=== PATIENT | male | born 1955 | race Caucasian/White ===

== ENCOUNTER → 2020-02-19 15:35 | Outpatient (BNVA) | payer MEDICARE, SELFPAY | PROVIDERS: PCP Internal Medicine; Referring Provider Internal Medicine; Visit Provider Surgery Vascular Surgery | DX: I83.11 Varicose veins of right lower extremity with inflammation (principal) | CPT/HCPCS: 99213 ==

== ENCOUNTER → 2020-02-24 16:00 | Outpatient (BNVA) | payer MEDICARE, SELFPAY | PROVIDERS: PCP Internal Medicine; Referring Provider Internal Medicine; Visit Provider Internal Medicine | DX: G47.33 Obstructive sleep apnea (adult) (pediatric) (principal); J44.9 Chronic obstructive pulmonary disease, unspecified; J96.11 Chronic respiratory failure with hypoxia; J96.12 Chronic respiratory failure with hypercapnia; E66.9 Obesity, unspecified; Z68.39 Body mass index [BMI] 39.0-39.9, adult; Z79.899 Other long term (current) drug therapy | CPT/HCPCS: 99213 ==

== ENCOUNTER → 2020-03-08 19:06 | Outpatient (REF) | payer MEDICARE, SELFPAY | LOC: HO.SL 19:06 | PROVIDERS: Visit Provider Internal Medicine | DX: G47.33 Obstructive sleep apnea (adult) (pediatric) (principal) | CPT/HCPCS: 95811 ==

== ENCOUNTER → 2020-03-15 09:58 | Outpatient (BNVA) | payer MEDICARE, SELFPAY | PROVIDERS: PCP Internal Medicine; Referring Provider Internal Medicine; Visit Provider Internal Medicine | DX: J44.9 Chronic obstructive pulmonary disease, unspecified (principal); J96.92 Respiratory failure, unspecified with hypercapnia; J96.91 Respiratory failure, unspecified with hypoxia; G47.33 Obstructive sleep apnea (adult) (pediatric); E66.9 Obesity, unspecified; Z87.891 Personal history of nicotine dependence | CPT/HCPCS: 99212 ==

== ENCOUNTER → 2020-04-09 11:28 | Outpatient (BNVA) | payer MEDICARE, SELFPAY | PROVIDERS: PCP Internal Medicine; Referring Provider Internal Medicine; Visit Provider Surgery Vascular Surgery | DX: I83.11 Varicose veins of right lower extremity with inflammation (principal) | CPT/HCPCS: 36482 ==

== ENCOUNTER 2020-04-12 09:56 | Outpatient (REF) | payer MEDICARE, SELFPAY ==
--- NOTE | 2020-04-12 | US_ITS ---
EXAMINATION: US VENOUS ULTRASOUND WITH DOPPLER LOWER EXTREMITY, RIGHT CLINICAL INFORMATION: Status post VenaSeal right leg 04/09/2020. COMPARISON: None. TECHNIQUE: Ultrasound of the deep veins is performed from the hip to the calf with compression sonography and color and pulse Doppler assessment. Spectral analysis with color-flow imaging is performed. FINDINGS: There is normal venous compression and respiratory variation and augmented flow. The visualized common femoral vein, superficial femoral vein, profunda femoral vein, popliteal vein, and the trifurcation region shows no evidence of deep venous thrombosis. There is no significant popliteal fossa cyst. There is thrombus visualized in right greater saphenous vein status post VenaSeal, approximate 5.9 cm from the junction with right superficial femoral vein. If the patient's symptoms persist, followup ultrasound in 5 days 7 days might be of value to exclude proximal propagation from a non-visualized calf vein. US/US venous duplex LE RT IMPRESSION: No DVT demonstrated in the right lower extremity.
== END 2020-04-12 09:57 | disposition home or self-care (01) ==
LOC: HO.HMGCX 09:56
PROVIDERS: PCP Internal Medicine; Visit Provider Surgery Vascular Surgery
DX: M79.604 Pain in right leg (principal)
CPT/HCPCS: 93971

== ENCOUNTER → 2020-05-04 10:05 | Outpatient (BNVA) | payer MEDICARE, SELFPAY | PROVIDERS: PCP Internal Medicine; Visit Provider Surgery Vascular Surgery | DX: Z48.812 Encounter for surgical aftercare following surgery on the circulatory system (principal) | CPT/HCPCS: 99212 ==

== ENCOUNTER → 2020-05-14 11:08 | Outpatient (BNVA) | payer MEDICARE, SELFPAY | PROVIDERS: PCP Internal Medicine; Visit Provider Internal Medicine Gastroenterology | DX: Z13.89 Encounter for screening for other disorder (principal) | CPT/HCPCS: Q3014 ==

== ENCOUNTER 2020-05-17 09:57 | Outpatient (REF) | payer MEDICARE, SELFPAY ==
--- NOTE | 2020-05-17 10:09 | XR_ITS ---
EXAMINATION: XR FOOT, LEFT CLINICAL INFORMATION: Left foot pain. COMPARISON: None TECHNIQUE: AP, lateral, and oblique views of the left foot. FINDINGS: There is no visible acute fracture, dislocation or subluxation. The ankle mortise and subtalar joints are normal. There is a small calcaneal heel and retrocalcaneal enthesophyte. The ankle mortise and subtalar joints are normal. XR/XR foot LT min 3V IMPRESSION: No visible acute fracture, dislocation or subluxation seen. Small calcaneal heel and retrocalcaneal enthesophytes.
== END 2020-05-17 09:58 | disposition home or self-care (01) ==
LOC: HO.XRAY 09:57
PROVIDERS: PCP Internal Medicine; Visit Provider Internal Medicine
DX: M79.672 Pain in left foot (principal)
CPT/HCPCS: 73630

== ENCOUNTER → 2020-05-31 09:37 | Outpatient (BNVA) | payer MEDICARE, SELFPAY | PROVIDERS: PCP Internal Medicine; Visit Provider Internal Medicine | DX: E66.9 Obesity, unspecified (principal); G47.33 Obstructive sleep apnea (adult) (pediatric); J44.9 Chronic obstructive pulmonary disease, unspecified; J96.91 Respiratory failure, unspecified with hypoxia; J96.92 Respiratory failure, unspecified with hypercapnia | CPT/HCPCS: 99212 ==

== ENCOUNTER 2020-07-14 | Day surgery (SDC) | payer MEDICARE, SELFPAY ==
[2020-07-14 12:55] VITALS: BP 100/38; PULSE 91; RESP 20; TEMP 36.7; O2SAT 99
[2020-07-14 13:10] VITALS: BP 125/54; PULSE 89; RESP 18; TEMP 36.4; O2SAT 95
[2020-07-14 13:25] VITALS: BP 131/69; PULSE 84; RESP 17; TEMP 36.4; O2SAT 95
--- NOTE | 2020-12-14 18:37 | P.BOP_ITS ---
Brief Operative Note Date of Service: 07/14/20 Pre-op diagnosis: same day relook EGD due to low BP post op from index procedure today Post-op diagnosis: other (stable clots in excision sites) Procedure: see op note Surgeon: Linda Shah MD Anesthesia: MAC Was an [employer] used for this Procedure?: No Estimated blood loss (mL): 0 Condition: stable Disposition: PACU
--- NOTE | 2020-12-14 18:40 | W.PM.OPN ---
Operative Note Operative Note Date of Service: 07/14/20 Narrative: Procedure Description: Re look EGD FLEXIBLE TRANSORAL UPPER GASTROINTESTINAL ENDOSCOPY UPPER ENDOSCOPY Consent: Indications for the procedure and potential complications of bleeding, perforation, reaction to medications and missed diagnosis were discussed with the patient and informed consent was obtained. Post index EGD procedure with Stomach polypectomy the patient was pale and had c/o nausea and epigastric discomfort, BP was depressed at 90 systolic. Abdomen was soft with mild tenderness in epigastrium. ECG obtained with SR, 1st deg block, no acute St changes. Patient given maalox and PPI, zofran re evaluated after 30 mins and felt better. However given he had several polyps removed and clips applied repeat EGD done to ensure no surreptitious bleeding prior to discharge home. Instrument: Olympus GIF H 190 J mid size upper endoscope Monitoring: Vital signs and clinical assessment, continuous EKG monitoring, Pulse oximetry, Carbon Dioxide monitoring and blood pressure monitoring were done throughout the procedure. Procedure: The patient was placed in the left lateral decubitis position and pre-procedure medications were administered and a bite block was placed. The endoscope was inserted into the mouth and advanced under direct vision to the third part of duodenum. A careful inspection was made as the upper endoscope was withdrawn including a retroflexed examination of the proximal stomach; Findings and interventions are described below. Findings: Larynx:normal Esophagus: Normal Stomach: Stable clots over areas of index procedure polypectomy sites noted. There was no active bleeding or concerning lesions. Duodenum: Normal bulb and descending duodenum, Intervention: none Impression/Findings: stable clot formation as would be expected after polypectomy, no active bleeding, he may have had a vasovagal event in post op from gastric distention PLAN: 1/ can go home 2/ avoid nsaids 3/ cont with o/p omeprazole
== END 2020-07-14 13:58 | disposition home or self-care (01) ==
LOC: HO.SSS 08-06 15:18
PROVIDERS: PCP Internal Medicine; Visit Provider Internal Medicine Gastroenterology
PROC: 0DJ08ZZ Inspection of Upper Intestinal Tract, Via Natural or Artificial Opening Endoscopic (ICD-10-PCS; CPT 43235; principal; 2020-07-14 11:50)
DX: K91.89 Other postprocedural complications and disorders of digestive system (principal); Y84.8 Other medical procedures as the cause of abnormal reaction of the patient, or of later complication, without mention of misadventure at the time of the procedure; Y92.238 Other place in hospital as the place of occurrence of the external cause; R03.1 Nonspecific low blood-pressure reading; R10.13 Epigastric pain; R11.0 Nausea; Z87.19 Personal history of other diseases of the digestive system; E66.9 Obesity, unspecified; I48.91 Unspecified atrial fibrillation; J44.9 Chronic obstructive pulmonary disease, unspecified; I10 Essential (primary) hypertension; E11.9 Type 2 diabetes mellitus without complications; Z79.4 Long term (current) use of insulin; Z79.01 Long term (current) use of anticoagulants; Z79.899 Other long term (current) drug therapy; Z79.51 Long term (current) use of inhaled steroids; Z88.8 Allergy status to other drugs, medicaments and biological substances; Z90.49 Acquired absence of other specified parts of digestive tract; Z87.891 Personal history of nicotine dependence
CPT/HCPCS: 43235; 82947; 88305; 88342; 93005; J0171; J2405

== ENCOUNTER 2020-07-14 08:04 | Day surgery (SDC) | payer MEDICARE, SELFPAY ==
[2020-07-09 12:51] VITALS: BMI 40.8
--- NOTE | 2020-07-13 10:15 | HO.ANESPROP2 ---
HPI - Anesthesia Eval Consult details Narrative: 64yo M for Upper Endoscopy Hypovent syndrome, CPAP/O2 QHS and prn during the day [facility] Active Problems Active Problems: All Active Problems (Updated 07/09/20 @ 12:47 by Sera Lynn) Varicose veins of right lower extremity with inflammation (Acute) Hyperplastic polyps of stomach (Acute) Duodenal ulcer (Acute) Respiratory failure with hypoxia and hypercapnia (Acute) COPD (chronic obstructive pulmonary disease) (Acute) TAE (obstructive sleep apnea) (Acute) Obesity (BMI 30-39.9) (Acute) Past Medical History Medical History Asthma Atrial fibrillation Cervical disc herniation COPD (chronic obstructive pulmonary disease) Diabetes Gynecomastia History of cardioversion Hyperlipidemia Hypertension Hypogonadism Obesity (BMI 30-39.9) TAE (obstructive sleep apnea) Respiratory failure with hypoxia and hypercapnia Family History Family History Father No problems noted. Mother No problems noted. Surgical History Surgical History (Updated 07/09/20 @ 12:47 by Sera Lynn) H/O arthroscopic knee surgery H/O colonoscopy H/O knee surgery H/O prior ablation treatment (04/09/20) H/O umbilical hernia repair H/O vasectomy History of cholecystectomy History of esophagogastroduodenoscopy (EGD) History of penile implant Hx of appendectomy Hx of neck surgery Hx of shoulder surgery Social History Social History Alcohol intake: current Alcohol intake frequency: a few times a month Alcohol type: beer Smoking Status: Former smoker Tobacco Type: Cigarette Packs Per Day: 2.5 Cigarettes Per Day: 50.0 Years Smoked: 40 Meds Allergies Allergy/AdvReac Type Severity Reaction Status Date / Time oxycodone [OXYCODONE] AdvReac Intermediate HALLUCINATIONS, Verified 05/31/20 09:49 DIZZINESS simvastatin AdvReac Intermediate myalgias Verified 07/09/20 12:43 elevated CPK Home Medications Medication Instructions Recorded Confirmed Last Taken Type albuterol sulfate 90 mcg/actuation 2 puff PO Q4H PRN 02/02/20 07/09/20 Unknown History aerosol inhaler amiodarone 200 mg tablet 200 mg PO DAILY 02/02/20 07/14/20 07/14/20 07:00 History 200 blood sugar diagnostic #10 ea 02/02/20 Unknown History cholecalciferol (vitamin D3) 25 25 mcg PO DAILY 02/02/20 07/09/20 Unknown History mcg (1,000 unit) tablet flu vac [id number] 36mos up(PF) ml IM 02/02/20 Unknown History gabapentin 600 mg tablet 600 mg PO TID 02/02/20 07/14/20 07/14/20 07:30 History 600 glucagon (human recombinant) 1 mg mg SUBCUT DAILY 02/02/20 Unknown History solution for injection glucose 4 gram chewable tablet 4 g PO 02/02/20 Unknown History ipratropium 0.5 mg-albuterol 3 mg 3 ml INHALATION Q6-8H PRN 02/02/20 07/09/20 Unknown History (2.5 mg base)/3 mL nebulization soln omeprazole 40 mg capsule,delayed 40 mg PO BID 02/02/20 07/09/20 Unknown History release pneumoc 13-leon conj-dip cr(PF) 0.5 0.5 ml IM DIRECTED 02/02/20 Unknown History mL IM syringe rosuvastatin 40 mg tablet 40 mg PO DAILY 02/02/20 07/09/20 Unknown History triamcinolone acetonide 0.1 % applic TOPICAL BID 02/02/20 Unknown History topical cream fluticasone 250 mcg-salmeterol 50 1 inh INHALATION BID 02/24/20 07/14/20 07/14/20 07:30 History mcg/dose blistr powdr for 1 inhalation insulin syringe-needle U-100 0.3 #10 ea 03/15/20 Unknown History mL 31 gauge x 09/19 metformin 1,000 mg tablet 1,000 mg PO BID 03/15/20 07/09/20 Unknown History nystatin 100,000 unit/gram topical TOPICAL BID 03/15/20 Unknown History powder pen needle, diabetic 32 gauge x #50 ea 03/15/20 Unknown History insulin aspart U-100 100 unit/mL 5 unit SUBCUT TID 05/14/20 07/09/20 Unknown History subcutaneous cartridge insulin degludec 100 unit/mL (3 10 unit SUBCUT BEDTIME 05/14/20 07/09/20 Unknown History mL) subcutaneous pen glipizide 5 mg tablet 5 mg PO DAILY 05/31/20 07/09/20 Unknown History Exam Exam Date and Time: July 13, 2020 1015 Height,Weight and Vital Signs: Height 5 ft 9 in Weight 125.645 kg Narrative Narrative: ECHO 11/2019 LV sys function is hyperdynamic 65-70% Indeterminate filling pressure Nml RV cavity size and systolic function LA is moderately dilated, RA is moderately dilated Mod elevated RA pressure. Mod pulmonary htn Assessment and Plan Assessment Anesthesia Assessment: Chart Reviewed
[2020-07-14] VITALS (10 sets, daily range): BP systolic 92–134; BP diastolic 39–64; PULSE 66–86; RESP 17–20; TEMP 36.3–36.9; O2SAT 95–100
[2020-07-14] MEDS: Lactated Ringers 1,000 ML 50 ML IV (08:42)
[2020-07-14 09:02] LABS: Glucose, Whole Blood 203 mg/dL (60-115)
--- NOTE | 2020-07-14 09:26 | P.HPSUR_ITS ---
Pre-Procedural Eval Section B Chief Complaint: gastric polyps Relevant Family History (Specify if Yes): No Relevant Social History: None (ex smoker) Present Medications: see Short Stay Collaborative assessment Medical History: Significant History (Asthma Atrial fibrillation Cervical disc herniation COPD (chronic obstructive pulmonary disease) Diabetes Gynecomastia History of cardioversion Hyperlipidemia Hypertension Hypogonadism Obesity (BMI 30-39.9) TAE (obstructive sleep apnea) Respiratory failure with hypoxia and hypercapnia) History of Previous Operations: Relevant previous surgery/procedure and date(s) (H/O arthroscopic knee surgery H/O colonoscopy H/O knee surgery H/O prior ablation treatment (04/09/20) H/O umbilical hernia repair H/O vasectomy History of cholecystectomy History of esophagogastroduodenoscopy (EGD) History of penile implant Hx of appendectomy Hx of neck surgery Hx of shoulder surge) Allergies: Allergies Allergy/AdvReac Type Severity Reaction Status Date / Time oxycodone [OXYCODONE] AdvReac Intermediate HALLUCINATIONS, Verified 05/31/20 09:49 DIZZINESS simvastatin AdvReac Intermediate myalgias Verified 07/09/20 12:43 elevated CPK Review of Systems Sugical H&P ROS: Negative: Constitution, Cardiovascular, Respiratory, Neurologic al, Psychiatric, Hem-Onc, Allergic/Immunologic, Gastrointestinal, Genitourinary, Musculoskeletal, Integumentary, Endocrine and Eyes/Ears/Nose/Throat Exam Surgical H&P Exam: Normal: HEENT, Normal: Heart, Normal: Lungs, Normal: Extremities, Normal: Abdomen, Normal: Skin and Normal: Neurological Plan Diagnosis/Plan: Unchanged I have reviewed the history and physical and performed a pertinent physical examination on my patient. No changes have occurred unless specified.
--- NOTE | 2020-07-14 10:26 | PM.OP ---
Brief Operative Note Date of Service: 07/14/20 Pre-op diagnosis: anemia, and gastric polyps Post-op diagnosis: same Procedure: see op note Surgeon: Linda Shah MD Anesthesia: MAC Estimated blood loss (mL): 0 Condition: stable Disposition: PACU
--- NOTE | 2020-07-14 10:27 | W.PM.OPN ---
Operative Note Operative Note Date of Service: 07/14/20 Narrative: Procedure Description: EGD FLEXIBLE TRANSORAL UPPER GASTROINTESTINAL ENDOSCOPY UPPER ENDOSCOPY Consent: Indications for the procedure and potential complications of bleeding, perforation, reaction to medications and missed diagnosis were discussed with the patient and informed consent was obtained. Instrument: Olympus GIF H 190 J mid size upper endoscope Monitoring: Vital signs and clinical assessment, continuous EKG monitoring, Pulse oximetry, Carbon Dioxide monitoring and blood pressure monitoring were done throughout the procedure. Procedure: The patient was placed in the left lateral decubitis position and pre-procedure medications were administered and a bite block was placed. The endoscope was inserted into the mouth and advanced under direct vision to the third part of duodenum. A careful inspection was made as the upper endoscope was withdrawn including a retroflexed examination of the proximal stomach; Findings and interventions are described below. Findings: Larynx:normal Esophagus: GE junction at 42 cm, diaphragm hiatus at 42 cm, no varices or esophagitis. Stomach: Patchy gastric erythema bx taken, one small erosion noted. Biopsies were obtained. Lax LES noted on retroflexed examination of the cardia. There were 5 polypoid lesions ranging from 8-16 mm in size, two of which were pedunculated-noted in the mid stomach body and proximal stomach. 1 ml of epinephrine was injected into 3 of these and these were removed using hot snare, the others were removed with cold snare. The larger polypectomy sites had clips applied 8 in total between them, one clip did not deploy properly. Residual polyp tissue was ablated with soft tip coag. Duodenum: Normal bulb and descending duodenum Intervention: Biopsies as noted above, polypectomy and epinephrine injection Impression/Findings: gastric polyps gastritis, erosion PLAN: avoid nsaids for 5 days can have regular diet today if any abdominal pain, melena, call the office
--- NOTE | 2020-07-14 10:44 | PC.NURSE ---
patient nausous and vomiting dr. colmenares ordering meds
[2020-07-14] MEDS: ondansetron HCL 4 MG/2 ML VIAL IVPUSH (10:53)
[2020-07-14] MEDS: Magnesium Hydrox/Alum Hydrox 30 ML ORAL.SUSP PO (11:19)
[2020-07-14] MEDS: Pantoprazole Sodium 40 MG/10 ML VIAL IVPUSH (11:19)
--- NOTE | 2020-07-14 11:44 | ECG_ITS ---
Test Reason : CHEST PAIN Blood Pressure : / mmHG Vent. Rate : 072 BPM Atrial Rate : 072 BPM P-R Int : 234 ms QRS Dur : 096 ms QT Int : 428 ms P-R-T Axes : 056 000 022 degrees QTc Int : 468 ms Sinus rhythm with 1st degree A-V block Otherwise normal ECG When compared with ECG of 02-DEC-2019 07:34, Sinus rhythm has replaced Atrial fibrillation Referred By: Linda Shah Electronically Signed By:Taiwo Kelly
--- NOTE | 2020-07-14 11:46 | PC.NURSE ---
ekg done at bedside dr huerta and anesthesia plan for patient to return emergent to endo to look at clips for bleeding due to pain and drop in bp.
== END 2020-07-14 13:58 | disposition home or self-care (01) ==
PROVIDERS: PCP Internal Medicine; Visit Provider Internal Medicine Gastroenterology
PROC: 0DJ08ZZ Inspection of Upper Intestinal Tract, Via Natural or Artificial Opening Endoscopic (ICD-10-PCS; CPT 43235; principal; 2020-07-14 09:20)
DX: K31.7 Polyp of stomach and duodenum (principal); K29.60 Other gastritis without bleeding; K44.9 Diaphragmatic hernia without obstruction or gangrene; I48.91 Unspecified atrial fibrillation; I10 Essential (primary) hypertension; J44.9 Chronic obstructive pulmonary disease, unspecified; E11.9 Type 2 diabetes mellitus without complications; G47.33 Obstructive sleep apnea (adult) (pediatric); J96.12 Chronic respiratory failure with hypercapnia; J96.11 Chronic respiratory failure with hypoxia; Z79.51 Long term (current) use of inhaled steroids; Z79.4 Long term (current) use of insulin; F17.210 Nicotine dependence, cigarettes, uncomplicated; Z79.899 Other long term (current) drug therapy; Z88.8 Allergy status to other drugs, medicaments and biological substances
CPT/HCPCS: 43251; 43236; 82947; 88305; 88342; 93005; J0171; J2405

== ENCOUNTER 2020-08-13 14:55 | Inpatient (IN) | payer MEDICARE, SELFPAY ==
--- NOTE | ~2020-08-13 | CT_ITS ---
EXAMINATION: CT SOFT TISSUE NECK WITH CONTRAST CLINICAL INFORMATION: Neck and jaw swelling. COMPARISON: None TECHNIQUE: Following the administration of 100 mL of Omnipaque 300 intravenous contrast, helical imaging was performed in the axial plane with generation of coronal and sagittal reformatted images. This CT examination was performed using dose optimization techniques as appropriate, variously including the following: *Automated exposure control *Adjustment of mA and/or kV according to patient size (this includes techniques or standardized protocols for targeted exams where dose is matched to indication/reason for exam; i.e. extremities or head) *Use of iterative reconstruction technique DLP: 912 mGy-cm FINDINGS: There is a large elongated calculus within the left submandibular duct along the floor of mouth measuring up to 1.5 cm in maximal dimension. The left submandibular gland appears edematous with inflammatory stranding extending through the submandibular triangle. The subcutaneous and deep fat appear infiltrated in the platysma is mildly thickened. No drainable collection is seen. The right parotid glands and right submandibular gland appear normal. There is right-sided palatine tonsillolith. Calcification is seen within the epiglottis. The laryngeal contours are otherwise unremarkable. Reactive appearing left level 2 lymph nodes are seen. There is no suppurative adenopathy. The thyroid gland is unremarkable. No enlarged upper mediastinal lymph nodes are seen. Centrilobular and paraseptal emphysema is present within the upper lungs. The major neck vessels are patent. The imaged portions of the intracranial contents appear normal. Degenerative changes are noted in the spine. The paranasal sinuses are clear. CT/CT soft tissue neck w con IMPRESSION: Large obstructing calculus within the left submandibular duct with associated acute sialoadenitis. No drainable collection.
[2020-08-13 15:26] VITALS: BP 166/75; PULSE 87; RESP 20; TEMP 36.8; O2SAT 97; BMI 48.9
[2020-08-13 16:59] VITALS: BP 163/81; PULSE 84; RESP 18; TEMP 36.8; O2SAT 95
--- NOTE | 2020-08-13 17:14 | ECG_ITS ---
Test Reason : NECK PAIN Blood Pressure : / mmHG Vent. Rate : 084 BPM Atrial Rate : 084 BPM P-R Int : 214 ms QRS Dur : 096 ms QT Int : 406 ms P-R-T Axes : 048 000 033 degrees QTc Int : 479 ms Sinus rhythm with 1st degree A-V block Otherwise normal ECG When compared with ECG of 14-JUL-2020 11:42, No significant change was found Referred By: Martine Dillon Electronically Signed By:NEHA WALKER
--- NOTE | 2020-08-13 17:27 | ED.DENTAL ---
HPI - Dental/Oral General Chief complaint: Dental/Oral Stated complaint: FACIAL SWELLING Time Seen by Provider: 08/13/20 18:12 Source: patient Mode of arrival: ambulatory Limitations: no limitations History of Present Illness HPI Narrative: 65-year-old male past medical history of AFib on Xarelto, COPD O2 dependent, insulin-dependent diabetic, hypertension, hyperlipidemia, morbid obesity, obstructive sleep apnea compliant with CPAP presents with left-sided jaw pain, swelling, change in voice, and inability to swallow food. He is able to manage secretions but has a difficult time with large amounts of fluids. He feels like the inside of his mouth is smaller, which makes it more difficult to breathe. He has pain when turning his head, and the pain radiates down to the left midclavicular line. He denies chest pain or pressure, palpitations, abdominal pain, abdominal distention, dysuria, hematuria, dizziness, weakness, changes in vision, and edema. Teeth map: 1. Onset (ago): week(s) (2) Duration: constant Severity: severe Severity scale (1-10): 9 Relieving factors: nothing Exacerbating factors: chewing and swallowing Context: history of dental caries Associated symptoms: pain with swallowing Related Data Home Medications Medication Instructions Recorded Confirmed albuterol sulfate 90 mcg/actuation 2 puff PO Q4H PRN 02/02/20 08/14/20 aerosol inhaler amiodarone 200 mg tablet 200 mg PO DAILY 02/02/20 08/14/20 blood sugar diagnostic #10 ea 02/02/20 cholecalciferol (vitamin D3) 25 25 mcg PO DAILY 02/02/20 08/14/20 mcg (1,000 unit) tablet gabapentin 600 mg tablet 600 mg PO TID 02/02/20 08/14/20 glucagon (human recombinant) 1 mg 1 mg SUBCUT DAILY 02/02/20 08/14/20 solution for injection ipratropium 0.5 mg-albuterol 3 mg 3 ml INHALATION Q6-8H PRN 02/02/20 07/09/20 (2.5 mg base)/3 mL nebulization soln omeprazole 40 mg capsule,delayed 40 mg PO BID 02/02/20 08/14/20 release pneumoc 13-leon conj-dip cr(PF) 0.5 0.5 ml IM DIRECTED 02/02/20 08/14/20 mL IM syringe rosuvastatin 40 mg tablet 40 mg PO DAILY 02/02/20 08/14/20 triamcinolone acetonide 0.1 % 0.1 applic TOPICAL BID 02/02/20 08/14/20 topical cream fluticasone 250 mcg-salmeterol 50 1 inh INHALATION BID 02/24/20 08/14/20 mcg/dose blistr powdr for inhalation insulin syringe-needle U-100 0.3 #10 ea 03/15/20 mL 31 gauge x 09/19 metformin 1,000 mg tablet 1,000 mg PO BID 03/15/20 08/14/20 nystatin 100,000 unit/gram topical 100,000 unit TOPICAL BID 03/15/20 08/14/20 powder pen needle, diabetic 32 gauge x #50 ea 03/15/20 insulin aspart U-100 100 unit/mL 5 unit SUBCUT TID 05/14/20 08/14/20 subcutaneous cartridge insulin degludec 100 unit/mL (3 10 unit SUBCUT BEDTIME 05/14/20 08/14/20 mL) subcutaneous pen glipizide 5 mg tablet 5 mg PO DAILY 05/31/20 08/14/20 Allergies Allergy/AdvReac Type Severity Reaction Status Date / Time oxycodone [OXYCODONE] AdvReac Intermediate HALLUCINATIONS, Verified 05/31/20 09:49 DIZZINESS simvastatin AdvReac Intermediate myalgias Verified 07/09/20 12:43 elevated CPK Review of Systems Review of Systems: Constitutional: No Fever, No Chills ENT/Mouth: Moderate swallowing difficulty, positive change in voice, positive dental pain, positive jaw pain, positive facial swelling Eyes: No Eye Pain, No Swelling Cardiovascular: No Chest Pain, No SOB Respiratory: No Cough, No Sputum, No Wheezing, No Smoke Exposure, No Dyspnea Gastrointestinal: No Nausea, No Vomiting, No Diarrhea Genitourinary: No Dysuria Musculoskeletal: No Myalgias Skin: No rash Neuro: No Weakness, No Numbness, No Headache Yes all other systems are reviewed and are negative PMFSH Past Medical History Attestation statement: The following information was validated with the patient. Source: old records reviewed Medical History Asthma Atrial fibrillation Cervical disc herniation COPD (chronic obstructive pulmonary disease) Diabetes Gynecomastia History of cardioversion Hyperlipidemia Hypertension Hypogonadism Obesity (BMI 30-39.9) TAE (obstructive sleep apnea) Respiratory failure with hypoxia and hypercapnia Surgical History H/O arthroscopic knee surgery H/O colonoscopy H/O knee surgery H/O prior ablation treatment (04/09/20) H/O umbilical hernia repair H/O vasectomy History of cholecystectomy History of esophagogastroduodenoscopy (EGD) History of penile implant Hx of appendectomy Hx of neck surgery Hx of shoulder surgery Family History Family History Father No problems noted. Mother No problems noted. Social History Social History Alcohol intake: current Alcohol intake frequency: holidays/special occasions only Alcohol type: beer Smoking Status: Never smoker Tobacco Type: Cigarette Packs Per Day: 2.5 Cigarettes Per Day: 50.0 Years Smoked: 40 Use of substances other than those prescribed or required for medical reasons: No Advance Directives: No Advance Directives Information Provided: No Physical Exam Vital Signs: Vital Signs: Last Vital Signs Temp 97.9 F 08/13/20 18:35 Pulse 90 08/13/20 21:08 Resp 18 08/13/20 21:08 BP 141/61 H 08/13/20 21:08 Pulse Ox 97 08/13/20 21:08 Body Mass Index 48.9 Appearance: Alert. Oriented X 4. Moderate distress. Head: Normal external exam. Normocephalic. Atraumatic. No Burkett signs noted. No raccoon eyes noted Eyes: PERRLA. EOMI. Conjunctiva and sclera normal. Eyelids normal. ENT: TM's Normal. Pharynx normal. Uvula midline. Moist mucous membranes. No trismus noted. Mild drooling noted. Slightly muffled voice noted. Hardness noted from submandibular to left molars, left-sided facial swelling and lymphadenopathy noted, tenderness noted from the sternocleidomastoids to the midclavicular line, no TMJ tenderness or clicking, no tracheal shift Neck: Normal inspection. Neck supple. Positive left-sided adenopathy. Submandibular mass or abscess palpated. CVS: Normal heart rate and rhythm. Heart sound normal. No murmurs noted. Pulses equal to all extremities. Respiratory: No respiratory distress. Painless inspiration. Breath sounds normal. No wheezes/rales/rhonchi noted. Chest nontender. No accessory muscle usage noted or decreased air movement noted. Abdomen: Soft and nontender. Morbidly obese. Bowel sounds normal in all 4 quadrants. No distention noted. No organomegaly noted. No visible injury noted. Back: No CVA tenderness. Full range of motion noted. Skin: Skin warm and dry. Normal skin color. Normal skin turgor. No rashes/lesions/lacerations noted. Extremities: No lower extremity edema. Extremities exhibit normal range of motion. Extremities nontender. Neuro: cranial nerves 2-12 intact, no focal neural deficits, strength 5/5 to all extremities, No motor deficit. No sensory deficit. Reflexes normal. Course Course Course Narrative: 65-year-old male past medical history of AFib on Xarelto, COPD O2 dependent, insulin-dependent diabetic, hypertension, hyperlipidemia, morbid obesity, obstructive sleep apnea compliant with CPAP presents with left-sided jaw pain, swelling, change in voice, and inability to swallow food. He does have a muscle voice and has some intermittent drooling when he has to swallow multiple times in a short period of time. He was seen by a dentist on Sunday and given antibiotics, though does not recall the name of the medications. Based on the severity of his swelling, change in voice, inability to swallow will order CT with contrast of soft tissue neck. We will initiate IV antibiotics, Unasyn, and 1 L of fluid. Will give morphine for pain management and Zofran for nausea prevention. Patient does have history of left-sided submandibular calculus that was extracted in May of 1999, stated that there were several more stones but they were not large enough to be extracted at that time. CT scan indicates 1.5 cm obstructing submandibular calcification with adenitis. White count 8.8, hemoglobin 10.3, hematocrit 35.8 which is consistent with prior values, BUN 24 consistent with mild dehydration, creatinine is 1.02 no indication of GRAHAM, lactic acid 1.8, patient is not septic. COVID-19 test negative. Call out to [facility]. 11:[address] discussion [address] ENT Dr. Toro at [facility], feels that patient is stable and is not a surgical candidate. [facility] cannot accept this patient at this time as they are close to all stable patient transfers, Dr. Toro stated that if she were to accept this patient that she would have him admitted to Medicine with IV antibiotics without surgical intervention. 11:59 p.m. discussion with hospitalist, plan is to admit for IV antibiotics and pain management. Patient verbalized understanding of plan to admit and appreciative of care. Consultations Consultation #1: [place] Dr[facility] Troo Time: 11:53 Consultation #2: Phyllis Time: 11:59 MDM - Dental/Oral Differential Diagnosis Differential diagnosis: Likely gingival abscess and dental abscess Medical Records Attestation: I reviewed the patient's medical records. Lab Data Attestation: I reviewed the patient's lab results. Result diagrams: 08/13/20 17:44 08/13/20 17:44 Labs: Lab Results 08/13/20 08/13/20 08/13/20 Range/Units 17:44 17:44 17:44 WBC 8.8 (4.8-10.8) X10*3/uL RBC 4.70 (4.60-5.80) X10*6/uL Hgb 10.3 L (14.0-18.0) g/dl Hct 35.8 L (42-52) % MCV 76.2 L (80-98) fL MCH 21.9 L (27.0-33.0) pg MCHC 28.8 L (31.0-36.0) g/dl RDW 17.5 H (11.0-16.0) % Plt Count 280 (160-400) X10*3/uL MPV 10.1 (9.4-12.4) fL Immature Gran % (Auto) 0.5 H (0.0-0.4) % Neut % (Auto) 73.5 H (45-73) % Lymph % (Auto) 15.7 L (20-40) % [place] % (Auto) 8.0 (2-11) % Eos % (Auto) 1.8 (0-4) % Baso % (Auto) 0.5 (0-2) % Lymph # (Auto) 1.4 (1.2-4.9) X10*3/uL [place] # (Auto) 0.7 (0.1-1.2) X10*3/uL Eos # (Auto) 0.2 (0.0-0.4) X10*3/uL Baso # (Auto) 0.0 (0.0-0.2) X10*3/uL Abs Immat Gran (auto) 0.04 H (0.00-0.03) X10*3/uL Absolute Neuts (auto) 6.4 (2.0-8.3) X10*3/uL Absolute Nucleated RBC 0.000 (0.0-0.012) X10*3/uL Nucleated RBC % (auto) 0.0 (0.0-0.2) /100WBC PT 18.4 H (10.8-13.0) SEC INR 1.5 H (0.9-1.1) APTT 41.5 H (24.1-38.0) SEC Sodium 140 (135-145) mmol/L Potassium 4.3 (3.3-5.1) mmol/L Chloride 99 (96-108) mmol/L Carbon Dioxide 30 H (22-29) mmol/L Anion Gap 15 (12-20) BUN 24 H (9-16) mg/dL Creatinine 1.02 (0.5-1.4) mg/dL Estim Creat Clear Calc 87.8 Estimated GFR > 60 Random Glucose 169 H (60-115) mg/dL Lactic Acid (0.5-2.0) mmol/L Calcium 8.9 (8.4-10.2) mg/dL Magnesium 2.0 (1.6-2.6) mg/dL Troponin I High Sens (<3.5-35.0) ng/L Coronavirus (PCR) (Negative) Influenza Type A (PCR) (Negative) Influenza Type B (PCR) (Negative) RSV RNA Qual (PCR) (Negative) 08/13/20 08/13/20 08/13/20 Range/Units 17:44 17:44 17:44 WBC (4.8-10.8) X10*3/uL RBC (4.60-5.80) X10*6/uL Hgb (14.0-18.0) g/dl Hct (42-52) % MCV (80-98) fL MCH (27.0-33.0) pg MCHC (31.0-36.0) g/dl RDW (11.0-16.0) % Plt Count (160-400) X10*3/uL MPV (9.4-12.4) fL Immature Gran % (Auto) (0.0-0.4) % Neut % (Auto) (45-73) % Lymph % (Auto) (20-40) % [place] % (Auto) (2-11) % Eos % (Auto) (0-4) % Baso % (Auto) (0-2) % Lymph # (Auto) (1.2-4.9) X10*3/uL [place] # (Auto) (0.1-1.2) X10*3/uL Eos # (Auto) (0.0-0.4) X10*3/uL Baso # (Auto) (0.0-0.2) X10*3/uL Abs Immat Gran (auto) (0.00-0.03) X10*3/uL Absolute Neuts (auto) (2.0-8.3) X10*3/uL Absolute Nucleated RBC (0.0-0.012) X10*3/uL Nucleated RBC % (auto) (0.0-0.2) /100WBC PT (10.8-13.0) SEC INR (0.9-1.1) APTT (24.1-38.0) SEC Sodium (135-145) mmol/L Potassium (3.3-5.1) mmol/L Chloride (96-108) mmol/L Carbon Dioxide (22-29) mmol/L Anion Gap (12-20) BUN (9-16) mg/dL Creatinine (0.5-1.4) mg/dL Estim Creat Clear Calc Estimated GFR Random Glucose (60-115) mg/dL Lactic Acid 1.8 (0.5-2.0) mmol/L Calcium (8.4-10.2) mg/dL Magnesium (1.6-2.6) mg/dL Troponin I High Sens 5.9 (<3.5-35.0) ng/L Coronavirus (PCR) NEGATIVE (Negative) Influenza Type A (PCR) NEGATIVE (Negative) Influenza Type B (PCR) NEGATIVE (Negative) RSV RNA Qual (PCR) NEGATIVE (Negative) Imaging Data CT soft tissue neck: Attestation: I personally reviewed and interpreted this imaging study as follows: Radiologist's impression: EXAMINATION: CT SOFT TISSUE NECK WITH CONTRAST CLINICAL INFORMATION: Neck and jaw swelling. COMPARISON: None TECHNIQUE: Following the administration of 100 mL of Omnipaque 300 intravenous contrast, helical imaging was performed in the axial plane with generation of coronal and sagittal reformatted images. This CT examination was performed using dose optimization techniques as appropriate, variously including the following: *Automated exposure control *Adjustment of mA and/or kV according to patient size (this includes techniques or standardized protocols for targeted exams where dose is matched to indication/reason for exam; i.e. extremities or head) *Use of iterative reconstruction technique DLP: 912 mGy-cm FINDINGS: There is a large elongated calculus within the left submandibular duct along the floor of mouth measuring up to 1.5 cm in maximal dimension. The left submandibular gland appears edematous with inflammatory stranding extending through the submandibular triangle. The subcutaneous and deep fat appear infiltrated in the platysma is mildly thickened. No drainable collection is seen. The right parotid glands and right submandibular gland appear normal. There is right-sided palatine tonsillolith. Calcification is seen within the epiglottis. The laryngeal contours are otherwise unremarkable. Reactive appearing left level 2 lymph nodes are seen. There is no suppurative adenopathy. The thyroid gland is unremarkable. No enlarged upper mediastinal lymph nodes are seen. Centrilobular and paraseptal emphysema is present within the upper lungs. The major neck vessels are patent. The imaged portions of the intracranial contents appear normal. Degenerative changes are noted in the spine. The paranasal sinuses are clear. CT/CT soft tissue neck w con IMPRESSION: Large obstructing calculus within the left submandibular duct with associated acute sialoadenitis. No drainable collection. ECG Data Attestation: I personally reviewed and interpreted this ECG as follows: ECG interpretation date: 08/13/20 ECG interpretation time: 18:14 Interpretation: Vent. rate 84 BPM OR interval 214 ms QRS duration 96 ms QT/QTc 406/479 ms P-R-T axes 48 0 33 Sinus rhythm with 1st degree A-V block Otherwise normal ECG When compared with ECG of 14-JUL-2020 11:42, No significant change was found Critical Care Time Critical Care Time Critical Care Time: Yes Total Critical Care Time: 65 Attestation: I have personally provided critical care time exclusive of time spent on separately billable procedures. Time includes review of laboratory data, radiology results, discussion with consultants, and monitoring for potential decompensation. Interventions were performed as documented. Discharge Plan Discharge Clinical Impression: Sialoadenitis of submandibular gland, Submandibular duct obstruction, Submandibular gland inflammation Patient Disposition: Admitted As Inpatient
[2020-08-13 17:52] LABS: Basophils Percent Auto 0.5 % (0-2); Eosinophils Absolute Auto 0.2 X10*3/uL (0.0-0.4); Eosinophils Percent Auto 1.8 % (0-4); Hematocrit 35.8 % (42-52); Hemoglobin 10.3 g/dl (14.0-18.0); Imm Gran Abs Auto 0.04 X10*3/uL (0.00-0.03); Imm Gran Pct Auto 0.5 % (0.0-0.4); Lymphocytes Absolute Auto 1.4 X10*3/uL (1.2-4.9); Lymphocytes Percent Auto 15.7 % (20-40); Mean Corpuscular HGB Conc 28.8 g/dl (31.0-36.0); Mean Corpuscular Hemoglobin 21.9 pg (27.0-33.0); Mean Corpuscular Volume 76.2 fL (80-98); Mean Platelet Volume 10.1 fL (9.4-12.4); Monocytes Absolute Auto 0.7 X10*3/uL (0.1-1.2); Neutrophils Absolute Auto 6.4 X10*3/uL (2.0-8.3); Neutrophils Percent Auto 73.5 % (45-73); Platelet Count 280 X10*3/uL (160-400); Red Cell Distribution Width 17.5 % (11.0-16.0); White Blood Count 8.8 X10*3/uL (4.8-10.8)
[2020-08-13 17:53] LABS: MANUAL DIFF FLAG NO
[2020-08-13 18:03] LABS: INTERNATIONAL NORM RATIO 1.5 (0.9-1.1); Prothrombin Time 18.4 SEC (10.8-13.0)
[2020-08-13 18:07] LABS: Lactic Acid 1.8 mmol/L (0.5-2.0)
[2020-08-13 18:08] VITALS: RESP 16
[2020-08-13] MEDS: 0.9 % Sodium Chloride 1,000 ML 999 ML IVCONT (18:08)
[2020-08-13] MEDS: ondansetron HCL 4 MG/2 ML VIAL IVPUSH (18:08)
[2020-08-13] MEDS: Morphine Sulfate 4 MG/ML CARTRIDGE IVPUSH ×4 (18:08→23:49)
[2020-08-13] MEDS: Ampicillin Sodium/Sulbactam Na 3 GM in 0.9 % Sodium Chloride 100 ML IV (18:09)
[2020-08-13 18:18] LABS: Troponin-I High Sensitivity 5.9 ng/L (<3.5-35.0)
[2020-08-13 18:21] LABS: Partial Thromboplastin Time 41.5 SEC (24.1-38.0)
[2020-08-13 18:23] LABS: Anion Gap 15 (12-20); Blood Urea Nitrogen 24 mg/dL (9-16); Calcium 8.9 mg/dL (8.4-10.2); Carbon Dioxide 30 mmol/L (22-29); Chloride 99 mmol/L (96-108); Creatinine Clr Calc Pharmacy 87.8; Estimated Glomerular Filt Rate > 60; Glucose Random 169 mg/dL (60-115); Potassium 4.3 mmol/L (3.3-5.1); Sodium 140 mmol/L (135-145)
[2020-08-13 18:33] LABS: Influenza A PCR NEGATIVE (Negative); Influenza B PCR NEGATIVE (Negative); Resp Syncy Virus RNA Qual PCR NEGATIVE (Negative); SARS COV2 PCR INHOUSE NEGATIVE (Negative)
[2020-08-13 18:35] VITALS: BP 129/48; PULSE 72; RESP 16; TEMP 36.6; O2SAT 96
[2020-08-13 18:36] VITALS: RESP 16
[2020-08-13] MEDS: iohexoL 350 MG/ML 100 ML INFUS..BTL IV (19:24)
--- NOTE | 2020-08-13 19:27 | PC.NURSE ---
PT TO CT.
--- NOTE | 2020-08-13 19:50 | PC.NURSE ---
PT C/O PAIN TO RIGHT SIDE OF JAW. PT AWAITING FOR CT RESULTS. WILL CONTINUE TO MONITOR PT.
[2020-08-13 21:08] VITALS: BP 141/61; PULSE 90; RESP 18; O2SAT 97
--- NOTE | 2020-08-13 23:32 | PC.NURSE ---
pt urinating in urinal. pt requesting socks and warm blanket. pt still c/o jaw pain. pa aware.
--- NOTE | 2020-08-14 00:32 | PM.IMHP ---
History of Present Illness Date of Service: 08/14/20 Chief Complaint: difficulty swallowing, swelling in face This is a 65-year-old male with past medical history of COPD on baseline oxygen, AFib, TAE on CPAP, DM, HTN, HLD, who presents to the hospital with complaints of left-sided facial swelling, difficulty swallowing. Patient reports that his symptoms started on Sunday initial start with swelling in his left sees that has worsened since, associated with difficulty swallowing mostly solids due to the pain and swelling in his throat but has now also do has difficulty swallowing liquids again due to the pain. It the swelling his face is localized to the left lower face/jaw, 04/15 pain, nonradiating. No relieving or exacerbating factors. Patient reports a similar episode in May 2019 due to blockage in his submandibular duct. He otherwise denies any difficulty breathing although reports that he has baseline CO2 and his baseline shortness of breath has not worsened. He has no increased cough unknown increased sputum production, no fever or chills, no abdominal pain nausea or vomiting, no chest pain, no palpitations, no diarrhea constipation, no urinary symptoms and no lower extremity edema. Vitals on arrival hemodynamically stable with no significant abnormality Labs are significant for WBC count of 8.8, hemoglobin of 10.3 which is around his baseline, hematocrit 35.8, PT of 18.4, INR of 1.5, lactic acid of 1.8, negative troponin, COVID-19 negative, Soft tissue neck CT shows large obstructing calculus within the left submandibular duct with associated acute cellular adenitis. No drainable collection. [facility] was initially contacted for transfer but refused the patient as they feel that he does not need any surgical intervention Past medical history as below on come from a facial Review of Systems Review of Systems: Yes all other systems are reviewed and are negative [facility] Medical History Asthma Atrial fibrillation Cervical disc herniation COPD (chronic obstructive pulmonary disease) Diabetes Gynecomastia History of cardioversion Hyperlipidemia Hypertension Hypogonadism Obesity (BMI 30-39.9) TAE (obstructive sleep apnea) Respiratory failure with hypoxia and hypercapnia Functional capacity: independent ambulation Family History Father No problems noted. Mother No problems noted. Surgical History H/O arthroscopic knee surgery H/O colonoscopy H/O knee surgery H/O prior ablation treatment (04/09/20) H/O umbilical hernia repair H/O vasectomy History of cholecystectomy History of esophagogastroduodenoscopy (EGD) History of penile implant Hx of appendectomy Hx of neck surgery Hx of shoulder surgery Social History Alcohol intake: current Alcohol intake frequency: holidays/special occasions only Alcohol type: beer Smoking Status: Never smoker Tobacco Type: Cigarette Packs Per Day: 2.5 Cigarettes Per Day: 50.0 Years Smoked: 40 Use of substances other than those prescribed or required for medical reasons: No Advance Directives: No Advance Directives Information Provided: No Meds Allergies Allergy/AdvReac Type Severity Reaction Status Date / Time oxycodone [OXYCODONE] AdvReac Intermediate HALLUCINATIONS, Verified 05/31/20 09:49 DIZZINESS simvastatin AdvReac Intermediate myalgias Verified 07/09/20 12:43 elevated CPK Active Medications: Current Medications Generic Name Dose Route Start Last Admin Trade Name Freq PRN Reason Stop Dose Admin Pharmacy Consult 1 each 08/14/20 00:06 Consult Rx Perform Med Rec MISCELLANE ONCE PRN Consult order Home Medications Medication Instructions Recorded Confirmed Last Taken Type albuterol sulfate 90 mcg/actuation 2 puff PO Q4H PRN 02/02/20 08/14/20 Unknown History aerosol inhaler amiodarone 200 mg tablet 200 mg PO DAILY 02/02/20 08/14/20 07/14/20 07:00 History 200 blood sugar diagnostic #10 ea 02/02/20 Unknown History cholecalciferol (vitamin D3) 25 25 mcg PO DAILY 02/02/20 08/14/20 Unknown History mcg (1,000 unit) tablet gabapentin 600 mg tablet 600 mg PO TID 02/02/20 08/14/20 07/14/20 07:30 History 600 glucagon (human recombinant) 1 mg 1 mg SUBCUT DAILY 02/02/20 08/14/20 Unknown History solution for injection ipratropium 0.5 mg-albuterol 3 mg 3 ml INHALATION Q6-8H PRN 02/02/20 07/09/20 Unknown History (2.5 mg base)/3 mL nebulization soln omeprazole 40 mg capsule,delayed 40 mg PO BID 02/02/20 08/14/20 Unknown History release pneumoc 13-leon conj-dip cr(PF) 0.5 0.5 ml IM DIRECTED 02/02/20 08/14/20 Unknown History mL IM syringe rosuvastatin 40 mg tablet 40 mg PO DAILY 02/02/20 08/14/20 Unknown History triamcinolone acetonide 0.1 % 0.1 applic TOPICAL BID 02/02/20 08/14/20 Unknown History topical cream fluticasone 250 mcg-salmeterol 50 1 inh INHALATION BID 02/24/20 08/14/20 07/14/20 07:30 History mcg/dose blistr powdr for 1 inhalation insulin syringe-needle U-100 0.3 #10 ea 03/15/20 Unknown History mL 31 gauge x 09/19 metformin 1,000 mg tablet 1,000 mg PO BID 03/15/20 08/14/20 Unknown History nystatin 100,000 unit/gram topical 100,000 unit TOPICAL BID 03/15/20 08/14/20 Unknown History powder pen needle, diabetic 32 gauge x #50 ea 03/15/20 Unknown History insulin aspart U-100 100 unit/mL 5 unit SUBCUT TID 05/14/20 08/14/20 Unknown History subcutaneous cartridge insulin degludec 100 unit/mL (3 10 unit SUBCUT BEDTIME 05/14/20 08/14/20 Unknown History mL) subcutaneous pen glipizide 5 mg tablet 5 mg PO DAILY 05/31/20 08/14/20 Unknown History Physical Exam Vital Signs and Narrative: Vital Signs: Last Vital Signs Temp 97.9 F 08/13/20 18:35 Pulse 90 08/13/20 21:08 Resp 18 08/13/20 21:08 BP 141/61 H 08/13/20 21:08 Pulse Ox 97 08/13/20 21:08 Body Mass Index 48.9 Const: General: cooperative and no acute distress Orientation/consciousness: patient oriented x3 HENMT: Other: Swelling in the submandibular region, very tender, warm Head images: 1. Eyes: General: appearance normal, both eyes and all related structures Resp: Effort & Inspection: normal respiratory effort and able to speak in complete sentences Cardio: Rate: regular rate Rhythm: regular rhythm GI: Palpation (GI): Soft to palpation Auscultation: normal bowel sounds Skin: General skin exam: no rashes or lesions noted Neuro: General: patient oriented x3 Cognition (Neuro): normal cognition Extrem: General: Yes normal to inspection and Yes no pedal edema Results Labs CBC and Chem 7: 08/13/20 17:44 08/13/20 17:44 Labs: Laboratory Results - last 24 hr 08/13/20 08/13/20 08/13/20 17:44 17:44 17:44 MCV 76.2 L MCH 21.9 L MCHC 28.8 L RDW 17.5 H Plt Count 280 MPV 10.1 Immature Gran % (Auto) 0.5 H Neut % (Auto) 73.5 H Lymph % (Auto) 15.7 L Dawes % (Auto) 8.0 Eos % (Auto) 1.8 Baso % (Auto) 0.5 Lymph # (Auto) 1.4 Dawes # (Auto) 0.7 Eos # (Auto) 0.2 Baso # (Auto) 0.0 Abs Immat Gran (auto) 0.04 H Absolute Neuts (auto) 6.4 Absolute Nucleated RBC 0.000 Nucleated RBC % (auto) 0.0 PT 18.4 H INR 1.5 H APTT 41.5 H Anion Gap 15 Estim Creat Clear Calc 87.8 Estimated GFR > 60 Random Glucose 169 H Lactic Acid Calcium 8.9 Magnesium 2.0 Troponin I High Sens Coronavirus (PCR) Influenza Type A (PCR) Influenza Type B (PCR) RSV RNA Qual (PCR) 08/13/20 08/13/20 08/13/20 17:44 17:44 17:44 MCV MCH MCHC RDW Plt Count MPV Immature Gran % (Auto) Neut % (Auto) Lymph % (Auto) Dawes % (Auto) Eos % (Auto) Baso % (Auto) Lymph # (Auto) Dawes # (Auto) Eos # (Auto) Baso # (Auto) Abs Immat Gran (auto) Absolute Neuts (auto) Absolute Nucleated RBC Nucleated RBC % (auto) PT INR APTT Anion Gap Estim Creat Clear Calc Estimated GFR Random Glucose Lactic Acid 1.8 Calcium Magnesium Troponin I High Sens 5.9 Coronavirus (PCR) NEGATIVE Influenza Type A (PCR) NEGATIVE Influenza Type B (PCR) NEGATIVE RSV RNA Qual (PCR) NEGATIVE Imaging Radiologist's Impressions: Impressions Soft Tissue Neck CT 08/13/20 17:27 IMPRESSION: Large obstructing calculus within the left submandibular duct with associated acute sialoadenitis. No drainable collection. Assessment and Plan (1) Sialoadenitis of submandibular gland: Status: Acute (2) Submandibular duct obstruction: Status: Acute (3) Submandibular gland inflammation: Status: Acute This is a 65-year-old male with past medical history of COPD, HTN, DM and also history of submandibular duct obstruction among others who presents the hospital with swelling of his submandibular region # submandibular sialoadenitis - due to submandibular duct obstruction - according to [facility] surgical team patient not a surgical candidate, has no discernible fluid collection on CT soft tissue neck - will start him on IV antibiotics to cover Staph aureus as well as anaerobic - follow culture # submandibular duct obstruction - large calculus - will apply warm compress - many follow-up outpatient - given the swelling, monitor for any respiratory distress # diabetes mellitus - hold oral antihyperglycemics, continue isunlin home regimen - low-dose sliding scale insulin - diabetic diet # A.fib - continue amiodarone, underwent multiple cardioversions, unclear if patient on anticoagulants because not mentioned in his med review # COPD - no exacerbation - continue home inhaler DVT prophylaxis: lovenox
[2020-08-14 01:20] VITALS: BP 138/62; PULSE 88; RESP 16; O2SAT 97
--- NOTE | 2020-08-14 02:30 | PC.NURSE ---
PT SITTING UP IN RECLINER CHAIR FOR COMFORT. PT C/O LEFT SIDED JAW PAIN. PT MEDICATED FOR PAIN, WILL CONTINUE TO MONITOR PT.
[2020-08-14 03:15] VITALS: BP 146/70; PULSE 92; RESP 16; O2SAT 98
--- NOTE | 2020-08-14 04:06 | PC.NURSE ---
PT C/O JAW PAIN. PT MEDICATED FOR PAIN PER EMAR.
[2020-08-14] MEDS: Morphine Sulfate 4 MG/ML CARTRIDGE IVPUSH ×2 (04:12→09:11)
--- NOTE | 2020-08-14 05:01 | PC.NURSE ---
pt refusing ice packs for pain and swelling.
[2020-08-14] MEDS: Ampicillin Sodium/Sulbactam Na 3 GM in 0.9 % Sodium Chloride 100 ML IV ×2 (05:05→11:49)
--- NOTE | 2020-08-14 05:10 | PC.NURSE ---
AMPICILLIN UP PER EMAR. PT SITTING UP IN RECLINER CHAIR C/O JAW PAIN. PT ALERT, RESPIRATIONS EASY, N/L. SKIN W/D. WILL CONTINUE TO MONITOR PT.
[2020-08-14 05:40] VITALS: BP 144/72; PULSE 90; RESP 16; O2SAT 97
--- NOTE | 2020-08-14 06:52 | PC.NURSE ---
REPORT TO MINNA SORIANO
[2020-08-14] MEDS: Heparin Sodium,Porcine 5,000 UNIT/ML VIAL 5000 UNIT SUBCUT (08:02)
[2020-08-14 08:59] LABS: Glucose, Whole Blood 235 mg/dL (60-115)
[2020-08-14] MEDS: Insulin Lispro 100 UNIT/ML 3 ML VIAL SUBCUT (09:10)
[2020-08-14] MEDS: 0.9 % Sodium Chloride Flush 3 ML SYRINGE IVFLUSH (11:05)
[2020-08-14 12:00] VITALS: BP 137/66; PULSE 81; RESP 19; TEMP 36.4; O2SAT 96
--- NOTE | 2020-08-14 12:01 | PM.DS ---
DS: Providers Provider Date of Service: 08/14/20 <Meghna Mayberry MD - Last Filed: 08/14/20 14:21> 08/10/21 <Ramiro Butler MD - Last Filed: 08/10/21 15:46> Date of admission: 08/14/20 00:32 <Meghna Mayberry MD - Last Filed: 08/14/20 14:21> Date of discharge: 08/14/20 <Ramiro Butler MD - Last Filed: 08/10/21 15:46> Primary care physician: Jeanna Oleary MD <Meghna Mayberry MD - Last Filed: 08/14/20 14:21> Admitting clinician: Carole Ferguson <Ramiro Butler MD - Last Filed: 08/10/21 15:46> Attending physician on admission: Meghna Mayberry <Ramiro Butler MD - Last Filed: 08/10/21 15:46> Consults: 08/14/20 09:16 Consult to Infectious Diseases Routine Consulting Provider: Muna Davidson Reason for consultation: sialeadnitis 08/14/20 11:38 Consult Respiratory Therapy Routine Reason for consultation: cpap Has provider been notified: Yes <Meghna Mabyerry MD - Last Filed: 08/14/20 14:21> Attending physician on discharge: Meghna Mayberry <Ramiro Butler MD - Last Filed: 08/10/21 15:46> Discharging clinician: Meghna Mayberry <Ramiro Butler MD - Last Filed: 08/10/21 15:46> DS: Diagnosis Discharge Diagnosis (1) Sialoadenitis of submandibular gland: Status: Acute <Meghna Mayberry MD - Last Filed: 08/14/20 14:21> (2) Submandibular duct obstruction: Status: Acute <Meghna Mayberry MD - Last Filed: 08/14/20 14:21> (3) Sialolithiasis of submandibular gland: Status: Acute <Meghna Mayberry MD - Last Filed: 08/14/20 14:21> (4) Airway compromise: Status: Acute <Meghna Mayberry MD - Last Filed: 08/14/20 14:21> DS: Summary Hospital Course Hospital Course: From the admission history and physical by hospitalist Carole Ferguson MD, 08/14/20: This is a 65-year-old male with past medical history of COPD on baseline oxygen, AFib, TAE on CPAP, DM, HTN, HLD, who presents to the hospital with complaints of left-sided facial swelling, difficulty swallowing. Patient reports that his symptoms started on Sunday initial start with swelling in his left sees that has worsened since, associated with difficulty swallowing mostly solids due to the pain and swelling in his throat but has now also do has difficulty swallowing liquids again due to the pain. It the swelling his face is localized to the left lower face/jaw, 04/15 pain, nonradiating. No relieving or exacerbating factors. Patient reports a similar episode in May 2019 due to blockage in his submandibular duct. He otherwise denies any difficulty breathing although reports that he has baseline CO2 and his baseline shortness of breath has not worsened. He has no increased cough unknown increased sputum production, no fever or chills, no abdominal pain nausea or vomiting, no chest pain, no palpitations, no diarrhea constipation, no urinary symptoms and no lower extremity edema. Vitals on arrival hemodynamically stable with no significant abnormality Labs are significant for WBC count of 8.8, hemoglobin of 10.3 which is around his baseline, hematocrit 35.8, PT of 18.4, INR of 1.5, lactic acid of 1.8, negative troponin, COVID-19 negative, Soft tissue neck CT shows large obstructing calculus within the left submandibular duct with associated acute cellular adenitis. No drainable collection. [facility] was initially contacted for transfer but refused the patient as they feel that he does not need any surgical intervention The patient [place] [facility] and treated with IV vancomycin and ampicillin/sulbactam. Upon my assumption of the patient's care, I found him to have marked trismus, drooling, and muffled voice related to severe submandibular space infection due to obstruction from a 1.5cm sialolith that clearly will not resolve without surgical intervention. I was concerned for impending airway compromise, and immediately consulted the ambulatory service representative, Dr Ramiro Butler, and arranged for transfer to a tertiary care center with ENT surgical capacity. The patient was intubated preventively in the [facility] ICU and transferred to the [facility] ICU. <Meghna Mayberry MD - Last Filed: 08/14/20 14:21> Time Spent with Patient Time attestation: Total time spent providing and/or coordinating discharge services: 75 <Meghna Mayberry MD - Last Filed: 08/14/20 14:21> Discharge coordination time: Greater than 30 minutes <Meghna Mayberry MD - Last Filed: 08/14/20 14:21> Physical Exam Vital Signs: Vital Signs: Last Vital Signs Temp 97.9 F 08/13/20 18:35 Pulse 90 08/14/20 05:40 Resp 16 08/14/20 05:40 BP 144/72 H 08/14/20 05:40 Pulse Ox 97 08/14/20 05:40 Body Mass Index 48.9 Gen: in pain HEENT: trismus, swelling of left submandibular gland with markedly tender sialolith, drooling Neck: swelling as above; no stridor noted Lungs: clear to auscultation bilaterally Heart: regular rate and rhythm, no murmurs Abd: soft, obese, non-tender Ext: no edema Skin: warm/well-perfused Neuro: alert and oriented x3, no focal findings Psych: appropriate affect <Meghna Mayberry MD - Last Filed: 08/14/20 14:21> DS: Data Data Completed and Pending Labs on day of discharge: Laboratory Results - last 24 hr 08/13/20 08/13/20 08/13/20 17:44 17:44 17:44 WBC 8.8 RBC 4.70 Hgb 10.3 L Hct 35.8 L MCV 76.2 L MCH 21.9 L MCHC 28.8 L RDW 17.5 H Plt Count 280 MPV 10.1 Immature Gran % (Auto) 0.5 H Neut % (Auto) 73.5 H Lymph % (Auto) 15.7 L Williams % (Auto) 8.0 Eos % (Auto) 1.8 Baso % (Auto) 0.5 Lymph # (Auto) 1.4 Williams # (Auto) 0.7 Eos # (Auto) 0.2 Baso # (Auto) 0.0 Abs Immat Gran (auto) 0.04 H Absolute Neuts (auto) 6.4 Absolute Nucleated RBC 0.000 Nucleated RBC % (auto) 0.0 PT 18.4 H INR 1.5 H APTT 41.5 H Sodium 140 Potassium 4.3 Chloride 99 Carbon Dioxide 30 H Anion Gap 15 BUN 24 H Creatinine 1.02 Estim Creat Clear Calc 87.8 Estimated GFR > 60 POC Glucose Random Glucose 169 H Lactic Acid Calcium 8.9 Magnesium 2.0 Troponin I High Sens Coronavirus (PCR) Influenza Type A (PCR) Influenza Type B (PCR) RSV RNA Qual (PCR) 08/13/20 08/13/20 08/13/20 17:44 17:44 17:44 WBC RBC Hgb Hct MCV MCH MCHC RDW Plt Count MPV Immature Gran % (Auto) Neut % (Auto) Lymph % (Auto) Williams % (Auto) Eos % (Auto) Baso % (Auto) Lymph # (Auto) Williams # (Auto) Eos # (Auto) Baso # (Auto) Abs Immat Gran (auto) Absolute Neuts (auto) Absolute Nucleated RBC Nucleated RBC % (auto) PT INR APTT Sodium Potassium Chloride Carbon Dioxide Anion Gap BUN Creatinine Estim Creat Clear Calc Estimated GFR POC Glucose Random Glucose Lactic Acid 1.8 Calcium Magnesium Troponin I High Sens 5.9 Coronavirus (PCR) NEGATIVE Influenza Type A (PCR) NEGATIVE Influenza Type B (PCR) NEGATIVE RSV RNA Qual (PCR) NEGATIVE 08/14/20 08:55 WBC RBC Hgb Hct MCV MCH MCHC RDW Plt Count MPV Immature Gran % (Auto) Neut % (Auto) Lymph % (Auto) Williams % (Auto) Eos % (Auto) Baso % (Auto) Lymph # (Auto) Williams # (Auto) Eos # (Auto) Baso # (Auto) Abs Immat Gran (auto) Absolute Neuts (auto) Absolute Nucleated RBC Nucleated RBC % (auto) PT INR APTT Sodium Potassium Chloride Carbon Dioxide Anion Gap BUN Creatinine Estim Creat Clear Calc Estimated GFR POC Glucose 235 H Random Glucose Lactic Acid Calcium Magnesium Troponin I High Sens Coronavirus (PCR) Influenza Type A (PCR) Influenza Type B (PCR) RSV RNA Qual (PCR) Soft Tissue Neck CT 08/13/20 17:27 IMPRESSION: Large obstructing calculus within the left submandibular duct with associated acute sialoadenitis. No drainable collection. <Meghna Mayberry MD - Last Filed: 08/14/20 14:21> Discharge Plan Discharge Anticipated Discharge Date/Time: 08/14/20 14:43 <Meghna Mayberry MD - Last Filed: 08/14/20 14:21> [facility] <Meghna Mayberry MD - Last Filed: 08/14/20 14:21> Discharge Diagnosis: Sialadenitis Airway compromise <Meghna Mayberry MD - Last Filed: 08/14/20 14:21> Sialadenitis Airway compromise <Ramiro Butler MD - Last Filed: 08/10/21 15:46> Referrals: Jeanna Oleary MD [Primary Care Provider] - <Meghna Mayberry MD - Last Filed: 08/14/20 14:21> Discharge Medications: Continued amlodipine 2.5 mg tablet 1 tab PO DAILY 0RF hydrochlorothiazide 12.5 mg capsule 1 cap PO DAILY 0RF hydroxyzine HCl 25 mg tablet 1 tab PO BID 0RF furosemide 20 mg tablet 1 tab PO DAILY 0RF Xarelto 20 mg tablet 1 tab PO QPM 0RF doxepin 25 mg capsule 1 - 2 cap PO BEDTIME 0RF insulin aspart U-100 [Novolog Flexpen U-100 Insulin] 100 unit/mL (3 mL) insulin pen 40 unit subcut TIDAC 0RF Rx Instructions: SLIDING SCALE, PT USUALLY TAKES 40 TIDAC Spiriva with HandiHaler 18 mcg capsule, w/inhalation device 1 cap inhalation DAILY 0RF metformin 1,000 mg tablet 1,000 mg PO BID 0RF nystatin 100,000 unit/gram powder 100,000 unit topical BID 0RF (DME) insulin syringe-needle U-100 0.3 mL 31 gauge x 5/16 syringe See Rx Instructions ea .ROUTE QID Qty: 10 0RF Rx Instructions: As directed (DME) pen needle, diabetic 32 gauge x 5/32 needle See Rx Instructions ea .ROUTE .MEDSUPPLY Qty: 50 0RF Rx Instructions: As directed Tresiba FlexTouch U-100 100 unit/mL (3 mL) insulin pen 76 unit subcut BEDTIME 0RF glipizide 5 mg tablet 20 mg PO DAILY@1800 0RF fluticasone propion-salmeterol [Advair Diskus] 250-50 mcg/dose blister with device 1 inh inhalation BID 0RF amiodarone 200 mg tablet 200 mg PO DAILY 0RF (DME) blood sugar diagnostic Strip See Rx Instructions ea Not Applicable .MEDSUPPLY Qty: 10 0RF Rx Instructions: As directed triamcinolone acetonide 0.1 % cream 0.1 applic topical BID 0RF rosuvastatin 40 mg tablet 40 mg PO DAILY 0RF gabapentin 600 mg tablet 600 mg PO TID 0RF cholecalciferol (vitamin D3) 25 mcg (1,000 unit) tablet 25 mcg PO DAILY 0RF omeprazole 40 mg capsule,delayed release(DR/EC) 40 mg PO BID 0RF albuterol sulfate 90 mcg/actuation HFA aerosol inhaler 2 puff PO Q4H PRN (Reason: Wheezing) 0RF No Action fexofenadine 180 mg tablet 180 mg PO DAILY 0RF fluticasone propion-salmeterol [Advair Diskus] 250-50 mcg/dose blister with device 1 inh inhalation BID 0RF <Meghna Mayberry MD - Last Filed: 08/14/20 14:21> Discharge Orders: Discharge Order (Routine); Ordered 08/14/20 Ordered By: Meghna Mayberry <Meghna Mayberry MD - Last Filed: 08/14/20 14:21> Diet: other <Meghna Mayberry MD - Last Filed: 08/14/20 14:21> other <Ramiro Butler MD - Last Filed: 08/10/21 15:46> Activity on Discharge: As tolerated <Meghna Mayberry MD - Last Filed: 08/14/20 14:21> As tolerated <Ramiro Butler MD - Last Filed: 08/10/21 15:46> Stand Alone Forms: Patient Portal Discharge page <Meghna Mayberry MD - Last Filed: 08/14/20 14:21> Care Plan Goals: resolution of inflammation of submandibular gland <Meghna Mayberry MD - Last Filed: 08/14/20 14:21> Health Concerns: submandibular sialadenitis with 1.5 cm sialolith threat to pateint's airway <Meghna Mayberry MD - Last Filed: 08/14/20 14:21> Plan of Treatment: transfer to [facility] ICU for definitive ENT consultation/intervention <Meghna Mayberry MD - Last Filed: 08/14/20 14:21> Assessment: submandibular sialadenitis with 1.5 cm sialolith <Meghna Mayberry MD - Last Filed: 08/14/20 14:21> Discharge Date/Time: 08/14/20 14:09 <Meghna Mayberry MD - Last Filed: 08/14/20 14:21>
[2020-08-14] MEDS: oxyCODONE HCl Immed Release 5 MG TABLET PO (12:26)
--- NOTE | 2020-08-14 13:00 | MHC.CM.PN ---
PT BEING TRANSFERRED TO [facility].
[2020-08-14] MEDS: Lidocaine HCl 2 % MPF 5 ML VIAL 1 ML SUBCUT (13:31)
[2020-08-14] MEDS: propofoL 200 MG/20 ML VIAL 140 MG IVPUSH (13:34)
[2020-08-14] MEDS: propofoL 1,000 MG/100 ML VIAL 15.51 MG IVCONT (13:35)
--- NOTE | 2020-08-14 13:46 | PC.NURSE ---
PLANNED INTUBATION FOR STAT TRANSFER TO [facility]: PROPOFOL 140 MCG IVP (TOTAL) LINDOCAINE 1 ML GIVEN BY MD TO BACK OF THROAT PROPOFOL GTT STARTED AT 20 MCG/KG/MIN AND TITRATED TO MAX OF 50 MCG/KG/MIN VERSED 4MG IVP ETT 7.0/24 AT THE LIP AC 16 TV 500 PEEP 5 FI02 100%, FI02 DECREASED TO 30% SHORTLY AFTER INTUBATION. RESTRAINTS APPLIED FOR SAFETY, SENT PT WITH RESTRAINTS WITH EMS. PRE-INTUBATION VS: HR:82 BP:143/54 93% ON 3L. POST-INTUBATION: HR 96 BP: 154/86 96% ON 30%. [facility] BEDSIDE FOR REPORT AND TRANSFER, BELONGINGS SENT WITH EMS. [facility] RN (ELIZABETH [phone]) UPDATED ON VENT SETTINGS AND MEDICATION GIVEN. PTS (MIKAL [phone]) CALLED AND UPDATED BY THIS RN. OFF UNIT AND IN ROUTE TO [facility] AT [phone].
[2020-08-14] MEDS: Midazolam HCl/PF 2 MG/2 ML VIAL 4 MG IVPUSH (13:48)
--- NOTE | 2020-08-14 13:54 | W.PM.CCHP ---
Procedures Intubation Intubation Comments: Elective intubation was performed as explain to the patient most especially for enough for airway protection and safety in the transport to a tertiary institution For any ENT service he is an obese male with a BMI in the high 30s and obstructive sleep apnea at baseline who developed submandibular swelling apparently from submandibular adenitis been and starting to get a hoarse gravelly voice but not true stridor just yet but he is having difficulty in addition of some with swallowing so utilizing glide scope guidance and topical 2% lidocaine just 20 mg a 7. Endotracheal tube passed between the vocal cords with excellent visualization with good bilateral breath sounds and excellent end-tidal CO2 response secured at 24 cm at the lip in and he was sedated with IV propofol 140 mg in total and then placed on a 20 micrograms/kilogram drip and then was given a stat dose of 4 mg of IV Versed because of some breakthrough agitation All easily and without complication Consent for Procedure: Elective - informed consent obtained Time out performed: Yes Sedative: versed Laryngoscope: fiber optic video scope ET tube size: 7 ET tube uncuffed: No Tube secured location: lips Tube placement confirmation: visualized tube passing through cords, equal breath sounds bilaterally, no breath sounds over epigastrium and confirmation by capnometry Patient tolerated procedure: well and no complications Intubation complications: none
== END 2020-08-14 14:09 | disposition short-term general hospital (02) | DRG 156 ==
LOC: HO.ED 08-14 00:06 → HO.EDOVER 08-14 00:43 → HO.IMC 08-14 03:33 → HO.ICU 08-14 12:31
PROVIDERS: Nurse Practitioner Family; Admitting Provider Internal Medicine; Emergency Provider Internal Medicine; PCP Internal Medicine; Visit Provider Family Medicine
DX: K11.5 Sialolithiasis (principal); K11.20 Sialoadenitis, unspecified; I48.91 Unspecified atrial fibrillation; J44.9 Chronic obstructive pulmonary disease, unspecified; F17.210 Nicotine dependence, cigarettes, uncomplicated; Z71.6 Tobacco abuse counseling; Z20.822 Contact with and (suspected) exposure to COVID-19; Z99.81 Dependence on supplemental oxygen; Z88.5 Allergy status to narcotic agent; Z79.4 Long term (current) use of insulin; Z79.52 Long term (current) use of systemic steroids; Z79.01 Long term (current) use of anticoagulants; Z79.899 Other long term (current) drug therapy
CPT/HCPCS: 0241U; 36415; 70491; 80048; 82947; 83605; 83735; 84484; 85025; 85610; 85730; 87040; 93005; 96365; 96375; 99285; 99291; J0295; J1100; J1650; J2250; J2270; J2405; J3370; Q9967

== ENCOUNTER → 2020-09-14 08:46 | Outpatient (BNVA) | payer MEDICARE, SELFPAY | PROVIDERS: PCP Internal Medicine; Referring Provider Internal Medicine; Visit Provider Internal Medicine Gastroenterology | DX: Z87.19 Personal history of other diseases of the digestive system (principal) | CPT/HCPCS: 99212 ==

== ENCOUNTER → 2020-09-28 09:16 | Outpatient (BNVA) | payer MEDICARE, SELFPAY | PROVIDERS: PCP Internal Medicine; Visit Provider Internal Medicine | DX: G47.33 Obstructive sleep apnea (adult) (pediatric) (principal); J44.9 Chronic obstructive pulmonary disease, unspecified; J96.91 Respiratory failure, unspecified with hypoxia; J96.92 Respiratory failure, unspecified with hypercapnia; E66.01 Morbid (severe) obesity due to excess calories | CPT/HCPCS: 99212 ==

== ENCOUNTER 2020-09-29 09:26 | Outpatient (REF) | payer MEDICARE, SELFPAY ==
--- NOTE | ~2020-09-29 | CT_ITS ---
EXAMINATION: CT ABDOMEN AND PELVIS WITH CONTRAST CLINICAL INFORMATION: Stomach and duodenal polyps COMPARISON: Previous abdominal ultrasound most recent December [address] of the abdomen and pelvis June 2015 TECHNIQUE: Multidetector volumetric images were obtained from the superior aspect of the liver through the pubic symphysis following administration 85 mL of Omnipaque 350 intravenous contrast. Sagittal and coronal reformatted images were obtained on the technologist's workstation. Oral contrast: Yes This CT examination was performed using dose optimization techniques as appropriate, variously including the following: *Automated exposure control *Adjustment of mA and/or kV according to patient size (this includes techniques or standardized protocols for targeted exams where dose is matched to indication/reason for exam; i.e. extremities or head) *Use of iterative reconstruction technique DLP: 111 mGy-cm FINDINGS: LUNG BASES: The visualized lung bases are unremarkable. LIVER, GALLBLADDER, AND BILIARY TREE: The liver is enlarged and low in attenuation suggestive of fatty infiltration. The gallbladder has been removed. There is no biliary duct dilatation. PANCREAS: Unremarkable. SPLEEN: Unremarkable. ADRENAL GLANDS: Unremarkable. KIDNEYS AND URETERS: The kidneys are normal in size, shape, and attenuation. No hydronephrosis, hydroureter, or calculi seen. No perinephric stranding. BLADDER: Unremarkable. GASTROINTESTINAL TRACT: The small and large bowel are unremarkable. The appendix is not seen and may have been removed. Stomach is unremarkable. ABDOMINAL WALL: Bilateral inguinal hernias containing fat, right greater than left and small umbilical hernia containing fat. LYMPH NODES: Normal. VASCULAR: There is evidence of atherosclerotic disease. PELVIC VISCERA: The prostate gland is not imaged. thoracentesis that is partially visualized. OSSEOUS STRUCTURES: Unremarkable. CT/CT abdomen pelvis w con IMPRESSION: Enlarged fatty liver.
[2020-09-29 10:18] LABS: Blood Urea Nitrogen 20 mg/dL (9-16); Estimated Glomerular Filt Rate > 60
[2020-09-29] MEDS: iohexoL 350 MG/ML 100 ML INFUS..BTL IV (12:28)
[2020-09-29] MEDS: Barium Sulfate Oral (Mocha) 450 ML ORAL.SUSP 900 ML PO (12:29)
== END 2020-09-29 09:27 | disposition home or self-care (01) ==
LOC: HO.CT 09:26
PROVIDERS: PCP Internal Medicine; Visit Provider Internal Medicine Gastroenterology
DX: K31.7 Polyp of stomach and duodenum (principal)
CPT/HCPCS: 36415; 74177; 82565; 84520; Q9967

== ENCOUNTER → 2020-10-27 10:23 | Outpatient (BNVA) | payer MEDICARE, SELFPAY | PROVIDERS: PCP Internal Medicine; Referring Provider Internal Medicine Gastroenterology; Visit Provider Surgery ==

== ENCOUNTER 2020-11-04 07:12 | Day surgery (SDC) | payer MEDICARE, SELFPAY ==
[2020-10-29 12:14] VITALS: BMI 47.0
--- NOTE | 2020-11-01 13:57 | P.CONAN_ITS ---
Documented by User: Fatmata Gan 11/01/20 15:20 HPI - Anesthesia Eval Consult details Narrative: 65yo M for Upper Endoscopy Pt with recurrent left sialoadenitis and sialolithiasis (left submandibular stone) requiring intubation and transfer to [facility] 08/2020. Tx with antibiotics, extubated, and d/c. Pt spit out a 1.5cm stone at home. (Had a similar experience once before this and had stone removed by oral surgeon.) Is scheduled to have submandibular gland excision 11/11/20. Xarelto for afib Cont O2 at 3 L, chronic hypoventilation syndrome. s/p EGD with MAC 07/2020 (required repeat EGD post op d/t pale and had c/o nausea and epigastric discomfort, BP was depressed at 90 systolic. Abdomen was soft with mild tenderness in epigastrium. EKG was normal. Concern d/t multiple polyps, but repeat EGD showed stable clots in the sites of the polypectomies without any acute bleeding) Case reviewed with Dr. Thanh KEENAN Active Problems Active Problems: All Active Problems (Updated 10/29/20 @ 12:23 by Cathy Ferrara) Varicose veins of right lower extremity with inflammation (Acute) Hyperplastic polyps of stomach (Acute) Duodenal ulcer (Acute) Sialoadenitis of submandibular gland (Acute) Submandibular duct obstruction (Acute) Submandibular gland inflammation (Acute) Airway compromise (Acute) Inguinal hernia (Acute) Morbid obesity (Acute) Sialolithiasis of submandibular gland (Acute) Respiratory failure with hypoxia and hypercapnia (Acute) COPD (chronic obstructive pulmonary disease) (Acute) TAE (obstructive sleep apnea) (Acute) Obesity (BMI 30-39.9) (Acute) Past Medical History Medical History Asthma Atrial fibrillation Cervical disc herniation COPD (chronic obstructive pulmonary disease) COVID-19 vaccine series completed Diabetes Gynecomastia History of cardioversion Hyperlipidemia Hypertension Hypogonadism Morbid obesity Obesity (BMI 30-39.9) TAE (obstructive sleep apnea) Respiratory failure with hypoxia and hypercapnia Sialolithiasis of submandibular gland Family History Family History Father No problems noted. Mother No problems noted. Surgical History Surgical History H/O arthroscopic knee surgery H/O colonoscopy H/O knee surgery H/O prior ablation treatment (04/09/20) H/O umbilical hernia repair H/O vasectomy History of cholecystectomy History of esophagogastroduodenoscopy (EGD) History of penile implant Hx of appendectomy Hx of neck surgery Hx of shoulder surgery Social History Social History Household Members: Spouse Housing: House Are you a primary clinical care coordinator to a significant other at home: No Do you presently have visiting nurse or other home services: No Alcohol intake: current Alcohol intake frequency: a few times a month Alcohol type: beer Patient Tobacco Use Status: Former Tobacco user Quit Date: 12/2019 Tobacco use type: Cigarette Cigarette Packs Per Day: 2.5 Cigarettes Per Day: 50.0 Years Smoked: 40 Use of substances other than those prescribed or required for medical reasons: No Have you been hit, kicked, punched, or otherwise hurt by someone within the past year? If so, by whom?: No Are you DNR?: No Advance Directives: No Advance Directives Information Provided: No Advance Directives on File: No Recently lost weight without trying: No Eating poorly because of decreased appetite: No Nutrition Risks: No Nutritional Risk Meds Allergies Allergy/AdvReac Type Severity Reaction Status Date / Time oxycodone [OXYCODONE] AdvReac Intermediate HALLUCINATIONS, Verified 11/04/20 07:31 DIZZINESS simvastatin AdvReac Intermediate myalgias Verified 11/04/20 07:31 elevated CPK Home Medications Medication Instructions Recorded Confirmed Last Taken Type albuterol sulfate 90 mcg/actuation 2 puff PO Q4H PRN 02/02/20 10/29/20 Unknown History aerosol inhaler amiodarone 200 mg tablet 200 mg PO DAILY 02/02/20 10/29/20 11/04/20 05:00 History blood sugar diagnostic #10 ea 02/02/20 09/15/20 Unknown History cholecalciferol (vitamin D3) 25 25 mcg PO DAILY 02/02/20 10/29/20 Unknown History mcg (1,000 unit) tablet gabapentin 600 mg tablet 600 mg PO TID 02/02/20 10/29/20 11/04/20 05:00 History omeprazole 40 mg capsule,delayed 40 mg PO BID 02/02/20 10/29/20 11/04/20 05:00 History release rosuvastatin 40 mg tablet 40 mg PO DAILY 02/02/20 10/29/20 Unknown History triamcinolone acetonide 0.1 % 0.1 applic TOPICAL BID 02/02/20 10/29/20 Unknown History topical cream fluticasone 250 mcg-salmeterol 50 1 inh INHALATION BID 02/24/20 10/29/20 11/04/20 05:00 History mcg/dose blistr powdr for inhalation insulin syringe-needle U-100 0.3 #10 ea 03/15/20 09/15/20 Unknown History mL 31 gauge x 09/19 metformin 1,000 mg tablet 1,000 mg PO BID 03/15/20 10/29/20 Unknown History nystatin 100,000 unit/gram topical 100,000 unit TOPICAL BID 03/15/20 10/29/20 Unknown History powder pen needle, diabetic 32 gauge x #50 ea 03/15/20 09/15/20 Unknown History insulin degludec 100 unit/mL (3 76 unit SUBCUT BEDTIME 05/14/20 10/29/20 Unknown History mL) subcutaneous pen glipizide 5 mg tablet 20 mg PO DAILY@1800 05/31/20 10/29/20 Unknown History Spiriva with HandiHaler 1 cap INHALATION DAILY 08/14/20 10/29/20 Unknown History Xarelto 1 tab PO QPM 08/14/20 10/29/20 11/01/20 08:00 History amlodipine 1 tab PO DAILY 08/14/20 10/29/20 11/04/20 05:00 History doxepin 1 - 2 cap PO BEDTIME 08/14/20 10/29/20 Unknown History furosemide 1 tab PO DAILY 08/14/20 10/29/20 Unknown History hydrochlorothiazide 1 cap PO DAILY 08/14/20 10/29/20 Unknown History hydroxyzine HCl 1 tab PO BID 08/14/20 10/29/20 Unknown History insulin aspart U-100 [Novolog 40 unit SUBCUT TIDAC 08/14/20 10/29/20 Unknown History Flexpen U-100 Insulin] Exam Exam Date and Time: November 01, 2020 1357 Height,Weight and Vital Signs: Height 5 ft 7 in Weight 136.078 kg Pertinent Lab Results Pertinent Lab Results: Laboratory Tests 08/13/20 08/13/20 09/29/20 17:44 17:44 09:40 WBC 8.8 Hgb 10.3 L Hct 35.8 L Plt Count 280 Sodium 140 Potassium 4.3 Chloride 99 Carbon Dioxide 30 H BUN 20 H Creatinine 0.94 Narrative Narrative: EKG 08/2020 Vent. Rate : 084 BPM Atrial Rate : 084 BPM P-R Int : 214 ms QRS Dur : 096 ms QT Int : 406 ms P-R-T Axes : 048 000 033 degrees QTc Int : 479 ms Sinus rhythm with 1st degree A-V block Otherwise normal ECG When compared with ECG of 14-JUL-2020 11:42, No significant change was found Documented by User: Michael Christianson MD 11/04/20 07:47 [facility] Past Medical History Medical History Asthma Atrial fibrillation Cervical disc herniation COPD (chronic obstructive pulmonary disease) COVID-19 vaccine series completed Diabetes Gynecomastia History of cardioversion Hyperlipidemia Hypertension Hypogonadism Morbid obesity Obesity (BMI 30-39.9) TAE (obstructive sleep apnea) Respiratory failure with hypoxia and hypercapnia Sialolithiasis of submandibular gland Family History Family History Father No problems noted. Mother No problems noted. Surgical History Surgical History H/O arthroscopic knee surgery H/O colonoscopy H/O knee surgery H/O prior ablation treatment (04/09/20) H/O umbilical hernia repair H/O vasectomy History of cholecystectomy History of esophagogastroduodenoscopy (EGD) History of penile implant Hx of appendectomy Hx of neck surgery Hx of shoulder surgery Social History Social History Household Members: Spouse Housing: House Are you a primary clinical care coordinator to a significant other at home: No Do you presently have visiting nurse or other home services: No Alcohol intake: current Alcohol intake frequency: a few times a month Alcohol type: beer Patient Tobacco Use Status: Former Tobacco user Quit Date: 12/2019 Tobacco use type: Cigarette Cigarette Packs Per Day: 2.5 Cigarettes Per Day: 50.0 Years Smoked: 40 Use of substances other than those prescribed or required for medical reasons: No Have you been hit, kicked, punched, or otherwise hurt by someone within the past year? If so, by whom?: No Are you DNR?: No Advance Directives: No Advance Directives Information Provided: No Advance Directives on File: No Recently lost weight without trying: No Eating poorly because of decreased appetite: No Nutrition Risks: No Nutritional Risk Meds Allergies Allergy/AdvReac Type Severity Reaction Status Date / Time oxycodone [OXYCODONE] AdvReac Intermediate HALLUCINATIONS, Verified 11/04/20 07:31 DIZZINESS simvastatin AdvReac Intermediate myalgias Verified 11/04/20 07:31 elevated CPK Home Medications Medication Instructions Recorded Confirmed Last Taken Type albuterol sulfate 90 mcg/actuation 2 puff PO Q4H PRN 02/02/20 10/29/20 Unknown History aerosol inhaler amiodarone 200 mg tablet 200 mg PO DAILY 02/02/20 10/29/20 11/04/20 05:00 History blood sugar diagnostic #10 ea 02/02/20 09/15/20 Unknown History cholecalciferol (vitamin D3) 25 25 mcg PO DAILY 02/02/20 10/29/20 Unknown History mcg (1,000 unit) tablet gabapentin 600 mg tablet 600 mg PO TID 02/02/20 10/29/20 11/04/20 05:00 History omeprazole 40 mg capsule,delayed 40 mg PO BID 02/02/20 10/29/20 11/04/20 05:00 History release rosuvastatin 40 mg tablet 40 mg PO DAILY 02/02/20 10/29/20 Unknown History triamcinolone acetonide 0.1 % 0.1 applic TOPICAL BID 02/02/20 10/29/20 Unknown History topical cream fluticasone 250 mcg-salmeterol 50 1 inh INHALATION BID 02/24/20 10/29/20 11/04/20 05:00 History mcg/dose blistr powdr for inhalation insulin syringe-needle U-100 0.3 #10 ea 03/15/20 09/15/20 Unknown History mL 31 gauge x 09/19 metformin 1,000 mg tablet 1,000 mg PO BID 03/15/20 10/29/20 Unknown History nystatin 100,000 unit/gram topical 100,000 unit TOPICAL BID 03/15/20 10/29/20 Unknown History powder pen needle, diabetic 32 gauge x #50 ea 03/15/20 09/15/20 Unknown History insulin degludec 100 unit/mL (3 76 unit SUBCUT BEDTIME 05/14/20 10/29/20 Unknown History mL) subcutaneous pen glipizide 5 mg tablet 20 mg PO DAILY@1800 05/31/20 10/29/20 Unknown History Spiriva with HandiHaler 1 cap INHALATION DAILY 08/14/20 10/29/20 Unknown History Xarelto 1 tab PO QPM 08/14/20 10/29/20 11/01/20 08:00 History amlodipine 1 tab PO DAILY 08/14/20 10/29/20 11/04/20 05:00 History doxepin 1 - 2 cap PO BEDTIME 08/14/20 10/29/20 Unknown History furosemide 1 tab PO DAILY 08/14/20 10/29/20 Unknown History hydrochlorothiazide 1 cap PO DAILY 08/14/20 10/29/20 Unknown History hydroxyzine HCl 1 tab PO BID 08/14/20 10/29/20 Unknown History insulin aspart U-100 [Novolog 40 unit SUBCUT TIDAC 08/14/20 10/29/20 Unknown History Flexpen U-100 Insulin] Exam Airway Mallampati Class: II TM Dist: >3cm Neck ROM: Full Loose/Missing/Broken Teeth: No (Cemented bridge front incisor) Heart: RRR Lungs: 91% on RA Assessment and Plan Assessment Anesthesia Assessment: Anesthesia Plan Discussed and Chart Reviewed Final Anesthetic Review NPO: Yes ASA Class: III Final Preanesthetic Review: No Changes in Pt Med Stat, Meds/Allgs Chart Reviewed, Consent Obtained/Reviewed and Anes Risks/Benef Reviewed Patient Risk: High Procedure Risk: Low Anesthetic Plan Anesthetic Plan: MAC: Disposition: Standard PACU
[2020-11-04 07:34] VITALS: BP 141/57; PULSE 89; RESP 20; TEMP 36.9; O2SAT 92
[2020-11-04 07:46] LABS: Glucose, Whole Blood 276 mg/dL (60-115)
--- NOTE | 2020-11-04 09:03 | MHC.SHP ---
Pre-Procedural Eval Section A Date of Service: 11/04/20 Section B Chief Complaint: Gastric Polyps Relevant Family History (Specify if Yes): No Relevant Social History: None Present Medications: see Short Stay Collaborative assessment Medical History: Significant History (Asthma Atrial fibrillation Cervical disc herniation COPD (chronic obstructive pulmonary disease) COVID-19 vaccine series completed Diabetes Gynecomastia History of cardioversion Hyperlipidemia Hypertension Hypogonadism Morbid obesity Obesity (BMI 30-39.9) TAE (obstructive sleep apnea) Respiratory fa) History of Previous Operations: Relevant previous surgery/procedure and date(s) (H/O arthroscopic knee surgery H/O colonoscopy H/O knee surgery H/O prior ablation treatment (04/09/20) H/O umbilical hernia repair H/O vasectomy History of cholecystectomy History of esophagogastroduodenoscopy (EGD) History of penile implant Hx of appendectomy Hx of neck surgery Hx of shoulder surge) Allergies: Allergies Allergy/AdvReac Type Severity Reaction Status Date / Time oxycodone [OXYCODONE] AdvReac Intermediate HALLUCINATIONS, Verified 11/04/20 07:31 DIZZINESS simvastatin AdvReac Intermediate myalgias Verified 11/04/20 07:31 elevated CPK Review of Systems Sugical H&P ROS: Negative: Constitution, Cardiovascular, Respiratory, Neurological, Psychiatric, Hem-Onc, Allergic/Immunologic, Gastrointestinal, Genitourinary, Musculoskeletal, Integumentary, Endocrine and Eyes/Ears/Nose/Throat Exam Surgical H&P Exam: Normal: HEENT, Normal: Heart, Normal: Lungs, Normal: Extremities, Normal: Abdomen, Normal: Skin and Normal: Neurological Exam Comment: obese Plan Diagnosis/Plan: Unchanged I have reviewed the history and physical and performed a pertinent physical examination on my patient. No changes have occurred unless specified.
--- NOTE | 2020-11-04 09:06 | P.BOP_ITS ---
Brief Operative Note Date of Service: 11/04/20 Pre-op diagnosis: gastric polyps Post-op diagnosis: same Procedure: see op note Surgeon: Linda Shah MD Anesthesia: MAC Was an [employer] used for this Procedure?: No Estimated blood loss (mL): 0 Condition: stable Disposition: PACU
--- NOTE | 2020-11-04 09:07 | P.OP_ITS ---
Operative Note Operative Note Date of Service: 11/04/20 Narrative: Procedure Description: EGD FLEXIBLE TRANSORAL UPPER GASTROINTESTINAL ENDOSCOPY UPPER ENDOSCOPY Consent: Indications for the procedure and potential complications of bleeding, perforation, reaction to medications and missed diagnosis were discussed with the patient and informed consent was obtained. Instrument: Olympus GIF H 190 J mid size upper endoscope Monitoring: Vital signs and clinical assessment, continuous EKG monitoring, Pulse oximetry, Carbon Dioxide monitoring and blood pressure monitoring were done throughout the procedure. Procedure: The patient was placed in the left lateral decubitis position and pre-procedure medications were administered and a bite block was placed. The endoscope was inserted into the mouth and advanced under direct vision to the third part of duodenum. A careful inspection was made as the upper endoscope was withdrawn including a retroflexed examination of the proximal stomach; Findings and interventions are described below. Findings: Larynx:normal Esophagus: GE junction at 42 cm, diaphragm hiatus at 42 cm, no varices or esophagitis, possible short segemnt barretts, bx taken of GEJ Stomach: Patchy gastric erythema with nodularity, bx taken from antrum, angularis, greater curve, smaller curve and fundus. There was 6-7 mm sessile polyp removed with cold snare. x 2 sessile polyps in body of stomach 8-9 mm rem teresa with cold snare. 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
[2020-11-04 09:36] VITALS: BP 133/62; PULSE 87; RESP 16; TEMP 36.4; O2SAT 96
[2020-11-04 09:51] VITALS: BP 136/82; PULSE 82; RESP 16; TEMP 36.4; O2SAT 95
== END 2020-11-04 10:45 | disposition home or self-care (01) ==
PROVIDERS: PCP Internal Medicine; Visit Provider Internal Medicine Gastroenterology
PROC: 0DJ08ZZ Inspection of Upper Intestinal Tract, Via Natural or Artificial Opening Endoscopic (ICD-10-PCS; CPT 43235; principal; 2020-11-04 08:30)
DX: K31.7 Polyp of stomach and duodenum (principal); K29.50 Unspecified chronic gastritis without bleeding; G47.33 Obstructive sleep apnea (adult) (pediatric); K44.9 Diaphragmatic hernia without obstruction or gangrene; J44.9 Chronic obstructive pulmonary disease, unspecified; E11.9 Type 2 diabetes mellitus without complications; I10 Essential (primary) hypertension; I48.91 Unspecified atrial fibrillation; E66.9 Obesity, unspecified; Z68.35 Body mass index [BMI] 35.0-35.9, adult; Z79.4 Long term (current) use of insulin; Z79.01 Long term (current) use of anticoagulants; Z79.51 Long term (current) use of inhaled steroids; Z79.899 Other long term (current) drug therapy; Z87.891 Personal history of nicotine dependence
CPT/HCPCS: 43251; 43239; 82947; 88305; 88342

== ENCOUNTER 2020-11-05 12:40 | Outpatient (REF) | payer MEDICARE, SELFPAY ==
[2020-11-05 14:06] LABS: Hemoglobin 9.2 g/dl (14.0-18.0); Mean Corpuscular HGB Conc 27.9 g/dl (31.0-36.0); Mean Corpuscular Hemoglobin 20.5 pg (27.0-33.0); Mean Corpuscular Volume 73.5 fL (80-98); Mean Platelet Volume 10.7 fL (9.4-12.4); Platelet Count 286 X10*3/uL (160-400); Red Blood Count 4.49 X10*6/uL (4.60-5.80); Red Cell Distribution Width 19.3 % (11.0-16.0); White Blood Count 7.7 X10*3/uL (4.8-10.8)
[2020-11-05 14:18] LABS: Alanine Aminotransferase 33 U/L (0-40); Albumin Level 3.9 g/dL (3.5-5.0); Alkaline Phosphatase 91 U/L (39-117); Anion Gap 18 (12-20); Aspartate Amino Transferase 45 U/L (5-37); Bilirubin Total 0.4 mg/dL (0.0-1.0); Blood Urea Nitrogen 25 mg/dL (9-16); Calcium 9.7 mg/dL (8.4-10.2); Carbon Dioxide 28 mmol/L (22-29); Chloride 98 mmol/L (96-108); Estimated Glomerular Filt Rate 59; Glucose Random 213 mg/dL (60-115); Potassium 4.8 mmol/L (3.3-5.1); Sodium 139 mmol/L (135-145); Total Protein 7.7 g/dL (6.5-8.0)
== END 2020-11-05 12:41 | disposition home or self-care (01) ==
LOC: HO.HMGCLDS 12:40
PROVIDERS: PCP Internal Medicine; Visit Provider Internal Medicine
DX: Z01.818 Encounter for other preprocedural examination (principal)
CPT/HCPCS: 36415; 80053; 85027

== ENCOUNTER → 2020-11-16 10:11 | Outpatient (BNVA) | payer MEDICARE, SELFPAY | PROVIDERS: PCP Internal Medicine; Referring Provider Internal Medicine; Visit Provider Surgery | DX: K40.20 Bilateral inguinal hernia, without obstruction or gangrene, not specified as recurrent (principal) | CPT/HCPCS: 99202 ==

== ENCOUNTER 2020-12-02 15:52 | Outpatient (REF) | payer MEDICARE, SELFPAY ==
--- NOTE | ~2020-12-02 | XR_ITS ---
EXAMINATION: XR TIBIA/FIBULA, LEFT XR TIBIA/FIBULA, RIGHT CLINICAL INFORMATION: Lower leg pain. COMPARISON: None TECHNIQUE: AP and lateral views of bilateral lower legs. FINDINGS: Left tibia/fibula: There is diffuse subcutaneous edema. Mild medial tibiofemoral cartilage space loss. No displaced fracture or dislocation. Posterior and plantar calcaneal spurs. Arterial vascular calcifications are present. Right tibia/fibula: There is diffuse subcutaneous edema. Mild to moderate medial tibiofemoral cartilage space loss. No displaced fracture or dislocation. Arterial vascular calcifications are present. XR/XR tibia fibula RT 2V IMPRESSION: Diffuse subcutaneous edema bilateral lower legs.
--- NOTE | ~2020-12-02 | XR_ITS ---
EXAMINATION: XR TIBIA/FIBULA, LEFT XR TIBIA/FIBULA, RIGHT CLINICAL INFORMATION: Lower leg pain. COMPARISON: None TECHNIQUE: AP and lateral views of bilateral lower legs. FINDINGS: Left tibia/fibula: There is diffuse subcutaneous edema. Mild medial tibiofemoral cartilage space loss. No displaced fracture or dislocation. Posterior and plantar calcaneal spurs. Arterial vascular calcifications are present. Right tibia/fibula: There is diffuse subcutaneous edema. Mild to moderate medial tibiofemoral cartilage space loss. No displaced fracture or dislocation. Arterial vascular calcifications are present. XR/XR tibia fibula LT 2V IMPRESSION: Diffuse subcutaneous edema bilateral lower legs.
== END 2020-12-02 15:53 | disposition home or self-care (01) ==
LOC: HO.XRAY 15:52
PROVIDERS: PCP Internal Medicine; Referring Provider Internal Medicine; Visit Provider Emergency Medicine
DX: L97.911 Non-pressure chronic ulcer of unspecified part of right lower leg limited to breakdown of skin (principal); M79.605 Pain in left leg
CPT/HCPCS: 73590

== ENCOUNTER 2020-12-08 08:21 | Outpatient (REF) | payer MEDICARE, SELFPAY ==
[2020-12-08 11:40] LABS: Anion Gap 17 (12-20); Blood Urea Nitrogen 28 mg/dL (9-16); Calcium 9.1 mg/dL (8.4-10.2); Carbon Dioxide 23 mmol/L (22-29); Chloride 101 mmol/L (96-108); Estimated Glomerular Filt Rate > 60; Glucose Random 235 mg/dL (60-115); Potassium 4.7 mmol/L (3.3-5.1); Sodium 136 mmol/L (135-145)
== END 2020-12-08 08:22 | disposition home or self-care (01) ==
LOC: HO.HMGCLDS 08:21
PROVIDERS: PCP Internal Medicine; Visit Provider Internal Medicine
DX: E11.40 Type 2 diabetes mellitus with diabetic neuropathy, unspecified (principal); I87.2 Venous insufficiency (chronic) (peripheral); S81.801A Unspecified open wound, right lower leg, initial encounter; X58.XXXA Exposure to other specified factors, initial encounter; Y93.9 Activity, unspecified; Y92.9 Unspecified place or not applicable; Y99.9 Unspecified external cause status
CPT/HCPCS: 36415; 80048

== ENCOUNTER 2020-12-16 08:54 | Outpatient (RCR) | payer MEDICARE, SELFPAY | END 2020-12-21 15:04 | disposition home or self-care (01) | LOC: HO.WCC 08:54 | PROVIDERS: PCP Internal Medicine; Visit Provider Surgery | DX: I87.2 Venous insufficiency (chronic) (peripheral) (principal); Z87.2 Personal history of diseases of the skin and subcutaneous tissue | CPT/HCPCS: 99213 ==

== ENCOUNTER → 2021-02-01 09:04 | Outpatient (BNVA) | payer MEDICARE, SELFPAY | PROVIDERS: PCP Internal Medicine; Visit Provider Internal Medicine | DX: G47.33 Obstructive sleep apnea (adult) (pediatric) (principal); E66.01 Morbid (severe) obesity due to excess calories; J44.9 Chronic obstructive pulmonary disease, unspecified; J96.91 Respiratory failure, unspecified with hypoxia; J96.92 Respiratory failure, unspecified with hypercapnia | CPT/HCPCS: 99212 ==

== ENCOUNTER 2021-03-10 08:18 | Outpatient (REF) | payer MEDICARE, SELFPAY ==
[2021-03-10 11:46] LABS: Anion Gap 14 (12-20); Blood Urea Nitrogen 27 mg/dL (9-16); Calcium 8.9 mg/dL (8.4-10.2); Carbon Dioxide 29 mmol/L (22-29); Chloride 100 mmol/L (96-108); Estimated Glomerular Filt Rate 55; Potassium 4.7 mmol/L (3.3-5.1); Sodium 138 mmol/L (135-145)
[2021-03-10 12:00] LABS: Creatinine Urine 45.24 mg/dL; Protein/Creatinine Ratio, Ur 0.53 (<0.2); Total Protein Urine Random 24 mg/dL (<12)
== END 2021-03-10 08:19 | disposition home or self-care (01) ==
LOC: HO.HMGCLDS 08:18
PROVIDERS: PCP Internal Medicine; Visit Provider Internal Medicine Hypertension Specialist
DX: I12.9 Hypertensive chronic kidney disease with stage 1 through stage 4 chronic kidney disease, or unspecified chronic kidney disease (principal); N18.9 Chronic kidney disease, unspecified
CPT/HCPCS: 36415; 80051; 82310; 82565; 84156; 84520

== ENCOUNTER 2021-04-05 07:44 | Outpatient (REF) | payer MEDICARE, SELFPAY ==
--- NOTE | ~2021-04-05 | CT_ITS ---
EXAMINATION: CT CHEST SCREENING CLINICAL INFORMATION: Former smoker. COMPARISON: CT chest 12/13/2018. TECHNIQUE: Multidetector volumetric CT imaging of the chest is performed without contrast using low dose technique. Additional 2D coronal and sagittal reformatted images and axial 3D maximum intensity projection (MIP) images are generated on the CT workstation. This CT examination was performed using dose optimization techniques as appropriate, variously including the following: *Automated exposure control *Adjustment of mA and/or kV according to patient size (this includes techniques or standardized protocols for targeted exams where dose is matched to indication/reason for exam; i.e. extremities or head) *Use of iterative reconstruction technique DLP: 122 mGy-cm FINDINGS: LUNGS: The lungs are hyperinflated without acute process. There are punctate bilateral pulmonary nodules. The largest subpleural nodule right lower lobe measures 3 mm on axial image 254/6, likely small lymph node. No additional nodules visualized. MEDIASTINUM: The thyroid lobes are symmetrical and normal. The central trachea and the bronchi are widely patent. The heart size and the great vessels are normal caliber. There are no coronary artery calcifications. No pericardial effusion seen. No abnormal-sized lymph nodes. PLEURA: There is no pleural effusion. No pleural mass or thickening. AXILLA: There are small bilateral axillary lymph nodes. UPPER ABDOMEN: Bilateral glands are unremarkable. Visualized liver, spleen and adrenal glands are unremarkable. The gallbladder is not visualized. OSSEOUS STRUCTURES: No lytic or sclerotic process seen. CT/CT lung screening IMPRESSION: Hyperinflated lungs with punctate bilateral pulmonary nodules. ASSESSMENT: Lung-RADS category 2: Benign RECOMMENDATION: Low-dose annual CT chest.
== END 2021-04-05 07:45 | disposition home or self-care (01) ==
LOC: HO.CT 07:44
PROVIDERS: PCP Internal Medicine; Visit Provider Physician Assistant Medical
DX: Z12.2 Encounter for screening for malignant neoplasm of respiratory organs (principal); Z87.891 Personal history of nicotine dependence
CPT/HCPCS: 71271

== ENCOUNTER → 2021-06-07 09:18 | Outpatient (BNVA) | payer MEDICARE, SELFPAY | PROVIDERS: PCP Internal Medicine; Visit Provider Internal Medicine | DX: G47.33 Obstructive sleep apnea (adult) (pediatric) (principal); J44.9 Chronic obstructive pulmonary disease, unspecified; G47.34 Idiopathic sleep related nonobstructive alveolar hypoventilation; E66.01 Morbid (severe) obesity due to excess calories; Z68.43 Body mass index [BMI] 50.0-59.9, adult | CPT/HCPCS: 99212 ==

== ENCOUNTER 2021-06-28 10:21 | Outpatient (REF) | payer MEDICARE, SELFPAY ==
--- NOTE | ~2021-06-28 | XR_ITS ---
EXAMINATION: XR ANKLE, LEFT CLINICAL INFORMATION: Pain COMPARISON: Left lower leg x-ray most recent November 2020 TECHNIQUE: AP, lateral, and mortise views of the left ankle. FINDINGS: Bone alignment is normal. No fracture or dislocation is seen. There is a small osteophyte at the anterior tibiotalar joint. The ankle mortise is normal. There are small calcaneal spurs. There is soft tissue arterial calcification. XR/XR ankle LT min 3V IMPRESSION: Mild degenerative changes of the anterior tibiotalar joint.
== END 2021-06-28 10:22 | disposition home or self-care (01) ==
LOC: HO.XRAY 10:21
PROVIDERS: PCP Internal Medicine; Visit Provider Internal Medicine
DX: M25.572 Pain in left ankle and joints of left foot (principal)
CPT/HCPCS: 73610

== ENCOUNTER 2021-07-19 13:20 | Outpatient (REF) | payer MEDICARE, SELFPAY ==
--- NOTE | ~2021-07-19 | US_ITS ---
EXAMINATION: ULTRASOUND EXTREMITY NONVASCULAR CLINICAL INFORMATION: Tender subcutaneous induration of right buttock, noticed 2 weeks ago. History of fall on right hip 08/2019. COMPARISON: None. TECHNIQUE: Limited ultrasound imaging along the palpable in the upper right buttock region was performed. FINDINGS: There is a complex firm solid echogenic lesion in the posterior upper buttock region with echogenic shadowing, nontender during the exam. Likely old hematoma with calcification. No fluctuating fluid or mass seen to suspect any abscess. US/US extremity nonvascular IMPRESSION: Likely old hematoma in the right upper posterior buttocks.
== END 2021-07-19 13:21 | disposition home or self-care (01) ==
LOC: HO.US 13:20
PROVIDERS: Visit Provider Internal Medicine
DX: R22.9 Localized swelling, mass and lump, unspecified (principal)
CPT/HCPCS: 76882

== ENCOUNTER 2021-10-07 09:50 | Outpatient (REF) | payer MEDICARE, SELFPAY ==
[2021-10-07 11:28] LABS: MANUAL DIFF FLAG NO
[2021-10-07 11:40] LABS: Basophils Percent Auto 0.5 % (0-2); Eosinophils Absolute Auto 0.2 X10*3/uL (0.0-0.4); Eosinophils Percent Auto 2.6 % (0-4); Hemoglobin 8.6 g/dl (14.0-18.0); Imm Gran Abs Auto 0.04 X10*3/uL (0.00-0.03); Imm Gran Pct Auto 0.7 % (0.0-0.4); Lymphocytes Absolute Auto 1.5 X10*3/uL (1.2-4.9); Mean Corpuscular HGB Conc 26.9 g/dl (31.0-36.0); Mean Corpuscular Hemoglobin 18.9 pg (27.0-33.0); Mean Corpuscular Volume 70.3 fL (80.0-98.0); Mean Platelet Volume 10.7 fL (9.4-12.4); Monocytes Absolute Auto 0.4 X10*3/uL (0.1-1.2); Monocytes Percent Auto 7.6 % (2-11); Neutrophils Absolute Auto 3.6 x10*3/uL (2.0-8.3); Neutrophils Percent Auto 62.6 % (45-73); Platelet Count 267 X10*3/uL (160-400); Red Blood Count 4.55 X10*6/uL (4.60-5.80); Red Cell Distribution Width 20.8 % (11.0-16.0); White Blood Count 5.8 X10*3/uL (4.8-10.8)
[2021-10-07 12:11] LABS: Alanine Aminotransferase 40 U/L (0-40); Albumin Level 3.8 g/dL (3.5-5.0); Alkaline Phosphatase 75 U/L (39-117); Anion Gap 14 (12-20); Aspartate Amino Transferase 55 U/L (5-37); Bilirubin Total 0.4 mg/dL (0.0-1.0); Blood Urea Nitrogen 28 mg/dL (9-16); Calcium 9.8 mg/dL (8.4-10.2); Carbon Dioxide 24 mmol/L (22-29); Chloride 104 mmol/L (96-108); Estimated Glomerular Filt Rate 59; Glucose Random 242 mg/dL (60-115); Potassium 5.1 mmol/L (3.3-5.1); Sodium 137 mmol/L (135-145); Total Protein 7.4 g/dL (6.5-8.0)
[2021-10-07 12:19] LABS: Creatinine Urine 62.75 mg/dL; Protein/Creatinine Ratio, Ur 0.89 (<0.2); Total Protein Urine Random 56 mg/dL (<12)
== END 2021-10-07 09:51 | disposition home or self-care (01) ==
LOC: HO.HMGCLDS 09:50
PROVIDERS: PCP Internal Medicine; Visit Provider Internal Medicine Hypertension Specialist
DX: N18.31 Chronic kidney disease, stage 3a (principal)
CPT/HCPCS: 36415; 80053; 84156; 85025

== ENCOUNTER 2021-11-14 14:32 | Outpatient (REF) | payer MEDICARE, SELFPAY ==
--- NOTE | ~2021-11-14 | XR_ITS ---
EXAMINATION: XR LUMBOSACRAL SPINE CLINICAL INFORMATION: Low back pain COMPARISON: CT abdomen pelvis 09/29/2020 TECHNIQUE: Three views of the lumbosacral spine. Weightbearing. FINDINGS: Lumbar vertebrae have normal height and alignment. No fracture or bone destruction. Mild degenerative lipping at the anterior endplates of the lumbar vertebrae. Mild to moderate facet joint arthrosis most notable at the lower lumbar spine. No spondylolysis or spondylolisthesis. Sacroiliac joints are normal. Compared to prior CAT scan there has been no substantial change. Heavy vascular calcification of aorta without evidence for aneurysm. XR/XR lumbar spine 2-3V IMPRESSION: 1. No acute abnormality. 2. Degenerative spondylosis of lower lumbar spine.
== END 2021-11-14 14:33 | disposition home or self-care (01) ==
LOC: HO.HMGCX 14:32
PROVIDERS: Visit Provider Internal Medicine
DX: M54.50 Low back pain, unspecified (principal)
CPT/HCPCS: 72100

== ENCOUNTER 2022-01-04 10:09 | Outpatient (REF) | payer MEDICARE, SELFPAY ==
--- NOTE | ~2022-01-04 | XR_ITS ---
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 COMPARISON: 12/21/2019 TECHNIQUE: 2 views of the chest were obtained. FINDINGS: The lungs are well expanded. There is no focal consolidation, edema, or effusion. No pneumothorax. The cardiomediastinal silhouette is within normal limits. No acute osseous abnormality. XR/XR chest 2V IMPRESSION: No acute pulmonary finding.
== END 2022-01-04 10:10 | disposition home or self-care (01) ==
LOC: HO.XRAY 10:09
PROVIDERS: PCP Internal Medicine; Visit Provider Internal Medicine
DX: J44.9 Chronic obstructive pulmonary disease, unspecified (principal); J96.91 Respiratory failure, unspecified with hypoxia; J96.92 Respiratory failure, unspecified with hypercapnia; E66.9 Obesity, unspecified; G47.34 Idiopathic sleep related nonobstructive alveolar hypoventilation
CPT/HCPCS: 71046; 99212

== ENCOUNTER 2022-04-17 12:25 | Outpatient (REF) | payer MEDICARE, SELFPAY ==
[2022-04-17 14:27] LABS: Appearance Urine Clear; Color Urine Yellow; Glucose Urine UA Negative (Negative); Leukocyte Esterase Urine Negative (Negative); Nitrite Urine Negative (Negative); PH 6.5 (5.0-9.0); UMIC TRIGGER UA YES; Urine Blood Negative (Negative); Urine Ketones Negative (Negative); Urine Protein 30 (1+) mg/dL (Neg-Trace)
[2022-04-17 14:31] LABS: Bacteria Urine None Seen (None Seen); Hyaline Casts Urine 0-2 /LPF (0-2); RBC Urine 0-2 /HPF (0-2); Squamous Epithelial Cell Urine 0-2 /HPF (0-2); WBC Urine 0-5 /HPF (0-5)
[2022-04-17 14:52] LABS: Creatinine Urine 40.86 mg/dL; Protein/Creatinine Ratio, Ur 0.78 (<0.2); Total Protein Urine Random 32 mg/dL (<12)
== END 2022-04-17 12:26 | disposition home or self-care (01) ==
LOC: HO.HMGCLDS 12:25
PROVIDERS: PCP Internal Medicine; Visit Provider Internal Medicine Hypertension Specialist
DX: I12.9 Hypertensive chronic kidney disease with stage 1 through stage 4 chronic kidney disease, or unspecified chronic kidney disease (principal); N18.9 Chronic kidney disease, unspecified
CPT/HCPCS: 81001; 84156

== ENCOUNTER → 2022-05-09 10:03 | Outpatient (BNVA) | payer MEDICARE, SELFPAY | PROVIDERS: PCP Internal Medicine; Visit Provider Internal Medicine | DX: G47.33 Obstructive sleep apnea (adult) (pediatric) (principal); J44.9 Chronic obstructive pulmonary disease, unspecified; J96.91 Respiratory failure, unspecified with hypoxia; J96.92 Respiratory failure, unspecified with hypercapnia; E66.01 Morbid (severe) obesity due to excess calories; Z68.42 Body mass index [BMI] 45.0-49.9, adult | CPT/HCPCS: 99212 ==

== ENCOUNTER 2022-05-19 08:29 | Outpatient (REF) | payer MEDICARE, SELFPAY ==
--- NOTE | ~2022-05-19 | CT_ITS ---
EXAMINATION: CT CHEST SCREENING CLINICAL INFORMATION: History of nicotine dependence. COMPARISON: None. TECHNIQUE: Multidetector volumetric CT imaging of the chest is performed without contrast using low dose technique. Additional 2D coronal and sagittal reformatted images and axial 3D maximum intensity projection (MIP) images are generated on the CT workstation. This CT examination was performed using dose optimization techniques as appropriate, variously including the following: *Automated exposure control *Adjustment of mA and/or kV according to patient size (this includes techniques or standardized protocols for targeted exams where dose is matched to indication/reason for exam; i.e. extremities or head) *Use of iterative reconstruction technique DLP: 93 mGy-cm FINDINGS: LUNGS: The lungs are well-expanded and clear of acute pneumonic process. There is 1 mm punctate calcifications left upper lobe axial image 151/6. MEDIASTINUM: The thyroid lobes are symmetrical and normal. The central trachea and the bronchi are widely patent. Heart size and the great vessels are normal caliber. No pleural effusion or abnormal lymphadenopathy seen. CORONARY ARTERY CALCIFICATION: None visualized on this study. PLEURA: There is no pleural effusion. No pleural mass or thickening. AXILLA: Punctate scattered lymph nodes are seen in the axilla. UPPER ABDOMEN: Visualized liver, spleen, pancreas and bilateral adrenal glands are unremarkable. OSSEOUS STRUCTURES: No aggressive lytic or sclerotic process seen. There is mild spondylosis dorsal spine. CT/CT lung screening IMPRESSION: Unremarkable CT chest exam. ASSESSMENT: Lung-RADS category 1: Negative. RECOMMENDATION: Low-dose annual CT chest.
== END 2022-05-19 08:30 | disposition home or self-care (01) ==
LOC: HO.CT 08:29
PROVIDERS: Visit Provider Physician Assistant Medical
DX: Z12.2 Encounter for screening for malignant neoplasm of respiratory organs (principal); Z87.891 Personal history of nicotine dependence
CPT/HCPCS: 71271

== ENCOUNTER → 2022-10-31 09:33 | Outpatient (BNVA) | payer MEDICARE, SELFPAY | PROVIDERS: PCP Internal Medicine; Visit Provider Internal Medicine | DX: J44.9 Chronic obstructive pulmonary disease, unspecified (principal); J96.91 Respiratory failure, unspecified with hypoxia; J96.92 Respiratory failure, unspecified with hypercapnia; G47.33 Obstructive sleep apnea (adult) (pediatric); G47.34 Idiopathic sleep related nonobstructive alveolar hypoventilation; E66.01 Morbid (severe) obesity due to excess calories; Z68.41 Body mass index [BMI] 40.0-44.9, adult; Z99.89 Dependence on other enabling machines and devices | CPT/HCPCS: 99212 ==

== ENCOUNTER 2022-12-11 12:29 | Outpatient (REF) | payer MEDICARE, SELFPAY ==
[2022-12-11 16:35] LABS: Hematocrit 28.5 % (42.0-52.0); Hemoglobin 7.5 g/dl (14.0-18.0); Mean Corpuscular HGB Conc 26.3 g/dl (31.0-36.0); Mean Corpuscular Hemoglobin 18.1 pg (27.0-33.0); Mean Corpuscular Volume 68.7 fL (80.0-98.0); Mean Platelet Volume 10.9 fL (9.4-12.4); PLT ABN DIST 1; Platelet Count 260 X10*3/uL (160-400); Red Blood Count 4.15 X10*6/uL (4.60-5.80); Red Cell Distribution Width 21.5 % (11.0-16.0); White Blood Count 6.3 X10*3/uL (4.8-10.8)
[2022-12-11 16:43] LABS: Anion Gap 14 (12-20); Blood Urea Nitrogen 20 mg/dL (9-16); Calcium 9.4 mg/dL (8.4-10.2); Carbon Dioxide 25 mmol/L (22-29); Chloride 105 mmol/L (96-108); Estimated Glomerular Filt Rate > 60; Glucose Random 172 mg/dL (60-115); Iron 21 mcg/dL (45-160); Percent Iron Saturation 5 % (15-50); Potassium 4.9 mmol/L (3.3-5.1); Sodium 139 mmol/L (135-145); Total Iron Binding Capacity 387 mcg/dL (228-428); Unsaturated Iron Binding 366 ug/dL
[2022-12-11 17:05] LABS: Creatinine Urine 56.21 mg/dL; Protein/Creatinine Ratio, Ur 0.73 (<0.2); Total Protein Urine Random 41 mg/dL (<12)
== END 2022-12-11 12:30 | disposition home or self-care (01) ==
LOC: HO.HMGCLDS 12:29
PROVIDERS: PCP Internal Medicine; Visit Provider Internal Medicine Hypertension Specialist
DX: N18.2 Chronic kidney disease, stage 2 (mild) (principal)
CPT/HCPCS: 36415; 80048; 83540; 84156; 85027

== ENCOUNTER 2022-12-23 | Outpatient (REF) | payer MEDICARE, SELFPAY ==
[2022-12-26 07:36] LABS: OBS Int Ctl Valid YES; OBS1 NEGATIVE (NEGATIVE); OBS2 NEGATIVE (NEGATIVE); OBS3 NEGATIVE (NEGATIVE)
[2022-12-26 07:37] LABS: OBS Lot 50612 3L
== END 2022-12-23 00:01 | disposition home or self-care (01) ==
LOC: HO.LNP
PROVIDERS: Visit Provider Internal Medicine Hypertension Specialist
DX: D50.8 Other iron deficiency anemias (principal)
CPT/HCPCS: 82270

== ENCOUNTER 2023-03-13 11:20 | Outpatient (AMB) | payer MEDICARE, SELFPAY ==
[2023-03-13 11:37] VITALS: BP 134/64; PULSE 84; O2SAT 94; BMI 41.1
--- NOTE | 2023-03-13 11:37 | HO.NEPHOV_ITS ---
HPI HPI Comments History of Present Illness Details Charlie is a 67-year-old man with a history of longstanding hypertension obesity and CKD. He had some leg ulcers which have resolved. He continues have each with rash which has not changed after holding the Lasix [facility] Medical History Asthma Atrial fibrillation Cervical disc herniation COPD (chronic obstructive pulmonary disease) COVID-19 vaccine series completed Diabetes Gynecomastia History of cardioversion Hyperlipidemia Hypertension Hypogonadism Morbid obesity Nocturnal hypoxemia Obesity (BMI 30-39.9) TAE (obstructive sleep apnea) Respiratory failure with hypoxia and hypercapnia Sialolithiasis of submandibular gland Surgical History H/O arthroscopic knee surgery H/O colonoscopy H/O knee surgery H/O prior ablation treatment (04/09/20) H/O umbilical hernia repair H/O vasectomy History of cholecystectomy History of esophagogastroduodenoscopy (EGD) History of penile implant Hx of appendectomy Hx of neck surgery Hx of shoulder surgery Family History Father No problems noted. Mother No problems noted. Social History Household Members: Spouse Housing: House Are you a primary neonatal intensive care nurse to a significant other at home: No Do you presently have visiting nurse or other home services: No Alcohol intake: current Alcohol intake frequency: a few times a month Alcohol type: beer Patient Tobacco Use Status: Former Tobacco user Quit Date: 12/2019 Tobacco use type: Cigarette Cigarette Packs Per Day: 2.5 Cigarettes Per Day: 50.0 Years Smoked: 40 Vital Signs 03/13/23 11:37 Height 5 ft 10 in Weight 286 lb 6 oz BMI 41.1 BP 134/64 Blood Pressure Location Lt brachial Position Sitting Pulse 84 Pulse Source Pulse Oximeter Pulse Oximetry (%) 94 Oxygen Delivery Method Room Air Physical Exam Vital Signs: Last Vital Signs Pulse 84 03/13/23 11:37 BP 134/64 03/13/23 11:37 Pulse Ox 94 03/13/23 11:37 Oxygen Delivery Method Room Air 03/13/23 11:37 BMI result Body Mass Index 41.1 Const General: comfortable; No acute distress Orientation/consciousness: patient oriented x3 Eyes General: appearance normal, both eyes and all related structures Visual Botello: normal visual botello by confrontation Neck Neck: Yes supple and Yes no JVD Resp Effort & Inspection: normal respiratory effort and respiratory effort not decreased Auscultation: rhonchi Cardio Palpation: no palpable S3 and no palpable S4 Heart sounds: no rubs GI Inspection: Yes normal to inspection Palpation (GI): Soft to palpation Percussion: Yes normal to percussion Auscultation: normal bowel sounds General: Yes no CVA tenderness Back/Spine/Pelvis Back: no CVA tenderness Skin General skin exam: no petechiae and no purpura Neuro General: patient oriented x3 and no focal motor deficits Extrem General: No clubbing and No edema Results Reviewed Results Reviewed: Labs is reviewed as of March 13; creatinine 0.99 Hemoglobin 9.1 Assessment & Plan Assessment & Plan (1) Anemia: Code(s): D64.9 - Anemia, unspecified Plan: Primarily to iron deficiency. Hemoglobin is improving Continue iron supplementation (2) CKD (chronic kidney disease): Code(s): N18.9 - Chronic kidney disease, unspecified Plan: charlie has stage II CKD. Renal function close to baseline. Continue to avoid nephrotoxic agents and hypotension. Plan Cause for the itching and rash seems unclear. Encouraged him to avoid gluten to see there is any improvement in the rash. Orders: Orders Ferritin 03/13/23 E66.01 - Morbid (severe) obesity due to excess calories, D64.9 - Anemia, unspecified Blood Urea Nitrogen 03/13/23 D64.9 - Anemia, unspecified Creatinine 03/13/23 D64.9 - Anemia, unspecified IRON PROFILE 03/13/23 E66.01 - Morbid (severe) obesity due to excess calories, D64.9 - Anemia, unspecified Complete Blood Count no Diff 03/13/23 E66.01 - Morbid (severe) obesity due to excess calories, D64.9 - Anemia, unspecified Electrolytes 03/13/23 D64.9 - Anemia, unspecified Calcium 03/13/23 D64.9 - Anemia, unspecified Coding Level of Care Code Est Pt Level 3 (47807) Diagnoses Anemia D64.9 CKD (chronic kidney disease) N18.9
== END 2023-03-13 12:06 | disposition home or self-care (01) ==
PROVIDERS: PCP Internal Medicine; Visit Provider Internal Medicine Hypertension Specialist
DX: D64.9 Anemia, unspecified (principal); N18.9 Chronic kidney disease, unspecified
CPT/HCPCS: 99213

== ENCOUNTER → 2023-03-13 11:20 | Outpatient (BNVA) | payer MEDICARE, SELFPAY | PROVIDERS: PCP Internal Medicine; Visit Provider Internal Medicine Hypertension Specialist | DX: I12.9 Hypertensive chronic kidney disease with stage 1 through stage 4 chronic kidney disease, or unspecified chronic kidney disease (principal); N18.2 Chronic kidney disease, stage 2 (mild); E66.01 Morbid (severe) obesity due to excess calories; D64.9 Anemia, unspecified; F17.210 Nicotine dependence, cigarettes, uncomplicated | CPT/HCPCS: 36415; 80051; 82310; 82565; 82728; 83540; 84520; 85027; 99212 ==

== ENCOUNTER 2023-03-13 12:10 | Outpatient (REF) | payer MEDICARE, SELFPAY ==
[2023-03-13 13:45] LABS: Hematocrit 32.6 % (42.0-52.0); Hemoglobin 9.1 g/dl (14.0-18.0); Mean Corpuscular HGB Conc 27.9 g/dl (31.0-36.0); Mean Corpuscular Hemoglobin 20.6 pg (27.0-33.0); Mean Corpuscular Volume 73.9 fL (80.0-98.0); Mean Platelet Volume 10.9 fL (9.4-12.4); Platelet Count 280 X10*3/uL (160-400); Red Blood Count 4.41 X10*6/uL (4.60-5.80); Red Cell Distribution Width 21.2 % (11.0-16.0); White Blood Count 6.8 X10*3/uL (4.8-10.8)
[2023-03-13 13:59] LABS: Anion Gap 15 (12-20); Blood Urea Nitrogen 22 mg/dL (9-16); Calcium 9.7 mg/dL (8.4-10.2); Carbon Dioxide 23 mmol/L (22-29); Chloride 106 mmol/L (96-108); Estimated Glomerular Filt Rate > 60; Iron 42 mcg/dL (45-160); Percent Iron Saturation 11 % (15-50); Potassium 4.9 mmol/L (3.3-5.1); Sodium 139 mmol/L (135-145); Total Iron Binding Capacity 397 mcg/dL (228-428); Unsaturated Iron Binding 355 ug/dL
[2023-03-13 14:13] LABS: Ferritin 10 ng/mL (20-250)
== END 2023-03-13 12:11 | disposition home or self-care (01) ==
LOC: HO.10HDL 12:10
PROVIDERS: Visit Provider Internal Medicine Hypertension Specialist
DX: Z13.89 Encounter for screening for other disorder (principal)
CPT/HCPCS: 36415; 80051; 82310; 82565; 82728; 83540; 84520; 85027

== ENCOUNTER 2023-05-14 08:43 | Outpatient (REF) | payer MEDICARE, SELFPAY ==
--- NOTE | ~2023-05-14 | CT_ITS ---
EXAMINATION: CT CHEST SCREENING CLINICAL INFORMATION: History of nicotine dependence. Quit smoking one year ago. Had smoked 1 pack per day for 30 pack years. COMPARISON: 05/19/2022. TECHNIQUE: Multidetector volumetric CT imaging of the chest is performed without contrast using low-dose technique. Additional 2D coronal and sagittal reformatted images and axial 3D maximum intensity projection (MIP) images are generated on the CT workstation. This CT examination was performed using dose optimization techniques as appropriate, variously including the following: *Automated exposure control *Adjustment of mA and/or kV according to patient size (this includes techniques or standardized protocols for targeted exams where dose is matched to indication/reason for exam; i.e. extremities or head) *Use of iterative reconstruction technique DLP: 110 mGy-cm FINDINGS: LUNGS: Some minimal emphysematous changes are present. A few small bullae noted at the apices. The lungs are well expanded. There is a 2 mm left upper lobe nodule, unchanged (5:122 compare prior 6:151). There is a tiny 2 mm right upper lobe nodule which is new (5:243). MEDIASTINUM: The thyroid is unremarkable. The central trachea and the bronchi are widely patent. Heart size and the great vessels are normal caliber. No pleural effusion or abnormal lymphadenopathy seen. CORONARY ARTERY CALCIFICATION: None visualized on this study. PLEURA: There is no pleural effusion. No pleural mass or thickening. AXILLA: Unremarkable. UPPER ABDOMEN: Visualized liver, spleen, pancreas and bilateral adrenal glands are unremarkable. OSSEOUS STRUCTURES: No aggressive lytic or sclerotic process seen. Mild degenerative changes are again noted in the thoracic spine. CT/CT lung screening IMPRESSION: Tiny benign-appearing nodular densities. Minimal emphysema. ASSESSMENT: Lung-RADS category 2: Benign. RECOMMENDATION: Routine annual low-dose CT screening in 12 months.
== END 2023-05-14 08:44 | disposition home or self-care (01) ==
LOC: HO.CT 08:43
PROVIDERS: PCP Internal Medicine; Visit Provider Physician Assistant Medical
DX: Z12.2 Encounter for screening for malignant neoplasm of respiratory organs (principal); F17.210 Nicotine dependence, cigarettes, uncomplicated
CPT/HCPCS: 71271

== ENCOUNTER 2023-05-15 10:41 | Outpatient (AMB) | payer MEDICARE, SELFPAY ==
--- NOTE | 2023-05-15 10:47 | MHC.OFFVIS ---
Intake Vital Signs 05/15/23 10:49 Height 5 ft 10 in Weight 286 lb 9.615 oz BMI 41.1 BP 136/70 Blood Pressure Location Lt brachial Position Sitting Pulse 74 Pulse Source Pulse Oximeter Pulse Oximetry (%) 94 Oxygen Delivery Method Room Air Intake Visit Reasons: pamela Allergies oxycodone [OXYCODONE] Adverse Reaction (Intermediate, Verified 05/15/23 10:53) HALLUCINATIONS, DIZZINESS simvastatin Adverse Reaction (Intermediate, Verified 05/15/23 10:53) myalgias elevated CPK [facility] Medical History Asthma Atrial fibrillation Cervical disc herniation COPD (chronic obstructive pulmonary disease) COVID-19 vaccine series completed Diabetes Gynecomastia History of cardioversion Hyperlipidemia Hypertension Hypogonadism Morbid obesity Nocturnal hypoxemia Obesity (BMI 30-39.9) PAMELA (obstructive sleep apnea) Respiratory failure with hypoxia and hypercapnia Sialolithiasis of submandibular gland Surgical History H/O arthroscopic knee surgery H/O colonoscopy H/O knee surgery H/O prior ablation treatment (04/09/20) H/O umbilical hernia repair H/O vasectomy History of cholecystectomy History of esophagogastroduodenoscopy (EGD) History of penile implant Hx of appendectomy Hx of neck surgery Hx of shoulder surgery Family History Father No problems noted. Mother No problems noted. 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
[2023-05-15 10:49] VITALS: BP 136/70; PULSE 74; O2SAT 94; BMI 41.1
--- NOTE | 2023-05-15 11:31 | A.OFFVIS_ITS ---
Intake Vital Signs 05/15/23 10:49 Height 5 ft 10 in Weight 286 lb 9.615 oz BMI 41.1 BP 136/70 Blood Pressure Location Lt brachial Position Sitting Pulse 74 Pulse Source Pulse Oximeter Pulse Oximetry (%) 94 Oxygen Delivery Method Room Air Intake Visit Reasons: pamela Allergies oxycodone [OXYCODONE] Adverse Reaction (Intermediate, Verified 05/15/23 11:02) HALLUCINATIONS, DIZZINESS simvastatin Adverse Reaction (Intermediate, Verified 05/15/23 11:02) myalgias elevated CPK Medication List - Last Reconciled 05/15/23 by Gerardo Cabrera MD albuterol sulfate 90 mcg/actuation 2 puffs PO Q4H PRN blood sugar diagnostic As directed cholecalciferol (vitamin D3) 25 mcg PO DAILY doxepin 1 - 2 caps PO BEDTIME ferrous sulfate 324 mg PO DAILY fexofenadine 180 mg PO DAILY fluticasone propion-salmeterol 250-50 mcg/dose (Advair Diskus) 1 inh inhalation BID gabapentin 600 mg PO TID glipizide 20 mg PO DAILY@1800 insulin aspart U-100 (Novolog FlexPen U-100 Insulin aspart) 40 units subcut TIDAC insulin degludec (Tresiba FlexTouch U-100 insulin) 76 units subcut BEDTIME insulin syringe-needle U-100 As directed metformin 1,000 mg PO BID metoprolol succinate ER 25 mg PO DAILY nystatin 100,000 units topical BID omeprazole 40 mg PO BID pen needle, diabetic As directed rivaroxaban (Xarelto) 1 tab PO QPM rosuvastatin 40 mg PO DAILY tiotropium bromide (Spiriva with HandiHaler) 1 cap inhalation DAILY triamcinolone acetonide 0.1% 0.1 appl topical BID Do you need a note to return to daycare/school/sports/work: No HPI pamela HPI Details THIS 67 YEARS OLD GENTLEMAN IS A CASE OF MORBID OBESITY, OBSTRUCTIVE SLEEP APNEA, AND CHRONIC OBSTRUCTIVE/RESTRICTIVE PULMONARY DISORDER. HE IS HERE FOR 6 MONTHS FOLLOW-UP. BREATHING ASHLEY HAS REMAINED VERY STABLE WITHOUT ANY ACUTE INFECTION OR EXACERBATION. HE DOES GET SHORT OF BREATH ON EXERTION OR CLIMBING STAIRS WHICH IS SAME BEFORE. HE USES CPAP VERY REGULARLY ACTUALLY 9-10 HOURS PER NIGHT, AND SLEEPS GOOD HE HAS NASAL PILLOWS AND THE PRESENT INTERFACE, DOES NOT FIT WELL, SO HE HAS SOME AIR LEAK AT NIGHTTIME. HE WILL BE CONTACTING THE DME TO PROVIDE HIM PROPER FITTING SIZE OF THE NASAL PILLOWS. HE REMAINS MOSTLY SEDENTARY AND HAS NOT BEEN ABLE TO LOSE MUCH WEIGHT . [facility] Medical History Nocturnal hypoxemia COVID-19 vaccine series completed Morbid obesity Sialolithiasis of submandibular gland History of cardioversion Respiratory failure with hypoxia and hypercapnia COPD (chronic obstructive pulmonary disease) PAMELA (obstructive sleep apnea) Obesity (BMI 30-39.9) Cervical disc herniation Gynecomastia Hypogonadism Asthma Atrial fibrillation Hyperlipidemia Hypertension Diabetes Surgical History Hx of shoulder surgery History of esophagogastroduodenoscopy (EGD) H/O colonoscopy Hx of neck surgery H/O prior ablation treatment (04/09/20) History of penile implant H/O vasectomy H/O umbilical hernia repair History of cholecystectomy H/O arthroscopic knee surgery H/O knee surgery Hx of appendectomy Family History Father No problems noted. Mother No problems noted. Social History Household Members: Spouse Housing: House Are you a primary behavioral health care coordinator to a significant other at home: No Do you presently have visiting nurse or other home services: No Alcohol intake: current Alcohol intake frequency: a few times a month Alcohol type: beer Patient Tobacco Use Status: Former Tobacco user Quit Date: 12/2019 Tobacco use type: Cigarette Cigarette Packs Per Day: 2.5 Cigarettes Per Day: 50.0 Years Smoked: 40 Review of Systems Const All systems reviewed & are unremarkable except as noted in HPI and below Eyes Reports no additional complaints ENT Reports nasal congestion (Mild intermittent) Card Denies chest pain, Reports irregular heart rhythm, Reports leg edema (Mild) and Reports dyspnea on exertion Resp Reports as per HPI and Reports dyspnea on exertion GI Reports no additional complaints Reports no additional complaints Musc Reports back pain and Reports arthralgias Skin/Breast Reports rash (Anterior abdominal wall) Neuro Reports no additional complaints Psych Reports no additional complaints Physical Exam Vital Signs: Last Vital Signs Pulse 74 05/15/23 10:49 BP 136/70 05/15/23 10:49 Pulse Ox 94 05/15/23 10:49 Oxygen Delivery Method Room Air 05/15/23 10:49 BMI result Body Mass Index 41.1 Const General: comfortable, no acute distress, alert and awake Orientation/consciousness: patient oriented x3 HEENT Head: Yes normal to inspection General nose exam: No nasal polyps present and No nasal discharge present Face and sinus: Yes sinuses nontender Mouth: oropharynx normal Throat: Yes posterior oropharynx normal Eyes General: appearance normal, both eyes and all related structures Neck Neck: Yes normal visual inspection, Yes no lymphadenopathy, Yes trachea midline and Yes no JVD Thyroid: Thyroid normal Chest Chest palpation & inspection: normal inspection of the chest, normal palpation of entire chest wall and no tenderness Resp Other: Percussion note not perceptible because of thick chest wall. Breath sounds are distant but equal on both sides. No wheezes rhonchi or crepitations Cardio Palpation: PMI not normal (Not palpable) Rate: regular rate Rhythm: regular rhythm Heart sounds: no gallops and no murmurs GI Palpation (GI): Soft to palpation, nontender, No hepatosplenomegaly present, no masses and Other GI palpation findings present (Abdomen is grossly obese and protuberant) Auscultation: normal bowel sounds Back/Spine/Pelvis Thoracic/Lumbar Spine: thoracic and lumbar spine normal to inspection and thoraco-lumbar ROM limited Skin General skin exam: dry skin and other (Few scattered, excoriations on the upper abdominal wall) Neuro General: patient oriented x3, No gait normal (Impaired due to arthritis, uses cane) and no focal motor deficits Cranial nerves: Yes CN's II-XII intact bilaterally Extrem General: Yes normal to inspection, Yes no calf tenderness and Yes edema (MILD PITTING EDEMA) Psych Appearance: grossly normal and well kempt Speech and movement: Normal speech and movement present Results Reviewed Results Reviewed: COMPLIANCE REPORT FOR THE LAST 30 NIGHTS IS REVIEWED. HE HAS USED 30/30 NIGHTS, 100%. AVERAGE USE PER NIGHT 10 HOURS 50 MINUTES. PRESSURE IS 12 CM, HE HAS MODERATE AMOUNT OF AIR LEAK. RESIDUAL AHI 1.4 Assessment & Plan Assessment & Plan (1) Obesity (BMI 30-39.9): Comment: THERE IS SOME WEIGHT INCREASE SINCE LAST VISIT. WEIGHT REDUCTION NOT PRACTICAL IN HIS CASE , HE WILL WATCH HIS DIET , AND STAY ON LOW CARBs . Code(s): E66.9 - Obesity, unspecified Plan: ABOVE (2) PAMELA (obstructive sleep apnea): Comment: HE HAS HISTORY OF OBSTRUCTIVE SLEEP APNEA, WHICH IS WELL CONTROLLED WITH THE USE OF CPAP. VERY COMPLIANT TO USE OF CPAP,,PLUS O2 AT NIGHT , AND IS BENEFITTING . Code(s): G47.33 - Obstructive sleep apnea (adult) (pediatric) Plan: ADVISED TO CONTINUE USING THE CPAP REGULARLY ALONG WITH O2. USE THE WARM HUMIDIFICATION . (3) COPD (chronic obstructive pulmonary disease): Comment: MODERATELY SEVERE, CONTROLLED WITH CURRENT REGIMEN. HE DOES HAVE SHORTNESS OF BREATH ON EXERTION SUCH WALKING. THIS IS DUE TO COMBINATION OF OBESITY, OBSTRUCTIVE AND RESTRICTIVE LUNG DISEASE. Code(s): J44.9 - Chronic obstructive pulmonary disease, unspecified Plan: RX: ADVAIR 250-50 1 INHALATION B.I.D. HE STATES MOST OF THE TIME HE IS USING ONLY ONCE A DAY. SPIRIVA HANDIHALER ONE INH DAILY Ventolin 2 PUFFS Q 4-6 HOURS ONLY P.R.N. FOR ACUTE WHEEZING OR SHORTNESS OF BREATH. (4) Respiratory failure with hypoxia and hypercapnia: Comment: HAS CHRONIC HYPOVENTILATION SYNDROME . IMPROVED WITH THE USE OF CPAP AND OXYGEN. Code(s): J96.91 - Respiratory failure, unspecified with hypoxia; J96.92 - Respiratory failure, unspecified with hypercapnia Plan TX: USE O2 2 L/Mt , FOR THE WHOLE NIGHT. ADVISED TO USE O2 DURING THE DAYTIME 2 L/MINUTE ONLY WHEN HE IS DOING ANY PHYSICAL ACTIVITY. BUT IF HE IS JUST SITTING AND RESTING HE DOES NOT NEED TO USE O2 . ALSO EXPLAINED AND ADVISED TO DO DEEP BREATHING EXERCISES AND ADVISE THAT HE SHOULD DO EVERY FEW HOURS W/A . Quality Reporting (2019) Adult ([facility] [address]/28/68) Body Mass Index: 41.1 Coding Level of Care Code Est Pt Level 4 (41677) Diagnoses Obesity (BMI 30-39.9) E66.9 PAMELA (obstructive sleep apnea) G47.33 COPD (chronic obstructive pulmonary disease) J44.9 Respiratory failure with hypoxia and hypercapnia J96.91; J96.92
[2023-05-15 11:41] VITALS: BMI 41.1
== END 2023-05-15 11:09 | disposition home or self-care (01) ==
PROVIDERS: PCP Internal Medicine; Visit Provider Internal Medicine
DX: E66.9 Obesity, unspecified (principal); G47.33 Obstructive sleep apnea (adult) (pediatric); J44.9 Chronic obstructive pulmonary disease, unspecified; J96.91 Respiratory failure, unspecified with hypoxia; J96.92 Respiratory failure, unspecified with hypercapnia
CPT/HCPCS: 99214

== ENCOUNTER → 2023-05-15 10:41 | Outpatient (BNVA) | payer MEDICARE, SELFPAY | PROVIDERS: PCP Internal Medicine; Visit Provider Internal Medicine | DX: G47.33 Obstructive sleep apnea (adult) (pediatric) (principal); J44.9 Chronic obstructive pulmonary disease, unspecified; J96.91 Respiratory failure, unspecified with hypoxia; J96.92 Respiratory failure, unspecified with hypercapnia; E66.9 Obesity, unspecified; Z68.41 Body mass index [BMI] 40.0-44.9, adult | CPT/HCPCS: 99212 ==

== ENCOUNTER 2023-06-11 11:06 | Outpatient (AMB) | payer MEDICARE, SELFPAY ==
--- NOTE | 2023-06-11 11:09 | HO.NEPHOV ---
HPI HPI Comments History of Present Illness Details Charlie is a 67-year-old man with a history of longstanding hypertension obesity and CKD. He had some leg ulcers which have resolved. He continues have each with rash which has not changed after holding the Lasix 06/11/23 Doing well. NO new issues Rash is better [facility] Medical History Nocturnal hypoxemia COVID-19 vaccine series completed Morbid obesity Sialolithiasis of submandibular gland History of cardioversion Respiratory failure with hypoxia and hypercapnia COPD (chronic obstructive pulmonary disease) TAE (obstructive sleep apnea) Obesity (BMI 30-39.9) Cervical disc herniation Gynecomastia Hypogonadism Asthma Atrial fibrillation Hyperlipidemia Hypertension Diabetes Surgical History Hx of shoulder surgery History of esophagogastroduodenoscopy (EGD) H/O colonoscopy Hx of neck surgery H/O prior ablation treatment (04/09/20) History of penile implant H/O vasectomy H/O umbilical hernia repair History of cholecystectomy H/O arthroscopic knee surgery H/O knee surgery Hx of appendectomy Family History Father No problems noted. Mother No problems noted. Social History Household Members: Spouse Housing: House Are you a primary pet care associate to a significant other at home: No Do you presently have visiting nurse or other home services: No Alcohol intake: current Alcohol intake frequency: a few times a month Alcohol type: beer Patient Tobacco Use Status: Former Tobacco user Quit Date: 12/2019 Tobacco use type: Cigarette Cigarette Packs Per Day: 2.5 Cigarettes Per Day: 50.0 Years Smoked: 40 Vital Signs 06/11/23 11:10 06/11/23 11:26 Height 5 ft 10 in Weight 286 lb 6 oz BMI 41.1 BP 150/72 H 130/70 Blood Pressure Location Lt brachial Lt brachial Position Sitting Sitting Pulse 69 Pulse Source Pulse Oximeter Pulse Oximetry (%) 94 Oxygen Delivery Method Room Air Physical Exam Vital Signs: Last Vital Signs Pulse 69 06/11/23 11:10 BP 150/72 H 06/11/23 11:10 Pulse Ox 94 06/11/23 11:10 Oxygen Delivery Method Room Air 06/11/23 11:10 BMI result Body Mass Index 41.1 Const General: comfortable; No acute distress Orientation/consciousness: patient oriented x3 Eyes General: appearance normal, both eyes and all related structures Visual Botello: normal visual botello by confrontation Neck Neck: Yes supple and Yes no JVD Resp Effort & Inspection: normal respiratory effort and respiratory effort not decreased Auscultation: rhonchi Cardio Palpation: no palpable S3 and no palpable S4 Heart sounds: no rubs GI Inspection: Yes normal to inspection Palpation (GI): Soft to palpation Percussion: Yes normal to percussion Auscultation: normal bowel sounds General: Yes no CVA tenderness Back/Spine/Pelvis Back: no CVA tenderness Skin General skin exam: no petechiae and no purpura Neuro General: patient oriented x3 and no focal motor deficits Extrem General: No clubbing and No edema Assessment & Plan Assessment & Plan (1) Anemia: Code(s): D64.9 - Anemia, unspecified Plan: Primarily to iron deficiency. Hemoglobin is improving Continue iron supplementation (2) CKD (chronic kidney disease): Code(s): N18.9 - Chronic kidney disease, unspecified Plan: charlie has stage II CKD. Renal function close to baseline. Continue to avoid nephrotoxic agents and hypotension. Plan Cause for the itching and rash seems unclear. Encouraged him to avoid gluten to see there is any improvement in the rash. Orders: Orders IRON PROFILE 4 Months N18.9 - Chronic kidney disease, unspecified Ferritin 4 Months N18.9 - Chronic kidney disease, unspecified Basic Metabolic Panel 4 Months N18.9 - Chronic kidney disease, unspecified Complete Blood Count Auto Diff 4 Months N18.30 - Chronic kidney disease, stage 3 unspecified, N18.9 - Chronic kidney disease, unspecified Coding Level of Care Code Est Pt Level 4 (23993) Diagnoses Anemia D64.9 CKD (chronic kidney disease) N18.9 Results Reviewed Nephrology Results: Hgb 9.1 g/dl (14.0-18.0) L 03/13/23 WBC 6.8 X10*3/uL (4.8-10.8) 03/13/23 Plt Count 280 X10*3/uL (160-400) 03/13/23 Sodium 139 mmol/L (135-145) 03/13/23 Potassium 4.9 mmol/L (3.3-5.1) 03/13/23 Chloride 106 mmol/L (96-108) 03/13/23 Carbon Dioxide 23 mmol/L (22-29) 03/13/23 BUN 22 mg/dL (9-16) H 03/13/23 Creatinine 0.99 mg/dL (0.5-1.4) 03/13/23 Calcium 9.7 mg/dL (8.4-10.2) 03/13/23 Urine Creatinine 56.21 mg/dL 12/11/22 Protein/Creatinin Ratio 0.73 (<0.2) H 12/11/22
[2023-06-11 11:10] VITALS: BP 150/72; PULSE 69; O2SAT 94; BMI 41.1
[2023-06-11 11:26] VITALS: BP 130/70
== END 2023-06-11 11:28 | disposition home or self-care (01) ==
PROVIDERS: PCP Internal Medicine; Visit Provider Internal Medicine Hypertension Specialist
DX: D64.9 Anemia, unspecified (principal); N18.9 Chronic kidney disease, unspecified
CPT/HCPCS: 99214

== ENCOUNTER → 2023-06-11 11:06 | Outpatient (BNVA) | payer MEDICARE, SELFPAY | PROVIDERS: PCP Internal Medicine; Visit Provider Internal Medicine Hypertension Specialist | DX: N18.2 Chronic kidney disease, stage 2 (mild) (principal); D64.9 Anemia, unspecified | CPT/HCPCS: 99212 ==

== ENCOUNTER 2023-09-04 11:52 | Outpatient (REF) | payer MEDICARE, SELFPAY ==
[2023-09-04 14:54] LABS: Anion Gap 17 (12-20); Blood Urea Nitrogen 31 mg/dL (9-16); Calcium 9.9 mg/dL (8.4-10.2); Carbon Dioxide 24 mmol/L (22-29); Chloride 102 mmol/L (96-108); Estimated Glomerular Filt Rate > 60; Glucose Random 268 mg/dL (60-115); Potassium 5.2 mmol/L (3.3-5.1); Sodium 138 mmol/L (135-145)
== END 2023-09-04 11:53 | disposition home or self-care (01) ==
LOC: HO.CHCLDS 11:52
PROVIDERS: Visit Provider Internal Medicine
DX: I10 Essential (primary) hypertension (principal)
CPT/HCPCS: 36415; 80048

== ENCOUNTER 2023-10-03 12:46 | Outpatient (REF) | payer MEDICARE, SELFPAY ==
[2023-10-03 16:36] LABS: MANUAL DIFF FLAG NO
[2023-10-03 16:53] LABS: Basophils Percent Auto 0.7 % (0-2); Eosinophils Absolute Auto 0.1 X10*3/uL (0.0-0.4); Eosinophils Percent Auto 1.7 % (0-4); Hematocrit 41.1 % (42.0-52.0); Hemoglobin 12.9 g/dl (14.0-18.0); Imm Gran Abs Auto 0.04 X10*3/uL (0.00-0.03); Imm Gran Pct Auto 0.7 % (0.0-0.4); Lymphocytes Absolute Auto 1.6 X10*3/uL (1.2-4.9); Lymphocytes Percent Auto 27.4 % (20-40); Mean Corpuscular HGB Conc 31.4 g/dl (31.0-36.0); Mean Platelet Volume 11.3 fL (9.4-12.4); Monocytes Absolute Auto 0.6 X10*3/uL (0.1-1.2); Monocytes Percent Auto 9.7 % (2-11); Neutrophils Absolute Auto 3.6 x10*3/uL (2.0-8.3); Neutrophils Percent Auto 59.8 % (45-73); Platelet Count 210 X10*3/uL (160-400); Red Blood Count 4.78 X10*6/uL (4.60-5.80); Red Cell Distribution Width 17.3 % (11.0-16.0)
[2023-10-03 17:10] LABS: Anion Gap 15 (12-20); Blood Urea Nitrogen 19 mg/dL (9-16); Carbon Dioxide 23 mmol/L (22-29); Chloride 109 mmol/L (96-108); Estimated Glomerular Filt Rate > 60; Glucose Random 62 mg/dL (60-115); Iron 100 mcg/dL (45-160); Percent Iron Saturation 26 % (15-50); Potassium 4.5 mmol/L (3.3-5.1); Sodium 142 mmol/L (135-145); Total Iron Binding Capacity 388 mcg/dL (228-428); Unsaturated Iron Binding 288 ug/dL
[2023-10-03 17:28] LABS: Ferritin 20 ng/mL (20-250)
[2023-10-10 20:38] LABS: Testosterone, Free 14.7 pg/mL (35.0-155.0); Testosterone, Total 98 ng/dL (250-1100)
== END 2023-10-03 12:47 | disposition home or self-care (01) ==
LOC: HO.HMGCLDS 12:46
PROVIDERS: PCP Internal Medicine; Visit Provider Internal Medicine Hypertension Specialist
DX: N52.9 Male erectile dysfunction, unspecified (principal); N18.30 Chronic kidney disease, stage 3 unspecified; E87.5 Hyperkalemia
CPT/HCPCS: 36415; 80048; 82728; 83540; 84402; 84403; 85025

== ENCOUNTER 2023-10-08 11:09 | Outpatient (AMB) | payer MEDICARE, SELFPAY ==
[2023-10-08 11:10] VITALS: BP 118/80; PULSE 129; O2SAT 95; BMI 41.5
--- NOTE | 2023-10-08 11:10 | HO.NEPHOV_ITS ---
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 He had some leg ulcers which have resolved. He continues have each with rash which has not changed after holding the Lasix 06/11/23; Doing well. NO new issues Rash is better 10/08/23 Maunparminderro has been added [facility] Medical History Nocturnal hypoxemia COVID-19 vaccine series completed Morbid obesity Sialolithiasis of submandibular gland History of cardioversion Respiratory failure with hypoxia and hypercapnia COPD (chronic obstructive pulmonary disease) TAE (obstructive sleep apnea) Obesity (BMI 30-39.9) Cervical disc herniation Gynecomastia Hypogonadism Asthma Atrial fibrillation Hyperlipidemia Hypertension Diabetes Surgical History Hx of shoulder surgery History of esophagogastroduodenoscopy (EGD) H/O colonoscopy Hx of neck surgery H/O prior ablation treatment (04/09/20) History of penile implant H/O vasectomy H/O umbilical hernia repair History of cholecystectomy H/O arthroscopic knee surgery H/O knee surgery Hx of appendectomy Family History Father No problems noted. Mother No problems noted. Social History Household Members: Spouse Housing: House Are you a primary insurance healthcare representative to a significant other at home: No Do you presently have visiting nurse or other home services: No Alcohol intake: current Alcohol intake frequency: a few times a month Alcohol type: beer Patient Tobacco Use Status: Former Tobacco user Tobacco use type: Cigarette Cigarette Packs Per Day: 2.5 Cigarettes Per Day: 50.0 Years Smoked: 40 Review of Systems Const Denies anorexia, Denies fever(s) and Denies weakness Eyes Denies blurry vision Card Denies no additional complaints and Denies dyspnea Resp Reports no additional complaints, Reports cough and Denies dyspnea GI Denies melena and Denies diarrhea Denies hematuria Musc Denies tingling Skin/Breast Denies rash Neuro Denies focal weakness, Denies tingling, Denies tremor(s) and Denies weakness Physical Exam Vital Signs: Last Vital Signs Pulse 129 H 10/08/23 11:10 BP 118/80 10/08/23 11:10 Pulse Ox 95 10/08/23 11:10 Oxygen Delivery Method Room Air 10/08/23 11:10 BMI result Body Mass Index 41.5 Const General: comfortable; No acute distress Orientation/consciousness: patient oriented x3 Eyes General: appearance normal, both eyes and all related structures Visual Botello: normal visual botello by confrontation Neck Neck: Yes supple and Yes no JVD Resp Effort & Inspection: normal respiratory effort and respiratory effort not decreased Auscultation: rhonchi Cardio Palpation: no palpable S3 and no palpable S4 Heart sounds: no rubs GI Inspection: Yes normal to inspection Palpation (GI): Soft to palpation Percussion: Yes normal to percussion Auscultation: normal bowel sounds General: Yes no CVA tenderness Back/Spine/Pelvis Back: no CVA tenderness Skin General skin exam: no petechiae and no purpura Neuro General: patient oriented x3 and no focal motor deficits Extrem General: No clubbing and No edema Results Reviewed Nephrology Results: Hgb 12.9 g/dl (14.0-18.0) L 10/03/23 WBC 6.0 X10*3/uL (4.8-10.8) 10/03/23 Plt Count 210 X10*3/uL (160-400) 10/03/23 Sodium 142 mmol/L (135-145) 10/03/23 Potassium 4.5 mmol/L (3.3-5.1) 10/03/23 Chloride 109 mmol/L (96-108) H 10/03/23 Carbon Dioxide 23 mmol/L (22-29) 10/03/23 BUN 19 mg/dL (9-16) H 10/03/23 Creatinine 0.85 mg/dL (0.5-1.4) 10/03/23 Calcium 10.0 mg/dL (8.4-10.2) 10/03/23 Urine Creatinine 56.21 mg/dL 12/11/22 Protein/Creatinin Ratio 0.73 (<0.2) H 12/11/22 Assessment & Plan Assessment & Plan (1) Anemia: Code(s): D64.9 - Anemia, unspecified Category: Medical Plan: Primarily to iron deficiency. Hemoglobin is improving Continue iron supplementation (2) CKD (chronic kidney disease): Code(s): N18.9 - Chronic kidney disease, unspecified Category: Medical Plan: charlie has stage II CKD. Renal function close to baseline. Continue to avoid nephrotoxic agents and hypotension. Plan Cause for the itching and rash seems unclear. Maybe related to laundry detergent. Rash improved after changing the detergent.Encouraged him to avoid gluten to see there is any improvement in the rash. Orders: Orders Basic Metabolic Panel 6 Months D64.9 - Anemia, unspecified, N18.9 - Chronic kidney disease, unspecified Total Protein Urine Random 6 Months D64.9 - Anemia, unspecified, N18.9 - Chronic kidney disease, unspecified UA and rflx microscopic 6 Months D64.9 - Anemia, unspecified, N18.9 - Chronic kidney disease, unspecified Creatinine Urine 6 Months D64.9 - Anemia, unspecified, N18.9 - Chronic kidney disease, unspecified Complete Blood Count Auto Diff 6 Months D64.9 - Anemia, unspecified, N18.30 - Chronic kidney disease, stage 3 unspecified, N18.9 - Chronic kidney disease, unspecified Coding Level of Care Code Est Pt Level 4 (98752) Diagnoses Anemia D64.9 CKD (chronic kidney disease) N18.9
== END 2023-10-08 11:31 | disposition home or self-care (01) ==
PROVIDERS: PCP Internal Medicine; Visit Provider Internal Medicine Hypertension Specialist
DX: D64.9 Anemia, unspecified (principal); N18.9 Chronic kidney disease, unspecified
CPT/HCPCS: 99214

== ENCOUNTER → 2023-10-08 11:09 | Outpatient (BNVA) | payer MEDICARE, SELFPAY | PROVIDERS: PCP Internal Medicine; Visit Provider Internal Medicine Hypertension Specialist | DX: I10 Essential (primary) hypertension (principal); D64.9 Anemia, unspecified; N18.2 Chronic kidney disease, stage 2 (mild) | CPT/HCPCS: 99212 ==

== ENCOUNTER 2023-10-16 14:22 | Outpatient (REF) | payer MEDICARE, SELFPAY ==
[2023-10-22 16:38] LABS: Testosterone, Total 94 ng/dL (250-1100)
== END 2023-10-16 14:23 | disposition home or self-care (01) ==
LOC: HO.CHCLDS 14:22
PROVIDERS: Visit Provider Internal Medicine
DX: E29.1 Testicular hypofunction (principal)
CPT/HCPCS: 36415; 84403

== ENCOUNTER 2023-11-12 10:44 | Outpatient (REF) | payer MEDICARE, SELFPAY ==
--- NOTE | ~2023-11-12 | XR_ITS ---
EXAMINATION: XR FOOT, LEFT CLINICAL INFORMATION: Foot pain. Lump in the foot. COMPARISON: Left ankle 06/28/2022 TECHNIQUE: AP, lateral, and oblique views of the left foot. FINDINGS: Soft tissue marker is positioned along the plantar/lateral aspect of the foot at the level of the MTP joint. No evidence of acute fracture or dislocation. No abnormal soft tissue calcification or radiopaque foreign body seen. No air is seen in the soft tissue. Mild first MTP arthritis. Plantar and posterior calcaneal spurring. XR/XR foot LT min 3V IMPRESSION: No evidence of acute osseous abnormality. No abnormal soft tissue calcification or radiopaque foreign body. Etiology of the patient's symptoms has not been determined by x-ray.
== END 2023-11-12 10:45 | disposition home or self-care (01) ==
LOC: HO.XRAY 10:44
PROVIDERS: PCP Internal Medicine; Visit Provider Internal Medicine
DX: M79.672 Pain in left foot (principal)
CPT/HCPCS: 73630

== ENCOUNTER 2023-11-13 10:22 | Outpatient (AMB) | payer MEDICARE, SELFPAY ==
[2023-11-13 10:31] VITALS: BP 130/68; PULSE 76; O2SAT 94; BMI 39.9
--- NOTE | 2023-11-13 10:31 | MHC.OFFVIS ---
Vital Signs 11/13/23 10:31 Height 5 ft 10 in Weight 277 lb 12.519 oz BMI 39.9 BP 130/68 Pulse 76 Pulse Source Pulse Oximeter Pulse Oximetry (%) 94 Oxygen Delivery Method Room Air Intake Visit Reasons: pamela Intake Note: pt is here for follow up and states , he cannot get his mask to seal well, and humidity. Full Fashioned Garment Knitter Required: No Allergies oxycodone [OXYCODONE] Adverse Reaction (Intermediate, Verified 11/13/23 10:46) HALLUCINATIONS, DIZZINESS simvastatin Adverse Reaction (Intermediate, Verified 11/13/23 10:46) myalgias elevated CPK Medication List - Last Reconciled 11/13/23 by Gerardo Cabrera MD albuterol sulfate 90 mcg/actuation 2 puffs PO Q4H PRN blood sugar diagnostic As directed cholecalciferol (vitamin D3) 25 mcg PO DAILY doxepin 1 - 2 caps PO BEDTIME ferrous sulfate 324 mg PO DAILY fexofenadine 180 mg PO DAILY fluticasone propion-salmeterol 250-50 mcg/dose (Advair Diskus) 1 inh inhalation BID gabapentin 800 mg PO TID glipizide 20 mg PO DAILY@1800 insulin aspart U-100 (Novolog FlexPen U-100 Insulin aspart) 40 units subcut TIDAC insulin degludec (Tresiba FlexTouch U-100 insulin) 76 units subcut BEDTIME insulin syringe-needle U-100 As directed metformin 1,000 mg PO BID metoprolol succinate ER 25 mg PO DAILY nystatin 100,000 units topical BID omeprazole 40 mg PO BID pen needle, diabetic As directed rivaroxaban (Xarelto) 1 tab PO QPM rosuvastatin 40 mg PO DAILY tiotropium bromide (Spiriva with HandiHaler) 1 cap inhalation DAILY tirzepatide (Mounjaro) mg subcut triamcinolone acetonide 0.1% 0.1 appl topical BID Do you need a note to return to daycare/school/sports/work: No HPI HPI pamela: Details: 68 years old gentleman, grossly obese and with history of sleep apnea, as well as COPD, comes after 6 months for routine follow-up. He has done fairly well during the last 6 months. He is happy on losing some weight as he is started on Tirzepatide ( Mounjero ) Uses his CPAP regularly, with nasal pillows and pressure of 12 cm. Even those he still has some air leak, his sleep apnea is well controlled. Denies any daytime sleepiness. Breathing has been well controlled and stable. He has very little cough or wheezing. Activity level remains limited, as he can not walk much. [facility] Medical History Nocturnal hypoxemia COVID-19 vaccine series completed Morbid obesity Sialolithiasis of submandibular gland History of cardioversion Respiratory failure with hypoxia and hypercapnia COPD (chronic obstructive pulmonary disease) PAMELA (obstructive sleep apnea) Obesity (BMI 30-39.9) Cervical disc herniation Gynecomastia Hypogonadism Asthma Atrial fibrillation Hyperlipidemia Hypertension Diabetes Surgical History Hx of shoulder surgery History of esophagogastroduodenoscopy (EGD) H/O colonoscopy Hx of neck surgery H/O prior ablation treatment (04/09/20) History of penile implant H/O vasectomy H/O umbilical hernia repair History of cholecystectomy H/O arthroscopic knee surgery H/O knee surgery Hx of appendectomy Family History Father No problems noted. Mother No problems noted. Social History Household Members: Spouse Housing: House Are you a primary care team coordinator scheduler to a significant other at home: No Do you presently have visiting nurse or other home services: No Alcohol intake: current Alcohol intake frequency: a few times a month Alcohol type: beer Patient Tobacco Use Status: Former Tobacco user Tobacco use type: Cigarette Cigarette Packs Per Day: 2.5 Cigarettes Per Day: 50.0 Years Smoked: 40 Review of Systems Const All systems reviewed & are unremarkable except as noted in HPI and below Eyes Reports no additional complaints ENT Reports nasal congestion (Mild intermittent) Card Denies chest pain, Reports irregular heart rhythm, Reports leg edema (Mild) and Reports dyspnea on exertion Resp Reports as per HPI and Reports dyspnea on exertion GI Reports no additional complaints Reports no additional complaints Musc Reports back pain and Reports arthralgias Skin/Breast Reports rash (Anterior abdominal wall) Neuro Reports no additional complaints Psych Reports no additional complaints Physical Exam Vital Signs: Last Vital Signs Pulse 76 07/09/24 10:31 BP 130/68 11/13/23 10:31 Pulse Ox 94 11/13/23 10:31 Oxygen Delivery Method Room Air 11/13/23 10:31 BMI result Body Mass Index 39.9 Const General: comfortable, no acute distress, alert and awake Orientation/consciousness: patient oriented x3 HEENT Head: Yes normal to inspection General nose exam: No nasal polyps present and No nasal discharge present Face and sinus: Yes sinuses nontender Mouth: oropharynx normal Throat: Yes posterior oropharynx normal Eyes General: appearance normal, both eyes and all related structures Neck Neck: Yes normal visual inspection, Yes no lymphadenopathy, Yes trachea midline and Yes no JVD Thyroid: Thyroid normal Chest Chest palpation & inspection: normal inspection of the chest, normal palpation of entire chest wall and no tenderness Resp Other: Percussion note not perceptible because of thick chest wall. Breath sounds are distant but equal on both sides. No wheezes rhonchi or crepitations Cardio Palpation: PMI not normal (Not palpable) Rate: regular rate Rhythm: regular rhythm Heart sounds: no gallops and no murmurs GI Palpation (GI): Soft to palpation, nontender, No hepatosplenomegaly present, no masses and Other GI palpation findings present (Abdomen is grossly obese and protuberant) Auscultation: normal bowel sounds Back/Spine/Pelvis Thoracic/Lumbar Spine: thoracic and lumbar spine normal to inspection and thoraco-lumbar ROM limited Skin General skin exam: dry skin and other (Few scattered, excoriations on the upper abdominal wall) Neuro General: patient oriented x3, No gait normal (Impaired due to arthritis, uses cane) and no focal motor deficits Cranial nerves: Yes CN's II-XII intact bilaterally Extrem General: Yes normal to inspection, Yes no calf tenderness and Yes edema (MILD PITTING EDEMA) Psych Appearance: grossly normal and well kempt Speech and movement: Normal speech and movement present Results Reviewed Results Reviewed: THE COMPLIANCE FOR THE LAST 30 NIGHTS IS REVIEWED AND HE HAS USED 30/30 NIGHTS, 100% OF THE NIGHTS. AVERAGE USE IT PER NIGHT 9 HOURS 46 MINUTES. PRESSURE 12 CM, TX: Montelukast 10 mg daily Claritin 10 mg 1 a day only p.r.n. NASAL PILLOWS. THERE IS AIR LEAK MAXIMUM 116 L/MINUTE. HOWEVER RESIDUAL AHI IS ONLY 1.6 Assessment & Plan Assessment & Plan (1) COPD (chronic obstructive pulmonary disease): Comment: MODERATELY SEVERE, CONTROLLED WITH CURRENT REGIMEN. HE DOES HAVE SHORTNESS OF BREATH ON EXERTION SUCH WALKING. THIS IS DUE TO COMBINATION OF OBESITY, OBSTRUCTIVE AND RESTRICTIVE LUNG DISEASE. Code(s): J44.9 - Chronic obstructive pulmonary disease, unspecified Category: Medical Plan: CONTINUE ADVAIR 250-51 INHALATION B.I.D. AND SPIRIVA HANDIHALER 1 INHALATION DAILY ALBUTEROL HFA 2 PUFFS Q 6 HOURS ONLY P.R.N.. (2) PAMELA (obstructive sleep apnea): Comment: HE HAS HISTORY OF OBSTRUCTIVE SLEEP APNEA, WHICH IS WELL CONTROLLED WITH THE USE OF CPAP. VERY COMPLIANT TO USE OF CPAP,,PLUS O2 AT NIGHT , AND IS BENEFITTING . Code(s): G47.33 - Obstructive sleep apnea (adult) (pediatric) Category: Medical Plan: COMMENDED FOR VERY GOOD COMPLIANCE, TOLD THAT EVEN THOUGH THERE IS SOME AIR LEAK THAT IS OKAY BECAUSE THE RESIDUAL AHI IS ONLY 1.6. KEEP ON USING IT REGULARLY. (3) Obesity (BMI 30-39.9): Comment: HE DOES HAVE MORBID OBESITY BUT CURRENTLY ON ANTI OBESITY MED, MOUNJERO, HE HAS LOST SOME WEIGHT. Code(s): E66.9 - Obesity, unspecified Category: Medical Plan: COMMENDED FOR LOSING WEIGHT, CONTINUE WATCHING DIET AND START WALKING AROUND OR DOING SOME WEIGHT LIFTING DAILY. (4) Respiratory failure with hypoxia and hypercapnia: Comment: HAS CHRONIC HYPOVENTILATION SYNDROME . IMPROVED WITH THE USE OF CPAP AND OXYGEN. Code(s): J96.91 - Respiratory failure, unspecified with hypoxia; J96.92 - Respiratory failure, unspecified with hypercapnia Category: Medical Plan: CONTINUE TO USE CPAP REGULARLY EVERY NIGHT. CONTINUE TO USE O2 2 L/MINUTE AT NIGHT ALONG WITH CPAP. Coding Level of Care Code Est Pt Level 3 (34967) Diagnoses COPD (chronic obstructive pulmonary disease) J44.9 PAMELA (obstructive sleep apnea) G47.33 Obesity (BMI 30-39.9) E66.9 Respiratory failure with hypoxia and hypercapnia J96.91; J96.92
== END 2023-11-13 10:48 | disposition home or self-care (01) ==
PROVIDERS: PCP Internal Medicine; Visit Provider Internal Medicine
DX: J44.9 Chronic obstructive pulmonary disease, unspecified (principal); G47.33 Obstructive sleep apnea (adult) (pediatric); E66.9 Obesity, unspecified; J96.91 Respiratory failure, unspecified with hypoxia; J96.92 Respiratory failure, unspecified with hypercapnia
CPT/HCPCS: 99213

== ENCOUNTER → 2023-11-13 10:22 | Outpatient (BNVA) | payer MEDICARE, SELFPAY | PROVIDERS: PCP Internal Medicine; Visit Provider Internal Medicine | DX: J44.9 Chronic obstructive pulmonary disease, unspecified (principal); J96.91 Respiratory failure, unspecified with hypoxia; J96.92 Respiratory failure, unspecified with hypercapnia; E66.9 Obesity, unspecified; G47.33 Obstructive sleep apnea (adult) (pediatric); Z68.39 Body mass index [BMI] 39.0-39.9, adult | CPT/HCPCS: 99212 ==

== ENCOUNTER 2023-11-23 10:32 | Outpatient (AMB) | payer MEDICARE, SELFPAY ==
--- NOTE | 2023-11-23 10:34 | MHC.OFFVIS ---
Vital Signs 11/23/23 10:35 Height 5 ft 10 in Weight 273 lb 5.971 oz BMI 39.2 BP 122/76 Blood Pressure Location Rt brachial Position Sitting Pulse 85 Pulse Source Pulse Oximeter Intake Visit Reasons: Hypogonadism/CONFIRMED Intake Note: New patient presents today to establish treatment for Hypogonadism: Tissue Recovery Technician Required: No Accompanied by: Significant Other Allergies oxycodone [OXYCODONE] Adverse Reaction (Intermediate, Verified 11/23/23 10:36) HALLUCINATIONS, DIZZINESS simvastatin Adverse Reaction (Intermediate, Verified 11/23/23 10:36) myalgias elevated CPK HPI Comments Details: 68-year-old male with a longstanding history of hypogonadism who presents today at the request of his primary care provider. He has well controlled diabetes with his most recent recent A1c 6.8%. He is on multiple agents and was recently started on a GLP 1 agonist and has lost 17 lb. He has obstructive sleep apnea and is compliant with his CPAP. 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 He sleeps well at night. First diagnosed with Hypogonadism [30 years ago.] He has a penile implant which was placed many years ago and was working but due to low libido he has not attempted to use it in years. Prior to the implant he tried Viagra but this was ineffective Was started on Testosterone supplementation with [testosterone injections] many years ago and stopped after 3 years because he did not like injecting the testosterone. From his history it sounds like he was injecting the testosterone with the same needle he was withdrawing from the vial. He is not taking any [id number] male/testosterone supplements. Currently not achieving spontaneous am erections, and unable to achieve erection when desired. Reports low libido. Normal facial hair and shaving frequency. Denies penile discharge or scrotal tenderness. [Denies] any head trauma. [+] history of TAE. with 1 child who was conceived spontaneously. Sense of smell intact. Denies headache or visual changes, gynecomastia or galactorrhea. Denies orthostatic symptoms. Weight loss has been since starting GLP-1 agonist. Denies change in size of hands or feet. Denies hair loss, weight gain, cold intolerance. History of DVT or PE: [negative] [facility] Medical History (Updated 11/23/23 @ 11:44 by Theresa Bruno NP) Type 2 diabetes mellitus Erectile dysfunction Hypogonadism in male Nocturnal hypoxemia COVID-19 vaccine series completed Morbid obesity Sialolithiasis of submandibular gland History of cardioversion Respiratory failure with hypoxia and hypercapnia COPD (chronic obstructive pulmonary disease) TAE (obstructive sleep apnea) Obesity (BMI 30-39.9) Cervical disc herniation Gynecomastia Hypogonadism Asthma Atrial fibrillation Hyperlipidemia Hypertension Diabetes Surgical History Hx of shoulder surgery History of esophagogastroduodenoscopy (EGD) H/O colonoscopy Hx of neck surgery H/O prior ablation treatment (04/09/20) History of penile implant H/O vasectomy H/O umbilical hernia repair History of cholecystectomy H/O arthroscopic knee surgery H/O knee surgery Hx of appendectomy Family History Father No problems noted. Mother No problems noted. Social History Household Members: Spouse Housing: House Are you a primary care center manager to a significant other at home: No Do you presently have visiting nurse or other home services: No Alcohol intake: current Alcohol intake frequency: a few times a month Alcohol type: beer Patient Tobacco Use Status: Former Tobacco user Tobacco use type: Cigarette Cigarette Packs Per Day: 2.5 Cigarettes Per Day: 50.0 Years Smoked: 40 Physical Exam Vital Signs: Last Vital Signs Pulse 85 11/23/23 10:35 BP 122/76 11/23/23 10:35 BMI result Body Mass Index 39.2 There is the absence of eunichoidal proportions. Neck exam reveals nl thyroid about 15 gms. Chest exam reveals absence of gynecomastia. Lungs CTA. Heart is S1 S2 Reg R/R. -M/R/G. Abdominal exam is benign. Muscle strength is 5/5 proximally. Examination of genitalia reveals nl size pthalus . Testes are of nl size and consistency. There is Michael Stage V Hair development Const General: cooperative, no acute distress and alert Nutritional Appearance: overweight Orientation/consciousness: oriented to person Eyes Other: Sclera anicteric, no exophthalmos, proptotis, chemosis or periorbital edema Neck Other: Trachea midline with full ROM. No thyromegaly, no palpable thyroid nodules, thyroid nontender to palpation. Neck: Yes normal visual inspection Thyroid: Thyroid normal Resp Effort & Inspection: normal respiratory effort Cardio Rate: regular rate Rhythm: regular rhythm Heart sounds: S1 normal heart sound present and S2 normal heart sound present Skin Other: No Rashes Neuro General: oriented to person Extrem Other: lower leg brawny General: Yes no pedal edema Psych Other: Normal affect with clear speech Results Reviewed Results Reviewed: Laboratory Tests 10/03/23 10/16/23 12:52 14:12 RBC 4.78 Hgb 12.9 L D Hct 41.1 L D Plt Count 210 Sodium 142 Potassium 4.5 Chloride 109 H BUN 19 H Creatinine 0.85 Estimated GFR > 60 Calcium 10.0 Iron 100 Ferritin 20 Total Testosterone 98 L 94 L Fr Testosterone Dialys 14.7 L Assessment & Plan Assessment & Plan (1) Hypogonadism in male: Code(s): E29.1 - Testicular hypofunction Category: Medical Plan: Longstanding hypogonadism in a type 2 diabetic male with remote history of penile implant. He has had 2 very low testosterone levels. He is experiencing both fatigue, low libido and erectile dysfunction. Per his history his TAE is well controlled and he follows up regularly with a sleep specialist. He has had recent CBC and iron levels drawn. We will order a hormone workup along with AST ALT and refer patient to Dr. Srinivasan as he is interested in testosterone pellets. He will have morning blood work done and I will contact him with results. No follow-up was scheduled today as patient is not interested in shots and I do not believe that the testosterone patch will be effective. Orders: Orders Hematocrit Today E29.1 - Testicular hypofunction Sex Hormone Binding Globulin Today E29.1 - Testicular hypofunction Testosterone, Free/Total Today E29.1 - Testicular hypofunction TSH reflex Free T4 Today E29.1 - Testicular hypofunction Lipid Panel Today E29.1 - Testicular hypofunction Hemoglobin Today E29.1 - Testicular hypofunction Prolactin Today E29.1 - Testicular hypofunction PSA,Total (Free>4and<10) Today E29.1 - Testicular hypofunction Follicle Stimulating Hormone Today E29.1 - Testicular hypofunction Lutenizing Hormone Today E29.1 - Testicular hypofunction Referrals Urology Referral E29.1 - Testicular hypofunction, N52.9 - Male erectile dysfunction, unspecified Coding Level of Care Code Tele [facility] Pt Level 3 (00264) Diagnoses Hypogonadism in male E29.1 Time Spent (min) 20 Comment Time spent reviewing labs/previous provider notes, face to face, chart documentation
[2023-11-23 10:35] VITALS: BP 122/76; PULSE 85; BMI 39.2
== END 2023-11-23 10:59 | disposition home or self-care (01) ==
PROVIDERS: PCP Internal Medicine; Visit Provider Nurse Practitioner Adult Health
DX: E29.1 Testicular hypofunction (principal)
CPT/HCPCS: 99213

== ENCOUNTER → 2023-11-23 10:32 | Outpatient (BNVA) | payer MEDICARE, SELFPAY | PROVIDERS: PCP Internal Medicine; Visit Provider Nurse Practitioner Adult Health | DX: E29.1 Testicular hypofunction (principal); N52.9 Male erectile dysfunction, unspecified; E11.9 Type 2 diabetes mellitus without complications | CPT/HCPCS: 99212 ==

== ENCOUNTER 2023-11-26 08:29 | Outpatient (REF) | payer MEDICARE, SELFPAY ==
[2023-11-26 09:17] LABS: Hematocrit 40.3 % (42.0-52.0); Hemoglobin 13.1 g/dl (14.0-18.0)
[2023-11-26 10:03] LABS: Cholesterol 99 mg/dL (<200); HDL Cholesterol 36 mg/dL (>40); LDL Cholesterol Calculated 32 mg/dL (<100); Triglycerides 155 mg/dL (<150)
[2023-11-26 10:05] LABS: TSH reflex Free T4 1.18 uIU/mL (0.32-4.0)
[2023-11-26 10:29] LABS: PSA,Total (Free>4and<10) 0.13 ng/mL (0.00-4.00)
[2023-11-27 08:19] LABS: Sex Hormone Binding Globulin 21 nmol/L (22-77)
[2023-11-27 21:33] LABS: Follicle Stimulating Hormone 11.4 mIU/mL (1.4-12.8); Lutenizing Hormone 6.8 mIU/mL (1.6-15.2); Prolactin 11.6 ng/mL (2.0-18.0)
[2023-11-30 15:08] LABS: Testosterone, Free 13.6 pg/mL (35.0-155.0); Testosterone, Total 68 ng/dL (250-1100)
== END 2023-11-26 08:30 | disposition home or self-care (01) ==
LOC: HO.LAB 08:29
PROVIDERS: Absent Provider Internal Medicine Hypertension Specialist; PCP Internal Medicine; Visit Provider Nurse Practitioner Adult Health
DX: E29.1 Testicular hypofunction (principal); Z12.5 Encounter for screening for malignant neoplasm of prostate
CPT/HCPCS: 36415; 80061; 83001; 83002; 84146; 84153; 84270; 84402; 84403; 84443; 85014; 85018

== ENCOUNTER 2024-02-01 13:49 | Outpatient (AMB) | payer MEDICARE, SELFPAY ==
--- NOTE | 2024-02-01 13:57 | A.OFFVIS_ITS ---
Intake Visit Reasons: hypogonadism Intake Note: New patient is present for Hypogonadism/Erectile Dysfunction Patient has tried Testosterone Injections with No success Has Tried Tadalafil with no success Patient is interested in discussing Testopel Currently Patient has Penile Implant Recent LABS: 11/26/2023 PSA: 0.13 Total Testosterone: 68 Floor Tech Required: No Telecommunications Sales Representative: Telecommunications Sales Representative Present Accompanied by: Spouse Allergies oxycodone [OXYCODONE] Adverse Reaction (Intermediate, Verified 04/07/24 09:31) HALLUCINATIONS, DIZZINESS simvastatin Adverse Reaction (Intermediate, Verified 04/07/24 09:31) myalgias elevated CPK HPI Comments Details: Jaime is a pleasant male. He is a patient of . He is here for the following urologic conditions - hypogonadism Low testosterone Previously failed injections and gel and patches Gel did not bring T high enough Injections painful Patches caused dermatitis Would like to move ahead with trial of testosterone pellets [facility] Medical History (Updated 04/07/24 @ 09:45 by Filiberto Canales MD) Personal history of nicotine dependence Type 2 diabetes mellitus Erectile dysfunction Hypogonadism in male Nocturnal hypoxemia COVID-19 vaccine series completed Morbid obesity Sialolithiasis of submandibular gland History of cardioversion Respiratory failure with hypoxia and hypercapnia COPD (chronic obstructive pulmonary disease) TAE (obstructive sleep apnea) Obesity (BMI 30-39.9) Cervical disc herniation Gynecomastia Hypogonadism Asthma Atrial fibrillation Hyperlipidemia Hypertension Diabetes Surgical History Hx of shoulder surgery History of esophagogastroduodenoscopy (EGD) H/O colonoscopy Hx of neck surgery H/O prior ablation treatment (04/09/20) History of penile implant H/O vasectomy H/O umbilical hernia repair History of cholecystectomy H/O arthroscopic knee surgery H/O knee surgery Hx of appendectomy Family History Father No problems noted. Mother No problems noted. Social History Household Members: Spouse Housing: House Are you a primary landcare officer to a significant other at home: No Do you presently have visiting nurse or other home services: No Alcohol intake: current Alcohol intake frequency: a few times a month Alcohol type: beer Patient Tobacco Use Status: Former Tobacco user Tobacco use type: Cigarette Cigarette Packs Per Day: 2.5 Cigarettes Per Day: 50.0 Years Smoked: 40 Review of Systems Const Denies chills and Denies fever(s) Card Reports no additional complaints and Denies syncope Resp Denies cough GI Denies abdominal pain and Denies heartburn Reports as per HPI and Denies change in libido Neuro Denies syncope Psych Denies change in libido Endo Denies change in libido Physical Exam Const General: cooperative, healthy appearing, comfortable and no acute distress Orientation/consciousness: patient oriented x3 HEENT Face and sinus: Yes normal facial exam Mouth: moist mucous membranes Neck Neck: Yes normal visual inspection, Yes full ROM and Yes trachea midline Chest Chest palpation & inspection: normal inspection of the chest Resp Effort & Inspection: normal respiratory effort, able to speak in complete sentences and no respiratory distress GI Inspection: Yes normal to inspection Back/Spine/Pelvis Cervical Spine: normal cervical lordosis Thoracic/Lumbar Spine: thoracic and lumbar spine normal to inspection Skin General skin exam: no rashes or lesions noted Neuro General: patient oriented x3, gait normal, tone normal and moves all extremities Extrem General: Yes normal to inspection and Yes capillary refill normal Assessment & Plan Assessment & Plan (1) Hypogonadism in male: Code(s): E29.1 - Testicular hypofunction Category: Medical Plan Trial testosterone pellets Patient Instructions: Imaging studies, laboratory and physical exam results were discussed and reviewed in detail. No major barriers to patient understanding were identified. An opportunity to ask questions regarding the treatment plan was provided. All questions were answered. The patient expressed understanding and agreement with the above treatment plan. The patient is aware they should contact our office by phone for worsening of their current condition or the appearance of new urologic symptoms. Compliance is encouraged with any medications and followup testing that is ordered. It is a privilege to participate in the urologic care of your patient. If you have any questions or concerns regarding treatment for the above conditions, or other urologic issues, please do not hesitate to contact me. The office telephone contact is [phone]. This note is constructed using voice recognition software. While every effort has been made to ensure accuracy healthcare economics consultant errors may have been included. Yours sincerely, Dr Willard Srinivasan MD, [facility] - Urology Providers of Expert, Compassionate Care for the Genitourinary System Coding Level of Care Code New Pt Level 4 (75106) Diagnoses Hypogonadism in male E29.1
== END 2024-02-01 14:42 | disposition home or self-care (01) ==
PROVIDERS: PCP Internal Medicine; Visit Provider Urology
DX: E29.1 Testicular hypofunction (principal)
CPT/HCPCS: 99204

== ENCOUNTER → 2024-02-01 13:49 | Outpatient (BNVA) | payer MEDICARE, SELFPAY | PROVIDERS: PCP Internal Medicine; Visit Provider Urology | DX: E29.1 Testicular hypofunction (principal); N52.9 Male erectile dysfunction, unspecified | CPT/HCPCS: 99202 ==

== ENCOUNTER 2024-03-11 12:44 | Outpatient (AMB) | payer MEDICARE, SELFPAY ==
--- NOTE | 2024-03-11 12:51 | A.OFFVIS_ITS ---
Intake Visit Reasons: Testo pellet insertion Intake Note: Patient is Present for Testopel Insertion Urology Medication: None Antibiotic Allergies: None Blood Thinners: Xarelto Last PSA: 11/26/23 0.13 Total Testosterone: 11/26/23 68 Supervisor Blood Donor Recruiters Required: No Relationship Consultant: Relationship Consultant Present Accompanied by: Spouse Allergies oxycodone [OXYCODONE] Adverse Reaction (Intermediate, Verified 03/11/24 12:53) HALLUCINATIONS, DIZZINESS simvastatin Adverse Reaction (Intermediate, Verified 03/11/24 12:53) myalgias elevated CPK HPI Comments Details: Jaime is a pleasant male. He is a patient of . He is here for the following urologic conditions - hypogonadism Here for testosterone pellet placement 6 pellets placed Repeat lab work at 2 weeks and 10 weeks Repeat placement at 12 weeks Has lost 50 lb from Mounjaro Low testosterone Previously failed injections and gel and patches Gel did not bring T high enough Injections painful Patches caused dermatitis Trial testosterone pellets PFSH Medical History Type 2 diabetes mellitus Erectile dysfunction Hypogonadism in male Nocturnal hypoxemia COVID-19 vaccine series completed Morbid obesity Sialolithiasis of submandibular gland History of cardioversion Respiratory failure with hypoxia and hypercapnia COPD (chronic obstructive pulmonary disease) TAE (obstructive sleep apnea) Obesity (BMI 30-39.9) Cervical disc herniation Gynecomastia Hypogonadism Asthma Atrial fibrillation Hyperlipidemia Hypertension Diabetes Surgical History Hx of shoulder surgery History of esophagogastroduodenoscopy (EGD) H/O colonoscopy Hx of neck surgery H/O prior ablation treatment (04/09/20) History of penile implant H/O vasectomy H/O umbilical hernia repair History of cholecystectomy H/O arthroscopic knee surgery H/O knee surgery Hx of appendectomy Family History Father No problems noted. Mother No problems noted. Social History Household Members: Spouse Housing: House Are you a primary medicare interviewer to a significant other at home: No Do you presently have visiting nurse or other home services: No Alcohol intake: current Alcohol intake frequency: a few times a month Alcohol type: beer Patient Tobacco Use Status: Former Tobacco user Tobacco use type: Cigarette Cigarette Packs Per Day: 2.5 Cigarettes Per Day: 50.0 Years Smoked: 40 Review of Systems Const Denies chills and Denies fever(s) Card Reports no additional complaints and Denies syncope Resp Denies cough GI Denies abdominal pain and Denies heartburn Reports as per HPI and Denies change in libido Neuro Denies syncope Psych Denies change in libido Endo Denies change in libido Physical Exam Const General: cooperative, healthy appearing, comfortable and no acute distress Orientation/consciousness: patient oriented x3 HEENT Face and sinus: Yes normal facial exam Mouth: moist mucous membranes Neck Neck: Yes normal visual inspection, Yes full ROM and Yes trachea midline Chest Chest palpation & inspection: normal inspection of the chest Resp Effort & Inspection: normal respiratory effort, able to speak in complete sentences and no respiratory distress GI Inspection: Yes normal to inspection Back/Spine/Pelvis Cervical Spine: normal cervical lordosis Thoracic/Lumbar Spine: thoracic and lumbar spine normal to inspection Skin General skin exam: no rashes or lesions noted Neuro General: patient oriented x3, gait normal, tone normal and moves all extremities Extrem General: Yes normal to inspection and Yes capillary refill normal Office Procedures Procedure Thyroid Biopsy Procedural Documentation: CPT 57677 Subcutaneous hormone pellet implantation (implantation of testosterone pellets beneath the skin) [facility] - [id number] 6 pellets 75mg Patient in lateral jackknife - right side up The implantation area is the upper outer quadrant of the hip Cleanse the area with Betadine? swabs Place fenestrated drape over the patient, revealing the implantation area. Patrick anticipated trocar tract Create a skin wheal for scalpel insertion with local anesthetic Inject local anesthetic (lidocaine HCl 2%) to begin hydrodissection in subcutaneous fat layer. Complete hydrodissection of subcutaneous fat layer, and be sure to numb entire length of trocar tract Insert the scalpel straight down and to the plastic tip Insert trocar with sharp-ended stylet. Enter downward at a 45? angle and into the subcutaneous fat layer, flatten out the trocar, stopping to leave only the trocar well exposed. Forceps used to load pellets. Blunt stylet used to advance pellets in a V pattern with 5 pellets in each load. Once completed area cleansed with alcohol wipes Incision sealed using Steri-Strips? for closure. Area covered with a 2 x2 gauze, folded in half and secured by Tegaderm? Office Meds Testopel 75 mg implant pellet Performing Provider: Willard Srinivasan MD Performing Location: [facility] Administered by: Stefano Laguerre LPN on 03/11/24 13:15 Dose Route Admin Location Dispensed Lot Number Expiration Date ND Delivery Driver/Supervisor 75 mg implant 6 ea lidocaine HCl 20 mg/mL (2 %) injection solution Performing Provider: Willard Srinivasan MD Performing Location: [facility] Administered by: Stefano Laguerre LPN on 03/11/24 13:15 Dose Route Admin Location Dispensed Lot Number Expiration Date ND Delivery Driver/Supervisor 10 mL subcut 10 mL Assessment & Plan Assessment & Plan (1) Hypogonadism in male: Code(s): E29.1 - Testicular hypofunction Category: Medical Plan Two week in 10 week labs Orders: Orders Testosterone, Total 10 Weeks E29.1 - Testicular hypofunction Testosterone, Total 2 Weeks E29.1 - Testicular hypofunction AMB Testosterone Pellet Implant Today E29.1 - Testicular hypofunction Patient Instructions: Imaging studies, laboratory and physical exam results were discussed and reviewed in detail. No major barriers to patient understanding were identified. An opportunity to ask questions regarding the treatment plan was provided. All questions were answered. The patient expressed understanding and agreement with the above treatment plan. The patient is aware they should contact our office by phone for worsening of their current condition or the appearance of new urologic symptoms. Compliance is encouraged with any medications and followup testing that is ordered. It is a privilege to participate in the urologic care of your patient. If you have any questions or concerns regarding treatment for the above conditions, or other urologic issues, please do not hesitate to contact me. The office telephone contact is [phone]. This note is constructed using voice recognition software. While every effort has been made to ensure accuracy assembly press operator errors may have been included. Yours sincerely, Dr Willard Srinivasan MD, [facility] - Urology Providers of Expert, Compassionate Care for the Genitourinary System Coding Level of Care Code Procedure Only Diagnoses Hypogonadism in male E29.1
== END 2024-03-11 13:37 | disposition home or self-care (01) ==
LOC: HO.HUSH 12:44
PROVIDERS: PCP Internal Medicine; Visit Provider Urology
DX: E29.1 Testicular hypofunction (principal)
CPT/HCPCS: 11980

== ENCOUNTER → 2024-03-11 12:44 | Outpatient (BNVA) | payer MEDICARE, SELFPAY | PROVIDERS: PCP Internal Medicine; Visit Provider Urology | DX: E29.1 Testicular hypofunction (principal) | CPT/HCPCS: 11980; J3490 ==

== ENCOUNTER 2024-03-25 10:12 | Outpatient (REF) | payer MEDICARE, SELFPAY ==
[2024-03-25 13:28] LABS: Appearance Urine Clear; Color Urine Yellow; Glucose Urine UA 100 mg/dL (Negative); Leukocyte Esterase Urine Negative (Negative); Nitrite Urine Negative (Negative); Specific Gravity - Urine 1.015 (1.005-1.025); UMIC TRIGGER UA YES; Urine Blood Negative (Negative); Urine Ketones Negative (Negative); Urine Protein 100 (2+) mg/dL (Neg-Trace)
[2024-03-25 13:34] LABS: Bacteria Urine None Seen (None Seen); Hyaline Casts Urine 0-2 /LPF (0-2); RBC Urine 0-2 /HPF (0-2); Squamous Epithelial Cell Urine 0-2 /HPF (0-2); WBC Urine 0-5 /HPF (0-5)
[2024-03-25 14:19] LABS: Creatinine Urine 55.02 mg/dL; Total Protein Urine Random 63 mg/dL (<12)
[2024-03-25 14:19] LABS: Anion Gap 13 (12-20); Blood Urea Nitrogen 14 mg/dL (9-16); Calcium 9.8 mg/dL (8.4-10.2); Carbon Dioxide 26 mmol/L (22-29); Chloride 104 mmol/L (96-108); Estimated Glomerular Filt Rate > 60; Glucose Random 176 mg/dL (60-115); Potassium 5.2 mmol/L (3.3-5.1); Sodium 138 mmol/L (135-145)
[2024-03-30 01:02] LABS: Testosterone, Total 490 ng/dL (250-1100)
== END 2024-03-25 10:13 | disposition home or self-care (01) ==
LOC: HO.HMGCLDS 10:12
PROVIDERS: PCP Internal Medicine; Referring Provider Internal Medicine Hypertension Specialist; Visit Provider Urology
DX: N18.9 Chronic kidney disease, unspecified (principal); D64.9 Anemia, unspecified; E29.1 Testicular hypofunction
CPT/HCPCS: 36415; 80048; 81001; 82570; 84156; 84403

== ENCOUNTER 2024-04-07 09:24 | Outpatient (AMB) | payer MEDICARE, SELFPAY ==
[2024-04-07 09:26] VITALS: BP 120/64; PULSE 76; O2SAT 94; BMI 33.7
--- NOTE | 2024-04-07 09:26 | HO.NEPHOV ---
Vital Signs 04/07/24 09:26 Height 5 ft 10 in Weight 235 lb BMI 33.7 BP 120/64 Blood Pressure Location Lt brachial Position Sitting Pulse 76 Pulse Source Pulse Oximeter Pulse Oximetry (%) 94 Oxygen Delivery Method Room Air Intake Visit Reasons: 6 mon follow up/ Conf Operations Manager Station Required: No Accompanied by: Spouse Allergies oxycodone [OXYCODONE] Adverse Reaction (Intermediate, Verified 04/07/24 09:31) HALLUCINATIONS, DIZZINESS simvastatin Adverse Reaction (Intermediate, Verified 04/07/24 09:31) myalgias elevated CPK Medication List - Last Reconciled 04/07/24 by Filiberto Canales MD albuterol sulfate 90 mcg/actuation 2 puffs PO Q4H PRN blood sugar diagnostic As directed cholecalciferol (vitamin D3) 25 mcg PO DAILY doxepin 1 - 2 caps PO BEDTIME ferrous sulfate 324 mg PO DAILY fexofenadine 180 mg PO DAILY flash glucose sensor (FreeStyle Yahir 2 Sensor kit) As directed fluticasone propion-salmeterol 250-50 mcg/dose (Advair Diskus) 1 inh inhalation BID gabapentin 800 mg PO TID glipizide 20 mg PO DAILY@1800 insulin syringe-needle U-100 As directed losartan mg PO metformin 1,000 mg PO BID metoprolol succinate ER 25 mg PO DAILY nystatin 100,000 units topical BID omeprazole 40 mg PO BID pen needle, diabetic As directed rivaroxaban (Xarelto) 1 tab PO QPM rosuvastatin 40 mg PO DAILY tiotropium bromide (Spiriva with HandiHaler) 1 cap inhalation DAILY tirzepatide (Mounjaro) 15 mg subcut QWEEK triamcinolone acetonide 0.1% 0.1 appl topical BID HPI Comments Details: Charlie is a 67-year-old man with a history of longstanding hypertension obesity and CKD. He had some leg ulcers which have resolved. He continues have each with rash which has not changed after holding the Lasix 06/11/23; Doing well. NO new issues Rash is better 10/08/23 Maunjaro has been added 04/07/24 Doing well Lost 35 lbs with maunjaro [facility] Medical History (Updated 04/07/24 @ 09:45 by Filiberto Canales MD) Personal history of nicotine dependence Type 2 diabetes mellitus Erectile dysfunction Hypogonadism in male Nocturnal hypoxemia COVID-19 vaccine series completed Morbid obesity Sialolithiasis of submandibular gland History of cardioversion Respiratory failure with hypoxia and hypercapnia COPD (chronic obstructive pulmonary disease) TAE (obstructive sleep apnea) Obesity (BMI 30-39.9) Cervical disc herniation Gynecomastia Hypogonadism Asthma Atrial fibrillation Hyperlipidemia Hypertension Diabetes Surgical History Hx of shoulder surgery History of esophagogastroduodenoscopy (EGD) H/O colonoscopy Hx of neck surgery H/O prior ablation treatment (04/09/20) History of penile implant H/O vasectomy H/O umbilical hernia repair History of cholecystectomy H/O arthroscopic knee surgery H/O knee surgery Hx of appendectomy Family History Father No problems noted. Mother No problems noted. Social History Household Members: Spouse Housing: House Are you a primary primary care pediatrician to a significant other at home: No Do you presently have visiting nurse or other home services: No Alcohol intake: current Alcohol intake frequency: a few times a month Alcohol type: beer Patient Tobacco Use Status: Former Tobacco user Tobacco use type: Cigarette Cigarette Packs Per Day: 2.5 Cigarettes Per Day: 50.0 Years Smoked: 40 Physical Exam Vital Signs: Last Vital Signs Pulse 76 04/07/24 09:26 BP 120/64 04/07/24 09:26 Pulse Ox 94 04/07/24 09:26 Oxygen Delivery Method Room Air 04/07/24 09:26 BMI result Body Mass Index 33.7 Const General: comfortable; No acute distress Orientation/consciousness: patient oriented x3 Eyes General: appearance normal, both eyes and all related structures Visual Barboza: normal visual barboza by confrontation Neck Neck: Yes supple and Yes no JVD Resp Effort & Inspection: normal respiratory effort and respiratory effort not decreased Auscultation: rhonchi Cardio Palpation: no palpable S3 and no palpable S4 Heart sounds: no rubs GI Inspection: Yes normal to inspection Palpation (GI): Soft to palpation Percussion: Yes normal to percussion Auscultation: normal bowel sounds General: Yes no CVA tenderness Back/Spine/Pelvis Back: no CVA tenderness Skin General skin exam: no petechiae and no purpura Neuro General: patient oriented x3 and no focal motor deficits Extrem General: No clubbing and No edema Results Reviewed Nephrology Results: Hgb 13.1 g/dl (14.0-18.0) L 11/26/23 Sodium 138 mmol/L (135-145) 03/25/24 Potassium 5.2 mmol/L (3.3-5.1) H 03/25/24 Chloride 104 mmol/L (96-108) 03/25/24 Carbon Dioxide 26 mmol/L (22-29) 03/25/24 BUN 14 mg/dL (9-16) 03/25/24 Creatinine 0.89 mg/dL (0.5-1.4) 03/25/24 Calcium 9.8 mg/dL (8.4-10.2) 03/25/24 Urine Protein 100 (2+) mg/dL (Neg-Trace) H 03/25/24 Urine Creatinine 55.02 mg/dL 03/25/24 Assessment & Plan Assessment & Plan (1) Anemia: Code(s): D64.9 - Anemia, unspecified Category: Medical Plan: Primarily to iron deficiency. 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 Renal function close to baseline. Continue to avoid nephrotoxic agents and hypotension. (3) Hyperkalemia: Code(s): E87.5 - Hyperkalemia Category: Medical Plan: Mild Stay on low K diet Plan Cause for the itching and rash seems unclear. Maybe related to laundry detergent. Rash improved after changing the detergent.Encouraged him to avoid gluten to see there is any improvement in the rash. Rash has improved. Orders: Orders Complete Blood Count no Diff 6 Months E87.5 - Hyperkalemia, N18.9 - Chronic kidney disease, unspecified Basic Metabolic Panel 6 Months E87.5 - Hyperkalemia, N18.9 - Chronic kidney disease, unspecified Coding Level of Care Code Est Pt Level 4 (53113) Diagnoses Anemia D64.9 CKD (chronic kidney disease) N18.9 Hyperkalemia E87.5
== END 2024-04-07 09:56 | disposition home or self-care (01) ==
PROVIDERS: PCP Internal Medicine; Visit Provider Internal Medicine Hypertension Specialist
DX: N18.2 Chronic kidney disease, stage 2 (mild) (principal); E87.5 Hyperkalemia; D50.9 Iron deficiency anemia, unspecified
CPT/HCPCS: 99214

== ENCOUNTER → 2024-04-07 09:24 | Outpatient (BNVA) | payer MEDICARE, SELFPAY | PROVIDERS: PCP Internal Medicine; Visit Provider Internal Medicine Hypertension Specialist | DX: N18.2 Chronic kidney disease, stage 2 (mild) (principal); E87.5 Hyperkalemia; D64.9 Anemia, unspecified | CPT/HCPCS: 99212 ==

== ENCOUNTER 2024-04-24 11:06 | Outpatient (REF) | payer MEDICARE, SELFPAY ==
[2024-04-29 17:27] LABS: Testosterone, Total 464 ng/dL (250-1100)
== END 2024-04-24 11:07 | disposition home or self-care (01) ==
LOC: HO.HMGCLDS 11:06
PROVIDERS: PCP Internal Medicine; Visit Provider Urology
DX: E29.1 Testicular hypofunction (principal)
CPT/HCPCS: 36415; 84403

== ENCOUNTER 2024-05-19 10:15 | Outpatient (AMB) | payer MEDICARE, SELFPAY ==
[2024-05-19 10:29] VITALS: BP 140/70; PULSE 69; O2SAT 95; BMI 32.4
--- NOTE | 2024-05-19 10:29 | MHC.OFFVIS ---
Vital Signs 05/19/24 10:29 Height 5 ft 10 in Weight 225 lb 15.581 oz BMI 32.4 BP 140/70 H Blood Pressure Location Lt brachial Position Sitting Pulse 69 Pulse Source Pulse Oximeter Pulse Oximetry (%) 95 Oxygen Delivery Method Room Air Intake Visit Reasons: Obstructive sleep apnea Intake Note: pt is here for follow up and states he is doing well. Wharf Attendant Required: No Allergies oxycodone [OXYCODONE] Adverse Reaction (Intermediate, Verified 05/19/24 12:00) HALLUCINATIONS, DIZZINESS simvastatin Adverse Reaction (Intermediate, Verified 05/19/24 12:00) myalgias elevated CPK Medication List - Last Reconciled 05/19/24 by Gerardo Cabrera MD albuterol sulfate 90 mcg/actuation 2 puffs PO Q4H PRN blood sugar diagnostic As directed cholecalciferol (vitamin D3) 25 mcg PO DAILY doxepin 1 - 2 caps PO BEDTIME fexofenadine 180 mg PO DAILY flash glucose sensor (FreeStyle Yahir 2 Sensor kit) As directed fluticasone propion-salmeterol 250-50 mcg/dose (Advair Diskus) 1 inh inhalation BID gabapentin 800 mg PO TID hydroxyzine HCl 50 mg PO QID insulin syringe-needle U-100 As directed losartan mg PO metformin 1,000 mg PO BID metoprolol succinate ER 25 mg PO DAILY nystatin 100,000 units topical BID omeprazole 40 mg PO BID pen needle, diabetic As directed rivaroxaban (Xarelto) 1 tab PO QPM rosuvastatin 40 mg PO DAILY tirzepatide (Mounjaro) 15 mg subcut QWEEK triamcinolone acetonide 0.1% 0.1 appl topical BID Do you need a note to return to daycare/school/sports/work: No HPI HPI Obstructive sleep apnea: Details: THIS 68 YEARS OLD GENTLEMAN IS A CASE OF OBESITY AND OBSTRUCTIVE SLEEP APNEA. IN ADDITION HIS COMORBIDITIES INCLUDE COPD ,HYPERTENSION, ARTERIOSCLEROTIC HEART DISEASE, PERIPHERAL NEUROPATHY, AND CHRONIC ALLERGIC RHINITIS. FOR HIS DIABETES AND OBESITY HE HAS BEEN STARTED ON TIRZEPATIDE ( MOUNJARO ) INJECTION Q 1 WEEK, AND IN THE LAST FEW MONTHS HE HAS LOST SIGNIFICANT AMOUNT OF WEIGHT. OVERALL DURING THE PAST 1 YEAR HE HAS LOST ABOUT 65 LB OF WEIGHT. HE IS KNOWN CASE OF OBSTRUCTIVE SLEEP APNEA, WHICH IS WELL TREATED WITH THE USE OF CPAP, HE USES EVERY NIGHT FOR 9-10 HOURS AND SLEEPS WELL. HAS NOCTURNAL HYPOXEMIA AND HE NEEDS O2 SUPPLEMENTATION ALONG WITH THE CPAP. COMPLAINS OF DRYNESS OF THE MOUTH WHEN HE WAKES UP IN THE MORNING, ALSO HIS COMPLAINS OF HISSING SOUND DUE TO THE AIR LEAK . HE IS QUESTIONING IF HE STILL NEEDS TO USE THE CPAP OR OXYGEN AT NIGHT. [facility] Medical History Personal history of nicotine dependence Type 2 diabetes mellitus Erectile dysfunction Hypogonadism in male Nocturnal hypoxemia COVID-19 vaccine series completed Morbid obesity Sialolithiasis of submandibular gland History of cardioversion Respiratory failure with hypoxia and hypercapnia COPD (chronic obstructive pulmonary disease) TAE (obstructive sleep apnea) Obesity (BMI 30-39.9) Cervical disc herniation Gynecomastia Hypogonadism Asthma Atrial fibrillation Hyperlipidemia Hypertension Diabetes Surgical History Hx of shoulder surgery History of esophagogastroduodenoscopy (EGD) H/O colonoscopy Hx of neck surgery H/O prior ablation treatment (04/09/20) History of penile implant H/O vasectomy H/O umbilical hernia repair History of cholecystectomy H/O arthroscopic knee surgery H/O knee surgery Hx of appendectomy Family History Father No problems noted. Mother No problems noted. Social History Household Members: Spouse Housing: House Are you a primary critical care physician assistant to a significant other at home: No Do you presently have visiting nurse or other home services: No Alcohol intake: current Alcohol intake frequency: a few times a month Alcohol type: beer Patient Tobacco Use Status: Former Tobacco user Tobacco use type: Cigarette Cigarette Packs Per Day: 2.5 Cigarettes Per Day: 50.0 Years Smoked: 40 Review of Systems Const All systems reviewed & are unremarkable except as noted in HPI and below Eyes Reports no additional complaints ENT Reports nasal congestion (Mild intermittent) Card Denies chest pain, Reports irregular heart rhythm, Reports leg edema (Mild) and Reports dyspnea on exertion Resp Reports as per HPI and Reports dyspnea on exertion GI Reports no additional complaints Reports no additional complaints Musc Reports back pain and Reports arthralgias Skin/Breast Reports rash (Anterior abdominal wall) Neuro Reports no additional complaints Psych Reports no additional complaints Physical Exam Vital Signs: Last Vital Signs Pulse 69 05/19/24 10:29 BP 140/70 H 05/19/24 10:29 Pulse Ox 95 05/19/24 10:29 Oxygen Delivery Method Room Air 05/19/24 10:29 BMI result Body Mass Index 32.4 Const General: comfortable, no acute distress, alert and awake Orientation/consciousness: patient oriented x3 HEENT Head: Yes normal to inspection General nose exam: No nasal polyps present and No nasal discharge present Face and sinus: Yes sinuses nontender Mouth: oropharynx normal Throat: Yes posterior oropharynx normal Eyes General: appearance normal, both eyes and all related structures Neck Neck: Yes normal visual inspection, Yes no lymphadenopathy, Yes trachea midline and Yes no JVD Thyroid: Thyroid normal Chest Chest palpation & inspection: normal inspection of the chest, normal palpation of entire chest wall and no tenderness Resp Other: Percussion note not perceptible because of thick chest wall. Breath sounds are distant but equal on both sides. No wheezes rhonchi or crepitations Cardio Palpation: PMI not normal (Not palpable) Rate: regular rate Rhythm: regular rhythm Heart sounds: no gallops and no murmurs GI Palpation (GI): Soft to palpation, nontender, No hepatosplenomegaly present, no masses and Other GI palpation findings present (Abdomen is grossly obese and protuberant) Auscultation: normal bowel sounds Back/Spine/Pelvis Thoracic/Lumbar Spine: thoracic and lumbar spine normal to inspection and thoraco-lumbar ROM limited Skin General skin exam: dry skin and other (Few scattered, excoriations on the upper abdominal wall) Neuro General: patient oriented x3, No gait normal (Impaired due to arthritis, uses cane) and no focal motor deficits Cranial nerves: Yes CN's II-XII intact bilaterally Extrem General: Yes normal to inspection, Yes no calf tenderness and Yes edema (MILD PITTING EDEMA) Psych Appearance: grossly normal and well kempt Speech and movement: Normal speech and movement present Results Reviewed Results Reviewed: COMPLIANCE REPORT IS REVIEWED AND HE HAS USED. 30/30 NIGHTS, 100% AVERAGE USAGE PER NIGHT 10 HOURS 20 MINUTES. HE IS ON CPAP 12 CM USING NASAL PILLOWS. THERE IS SIGNIFICANT AIR LEAK. RESIDUAL AHI ONLY 1.1. Assessment & Plan Assessment & Plan (1) Obesity (BMI 30-39.9): Comment: HE DOES HAVE MORBID OBESITY BUT CURRENTLY ON ANTI OBESITY MED, MOUNJERO, HE HAS LOST SOME WEIGHT. ACTUALLY HE HAS LOST ABOUT 65 LB OF WEIGHT DURING THE PAST 1 YEAR. HE IS HAPPY WITH THE ANTI OBESITY MED. Code(s): E66.9 - Obesity, unspecified Category: Medical Plan: ADVISE THAT HE NEEDS TO CONTINUE LOSING MORE WEIGHT (2) TAE (obstructive sleep apnea): Comment: HE HAS HISTORY OF OBSTRUCTIVE SLEEP APNEA, WHICH IS WELL CONTROLLED WITH THE USE OF CPAP. VERY COMPLIANT TO USE OF CPAP,,PLUS O2 AT NIGHT , AND IS BENEFITTING . HE HAS AIR LEAK PROBLEM, WHICH IS CAUSING DRYNESS OF HIS MOUTH Code(s): G47.33 - Obstructive sleep apnea (adult) (pediatric) Category: Medical Plan: ADVISED TO CONTINUE USING IT EVERY NIGHT. ORDER A CHINSTRAP FOR HIM . TO USE WITH THE NASAL PILLOWS. ALSO ADVISED TO MAKE SURE TO USE PROPER AMOUNT OF HUMIDIFICATION. I ADVISED HIM TO KEEP ON USING THE CPAP AT THIS TIME, AND WHEN HE IS AROUND ARE BELOW 200 LB THEN WE WILL DO A HOME-BASED SLEEP STUDY TO SEE IF HE STILL HAS SLEEP APNEA/ HYPOXEMIA (3) COPD (chronic obstructive pulmonary disease): Comment: MODERATELY SEVERE, CONTROLLED WITH CURRENT REGIMEN. HE DOES HAVE SHORTNESS OF BREATH ON EXERTION SUCH WALKING. THIS IS DUE TO COMBINATION OF OBESITY, OBSTRUCTIVE AND RESTRICTIVE LUNG DISEASE. Code(s): J44.9 - Chronic obstructive pulmonary disease, unspecified Category: Medical Plan: CONTINUE ADVAIR [id number] 1 INHALATION B.I.D. AND ALBUTEROL 2 PUFFS Q 6 HOURS P.R.N.. (4) Nocturnal hypoxemia: Comment: HE HAS NOCTURNAL HYPOXEMIA PART OF TAE/SLEEP-RELATED HYPOVENTILATION. Code(s): G47.34 - Idiopathic sleep related nonobstructive alveolar hypoventilation Category: Medical Plan: AT THIS TIME CONTINUE USING O2 2 L/MINUTE WHEN THE WEIGHT IS BELOW 200 LB THEN WE WILL REPEAT A HOME-BASED SLEEP STUDY, BEFORE WE DECIDE WHETHER WE SHOULD. DISCONTINUE OXYGEN ARE NOT Coding Level of Care Code Est Pt Level 4 (84976) Diagnoses Obesity (BMI 30-39.9) E66.9 TAE (obstructive sleep apnea) G47.33 COPD (chronic obstructive pulmonary disease) J44.9 Nocturnal hypoxemia G47.34
== END 2024-05-19 11:06 | disposition home or self-care (01) ==
PROVIDERS: PCP Internal Medicine; Visit Provider Internal Medicine
DX: E66.9 Obesity, unspecified (principal); G47.33 Obstructive sleep apnea (adult) (pediatric); J44.9 Chronic obstructive pulmonary disease, unspecified; G47.34 Idiopathic sleep related nonobstructive alveolar hypoventilation
CPT/HCPCS: 99214

== ENCOUNTER → 2024-05-19 10:15 | Outpatient (BNVA) | payer MEDICARE, SELFPAY | PROVIDERS: PCP Internal Medicine; Visit Provider Internal Medicine | DX: G47.33 Obstructive sleep apnea (adult) (pediatric) (principal); G47.34 Idiopathic sleep related nonobstructive alveolar hypoventilation; J44.9 Chronic obstructive pulmonary disease, unspecified; E66.9 Obesity, unspecified; Z68.32 Body mass index [BMI] 32.0-32.9, adult | CPT/HCPCS: 99212 ==

== ENCOUNTER 2024-05-20 08:54 | Outpatient (REF) | payer MEDICARE, SELFPAY ==
--- NOTE | ~2024-05-20 | CT_ITS ---
CLINICAL HISTORY: Z87.891 - Personal history of nicotine dependence CT lung cancer screening (LDCT) Comparison: 05/14/2023 Technique: Axial CT images of the chest using low-dose technique. Referring provider counseled the patient on shared decision-making for LDCT screening. Additional counseling was provided on smoking cessation. Effective radiation dose total: DLP 65.8 mGycm, CTDIvol 2 mGy. Findings: Lung: Mild emphysema. 4 mm nodule of the right lower lobe series 4, image 28. There are additional micro nodules. Coronary artery calcifications: None Limited upper abdomen: Unremarkable Other: None Impression: LungRADS 2 - Benign Appearance: Continue annual screening with low dose Chest CT in 12 months. ##L2# Category 1: Normal; continue annual screening Category 2: Benign appearance or behavior, continue annual screening Category 3: Probably benign, [address] recommended Category 4A: Suspicious, [address] recommended; may consider PET/CT Category 4B: Suspicious, Additional diagnostics and/or tissue sampling recommended Category 4X: Suspicious, Additional diagnostics and/or tissue sampling recommended Category 0: Recalls (incomplete screen due to Incomplete coverage, Noise, Respiratory motion, Expiration, Obscured by acute abnormality) This document has been electronically signed by: Jordan Buck MD on 05/21/2024 06:59:39
== END 2024-05-20 08:55 | disposition home or self-care (01) ==
LOC: HO.CT 08:54
PROVIDERS: PCP Internal Medicine; Visit Provider Physician Assistant Medical
DX: Z12.2 Encounter for screening for malignant neoplasm of respiratory organs (principal); Z87.891 Personal history of nicotine dependence
CPT/HCPCS: 71271

== ENCOUNTER → 2024-05-20 08:57 | Outpatient (BNV) | payer MEDICARE, SELFPAY | PROVIDERS: PCP Internal Medicine; Visit Provider Nuclear Medicine | DX: Z87.891 Personal history of nicotine dependence (principal) | CPT/HCPCS: 71271 ==

== ENCOUNTER 2024-06-05 09:39 | Outpatient (AMB) | payer MEDICARE, SELFPAY ==
--- NOTE | 2024-06-05 09:39 | A.OFFVIS_ITS ---
Intake Visit Reasons: Testopel Insertion Intake Note: Patient is present for TESTOPEL INSERTION Urology Medication:NONE Antibiotic Allergy:SIMVASTATIN Blood Thinner:RIVAROXABAN Color Weigher Required: No Allergies oxycodone [OXYCODONE] Adverse Reaction (Intermediate, Verified 06/05/24 09:40) HALLUCINATIONS, DIZZINESS simvastatin Adverse Reaction (Intermediate, Verified 06/05/24 09:40) myalgias elevated CPK HPI Comments Details: Jaime is a pleasant male. He is a patient of Dr. Oleary. He is here for the following urologic conditions - hypogonadism Here for testosterone pellet placement 6 pellets placed Repeat lab work at 2 weeks and 10 weeks Repeat placement at 12 weeks Labs 1st cycle 2wk 490 10wk 464 Has lost 50 lb from Mounjaro CPT 32314 Subcutaneous hormone pellet implantation (implantation of testosterone pellets beneath the skin) [facility] - [id number] 6 pellets 75mg Patient in lateral jackknife - right side up The implantation area is the upper outer quadrant of the hip Cleanse the area with Betadine? swabs Place fenestrated drape over the patient, revealing the implantation area. Patrick anticipated trocar tract Create a skin wheal for scalpel insertion with local anesthetic Inject local anesthetic (lidocaine HCl 2%) to begin hydrodissection in subcutaneous fat layer. Complete hydrodissection of subcutaneous fat layer, and be sure to numb entire length of trocar tract Insert the scalpel straight down and to the plastic tip Insert trocar with sharp-ended stylet. Enter downward at a 45? angle and into the subcutaneous fat layer, flatten out the trocar, stopping to leave only the trocar well exposed. Forceps used to load pellets. Blunt stylet used to advance pellets in a V pattern with 5 pellets in each load. Once completed area cleansed with alcohol wipes Incision sealed using Steri-Strips? for closure. Area covered with a 2 x2 gauze, folded in half and secured by Tegaderm? Low testosterone Previously failed injections and gel and patches Gel did not bring T high enough Injections painful Patches caused dermatitis Trial testosterone pellets [facility] Medical History (Updated 05/22/24 @ 08:56 by Mercy Youssef PA-C) Hyperplastic polyps of stomach Anemia Atrial fibrillation Hypertension Hyperlipidemia Type 2 diabetes mellitus Respiratory failure with hypoxia and hypercapnia COPD (chronic obstructive pulmonary disease) Nocturnal hypoxemia TAE (obstructive sleep apnea) Obesity (BMI 30-39.9) Personal history of nicotine dependence Cervical disc herniation Erectile dysfunction Gynecomastia Hypogonadism in male Sialolithiasis of submandibular gland COVID-19 vaccine series completed Surgical History (Updated 05/22/24 @ 08:53 by Mercy Youssef PA-C) History of cardiac ablation for atrial fibrillation History of umbilical hernia repair History of vasectomy History of colonoscopy History of appendectomy History of uvulopalatopharyngoplasty History of repair of right rotator cuff History of right knee surgery History of cardioversion History of cervical discectomy History of esophagogastroduodenoscopy (EGD) H/O prior ablation treatment (04/09/20) History of penile implant History of cholecystectomy Family History Father No problems noted. Mother No problems noted. Social History Household Members: Spouse Housing: House Are you a primary wound care coordinator to a significant other at home: No Do you presently have visiting nurse or other home services: No Alcohol intake: current Alcohol intake frequency: a few times a month Alcohol type: beer Patient Tobacco Use Status: Former Tobacco user Tobacco use type: Cigarette Cigarette Packs Per Day: 2.5 Cigarettes Per Day: 50.0 Years Smoked: 40 Review of Systems Const Denies chills and Denies fever(s) Card Reports no additional complaints and Denies syncope Resp Denies cough GI Denies abdominal pain and Denies heartburn Reports as per HPI and Denies change in libido Neuro Denies syncope Psych Denies change in libido Endo Denies change in libido Physical Exam Const General: cooperative, healthy appearing, comfortable and no acute distress Orientation/consciousness: patient oriented x3 HEENT Face and sinus: Yes normal facial exam Mouth: moist mucous membranes Neck Neck: Yes normal visual inspection, Yes full ROM and Yes trachea midline Chest Chest palpation & inspection: normal inspection of the chest Resp Effort & Inspection: normal respiratory effort, able to speak in complete sentences and no respiratory distress GI Inspection: Yes normal to inspection Back/Spine/Pelvis Cervical Spine: normal cervical lordosis Thoracic/Lumbar Spine: thoracic and lumbar spine normal to inspection Skin General skin exam: no rashes or lesions noted Neuro General: patient oriented x3, gait normal, tone normal and moves all extremities Extrem General: Yes normal to inspection and Yes capillary refill normal Assessment & Plan Assessment & Plan (1) Hypogonadism in male: Code(s): E29.1 - Testicular hypofunction Category: Medical (2) Erectile dysfunction: Code(s): N52.9 - Male erectile dysfunction, unspecified Category: Medical Plan Lab work 2 weeks and 10 weeks Twelve week follow-up testosterone pellet Orders: Orders Testosterone, Total 10 Weeks E29.1 - Testicular hypofunction Testosterone, Total 2 Weeks E29.1 - Testicular hypofunction Medications: New testosterone (Testopel) 75 mg implant ONCE 6 ea 5RF Patient Instructions: This note is constructed using voice recognition software. While every effort has been made to ensure accuracy software engineer errors may have been included. Imaging studies, laboratory and physical exam results were discussed and reviewed in detail. No major barriers to patient understanding were identified. An opportunity to ask questions regarding the treatment plan was provided. All questions were answered. The patient expressed understanding and agreement with the above treatment plan. The patient is aware they should contact our office by phone for worsening of their current condition or the appearance of new urologic symptoms. Compliance is encouraged with any medications and followup testing that is ordered. It is a privilege to participate in the urologic care of your patient. If you have any questions or concerns regarding treatment for the above conditions, or other urologic issues, please do not hesitate to contact me. The office telephone contact is [phone]. Sincerely, Dr Willard Srinivasan MD, [facility] - Urology Compassionate Specialist Care for the Genitourinary System Coding Level of Care Code Est Pt Level 3 (62159) Complex EM visit Add On G2211 Diagnoses Hypogonadism in male E29.1 Erectile dysfunction N52.9
== END 2024-06-05 10:31 | disposition home or self-care (01) ==
PROVIDERS: PCP Internal Medicine; Visit Provider Urology
DX: E29.1 Testicular hypofunction (principal); N52.9 Male erectile dysfunction, unspecified
CPT/HCPCS: 99213; G2211

== ENCOUNTER → 2024-06-05 09:39 | Outpatient (BNVA) | payer MEDICARE, SELFPAY | PROVIDERS: PCP Internal Medicine; Visit Provider Urology | DX: E29.1 Testicular hypofunction (principal); N52.9 Male erectile dysfunction, unspecified | CPT/HCPCS: 99212; J3490 ==

== ENCOUNTER 2024-06-13 10:43 | Outpatient (REF) | payer MEDICARE, SELFPAY ==
--- OUTSIDE RECORDS SUMMARY | 2024-06-13 11:45 | XMS_ITS | Encounter Summary ---
Author Organization [employer] Address [address] [place] [address] 7 [place] [address] Care Team Providers Care Bike Shop Manager Name Role Phone Jeanna Oleary MD Primary Care Provider [phone] Reason for Referral * Consultation (Routine) - Pending Review Specialty Diagnoses / Procedures Referred By Contac t Referred To Contact Pharmacy Diagnoses Type 2 diabetes mellitus with hyperglycemia, with long-term current use of insulin (CMS/HCC) Jeanna Oleary MD [address] [place] [address] Phone: tel: fax: Referral ID Status Reason Start Date Expiration Date Visits Requested Visits Authorized [id number] Pending Review Consult and Treat 05/28/2024 05/28/2025 6 6 Encounter Details Date Type Department Care Team (Late st Contact Info) Description 05/28/2024 Orders Only [facility] MED & PEDS [address] [place] [address] Jeanna Oleary MD [address] [place] [address] Type 2 diabetes mellitus with hyperglycemia, with long-term current use of insulin (CMS/HCC) (Primary Dx) Social History Tobacco Use Types Packs/Day Years Used Date Smoking Tobacco: Former Cigarettes Smokeless Tobacco: Never Alcohol Use Standard Drinks/Week Comments Yes 3 (1 standard drink = 0.6 oz pur e alcohol) Depression Answer Date Recorded Patient Health Questionnaire-9 Score 0 11/23/2022 Housing Stability Answer Date Recorded What is your housing situation today? I have danielle martines 02/21/[address] you li ve. Do you have problems with any of the following? None of the above 02/21/2023 Food Insecurity Answer Date Recorded Within the past 12 months, y ou worried that your food would run out before you got money to buy more: Never True 02/21/2023 Within the past 12 months,th e food you bought just didn't last and you didn't have enough money to get more: Never True Transportation Answer Date Recorded In the past 12 months, has l ack of transportation kept you from medical appts, meetings, work or from getting things needed for daily living? No 02/21/2023 Utilities Answer Date Recorded In the past 12 months, has t he electric, gas, oil or water company threatened to shut off services in your home? No 02/21/2023 Depression Answer Date Recorded Patient Health Questionnaire-2 Score 0 11/23/2022 Sex and Gender Information Value Date Recorded Sex Assigned at Male 03/06/2022 10:31 AM EDT Legal Sex Male 10:31 AM EDT Gender Identity Male 03/06/2022 10:31 AM EDT Sexual Orientation Straight 03/06/2022 10 :31 AM EDT documented as of this encounter Plan of Treatment Upcoming Encounters Date Type Department Care Team (Late st Contact Info) Description 06/16/2024 9:30 AM EST Medication Management [facility] MED & PEDS [address] [place] [address] Estefanía Cervantes, PharmD [address] [place] [address] 06/16/2024 10:00 AM EST Office Visit [facility] MED & PEDS [address] [place] [address] Jeanna Oleary MD [address] [place] [address] Scheduled Referrals Name Type Priority Associated Diagnoses Orde r Schedule Referral to Pharmacy CDTM Outpatient Referral Routine Type 2 diabetes mellitus with hyperglycemia, with long-term current use of insulin ([facility]) Ordered: 05/28/2024 documented as of this encounter Visit Diagnoses Diagnosis Type 2 diabetes mellitus with hyperglycemia, with long-term current use of insulin ([facility])- Primary documented in this encounter Additional Health Concerns Assessment Noted Time PHQ-9 Depression Total Score: 0 11/24/19 23 10:27 AM EDT documented as of this encounter Care Teams Bike Shop Manager Relationship Specialty Start Date End Date Jeanna Oleary MD [address] [place] [address] PCP - General Internal Medicine 12/19/16 documented as of this encounter
--- OUTSIDE RECORDS SUMMARY | 2024-06-13 11:45 | XMS_ITS | Encounter Summary ---
Author Organization [employer] Address [address] [place] [address] 7 [place] [address] Care Team Providers Care Security Compliance Specialist Name Role Phone Jeanna Oleary MD Primary Care Provider [phone] Estefanía Cervantes PharmD Unavailable [phone] Reason for Referral * Consultation (Routine) - Authorized Specialty Diagnoses / Procedures Referred By Contac t Referred To Contact Cardiology Diagnoses Atrial fibrillation with rapid ventricular response (CMS/HCC) Jeanna Oleary MD [address] [place] [address] Phone: tel: fax: Erasmo Daily MD [address] [place] [address] Phone: tel: fax: Referral ID Status Reason Start Date Expiration Date Visits Requested Visits Authorized [id number] Authorized Specialty Services Required 03/20/2025 1 1 Encounter Details Date Type Department Care Team (Late st Contact Info) Description 03/20/2024 Orders Only [facility] CH[facility] MED & PEDS [address] [place], [place] [phone] Jeanna Oleary MD [address] [place], [place] Atrial fibrillation with rapid ventricular response (CMS/HCC) (Primary Dx) Social History Tobacco Use [...] Description 06/16/2024 9:30 AM EST Medication Management [facility] MED & PEDS [address] [place] [address] Estefanía Crevantes, PharmD [address] [place] [address] 06/16/2024 10:00 AM EST Office Visit [facility] MED & PEDS [address] [place] [address] Jeanna Oleary MD [address] [place] [address] Scheduled Referrals Name Type Priority Associated Diagnoses Orde r Schedule Referral to Cardiology Outpatient Referral Routine Atrial fibrillation with rapid ventricular response (CMS/HCC) Expected: 03/20/2024 (Approximate), Expires: 03/20/2025 documented as of this encounter Visit Diagnoses Diagnosis Atrial fibrillation with rapid ventricular response (CMS/HCC)- Primary documented in this encounter Additional Health Concerns Assessment Noted Time PHQ-9 Depression Total Score: 0 11/24/19 23 10:27 AM EDT documented as of this encounter Care Teams Security Compliance Specialist Relationship Specialty Start Date End Date Jeanna Oleary MD [address] [place] [address] PCP - General Internal Medicine 12/19/16 Estefanía Cervantes PharmD [address] [place] [address] Pharmacist Internal Medicine 06/03/24 documented as of this encounter
--- OUTSIDE RECORDS SUMMARY | 2024-06-13 11:45 | XMS_ITS | Encounter Summary ---
Author Organization [employer] Address [address] [facility] 7t [place] [address] Care Team Providers Care Health Navigator Name Role Phone Jeanna Oleary MD Primary Care Provider [phone] Estefanía Cervantes PharmD Unavailable [phone] Reason for Visit * Reason Comments Med Refill Encounter Details Date Type Department Care Team ([facility] st Contact Info) Description 09/14/2023 Refill [facility] MED & PEDS [address] [place], [place] [phone] Jeanna Oleary MD [address] [place] [address] Type 2 diabetes mellitus without complications (CMS/HCC) Social History Tobacco Use Types Packs/Day Years [...] 9:30 AM EST Medication Management [facility] MED & PEDS [address] [place] [address] Estefanía Cervantes PharmD [address] [place] [address] 06/16/2024 10:00 AM EST Office Visit [facility] MED & PEDS [address] [place] [address] Jeanna Oleary MD [address] [place] [address] documented as of this encounter Visit Diagnoses Diagnosis Type 2 diabetes mellitus without complications (CMS/HCC) documented in this encounter Additional Health Concerns Assessment Noted Time PHQ-9 Depression Total Score: 0 11/24/19 23 10:27 AM EDT documented as of this encounter Care Teams Health Navigator Relationship Specialty Start Date End Date Jeanna Oleary MD [address] [place] [address] PCP - General Internal Medicine 12/19/16 Estefanía Cervantes, DayneD [address] [place] [address] Pharmacist Internal Medicine 06/03/24 documented as of this encounter
--- OUTSIDE RECORDS SUMMARY | 2024-06-13 11:45 | XMS_ITS | Encounter Summary ---
Author Organization [employer] Address [address] [facility] 7 [place] [address] Care Team Providers Care Marine Rigger Name Role Phone Jeanna Oleary MD Primary Care Provider [phone] Estefanía Cervantes PharmD Unavailable [phone] Reason for Visit * Consultation (Routine) - Pending Review Specialty Diagnoses / Procedures Referred By Contac t Referred To Contact Pharmacy Diagnoses Type 2 diabetes mellitus with hyperglycemia, with long-term current use of insulin (CMS/HCC) Jeanna Oleary MD [address] [place] [address] Phone: tel: fax: Referral ID Status Reason Start Date Expiration Date Visits Requested Visits Authorized [id number] Pending Review Consult and Treat 05/28/2024 05/28/2025 6 6 Encounter Details Date Type Department Care Team ([facility] st Contact Info) Description 06/03/2024 9:30 AM EST Telemedicine [facility] CHC MED & PEDS [address] [place] [address] Estefanía Cervantes, PharmD [address] [place] [address] Type 2 diabetes mellitus with hyperglycemia, with long-term current use of insulin (CMS/HCC) (Primary Dx); Benign hypertension Social History Tobacco Use Types Packs/Day Years [...] AM EDT documented as of this encounter Last Filed Vital Signs Vital Sign Reading Time Taken Comments Blood Pressure 118/79 06/03/2024 8:00 AM EST marvin e BP reading Pulse 78 06/03/2024 8:00 AM EST home BP reading Temperature - - Respiratory Rate - - Oxygen Saturation - - Inhaled Oxygen Concentration - - Weight - - Height - - Body Mass Index - - documented in this encounter Progress Notes * Estefanía Cervantes PharmD - 06/03/2024 9:30 AM EST Pharmacy Consult Visit Type: CDTM Pharmacist: Estefanía Cervantes PharmD Jaime Hamlin is a 68 y.o. year old patient here for new patient visit completed over the phone. Subjective History: General / Intake (updated 06/03/24) Allergies: is allergic to hydroxyzine. Read/Write: Yes, in Bur[place]ian Recent Hospitalizations: No Social History as reported by patient: Tobacco: Denies Alcohol: Current, occasionally Caffeine: Current, 1 cup of coffee, Coke Zero during the day Illicit drugs: Denies Diet: limiting carbs and portion sizes, doesn't eat as much due to GLP-1 Patient and is a long-time [employer] member Very knowledgeable about carbs, starches, veggies, etc Exercise: shoveling, general house work Adherence / patient self-management Uses weekly pill box for organization Has assistance from with managing medications Denies missed doses Refill history demonstrates adherence to all meds OTC medication, vitamin, supplement use: denies Type 2 Diabetes Previous patient of DM educator Only on [facility] now, sugars have been great and patient is down 72 lbs Have glipizide Just in case ; for example going to [place] in July for family birthday celebration, may use glipizide before any cheat food Denies any high readings in the past 2 weeks Pertinent negatives include polyuria, polydipsia, blurred vision CGM: Freestyle Yahir 2 This will be discontinued in January, change to 2 plus Wants to use phone rather than reader - [id number] denies experiencing hypoglycemia (<70mg/dL) Hypertension Patient aware of elevated potassium but reports this most recent one was never discussed with PCP or with renal Monitors BP daily, 118/79mmHg and HR 78bpm this morning Cutting 50mg of losartan in half, but med is available in 25mg tablet Pertinent negatives include chest pain, headache, blurry vision, dizziness Objective History: Treatment history/considerations: PMH: neuropathy, TAE, a. Fib, COPD, HTN, GERD, CKD 3a, osteoarthritis, obesity, T2DM, hyperlipidemia Medication: n/a Recent labs: K+ elevated 03/25/24 and LFTs due - CMP ordered 06/03/24 Albumin/creatinine ratio due - ordered 06/03/24 Vit B12 (if on metformin) due - ordered 06/03/24 Metformin package insert recommends monitoring every 2-3 yrs. Lab Results Component Value Date ALT 27 08/09/2022 AST 30 08/09/2022 LDLCHOLCAL 32 11/26/2023 TRIG 155 (H) 11/26/2023 K 5.2 (H) 03/25/2024 NA 138 03/25/2024 CREATININE 0.89 03/25/2024 EGFR >60 03/25/2024 HGBA1C 6.5 (A) 02/20/2024 HGBA1C 6.3 (A) 11/01/2023 HGBA1C 8.2 (A) 07/30/2023 CrCl (AdjBW)= 93 mL/min Recent blood pressure readings: BP Readings from Last 4 Encounters: 06/03/24 118/79 04/22/24 (!) 159/74 02/20/24 (!) 143/85 11/01/23 138/78 Pulse Readings from Last 4 Encounters: 06/03/24 78 04/22/24 80 02/20/24 92 11/01/23 84 Immunizations Due: Pharmacist reviewed immunization records today; no vaccination gaps exist at this time. Could consider checking Hepatitis B titers as 3rd dose of Hep B was considered invalid; pt is 68 y/o Preferred Pharmacy: [facility] [address] [id number] Assessment/Plan: Type 2 Diabetes Pharmacologic Therapy: Glipizide 5mg, 1 tablet twice daily before meals IF NEEDED - not currently taking Metformin 1000mg, 1 tablet twice daily Tirzepatide (Mounjaro) 15mg/0.5ml, inject 15mg weekly Additional recommendations per ADA: On aspirin: No, risk > benefit On statin: Yes, high intensity On ACEI/ARB: Yes Dental Exam in the past 6 mo: Yes - seeing oral surgeon for extractions and new dentures Eye Exam in the past 12 mo: Unknown Goals of Therapy per the ADA Standards of Medical Care in Diabetes Achieve A1c of < 7.0% while also minimizing episodes of hypoglycemia Plan: Freestyle Yahir 2 sensors will be discontinued later this year. Change to Yahir 2 plus sensors. Patient wishes to use smart phone going forward. Will submit another prior authorization if needed. When fillable, will call patient for Yahir anne marie teaching. Patient to get updated lab work next time they come to the health center. Education: Healthy diet and lifestyle. Discussed role of A1c monitoring, A1c and SMBG goals Reviewed risks of macro- and microvascular complications of uncontrolled DM. Reviewed signs, symptoms and treatments of hypoglycemia to which patient confirmed understanding. Hypertension Pharmacotherapy: Losartan 25mg, 1 tablet daily Metoprolol succinate 25mg, 1 tablet daily Goals of Therapy per JNC 8: Achieve BP <140/90mmHg Plan: Patient's at-home blood pressures have been within goal. K+ was elevated on 03/25/24. Will check levels again to ensure safety of continuing losartan. Re-sent losartan rx as 25mg 1 tablet daily as patient did not like cutting the 50mg tablets in half. Education: Counseling provided to SMBP daily & log results for review in follow up. Reviewed BP goals, patient instructed to call if extremes of BP are noted prior to next scheduled visit. documented in this encounter Plan of Treatment Upcoming Encounters Date Type Department Care Team (Late st Contact Info) Description 06/16/2024 9:30 AM EST Medication Management [facility] MED & PEDS [address] [place] [address] Estefanía Cervantes PharmD [address] [place] [address] 06/16/2024 10:00 AM EST Office Visit [facility] MED & PEDS [address] [place] [address] Jeanna Oleary MD [address] [place] [address] Scheduled Orders Name Type Priority Associated Diagnoses Orde r Schedule Comprehensive Metabolic Panel Lab Routine Type 2 diabetes mellitus with hyperglycemia, with long-term current use of insulin (CMS/HCC) Expected: 06/03/2024 (Approximate), Expires: 06/03/2025 Albumin, Random Urine W/Creatinine Lab Routine Type 2 diabetes mellitus with hyperglycemia, with long-term current use of insulin (CMS/HCC) Expected: 06/03/2024 (Approximate), Expires: 06/03/2025 Vitamin B12 Lab Routine Type 2 diabetes mellitus with hyperglycemia, with long-term current use of insulin (CMS/HCC) Expected: 06/03/2024 (Approximate), Expires: 06/03/2025 documented as of this encounter Visit Diagnoses Diagnosis Type 2 diabetes mellitus with hyperglycemia, with long-term current use of insulin (CMS/HCC)- Primary Benign hypertension Essential hypertension, benign documented in this encounter Additional Health Concerns Assessment Noted Time PHQ-9 Depression Total Score: 0 11/24/19 10:27 AM EDT documented as of this encounter Care Teams Marine Rigger Relationship Specialty Start Date End Date Jeanna Oleary MD [address] [place] [address] PCP - General Internal Medicine 12/19/16 Estefanía Cervantes PharmD [address] [place] [address] Pharmacist Internal Medicine 06/03/24 documented as of this encounter
--- OUTSIDE RECORDS SUMMARY | 2024-06-13 11:45 | XMS_ITS | Encounter Summary ---
Author Organization [employer] Address [address] [facility] 7 [place] [address] Care Team Providers Care Hot Metal Crane Operator Name Role Phone Jeanna Oleary MD Primary Care Provider [phone] Reason for Visit * Reason Comments Med Refill Encounter Details Date Type Department Care Team ([facility] st Contact Info) Description 05/14/2024 Refill [facility] MED & PEDS [address] [place], [place] [phone] Jeanna Oleary MD [address] [place] [address] Class 3 severe obesity due to excess calories without serious comorbidity with body mass index (BMI) of 40.0 to 44.9 in adult ([facility]); Type 2 diabetes mellitus with hyperglycemia, with long-term current use of insulin ([facility]) Social History Tobacco Use Types Packs/Day Years [...] Description 06/16/2024 9:30 AM EST Medication Management [facility] MED & PEDS [address] [place] [address] Estefanía Cervantes, PharmD [address] [place] [address] 06/16/2024 10:00 AM EST Office Visit [facility] MED & PEDS [address] [place] [address] Jeanna Oleary MD [address] [place] [address] documented as of this encounter Visit Diagnoses Diagnosis Class 3 severe obesity due to excess calories without serious comorbidity with body mass index (BMI) of 40.0 to 44.9 in adult ([facility]) Type 2 diabetes mellitus with hyperglycemia, with long-term current use of insulin ([facility]) documented in this encounter Additional Health Concerns Assessment Noted Time PHQ-9 Depression Total Score: 0 11/24/19 23 10:27 AM EDT documented as of this encounter Care Teams Hot Metal Crane Operator Relationship Specialty Start Date End Date Jeanna Oleary MD [address] [place] [address] PCP - General Internal Medicine 12/19/16 documented as of this encounter
--- OUTSIDE RECORDS SUMMARY | 2024-06-13 11:45 | XMS_ITS | Encounter Summary ---
Author Organization [employer] Address [address] [facility] 7t [place] [address] Care Team Providers Care Electrical & Instrumentation Supervisor Name Role Phone Jeanna Oleary MD Primary Care Provider [phone] Estefanía Cervantes PharmD Unavailable [phone] Encounter Details Date Type Department Care Team (Late st Contact Info) Description 11/07/2023 Orders Only [facility] CHC MED & PEDS [address] [place], [place] [phone] Jeanna Oleary MD [address] [place] [address] Type 2 diabetes mellitus with hyperglycemia, with long-term current use of insulin ([facility]) (Primary Dx) Social History Tobacco Use Types [...] Description 06/16/2024 9:30 AM EST Medication Management [facility] MED & PEDS [address] [place] [address] Estefanía Cervantes PharmD [address] [place] [address] 06/16/2024 10:00 AM EST Office Visit [facility] MED & PEDS [address] [place] [address] Jeanna Oleary MD [address] [place] [address] documented as of this encounter Visit Diagnoses Diagnosis Type 2 diabetes mellitus with hyperglycemia, with long-term current use of insulin ([facility])- Primary documented in this encounter Additional Health Concerns Assessment Noted Time PHQ-9 Depression Total Score: 0 11/24/19 23 10:27 AM EDT documented as of this encounter Care Teams Electrical & Instrumentation Supervisor Relationship Specialty Start Date End Date Jeanna Oleary MD [address] [place] [address] PCP - General Internal Medicine 12/19/16 Estefanía Cervantes PharmD [address] [place] [address] Pharmacist Internal Medicine 06/03/24 documented as of this encounter
--- OUTSIDE RECORDS SUMMARY | 2024-06-13 11:45 | XMS_ITS | Encounter Summary ---
Author Organization [employer] Address [address] [facility] 7 [place] [address] Care Team Providers Care Title Insurance Examiner Name Role Phone Jeanna Oleary MD Primary Care Provider [phone] Reason for Visit * Reason Onset Date Comments Referral 03/19/2024 Encounter Details Date Type Department Care Team ([facility] Contact Info) Description 03/19/2024 Telephone [facility] MEDICINE [address] [place] [address] Jeanna Oleary MD [address] [place] [address] Referral Social History Tobacco Use Types Packs/Day Years Used Date Smoking Tobacco: Former Cigarettes Smokeless Tobacco: Never Alcohol Use Standard Drinks/Week Comments Yes 3 (1 standard drink = 0.6 oz pur e alcohol) Depression Answer Date Recorded Patient Health Questionnaire-9 Score 0 11/23/2022 Housing Stability Answer Date Recorded What is your housing situation today? I have danielle martnies 02/21/[address] you li [...] AM EDT documented as of this encounter Miscellaneous Notes * Telephone Encounter - [place] - 03/19/2024 11:04 AM EST Tc from pt spouse requesting a referral to a new lumber inspector Cortez Daily MD- [address] [place] [address] [address] [place] [address] , [facility] due to pt switching insurances to [facility] current lumber inspector does not accept that insurance and will need to be referred elsewhere. [facility] insurance will be effective on 05/07/2024. documented in this encounter Plan of Treatment Upcoming Encounters Date Type Department Care Team (Late st Contact Info) Description 06/16/2024 9:30 AM EST Medication Management [facility] MED & PEDS [address] [place] [address] Estefanía Cervantes PharmD [address] [place] [address] 06/16/2024 10:00 AM EST Office Visit [facility] MED & PEDS [address] [place] [address] Jeanna Oleary MD [address] [place] [address] documented as of this encounter Visit Diagnoses Not on filedocumented in this encounter Additional Health Concerns Assessment Noted Time PHQ-9 Depression Total Score: 0 11/24/19 23 10:27 AM EDT documented as of this encounter Care Teams Title Insurance Examiner Relationship Specialty Start Date End Date Jeanna Oleary MD [address] [place] [address] PCP - General Internal Medicine 12/19/16 documented as of this encounter
--- OUTSIDE RECORDS SUMMARY | 2024-06-13 11:45 | XMS_ITS | Encounter Summary ---
Author Organization [employer] Address [address] [place] [address] 7 [place] [address] Care Team Providers Care Flight Steward Name Role Phone Jeanna Oleary MD Primary Care Provider [phone] Estefanía Cervantes PharmD Unavailable [phone] Reason for Referral * Consultation (Routine) - Closed Specialty Diagnoses / Procedures Referred By Contac t Referred To Contact Endocrinology Diagnoses Hypogonadism male Jeanna Oleary MD [address] [place] [address] Phone: tel: fax: [facility] [address] [place] [address] Phone: tel: fax: Referral ID Status Reason Start Date Expiration Date V isits Requested Visits Authorized [id number] Closed Specialty Services Required 10/11/2023 10/10/2024 1 1 Encounter Details Date Type Department Care Team (Late st Contact Info) Description 10/11/2023 Orders Only [facility] MED & PEDS [address] [place] [address] Jeanna Oleary MD [address] [place] [address] Hypogonadism male (Primary Dx) Social History Tobacco Use Types [...] Description 06/16/2024 9:30 AM EST Medication Management [facility] MED & PEDS [address] [place] [address] Estefanía Cervantes, PharmD [address] [place] [address] 06/16/2024 10:00 AM EST Office Visit [facility] MED & PEDS [address] [place] [address] Jeanna Oleary MD [address] [place] [address] Scheduled Referrals Name Type Priority Associated Diagnoses Order Schedule Referral to Endocrinology Outpatient Referral Routine Hypogonadism male Expected: 10/11/2023 (Approximate), Expires: 10/10/2024 documented as of this encounter Procedures Procedure Name Priority Date/Time Associated Diagnosis Comments TESTOSTERONE, TOTAL, MALES (ADULT), IA Routine 10/16/2023 2:12 PM EDT Hypogonadism male documented in this encounter Results * (ABNORMAL) Testosterone, Total, males (Adult), IA (10/16/2023 2:12 PM EDT) Testosterone, Total 94(A) 250 - 1100 ng/dL [facility] Comment:Men with clinically significant hypogonadalsymptoms and testosterone values repeatedly inthe range of the 200-300 ng/dL or less, maybenefit from testosterone treatment afteradequate risk and benefits counseling.For additional information, please refer tohttp://education.Invision.com.[employer] Education/faq/WtgueVpuelzyfiofhPYSNLNNMD701(This link is being provided for informational/educational purposes only.)This test was developed and its analytical performancecharacteristics have been determined by [facility], [place]. It hasnot been cleared or approved by the U.S. Food and DrugAdministration. This assay has been validated pursuantto the CLIA regulations and is used for clinicalpurposes.THIS TEST WAS PERFORMED AT:[employer]/[facility] [place] [address]TWRUFNALEONORA MCNEIL MD,PHD Blood Venous blood specimen / Unknown 10/16/2023 2:12 PM EDT 10/16/2023 5:54 PM EDT us Jeanna Oleary MD LAB BLOOD ORDERABLES Final Result [facility] [address] [place] [phone] documented in this encounter Visit Diagnoses Diagnosis Hypogonadism male- Primary Other testicular hypofunction documented in this encounter Additional Health Concerns Assessment Noted Time PHQ-9 Depression Total Score: 0 11/24/19 23 10:27 AM EDT documented as of this encounter Care Teams Flight Steward Relationship Specialty Start Date End Date Jeanna Oleary MD [address] [place] [address] PCP - General Internal Medicine 12/19/16 Estefanía Cervantes PharmD [address] [place] [address] Pharmacist Internal Medicine 06/03/24 documented as of this encounter
--- OUTSIDE RECORDS SUMMARY | 2024-06-13 11:45 | XMS_ITS | Encounter Summary ---
Author Organization [employer] Address 75 [facility] 7t [place] [address] Care Team Providers Care Catering Truck Operator Name Role Phone Jeanna Oleary MD Primary Care Provider [phone] Encounter Details Date Type Department Care Team ([facility] st Contact Info) Description 05/28/2024 Telephone [facility] MEDICINE [address] [place] [address] Jeanna Oleary MD [address] [place] [address] Social History Tobacco Use Types Packs/Day Years [...] t he electric, gas, oil or water Sonics threatened to shut off services in your [...] encounter Miscellaneous Notes * Telephone Encounter - Donya Twin - 05/28/2024 2:25 PM EST Patient was seen by line out worker within the past 6 months and would benefit from a transition to the pharmacy CDTM program. Please send a referral for CDTM - Diabetes to ensure continuity of care. Thank you! documented in this encounter Plan of Treatment Upcoming Encounters Date Type Department Care Team (Late st Contact Info) Description 06/16/2024 9:30 AM EST Medication Management [facility] MED & PEDS [address] [place] [address] Estefanía Cervantes, PharmD 230 [place] [address] 06/16/2024 10:00 AM EST Office Visit [facility] MED & PEDS [address] [place] [address] Jeanna Oleary MD [address] [place] [address] documented as of this encounter Visit Diagnoses Not on filedocumented in this encounter Additional Health Concerns Assessment Noted Time PHQ-9 Depression Total Score: 0 11/24/19 23 10:27 AM EDT documented as of this encounter Care Teams Catering Truck Operator Relationship Specialty Start Date End Date Jeanna Oleary MD 505 [place] [address] PCP - General Internal Medicine 12/19/16 documented as of this encounter
--- OUTSIDE RECORDS SUMMARY | 2024-06-13 11:45 | XMS_ITS | Encounter Summary ---
Author Organization [employer] Address 75 [facility] 7 [place] [address] Care Team Providers Care Jackspooler Name Role Phone Jeanna Oleary MD Primary Care Provider [phone] Estefanía Cervantes PharmD Unavailable [phone] Encounter Details Date Type Department Care Team (Late st Contact Info) Description 09/05/2023 Orders Only [facility] CHC MED & PEDS [address] [place], [place] [phone] Jeanna Oleary MD 505 [place] [address] Hyperkalemia (Primary Dx); Type 2 diabetes mellitus with hyperglycemia, with long-term current use of insulin ([facility]); Erectile disorder Social History Tobacco Use Types Packs/Day Years [...] Description 06/16/2024 9:30 AM EST Medication Management [facility] MED & PEDS [address] [place] [address] Estefanía Cervantes PharmD 230 [place] [address] 06/16/2024 10:00 AM EST Office Visit [facility] MED & PEDS [address] [place], [place] [phone] Jeanna Oleary MD [address] [place] [address] Scheduled Orders Name Type Priority Associated Diagnoses Orde r Schedule Potassium Lab Routine Hyperkalemia Expected: 09/05/2023, Expires: 09/04/2024 documented as of this encounter Procedures Procedure Name Priority Date/Time Associated Diagnosis Comments TESTOSTERONE, FREE (DIALYSIS) AND TOTAL,MS Routine 10/03/2023 12:52 PM EDT Erectile disorder documented in this encounter Results * (ABNORMAL) Testosterone, Free (Dialysis) And Total, MS (10/03/2023 12:52 PM EDT) Testosterone, Total 98(A) 250 - 1100 ng/dL [facility] Comment:Men with clinically significant hypogonadalsymptoms and testosterone values repeatedly inthe range of the 200-300 ng/dL or less, maybenefit from testosterone treatment afteradequate risk and benefits counseling.For additional information, please refer tohttp://education.Syllabuster/faq/QxsieZvoqtgxufowrZOEPHFKGO148(This link is being provided for informational/educational purposes only.)This test was developed and its analytical performancecharacteristics have been determined by [facility] [place]. It hasnot been cleared or approved by the U.S. Food and DrugAdministration. This assay has been validated pursuantto the CLIA regulations and is used for clinicalpurposes. Testosterone, Free 14.7(A) 35.0 - 155.0 pg/mL [facility] Comment:This test was develo ped and its analytical performancecharacteristics have been determined by [place] [place]. It hasnot been cleared or approved by the U.S. Food and DrugAdministration. This assay has been validated pursuantto the CLIA regulations and is used for clinicalpurposes.THIS TEST WAS PERFORMED AT:[employer] [id number] [place] [address]UXBJCDQLEONORA MCNEIL MD,PHD Blood Venous blood specimen / Unknown 10/03/2023 12:52 PM EDT 10/03/2023 4:32 PM EDT Jeanna Oleary MD LAB BLOOD ORDERABLES Final Result [facility] [address] [place] [phone] [phone] documented in this encounter Visit Diagnoses Diagnosis Hyperkalemia- Primary Hyperpotassemia Type 2 diabetes mellitus with hyperglycemia, with long-term current use of insulin ([facility]) Erectile disorder documented in this encounter Additional Health Concerns Assessment Noted Time PHQ-9 Depression Total Score: 0 11/24/19 23 10:27 AM EDT documented as of this encounter Care Teams Jackspooler Relationship Specialty Start Date End Date Jeanna Oleary MD [address] [place] [address] PCP - General Internal Medicine 12/19/16 Estefanía Cervantes PharmD [address] [place] [address] Pharmacist Internal Medicine 06/03/24 documented as of this encounter
--- OUTSIDE RECORDS SUMMARY | 2024-06-13 11:45 | XMS_ITS | Encounter Summary ---
Author Organization [employer] Address 75 [facility] 7t [place] [address] Care Team Providers Care Dock Loader Name Role Phone Jeanna Oleary MD Primary Care Provider [phone] Estefanía Cervantes PharmD Unavailable [phone] Reason for Visit * Reason Comments Med Refill Encounter Details Date Type Department Care Team ([facility] st Contact Info) Description 06/03/2024 Refill [facility] CHC MED & PEDS [address] [place], [place] [phone] Jeanna Oleary MD [address] [place] [address] Pruritus, unspecified; Pruritus, unspecified Social History Tobacco Use Types Packs/Day Years [...] Description 06/16/2024 9:30 AM EST Medication Management [facility] MED & PEDS [address] [place] [address] Estefanía Cervantes PharmD [address] [place] [address] 06/16/2024 10:00 AM EST Office Visit [facility] MED & PEDS [address] [place] [address] Jeanna Oleary MD [address] [place] [address] documented as of this encounter Visit Diagnoses Diagnosis Pruritus, unspecified documented in this encounter Additional Health Concerns Assessment Noted Time PHQ-9 Depression Total Score: 0 11/24/19 23 10:27 AM EDT documented as of this encounter Care Teams Dock Loader Relationship Specialty Start Date End Date Jeanna Oleary MD [address] [place] [address] PCP - General Internal Medicine 12/19/16 Estefanía Cervantes PharmD [address] [place] [address] Pharmacist Internal Medicine 06/03/24 documented as of this encounter
--- OUTSIDE RECORDS SUMMARY | 2024-06-13 11:45 | XMS_ITS | Encounter Summary ---
Author Organization [employer] Address 75 [facility] 7 [place] [address] Care Team Providers Care Lip And Gate Builder Name Role Phone Jeanna Oleary MD Primary Care Provider [phone] Reason for Visit * Reason Onset Date Comments Prior Authorization 05/16/2024 Todd Encounter Details Date Type Department Care Team ([facility] st Contact Info) Description 05/16/2024 Telephone C CH[facility] MED & PEDS [address] [place], [place] [phone] Jeanna Oleary MD [address] [place], [place] [phone] Prior Authorization (Todd) Social History Tobacco Use Types Packs/Day Years [...] encounter Miscellaneous Notes * Telephone Encounter - Avril Mcmahon LPN - 05/16/2024 4:11 PM EST Pa generated via CMM pending decision documented in this encounter Plan of Treatment Upcoming Encounters Date Type Department Care Team (Late st Contact Info) Description 06/16/2024 9:30 AM EST Medication Management [facility] MED & PEDS [address] [place] [address] Estefanía Cervantes, PharmD [address] [place] [address] 06/16/2024 10:00 AM EST Office Visit [facility] MED & PEDS [address] [place] [address] Jeanna Oleary MD [address] [place] [address] documented as of this encounter Visit Diagnoses Not on filedocumented in this encounter Additional Health Concerns Assessment Noted Time PHQ-9 Depression Total Score: 0 11/24/19 23 10:27 AM EDT documented as of this encounter Care Teams Lip And Gate Builder Relationship Specialty Start Date End Date Jeanna Oleary MD [address] [place] [address] PCP - General Internal Medicine 12/19/16 documented as of this encounter
--- OUTSIDE RECORDS SUMMARY | 2024-06-13 11:45 | XMS_ITS | Encounter Summary ---
Author Organization [employer] Address 75 [facility] 7 [place] [address] Care Team Providers Care Jewelry Setter Name Role Phone Jeanna Oleary MD Primary Care Provider [phone] Estefanía Cervantes PharmD Unavailable [phone] Encounter Details Date Type Department Care Team (Late st Contact Info) Description 01/29/2024 Orders Only [facility] CHC MED & PEDS [address] [place], [place] [phone] Jeanna Oleary MD [address] [place] [address] Class 3 severe obesity due to excess calories without serious comorbidity with body mass index (BMI) of 40.0 to 44.9 in adult ([facility]) (Primary Dx); Type 2 diabetes mellitus with hyperglycemia, with long-term current use of insulin ([facility]) Social History Tobacco Use Types [...] Medication Management [facility] MED & PEDS [address] [place] [address] Estefanía Cervantes, PharmD 230 [place] [address] 06/16/2024 10:00 AM EST Office Visit [facility] MED & PEDS [address] [place] [address] Jeanna Oleary MD [address] [place] [address] documented as of this encounter Visit Diagnoses Diagnosis Class 3 severe obesity due to excess calories without serious comorbidity with body mass index (BMI) of 40.0 to 44.9 in adult ([facility])- Primary Type 2 diabetes mellitus with hyperglycemia, with long-term current use of insulin ([facility]) documented in this encounter Additional Health Concerns Assessment Noted Time PHQ-9 Depression Total Score: 0 11/24/19 23 10:27 AM EDT documented as of this encounter Care Teams Jewelry Setter Relationship Specialty Start Date End Date Jeanna Oleary MD [address] [place] [address] PCP - General Internal Medicine 12/19/16 Estefanía Cervantes PharmD [address] [place] [address] Pharmacist Internal Medicine 06/03/24 documented as of this encounter
--- OUTSIDE RECORDS SUMMARY | 2024-06-13 11:45 | XMS_ITS | Encounter Summary ---
Author Organization [employer] Address 75 [facility] 7t [place] [address] Care Team Providers Care Die Baker Name Role Phone Jeanna Oleary MD Primary Care Provider [phone] Estefanía Cervantes PharmD Unavailable [phone] Reason for Visit * Reason Onset Date Comments chart prep 06/12/2024 Encounter Details Date Type Department Care Team ([facility] st Contact Info) Description 06/12/2024 Telephone [facility] CHC MED & PEDS [address] [place], [place] [phone] Jeanna Oleary MD [address] [place] [address] chart prep Social History Tobacco Use Types Packs/Day Years [...] encounter Miscellaneous Notes * Telephone Encounter - Мария Prabhakar [place] - 06/12/2024 11:07 AM EST Chart Prep Labs: not done Images: done Vaccines due: yes Referrals: complete Screenings: none Overdue care gaps: A1C, Glucose, Sbirt, SDOH, PHQ-9 documented in this encounter Plan of Treatment Upcoming Encounters Date Type Department Care Team (Late st Contact Info) Description 06/16/2024 9:30 AM EST Medication Management [facility] MED & PEDS [address] [place] [address] Estefanía Cervantes, PharmD [address] [place] [address] 06/16/2024 10:00 AM EST Office Visit [facility] MED & PEDS [address] [place] [address] Jeanna Oleary MD [address] [place] [address] documented as of this encounter Visit Diagnoses Not on filedocumented in this encounter Additional Health Concerns Assessment Noted Time PHQ-9 Depression Total Score: 0 11/24/19 23 10:27 AM EDT documented as of this encounter Care Teams Die Baker Relationship Specialty Start Date End Date Jeanna Oleary MD [address] [place] [address] PCP - General Internal Medicine 12/19/16 Estefanía Cervantes PharmD [address] [place] [address] Pharmacist Internal Medicine 06/03/24 documented as of this encounter
--- OUTSIDE RECORDS SUMMARY | 2024-06-13 11:45 | XMS_ITS | Encounter Summary ---
Author Organization [employer] Address 75 [facility] 7t [place] [address] Care Team Providers Care Staff Internist Office Based Only Name Role Phone Jeanna Oleary MD Primary Care Provider [phone] Estefanía Cervantes PharmD Unavailable [phone] Reason for Visit * Reason Onset Date Comments Referral 11/13/2023 Encounter Details Date Type Department Care Team (Late st Contact Info) Description 11/13/2023 Telephone [facility] MEDICINE [address] [place] [address] Jeanna Oleary MD [address] [place] [address] Referral Social History Tobacco Use Types Packs/Day [...] encounter Miscellaneous Notes * Telephone Encounter - Lynnette Greco - 11/14/2023 10:06 AM EDT Referral faxed to [facility] as requested. * Telephone Encounter - Gene Kumari - 11/13/2023 2:59 PM EDT Tc from pt [facility] [place] [facility]. documented in this encounter Plan of Treatment Upcoming Encounters Date Type Department Care Team (Late st Contact Info) Description 06/16/2024 9:30 AM EST Medication Management [facility] MED & PEDS [address] [place] [address] Estefanía Cervantes, PharmD [address] [place] [address] 06/16/2024 10:00 AM EST Office Visit [facility] MED & PEDS [address] [place] [address] Jeanna Oleary MD 505 [place] [address] documented as of this encounter Visit Diagnoses Not on filedocumented in this encounter Additional Health Concerns Assessment Noted Time PHQ-9 Depression Total Score: 0 11/24/19 23 10:27 AM EDT documented as of this encounter Care Teams Staff Internist Office Based Only Relationship Specialty Start Date End Date Jeanna Oleary MD [address] [place] [address] PCP - General Internal Medicine 12/19/16 Estefanía Cervantes PharmD [address] [place] [address] Pharmacist Internal Medicine 06/03/24 documented as of this encounter
--- OUTSIDE RECORDS SUMMARY | 2024-06-13 11:45 | XMS_ITS ---
Author Organization [facility] Address [address] [place] [address] Care Team Providers Care Check Inspector Name Role Phone Richard Oleary MD Primary Care Provider Jas Sommer [phone] REASON FOR VISIT MEDICAL DOCTOR MD PPWK Entered Encounters Encounter Location Date Provider Diagnosis [facility] [address] [place] [address] 11/15/2023 Jas Love Plan Of Treatment Next Appt Details Provider Name:Jas Love , 02/20/2025 09:00:00 AM, [address] [place], [address], Progress Notes * Jaime HAMLINDOB:[birth year] (68 yo M)Acc No.[id number]:11/15/2023 Patient:?Jaime [place] :1955???Age:68 Y???Sex:Male Address:[address] [facility] [facility] [place], [address] * true * Date:? Generated for Printi ng/Tressag/eTransmitting on:?06/13/2024 11:45 AM EST
--- OUTSIDE RECORDS SUMMARY | 2024-06-13 11:45 | XMS_ITS | Encounter Summary ---
Author Organization [employer] Address 75 [facility] 7t [place] [address] Care Team Providers Care Copy Cutter Name Role Phone Jeanna Oleary MD Primary Care Provider [phone] Estefanía Cervantes PharmD Unavailable [phone] Encounter Details Date Type Department Care Team (Late st Contact Info) Description 09/20/2023 Orders Only [facility] CHC MED & PEDS [address] [place], [place] [phone] Jeanna Oleary MD [address] [place] [address] Type 2 diabetes mellitus with hyperglycemia, with long-term current use of insulin ([facility]) (Primary Dx) Social History Tobacco Use Types [...] [facility] MED & PEDS [address] [place] [address] Estefanía Cervantes PharmD [address] [place] [address] 06/16/2024 10:00 AM EST Office Visit [facility] MED & PEDS [address] [place] [address] Jeanna Oleary MD [address] [place] [address] documented as of this encounter Visit Diagnoses Diagnosis Type 2 diabetes mellitus with hyperglycemia, with long-term current use of insulin ([facility])- Primary documented in this encounter Additional Health Concerns Assessment Noted Time PHQ-9 Depression Total Score: 0 11/24/19 23 10:27 AM EDT documented as of this encounter Care Teams Copy Cutter Relationship Specialty Start Date End Date Jeanna Oleary MD [address] [place] [address] PCP - General Internal Medicine 12/19/16 Estefanía Cervantes PharmD [address] [place] [address] Pharmacist Internal Medicine 06/03/24 documented as of this encounter
--- OUTSIDE RECORDS SUMMARY | 2024-06-13 11:45 | XMS_ITS | Encounter Summary ---
Author Organization [employer] Address 75 [facility] 7t [place] [address] Care Team Providers Care Steam Table Worker Name Role Phone Jeanna Oleary MD Primary Care Provider [phone] Estefanía Cervantes PharmD Unavailable [phone] Encounter Details Date Type Department Care Team (Latest Contact Info) Description 06/03/2024 Travel Social History Tobacco Use Types Packs/Day Years [...] 9:30 AM EST Medication Management [facility] MED & PEDS [address] [place] [address] Estefanía Cervantes PharmD [address] [place] [address] 06/16/2024 10:00 AM EST Office Visit [facility] MED & PEDS [address] [place] [address] Jeanna Oleary MD [address] [place] [address] documented as of this encounter Visit Diagnoses Not on filedocumented in this encounter Additional Health Concerns Assessment Noted Time PHQ-9 Depression Total Score: 0 11/24/19 23 10:27 AM EDT documented as of this encounter Care Teams Steam Table Worker Relationship Specialty Start Date End Date Jeanna Oleary MD [address] [place] [address] PCP - General Internal Medicine 12/19/16 Estefanía Cervantes PharmD [address] [place] [address] Pharmacist Internal Medicine 06/03/24 documented as of this encounter
--- OUTSIDE RECORDS SUMMARY | 2024-06-13 11:46 | XMS_ITS | Patient Health Record ---
[facility] Organization [facility] SofiaSrinivas Address [address] [facility] [place] [address] Care Team Providers Care Battery Tester Name Role Phone Richard Oleary MD Primary Care Provider Jas Sommer Unavailable [phone] Allergies No Known Allergies Results Component Value Reference Range Notes HEMOGLOBIN A1C (GLYCOHEMOGLO BIN) Reviewed date:02/22/2024 11:14:25 AM Interpretation: Performing Lab: Notes/Report: TOTAL HEMOGLOBIN (HGBA1C) 6.5 Reason For Referral No Information Medications Medication SIG (Take, Route, Frequency, Duration) Notes Start Date End Date Status Vitamin D3 Active glipiZIDE 5 MG as directed Orally O nce a day Active Xarelto Active Mounjaro 15 MG/0.5ML as directed Subcutaneous Active Insulin Not-Taking Doxepin HCl Active Gabapentin Active Metoprolol Succinate Active Fexofenadine HCl Act margie Losartan Potassium A ctive metFORMIN HCl Active Ferrous Sulfate Acti ve Extra Depth Orthopedic Shoes, (1) Pair With (3) Pair Custom Heat Molded Multidensity Innersoles Dx: NIDDM/PVD(E11.51), Hammertoe Foot Deformity(M20.41,M20.42) , Preulcerative Skin Lesion(s)(L85.1) Wear Daily for 365 days 02/22/2024 Active Rosuvastatin Calcium Active Omeprazole Active Social History Tobacco Use: Social History Observation Description Date Details (start date - stop date) Never Smoker NA - NA Alcohol Screen Question Answer Notes Did you have a drink containing alcohol in the p ast year? No Points 0 Interpretation Negative Tobacco use other than smoking: Question Answer Notes Are you an other tobacco user? No Tobacco Control (Standard) Question Answer Notes Tobacco use: Nonsmoker Problems Problem Type SNOMED Code ICD Code Onset Dates Problem Status W/U Status Risk Notes Problem Acquired hammer toe of right foot (4535210229684 105) Other hammer toe(s) (acquired), right foot (M20.41) Active confirmed Problem Acquired hammer toe of left foot (0797977945389 103) Other hammer toe(s) (acquired), left foot (M20.42) Active confirmed Problem Type 2 diabetes mellitus with peripheral angiopathy (898874264) Type 2 diabetes mellitus with diabetic peripheral angiopathy without gangrene (E11.51) Active confirmed Q7(A), Q8(2B), Q9(1B,2C) Vital Signs Blood pressure diastolic 80 mm Hg 02/22/2024 Height 5 ft 10 in in 02/22/2024 Blood pressure systolic 128 mm Hg 02/22/2024 Weight 243 lbs 02/22/2024 BMI 34.86 kg/m2 02/22/2024 Encounters Encounter Location Date Provider Diagnosis [facility] [address] 02/22/2024 Jas Love Pain in left foot M79.672 ; Pain in left ankle and joints of left foot M25.572 ; Bursitis of intermetatarsal bursa of left foot M77.52 ; Metatarsalgia, left foot M77.42 ; Type 2 diabetes mellitus with diabetic peripheral angiopathy without gangrene E11.51 ; Other hammer toe(s) (acquired), right foot M20.41 and Other hammer toe(s) (acquired), left foot M20.[address] [facility] [address] 11/15/2023 Jas Love Assessments Encounter Date Diagnosis (ICD Code) Assessment Notes Treatment Notes Treatment Clinical Notes Section Notes 02/22/2024 Pain in left ankle and joints of left foot (ICD-10 - M25.572) 02/22/2024 Pain in left foot (ICD-10 - M79.672) 02/22/2024 Bursitis of intermetatarsal bursa of left foot (ICD-10 - M77.52) 02/22/2024 Metatarsalgia, left foot (ICD-10 - M77.42) 02/22/2024 Type 2 diabetes mellitus with diabetic peripheral angiopathy without gangrene (ICD-10 - E11.51) Q7(A), Q8(2B), Q9(1B,2C) 02/22/2024 Other hammer toe(s) (acquired), right foot (ICD-10 - M20.41) Patient Educated with: DIABETIC FOOT CARE INSTRUCTIONS. pdf (DIABETIC FOOT CARE INSTRUCTIONS. pdf) 02/22/2024 Other hammer toe(s) (acquired), left foot (ICD-10 - M20.42) Plan Of Treatment Pending Test Test Name Order Date X ray : Foot, left 3V 02/22/2024 Next Appt Details Provider Name:Jas Sutton Ivan , 02/20/2025 09:00:00 AM, [address] [place] [address], [phone], Insurance Providers Payer Name Payer Address Payer Phone Subscriber Number Group Number Insured Name Patient Relationship to Insured Coverage Start Date Coverage End Date Medicare National [employer] [address] [place] [address] [id number] Jaime Hamlin Self - patient is the insured 7 [employer] [address] [place] [address] [id number] Jaime Hamlin Self - patient is the insured Medical (General) History Medical History History ICD Code covid-19 Diabetic Heart disease High blood pressure Kidney disease Reflux ( GERD) Stomach ulcer Surgical History Surgery Date(Month/Year) Gall bladder removal
--- OUTSIDE RECORDS SUMMARY | 2024-06-13 11:46 | XMS_ITS | Clinical Summary ---
Author Organization [employer] Address [address] [place] [address] [address] [place] [address] Care Team Providers Care Worm Sorter Name Role Phone Jeanna Oleary MD Primary Care Provider [phone] Estefanía Cervantes PharmD Unavailable [phone] Allergies Active Allergy Reactions Criticality Noted Date Comments Hydroxyzine 08/16/2022 Other reaction(s): ITCHY Other reaction(s): ITCHY Medications glucose-vitamin C 4-6 GM-MG oral gel 1 tab as needed if FS less than 70 mg/dl 020 Active fexofenadine (Yadira) 180 MG tabletIndication s:Pruritus, unspecified TAKE ONE TABLET BY MOUTH EVERY DAY 90 tablet 1 023 Active triamcinolone (Kenalog) 0.1 % creamIndications :Rash and other nonspecific skin eruption APPLY A THIN LAYER TO THE AFFECTED AREA(s) TWICE DAILY, MIX WITH cerave cream 80 g 5 024 Active rosuvastatin (Crestor) 40 MG tabletIndication s:Hypercholester olemia TAKE ONE TABLET BY MOUTH EVERY DAY 90 tablet 5 024 Active nystatin (Mycostatin) 930278 UNIT/GM powder APPLY TO THE AFFECTED AREA(S) TWICE DAILY 60 g 2 024 Active Fluticasone-Salm eterol (Advair Diskus) 250-50 MCG/ACT aerosol powder USE ONE INHALATION TWICE DAILY. RINSE MOUTH AFTER USE 60 each 5 024 Active Continuous Glucose Cardiovascular Specialist (FreeStyle Yahir 2 [place]) deviceIndication s:Type 2 diabetes mellitus with hyperglycemia, with long-term current use of insulin ([facility]) Scan sensor every 8 hours 1 each Active OneTouch Ultra Test test stripIndications :Type 2 diabetes mellitus without complications ([facility]) TEST BLOOD SUGAR SIX TIMES DAILY 200 strip 5 Active Ostomy Supplies (Skin Prep Wipes) miscIndications: Type 2 diabetes mellitus with hyperglycemia, with long-term current use of insulin ([facility]) To wipe the skin prior to applying the sensor 2 times a month 50 each Active Spiriva HandiHaler 18 MCG inhalation capsuleIndicatio ns:Mixed simple and mucopurulent chronic bronchitis ([facility]) USE 1 CAPSULE FOR INHALATION ONCE A DAY DO NOT SWALLOW CAPSULE 30 capsule 6 Active metFORMIN (Glucophage) 1000 MG tabletIndication s:Type 2 diabetes mellitus with diabetic neuropathy, unspecified ([facility]) TAKE ONE TABLET TWICE DAILY 180 tablet 2 Active BD Pen Needle Anny U/F 32G X 4 MM miscIndications: Type 2 diabetes mellitus with diabetic neuropathy, unspecified ([facility]) USE FOUR DAILY 90 each 5 024 2024 Active cholecalciferol (Vitamin D-3) 25 MCG tabletIndication s:Vitamin D deficiency TAKE ONE TABLET DAILY 90 tablet 1 Active furosemide (Lasix) 20 MG tablet TAKE ONE TABLET TWICE DAILY 180 tablet 1 Active glipiZIDE (Glucotrol) 5 MG tabletIndication s:Type 2 diabetes mellitus with hyperglycemia, with long-term current use of insulin ([facility]) Take 1 tablet (5 mg) by mouth before breakfast and before evening meal. TAKE 4 TABLETS Twice daily before meals 180 tablet 3 024 2024 Active omeprazole (PriLOSEC) [address] capsule TAKE ONE CAPSULE BY MOUTH TWICE DAILY BEFORE MEALS 180 capsule 3 Active gabapentin (Neurontin) 800 MG tablet TAKE ONE TABLET BY MOUTH THREE TIMES DAILY 270 tablet 1 Active metoprolol succinate XL (Toprol-XL) 25 MG 24 hr tablet TAKE ONE TABLET EVERY MORNING 90 tablet 3 Active Xarelto 20 MG tablet TAKE ONE TABLET DAILY WITH SUPPER 90 tablet 3 024 Active Mounjaro 15 MG/0.5ML solution auto-injectorInd ications:Class 3 severe obesity due to excess calories without serious comorbidity with body mass index (BMI) of 40.0 to 44.9 in adult ([facility]),Type 2 diabetes mellitus with hyperglycemia, with long-term current use of insulin ([facility]) INJECT 15 SUBCUTANEOUSLY ONCE A WEEK 2 mL 3 025 Active hydrOXYzine HCl (Atarax) 50 MG tabletIndication s:Pruritus, unspecified TAKE ONE TABLET FOUR TIMES DAILY 120 tablet 5 025 Active Ferrous Sulfate (iron) 325 (65 Fe) MG tablet TAKE ONE TABLET EVERY DAY 30 tablet 3 025 Active doxepin (SINEquan) 25 MG capsuleIndicatio ns:Pruritus, unspecified TAKE 1 TO 2 CAPSULES EVERY NIGHT AT BEDTIME 60 capsule 5 025 Active Continuous Glucose Sensor (FreeStyle Yahir 2 Plus Sensor) miscIndications: Type 2 diabetes mellitus with hyperglycemia, with long-term current use of insulin ([facility]) 1 each Once per day. 2 each 11 025 Active losartan (Cozaar) 25 MG tabletIndication s:Benign hypertension Take 1 tablet (25 mg) by mouth Once per day. 90 tablet 3 025 Active Sure Comfort Insulin Syringe 31G X 5/16 0.3 ML misc USE FOUR TIMES DAILY 022 2024 Discontinued(M ed list cleanup (will not trigger notification to Pharmacy)) sodium polystyrene sulfonate (Kayexalate) powderIndication s:Hyperkalemia Take 15 g by mouth 2 times daily. 60 g 1 023 2024 Discontinued(T herapy completed) amiodarone (Pacerone) 200 MG tablet TAKE ONE TABLET BY MOUTH EVERY DAY 90 tablet 1 023 2024 Discontinued(T herapy completed) Tresiba FlexTouch 200 UNIT/ML injection INJECT 76 UNITS SUBCUTANEOUSLY AT BEDTIME OR DIRECTED 18 mL 6 023 2024 Discontinued(T herapy completed) NovoLOG FLEXPEN 100 UNIT/ML penIndications:T ype 2 diabetes mellitus with diabetic neuropathy, unspecified ([facility]) INJECT 30-40 UNITS SUBCUTANEOUSLY BEFORE BREAKFAST, 40-50 UNITS BEFORE LUNCH AND 40-56 UNITS BEFORE SUPPER 45 mL 5 023 2024 Discontinued(T herapy completed) tiZANidine (Zanaflex) 2 MG tabletIndication s:Spasm of right piriformis muscle Take 1 tablet (2 mg) by mouth every 6 (six) hours if needed for muscle spasms for up to 10 days. 30 tablet 023 2024 Discontinued(M ed list cleanup (will not trigger notification to Pharmacy)) ferrous gluconate (Fergon) 324 (37.5 Fe) MG tablet TAKE ONE TABLET EVERY MORNING WITH BREAKFAST 023 2024 Discontinued(A lternate therapy) doxepin (SINEquan) 25 MG capsule Take 50 mg by mouth. 2024 Discontinued(D uplicate order (will not trigger notification to Pharmacy)) losartan (Cozaar) 50 MG tabletIndication s:Benign hypertension Take 0.5 tablets (25 mg) by mouth in the morning. 15 tablet 11 024 2024 Discontinued(R eorder (will not trigger notification to Pharmacy)) gabapentin (Neurontin) 600 MG tabletIndication s:Pruritus, unspecified Take 1 tablet (600 mg) by mouth 3 times daily. 90 tablet 11 024 2024 Discontinued(D ose adjustment) Continuous Glucose Sensor (FreeStyle Yahir 2 Sensor) miscIndications: Type 2 diabetes mellitus with hyperglycemia, with long-term current use of insulin ([facility]) Apply 1 sensor every 14 days 2 each 024 2024 Discontinued(A lternate therapy) doxepin (SINEquan) 25 MG capsuleIndicatio ns:Pruritus, unspecified TAKE 1 TO 2 CAPSULES EVERY NIGHT AT BEDTIME 60 capsule 024 2024 Discontinued hydrOXYzine HCl (Atarax) 50 MG tabletIndication s:Pruritus, unspecified TAKE ONE TABLET FOUR TIMES DAILY 120 tablet 5 024 2024 Discontinued FeroSul 325 (65 Fe) MG tablet TAKE ONE TABLET EVERY DAY 30 tablet 3 024 2024 Discontinued Active Problems Problem Noted Date Diagnosed Date Atrial fibrillation with rapid ventricular respo nse 09/29/2021 Benign hypertension 09/29/2021 Gastroesophageal reflux disease 06/20/2021 Obstructive sleep apnea syndrome 06/20/2021 Injury of kidney 06/20/2021 Hyperlipidemia 06/20/2021 Osteoarthritis 06/20/2021 Pulmonary hypertension 06/20/2021 Stage 3a chronic kidney disease 11/23/2020 Gastric polyposis 12/02/2019 Obesity 04/18/2017 Chronic obstructive lung disease 12/19/2016 Diabetic neuropathy 12/19/2016 Type 2 diabetes mellitus 12/19/2016 Encounters Date Type Department Care Team Description 06/12/2024 Telephone [facility] MED & PEDS [address] [place] [address] Jeanna Oleary MD chart prep 06/03/2024 9:30 AM EST Telemedicine [facility] MED & PEDS [address] [place] [address] Estefanía Cervantes, DayneD Type 2 diabetes mellitus with hyperglycemia, with long-term current use of insulin ([facility]) (Primary Dx); Benign hypertension 06/03/2024 Travel 06/03/2024 Refill [facility] MED & PEDS [address] [place] [address] Jeanna Oleary MD Pruritus, unspecified; Pruritus, unspecified 05/28/2024 Orders Only [facility] MED & PEDS [address] [place] [address] Jeanna Oleary MD Type 2 diabetes mellitus with hyperglycemia, with long-term current use of insulin ([facility]) (Primary Dx) 05/28/2024 Telephone [facility] MEDICINE [address] [place], [place] [id number] Jeanna Oleary MD 05/16/2024 Telephone [facility] MED & PEDS [address] [place] [address] Jeanna Oleary MD Prior Authorization (Mounjaro) 05/14/2024 Refill [facility] & PEDS [address] [place] [address] Jeanna Oleary MD Class 3 severe obesity due to excess calories without serious comorbidity with body mass index (BMI) of 40.0 to 44.9 in adult ([facility]); Type 2 diabetes mellitus with hyperglycemia, with long-term current use of insulin ([facility]) 04/28/2024 11:30 AM EST Clinical Support [facility] MED & PEDS [address] [place] [address] Mateusz Aguilar, MINNA Visit for suture removal (Primary Dx) 04/28/2024 9:00 AM EST Telemedicine [facility] DIABETES/NTRN [address] [place] [address] Consuelo Lovelace RN Type 2 diabetes mellitus with other neurologic complication, without long-term current use of insulin ([facility]) 04/28/2024 Telephone [facility] MED & PEDS [address] [place] [address] Jeanna Oleary MD 04/28/2024 Travel 04/24/2024 9:00 AM EST Telemedicine [facility] DIABETES/NUTRITION [address] [place] [address] Consuelo Lovelace RN Type 2 diabetes mellitus with other neurologic complication, without long-term current use of insulin ([facility]) 04/24/2024 Orders Only GENERIC EXTERNAL DATA DEPARTMENT Provider, Generic External Data 04/24/2024 Travel 04/22/2024 10:00 AM EST Clinical Support [facility] DIABETES/NTRN [address] [place] [address] Consuelo Lovelace RN Type 2 diabetes mellitus with other neurologic complication, without long-term current use of insulin ([facility]) 04/22/2024 9:00 AM EST Office Visit [facility] MED & PEDS [address] [place] [address] Jeanna Oleary MD Epidermoid cyst (Primary Dx) 04/22/2024 Travel 04/17/2024 10:00 AM EST Telemedicine [facility] DIABETES/NUTRITION [address] [place] [address] Consuelo Lovelace RN Type 2 diabetes mellitus with other neurologic complication, without long-term current use of insulin ([facility]) 04/17/2024 Travel 04/15/2024 9:00 AM EST Telemedicine [facility] DIABETES/NTRN [address] [place] [address] Consuelo Lovelace RN Type 2 diabetes mellitus with other neurologic complication, without long-term current use of insulin ([facility]) 04/15/2024 Travel 04/10/2024 9:00 AM EST Telemedicine [facility] DIABETES/NUTRITION [address] [place] [address] Consuelo Lovelace RN Type 2 diabetes mellitus with other neurologic complication, without long-term current use of insulin ([facility]) 04/10/2024 Travel 04/08/2024 9:30 AM EST Telemedicine [facility] DIABETES/NTRN [address] [place] [address] Consuelo Lovelace RN Type 2 diabetes mellitus with other neurologic complication, without long-term current use of insulin ([facility]) 04/08/2024 Travel 04/07/2024 Refill [facility] MEDICINE [address] [place] [address] Jeanna Oleary MD 04/01/2024 9:00 AM EST Telemedicine [facility] DIABETES/NTRN [address] [place] [address] Consuelo Lovelace RN Type 2 diabetes mellitus with other neurologic complication, without long-term current use of insulin ([facility]) 04/01/2024 Travel 03/28/2024 Refill [facility] MEDICINE [address] [place] [address] Jeanna Oleary MD 03/27/2024 9:00 AM EST Telemedicine [facility] DIABETES/NUTRITION [address] [place] [address] Consuelo Lovelace RN Type 2 diabetes mellitus with other neurologic complication, without long-term current use of insulin ([facility]) 03/27/2024 Travel 03/25/2024 9:00 AM EST Telemedicine [facility] DIABETES/NTRN [address] [place] [address] Consuelo Lovelace, MINNA Type 2 diabetes mellitus with other neurologic complication, without long-term current use of insulin (CMS/HCC) 03/25/2024 Orders Only GENERIC EXTERNAL DATA DEPARTMENT Provider, Generic External Data 03/25/2024 Travel 03/20/2024 9:00 AM EST Telemedicine [facility] DIABETES/NUTRITION [address] [place] [address] Consuelo Lovelace RN Type 2 diabetes mellitus with other neurologic complication, without long-term current use of insulin (CMS/HCC) 03/20/2024 Orders Only [facility] MED & PEDS [address] [place] [address] Jeanna Oleary MD Atrial fibrillation with rapid ventricular response ([facility]) (Primary Dx) 03/20/2024 Travel 03/19/2024 Telephone [facility] MEDICINE [address] [place] [address] Jeanna Oleary MD Referral 03/18/2024 9:00 AM EST Telemedicine [facility] DIABETES/NTRN [address] [place] [address] Consuelo Lovelace RN Type 2 diabetes mellitus with other neurologic complication, without long-term current use of insulin ([facility]) 03/18/2024 Travel 03/13/2024 9:00 AM EST Telemedicine [facility] DIABETES/NUTRITION [address] [place] [address] Consuelo Lovelace RN Type 2 diabetes mellitus with other neurologic complication, without long-term current use of insulin ([facility]) 03/13/2024 Travel from Last 3 Months Immunizations Name Administration Dates Next Due Hep B, adult 03/04/2018,12/31/2017,11/30/2017 Influenza Quadrivalent Adjuvanted 01/19/2023,08/2021,01/24/2021 Influenza injectable quadriv alent IIV4 with preservative 01/20/2019,02/10/2016 Influenza injectable quadriv alent preservative free 01/19/2020,02/07/2018,12/28/2014 Influenza, High Dose Seasona l, Preservative Free 02/16/2017 Influenza, IIV3, injectable 02/07/2022,0 01/24/2021,01/19/2020,01/20,02/07/2018,02/06/2017,02/10/2016 ,02/03/2015,12/28/2014 Influenza, seasonal, injecta ble, preservative free 02/03/2015 Influenza, trivalent, adjuvanted 01/09/2024 Pneumococcal Conjugate PCV 13 01/19/2020 ,11/09/2015,01/05/2015,08/27 Pneumococcal Polysaccharide PPSV23 01/24,11/09/2015,12/16/2014,08/27 RSV Bivalent 01/19/2023 Tdap 11/09/2015 Zoster, Recombinant 02/25/2019,12/23/2018 Zoster, live 11/09/2015,03/20/2015 Social History Tobacco Use Types Packs/Day Years Used Date Smoking Tobacco: Former Cigarettes Smokeless Tobacco: Never Tobacco Cessation:Counseling Given: Not Answered Alcohol Use Standard Drinks/Week Comments Yes 3 [...] Orientation Straight 03/06/2022 10 :31 AM EDT Last Filed Vital Signs Vital Sign Reading Time Taken Comments Blood Pressure 118/79 06/03/2024 8:00 AM EST home BP reading Pulse 78 06/03/2024 8:00 AM EST home BP reading Temperature 36.5 ??C (97.7 ??F) 04/22/2024 9 :10 AM EST Respiratory Rate 20 04/22/2024 9:10 AM EST Oxygen Saturation 96% 04/22/2024 9:1 0 AM EST Inhaled Oxygen Concentration - - Weight 104 kg (229 lb) 04/22/2024 9:10 AM EST Height 175.3 cm (5' 9 ) 04/22/2024 9:10 AM EST Body Mass Index 33.82 04/22/2024 9:10 AM EST Plan of Treatment Upcoming Encounters Date Type Department Care Team (Late st Contact Info) Description 06/16/2024 9:30 AM EST Medication Management [facility] MED & PEDS [address] [place] [address] Estefanía Cervantes, PharmD [address] [place] [address] 06/16/2024 10:00 AM EST Office Visit [facility] MED & PEDS [address] [place] [address] Jeanna Oleary MD [address] [place] [address] Health Maintenance Due Date Last Done Comments CT Colonography 1954 FIT DNA/Cologuard 1955 FIT 1955 FOBT 1955 Sigmoidoscopy 1955 Diabetes: Foot Exam 1964 Alcohol/Substance Use Screening 1966 Hepatitis C Screening 1972 Hepatitis B Vaccines (3 of 3 - 19+ 3-dose series) 06/02/2018 03/04/2018, 12/31/2017, 11/30/2017 Depression Screening 11/24/2023 11/23/2022, 11/24/19 23 SDOH Screening 11/24/2023 11/23/2022 Eye Exam 02/08/2024 02/07/2023 Diabetes: Hemoglobin A1C 08/20/2024 024, 11/01/2023, 07/30/2023, Additional history exists Lipid Panel 11/25/2024 11/26/2023 Tobacco Screening 04/22/2025 04/22/2024 DTaP/Tdap/Td Vaccines (2 - Td or Tdap) 11/08/2025 11/09/2015 Colonoscopy 02/16/2028 02/15/2023 Colorectal Cancer Screening 02/16/2028 Zoster Vaccines Completed 02/25/2019, 12/05, 11/09/2015, Additional history exists Pneumococcal Vaccine: 50+ Years Completed 01/24/2021, 01/19/2020, 11/09/2015, Additional history exists RSV Patients and Patients Aged 60 years or older Completed 01/19/2023 COVID-19 Vaccine Completed 01/09/2024, 02/2023, 02/07/2022, Additional history exists Influenza Vaccine Completed 01/09/2024, , 02/07/2022, Additional history exists HIB Vaccines Aged Out No longer eligi ble based on patient's age to complete this topic HPV Vaccines Aged Out No longer eligi ble based on patient's age to complete this topic Hepatitis A Vaccines Aged Out No long er eligible based on patient's age to complete this topic IPV Vaccines Aged Out No longer eligi ble based on patient's age to complete this topic Meningococcal Vaccine Aged Out No raghav diego eligible based on patient's age to complete this topic RSV under 20 months Aged Out No longe r eligible based on patient's age to complete this topic Rotavirus Vaccines Aged Out No longer eligible based on patient's age to complete this topic Procedures Procedure Name Priority Date/Time Associated Diagnosis Comments LDCT LUNG SCREENING Routine 05/21/2024 6 :59 AM EST SUTURE REMOVAL Routine 04/28/2024 11:46 AM EST Visit for suture removal TESTOSTERONE, TOTAL, MALES (ADULT), IA Routine 04/24/2024 11:21 AM EST INCISE AND DRAIN ABSCESS Routine 04/22/2024 11:12 AM EST Epidermoid cyst URINE PROTEIN, TOTAL, RANDOM (W/O CREATININE) Routine 03/25/2024 10:25 AM EST CREATININE, RANDOM URINE Routine 03/25/2024 10:25 AM EST URINALYSIS, COMPLETE Routine 03/25/2024 10:25 AM EST TESTOSTERONE, TOTAL, MALES (ADULT), IA Routine 03/25/2024 10:20 AM EST BASIC METABOLIC PANEL Routine 03/25/2024 10:20 AM EST POCT GLYCATED HEMOGLOBIN, TOTAL Routine 02/20/2024 12:51 PM EDT Type 2 diabetes mellitus with hyperglycemia, with long-term current use of insulin ([facility]) LIPID PANEL, STANDARD Routine 11/26/2023 8:45 AM EDT COLONOSCOPY Routine 02/15/2023 HM DIABETES EYE EXAM Routine 02/07/2023 from Last 3 Months or Most Recently Relevant to Health Maintenance Results * CT Lung Screening Low dose (05/21/2024 6:59 AM EST) Anatomical Region Laterality Modality Lung Computed Tomogra phy 05/21/2024 6:59 AM EST Narrative 05/21/2024 7:01 AM EST ? [facility] ?[address] ?[place] [address] ? CT Scan Report ? Signed ? Patient: Jaime Hamlin ?MR#: [id number] ?? [id number] ? : 1955 ?Acct:[id number] ? Age/Sex: 68 / M ?ADM Date: 01/14/25 ? Loc: HO.CT ? Attending Dr: Mercy Youssef PA-C ? Ordering Physician: Mercy Youssef PA-C ?? Date of Service: 05/20/24 ?? Procedure(s): CT lung screening ?? Accession Number(s): [id number] ? cc: Jeanna Oleary MD; Mercy Youssef PA-C ? Report Number: ?? [id number]: Total DLP = ?? 76.00 mGy-cm ? CLINICAL HISTORY: Z87.891 - Personal history of nicotine dependence ? CT lung cancer screening (LDCT) ? Comparison: 05/14/2023 ? Technique: ?? Axial CT images of the chest using low-dose technique. Referring provider ?? counseled the patient on shared decision-making for LDCT screening. ?? Additional counseling was provided on smoking cessation. ?? Effective radiation dose total: DLP 65.8 mGycm, CTDIvol 2 mGy. ? Findings: ?? Lung: Mild emphysema. 4 mm nodule of the right lower lobe series 4, image ?? 28. There are additional micro nodules. ? Coronary artery calcifications: None ?? Limited upper abdomen: Unremarkable ? Other: None ? Impression: ?? LungRADS 2 - Benign Appearance: Continue annual screening with low dose ?? Chest CT in 12 months. ? ##L2# ? Category 1: Normal; continue annual screening ?? Category 2: Benign appearance or behavior, continue annual screening ?? Category 3: Probably benign, [address] recommended ?? Category 4A: Suspicious, [address] recommended; may consider PET/CT ?? Category 4B: Suspicious, Additional diagnostics and/or tissue sampling ?? recommended ?? Category 4X: Suspicious, Additional diagnostics and/or tissue sampling ?? recommended ?? Category 0: Recalls (incomplete screen due to Incomplete coverage, Noise, ?? Respiratory motion, Expiration, Obscured by acute abnormality) ? This document has been electronically signed by: Jordan Buck MD on ?? 05/21/2024 06:59:39 ? Dictated By: ?Jordan Buck MD ? Signed By: ?<Electronically signed by Jordan Buck MD in OV> ? 05/21/24 0700 ? DD/ 0659 ? TD/TT: 05/21/24 0659 ? [employer]: ? Procedure Note Donotuseinterpreter, Image - 05/21/[address] [address] [address] Scan Report Signed Patient: Jaime Hamlin JMR#: [id number] : 5Acct:[id number] Age/Sex: 68 / MADM Date: 05/20/24 Loc: HO.CT Attending Dr: Mercy Youssef PA-C Ordering Physician: Mercy Youssef PA-C Date of Service: 05/20/24 Procedure(s): CT lung screening Accession Number(s): [id number] cc: Jeanna Oleary MD; Mercy Youssef PA-C Report Number: [id number]: Total DLP = 76.00 mGy-cm CLINICAL HISTORY: Z87.891 - Personal history of nicotine dependence CT lung cancer screening (LDCT) Comparison: 05/14/2023 Technique: Axial CT images of the chest using low-dose technique. Referring provider counseled the patient on shared decision-making for LDCT screening. Additional counseling was provided on smoking cessation. Effective radiation dose total: DLP 65.8 mGycm, CTDIvol 2 mGy. Findings: Lung: Mild emphysema. 4 mm nodule of the right lower lobe series 4, image 28. There are additional micro nodules. Coronary artery calcifications: None Limited upper abdomen: Unremarkable Other: None Impression: LungRADS 2 - Benign Appearance: Continue annual screening with low dose Chest CT in 12 months. ##L2# Category 1: Normal; continue annual screening Category 2: Benign appearance or behavior, continue annual screening Category 3: Probably benign, [address] recommended Category 4A: Suspicious, [address] recommended; may consider PET/CT Category 4B: Suspicious, Additional diagnostics and/or tissue sampling recommended Category 4X: Suspicious, Additional diagnostics and/or tissue sampling recommended Category 0: Recalls (incomplete screen due to Incomplete coverage, Noise, Respiratory motion, Expiration, Obscured by acute abnormality) This document has been electronically signed by: Jordan Buck MD on 05/21/2024 06:59:39 Dictated By: Jordan Buck MD Signed By: <Electronically signed by Jordan Buck MD in OV> 05/21/24 0700 DD/ 8 TD/TT: 05/21/24658 [employer]: [employer] [facility] External Provider IMG CT PROCEDURES Edited Result - Final * Suture Removal (04/28/2024 11:46 AM EST) Mateusz Nayak RN - 04/28/2024 11:46 AM EST Mateusz Aguilar RN ? 04/28/2024 11:53 AM Suture Removal Date/Time: 04/28/2024 11:46 AM Performed by: Mateusz Aguilar RN Authorized by: Jeanna Oleary MD ?? Consent: ??Consent obtained: ??Verbal ??Consent given by: ??Patient Location: ??Location: ??Trunk ??Trunk location: ??Back (left upper) Procedure details: ??Wound appearance: ??No signs of infection ??Number of sutures removed: ??2 Post-procedure details: ??Post-removal: ??No dressing applied ??Procedure completion: ??Tolerated Comments: ?? Pt got cyst removed of left upper back on 04/22/24 by PCP and 2 sutures were placed. Both sutures removed today. Jeanna Oleary MD IN CLINIC/BEDSIDE ORDERABLE S Final Result * Testosterone, Total, males (Adult), [place] (04/24/2024 11:21 AM EST) Only the most recent of2 resultswithin the time period is included. Testosterone, Total 464 250 - 1100 ng/dL [facility] Comment:Men with clinically significant hypogonadalsymptoms and testosterone values repeatedly inthe range of the 200-300 ng/dL or less, maybenefit from testosterone treatment afteradequate risk and benefits counseling.For additional information, please refer tohttp://education.[employer].Zhilian [employer]ha[employer]/faq/[email or web address](This link is being provided for informational/educational purposes only.)This test was developed and its analytical performancecharacteristics have been determined by [employer] [place], [place]. It hasnot been cleared or approved by the U.S. Food and DrugAdministration. This assay has been validated pursuantto the CLIA regulations and is used for clinicalpurposes.THIS TEST WAS PERFORMED AT:[id number] [place] [address]RGVIHXKLEONORA MCNEIL MD,PHD 04/24/2024 11:2 1 AM EST 04/24/2024 1:25 PM EST us Generic External Data Provider LAB BLOOD ORDERAB LES Final Result Performing Organization Address [facility]/State/[facility] de Phone Number [facility] [address] [place] [phone] * Incise and drain abscess (04/22/2024 11:12 AM EST) Narrative Jeanna Oleary MD - 04/22/2024 11:12 AM EST Jeanna Oleary MD ? 04/22/2024 11:15 AM Incise and drain abscess Date/Time: 04/22/2024 11:12 AM Performed by: Jeanna Oleary MD Authorized by: Jeanna Oleary MD ?? Consent: ??Consent obtained: ??Written ??Consent given by: ??Patient ??Procedure risks and benefits discussed: Yes ?Patient questions answered: No ?Patient agrees, verbalizes understanding, and wants to proceed: No ?Educational handouts given: No ?Instructions and paperwork completed: Yes ?? Catron protocol: ??Procedure explained and questions answered to patient or proxy's satisfaction: yes ?Relevant documents present and verified: no ?Test results available: no ?Imaging studies available: no ?Required blood products, implants, devices, and special equipment available: no ?Site/side marked: no ?Immediately prior to procedure, a time out was called: yes ?Patient identity confirmed: ??Verbally with patient Indications: ??Indications: ??Epidermoid cyst Pre-procedure details: ??Skin preparation: ??Chlorhexidine with alcohol Sedation: ??Sedation type: ??None Anesthesia: ??Anesthesia method: ??Local infiltration ??Local anesthetic: ??Lidocaine 1% w/o epi Procedure specific details: ?? 0.5 mL of Xylocaine 1% injected. ??A punch of 4 mm was used. ??The sac was identified. ??2 sutures 5.0 Ethilon placed after. ??Patient is to return to clinic in 1 week for removal of the stitches. us Jeanna Oleary MD IN CLINIC/BEDSIDE ORDERABLE S Final Result * (ABNORMAL) Urine Protein, Total, Random without Creatinine (03/25/2024 10:25 AM EST) Protein, Total, Random Urine 63(H) <12 mg/dL [facility] 03/25/2024 10:2 5 AM EST 03/25/2024 1:08 PM EST us Generic External Data Provider LAB URINE ORDERAB LES Final Result Performing Organization Address [facility] Co de Phone Number [facility] [address] [place] [phone] * Creatinine, Random Urine (03/25/2024 10:25 AM EST) Creatinine, Urine 55.02 mg/dL [facility] 03/25/2024 10:2 5 AM EST 03/25/2024 1:08 PM EST us Generic External Data Provider LAB URINE ORDERAB LES Final Result Performing Organization Address [facility] Co de Phone Number [facility] [address] [place] [address] [phone] * (ABNORMAL) Urinalysis Complete (03/25/2024 10:25 AM EST) Color Urine Yellow [facility] Appearance Urine Clear [facility] PH 7.0 5.0 - 9.0 [facility] Glucose Urine UA 100(A) Negative mg/dL [facility] Urine Blood Negative Negative [facility] Specific [place] - Urine 1.015 1.005 - 1.025 [facility] Urine Protein 100 (2+)(A) Neg-Trace mg/dL [facility] Urine Ketones Negative Negative mg/dL [facility] Nitrite Urine Negative Negative [facility] Leukocyte Esterase Urine Negative Negative [facility] RBC Urine 0-2 0 - 2 /HPF [facility] Urine WBC 0-5 0 - 5 /HPF [facility] Urine Squamous Epithelial Cell 0-2 0 - 2 /HPF [facility] Urine Bacteria None Seen None Seen [facility] Hyaline Casts, Urine 0-2 0 - 2 /LPF [facility] 03/25/2024 10:2 5 AM EST 03/25/2024 1:08 PM EST us Generic External Data Provider LAB URINE ORDERAB LES Final Result Performing Organization Address City/State/[facility] Co de Phone Number [facility] [address] [place] [phone] * (ABNORMAL) Basic Metabolic Panel (03/25/2024 10:20 AM EST) Sodium 138 135 - 145 mmol/L [facility] Potassium 5.2(H) 3.3 - 5.1 mmol/L [facility] Comment:Slight Hemolysis.Int erpret result with caution. Chloride 104 96 - 108 mmol/L [facility] Carbon Dioxide 26 22 - 29 mmol/L [facility] Anion Gap 13 12 - 20 [facility] Urea Nitrogen (BUN) 14 9 - 16 mg/dL [facility] Creatinine, Serum 0.89 0.5 - 1.4 mg/dL [facility] Estimated Glomerular Filt Rate >60 [facility] Comment:Chronic Kidney Disea se: Estimated GFR < 60 mL/min/1.77k3Lobllv Kidney Disease: Estimated GFR < 15 mL/min/1.73m2 Glucose 176(H) 60 - 115 mg/dL [facility] Calcium 9.8 8.4 - 10.2 mg/dL [facility] 03/25/2024 10:2 0 AM EST 03/25/2024 1:17 PM EST us Generic External Data Provider LAB BLOOD ORDERAB LES Final Result Performing Organization Address City/State/[facility] Co de Phone Number [facility] [address] [place] [phone] * (ABNORMAL) POCT HGB A1C (02/20/2024 12:51 PM EDT) Hemoglobin A1C 6.5(A) 4.0 - 6.0 % QC Media Lot # [id number] Lot# Expiration Date Blood 02/20/2024 12:5 1 PM EDT us Jeanna Oleary MD POINT OF CARE TEST ENTER/ED IT ORDERABLES Final Result * (ABNORMAL) Lipid Panel, Standard (11/26/2023 8:45 AM EDT) Triglycerides 155(H) <150 mg/dL [facility] Comment:Desirable Triglyceri de: less than 150 mg/dLBorderline High Triglyceride 150-199 mg/dLHigh Triglyceride: 200-499 mg/dLVery High Triglyceride: greater than or equal to 5OO mg/dL Cholesterol 99 <200 mg/dL [facility] Comment:Desirable Cholestero l: less than 200 mg/dLBorderline High Cholesterol: 200-239 mg/dLHigh Cholesterol: greater than 239 mg/dL LDL Cholesterol Calculated 32 <100 mg/dL [facility] Comment:Desirable LDL: less than 100 mg/dLNear Optimal/Above Optimal LDL: 110- 129 mg/dLBorderline High LDL: 130-159 mg/dLHigh LDL: 160-189 mg/dLVery High LDL: greater than or equal to 190 mg/dL HDL Cholesterol 36(L) >40 mg/dL [facility] Comment:Desirable HDL: grea ter than 40 mg/dL Note: This HDL assay may give artificially low results in patients with liver disease. 11/26/2023 8:45 AM EDT 11/26/2023 8:45 AM EDT us Generic External Data Provider LAB BLOOD ORDERAB LES Final Result Performing Organization Address City/State/[facility] Co de Phone Number [facility] [address] [place] [phone] * (ABNORMAL) Colonoscopy (02/15/2023) Anatomical Region Laterality Modality Endoscopy Narrative 02/15/2023 Diverticulosis of sigmoid colon. Internal hemorrhoids. Done by Dr Kirby Lomax. Repeat Colonoscopy in 5 years. us Jeanna Oleary MD ENDOSCOPY PROCEDURE ORDERAB LES Final Result * Diabetes Eye Exam (02/07/2023) Eye Exam Normal Normal Narrative Мария Prabhakar DEBBIE - 02/07/2023 No diabetic retinopathy us Jeanna Oleary MD HEALTH MAINTENANCE Final Re sult from Last 3 Months or Most Recently Relevant to Health Maintenance Insurance [facility] MEDICARE ADVANTAGE HMO Care Teams Worm Sorter Relationship Specialty Start Date End Date Jeanna Oleary MD [address] [place] [address] PCP - General Internal Medicine 12/19/16 Estefanía Cervantes PharmD [address] [place] [phone] Pharmacist Internal Medicine 06/03/24
--- OUTSIDE RECORDS SUMMARY | 2024-06-13 11:46 | XMS_ITS | Encounter Summary ---
Author Organization [employer] Address [address] [facility] 7 [place] [address] Care Team Providers Care Ebd Special Education Teacher Name Role Phone Jeanna Oleary MD Primary Care Provider [phone] Estefanía Cervantes PharmD Unavailable [phone] Encounter Details Date Type Department Care Team (Late st Contact Info) Description 12/04/2023 Orders Only [facility] MED & PEDS [address] [place], [place] [phone] Jeanna Oleary MD [address] [place] [address] Class 3 severe obesity due to excess calories without serious comorbidity with body mass index (BMI) of 40.0 to 44.9 in adult ([facility]) (Primary Dx); Type 2 diabetes mellitus with hyperglycemia, with long-term current use of insulin ([facility]) Social History Tobacco Use Types Packs/Day [...] 06/16/2024 9:30 AM EST Medication Management [facility] MED & PEDS [address] [place] [address] Estefanía Cervantes, PharmD [address] [place] [address] 06/16/2024 10:00 AM EST Office Visit [facility] MED & PEDS [address] [place] [address] Jeanna Oleary MD [address] [place] [address] documented as of this encounter Visit Diagnoses Diagnosis Class 3 severe obesity due to excess calories without serious comorbidity with body mass index (BMI) of 40.0 to 44.9 in adult ([facility])- Primary Type 2 diabetes mellitus with hyperglycemia, with long-term current use of insulin ([facility]) documented in this encounter Additional Health Concerns Assessment Noted Time PHQ-9 Depression Total Score: 0 11/24/19 23 10:27 AM EDT documented as of this encounter Care Teams Ebd Special Education Teacher Relationship Specialty Start Date End Date Jeanna Oleary MD [address] [place] [phone] PCP - General Internal Medicine 12/19/16 Estefanía Cervantes PharmD [address] [place] [phone] Pharmacist Internal Medicine 06/03/24 documented as of this encounter
--- OUTSIDE RECORDS SUMMARY | 2024-06-13 11:46 | XMS_ITS | Encounter Summary ---
Author Organization [employer] Address [address] [facility] [address] [place] [address] Care Team Providers Care Direct Marketing Specialist Name Role Phone Jeanna Oleary MD Primary Care Provider [phone] Estefanía Cervantes PharmD Unavailable [phone] Encounter Details Date Type Department Care Team (Late st Contact Info) Description 01/01/2024 Orders Only [facility] MED & PEDS [address], [place] [phone] Jeanna Oleary MD [address] [place] [address] Type 2 diabetes mellitus with hyperglycemia, with long-term current use of insulin ([facility]) (Primary Dx) Social History Tobacco [...] Description 06/16/2024 9:30 AM EST Medication Management [facility] MED & PEDS [address] [place] [address] Estefanía Cervantes PharmD [address] [place] [address] 06/16/2024 10:00 AM EST Office Visit [facility] MED & PEDS [address] [place] [address] Jeanna Oleary MD [address] [place] [address] documented as of this encounter Visit Diagnoses Diagnosis Type 2 diabetes mellitus with hyperglycemia, with long-term current use of insulin ([facility])- Primary documented in this encounter Additional Health Concerns Assessment Noted Time PHQ-9 Depression Total Score: 0 11/24/19 23 10:27 AM EDT documented as of this encounter Care Teams Direct Marketing Specialist Relationship Specialty Start Date End Date Jeanna Oleary MD [address] [place] [address] PCP - General Internal Medicine 12/19/16 Estefanía Cervantes PharmD [address] [place] [address] Pharmacist Internal Medicine 06/03/24 documented as of this encounter
--- OUTSIDE RECORDS SUMMARY | 2024-06-13 11:46 | XMS_ITS ---
Author Organization [facility] Address [address] [place] [address] Care Team Providers Care Ski Patroller Name Role Phone Richard Oleary MD Primary Care Provider Jas Sommer Unavailable [phone] Allergies No Known Allergies REASON FOR VISIT Foot pain, At Risk Footcare, Painful Nail(s) aggravated by shoes and causing difficulty standing/walking., Toe Irritation Medications Medication SIG (Take, Route, Frequency, Duration) Notes Start Date End Date Status Insulin Not-Taking Doxepin HCl Active Metoprolol Succinate Active Losartan Potassium A ctive Extra Depth Orthopedic Shoes, (1) Pair With (3) Pair Custom Heat Molded Multidensity Innersoles Dx: NIDDM/PVD(E11.51), Hammertoe Foot Deformity(M20.41,M20.42) , Preulcerative Skin Lesion(s)(L85.1) Wear Daily for 365 days 02/22/2024 Active Vitamin D3 Active glipiZIDE 5 MG as directed Orally O nce a day Active Xarelto Active Rosuvastatin Calcium Active Omeprazole Active Mounjaro 15 MG/0.5ML as directed Subcutaneous Active Gabapentin Active Fexofenadine HCl Act margie metFORMIN HCl Active Ferrous Sulfate Acti ve Social History Tobacco Use: Social History Observation [...] Problem Status W/U Status Risk Notes Problem Type 2 diabetes mellitus with peripheral angiopathy (272042072) Type 2 diabetes mellitus with diabetic peripheral angiopathy without gangrene (E11.51) Active confirmed Q7(A), Q8(2B), Q9(1B,2C) Problem Acquired hammer toe of right foot (8810578430298 105) Other hammer toe(s) (acquired), right foot (M20.41) Active confirmed Problem Acquired hammer toe of left foot (4942916069773 103) Other hammer toe(s) (acquired), left foot (M20.42) Active confirmed Vital Signs Height 5 ft 10 in in 02/22/2024 Weight 243 lbs 02/22/2024 BMI 34.86 kg/m2 02/22/2024 Blood pressure systolic 128 mm Hg 02/22/20 24 Blood pressure diastolic 80 mm Hg 024 Encounters Encounter Location Date Provider Diagnosis [facility] [address] [address] 02/22/2024 Jas Ivan Pain in left foot M79.672 ; Pain in left ankle and joints of left foot M25.572 ; Bursitis of intermetatarsal bursa of left foot M77.52 ; Metatarsalgia, left foot M77.42 ; Type 2 diabetes mellitus with diabetic peripheral angiopathy without gangrene E11.51 ; Other hammer toe(s) (acquired), right foot M20.41 and Other hammer toe(s) (acquired), left foot M20.42 Assessments Encounter Date Diagnosis (ICD Code) Assessment Notes Treatment Notes Treatment Clinical Notes Section Notes 02/22/2024 Pain in left foot (ICD-10 - M79.672) 02/22/2024 Pain in left ankle and joints of left foot (ICD-10 - M25.572) 02/22/2024 Bursitis of intermetatarsal bursa of left [...] foot (ICD-10 - M20.42) Plan Of Treatment Medication Medication Name Sig Start Date Stop Date Notes Extra Depth Orthopedic Shoes , (1) Pair With (3) Pair Custom Heat Molded Multidensity Innersoles Dx: NIDDM/PVD(E11.51), Hammertoe Foot Deformity(M20.41,M20.42), Preulcerative Skin Lesion(s)(L85.1) Wear Daily for 365 days 02/22/2024 Treatment Notes Assessment Notes Other hammer toe(s) (acquired), right fo ot Patient Educated with: DIABETIC FOOT CARE INSTRUCTIONS.pdf (DIABETIC FOOT CARE INSTRUCTIONS.pdf) Pending Test Test Name Order Date X ray : Foot, left 3V 02/22/2024 Next Appt Details Follow Up: 1 Year, Reason: Provider Name:Jas Love , 02/20/2025 09:00:00 AM, [address] [place] [address], [id number], Progress Notes * Jaime HAMLINDOB:[birth year] (68 yo M)Acc No.[id number]:02/22/2024 Progress Notes Patient:?Jaime HAMLIN Provider:?Jas Love DPM :1955???Age:68 Y???Sex:Male Giovanni e:02/22/2024 Address:[address] [place], [place] [id number] Pcp:Richard Oleary MD Subjective: * Chief Complaints: * ???Foot painAt Risk Footcare Painful Nail(s) aggravated by shoes and causing difficulty standing/walking.Toe Irritation * HPI: ???Foot Pain:?Location:?Bottom, Forefoot, LEFT.?Duration:?several years.?Course:?worse.?Aggravated:?any pressure , standing , walking.?Treatments:?rest/alter normal daily activity.?At Risk footcare:?Pt States Last PCP Visit:?Date?02/20/2024 ???Toe pain:?Location:?B/L feet.?Duration:?several years.?Course:?worse.?Aggravated by:?shoes, any pressure.?Treatments:?change in shoes.? * ROS:?General/Constitutional:?Nausea?denies.?Vomiting?denies.?Hunger Thirst?denies.?Loss appetite?denies.?Chills?denies.?Fatigue?denies.?Fever?denies.?Night Sweats?denies.?Unexplained weight loss?denies.?Unexplained weight gain?denies.?HEENTM:?Dentures?denies.?Dizziness?denies.?Glasses/contacts?admits.?Retinopathy?den ies.?Blurred/double vision?denies.?TMJ?denies.?Discharge/drainage?denies.?Implants?denies.?Sore throat?denies.?Dental implants?denies.?Hard of hearing ?denies.?Difficulty chewing/swallowing/speaking?denies.?Nose bleeds?denies.?Sore mouth?denies.?Respiratory:?On O xygen?admits.?Pneumonia/pleurisy?denies.?Bronchitis?denies.?Emphysema?denies.?Co ughing?denies.?Cough blood?denies.?Shortness of breath?admits.?Wheezing?denies.?Cardiovascular:?Pacemaker?denies.?MVP?denies.?WPW?denies.?CHF?denies.?Heart attack?denies.?Septal defect?denies.?Rapid beat?denies.?Chest pain ?denies.?Atrial Fib.?admits.?Murmur/Palpitations?denies.?Gastrointestinal:?Hemorrhoids?denies.?Stomach/Abdominal pain?denies.?Dark blood stool?denies.?Irritable bowel ?denies.?Constipation?denies.?Diarrhea?denies.?Hematology:?Swelling?denies.?Clots?denies.?Varicose Veins?denies.?Bruising?admits, on anticoagulants.?Bleeding problem?admits, on anticoagulants.?Genitourinary:?Blood urine?denies.?Frequent/Painfu/urination/bladder control?denies.?Kidney stones?denies.?Infection (UTI)?denies.?Nephropathy?denies.?sex trans dis (STD)?denies.?Prostate?denies.?Musculoskeletal:?Hammertoes?admits.?Bunions?denies.?Back Pain?denies.?Muscle Cramps/ Resting?denies.?Muscle cramps / walking?denies.?Generalized aches and pains?denies.?Weakness?denies.?Integ.:?Almaraz?denies.?Scars?denies.?Corns/calluses?admits.?Ingrown nails?admits.?Painful nails?admits.?Open Sores?denies.?Rashes?denies.?Neurologic:?Difficulty sleeping?denies.?Brain disorder?denies.?Numbness?denies.?Balance t rouble?admits.?Confusion?denies.?Fainting/blackouts?denies.?Tingling?denies.?Amor mors?denies.? * Medical History:? * Surgical History:?Gall bladd er removal * Hospitalization/Major Diagno stic Procedure:?Denies Past Hospitalization * Family History:?Mother: dece ased.?Father: , diagnosed with Diabetic - NIDDM.? * Social History:?Tobacco Use:?Tobacco use other than smoking?Are you an other tobacco user??No ?Tobacco Control (Standard)?Tobacco use:?Nonsmoker ???Drugs/Alcohol:?Drugs?Have you used drugs other than those for medical reasons in the past 12 months??No ?Alcohol Screen?Did you have a drink containing alcohol in the past year??No ?Points?0 ?Interpretation?Negative ???Miscellaneous:?Caffeine: no. ?Children: no. ?Exercise: no. ?Marital status: . ?Occupation: Retired. * Medications:?TakingMounjaro 15 MG/0.5ML Solution Auto-injector as directed Subcutaneous Fexofenadine HCl Gabapentin Ferrous Sulfate metFORMIN HCl Omeprazole Rosuvastatin Calcium Vitamin D3 Xarelto glipiZIDE 5 MG Tablet as directed Orally Once a day Doxepin HCl Losartan Potassium Metoprolol Succinate Taking Mounjaro 15 MG/0.5ML Solution Auto-injector as directed Subcutaneous Taking Fexofenadine HCl Taking Gabapentin Taking Ferrous Sulfate Taking metFORMIN HCl Taking Omeprazole Taking Rosuvastatin Calcium Taking Vitamin D3 Taking Xarelto Taking glipiZIDE 5 MG Tablet as directed Orally Once a day Taking Doxepin HCl Taking Losartan Potassium Taking Metoprolol Succinate Not-Taking/PRNInsulin Medication List reviewed and reconciled with the patientNot-Taking/PRN Insulin Medication List reviewed and reconciled with the patient * Allergies:?N.K.D.A.yes[Aller gies Verified] Objective: * Vitals:?Ht: 5 ft 10 in, Wt:2 43, BMI:34.86, Shoe size: 10.5-11, BP:128/80mm Hg, BS: 155, Ht-cm: 177.8 cm, Wt-k.22 kg. * ???Past Orders: ???Lab:HEMOGLOBIN A1C (GLYCO HEMOGLOBIN) (Order Date - 02/20/2024) (Collection Date & Time - 02/20/2024 11:13 AM) ? Value Reference Range ?TOTAL HEMOGLOBIN (HGBA1C) 6.5 * Examination: ???Orthopedic: ?MUSCLE STRENGTH:?5/5 all groups in a symmetrical fashion, B/L.?GAIT ABNORMALITY:?antalgic , apropulsive , cane-assisted.?FOOT MORPHOLOGY:?Pes Planus structure , (-) Charcot collapse/destruction noted at MTJ.?DIGITAL DEFORMITIES:?Digital contracture, PIPJ, 2-5 B/L, incompl-reducible to push-up test, no over, nor underlapping,?there is?evidence of shoe producing skin irritation.?MPJ PATHOLOGY:?Atrophied anterior fat pad, Pain, swelling, and inflammation to plantar 2nd, 3rd, 4th, MPJ(s), LEFT, No MPJ pain with ROM, [ - ] Ecchymosis.?FOOTWEAR:?worn, non-supportive, shoe gear properties exacerbate patient's foot/toe deformity.?X-Rays - IMAGING REPORT: ?Clinical Indication(s):? Evaluate for Fracture.?Views:? 3 views of Foot, AP, LAT, LO, LEFT.?Findings:?normal bone and soft tissue density consistent for patients age and sex, elongated plantarflexed [ 3rd] metatarsal with hypertrophied MTH.?Foot structure:?reveals excess pronation with , anterior break in cyme line , increased talar declination , decreased calcaneal inclination.?Fracture:?Negative fractures identified.?Vascular: ?DP PULSES (B):? 0/4, B/L.?PT PULSES (B):? 0/4, B/L.?CAPILLARY FILL TIME:? delayed, all digits, B/L.?TROPHIC CONDITION-TEXTURE/ELASTICITY/TURGOR/HAIR GROWTH (B):? decreased, fragile, thin, shiny, with sparse to absent hair growth, B/L.?TEMPERTURE GRADIENT (C):? decreased, cool to cool, proximal to distal, B/L.?PIGMENTATION:?mottled, B/L.?EDEMA (C):?absent, B/L.?CLAUDICATION (C):?denies, B/L.?REST PAIN:?denies, B/L.?PARESTHESIA (C):?absent, B/L.?BURNING (C):?absent, B/L.?Nails: ?NAILS are:?Elongated, overgrown, dystrophic, lytic, greater than 3mm thick, discolored and friable with crumbly malodorous subungual debris, with pain on palpation , TA , T5 , all other nails not described with characteristics as possessing mycosis are elongated, overgrown, and dystrophic ( T1, T2, T3, T4, T6, T7, T8, T9?).?Dermatologic: ?SKIN FINDINGS:?Skin exam reveals Keratotic lesion(s) located at , Plantar, Heel(s) , B/L.?Neuroma Pain: ?PALPATION:?No interspace pain noted on palpation, LEFT.?Neurological: ?SENSORY:?Neurological exam reveals intact sensorium, pain sensation normal, vibration sensation intact, pinprick sensation is normal in the lower extremities, Pt denies, anesthesia, burning, paresthesia, tingling, B/L.?TINEL'S COMPRESSION:? Negative tarsal tunnel, taurus pedis, and medial calcaneal nerves, Left.?Ophthalmology Referral: ?DIABETES EYE EXAM?General Examination: ?GENERAL APPEARANCE:?Reveals a pleasant, alert, well nourished, well- developed, well hydrated individual, who demonstrates proper attention to hygiene/body habitus, and is in no acute distress, Pt serves as own historian for office visit today , Pt accompanied by , , Yarely,?who serves as , additional Historian , and/who is physically present in exam room at time of visit.?ORIENTED:?person, place, and time.?FOOT EXAM:?Footwear Evaluation? Assessment: * Assessment: 1.?Pain in left ankle and zenon ints of left foot - M25.572???2.?Pain in left foot - M79.672 (Primary)???3.?Bursitis of intermetatarsal bursa of left foot - M77.52???4.?Metatarsalgia, left foot - M77.42???Specify :Chronic problem, Worse (4)???5.?Type 2 diabetes mellitus with diabetic peripheral angiopathy without gangrene - E11.51???Notes :Q7(A), Q8(2B), Q9(1B,2C)???6.?Other hammer toe(s) (acquired), right foot - M20.41???Specify :Chronic problem, Worse (4),Rx Management (4)???7.?Other hammer toe(s) (acquired), left foot - M20.42???Specify :Chronic problem, Worse (4),Rx Management (4)??? Plan: * Treatment: 2.?Other hammer toe(s) (acqu ired), right foot? Start Extra Depth Orthopedic Shoes, (1) Pair ., With (3) Pair Custom Heat Molded Multidensity Innersoles, Dx: NIDDM/PVD(E11.51), Hammertoe Foot Deformity(M20.41,M20.42), Preulcerative Skin Lesion(s)(L85.1), Wear, Daily, 365 days, 2, Refills 0.?? Notes: Patient Educated with: DIABETIC FOOT CARE INSTRUCTIONS.pdf (DIABETIC FOOT CARE INSTRUCTIONS.pdf)?? * Procedure Codes:?55599 X-RAY EXAM OF LEFT FOOT 3V, Modifiers: 26 , LT * Preventive Medicine:? ??Counseling:?BMI Care goal follow-up plan:?BMI counseling provided to patient:?Nutrition counseling ?Discussion:?-04: Office or other outpatient visit for the evaluation and management of a new patient, which required a medically appropriate history and/or examination and MODERATE level of DECISION MAKING for: 1 OR MORE CHRONIC PROBLEM(S) THATS WORSENING, 2 STABLE CHRONIC PROBLEMS, A NEWLY DIAGNOSED PROBLEM WITH UNCERTAIN PROGNOSIS, AN ACUTE COMPLICATED INJURY WITH MULTIPLE TREATMENT OPTIONS, OR AN ACUTE PROBLEM WITH ACCOMPANYING SYSTEMIC SYMPTOMS, THAT POSE(S) A MODERATE RISK OF MORBIDITY. THIS CONDITION MAY ALSO INCLUDE RX DRUG MANAGEMENT, OR A DECISON FOR MINOR SURGERY. The visit on the day of the encounter encompassed interpreting the data and educating the patient as to the nature of their condition, treatment options available according to their individual PMH, meds, allergies, and overall health/living conditions, as well as any potential risks or complications that may occur from a failure to adhere to, and participate in, the recommended course of therapy. The discussion included a complete verbal, and/or written explanation of the examination results, any x-rays taken, the proposed diagnosis, and outline of the treatment plan. A schedule for future care needs was also explained. The patient verbalized an understanding of the instructions at this time and agreed to be an active participant in their treatment. If the patient should think of any questions or concerns after the visit, I have encouraged the patient to call the office.?Digital Surgery:?Digital surgery was discussed with the patient, We elected to try conservative treatment at the present time, due to the patients medical history and increased asssociated post-operative risks.?Digital Treatment:?HT- I explained to the patient the possible etiologies of Hammertoes, including genetics/foot type/shoegear/activity level/exercise routine and the risks/benefits of all the different treatment options for their pain including: No treatment at all, Rest, Ice, New/supportive/wider/deeper Shoegear, Digital Padding/Strapping/Taping/Bracing/Gel protective sleeves, Foot/Ankle AFO Bracing, Stretching exercises, Deep Tissue Massage, Arch support/shoe inserts with splay metatarsal padding, and Custom orthoses. I insisted that any digital devices be removed daily and not worn overnight for safety. The patient is to carefully examine the toes daily for any skin irritation while using any splinting or padding device. The advantages and disadvantages of each option were discussed and the patients questions re: shoegear, padding, custom vs prefabricated inserts, activity level, and consistency in home treatment regimens for optimal success were answered to their verbally confirmed satisfaction.?Metatarsalgea:?I explained to the patient the possible etiologies of their Metatarsalgea Foot pain, including foot type/shoegear/activity level/exercise routine and the risks/benefits of all the different treatment options for pain including: No treatment at all, Rest, Ice, NSAIDs(only if well tolerated after meals), New/supportive Shoegear, Strappings and Tapings, Foot/Ankle AFO Bracing, Stretching exercises, Deep Tissue Massage, Arch support/shoe inserts, Custom orthoses, Topical analgesics including Aspercream/Voltaren gel, Physical Therapy, Cortisone injection therapy, EPAT/ESWT. Advantages and disadvantages of each option were discussed and the patients questions re: shoegear, custom vs prefabricated inserts, activity level, PO vs Topical medications (and their respective potential complications/drug interactions/side effects), and consistency in home treatment regimens for optimal success were answered to their verbally confirmed satisfaction.?Orthotics:?I explained to the patient the benefits of OT use. I explained that orthoses are medically necessary to decrease the foot pain through proper mechanical control, support of their foot, decrease pain under the painful metatarsal by supplementing the soft tissue, cushion the forefoot by supplementing the soft tissue.?P.R.I.C.E.:?The patient was counseled on the use of P.R.I.C.E. and NSAIDS (if well tolerated) to aid in the recovery from their painful condition.?Podiatric Surgery Counseling:?We elected to try conservative treatment at the present time, due to the patients age, medical history, and circulatory constraints.?Shoe Gear Counseling:?SHOE Rx - The patient was counseled in great detail on their muscoloskeletal foot and toe deformities which coincided with the dermatological presentations visualized on exam. We discussed how their deformities put the integrity of their feet at risk for potential pedal complications which makes the accomidative diabetic shoes and cutomizable inserts medically necessary. We discussed the different shoe and insert treatment types and options, as well as the important advantages for adhering to regularly wearing these accomidative devices daily. The patient was made aware of the fact that a failure to abide by these recommedations may be deleterious to their foot health as they are able to prevent many pedal complications such as skin irritation, skin ulceration, infection, and even loss of toe/foot/leg/or life. Time was also spent with the patient dispensing and discussing proper diabetic footcare techniques including daily skin moisturization, daily foot inspection for any interruption in skin integrity including open lesions, or sign of infection such as redness/malodor/drainage/swelling. Also discussed and recommended were procedures regarding daily shoe inspection for the presence of internal foreign bodies as well as any visualized irregular shoe or insert wear. Patient questions re: shoes, inserts, and self foot inspections were answered to their satisfaction as the patient verbally confirmed a full understanding of the above information. A Rx for Extra Depth Orthopedic Shoes with 3 pair of custom heat-molded inserts was dispensed.? ??Screening/Special Tests:?Fall Risk?Screening:?No falls in the past year ?FALLS: Screening for Future Fall Risk?Have you had any falls with injury in the past year??No * Follow Up:?1 Year * Images: * Sign off status: Completed true * Provider:?Jas Love DPM Date:?2023 Generated for Mervat lowry/Darek/Nicky on:?06/13/2024 11:45 AM EST History and Physical Notes * HPI (History of Present Illness) Category Sub-Category Detail Notes Category Not es Toe pain Location: B/L feet Duration: several years Course: worse Aggravated by: shoes, any pressure Treatments: change in shoes At Risk footcare Pt States Last PCP Visit: Date: 4 Foot Pain Location: Bottom, Forefoot, LEFT Duration: several years Course: worse Aggravated: any pressure , stand ing , walking Treatments: rest/alter normal da su activity Examination Category Sub-Category Detail Notes Category Not es Neuroma Pain PALPATION: No interspace pain noted on palpation, LEFT Neurological SENSORY: Neurological exa m reveals intact sensorium, pain sensation normal, vibration sensation intact, pinprick sensation is normal in the lower extremities, Pt denies, anesthesia, burning, paresthesia, tingling, B/L TINEL'S COMPRESSION: Negative tarsal naomi jagdeep, taurus pedis, and medial calcaneal nerves, Left Dermatologic SKIN FINDINGS: Skin exam reveal s Keratotic lesion(s) located at , Plantar, Heel(s) , B/L Orthopedic GAIT ABNORMALITY: antalgic , apropulsive , cane-assisted FOOT MORPHOLOGY: Pes Planus structure , (-) Charcot collapse/destruction noted at MTJ FOOTWEAR: worn, non-supportive , shoe gear properties exacerbate patient's foot/toe deformity DIGITAL DEFORMITIES: Digital contracture , PIPJ, 2-5 B/L, incompl-reducible to push-up test, no over, nor underlapping, there is evidence of shoe producing skin irritation MPJ PATHOLOGY: Atrophied anterior f at pad, Pain, swelling, and inflammation to plantar 2nd, 3rd, 4th, MPJ(s), LEFT, No MPJ pain with ROM, [ - ] Ecchymosis MUSCLE STRENGTH: 5/5 all groups in a symmetrical fashion, B/L General Examination GENERAL APPEARANCE: Reveals a pleasant, alert, well nourished, well-developed, well hydrated individual, who demonstrates proper attention to hygiene/body habitus, and is in no acute distress, Pt serves as own historian for office visit today , Pt accompanied by , , Yarely, who serves as , additional Historian , and/who is physically present in exam room at time of visit FOOT EXAM: Lower Extremity Neurological Exa m performed:: Yes Visual exam of foot performed:: Yes Date: 02/22/2024 ORIENTED: person, place, and t robyn Footwear Evaluation Footwear Evaluation performe d:: Yes Ophthalmology Referral DIABETES EYE EXAM Procedure Perform ed:: Yes ?Date of Exam Performed: 01/22/2024 Diabetic Retinopathy Screening:: Yes Findings of Diabetic Eye Exam:: no retin opathy Vascular DP PULSES (B): 0/4, B/L PT PULSES (B): 0/4, B/L CAPILLARY FILL TIME: delayed, all digits , B/L TEMPERTURE GRADIENT (C): decreased, cool to cool, proximal to distal, B/L TROPHIC CONDITION-TEXTURE/ELASTICITY/TURGOR/HAIR GROWTH (B): decreased, fragile, thin, shiny, with sp arse to absent hair growth, B/L EDEMA (C): absent, B/L CLAUDICATION (C): denies, B/L REST PAIN: denies, B/L PIGMENTATION: mottled, B/L PARESTHESIA (C): absent, B/L BURNING (C): absent, B/L Nails NAILS are: Elongated, overg rown, dystrophic, lytic, greater than 3mm thick, discolored and friable with crumbly malodorous subungual debris, with pain on palpation , TA , T5 , all other nails not described with characteristics as possessing mycosis are elongated, overgrown, and dystrophic ( T1, T2, T3, T4, T6, T7, T8, T9 ) X-Rays - IMAGING REPORT Findings: normal b one and soft tissue density consistent for patients age and sex, elongated plantarflexed [ 3rd] metatarsal with hypertrophied MTH Fracture: Negative fractures i dentified Foot structure: reveals excess prona tion with , anterior break in cyme line , increased talar declination , decreased calcaneal inclination Views: 3 views of Foot, AP, LAT, LO, LEFT Clinical Indication(s): Evaluate for Fra cture
--- OUTSIDE RECORDS SUMMARY | 2024-06-13 11:46 | XMS_ITS | Encounter Summary ---
Author Organization [employer] Address [address] [place] [address] 7 [place] [address] Care Team Providers Care Semiconductor Processing Technician Name Role Phone Jeanna Oleary MD Primary Care Provider [phone] Estefanía Cervantes PharmD Unavailable [phone] Reason for Visit * Reason Comments Med Refill Encounter Details Date Type Department Care Team (Late Contact Info) Description 07/04/2022 Refill [facility] MEDICINE [address] [place], [place] [phone] Jeanna Oleary MD [address] [place], [place] [phone] Mixed simple and mucopurulent chronic bronchitis (CMS/HCC) (Primary Dx); Type 2 diabetes mellitus with hyperglycemia, with long-term current use of insulin (CMS/HCC) Social History Tobacco Use Types Packs/Day Years Used Date Smoking Tobacco: Never Assessed Sex and Gender Information Value Date Recorded Sex Assigned at Male 03/06/2022 10:31 AM EDT Legal Sex Male 10:31 AM EDT Gender Identity Male 03/06/2022 10:31 AM EDT Sexual Orientation Straight 03/06/2022 10 :31 AM EDT documented as of this encounter Plan of Treatment Upcoming Encounters Date Type Department Care Team (Late st Contact Info) Description 06/16/2024 9:30 AM EST Medication Management [facility] MED & PEDS [address] [place], [place] [phone] Estefanía Cervantes, PharmD [address] [place], [place] [phone] 06/16/2024 10:00 AM EST Office Visit [facility] MED & PEDS [address] [place] [address] Jeanna Oleary MD [address] [place] [address] documented as of this encounter Visit Diagnoses Diagnosis Mixed simple and mucopurulent chronic bronchitis (CMS/HCC)- Primary Other chronic bronchitis Type 2 diabetes mellitus with hyperglycemia, with long-term current use of insulin (CMS/HCC) documented in this encounter Care Teams Semiconductor Processing Technician Relationship Specialty Start Date End Date Jeanna Oleary MD [address] [place] [address] PCP - General Internal Medicine 12/19/16 Estefanía Cervantes PharmD [address] [place] [phone] Pharmacist Internal Medicine 06/03/24 documented as of this encounter
--- OUTSIDE RECORDS SUMMARY | 2024-06-13 11:46 | XMS_ITS | Clinical Summary ---
Author Organization [facility] Address [address] [place] [address] Phone Care Team Providers Care Linux System Admin Name Role Phone Jeanna Oleary MD Primary Care Provider [phone] Allergies Active Allergy Reactions Criticality Noted Date Comments Hydroxyzine 08/16/2022 Other reaction(s): ITCHY Medications insulin aspart protamine-insul in aspart (NovoLOG 70/30) (70-30) 100 UNIT/ML injection Inject 1 Units under the skin in the morning and 1 Units in the evening and 1 Units before bedtime. Active metFORMIN (GLUCOPHAGE) 1000 MG tablet Take 1 tablet by mouth 2 (two) times a day Active Cholecalciferol (Vitamin D3) 25 MCG tablet Take 1 tablet by mouth 1 (one) time each day 1 Active Advair Diskus 250-50 MCG/DOSE diskus inhaler USE ONE INHALATION TWICE DAILY. RINSE MOUTH AFTER USE 1 Active Xarelto 20 MG tablet TAKE ONE TABLET EVERY EVENING WITH SUPPER 1 Active SSD 1 % cream APPLY A THIN LAYER (1/16 INCH) TO entire open AREA DAILY 1 Active triamcinolone (KENALOG) 0.1 % cream APPLY A THIN LAYER TO THE AFFECTED AREA(s) TWICE DAILY, MIX WITH cerave 1 Active Insulin Degludec (TRESIBA SC) Inject under the skin Active fexofenadine (MARIAMA) 180 MG tablet Take 180 mg by mouth 1 (one) time each day 1 Active albuterol (2.5 MG/3ML) 0.083% nebulizer solution Inhale 2.5 mg 0 Active gabapentin (NEURONTIN) 600 MG tablet Take 600 mg by mouth in the morning and 600 mg in the evening and 600 mg before bedtime. 0 Active omeprazole (PriLOSEC) [address] capsule Take 40 mg by mouth 7 Active Spiriva HandiHaler 18 MCG per inhalation capsule INHALE ONE PUFFS BY MOUTH ONCE DAILY 2 Active metoprolol succinate XL (TOPROL XL) 25 MG 24 hr tablet Take 25 mg by mouth 1 (one) time each day Do not crush or chew. Active doxepin (SINEquan) 25 MG capsule Take 50 mg by mouth every night Active furosemide (LASIX) 20 MG tablet Take 1 tablet (20 mg total) by mouth 1 (one) time each day 3 Active ferrous gluconate (FERGON) 324 (38 Fe) MG tablet Take 1 tablet (324 mg total) by mouth 1 (one) time each day with breakfast 30 tablet 5 3 Active Active Problems Problem Noted Date Diagnosed Date Hypertensive disorder 06/20/2021 Injury of kidney 06/20/2021 Pulmonary hypertension 06/20/2021 Chronic kidney disease stage 3A 11/23/2020 Resolved Problems Problem Noted Date Diagnosed Date Resolved Date Atrial fibrillation 06/20/2021 12/12/19 23 Overview (06/20/2021): 4 cardioversions Neuropathy due to diabetes mellitus 06/20/2021 12/11/2022 Dyslipidemia 06/20/2021 12/11/2022 Gastroesophageal reflux disease 06/20/2021 12/11/2022 Hyperlipidemia 06/20/2021 12/11/2022 Obesity 06/20/2021 12/11/2022 Obstructive sleep apnea syndrome 06/20/2021 12/11/2022 Old myocardial infarction 06/20/2021 Osteoarthritis 06/20/2021 12/11/2022 Type 2 diabetes mellitus 06/20/202111/2022 Tobacco user 06/20/2021 12/11/2022 Family History Medical History Relation Comments Diabetes Father Hypertension Father Hypertension Mother Relation Status Comments Father Mother Social History Tobacco Use Types Packs/Day Years Used Date Smoking Tobacco: Never Smokeless Tobacco: Never Tobacco Cessation:Counseling Given: Not Answered Alcohol Use Standard Drinks/Week Comments No 0 (1 standard drink = 0.6 oz pur e alcohol) Sex and Gender Information Value Date Recorded Sex Assigned at Not on file Legal Sex Male 4:57 PM EST Gender Identity Not on file Sexual Orientation Not on file Last Filed Vital Signs Vital Sign Reading Time Taken Comments Blood Pressure 148/64 12/11/2022 1:28 PM EDT Pulse 83 12/11/2022 1:28 PM EDT Temperature - - Respiratory Rate - - Oxygen Saturation 90% 04/17/2022 2:48 PM EST Inhaled Oxygen Concentration - - Weight 131 kg (289 lb 9.6 oz) 12/11/2022 1:28 PM EDT Height 175.3 cm (5' 9 ) 08/16/2022 3:22 PM EDT Body Mass Index 42.77 08/16/2022 3:22 PM EDT Plan of Treatment Health Maintenance Due Date Last Done Comments Colorectal Cancer Screening: Colonoscopy 07/25/2003 Colorectal Cancer Screening: Sigmoidoscopy 07/25/2003 Colorectal Cancer Screening: Annual FOBT 12/26/2023 12/25/2022 Influenza Vaccine (#1) 2024 Hepatitis B Vaccine Aged Out 03/04/2018, 12/31/2017, 11/30/2017 No longer eligible based on patient's age to complete this topic Pneumococcal Vaccine: 65+ Years Completed 01/24/2021, 01/19/2020, 11/09/2015, Additional history exists Procedures Procedure Name Priority Date/Time Associated Diagnosis Comments OCCULT BLOOD X 3, STOOL Routine 12/25/2022 2:33 PM EDT Other iron deficiency anemia from Last 3 Months or Most Recently Relevant to Health Maintenance Results * Occult blood x 3, stool (12/25/2022 2:33 PM EDT) Occult Blood, Stool #1 NEGATIVE NEGATIVE [place] STOOL OCCULT BLOOD DATE #1 12/10/22 [place] Occult Blood, Stool #2 NEGATIVE NEGATIVE [place] STOOL OCCULT BLOOD DATE #2 [place] Occult Blood, Stool #3 NEGATIVE NEGATIVE [place] Date 3 12/23/22 [place] Stool (Per Rectum) 12/25/2022 2:33 PM EDT 12/25/2022 2:33 PM EDT Filiberto Canales MD LAB BODY FLUIDS AND STOOLS ORD ERABLES Final Result [place] from Last 3 Months or Most Recently Relevant to Health Maintenance Insurance [facility] MED[facility] Care Teams Linux System Admin Relationship Specialty Start Date End Date Jeanna Oleary MD PCP - General 05/17/20
--- OUTSIDE RECORDS SUMMARY | 2024-06-13 11:46 | XMS_ITS ---
[facility] Address [address] [place] [address] Care Team Providers Care Gold Tooler Name Role Phone Richard Oleary MD Primary Care Provider Jas Sommer Unavailable [phone] Encounters Encounter Location Date Provider Diagnosis [address] [address] 02/15/2024 Jas Love Plan Of Treatment Next Appt Details Provider Name:Jas Love , 02/20/2025 09:00:00 AM, [address] [place], [address], Progress Notes * Jaime HAMLINDOB:[birth year] (68 yo M)Acc No.[id number]:02/15/2024 Progress Notes Patient:?Jaime HAMLIN Provider:?Jas Love DPM :1955???Age:68 Y???Sex:Male Giovanni e:02/15/2024 Address:[address] [place] [address] [facility] [id number] Pcp:Richard Oleary MD Subjective: * Chief Complaints: * ??? * Medical History:? Objective: * Vitals:? Assessment: Plan: * Treatment: * Images: * The named appointment provid er may or may not be the originator of this progress note, and it is not deemed complete until electronically signed by the appointment provider. Sign off status: Pending * Provider:?Jas Love DPM Date:?2023 Generated for Mervat lowry/Darek/Nicky on:?06/13/2024 11:46 AM EST
[2024-06-13 14:02] LABS: Alanine Aminotransferase 47 U/L (0-40); Alkaline Phosphatase 62 U/L (39-117); Anion Gap 16 (12-20); Aspartate Amino Transferase 46 U/L (5-37); Bilirubin Total 0.5 mg/dL (0.0-1.0); Blood Urea Nitrogen 19 mg/dL (9-16); Calcium 9.3 mg/dL (8.4-10.2); Carbon Dioxide 22 mmol/L (22-29); Chloride 104 mmol/L (96-108); Estimated Glomerular Filt Rate > 60; Glucose Random 194 mg/dL (60-115); Potassium 4.9 mmol/L (3.3-5.1); Sodium 137 mmol/L (135-145); Total Protein 7.3 g/dL (6.5-8.0)
[2024-06-13 14:22] LABS: Creatinine Urine 87.64 mg/dL; Microalbum/Creatinine Ratio Ur 513.4 ug/mg cr (<30)
[2024-06-13 14:25] LABS: Vitamin B12 704 pg/mL (200-900)
[2024-06-18 20:33] LABS: Testosterone, Total 549 ng/dL (250-1100)
== END 2024-06-13 10:44 | disposition home or self-care (01) ==
LOC: HO.HMGCLDS 10:43
PROVIDERS: Urology; PCP Internal Medicine; Visit Provider Internal Medicine
DX: E11.65 Type 2 diabetes mellitus with hyperglycemia (principal); Z79.4 Long term (current) use of insulin; E29.1 Testicular hypofunction
CPT/HCPCS: 36415; 80053; 82043; 82570; 82607; 84403

== ENCOUNTER 2024-07-02 13:29 | Outpatient (AMB) | payer MEDICARE, SELFPAY ==
[2024-07-02 13:39] VITALS: BP 128/78; PULSE 82; BMI 29.7
--- NOTE | 2024-07-02 13:39 | MHC.OFFVIS ---
Vital Signs 07/02/24 13:39 Height 5 ft 10 in Weight 207 lb 3.752 oz BMI 29.7 BP 128/78 Blood Pressure Location Lt brachial Position Sitting Pulse 82 Pulse Source Monitor Intake Visit Reasons: CLINICAL RESEARCH MONITOR/Dr. Oleary/[facility]sa Allergies oxycodone [OXYCODONE] Adverse Reaction (Intermediate, Verified 06/05/24 09:40) HALLUCINATIONS, DIZZINESS simvastatin Adverse Reaction (Intermediate, Verified 06/05/24 09:40) myalgias elevated CPK Medication List - Last Reconciled 07/02/24 by Erasmo Daily MD albuterol sulfate 90 mcg/actuation 2 puffs PO Q4H PRN blood sugar diagnostic As directed cholecalciferol (vitamin D3) 25 mcg PO DAILY doxepin 1 - 2 caps PO BEDTIME fexofenadine 180 mg PO DAILY flash glucose sensor (FreeStyle Yahir 2 Sensor kit) As directed fluticasone propion-salmeterol 250-50 mcg/dose (Advair Diskus) 1 inh inhalation BID gabapentin 800 mg PO TID hydroxyzine HCl 50 mg PO ONCE insulin syringe-needle U-100 As directed losartan 50 mg PO metformin 1,000 mg PO BID metoprolol succinate ER 25 mg PO DAILY omeprazole 40 mg PO BID pen needle, diabetic As directed rivaroxaban (Xarelto) 20 mg PO QPM rosuvastatin 40 mg PO DAILY testosterone (Testopel) 75 mg implant ONCE tirzepatide (Mounjaro) 15 mg subcut QWEEK HPI Comments Details: Jaime is here for cardiac consultation. Previously seen at [facility] but would like to switch he had because of insurance changes. He has a history of atrial fibrillation going back almost 10 years. Per records, he has had 4 ablations or so in . Since 2020, it seems that he has had persistent atrial fibrillation. It was then decided that patient would be managed mainly with rate control strategy. He was kept on beta-blockers. It seems that he has an admission around 2022 for hypotension, bradycardia and junctional rhythm with acute renal failure and briefly requiring dialysis. In that setting, his dose of beta-blockers was significantly reduced. Of note, today's EKG actually shows sinus rhythm and a prior note from 05/2023 also shows sinus rhythm. So at least for the last year he has been back in sinus rhythm. Otherwise, he has got no cardiac symptoms. No palpitations. No angina or anything else. No coronary disease history. He has been losing a lot of weight recently. In our weight history, he was as much as 315 lb in 2021. Currently 207 lb. Previously, has seen Dr. Fragoso, , at [facility]. [facility] Medical History (Updated 07/02/24 @ 14:07 by Erasmo Daily MD) PAF (paroxysmal atrial fibrillation) Hyperplastic polyps of stomach Anemia Atrial fibrillation Hypertension Hyperlipidemia Type 2 diabetes mellitus Respiratory failure with hypoxia and hypercapnia COPD (chronic obstructive pulmonary disease) Nocturnal hypoxemia TAE (obstructive sleep apnea) Obesity (BMI 30-39.9) Personal history of nicotine dependence Cervical disc herniation Erectile dysfunction Gynecomastia Hypogonadism in male Sialolithiasis of submandibular gland COVID-19 vaccine series completed Surgical History History of cardiac ablation for atrial fibrillation History of umbilical hernia repair History of vasectomy History of colonoscopy History of appendectomy History of uvulopalatopharyngoplasty History of repair of right rotator cuff History of right knee surgery History of cardioversion History of cervical discectomy History of esophagogastroduodenoscopy (EGD) H/O prior ablation treatment (04/09/20) History of penile implant History of cholecystectomy Family History Father No problems noted. Mother No problems noted. Social History Household Members: Spouse Housing: House Are you a primary child care group leader to a significant other at home: No Do you presently have visiting nurse or other home services: No Alcohol intake: current Alcohol intake frequency: a few times a month Alcohol type: beer Patient Tobacco Use Status: Former Tobacco user Tobacco use type: Cigarette Cigarette Packs Per Day: 2.5 Cigarettes Per Day: 50.0 Years Smoked: 40 Review of Systems Const Denies weakness ENT Denies dizziness Card Reports chest pain, Denies chest pain with activity, Denies syncope, Denies rapid heart rate, Denies pedal edema, Denies edema, Denies leg edema, Denies lightheadedness, Denies palpitations, Denies dyspnea, Denies dyspnea on exertion and Denies orthopnea Resp Denies cough, Denies dyspnea and Denies dyspnea on exertion GI Denies hematochezia and Denies change in stool character Musc Denies abnormal gait, Denies muscle cramps, Denies muscle weakness, Denies numbness, Denies radiating pain into limb and Denies tingling Neuro Denies abnormal gait, Denies dizziness, Denies syncope, Denies numbness, Denies tingling and Denies weakness Endo Denies palpitations Physical Exam Vital Signs: Last Vital Signs Pulse 82 07/02/24 13:39 BP 128/78 07/02/24 13:39 BMI result Body Mass Index 29.7 Const General: comfortable and no acute distress Orientation/consciousness: patient oriented x3 HEENT Other: Unremarkable Head: Yes normal to inspection Neck Neck: Yes normal visual inspection Chest Chest palpation & inspection: normal inspection of the chest Resp Auscultation: clear to auscultation bilaterally Cardio Palpation: normal PMI Heart sounds: S1 normal heart sound present, S2 normal heart sound present, no gallops, no murmurs and no rubs GI Palpation (GI): Soft to palpation Back/Spine/Pelvis Other: unremarkable Skin General skin exam: no rashes or lesions noted Neuro General: patient oriented x3 Extrem General: Yes normal to inspection Psych Mental Status: mental status grossly normal Office Procedures EKG Details: EKG with underlying sinus rhythm at 82/Min; sinus arrhythmias; right bundle-branch block pattern; [place]. [id number], Complete Assessment & Plan Assessment & Plan (1) PAF (paroxysmal atrial fibrillation): Code(s): I48.0 - Paroxysmal atrial fibrillation Category: Medical (2) Obesity (BMI 30-39.9): Code(s): E66.9 - Obesity, unspecified Category: Medical (3) Type 2 diabetes mellitus: Comment: IDDM2 Code(s): E11.9 - Type 2 diabetes mellitus without complications Category: Medical Plan Overall, many comorbidities, obesity but substantial weight loss, paroxysmal/persistent atrial fibrillation with many ablations in the past, but more recently in sinus for the last year+. Continue beta-blockers. Continue Xarelto. Last creatinine clearance > 60. As he switching to [facility], we will continue to follow him here. We will obtain an echocardiogram/Holter before his next visit. As he is losing a lot of weight, that will significantly help him with diabetes management as well as lowering cardiovascular risk. Discussed with significant other and they are in agreement with plan. Orders: Orders CA echo transthoracic complete 6 Months I48.0 - Paroxysmal atrial fibrillation ECG 3 day holter monitor 6 Months I48.0 - Paroxysmal atrial fibrillation Coding Level of Care Code New Pt Level 4 (70208) Complex EM visit Add On G2211 Diagnoses PAF (paroxysmal atrial fibrillation) I48.0 Obesity (BMI 30-39.9) E66.9 Type 2 diabetes mellitus E11.9 CPT Codes EKG - CPT: 03667-[id number], Complete ([id number])
--- OUTSIDE RECORDS SUMMARY | 2024-07-02 16:36 | XMS_ITS | Encounter Summary ---
Author Organization [employer] Address [address] [facility] 7t [place] [address] Care Team Providers Care Referral Management Liaison Name Role Phone Jeanna Oleary MD Primary Care Provider [phone] Estefanía Cervantes PharmD Unavailable [phone] Reason for Visit * Reason Comments Med Refill Encounter Details Date Type Department Care Team ([facility] st Contact Info) Description 09/14/2023 Refill [facility] MED & PEDS [address] [place], [place] [phone] Jeanna Oleary MD [address] [place] [address] Type 2 diabetes mellitus without complications (CMS/HCC) [...] Care Team (Late st Contact Info) Description 08/04/2024 9:30 AM EDT Telemedicine [facility] MED & PEDS [address] [place] [address] Estefanía Cervantes PharmD [address] [place] [address] documented as of this encounter Visit Diagnoses Diagnosis Type 2 diabetes mellitus without complications (CMS/HCC) documented in this encounter Additional Health Concerns Assessment Noted Time PHQ-9 Depression Total Score: 0 11/24/19 23 10:27 AM EDT documented as of this encounter Care Teams Referral Management Liaison Relationship Specialty Start Date End Date Jeanna Oleary MD [address] [place] [address] PCP - General Internal Medicine 12/19/16 Estefanía Cervantes PharmD [address] [place] [address] Pharmacist Internal Medicine 06/03/24 documented as of this encounter
--- OUTSIDE RECORDS SUMMARY | 2024-07-02 16:36 | XMS_ITS | Encounter Summary ---
Author Organization [employer] Address [address] [facility] 7t [place] [address] Care Team Providers Care Director Of Architecture Name Role Phone Jeanna Oleary MD Primary Care Provider [phone] Estefanía Cervantes PharmD Unavailable [phone] Encounter Details Date Type Department Care Team [...] Info) Description 08/04/2024 9:30 AM EDT Telemedicine [facility] MED & PEDS [address] [place] [address] Estefanía Cervantes PharmD [address] [place] [address] documented as of this encounter Visit Diagnoses Not on filedocumented in this encounter Additional Health Concerns Assessment Noted Time PHQ-9 Depression Total Score: 0 11/24/19 23 10:27 AM EDT documented as of this encounter Care Teams Director Of Architecture Relationship Specialty Start Date End Date Jeanna Oleary MD [address] [place] [address] PCP - General Internal Medicine 12/19/16 Estefanía Cervantes PharmD [address] [place] [address] Pharmacist Internal Medicine 06/03/24 documented as of this encounter
--- OUTSIDE RECORDS SUMMARY | 2024-07-02 16:36 | XMS_ITS | Encounter Summary ---
Author Organization [employer] Address [address] [facility] 7t [place] [address] Care Team Providers Care Book Cutter Name Role Phone Jeanna Oleary MD Primary Care Provider [phone] Estefanía Cervantes PharmD Unavailable [phone] Encounter Details Date Type Department Care Team (Late st Contact Info) Description 06/16/2024 Orders Only [facility] CHC MED & PEDS [address] [place], [place] [phone] Jeanna Oleary MD [address] [place] [address] Social History Tobacco Use Types Packs/Day Years Used Date Smoking Tobacco: Former Cigarettes Smokeless Tobacco: Never Alcohol Use Standard Drinks/Week Comments Yes 3 (1 standard drink = 0.6 oz pur e alcohol) Depression Answer Date Recorded Patient Health Questionnaire-9 Score 3 06/16/2024 Patient Health Questionnaire-9 Score 3 06/16/2024 Last PHQ-9: Questionnaire Data Not on file 0 06/16/2024 Housing Stability Answer Date Recorded What is your housing situation today? I have danielle martines 06/16/[address] you li ve. Do you have problems with any of the following? None of the above 06/16/2024 Food Insecurity Answer Date Recorded Within the past 12 months, y ou worried that your food would run out before you got money to buy more: Never True 06/16/2024 Within the past 12 months,th e food you bought just didn't last and you didn't have enough money to get more: Never True 02/2025 Transportation Answer Date Recorded In the past 12 months, has l ack of transportation kept you from medical appts, meetings, work or from getting things needed for daily living? No 06/16/2024 Utilities Answer Date Recorded In the past 12 months, has t he electric, gas, oil or water company threatened to shut off services in your home? No 06/16/2024 Depression Answer Date Recorded Patient Health Questionnaire-2 Score 3 06/16/2024 Internet Access Answer Date Recorded Internet Access Q1 Yes 06/16/2024 Internet Access Q2 Not on file 06/16/2024 Sex and Gender Information Value Date Recorded Sex Assigned at Male 03/06/2022 10:31 AM EDT Legal Sex Male 10:31 AM EDT Gender Identity Male 03/06/2022 10:31 AM EDT Sexual Orientation Straight 03/06/2022 10 :31 AM EDT documented as of this encounter Plan of Treatment Upcoming Encounters Date Type Department Care Team (Late st Contact Info) Description 08/04/2024 9:30 AM EDT Telemedicine [facility] MED & PEDS [address] [place] [address] Estefanía Cervantes, PharmD [address] [place] [address] documented as of this encounter Visit Diagnoses Not on filedocumented in this encounter Additional Health Concerns Assessment Noted Time PHQ-9 Depression Total Score: 3 06/16/19 25 10:59 AM EST documented as of this encounter Care Teams Book Cutter Relationship Specialty Start Date End Date Jeanna Oleary MD [address] [place] [address] PCP - General Internal Medicine 12/19/16 Estefanía Cervantes, PharmD [address] [place] [address] Pharmacist Internal Medicine 06/03/24 documented as of this encounter
--- OUTSIDE RECORDS SUMMARY | 2024-07-02 16:36 | XMS_ITS ---
Author Organization [facility] Address [address] [place] [address] Care Team Providers Care School Cleaner Name Role Phone Richard Oleary MD Primary Care Provider Jas Sommer [phone] REASON FOR VISIT HAM SMOKER PPWK Entered Encounters Encounter Location Date Provider Diagnosis [facility] [address] [place] [address] 11/15/2023 Jsa Love Plan Of Treatment Next Appt Details Provider Name:Jas Love , 02/20/2025 09:00:00 AM, [address] [place], [address], Progress Notes * Jaime HAMLINDOB:[birth year] (68 yo M)Acc No.[id number]:11/15/2023 Patient:?Jaime Hamlin :1955???Age:68 Y???Sex:Male Address:[address] [facility] [place], [address] * true * Date:? Generated for Printi ng/Darek/eTransmitting on:?07/02/2024 04:36 PM EST
--- OUTSIDE RECORDS SUMMARY | 2024-07-02 16:36 | XMS_ITS | Encounter Summary ---
Author Organization [employer] Address [address] [place] [address] 7 [place] [address] Care Team Providers Care Case Repairer Name Role Phone Jeanna Oleary MD Primary Care Provider [phone] Estefanía Cervantes PharmD Unavailable [phone] Reason for Referral * Consultation (Routine) - Closed Specialty Diagnoses / Procedures Referred By Contac t Referred To Contact Endocrinology Diagnoses Hypogonadism male Jeanna Oleary MD [address] [place] [address] Phone: tel: fax: [facility] [place] [address] [place] [address] Phone: tel: fax: Referral ID Status Reason Start Date Expiration Date V isits Requested Visits Authorized [id number] Closed Specialty Services Required 10/11/2023 10/10/2024 1 1 Encounter Details Date Type Department Care Team (Late st Contact Info) Description 10/11/2023 Orders Only [facility] CH[facility] MED & PEDS [address] [place] [address] Jeanna Oleary MD [address] [place] [address] Hypogonadism male (Primary Dx) Social History Tobacco [...] Info) Description 08/04/2024 9:30 AM EDT Telemedicine [facility] MED & PEDS [address] [place] [address] Estefanía Cervantes, PharmD [address] [place] [address] Scheduled Referrals Name Type Priority Associated Diagnoses [...] Testosterone, Total 94(A) 250 - 1100 ng/dL [facility] Comment:Men with clinically significant hypogonadalsymptoms and testosterone values repeatedly inthe range of the 200-300 ng/dL or less, maybenefit from testosterone treatment afteradequate risk and benefits counseling.For additional information, please refer tohttp://education.[employer]/faq/VszohIsuilnwrimuyROUZOHXJN705(This link is being provided for informational/educational purposes only.)This test was developed and its analytical performancecharacteristics have been determined by [employer] [place], [place]. It hasnot been cleared or approved by the U.S. Food and DrugAdministration. This assay has been validated pursuantto the CLIA regulations and is used for clinicalpurposes.THIS TEST WAS PERFORMED AT:[employer] [place] [address]OORHJOTLEONORA MCNEIL MD,PHD Blood Venous blood specimen / Unknown 10/16/2023 2:12 PM EDT 10/16/2023 5:54 PM EDT Jeanna Oleary MD LAB BLOOD ORDERABLES Final Result [facility] [address] [place] [address] [phone] documented in this encounter Visit Diagnoses Diagnosis Hypogonadism male- Primary Other testicular hypofunction documented in this encounter Additional Health Concerns Assessment Noted Time PHQ-9 Depression Total Score: 0 11/24/19 23 10:27 AM EDT documented as of this encounter Care Teams Case Repairer Relationship Specialty Start Date End Date Jeanna Oleary MD [address] [place] [address] PCP - General Internal Medicine 12/19/16 Estefanía Cervantes PharmD [address] [place] [address] Pharmacist Internal Medicine 06/03/24 documented as of this encounter
--- OUTSIDE RECORDS SUMMARY | 2024-07-02 16:36 | XMS_ITS | Encounter Summary ---
Author Organization [employer] Address [address] [facility] 7 [place] [address] Care Team Providers Care Tower Watchman Name Role Phone Jeanna Oleary MD Primary Care Provider [phone] Estefanía Cervantes PharmD Unavailable [phone] Encounter Details Date Type Department Care Team (Late st Contact Info) Description 12/04/2023 Orders Only [facility] CHC MED & PEDS [address] [place], [place] [phone] Jeanna Oleary MD [address] [place] [address] Class 3 severe obesity due to excess calories without serious comorbidity with body mass index (BMI) of 40.0 to 44.9 in adult (CMS/[facility]) (Primary Dx); Type 2 diabetes mellitus with hyperglycemia, with long-term current use of insulin ([facility]) Social History Tobacco Use Types Packs/Day Years [...] Info) Description 08/04/2024 9:30 AM EDT Telemedicine [facility] MED & PEDS [address] [place], [place] [phone] Estefanía Cervantes PharmD [address] [place] [address] documented as of this encounter Visit Diagnoses Diagnosis Class 3 severe obesity due to excess calories without serious comorbidity with body mass index (BMI) of 40.0 to 44.9 in adult ([facility])- Primary Type 2 diabetes mellitus with hyperglycemia, with long-term current use of insulin ([facility]) documented in this encounter Additional Health Concerns Assessment Noted Time PHQ-9 Depression Total Score: 0 11/24/19 23 10:27 AM EDT documented as of this encounter Care Teams Tower Watchman Relationship Specialty Start Date End Date Jeanna Oleary MD [address] [place], [place] [phone] PCP - General Internal Medicine 12/19/16 Estefanía Cervantes PharmD [address] [place], [place] [phone] Pharmacist Internal Medicine 06/03/24 documented as of this encounter
--- OUTSIDE RECORDS SUMMARY | 2024-07-02 16:36 | XMS_ITS | Encounter Summary ---
Author Organization [employer] Address [address] [place] [address] 7t [place] [address] Care Team Providers Care Scheduling Manager Name Role Phone Jeanna Oleary MD Primary Care Provider [phone] Estefanía Cervantes PharmD Unavailable [phone] Reason for Visit * Reason Onset Date Comments chart prep 06/12/2024 Encounter Details Date Type Department Care Team ([facility] st Contact Info) Description 06/12/2024 Telephone [facility] CHC MED & PEDS [address] [place], [place] [phone] Jeanna Oleary MD [address] [place] [address] chart prep Social History Tobacco Use Types [...] Info) Description 08/04/2024 9:30 AM EDT Telemedicine [facility] CHC MED & PEDS [address] [place], [place] [phone] Estefanía Cervantes, PharmD [address] [place] [address] documented as of this encounter Visit Diagnoses Not on filedocumented in this encounter Additional Health Concerns Assessment Noted Time PHQ-9 Depression Total Score: 0 11/24/19 23 10:27 AM EDT documented as of this encounter Care Teams Scheduling Manager Relationship Specialty Start Date End Date Jeanna Oleary MD [address] [place], [place] [phone] PCP - General Internal Medicine 12/19/16 Estefanía Cervantes PharmD [address] [place], [place] [phone] Pharmacist Internal Medicine 06/03/24 documented as of this encounter
--- OUTSIDE RECORDS SUMMARY | 2024-07-02 16:36 | XMS_ITS | Encounter Summary ---
Author Organization [employer] Address [address] [place] [address] 7 [place] [address] Care Team Providers Care Nursing Agency Manager Name Role Phone Jeanna Oleary MD Primary Care Provider [phone] Estefanía Cervantes PharmD Unavailable [phone] Reason for Referral * Consultation (Routine) - Authorized Specialty Diagnoses / Procedures Referred By Contac t Referred To Contact Cardiology Diagnoses Atrial fibrillation with rapid ventricular response (CMS/HCC) Jeanna Oleary MD [address] [place] [address] Phone: tel: fax: Erasmo Daily MD [address] [place] [address] Phone: tel: fax: Referral ID Status Reason Start Date Expiration Date Visits Requested Visits Authorized [id number] Authorized Specialty Services Required 03/20/2025 1 1 Encounter Details Date Type Department Care Team (Late st Contact Info) Description 03/20/2024 Orders Only [facility] CHC MED & PEDS [address] [place], [place] [phone] Jeanna Oleary MD [address] [place] [address] Atrial fibrillation with rapid ventricular response (CMS/HCC) [...] Info) Description 08/04/2024 9:30 AM EDT Telemedicine [facility] MED & PEDS [address] [place] [address] Estefanía Cervantes, PharmD [address] [place] [address] Scheduled Referrals Name Type Priority Associated Diagnoses [...] documented as of this encounter Care Teams Nursing Agency Manager Relationship Specialty Start Date End Date Jeanna Oleary MD [address] [place] [phone] PCP - General Internal Medicine 12/19/16 Estefanía Cervantes PharmD [address] [place] [address] Pharmacist Internal Medicine 06/03/24 documented as of this encounter
--- OUTSIDE RECORDS SUMMARY | 2024-07-02 16:36 | XMS_ITS | Encounter Summary ---
Author Organization [employer] Address [address] [facility] 7 [place] [address] Care Team Providers Care Hydrometer Tester Name Role Phone Jeanna Oleary MD Primary Care Provider [phone] Estefanía Cervantes PharmD Unavailable [phone] Encounter Details Date Type Department Care Team (Late st Contact Info) Description 01/29/2024 Orders Only [facility] CHC MED & PEDS [address] [place], [place] [phone] Jeanna Oleary MD 505 [place] [address] Class 3 severe obesity due to excess calories without serious comorbidity with body mass index (BMI) of 40.0 to 44.9 in adult ([facility]) (Primary Dx); Type 2 diabetes mellitus with hyperglycemia, with long-term current use of insulin ([facility]) Social History Tobacco Use Types Packs/Day [...] Info) Description 08/04/2024 9:30 AM EDT Telemedicine [facility] MED & PEDS [address] [place], [place] [phone] Estefanía Cervantes PharmD [address] [place] [address] documented as of this encounter Visit Diagnoses Diagnosis Class 3 severe obesity due to excess calories without serious comorbidity with body mass index (BMI) of 40.0 to 44.9 in adult ([facility])- Primary Type 2 diabetes mellitus with hyperglycemia, with long-term current use of insulin ([facility]) documented in this encounter Additional Health Concerns Assessment Noted Time PHQ-9 Depression Total Score: 0 11/24/19 23 10:27 AM EDT documented as of this encounter Care Teams Hydrometer Tester Relationship Specialty Start Date End Date Jeanna Oleary MD [address] [place], [place] [phone] PCP - General Internal Medicine 12/19/16 Estefanía Cervantes PharmD [address] [place], [place] [phone] Pharmacist Internal Medicine 06/03/24 documented as of this encounter
--- OUTSIDE RECORDS SUMMARY | 2024-07-02 16:36 | XMS_ITS | Encounter Summary ---
Author Organization [employer] Address [address] [facility] 7t [place] [address] Care Team Providers Care Chip Tester Name Role Phone eJanna Oleary MD Primary Care Provider [phone] Estefanía Cervantes PharmD Unavailable [phone] Encounter Details Date Type Department Care Team (Late st Contact Info) Description 09/05/2023 Orders Only [facility] CHC MED & PEDS [address] [place], [place] [phone] Jeanna Oleary MD [address] [place] [address] Hyperkalemia (Primary Dx); Type 2 diabetes mellitus with hyperglycemia, with long-term current use of insulin ([facility]); Erectile disorder Social History Tobacco Use Types [...] Info) Description 08/04/2024 9:30 AM EDT Telemedicine [facility] MED & PEDS [address] [place] [address] Estefanía Cervantes PharmD [address] [place] [address] Scheduled Orders Name Type Priority Associated Diagnoses [...] Testosterone, Total 98(A) 250 - 1100 ng/dL [facility] Comment:Men with clinically significant hypogonadalsymptoms and testosterone values repeatedly inthe range of the 200-300 ng/dL or less, maybenefit from testosterone treatment afteradequate risk and benefits counseling.For additional information, please refer tohttp://education.[employer]/faq/EowsdOctbppxbfhraXKCJZHFGL034(This link is being provided for informational/educational purposes only.)This test was developed and its analytical performancecharacteristics have been determined by [employer], [place]. It hasnot been cleared or approved by the U.S. Food and DrugAdministration. This assay has been validated pursuantto the CLIA regulations and is used for clinicalpurposes. Testosterone, Free 14.7(A) 35.0 - 155.0 pg/mL [facility] Comment:This test was develo ped and its analytical performancecharacteristics have been determined by [employer], [place]. It hasnot been cleared or approved by the U.S. Food and DrugAdministration. This assay has been validated pursuantto the CLIA regulations and is used for clinicalpurposes.THIS TEST WAS PERFORMED AT:[employer]/[facility] [place] [address]UTOUSBJLEONORA MCNEIL MD,PHD Blood Venous blood specimen / Unknown 10/03/2023 12:52 PM EDT 10/03/2023 4:32 PM EDT Jeanna Oleary MD LAB BLOOD ORDERABLES Final Result [facility] [address] [place] [address] [phone] documented in this encounter Visit Diagnoses Diagnosis Hyperkalemia- Primary Hyperpotassemia Type 2 diabetes mellitus with hyperglycemia, with long-term current use of insulin ([facility]) Erectile disorder documented in this encounter Additional Health Concerns Assessment Noted Time PHQ-9 Depression Total Score: 0 11/24/19 23 10:27 AM EDT documented as of this encounter Care Teams Chip Tester Relationship Specialty Start Date End Date Jeanna Oleary MD [address] [place] [address] PCP - General Internal Medicine 12/19/16 Estefanía Cervantes PharmD [address] [place] [address] Pharmacist Internal Medicine 06/03/24 documented as of this encounter
--- OUTSIDE RECORDS SUMMARY | 2024-07-02 16:36 | XMS_ITS | Encounter Summary ---
Author Organization [employer] Address 75 [facility] 7t [place] [address] Care Team Providers Care Pmp Project Manager Name Role Phone Jeanna Oleary MD Primary Care Provider [phone] Estefanía Cervantes PharmD Unavailable [phone] Encounter Details Date Type Department Care Team (Late st Contact Info) Description 09/20/2023 Orders Only [facility] CHC MED & PEDS [address] [place], [place] [phone] Jeanna Oleary MD [address] [place] [address] Type 2 diabetes mellitus with hyperglycemia, with long-term current use of insulin ([facility]) (Primary Dx) Social History Tobacco Use Types [...] 08/04/2024 9:30 AM EDT Telemedicine [facility] MED & PEDS [address] [place] [address] Estefanía Cervantes PharmD [address] [place] [address] documented as of this encounter Visit Diagnoses Diagnosis Type 2 diabetes mellitus with hyperglycemia, with long-term current use of insulin ([facility])- Primary documented in this encounter Additional Health Concerns Assessment Noted Time PHQ-9 Depression Total Score: 0 11/24/19 23 10:27 AM EDT documented as of this encounter Care Teams Pmp Project Manager Relationship Specialty Start Date End Date Jeanna Oleary MD [address] [place] [address] PCP - General Internal Medicine 12/19/16 Estefanía Cervantes, DayneD [address] [place], [place] [phone] Pharmacist Internal Medicine 06/03/24 documented as of this encounter
--- OUTSIDE RECORDS SUMMARY | 2024-07-02 16:36 | XMS_ITS | Encounter Summary ---
Author Organization [employer] Address [address] [facility] 7t [place] [address] Care Team Providers Care Research Soil Scientist Name Role Phone Jeanna Oleary MD Primary Care Provider [phone] Estefanía Cervantes PharmD Unavailable [phone] Encounter Details Date Type Department Care Team (Late st Contact Info) Description 11/07/2023 Orders Only [facility] CHC MED & PEDS [address] [place], [place] [phone] Jeanna Oleary MD [address] [place] [address] Type 2 diabetes mellitus with hyperglycemia, with long-term current use of insulin ([facility]) (Primary Dx) Social History Tobacco Use Types Packs/Day Years Used Date Smoking Tobacco: Former Cigarettes Smokeless Tobacco: Never Alcohol Use Standard Drinks/Week Comments Yes 3 (1 standard drink = 0.6 oz pur e alcohol) Depression Answer Date Recorded Patient Health Questionnaire-9 Score 0 11/23/2022 Housing Stability Answer Date Recorded What is your housing situation today? I have danielel martines 02/21/[address] you [...] [facility] MED & PEDS [address] [place] [address] Estefanía Cervantes PharmD [address] [place] [address] documented as of this encounter Visit Diagnoses Diagnosis Type 2 diabetes mellitus with hyperglycemia, with long-term current use of insulin ([facility])- Primary documented in this encounter Additional Health Concerns Assessment Noted Time PHQ-9 Depression Total Score: 0 11/24/19 23 10:27 AM EDT documented as of this encounter Care Teams Research Soil Scientist Relationship Specialty Start Date End Date Jeanna Oleary MD [address] [place] [address] PCP - General Internal Medicine 12/19/16 Estefanía Cervantes, DayneD [address] [place], [place] [phone] Pharmacist Internal Medicine 06/03/24 documented as of this encounter
--- OUTSIDE RECORDS SUMMARY | 2024-07-02 16:36 | XMS_ITS | Encounter Summary ---
Author Organization [employer] Address [address] [facility] 7t [place] [address] Care Team Providers Care Occupational Health Manager Name Role Phone Jeanna Oleary MD Primary Care Provider [phone] Estefanía Cervantes PharmD Unavailable [phone] Encounter Details Date Type Department Care Team ([facility] st Contact Info) Description 06/13/2024 Orders Only [facility] CHC MED & PEDS 505 [place], [place] [phone] Jeanna Oleary MD [address] [place] [address] Social History Tobacco Use Types Packs/Day Years [...] Info) Description 08/04/2024 9:30 AM EDT Telemedicine [facility] MED & PEDS [address] [place] [address] Estefanía Cervantes, PharmD [address] [place] [address] documented as of this encounter Procedures Procedure Name Priority Date/Time Associated Diagnosis Comments ALBUMIN, RANDOM URINE W/CREATININE Routine 06/13/2024 10:55 AM EST TESTOSTERONE, TOTAL, MALES (ADULT), [place] Routine 06/13/2024 10:47 AM EST VITAMIN B12 Routine 06/13/2024 10:47 AM EST COMPREHENSIVE METABOLIC PANEL Routine 06/13/2024 10:47 AM EST documented in this encounter Results * (ABNORMAL) Albumin, Random Urine W/Creatinine (06/13/2024 10:55 AM EST) Creatinine, Urine 87.64 mg/dL [facility] Microalbumin Urine 450.0 mg/L [facility] Microalbum Creatinine Ratio Ur 513.4(H) <30 ug/mg cr [facility] Comment:Albumin/Creatinine R atio Reference Ranges: Normal: < 30 ug/mg creatinine Microalbuminuria: 30 - 300 ug/mg creatinineClinical Albuminuria: > 300 ug/mg creatinine 06/13/2024 10:5 5 AM EST 06/13/2024 1:21 PM EST us Jeanna Oleary MD LAB URINE ORDERABLES Final Result Performing Organization Address [facility]/ZIP Co de Phone Number [facility] [address] [place] [phone] * Testosterone, Total, males (Adult), IA (06/13/2024 10:47 AM EST) Testosterone, Total 549 250 - 1100 ng/dL [facility] Comment:Men with clinically significant hypogonadalsymptoms and testosterone values repeatedly inthe range of the 200-300 ng/dL or less, maybenefit from testosterone treatment afteradequate risk and benefits counseling.For additional information, please refer tohttp://education.[employer]/faq/ZlrykMmgxbcbcjpgxXAMKFRMES327(This link is being provided for informational/educational purposes only.)This test was developed and its analytical performancecharacteristics have been determined by [employer] [place], [place]. It hasnot been cleared or approved by the U.S. Food and DrugAdministration. This assay has been validated pursuantto the CLIA regulations and is used for clinicalpurposes.THIS TEST WAS PERFORMED AT:[employer]/[facility] [place] [address]APWOFCULEONORA MCNEIL MD,PHD 06/13/2024 10:4 7 AM EST 06/13/2024 1:31 PM EST us Generic External Data Provider LAB BLOOD ORDERAB LES Final Result Performing Organization Address City/[facility]/ZIP Co de Phone Number [facility] [address] [place] [phone] * Vitamin B12 (06/13/2024 10:47 AM EST) Vitamin B12 704 200 - 900 pg/mL [facility] Comment:NORMAL 200-900 PG/ML INDETERMINATE 160-199 PG/ML DEFICIENT < 160 PG/ML 06/13/2024 10:4 7 AM EST 06/13/2024 1:31 PM EST us Jeanna Oleary MD LAB BLOOD ORDERABLES Final Result [facility] [address] [place] [address] [phone] * (ABNORMAL) Comprehensive Metabolic Panel (06/13/2024 10:47 AM EST) Sodium 137 135 - 145 mmol/L [facility] Potassium 4.9 3.3 - 5.1 mmol/L [facility] Chloride 104 96 - 108 mmol/L [facility] Carbon Dioxide 22 22 - 29 mmol/L [facility] Anion Gap 16 12 - 20 [facility] Urea Nitrogen (BUN) 19(H) 9 - 16 mg/dL [facility] Creatinine, Serum 0.84 0.5 - 1.4 mg/dL [facility] Estimated Glomerular Filt Rate >60 [facility] Comment:Chronic Kidney Disea se: Estimated GFR < 60 mL/min/1.37s2Nehbgh Kidney Disease: Estimated GFR < 15 mL/min/1.73m2 Glucose 194(H) 60 - 115 mg/dL [facility] Calcium 9.3 8.4 - 10.2 mg/dL [facility] Bilirubin, Total 0.5 0.0 - 1.0 mg/dL [facility] Aspartate Amino Transferase 46(H) 5 - 37 U/L [facility] Alanine Aminotransferase 47(H) 0 - 40 U/L [facility] Total Protein 7.3 6.5 - 8.0 g/dL [facility] Albumin Level 4.0 3.5 - 5.0 g/dL [facility] Alkaline Phosphatase 62 39 - 117 U/L [facility] 06/13/2024 10:4 7 AM EST 06/13/2024 1:31 PM EST Jeanna Oleary MD LAB BLOOD ORDERABLES Final Result [facility] [address] [place] [address] [phone] documented in this encounter Visit Diagnoses Not on filedocumented in this encounter Additional Health Concerns Assessment Noted Time PHQ-9 Depression Total Score: 0 11/24/19 10:27 AM EDT documented as of this encounter Care Teams Occupational Health Manager Relationship Specialty Start Date End Date Jeanna Oleary MD [address] [place] [address] PCP - General Internal Medicine 12/19/16 Estefanía Cervantes PharmD [address] [place] [address] Pharmacist Internal Medicine 06/03/24 documented as of this encounter
--- OUTSIDE RECORDS SUMMARY | 2024-07-02 16:36 | XMS_ITS | Encounter Summary ---
Author Organization [employer] Address [address] [place] [address] 7 [place] [address] Care Team Providers Care Wire Tinner Name Role Phone Jeanna Oleary MD Primary Care Provider [phone] Estefanía Cervantes PharmD Unavailable [phone] Reason for Referral * Imaging (Routine) - Authorized Specialty Diagnoses / Procedures Referred By Contac t Referred To Contact Radiology Diagnoses Transaminitis Procedures US Abdomen Complete Jeanna Oleary MD [address] [place] [address] Phone: tel: fax: [address] Phone: tel: fax: Referral ID Status Reason Start Date Expiration Date V isits Requested Visits Authorized [id number] Authorized 06/16/2024 06/16/2025 1 1 Reason for Visit * Reason Comments Diabetes Hypertension Encounter Details Date Type Department Care Team (Late st Contact Info) Description 06/16/2024 10:00 AM EST Office Visit [facility] CHC MED & PEDS [address] [place] [address] Jeanna Oleary MD [address] [place] [address] Benign hypertension (Primary Dx); Type 2 diabetes mellitus with hyperglycemia, with long-term current use of insulin ([facility]); Transaminitis Social History Tobacco Use Types Packs/Day Years [...] Sign Reading Time Taken Comments Blood Pressure 129/74 06/16/2024 10:17 AM EST Pulse 83 06/16/2024 10:17 AM EST Temperature 36.8 ??C (98.3 ??F) 06/16/2024 10:[address] Respiratory Rate 20 06/16/2024 10:17 AM EST Oxygen Saturation 97% 06/16/2024 10:17 AM EST Inhaled Oxygen Concentration - - Weight 98.4 kg (217 lb) 06/16/2024 10:17 AM EST Height 175.3 cm (5' 9 ) 06/16/2024 10:17 AM EST Body Mass Index 32.05 06/16/2024 10:17 AM EST documented in this encounter Progress Notes * Jeanna Oleary MD - 06/16/2024 10:00 AM EST Subjective Patient ID: Jaime Hamlin is a 68 y.o. male who presents for Diabetes and Hypertension. Diabetes He presents for his follow-up diabetic visit. He has type 2 diabetes mellitus. Pertinent negatives for hypoglycemia include no headaches or sweats. Pertinent negatives for diabetes include no blurredvision, no chest pain, no fatigue, no foot paresthesias, no foot ulcerations, no polydipsia, no polyphagia, no polyuria, no visual change, no weakness and no weight loss. Hypertension This is a chronic problem. The problem is controlled. Pertinent negatives include no anxiety, blurred vision, chest pain, headaches, malaise/fatigue, neck pain, orthopnea, palpitations, peripheral edema, PND, shortness of breath or sweats. Pt is compliant to his meds. No reported side effect. Has lost overall 61 lb in the last 8 months which represents more than 20 % of his initial weight. Feels well. Has been able to move more and to be more active at home. Patient Active Problem List Diagnosis Atrial fibrillation with rapid ventricular response (CMS/HCC) Benign hypertension Chronic obstructive lung disease (CMS/HCC) Diabetic neuropathy (CMS/HCC) Gastric polyposis Gastroesophageal reflux disease Obstructive sleep apnea syndrome Obesity Injury of kidney Hyperlipidemia Osteoarthritis Pulmonary hypertension (CMS/HCC) Stage 3a chronic kidney disease (CMS/HCC) Type 2 diabetes mellitus (CMS/HCC) Current Outpatient Medications on File Prior to Visit Medication Sig Dispense Refill BD Pen Needle Anny U/F 32G X 4 MM misc USE FOUR DAILY 90 each 5 cholecalciferol (Vitamin D-3) 25 MCG tablet TAKE ONE TABLET DAILY 90 tablet 1 Continuous Glucose Photograph Tinter (FreeStyle Yahir 2 [place]) device Scan sensor every 8 hours 1 each 0 Continuous Glucose Sensor (FreeStyle Yahir 2 Plus Sensor) misc 1 each Once per day. 2 each 11 doxepin (SINEquan) 25 MG capsule TAKE 1 TO 2 CAPSULES EVERY NIGHT AT BEDTIME 60 capsule 5 Ferrous Sulfate (iron) 325 (65 Fe) MG tablet TAKE ONE TABLET EVERY DAY 30 tablet 3 fexofenadine (Yadira) 180 MG tablet TAKE ONE TABLET BY MOUTH EVERY DAY 90 tablet 1 Fluticasone-Salmeterol (Advair Diskus) 250-50 MCG/ACT aerosol powder USE ONE INHALATION TWICE DAILY. RINSE MOUTH AFTER USE 60 each 5 furosemide (Lasix) 20 MG tablet TAKE ONE TABLET TWICE DAILY 180 tablet 1 gabapentin (Neurontin) 800 MG tablet TAKE ONE TABLET BY MOUTH THREE TIMES DAILY 270 tablet 1 glipiZIDE (Glucotrol) 5 MG tablet Take 1 tablet (5 mg) by mouth before breakfast and before eveningmeal. TAKE 4 TABLETS Twice daily before meals 180 tablet 3 glucose-vitamin C 4-6 GM-MG oral gel 1 tab as needed if FS less than 70 mg/dl hydrOXYzine HCl (Atarax) 50 MG tablet TAKE ONE TABLET FOUR TIMES DAILY 120 tablet 5 losartan (Cozaar) 25 MG tablet Take 1 tablet (25 mg) by mouth Once per day. 90 tablet 3 metFORMIN (Glucophage) 1000 MG tablet TAKE ONE TABLET TWICE DAILY 180 tablet 2 metoprolol succinate XL (Toprol-XL) 25 MG 24 hr tablet TAKE ONE TABLET EVERY MORNING 90 tablet 3 Mounjaro 15 MG/0.5ML solution auto-injector INJECT 15 SUBCUTANEOUSLY ONCE A WEEK 2 mL 3 nystatin (Mycostatin) 012404 UNIT/GM powder APPLY TO THE AFFECTED AREA(S) TWICE DAILY 60 g 2 omeprazole (PriLOSEC) [address] capsule TAKE ONE CAPSULE BY MOUTH TWICE DAILY BEFORE MEALS 180 capsule 3 OneTouch Ultra Test test strip TEST BLOOD SUGAR SIX TIMES DAILY 200 strip 5 Ostomy Supplies (Skin Prep Wipes) [facility] To wipe the skin prior to applying the sensor 2 times a month 50 each 11 rosuvastatin (Crestor) 40 MG tablet TAKE ONE TABLET BY MOUTH EVERY DAY 90 tablet 5 Spiriva HandiHaler 18 MCG inhalation capsule USE 1 CAPSULE FOR INHALATION ONCE A DAY DO NOT SWALLOW CAPSULE 30 capsule 6 triamcinolone (Kenalog) 0.1 % cream APPLY A THIN LAYER TO THE AFFECTED AREA(s) TWICE DAILY, MIX WITH cerave cream 80 g 5 Xarelto 20 MG tablet TAKE ONE TABLET DAILY WITH SUPPER 90 tablet 3 No current facility-administered medications on file prior to visit. Review of Systems Constitutional: Negative for fatigue, malaise/fatigue and weight loss. Eyes: Negative for blurred vision. Respiratory: Negative for shortness of breath. Cardiovascular: Negative for chest pain, palpitations, orthopnea and PND. Endocrine: Negative for polydipsia, polyphagia and polyuria. Musculoskeletal: Negative for neck pain. Neurological: Negative for weakness and headaches. Objective BP 129/74 (BP Location: Left arm, Patient Position: Sitting, BP Cuff Size: Adult long) Pulse 83 Temp 98.3 ??F (36.8 ??C) (Oral) Resp 20 Ht 5' 9 (1.753 m) Wt 217 lb (98.4 kg) SpO2 97% BMI 32.05 kg/m?? Physical Exam Constitutional: General: He is not in acute distress. Appearance: Normal appearance. He is obese. He is not ill-appearing, toxic- appearing or diaphoretic. Cardiovascular: Rate and Rhythm: Normal rate. Pulmonary: Effort: Pulmonary effort is normal. Abdominal: General: There is distension. Palpations: Abdomen is soft. Neurological: Mental Status: He is alert. Assessment/Plan Diagnoses and all orders for this visit: Benign hypertension Comments: Stable BP is controlled No change DASH diet Type 2 diabetes mellitus with hyperglycemia, with long-term current use of insulin ([facility]) Comments: Stable. A1c at goal: 6.6% No reported episode of hypoglycemia No change in management. Orders: - POCT Glucose - POCT HGB A1C Transaminitis - US Abdomen Complete; Future - Hepatitis A,B,C Profile; Future documented in this encounter Plan of Treatment Upcoming Encounters Date Type Department Care Team (Late st Contact Info) Description 08/04/2024 9:30 AM EDT Telemedicine [facility] CHC MED & PEDS [address] [place], [place] [phone] Estefanía Cervantes, PharmD [address] [place], [place] [phone] Scheduled Orders Name Type Priority Associated Diagnoses Orde r Schedule US Abdomen Complete Imaging Routine Transaminitis Expected: 06/16/2024, Expires: 06/16/2025 Hepatitis A,B,C Profile Lab Routine Transaminitis Expected: 06/16/2024, Expires: 06/16/2025 documented as of this encounter Procedures Procedure Name Priority Date/Time Associated Diagnosis Comments POCT GLYCATED HEMOGLOBIN, TOTAL Routine 06/16/2024 10:39 AM EST Type 2 diabetes mellitus with hyperglycemia, with long-term current use of insulin ([facility]) POCT GLUCOSE Routine 06/16/2024 10:38 AM EST Type 2 diabetes mellitus with hyperglycemia, with long-term current use of insulin ([facility]) documented in this encounter Results * (ABNORMAL) POCT HGB A1C (06/16/2024 10:39 AM EST) Hemoglobin A1C 6.6(A) 4.0 - 6.0 % QC Media Lot # [id number] Lot# Expiration Date [id number] Blood 06/16/2024 10:3 9 AM EST Jeanna Oleary MD POINT OF CARE TEST ENTER/ED IT ORDERABLES Final Result * POCT Glucose (06/16/2024 10:38 AM EST) Glucose Blood, POC 176 60 - 200 mg/dL QC Media Lot # [id number] Lot# Expiration Date [id number] Comment:random Blood Capillary blood specimen / Unknown 06/16/2024 10:38 AM EST Jeanna Oleary MD POINT OF CARE TEST ENTER/ED IT ORDERABLES Final Result documented in this encounter Visit Diagnoses Diagnosis Benign hypertension- Primary Essential hypertension, benign Type 2 diabetes mellitus with hyperglycemia, with long-term current use of insulin ([facility]) Transaminitis Nonspecific elevation of levels of transaminase or lactic acid dehydrogenase (LDH) documented in this encounter Additional Health Concerns Assessment Noted Time PHQ-9 Depression Total Score: 3 06/16/19 25 10:59 AM EST documented as of this encounter Care Teams Wire Tinner Relationship Specialty Start Date End Date Jeanna Oleary MD [address] [place] [address] PCP - General Internal Medicine 12/19/16 Estefanía Cervantes PharmD [address] [place] [address] Pharmacist Internal Medicine 06/03/24 documented as of this encounter
--- OUTSIDE RECORDS SUMMARY | 2024-07-02 16:36 | XMS_ITS | Encounter Summary ---
Author Organization [employer] Address [address] [facility] 7t [place] [address] Care Team Providers Care Project Product Manager Name Role Phone Jeanna Oleary MD Primary Care Provider [phone] Estefanía Cervantes PharmD Unavailable [phone] Reason for Visit * Reason Onset Date Comments Referral 11/13/2023 Encounter Details Date Type Department Care Team (Late st Contact Info) Description 11/13/[address] [facility] MEDICINE [address] [place] [address] Jeanna Oleary MD [address] [place] [address] Referral Social History Tobacco Use Types Packs/Day [...] 11/14/2023 10:06 AM EDT Referral faxed to [facility] as requested. * Telephone Encounter - Gene Kumari - 11/13/2023 2:59 PM EDT Tc from pt requesting for Podiatry [facility] [place] [facility] to location being easier. documented in this encounter Plan of Treatment Upcoming Encounters Date Type Department Care Team (Late st Contact Info) Description 08/04/2024 9:30 AM EDT Telemedicine [facility] CHC MED & PEDS [address] [place] [address] Estefanía Cervantes, PharmD [address] [place] [address] documented as of this encounter Visit Diagnoses Not on filedocumented in this encounter Additional Health Concerns Assessment Noted Time PHQ-9 Depression Total Score: 0 11/24/19 23 10:27 AM EDT documented as of this encounter Care Teams Project Product Manager Relationship Specialty Start Date End Date Jeanna Oleary MD [address] [place] [address] PCP - General Internal Medicine 12/19/16 Estefanía Cervantes, Gianni [address] [place] [address] Pharmacist Internal Medicine 06/03/24 documented as of this encounter
--- OUTSIDE RECORDS SUMMARY | 2024-07-02 16:36 | XMS_ITS | Encounter Summary ---
Author Organization [employer] Address [address] [facility] 7t [place] [address] Care Team Providers Care Engine Test Cell Technician Name Role Phone Jenana Oleary MD Primary Care Provider [phone] Estefanía Cervantes PharmD Unavailable [phone] Reason for Visit * Reason Comments Med Refill Encounter Details Date Type Department Care Team ([facility] st Contact Info) Description 06/03/2024 Refill [facility] CHC MED & PEDS [address] [place], [place] [phone] Jeanna Oleary MD [address] [place] [address] Pruritus, unspecified; Pruritus, unspecified Social History Tobacco [...] Description 08/04/2024 9:30 AM EDT Telemedicine [facility] MED & PEDS [address] [place] [address] Estefanía Cervantes PharmD [address] [place] [address] documented as of this encounter Visit Diagnoses Diagnosis Pruritus, unspecified documented in this encounter Additional Health Concerns Assessment Noted Time PHQ-9 Depression Total Score: 0 11/24/19 23 10:27 AM EDT documented as of this encounter Care Teams Engine Test Cell Technician Relationship Specialty Start Date End Date Jeanna Oleary MD [address] [place] [address] PCP - General Internal Medicine 12/19/16 Estefanía Cervantes PharmD [address] [place] [address] Pharmacist Internal Medicine 06/03/24 documented as of this encounter
--- OUTSIDE RECORDS SUMMARY | 2024-07-02 16:36 | XMS_ITS | Encounter Summary ---
Author Organization [employer] Address [address] [facility] 7t [place] [address] Care Team Providers Care Rectifier Operator Name Role Phone Jeanna Oleary MD Primary Care Provider [phone] Estefanía Cervantes PharmD Unavailable [phone] Reason for Visit * Reason Comments Med Refill Encounter Details Date Type Department Care Team (Late st Contact Info) Description 07/01/2024 Refill [facility] MEDICINE [address] [place] [address] Jeanna Oleary MD [address] [place] [address] Vitamin D deficiency; Type 2 diabetes mellitus with diabetic neuropathy, unspecified (CMS/HCC) Social History Tobacco Use Types Packs/Day [...] your housing situation today? I have danielle conrad 06/16/[address] you li [...] Info) Description 08/04/2024 9:30 AM EDT Telemedicine [facility] MED & PEDS [address] [place] [address] Estefanía Cervantes PharmD [address] [place] [address] documented as of this encounter Visit Diagnoses Diagnosis Vitamin D deficiency Type 2 diabetes mellitus with diabetic neuropathy, unspecified (CMS/HCC) documented in this encounter Additional Health Concerns Assessment Noted Time PHQ-9 Depression Total Score: 3 06/16/19 10:59 AM EST documented as of this encounter Care Teams Rectifier Operator Relationship Specialty Start Date End Date Jeanna Oleary MD [address] [place], [place] [phone] PCP - General Internal Medicine 12/19/16 Estefanía Cervantes PharmD [address] [place] [address] Pharmacist Internal Medicine 06/03/24 documented as of this encounter
--- OUTSIDE RECORDS SUMMARY | 2024-07-02 16:36 | XMS_ITS | Encounter Summary ---
Author Organization [employer] Address [address] [facility] 7t [place] [address] Care Team Providers Care Trust Operations Assistant Name Role Phone Jeanna Oleary MD Primary Care Provider [phone] Estefanía Cervantes PharmD Unavailable [phone] Encounter Details Date Type Department Care Team (Late st Contact Info) Description 01/01/2024 Orders Only [facility] CHC MED & PEDS [address] [place], [place] [phone] Jeanna Oleary MD [address] [place] [address] Type 2 diabetes mellitus with hyperglycemia, with long-term current use of insulin ([facility]) (Primary Dx) Social History Tobacco [...] Info) Description 08/04/2024 9:30 AM EDT Telemedicine [facility] MED & PEDS [address] [place] [address] Estefanía Cervantes PharmD [address] [place] [address] documented as of this encounter Visit Diagnoses Diagnosis Type 2 diabetes mellitus with hyperglycemia, with long-term current use of insulin ([facility])- Primary documented in this encounter Additional Health Concerns Assessment Noted Time PHQ-9 Depression Total Score: 0 11/24/19 23 10:27 AM EDT documented as of this encounter Care Teams Trust Operations Assistant Relationship Specialty Start Date End Date Jeanna Oleary MD [address] [place] [address] PCP - General Internal Medicine 12/19/16 Estefanía Cervantes, DayneD [address] [place], [place] [phone] Pharmacist Internal Medicine 06/03/24 documented as of this encounter
--- OUTSIDE RECORDS SUMMARY | 2024-07-02 16:36 | XMS_ITS | Encounter Summary ---
Author Organization [employer] Address [address] [facility] 7t [place] [address] Care Team Providers Care Drawer In Dobby Loom Name Role Phone Jeanna Oleary MD Primary Care Provider [phone] Estefanía Cervantes PharmD Unavailable [phone] Encounter Details Date Type Department Care Team (Latest Contact Info) Description 06/16/2024 Travel Social History Tobacco Use Types Packs/Day [...] Info) Description 08/04/2024 9:30 AM EDT Telemedicine [facility] CHC MED & PEDS [address] [place] [address] Estefanía Cervantes PharmD [address] [place] [address] documented as of this encounter Visit Diagnoses Not on filedocumented in this encounter Additional Health Concerns Assessment Noted Time PHQ-9 Depression Total Score: 3 06/16/19 25 10:59 AM EST documented as of this encounter Care Teams Drawer In Dobby Loom Relationship Specialty Start Date End Date Jeanna Oleary MD [address] [place] [address] PCP - General Internal Medicine 12/19/16 Estefanía Cervantes, DayneD [address] [place] [address] Pharmacist Internal Medicine 06/03/24 documented as of this encounter
--- OUTSIDE RECORDS SUMMARY | 2024-07-02 16:36 | XMS_ITS | Encounter Summary ---
Author Organization [employer] Address [address] [facility] 7 [place] [address] Care Team Providers Care Marketing Services Coordinator Name Role Phone Jeanna Oleary MD Primary Care Provider [phone] Estefanía Cervantes PharmD Unavailable [phone] Reason for Visit * Consultation (Routine) - Pending Review Specialty Diagnoses / Procedures Referred By Contac t Referred To Contact Pharmacy Diagnoses Type 2 diabetes mellitus with hyperglycemia, with long-term current use of insulin (CMS/HCC) Jeanna Oleary MD [address] [place] [address] Phone: tel: fax: Referral ID Status Reason Start Date Expiration Date Visits Requested Visits Authorized [id number] Pending Review Consult and Treat 05/28/2024 05/28/2025 6 6 Encounter Details Date Type Department Care Team ([facility] st Contact Info) Description 06/03/2024 9:30 AM EST Telemedicine [facility] CHC MED & PEDS [address] [place] [address] Estefanía Cervantes, PharmD [address] [place] [address] Type 2 diabetes mellitus with hyperglycemia, with [...] is allergic to hydroxyzine. Read/Write: Yes, in [place] Recent Hospitalizations: No Social History as reported [...] denies Type 2 Diabetes Previous patient of [facility] DM educator, last visit 04/28/24 (televisit) Confirms using Mounjaro, sugars have been great and reports patient has lost 72 lbs Reports having glipizide Just in case ; for example going to [place] in July for family birthday celebration, may use glipizide before any cheat food Denies any high readings in the past 2 weeks Pertinent negatives include polyuria, polydipsia, blurred vision CGM: Freestyle Yahir 2 This will be discontinued in January, change to 2 plus Patient wants to use phone rather than reader - [id number] denies experiencing hypoglycemia (<70mg/dL) Hypertension Patient reports being aware of hyperkalemia but was unsure if this needed to be followed up on Saw renal on 04/07/24, advised to stay on low potassium diet Reports monitoring BP daily, 118/79mmHg and HR 78bpm this morning Complains of needing to cut 50mg of losartan in half Prescription is written as 50mg 1/2 tablet daily, however there are 25mg tablets available Pertinent negatives include chest pain, headache, blurry [...] invalid; pt is 68 y/o Preferred Pharmacy: [facility] - [facility] - [address] [place] [address] Aron LEWIS [phone] Assessment/Plan: Type 2 Diabetes Pharmacologic Therapy: Glipizide [...] needed. When fillable, will call patient for [employer] anne marie teaching. Patient to get updated lab work next time they come to the health center. Follow up in [facility] in 1-2 weeks for next steps. Education: Healthy diet and lifestyle. Discussed role [...] again to ensure safety of continuing losartan. Sent losartan prescription as 25mg 1 tablet daily as patient did not like cutting the 50mg tablets in half. Follow up in [facility] in 1-2 weeks for next steps Education: Counseling provided to [facility] daily & log results for review in follow up. Reviewed BP goals, patient instructed to call if extremes of BP are noted prior to next scheduled visit. documented in this encounter Plan of Treatment Upcoming Encounters Date Type Department Care Team (Late st Contact Info) Description 08/04/2024 9:30 AM EDT Telemedicine [facility] CHC MED & PEDS [address] [place] [address] Estefanía Cervantes PharmD [address] [place] [address] Scheduled Orders Name Type Priority Associated Diagnoses Orde r Schedule Comprehensive Metabolic Panel Lab Routine Type 2 diabetes mellitus with hyperglycemia, with long-term current use of insulin ([facility]) Expected: 06/03/2024 (Approximate), Expires: 06/03/2025 Albumin, Random [...] hyperglycemia, with long-term current use of insulin ([facility])- Primary Benign hypertension Essential hypertension, benign documented in this encounter Additional Health Concerns Assessment Noted Time PHQ-9 Depression Total Score: 0 11/24/19 23 10:27 AM EDT documented as of this encounter Care Teams Marketing Services Coordinator Relationship Specialty Start Date End Date Jeanna Oleary MD [address] [place] [address] PCP - General Internal Medicine 12/19/16 Estefanía Cervantes, DayneD [address] [place], [place] [phone] Pharmacist Internal Medicine 06/03/24 documented as of this encounter
--- OUTSIDE RECORDS SUMMARY | 2024-07-02 16:37 | XMS_ITS | Encounter Summary ---
Author Organization [employer] Address [address] [place] [address] 7 [place] [address] Care Team Providers Care Passenger Agent Name Role Phone Jeanna Oleary MD Primary Care Provider [phone] Estefanía Cervantes PharmD Unavailable [phone] Reason for Visit * Reason Comments Med Refill Encounter Details Date Type Department Care Team (Late Contact Info) Description 07/04/2022 Refill [facility] MEDICINE [address] [place], [place] [phone] Jeanna Oleary MD [address] [place], [place] [phone] Mixed simple and mucopurulent chronic bronchitis (CMS/HCC) [...] Info) Description 08/04/2024 9:30 AM EDT Telemedicine [facility] CHC MED & PEDS [address] [place], [place] [phone] Estefanía Cervantes, PharmD [address] [place], [place] [phone] documented as of this encounter Visit Diagnoses Diagnosis Mixed simple and mucopurulent chronic bronchitis (CMS/HCC)- Primary Other chronic bronchitis Type 2 diabetes mellitus with hyperglycemia, with long-term current use of insulin (CMS/HCC) documented in this encounter Care Teams Passenger Agent Relationship Specialty Start Date End Date Jeanna Oleary MD [address] [place] [address] PCP - General Internal Medicine 12/19/16 Estefanía Cervantes PharmD [address] [place] [address] Pharmacist Internal Medicine 06/03/24 documented as of this encounter
--- OUTSIDE RECORDS SUMMARY | 2024-07-02 16:37 | XMS_ITS | Patient Health Record ---
Author Organization [facility] [place] Address [address] [place] [address] Care Team Providers Care Saute Chef Name Role Phone Richard Oleary MD Primary Care Provider Jas Sommer Unavailable [phone] Allergies No Known Allergies Results Component Value [...] Problem Acquired hammer toe of right foot (6033930018939 105) Other hammer toe(s) (acquired), right foot (M20.41) Active confirmed Problem Acquired hammer toe of left foot (9028497001282 103) Other hammer toe(s) (acquired), left foot (M20.42) Active confirmed Problem Type 2 diabetes mellitus with peripheral angiopathy (246456703) Type 2 diabetes mellitus with diabetic peripheral angiopathy without gangrene (E11.51) Active confirmed Q7(A), Q8(2B), Q9(1B,2C) Vital Signs Blood pressure diastolic 80 mm Hg 02/22/2024 Height 5 ft 10 in in 02/22/2024 Blood pressure systolic 128 mm Hg 02/22/2024 Weight 243 lbs 02/22/2024 BMI 34.86 kg/m2 02/22/2024 [facility]counters [facility]counter [facility] [address] [facility]/22[facility] Jas Love Pain in left foot M79.672 ; Pain in left ankle and joints of left foot M25.572 ; Bursitis of intermetatarsal bursa of left foot M77.52 ; Metatarsalgia, left foot M77.42 ; Type 2 diabetes mellitus with diabetic peripheral angiopathy without gangrene E11.51 ; Other hammer toe(s) (acquired), right foot M20.41 and Other hammer toe(s) (acquired), left foot M20.[facility] [address] 11/15/2023 Jas Love Assessments Encounter Date Diagnosis [...] Name:Jas Sutton Ivan , 02/20/2025 09:00:00 AM, [address] [place] [address], [id number], Insurance Providers Payer Name Payer Address Payer Phone Subscriber Number Group Number Insured Name Patient Relationship to Insured Coverage Start Date Coverage End Date Medicare National [employer] [address] [facility] [place] [address] [id number] Jaime Hamlin Self - patient is the insured 7 [employer] [address] [place] [address] [id number] Jaime Hamlin Self - patient is the insured Medical (General) History Medical History History ICD Code covid-19 Diabetic Heart disease High blood pressure Kidney disease Reflux ( GERD) Stomach ulcer Surgical History Surgery Date(Month/Year) Gall bladder removal
--- OUTSIDE RECORDS SUMMARY | 2024-07-02 16:37 | XMS_ITS ---
Author Organization [facility] [place] Address [address] [place] [address] Care Team Providers Care Painter And Paperhanger Apprentice Name Role Phone Richard Oleary MD Primary Care Provider Jas Sommer Unavailable [phone] Allergies No Known Allergies REASON FOR VISIT [...] Type 2 diabetes mellitus with peripheral angiopathy (987062139) Type 2 diabetes mellitus with diabetic peripheral angiopathy without gangrene (E11.51) Active confirmed Q7(A), Q8(2B), Q9(1B,2C) Problem Acquired hammer toe of right foot (1241804744316 105) Other hammer toe(s) (acquired), right foot (M20.41) Active confirmed Problem Acquired hammer toe of left foot (0380206873528 103) Other hammer toe(s) (acquired), left foot (M20.42) Active confirmed Vital Signs Height 5 ft 10 in in 02/22/2024 Weight 243 lbs 02/22/2024 BMI 34.86 kg/m2 02/22/2024 Blood pressure systolic 128 mm Hg 02/22/20 24 Blood pressure diastolic 80 mm Hg 024 Encounters Encounter Location Date Provider Diagnosis [facility] [address] [address] 02/22/2024 Jas Ivan Pain in left foot [...] Provider Name:Jas Love , 02/20/2025 09:00:00 AM, [address] [place] [address], [phone], Progress Notes * Jaime HAMLINDOB:[birth year] (68 yo M)Acc No.[id number]:02/22/2024 Progress Notes Patient:?Jaime HAMLIN Provider:?Jas Love DPM :1955???Age:68 Y???Sex:Male Giovanni e:02/22/2024 Address:[address] [place], [place] [id number] Pcp:Richard Oleary MD Subjective: * Chief Complaints: [...] medial calcaneal nerves, Left.?Ophthalmology Referral: ?DIABETES EYE EXAM?Procedure Performed:?Yes ?Date of Exam Performed?01/22/2024 ?Diabetic Retinopathy Screening:?Yes ?Findings of Diabetic Eye Exam:?no retinopathy?General Examination: ?GENERAL APPEARANCE:?Reveals a pleasant, alert, well nourished, well- developed, well hydrated individual, who demonstrates proper attention to hygiene/body habitus, and is in no acute distress, Pt serves as own historian for office visit today , Pt accompanied by , , Yarely,?who serves as , additional Historian , and/who is physically present in exam room at time of visit.?ORIENTED:?person, place, and time.?FOOT EXAM:?Lower Extremity Neurological Exam performed:?Yes ?Visual exam of foot performed:?Yes ?Date?02/22/2024 ?Footwear Evaluation?Footwear Evaluation performed:?Yes??? Assessment: * Assessment: 1.?Pain in left ankle [...] INSTRUCTIONS.pdf (DIABETIC FOOT CARE INSTRUCTIONS.pdf)?? * Procedure Codes:?64567 X-RAY EXAM OF LEFT FOOT 3V, Modifiers: [...] Love DPM Date:?2023 Generated for Mervat lowry/Darek/Nicky on:?07/02/2024 04:37 PM EST History and Physical Notes * HPI [...]
--- OUTSIDE RECORDS SUMMARY | 2024-07-02 16:37 | XMS_ITS ---
[facility] [place] Address [address] [place] [address] Care Team Providers Care Animator Name Role Phone Richard Oleary MD Primary Care Provider Jas Sommer Unavailable [phone] Encounters Encounter Location Date Provider Diagnosis [address] [address] 02/15/2024 Jas Love Plan Of Treatment Next Appt Details Provider Name:Jas Love , 02/20/2025 09:00:00 AM, [address] [place], [address], Progress Notes * Jaime HAMLINDOB:[birth year] (68 yo M)Acc No.[id number]:02/15/2024 Progress Notes Patient:?Jaime HAMLIN Provider:?Jas Love DPM :1955???Age:68 Y???Sex:Male Giovanni e:02/15/2024 Address:[address] [place] [address] [facility] [id number] Pcp:Richard Oleary MD Subjective: * Chief Complaints: * ??? * Medical History:? Objective: * Vitals:? Assessment: Plan: * Treatment: * Images: * The named appointment provid er may or may not be the originator of this progress note, and it is not deemed complete until electronically signed by the appointment provider. Sign off status: Pending * Provider:Olivia Love DPM Date:?2023 Generated for Mervat lowry/Darek/Nicky on:?07/02/2024 04:37 PM EST
--- OUTSIDE RECORDS SUMMARY | 2024-07-02 16:37 | XMS_ITS | Clinical Summary ---
Author Organization [employer] Address [address] [place] [address] 7[address] [place] [address] Care Team Providers Care Custom Stock Maker Name Role Phone Jeanna Oleary MD Primary Care Provider [phone] Estefanía Cervantes PharmD Unavailable [phone] Allergies Active Allergy Reactions Criticality Noted Date [...] 90 tablet 5 024 Active nystatin (Mycostatin) 732077 UNIT/GM powder APPLY TO THE AFFECTED AREA(S) TWICE DAILY 60 g 2 024 Active Fluticasone-Salm eterol (Advair Diskus) 250-50 MCG/ACT aerosol powder USE ONE INHALATION TWICE DAILY. RINSE MOUTH AFTER USE 60 each 5 024 Active Continuous Glucose Park Maintainer (FreeStyle Yahir 2 Alexis) deviceIndication s:Type 2 diabetes mellitus with hyperglycemia, with long-term current use of insulin ([facility]) Scan sensor every 8 hours 1 each Active OneTouch Ultra Test test stripIndications :Type 2 diabetes mellitus without complications ([facility] TEST BLOOD SUGAR SIX TIMES DAILY 200 strip 5 Active Ostomy Supplies (Skin Prep Wipes) miscIndications: Type 2 diabetes mellitus with hyperglycemia, with long-term current use of insulin ([facility]) To wipe the skin prior to applying the sensor 2 times a month 50 each Active Spiriva HandiHaler 18 MCG inhalation capsuleIndicatio ns:Mixed simple and mucopurulent chronic bronchitis ([facility]) USE 1 CAPSULE FOR INHALATION ONCE A DAY DO NOT SWALLOW CAPSULE 30 capsule 6 Active BD Pen Needle Anny U/F 32G X 4 MM miscIndications: Type 2 diabetes mellitus with diabetic neuropathy, unspecified ([facility]) USE FOUR DAILY 90 each 5 024 2024 Active furosemide (Lasix) 20 MG tablet TAKE ONE TABLET TWICE DAILY 180 tablet 1 Active glipiZIDE (Glucotrol) 5 MG tabletIndication s:Type 2 diabetes mellitus with hyperglycemia, with long-term current use of insulin ([facility]) Take 1 tablet (5 mg) by mouth [...] TABLET DAILY WITH SUPPER 90 tablet 3 Active Mounjaro 15 MG/0.5ML solution auto-injectorInd ications:Class 3 severe obesity due to excess calories without serious comorbidity with body mass index (BMI) of 40.0 to 44.9 in adult ([facility]),Type 2 diabetes mellitus with hyperglycemia, with long-term current use of insulin ([facility]) INJECT 15 SUBCUTANEOUSLY ONCE A WEEK 2 [...] hyperglycemia, with long-term current use of insulin ([facility]) 1 each Once per day. 2 each 025 Active losartan (Cozaar) 25 MG tabletIndication s:Benign hypertension Take 1 tablet (25 mg) by mouth Once per day. 90 tablet 3 025 Active cholecalciferol (Vitamin D-3) 25 MCG tabletIndication s:Vitamin D deficiency TAKE ONE TABLET DAILY 90 tablet 1 025 Active metFORMIN (Glucophage) 1000 MG tabletIndication s:Type 2 diabetes mellitus with diabetic neuropathy, unspecified ([facility]) TAKE ONE TABLET TWICE DAILY 180 tablet 2 025 Active Sure Comfort Insulin Syringe 31G [...] 2 diabetes mellitus with diabetic neuropathy, unspecified ([facility]) INJECT 30-40 UNITS SUBCUTANEOUSLY BEFORE BREAKFAST, 40-50 [...] hyperglycemia, with long-term current use of insulin ([facility]) Apply 1 sensor every 14 days 2 each 024 2024 Discontinued(A lternate therapy) metFORMIN (Glucophage) 1000 MG tabletIndication s:Type 2 diabetes mellitus with diabetic neuropathy, unspecified ([facility]) TAKE ONE TABLET TWICE DAILY 180 tablet 2 024 2024 Discontinued doxepin (SINEquan) 25 MG capsuleIndicatio ns:Pruritus, unspecified TAKE 1 TO 2 CAPSULES EVERY NIGHT AT BEDTIME 60 capsule 5 024 2024 Discontinued hydrOXYzine HCl (Atarax) 50 MG tabletIndication s:Pruritus, unspecified TAKE ONE TABLET FOUR TIMES DAILY 120 tablet 5 024 2024 Discontinued cholecalciferol (Vitamin D-3) 25 MCG tabletIndication s:Vitamin D deficiency TAKE ONE TABLET DAILY 90 tablet 1 024 2024 Discontinued FeroSul 325 (65 Fe) [...] Encounters Date Type Department Care Team Description 07/01/2024 Refill [facility] MEDICINE [address] [place] [address] Jeanna Oleary MD Vitamin D deficiency; Type 2 diabetes mellitus with diabetic neuropathy, unspecified ([facility]/HCC) 06/16/2024 10:00 AM EST Office Visit [facility] [address] [place] [address] Jeanna Oleary MD Benign hypertension (Primary Dx); Type 2 diabetes mellitus with hyperglycemia, with long-term current use of insulin ([facility]); Transaminitis 06/16/2024 Orders Only [facility] [address] [place] [address] Jeanna Oleary MD 06/16/2024 Travel 06/13/2024 Orders Only [facility] [address] [place] [address] Jeanna Oleary MD 06/12/2024 Telephone [facility] [address] [place] [address] Jeanna Oleary MD chart prep 06/03/2024 9:30 AM EST Telemedicine [facility] [address] [place] [address] Estefanía Cervantes PharmD Type 2 diabetes mellitus with hyperglycemia, with long-term current use of insulin ([facility]) (Primary Dx); Benign hypertension 06/03/2024 Travel 06/03/2024 Refill [facility] [address] [place] [address] Jeanna Oleary MD Pruritus, unspecified; Pruritus, unspecified 05/28/2024 Orders Only [facility] [address] [place] [address] Jeanna Oleary MD Type 2 diabetes mellitus with hyperglycemia, with long-term current use of insulin ([facility]) (Primary Dx) 05/28/2024 Telephone [facility] [address] [place] [phone] Jeanna Oleary MD 05/16/2024 Telephone [facility] [address] [place] [address] Jeanna Oleary MD Prior Authorization (Mounalysha) 05/14/2024 Refill [facility] [address] [place] [address] Jeanna Oleary MD Class 3 severe obesity due to excess calories without serious comorbidity with body mass index (BMI) of 40.0 to 44.9 in adult ([facility]); Type 2 diabetes mellitus with hyperglycemia, with long-term current use of insulin ([facility]/HCC) 04/28/2024 11:30 AM EST Clinical Support [facility] [address] [place] [address] Mateusz Aguilar, MINNA Visit for suture removal (Primary Dx) 04/28/2024 9:00 AM EST Telemedicine [facility] DIABETES/NTRN [address] [place] [address] Consuelo Lovelace, MINNA Type 2 diabetes mellitus with other neurologic complication, without long-term current use of insulin ([facility]) 04/28/2024 Telephone [facility] [address] [place] [address] Jeanna Oleary MD 04/28/2024 Travel 04/24/2024 9:00 AM EST Telemedicine [facility] DIABETES/NUTRITION [address] [place] [address] Consuelo Lovelace RN Type 2 diabetes mellitus with other neurologic complication, without long-term current use of insulin (CMS/HCC) 04/24/2024 Orders Only GENERIC EXTERNAL DATA DEPARTMENT Provider, Generic External Data 04/24/2024 Travel 04/22/2024 10:00 AM EST Clinical Support [facility] DIABETES/NTRN [address] [place] [address] Consuelo Lovelace RN Type 2 diabetes mellitus with other neurologic complication, without long-term current use of insulin (CMS/HCC) 04/22/2024 9:00 AM EST Office Visit [facility] [address] [place] [address] Jeanna Oleary MD Epidermoid cyst (Primary Dx) 04/22/2024 Travel 04/17/2024 10:00 AM EST Telemedicine [facility] DIABETES/NUTRITION [address] [place] [address] Consuelo Lovelace RN Type 2 diabetes mellitus with other neurologic complication, without long-term current use of insulin (CMS/HCC) 04/17/2024 Travel 04/15/2024 9:00 AM EST Telemedicine [facility] DIABETES/NTRN [address] [place] [address] Consuelo Lovelace RN Type 2 diabetes mellitus with other neurologic complication, without long-term current use of insulin (CMS/HCC) 04/15/2024 Travel 04/10/2024 9:00 AM EST Telemedicine [facility] DIABETES/NUTRITION [address] [place] [address] Consuelo Lovelace RN Type 2 diabetes mellitus with other neurologic complication, without long-term current use of insulin (CMS/HCC) 04/10/2024 Travel 04/08/2024 9:30 AM EST Telemedicine [facility] DIABETES/NTRN [address] [place] [address] Consuelo Lovelace RN Type 2 diabetes mellitus with other neurologic complication, without long-term current use of insulin ([facility]) 04/08/2024 Travel 04/07/2024 Refill [facility] MEDICINE [address] [place] [address] Jeanna Oleary MD 04/01/2024 9:00 AM EST Telemedicine [facility] DIABETES/NTRN [address] [place] [address] Consuelo Lovelace RN Type 2 diabetes mellitus with other neurologic complication, without long-term current use of insulin ([facility]) 04/01/2024 Travel from Last 3 Months Immunizations Name [...] Mass Index 32.05 06/16/2024 10:17 AM EST Plan of Treatment Upcoming Encounters Date Type Department Care Team (Late st Contact Info) Description 08/04/2024 9:30 AM EDT Telemedicine [facility] MED & PEDS [address] [place] [address] Estefanía Cervantes, PharmD [address] [place], [place] [phone] Health Maintenance Due Date Last Done Comments CT Colonography 1954 FIT DNA/Cologuard 1954 FIT 1955 FOBT 1955 Sigmoidoscopy 1954 Diabetes: Foot Exam 1964 Hepatitis C Screening 1972 Hepatitis B Vaccines (3 of 3 - 19+ 3-dose series) 06/02/2018 03/04/2018, 12/31/2017, 11/30/2017 Eye Exam 02/08/2024 02/07/2023 Lipid Panel 11/25/2024 11/26/2023 Diabetes: Hemoglobin A1C 12/14/2024 025, 02/20/2024, 11/01/2023, Additional history exists Alcohol/Substance Use Screening 06/16/2025 06/16/2024 Depression Screening 06/16/2025 06/16/2024, 06/16/19 25 SDOH Screening 06/16/2025 06/16/2024 Tobacco Screening 06/16/2025 06/16/2024 DTaP/Tdap/Td Vaccines (2 - Td or Tdap) [...] hyperglycemia, with long-term current use of insulin ([facility]) POCT GLUCOSE Routine 06/16/2024 10:38 AM EST Type 2 diabetes mellitus with hyperglycemia, with long-term current use of insulin ([facility]) ALBUMIN, RANDOM URINE W/CREATININE Routine 06/13/2024 10:55 AM EST TESTOSTERONE, TOTAL, MALES (ADULT), IA Routine 06/13/2024 10:47 AM EST VITAMIN B12 Routine 06/13/2024 10:47 AM EST COMPREHENSIVE METABOLIC PANEL Routine 06/13/2024 10:47 AM EST LDCT LUNG SCREENING Routine 05/21/2024 6 :59 AM EST SUTURE REMOVAL Routine 04/28/2024 11:46 AM EST Visit for suture removal TESTOSTERONE, TOTAL, MALES (ADULT), IA Routine 04/24/2024 11:21 AM EST INCISE AND DRAIN ABSCESS Routine 04/22/2024 11:12 AM EST Epidermoid cyst LIPID PANEL, STANDARD Routine 11/26/2023 8:45 AM EDT COLONOSCOPY Routine 02/15/2023 HM DIABETES EYE EXAM Routine 02/07/2023 from Last 3 Months or Most Recently Relevant to Health Maintenance Results * (ABNORMAL) POCT HGB A1C (06/16/2024 10:39 AM EST) Hemoglobin A1C 6.6(A) 4.0 - 6.0 % QC Media Lot # [id number] Lot# Expiration Date [id number] Blood 06/16/2024 10:3 9 AM EST Jeanna Oleary MD POINT OF CARE TEST ENTER/ED IT ORDERABLES Final Result * POCT Glucose (06/16/2024 10:38 AM EST) Glucose Blood, POC 176 60 - 200 mg/dL QC Media Lot # [id number] Lot# Expiration Date [id number] Comment:random Blood Capillary blood specimen / Unknown 06/16/2024 10:38 AM EST Jeanna Oleary MD POINT OF CARE TEST ENTER/ED IT ORDERABLES Final Result * (ABNORMAL) Albumin, Random Urine W/Creatinine (06/13/2024 10:55 AM EST) Creatinine, Urine 87.64 mg/dL [facility] Microalbumin Urine 450.0 mg/L [facility] Microalbum Creatinine Ratio Ur 513.4(H) <30 ug/mg cr [facility] Comment:Albumin/Creatinine R atio Reference Ranges: Normal: < 30 ug/mg creatinine Microalbuminuria: 30 - 300 ug/mg creatinineClinical Albuminuria: > 300 ug/mg creatinine 06/13/2024 10:5 5 AM EST 06/13/2024 1:21 PM EST us Jeanna Oleary MD LAB URINE ORDERABLES Final Result Performing Organization Address [facility] Co de Phone Number [facility] [address] [place] [phone] * Testosterone, Total, males (Adult), [place] (06/13/2024 10:47 AM EST) Only the most recent of2 resultswithin the time period is included. Testosterone, Total 549 250 - 1100 ng/dL [facility] Comment:Men with clinically significant hypogonadalsymptoms and testosterone values repeatedly inthe range of the 200-300 ng/dL or less, maybenefit from testosterone treatment afteradequate risk and benefits counseling.For additional information, please refer [email or web address]/[email or web address](This link is being provided for informational/educational purposes only.)This test was developed and its analytical performancecharacteristics have been determined by [employer] [place], [place]. It hasnot been cleared or approved by the U.S. Food and DrugAdministration. This assay has been validated pursuantto the CLIA regulations and is used for clinicalpurposes.THIS TEST WAS PERFORMED AT:[facility] [place] [address]BULTFGWLEONORA MCNEIL MD,PHD 06/13/2024 10:4 7 AM EST 06/13/2024 1:31 PM EST us Generic External Data Provider LAB BLOOD ORDERAB LES Final Result Performing Organization Address City/[facility]/ZIP Co de Phone Number [facility] [address] [place] [phone] * Vitamin B12 (06/13/2024 10:47 AM EST) Vitamin B12 704 200 - 900 pg/mL [facility] Comment:NORMAL 200-900 PG/ML INDETERMINATE 160-199 PG/ML DEFICIENT < 160 PG/ML 06/13/2024 10:4 7 AM EST 06/13/2024 1:31 PM EST us Jeanna Oleary MD LAB BLOOD ORDERABLES Final Result [facility] [address] [place] [phone] * (ABNORMAL) Comprehensive Metabolic Panel (06/13/2024 10:47 AM EST) Sodium 137 135 - 145 mmol/L [facility] Potassium 4.9 3.3 - 5.1 mmol/L [facility] Chloride 104 96 - 108 mmol/L [facility] Carbon Dioxide 22 22 - 29 mmol/L [facility] Anion Gap 16 12 - 20 [facility] Urea Nitrogen (BUN) 19(H) 9 - 16 mg/dL [facility] Creatinine, Serum 0.84 0.5 - 1.4 mg/dL [facility] Estimated Glomerular Filt Rate >60 [facility] Comment:Chronic Kidney Disea se: Estimated GFR < 60 mL/min/1.45n1Yakkro Kidney Disease: Estimated GFR < 15 mL/min/1.73m2 Glucose 194(H) 60 - 115 mg/dL [facility] Calcium 9.3 8.4 - 10.2 mg/dL [facility] Bilirubin, Total 0.5 0.0 - 1.0 mg/dL [facility] Aspartate Amino Transferase 46(H) 5 - 37 U/L [facility] Alanine Aminotransferase 47(H) 0 - 40 U/L [facility] Total Protein 7.3 6.5 - 8.0 g/dL [facility] Albumin Level 4.0 3.5 - 5.0 g/dL [facility] Alkaline Phosphatase 62 39 - 117 U/L [facility] 06/13/2024 10:4 7 AM EST 06/13/2024 1:31 PM EST us Jeanna Oleary MD LAB BLOOD ORDERABLES Final Result [facility] [address] [facility] [place] [phone] * CT Lung Screening Low dose (05/21/2024 6:59 AM EST) Anatomical Region Laterality Modality Lung Computed Tomogra phy 05/21/2024 6:59 AM EST Narrative 05/21/2024 7:01 AM EST ? [facility] ?[address] ?[place] [address] ? CT Scan Report ? Signed ? Patient: Jaime Hamlin ?MR#: [id number] ?? [id number] ? : 1955 ?Acct:[id number] ? Age/Sex: 68 / M ?ADM Date: 05/20/24 ? Loc: HO.CT ? Attending Dr: Mercy Youssef PA-C ? Ordering Physician: Mercy Youssef PA-C ?? Date of Service: 05/20/24 ?? Procedure(s): CT lung screening ?? Accession Number(s): [id number] ? cc: Jeanna Oleary MD; Mercy Youssef PA-C ? Report Number: ?? [id number]: Total DLP = ?? 76.00 mGy-cm ? [...] document has been electronically signed by: Jordan Bcuk MD on ?? 05/21/2024 06:59:39 ? Dictated By: ?Jordan Buck MD ? Signed By: ?<Electronically signed by Jordan Buck MD in OV> ? 01/15/25 0700 ? DD/ 8 ? TD/TT: 05/21/24658 ? Hvac Designer: ? Procedure Note Tracey, Image - 05/21/[address] [place] [address] [address] Scan Report Signed Patient: Jaime Hamlin JMR#: [id number] : 5Acct:[id number] Age/Sex: 68 / MADM Date: 05/20/24 Loc: HO.CT Attending Dr: Mercy Youssef PA-C Ordering Physician: Mercy Youssef PA-C Date of Service: 05/20/24 Procedure(s): CT lung screening Accession Number(s): [id number] cc: Jeanna Oleary MD; Mercy Youssef PA-C Report Number: [id number]: Total DLP = 76.00 mGy-cm CLINICAL HISTORY: [...] in OV> 05/21/24 0700 DD/ 8 TD/TT: 05/21/2459 Hvac Designer: [facility] External Provider IMG CT PROCEDURES Edited Result [...] sutures were placed. Both sutures removed today. us Jeanna Oleary MD IN CLINIC/BEDSIDE ORDERABLE S Final Result * Incise and drain abscess (04/22/2024 11:12 AM EST) Jeanna Hernandez MD - 04/22/2024 11:12 AM EST Jeanna [...] No ?Instructions and paperwork completed: Yes ?? [place] protocol: ??Procedure explained and questions answered to [...] CLINIC/BEDSIDE ORDERABLE S Final Result * (ABNORMAL) Lipid Panel, Standard (11/26/2023 8:45 AM EDT) Triglycerides 155(H) <150 mg/dL [facility] Comment:Desirable Triglyceri de: less than 150 mg/dLBorderline High Triglyceride 150-199 mg/dLHigh Triglyceride: 200-499 mg/dLVery High Triglyceride: greater than or equal to 5OO mg/dL Cholesterol 99 <200 mg/dL [facility] Comment:Desirable Cholestero l: less than 200 mg/dLBorderline High Cholesterol: 200-239 mg/dLHigh Cholesterol: greater than 239 mg/dL LDL Cholesterol Calculated 32 <100 mg/dL [facility] Comment:Desirable LDL: less than 100 mg/dLNear Optimal/Above Optimal LDL: 110- 129 mg/dLBorderline High LDL: 130-159 mg/dLHigh LDL: 160-189 mg/dLVery High LDL: greater than or equal to 190 mg/dL HDL Cholesterol 36(L) >40 mg/dL [facility] Comment:Desirable HDL: great er than 40 mg/dL Note: This HDL assay may give artificially low results in patients with liver disease. 11/26/2023 8:45 AM EDT 11/26/2023 8:45 AM EDT us Generic External Data Provider LAB BLOOD ORDERAB LES Final Result [facility] [address] [place] [phone] [phone] * (ABNORMAL) Colonoscopy (02/15/2023) Anatomical Region Laterality Modality Endoscopy Narrative 02/15/2023 Diverticulosis of sigmoid colon. Internal hemorrhoids. Done by Dr Kirby Lomax. Repeat Colonoscopy in 5 years. us Jeanna Oleary MD ENDOSCOPY PROCEDURE ORDERAB LES Final Result * Diabetes Eye Exam (02/07/2023) Eye Exam Normal Normal Narrative Мария Prabhakar [place] - 02/07/2023 No diabetic retinopathy us Jeanna Oleary MD HEALTH MAINTENANCE Final Re sult from Last 3 Months or Most Recently Relevant to Health Maintenance Insurance MEDICARE ADVANTAGE HMO Care Teams Custom Stock Maker Relationship Specialty Start Date End Date Jeanna Oleary MD [address] [place] [phone] PCP - General Internal Medicine 12/19/16 Cervantes, Gianni José [address] [place] [address] Pharmacist Internal Medicine 06/03/24
--- OUTSIDE RECORDS SUMMARY | 2024-07-02 16:37 | XMS_ITS | Clinical Summary ---
Author Organization [facility] Address [address] [place] [address] Phone Care Team Providers Care Corporate Officer Name Role Phone Jeanna Oleary MD Primary Care Provider [phone] Allergies Active Allergy Reactions Criticality Noted Date [...] Most Recently Relevant to Health Maintenance Insurance [facility] MEDICARE [facility] MEDICARE Care Teams Corporate Officer Relationship Specialty Start Date End Date Jeanna Oleary MD PCP - General 05/17/20
== END 2024-07-02 14:11 | disposition home or self-care (01) ==
PROVIDERS: PCP Internal Medicine; Visit Provider Internal Medicine
DX: I48.0 Paroxysmal atrial fibrillation (principal); E66.9 Obesity, unspecified; E11.9 Type 2 diabetes mellitus without complications
CPT/HCPCS: 93010; 99204; G2211

== ENCOUNTER → 2024-07-02 13:29 | Outpatient (BNVA) | payer MEDICARE, SELFPAY | PROVIDERS: PCP Internal Medicine; Visit Provider Internal Medicine | DX: I48.0 Paroxysmal atrial fibrillation (principal); E66.9 Obesity, unspecified; Z68.29 Body mass index [BMI] 29.0-29.9, adult; E11.9 Type 2 diabetes mellitus without complications; Z79.01 Long term (current) use of anticoagulants; Z79.899 Other long term (current) drug therapy | CPT/HCPCS: 93005; 99202 ==

== ENCOUNTER 2024-07-10 08:38 | Outpatient (REF) | payer MEDICARE, SELFPAY ==
--- NOTE | ~2024-07-10 | US_ITS ---
EXAMINATION: US ABDOMEN HISTORY: transaminitis TECHNIQUE: Real-time grayscale ultrasound imaging of the abdomen was performed and images were reviewed. COMPARISON: Comparison is made with the prior examination dated 12/22/2019. FINDINGS: Liver: The right lobe of the liver measures 18.8 cm in size. The left lobe of the liver measures 9.1 cm in size. The liver demonstrates coarsened echotexture with a scalloped margin. No focal mass or intrahepatic biliary ductal dilatation is identified. There is normal hepatopedal flow in the portal vein. Gallbladder and biliary tree: The gallbladder is surgically absent. The common bile duct is normal in caliber measuring 10 mm. Kidneys: The right kidney measures 12.1 cm in length and demonstrates a 1.1 cm cyst in the interpolar region. The left kidney measures 11.4 cm in length and demonstrates 9 mm cyst in the interpolar region and an 8 mm cyst at the lower pole. The kidneys are otherwise unremarkable, without evidence of solid masses, hydronephrosis, or calculi. There is trace free fluid adjacent to the lower pole of the left kidney. Pancreas: The pancreatic head, neck, and body are unremarkable. The pancreatic tail is obscured by bowel gas. Spleen: The spleen is normal in size and contour, measuring 12.3 cm in length. Abdominal aorta and inferior vena cava: The visualized portions of the abdominal aorta and inferior vena cava are normal in caliber. There is no free fluid in the abdomen. US/US abdomen complete IMPRESSION: 1. Mild hepatomegaly. Coarsened hepatic echotexture with a scalloped margin which can be seen in the setting of cirrhosis. Clinical correlation is recommended. 2. Bilateral renal cysts as described. Electronically signed by: Nigel Gustafson MD 07/11/2024 11:50 AM EST
--- OUTSIDE RECORDS SUMMARY | 2024-07-10 09:08 | XMS_ITS | Encounter Summary ---
Author Organization [employer] Address [address] [place] [address] [address] [place] [address] Care Team Providers Care Hide Worker Name Role Phone Jeanna Oleary MD Primary Care Provider [phone] Estefanía Cervantes PharmD Unavailable [phone] Reason for Visit * Reason Onset Date Comments chart prep 06/12/2024 Encounter Details Date Type Department Care Team ([facility] st Contact Info) Description 06/12/2024 Telephone [facility] PEDS [address] [place], [place] [phone] Jeanna Oleary MD [address] [place] [address] chart prep Social History Tobacco Use Types [...] Info) Description 08/04/2024 9:30 AM EDT Telemedicine [facility] [address] [place], [place] [phone] Estefanía Cervantes, PharmD [address] [place] [address] documented as of this encounter Visit Diagnoses Not on filedocumented in this encounter Additional Health Concerns Assessment Noted Time PHQ-9 Depression Total Score: 0 11/24/19 23 10:27 AM EDT documented as of this encounter Care Teams Hide Worker Relationship Specialty Start Date End Date Jeanna Oleary MD [address] [place], [place] [phone] PCP - General Internal Medicine 12/19/16 Estefanía Cervantes PharmD [address] [place], [place] [phone] Pharmacist Internal Medicine 06/03/24 documented as of this encounter
--- OUTSIDE RECORDS SUMMARY | 2024-07-10 09:08 | XMS_ITS | Encounter Summary ---
Author Organization [employer] Address [address] [facility] 7t [place] [address] Care Team Providers Care Software Qa System Specialist Name Role Phone Jeanna Oleary MD Primary Care Provider [phone] Estefanía Cervantes PharmD Unavailable [phone] Encounter Details Date Type Department Care Team ([facility] st Contact Info) Description 06/13/2024 Orders Only [facility] CHC MED & PEDS [address] [place], [place] [phone] Jeanna Oleary MD [address] [place] [address] Social History Tobacco Use Types Packs/Day Years [...] Info) Description 08/04/2024 9:30 AM EDT Telemedicine [facility] MED & PEDS [address] [place] [address] Estefanía Cervantes, PharmD [address] [place] [address] documented as of this encounter Procedures Procedure [...] 10:55 AM EST) Creatinine, Urine 87.64 mg/dL [facility] Microalbumin Urine 450.0 mg/L [facility] Microalbum Creatinine Ratio Ur 513.4(H) <30 ug/mg cr [facility] Comment:Albumin/Creatinine R atio Reference Ranges: Normal: < 30 ug/mg creatinine Microalbuminuria: 30 - 300 ug/mg creatinineClinical Albuminuria: > 300 ug/mg creatinine 06/13/2024 10:5 5 AM EST 06/13/2024 1:21 PM EST us Jeanna Oleary MD LAB URINE ORDERABLES Final Result Performing Organization Address [facility]/ZIP Co de Phone Number [facility] [address] [place] [phone] * Testosterone, Total, males (Adult), [place] (06/13/2024 10:47 AM EST) Testosterone, Total 549 250 - 1100 ng/dL [facility] Comment:Men with clinically significant hypogonadalsymptoms and testosterone values repeatedly inthe range of the 200-300 ng/dL or less, maybenefit from testosterone treatment afteradequate risk and benefits counseling.For additional information, please refer tohttp://education.[employer]le [employer]/faq/EksaaLmfazghkmnttFGOZAACVU286(This link is being provided for informational/educational purposes only.)This test was developed and its analytical performancecharacteristics have been determined by [employer] [place], [place]. It hasnot been cleared or approved by the U.S. Food and DrugAdministration. This assay has been validated pursuantto the CLIA regulations and is used for clinicalpurposes.THIS TEST WAS PERFORMED AT:[employer] [place] [address]VVKENSPLEONORA MCNEIL MD,PHD 06/13/2024 10:4 7 AM EST 06/13/2024 1:31 PM EST us Generic External Data Provider LAB BLOOD ORDERAB LES Final Result Performing Organization Address City/[facility]/ZIP Co de Phone Number [facility] [address] [place] [phone] * Vitamin B12 (06/13/2024 10:47 AM EST) Vitamin B12 704 200 - 900 pg/mL [facility] Comment:NORMAL 200-900 PG/ML INDETERMINATE 160-199 PG/ML DEFICIENT < 160 PG/ML 06/13/2024 10:4 7 AM EST 06/13/2024 1:31 PM EST us Jeanna Oleary MD LAB BLOOD ORDERABLES Final Result [facility] [address] [place] [phone] [phone] * (ABNORMAL) Comprehensive Metabolic Panel (06/13/2024 10:47 AM EST) Sodium 137 135 - 145 mmol/L [facility] Potassium 4.9 3.3 - 5.1 mmol/L [facility] Chloride 104 96 - 108 mmol/L [facility] Carbon Dioxide 22 22 - 29 mmol/L [facility] Anion Gap 16 12 - 20 [facility] Urea Nitrogen (BUN) 19(H) 9 - 16 mg/dL [facility] Creatinine, Serum 0.84 0.5 - 1.4 mg/dL [facility] Estimated Glomerular Filt Rate >60 [facility] Comment:Chronic Kidney Disea se: Estimated GFR < 60 mL/min/1.96m3Hvgdfc Kidney Disease: Estimated GFR < 15 mL/min/1.73m2 Glucose 194(H) 60 - 115 mg/dL [facility] Calcium 9.3 8.4 - 10.2 mg/dL [facility] Bilirubin, Total 0.5 0.0 - 1.0 mg/dL [facility] Aspartate Amino Transferase 46(H) 5 - 37 U/L [facility] Alanine Aminotransferase 47(H) 0 - 40 U/L [facility] Total Protein 7.3 6.5 - 8.0 g/dL [facility] Albumin Level 4.0 3.5 - 5.0 g/dL [facility] Alkaline Phosphatase 62 39 - 117 U/L [facility] 06/13/2024 10:4 7 AM EST 06/13/2024 1:31 PM EST Jeanna Oleary MD LAB BLOOD ORDERABLES Final Result [facility] [address] [place] [phone] [phone] documented in this encounter Visit Diagnoses Not on filedocumented in this encounter Additional Health Concerns Assessment Noted Time PHQ-9 Depression Total Score: 0 11/24/19 10:27 AM EDT documented as of this encounter Care Teams Software Qa System Specialist Relationship Specialty Start Date End Date Jeanna Oleary MD [address] [place] [address] PCP - General Internal Medicine 12/19/16 Estefanía Cervantes PharmD [address] [place] [address] Pharmacist Internal Medicine 06/03/24 documented as of this encounter
--- OUTSIDE RECORDS SUMMARY | 2024-07-10 09:08 | XMS_ITS | Encounter Summary ---
Author Organization [employer] Address [address] [facility] 7 [place] [address] Care Team Providers Care Header Operator Name Role Phone Jeanna Oleary MD Primary Care Provider [phone] Estefanía Cervantes PharmD Unavailable [phone] Encounter Details Date Type Department Care Team (Late st Contact Info) Description 01/29/2024 Orders Only [facility] CHC MED & PEDS [address] [place], [place] [phone] Jeanna Oleary MD [address] [place] [address] Class 3 severe obesity due to excess calories without serious comorbidity with body mass index (BMI) of 40.0 to 44.9 in adult ([facility]) (Primary Dx); Type 2 diabetes mellitus with hyperglycemia, with long-term current use of insulin ([facility]) Social History Tobacco Use Types Packs/Day Years [...] [facility] MED & PED[facility] [address] [place], [place] [phone] Estefanía Cervantes PharmD [address] [place] [address] documented as of this encounter Visit Diagnoses Diagnosis Class 3 severe obesity due to excess calories without serious comorbidity with body mass index (BMI) of 40.0 to 44.9 in adult ([facility])- Primary Type 2 diabetes mellitus with hyperglycemia, with long-term current use of insulin ([facility]) documented in this encounter Additional Health Concerns Assessment Noted Time PHQ-9 Depression Total Score: 0 11/24/19 23 10:27 AM EDT documented as of this encounter Care Teams Header Operator Relationship Specialty Start Date End Date Jeanna Oleary MD [address] [place], [place] [phone] PCP - General Internal Medicine 12/19/16 Estefanía Cervantes PharmD [address] [place], [place] [phone] Pharmacist Internal Medicine 06/03/24 documented as of this encounter
--- OUTSIDE RECORDS SUMMARY | 2024-07-10 09:08 | XMS_ITS | Encounter Summary ---
Author Organization [employer] Address [address] [facility] 7 [place] [address] Care Team Providers Care Footwear Sales Coordinator Name Role Phone Jeanna Oleary MD Primary Care Provider [phone] Estefanía Cervantes PharmD Unavailable [phone] Encounter Details Date Type Department Care Team (Late st Contact Info) Description 09/05/2023 Orders Only [facility] CHC MED & PEDS [address] [place], [place] [phone] Jeanna Oleary MD [address] [place] [address] Hyperkalemia (Primary Dx); Type 2 diabetes mellitus with hyperglycemia, with long-term current use of insulin ([facility]); Erectile disorder Social History Tobacco [...] EDT Telemedicine [facility] MED & PEDS [address] [place] [address] Estefanía Cervantes PharmD [address] [place] [address] Scheduled Orders Name Type Priority Associated Diagnoses [...] Testosterone, Total 98(A) 250 - 1100 ng/dL [facility] Comment:Men with clinically significant hypogonadalsymptoms and testosterone values repeatedly inthe range of the 200-300 ng/dL or less, maybenefit from testosterone treatment afteradequate risk and benefits counseling.For additional information, please refer tohttp://education.[employer]faq/YhavqVscpkbwoxeytQSDYTKBWW231(This link is being provided for informational/educational purposes only.)This test was developed and its analytical performancecharacteristics have been determined by [employer] [place], [place]. It hasnot been cleared or approved by the U.S. Food and DrugAdministration. This assay has been validated pursuantto the CLIA regulations and is used for clinicalpurposes. Testosterone, Free 14.7(A) 35.0 - 155.0 pg/mL [facility] Comment:This test was develo ped and its analytical performancecharacteristics have been determined by [employer] [place]. It hasnot been cleared or approved by the U.S. Food and DrugAdministration. This assay has been validated pursuantto the CLIA regulations and is used for clinicalpurposes.THIS TEST WAS PERFORMED AT:[employer] [place] [address]QAHLMWKLEONORA MCNEIL MD,PHD Blood Venous blood specimen / Unknown 10/03/2023 12:52 PM EDT 10/03/2023 4:32 PM EDT Jeanna Oleary MD LAB BLOOD ORDERABLES Final Result [facility] [address] [place] [address] [phone] documented in this encounter Visit Diagnoses Diagnosis Hyperkalemia- Primary Hyperpotassemia Type 2 diabetes mellitus with hyperglycemia, with long-term current use of insulin ([facility]) Erectile disorder documented in this encounter Additional Health Concerns Assessment Noted Time PHQ-9 Depression Total Score: 0 11/24/19 23 10:27 AM EDT documented as of this encounter Care Teams Footwear Sales Coordinator Relationship Specialty Start Date End Date Jeanna Oleary MD [address] [place] [address] PCP - General Internal Medicine 12/19/16 Estefanía Cervantes PharmD [address] [place] [address] Pharmacist Internal Medicine 06/03/24 documented as of this encounter
--- OUTSIDE RECORDS SUMMARY | 2024-07-10 09:08 | XMS_ITS | Encounter Summary ---
Author Organization [employer] Address [address] [facility] 7t [place] [address] Care Team Providers Care Causticiser Name Role Phone Jeanna Oleary MD Primary Care Provider [phone] Estefanía Cervantes PharmD Unavailable [phone] Reason for Visit * Reason Comments Med Refill Encounter Details Date Type Department Care Team ([facility] st Contact Info) Description 09/14/2023 Refill [facility] CHC MED & PEDS [address] [place], [place] [phone] Jeanna Oleary MD [address] [place] [address] Type 2 diabetes mellitus without complications (CMS/HCC) [...] Description 08/04/2024 9:30 AM EDT Telemedicine [facility] MED & PEDS [address] [place] [address] Estefanía Cervantes PharmD [address] [place] [address] documented as of this encounter Visit Diagnoses Diagnosis Type 2 diabetes mellitus without complications (CMS/HCC) documented in this encounter Additional Health Concerns Assessment Noted Time PHQ-9 Depression Total Score: 0 11/24/19 23 10:27 AM EDT documented as of this encounter Care Teams Causticiser Relationship Specialty Start Date End Date Jeanna Oleary MD [address] [place] [address] PCP - General Internal Medicine 12/19/16 Estefanía Cervantes PharmD [address] [place] [address] Pharmacist Internal Medicine 06/03/24 documented as of this encounter
--- OUTSIDE RECORDS SUMMARY | 2024-07-10 09:08 | XMS_ITS | Encounter Summary ---
Author Organization [employer] Address [address] [facility] 7t [place] [address] Care Team Providers Care Garbage Collection Supervisor Name Role Phone Jeanna Oleary MD Primary Care Provider [phone] Estefanía Cervantes PharmD Unavailable [phone] Encounter Details Date Type Department Care Team (Late st Contact Info) Description 06/16/2024 Orders Only [facility] CHC MED & PEDS [address] [place], [place] [phone] Jeanna Oleary MD [address] [place] [address] Social History Tobacco Use Types Packs/Day Years [...] 9:30 AM EDT Telemedicine [facility] MED & PEDS [address] [place] [address] Estefanía Cervantes, PharmD [address] [place] [address] documented as of this encounter Visit Diagnoses Not on filedocumented in this encounter Additional Health Concerns Assessment Noted Time PHQ-9 Depression Total Score: 3 06/16/19 25 10:59 AM EST documented as of this encounter Care Teams Garbage Collection Supervisor Relationship Specialty Start Date End Date Jeanna Oleary MD [address] [place] [address] PCP - General Internal Medicine 12/19/16 Estefanía Cervantes, PharmD [address] [place] [address] Pharmacist Internal Medicine 06/03/24 documented as of this encounter
--- OUTSIDE RECORDS SUMMARY | 2024-07-10 09:08 | XMS_ITS | Encounter Summary ---
Author Organization [employer] Address [address] [facility] 7t [place] [address] Care Team Providers Care Associate Professor Of Automation Name Role Phone Jeanna Oleary MD Primary Care Provider [phone] Estefanía Cervantes PharmD Unavailable [phone] Encounter Details Date Type Department Care Team (Late st Contact Info) Description 09/20/2023 Orders Only [facility] CHC MED & PEDS [address] [place], [place] [phone] Jeanna Oleary MD [address] [place] [address] Type 2 diabetes mellitus with hyperglycemia, with long-term current use of insulin ([facility]) (Primary Dx) Social History Tobacco [...] Description 08/04/2024 9:30 AM EDT Telemedicine [facility] MED & PEDS [address] [place] [address] Estefanía Cervantes PharmD [address] [place] [address] documented as of this encounter Visit Diagnoses Diagnosis Type 2 diabetes mellitus with hyperglycemia, with long-term current use of insulin ([facility])- Primary documented in this encounter Additional Health Concerns Assessment Noted Time PHQ-9 Depression Total Score: 0 11/24/19 23 10:27 AM EDT documented as of this encounter Care Teams Associate Professor Of Automation Relationship Specialty Start Date End Date Jeanna Oleary MD [address] [place] [address] PCP - General Internal Medicine 12/19/16 Estefanía Cervantes, DayneD [address] [place], [place] [phone] Pharmacist Internal Medicine 06/03/24 documented as of this encounter
--- OUTSIDE RECORDS SUMMARY | 2024-07-10 09:08 | XMS_ITS ---
Author Organization [facility] Address [address] [place] [address] Care Team Providers Care Algologist Name Role Phone Richard Oleary MD Primary Care Provider Jas Sommer [phone] REASON FOR VISIT COMPUTER TRAINER PPWK Entered Encounters Encounter Location Date Provider Diagnosis [facility] [address] [place] [address] 11/15/2023 Jas Love Plan Of Treatment Next Appt Details Provider Name:Jas Love , 02/20/2025 09:00:00 AM, [address] [place], [address], Progress Notes * Jaime HAMLINDOB:[birth year] (68 yo M)Acc No.[id number]:11/15/2023 Patient:?Jaime Hamlin :1955???Age:68 Y???Sex:Male Address:[address] [facility] [place], [address] * true * Date:? Generated for Printi ng/Tressag/eTransmitting on:?07/10/2024 09:08 AM EST
--- OUTSIDE RECORDS SUMMARY | 2024-07-10 09:08 | XMS_ITS | Encounter Summary ---
Author Organization [employer] Address [address] [place] [address] 7 [place] [address] Care Team Providers Care Lap Winding Machine Operator Name Role Phone Jeanna Oleary MD Primary Care Provider [phone] Estefanía Cervantes PharmD Unavailable [phone] Reason for Referral * Consultation (Routine) - Closed Specialty Diagnoses / Procedures Referred By Contac t Referred To Contact Endocrinology Diagnoses Hypogonadism male Jeanna Oleary MD [address] [place] [address] Phone: tel: fax: [facility] [address] [place] [address] Phone: tel: fax: Referral ID Status Reason Start Date Expiration Date V isits Requested Visits Authorized [id number] Closed Specialty Services Required 10/11/2023 10/10/2024 1 1 Encounter Details Date Type Department Care Team (Late st Contact Info) Description 10/11/2023 Orders Only [facility] CHC MED & PEDS [address] [place] [address] Jeanna Oleary MD [address] [place] [address] Hypogonadism male (Primary Dx) Social History Tobacco [...] Info) Description 08/04/2024 9:30 AM EDT Telemedicine [facility] MED & PEDS [address] [place] [address] Estefanía Cervantes, PharmD [address] [place] [address] Scheduled Referrals Name Type Priority Associated Diagnoses [...] Testosterone, Total 94(A) 250 - 1100 ng/dL [facility] Comment:Men with clinically significant hypogonadalsymptoms and testosterone values repeatedly inthe range of the 200-300 ng/dL or less, maybenefit from testosterone treatment afteradequate risk and benefits counseling.For additional information, please refer tohttp://education.[employer]/faq/BnortCbdaomowzcxhTYBLPCCVB479(This link is being provided for informational/educational purposes only.)This test was developed and its analytical performancecharacteristics have been determined by [email or web address] [place], [place]. It hasnot been cleared or approved by the U.S. Food and DrugAdministration. This assay has been validated pursuantto the CLIA regulations and is used for clinicalpurposes.THIS TEST WAS PERFORMED AT:[employer]/[facility] [place] [address]MLZNSKDLEONORA MCNEIL MD,PHD Blood Venous blood specimen / Unknown 10/16/2023 2:12 PM EDT 10/16/2023 5:54 PM EDT Jeanna Oleary MD LAB BLOOD ORDERABLES Final Result [facility] [address] [place] [address] [phone] documented in this encounter Visit Diagnoses Diagnosis Hypogonadism male- Primary Other testicular hypofunction documented in this encounter Additional Health Concerns Assessment Noted Time PHQ-9 Depression Total Score: 0 11/24/19 23 10:27 AM EDT documented as of this encounter Care Teams Lap Winding Machine Operator Relationship Specialty Start Date End Date Jeanna Oleary MD [address] [place] [address] PCP - General Internal Medicine 12/19/16 Estefanía Cervantes PharmD [address] [place] [address] Pharmacist Internal Medicine 06/03/24 documented as of this encounter
--- OUTSIDE RECORDS SUMMARY | 2024-07-10 09:08 | XMS_ITS | Encounter Summary ---
Author Organization [employer] Address [address] [facility] 7t [place] [address] Care Team Providers Care Special Education Superintendent Name Role Phone Jeanna Oleary MD Primary Care Provider [phone] Estefanía Cervantes PharmD Unavailable [phone] Reason for Visit * Reason Comments Med Refill Encounter Details Date Type Department Care Team (Late st Contact Info) Description 07/01/2024 Refill [facility] MEDICINE [address] [place] [address] Jeanna Oleary MD [address] [place] [address] Vitamin D deficiency; Type 2 diabetes mellitus [...] Description 08/04/2024 9:30 AM EDT Telemedicine [facility] MED & PEDS [address] [place] [address] Estefanía Cervantes PharmD [address] [place] [address] documented as of this encounter Visit Diagnoses Diagnosis Vitamin D deficiency Type 2 diabetes mellitus with diabetic neuropathy, unspecified (CMS/HCC) documented in this encounter Additional Health Concerns Assessment Noted Time PHQ-9 Depression Total Score: 3 06/16/19 10:59 AM EST documented as of this encounter Care Teams Special Education Superintendent Relationship Specialty Start Date End Date Jeanna Oleary MD [address] [place], [place] [phone] PCP - General Internal Medicine 12/19/16 Estefanía Cervantes PharmD [address] [place] [address] Pharmacist Internal Medicine 06/03/24 documented as of this encounter
--- OUTSIDE RECORDS SUMMARY | 2024-07-10 09:09 | XMS_ITS | Encounter Summary ---
Author Organization [employer] Address [address] [facility] 7t [place] [address] Care Team Providers Care Hot Die Picker Name Role Phone Jeanna Oleary MD Primary Care Provider [phone] Estefanía Cervantes PharmD Unavailable [phone] Encounter Details Date Type Department Care Team (Late st Contact Info) Description 01/01/2024 Orders Only [facility] CHC MED & PEDS [address] [place], [place] [phone] Jeanna Oleary MD [address] [place] [address] Type 2 diabetes mellitus with hyperglycemia, with long-term current use of insulin ([facility]) (Primary Dx) Social History Tobacco [...] 08/04/2024 9:30 AM EDT Telemedicine [facility] MED & PEDS [address] [place] [address] Estefanía Cervantes PharmD [address] [place] [address] documented as of this encounter Visit Diagnoses Diagnosis Type 2 diabetes mellitus with hyperglycemia, with long-term current use of insulin ([facility])- Primary documented in this encounter Additional Health Concerns Assessment Noted Time PHQ-9 Depression Total Score: 0 11/24/19 23 10:27 AM EDT documented as of this encounter Care Teams Hot Die Picker Relationship Specialty Start Date End Date Jeanna Oleary MD [address] [place] [address] PCP - General Internal Medicine 12/19/16 Estefanía Cervantes, DayneD [address] [place], [place] [phone] Pharmacist Internal Medicine 06/03/24 documented as of this encounter
--- OUTSIDE RECORDS SUMMARY | 2024-07-10 09:09 | XMS_ITS | Encounter Summary ---
Author Organization [employer] Address [address] [facility] 7 [place] [address] Care Team Providers Care Aircraft Shipping Checker Name Role Phone Jeanna Oleary MD Primary Care Provider [phone] Estefanía Cervantes PharmD Unavailable [phone] Reason for Visit * Consultation (Routine) - Pending Review Specialty Diagnoses / Procedures Referred By Contac t Referred To Contact Pharmacy Diagnoses Type 2 diabetes mellitus with hyperglycemia, with long-term current use of insulin (CMS/HCC) Jeanna Oleary MD [address] [place] [address] Phone: tel: fax: Referral ID Status Reason Start Date Expiration Date Visits Requested Visits Authorized [id number] Pending Review Consult and Treat 05/28/2024 05/28/2025 6 6 Encounter Details Date Type Department Care Team ([facility] st Contact Info) Description 06/03/2024 9:30 AM EST Telemedicine [facility] CHC MED & PEDS [address] [place] [address] Estefanía Cervantes, PharmD [address] [place] [address] Type 2 diabetes mellitus with hyperglycemia, with [...] is allergic to hydroxyzine. Read/Write: Yes, in [place] Recent Hospitalizations: No Social History as reported [...] denies Type 2 Diabetes Previous patient of [facility] DM educator, last visit 04/28/24 (televisit) Confirms using Mounjaro, sugars have been great and reports patient has lost 72 lbs Reports having glipizide Just in case ; for example going to [place] in July for family birthday celebration, may use glipizide before any cheat food Denies any high readings in the past 2 weeks Pertinent negatives include polyuria, polydipsia, blurred vision CGM: Freestyle Yahir 2 This will be discontinued in January, change to 2 plus Patient wants to use phone rather than reader - [id number] denies experiencing hypoglycemia (<70mg/dL) Hypertension Patient reports [...] invalid; pt is 68 y/o Preferred Pharmacy: [facility] - DEBBIE Sharp - [address] [place] [address] Aron LEWIS [id number] Assessment/Plan: Type 2 Diabetes Pharmacologic Therapy: Glipizide [...] needed. When fillable, will call patient for [employer] anne marie teaching. Patient to get updated [...] Description 08/04/2024 9:30 AM EDT Telemedicine [facility] CH[facility] MED & PEDS [address] [place] [address] Estefanía Cervantes PharmD [address] [place] [address] Scheduled Orders Name Type Priority Associated Diagnoses Orde r Schedule Comprehensive Metabolic Panel Lab Routine Type 2 diabetes mellitus with hyperglycemia, with long-term current use of insulin ([facility]) Expected: 06/03/2024 (Approximate), Expires: 06/03/2025 Albumin, Random [...] hyperglycemia, with long-term current use of insulin (CMS/[facility])- Primary Benign hypertension Essential hypertension, benign documented in this encounter Additional Health Concerns Assessment Noted Time PHQ-9 Depression Total Score: 0 11/24/19 23 10:27 AM EDT documented as of this encounter Care Teams Aircraft Shipping Checker Relationship Specialty Start Date End Date Jeanna Oleary MD [address] [place] [address] PCP - General Internal Medicine 12/19/16 Estefanía Cervantes, DayneD [address] [place], [place] [phone] Pharmacist Internal Medicine 06/03/24 documented as of this encounter
--- OUTSIDE RECORDS SUMMARY | 2024-07-10 09:09 | XMS_ITS | Encounter Summary ---
Author Organization [employer] Address [address] [place] [address] 7 [place] [address] Care Team Providers Care Head Of Digital Name Role Phone Jeanna Oleary MD Primary Care Provider [phone] Estefanía Cervantes PharmD Unavailable [phone] Reason for Referral * Consultation (Routine) - Closed Specialty Diagnoses / Procedures Referred By Contac t Referred To Contact Cardiology Diagnoses Atrial fibrillation with rapid ventricular response (CMS/HCC) Jeanna Oleary MD [address] [place] [address] Phone: tel: fax: Erasmo Daily MD [address] [place] [address] Phone: tel: fax: Referral ID Status Reason Start Date Expiration Date V isits Requested Visits Authorized [id number] Closed Specialty Services Required 03/20/2024 03/20/2025 1 1 Encounter Details Date Type Department Care Team (Late st Contact Info) Description 03/20/2024 Orders Only [facility] CHC MED & PEDS [address] [place], [place] [phone] Jeanna Oleary MD [address] [place], [place] Atrial fibrillation with rapid ventricular response [...] Description 08/04/2024 9:30 AM EDT Telemedicine [facility] MED & PEDS [address] [place] [address] Estefanía Cervantes, PharmD [address] [place] [address] Scheduled Referrals Name Type Priority Associated Diagnoses [...] documented as of this encounter Care Teams Head Of Digital Relationship Specialty Start Date End Date Jeanna Oleary MD [address] [place] [address] PCP - General Internal Medicine 12/19/16 Estefanía Cervantes PharmD [address] [place] [address] Pharmacist Internal Medicine 06/03/24 documented as of this encounter
--- OUTSIDE RECORDS SUMMARY | 2024-07-10 09:09 | XMS_ITS | Encounter Summary ---
Author Organization [employer] Address [address] [place] [address] 7 [place] [address] Care Team Providers Care New Business Clerk Name Role Phone Jeanna Oleary MD Primary Care Provider [phone] Estefanía Cervantes PharmD Unavailable [phone] Reason for Visit * Reason Comments Med Refill Encounter Details Date Type Department Care Team (Late Contact Info) Description 07/04/2022 Refill [facility] MEDICINE [address] [place], [place] [phone] Jeanna Oleary MD [address] [place], [place] [phone] Mixed simple and mucopurulent chronic bronchitis (CMS/HCC) [...] Info) Description 08/04/2024 9:30 AM EDT Telemedicine [facility] CHC MED & PEDS [address] [place], [place] [phone] Estefanía Cervantes, PharmD [address] [place], [place] [phone] documented as of this encounter Visit Diagnoses Diagnosis Mixed simple and mucopurulent chronic bronchitis (CMS/HCC)- Primary Other chronic bronchitis Type 2 diabetes mellitus with hyperglycemia, with long-term current use of insulin (CMS/HCC) documented in this encounter Care Teams New Business Clerk Relationship Specialty Start Date End Date Jeanna Oleary MD [address] [place] [address] PCP - General Internal Medicine 12/19/16 Estefanía Cervantes PharmD [address] [place] [address] Pharmacist Internal Medicine 06/03/24 documented as of this encounter
--- OUTSIDE RECORDS SUMMARY | 2024-07-10 09:09 | XMS_ITS | Encounter Summary ---
Author Organization [employer] Address [address] [facility] 7t [place] [address] Care Team Providers Care Auto Parts Counter Person Name Role Phone Jeanna Oleary MD Primary Care Provider [phone] Estefanía Cervantes PharmD Unavailable [phone] Reason for Visit * Reason Onset Date Comments Referral 11/13/2023 Encounter Details Date Type Department Care Team (Late st Contact Info) Description 11/13/2023 Telephone [facility] MEDICINE [address] [place] [address] Jeanna Oleary MD [address] [place] [address] Referral Social History Tobacco Use Types Packs/Day [...] 11/14/2023 10:06 AM EDT Referral faxed to [facility] as requested. * Telephone Encounter - Gene Kumari - 11/13/2023 2:59 PM EDT Tc from pt requesting for Podiatry [facility] [place] due to location being easier. documented in this encounter Plan of Treatment Upcoming Encounters Date Type Department Care Team (Late st Contact Info) Description 08/04/2024 9:30 AM EDT Telemedicine [facility] CHC MED & PEDS [address] [place] [address] Estefanía Cervantes, PharmD 230 [place] [address] documented as of this encounter Visit Diagnoses Not on filedocumented in this encounter Additional Health Concerns Assessment Noted Time PHQ-9 Depression Total Score: 0 11/24/19 23 10:27 AM EDT documented as of this encounter Care Teams Auto Parts Counter Person Relationship Specialty Start Date End Date Jeanna Oleary MD [address] [place] [address] PCP - General Internal Medicine 12/19/16 Estefanía Cervantes, Gianni [address] [place] [address] Pharmacist Internal Medicine 06/03/24 documented as of this encounter
--- OUTSIDE RECORDS SUMMARY | 2024-07-10 09:09 | XMS_ITS | Clinical Summary ---
Author Organization [facility] Address [address] [place] [address] Phone Care Team Providers Care Outreach Representative Name Role Phone Jeanna Oleary MD Primary Care Provider [phone] Allergies Active Allergy Reactions Criticality Noted Date [...] Most Recently Relevant to Health Maintenance Insurance [facility] MEDICARE [facility] MED[facility] Care Teams Outreach Representative Relationship Specialty Start Date End Date Jeanna Oleary MD PCP - General 05/17/20
--- OUTSIDE RECORDS SUMMARY | 2024-07-10 09:09 | XMS_ITS | Patient Health Record ---
Author Organization [facility] Address [address] [place] [address] Care Team Providers Care Warning Analyst Name Role Phone Richard Oleary MD Primary Care Provider Jas Sommer Unavailable [phone] Allergies No Known Allergies Results Component Value [...] Problem Acquired hammer toe of right foot (4168263466939 105) Other hammer toe(s) (acquired), right foot (M20.41) Active confirmed Problem Acquired hammer toe of left foot (3265085208976 103) Other hammer toe(s) (acquired), left foot (M20.42) Active confirmed Problem Type 2 diabetes mellitus with peripheral angiopathy (900593158) Type 2 diabetes mellitus with diabetic peripheral angiopathy without gangrene (E11.51) Active confirmed Q7(A), Q8(2B), Q9(1B,2C) Vital Signs Blood pressure diastolic 80 mm Hg 02/22/2024 Height 5 ft 10 in in 02/22/2024 Blood pressure systolic 128 mm Hg 02/22/2024 Weight 243 lbs 02/22/2024 BMI 34.86 kg/m2 02/22/2024 Encounters Encounter [facility] Date [facility] [address] [facility]/22/[facility]24 Jas Love Pain in left foot M79.672 ; Pain in left ankle and joints of left foot M25.572 ; Bursitis of intermetatarsal bursa of left foot M77.52 ; Metatarsalgia, left foot M77.42 ; Type 2 diabetes mellitus with diabetic peripheral angiopathy without gangrene E11.51 ; Other hammer toe(s) (acquired), right foot M20.41 and Other hammer toe(s) (acquired), left foot M20.42 [facility] [address] 11/15/2023 Jas Love Assessments Encounter Date Diagnosis [...] Name:Jas Sutton Ivan , 02/20/2025 09:00:00 AM, [address] [place] [address], [id number], Insurance Providers Payer Name Payer Address Payer Phone Subscriber Number Group Number Insured Name Patient Relationship to Insured Coverage Start Date Coverage End Date Medicare National Govt Sv[employer] [address] [place] [address] [phone] [id number] Jaime Hamlin Self - patient is the insured 7 [employer] [address] [place] [address] [id number] Jaime Hamlin Self - patient is the insured Medical (General) History Medical History History ICD Code covid-19 Diabetic Heart disease High blood pressure Kidney disease Reflux ( GERD) Stomach ulcer Surgical History Surgery Date(Month/Year) Gall bladder removal
--- OUTSIDE RECORDS SUMMARY | 2024-07-10 09:09 | XMS_ITS | Encounter Summary ---
Author Organization [employer] Address [address] [facility] 7 [place] [address] Care Team Providers Care Last Sorter Name Role Phone Jeanna Oleary MD Primary Care Provider [phone] Estefanía Cervantes PharmD Unavailable [phone] Encounter Details Date Type Department Care Team (Late st Contact Info) Description 12/04/2023 Orders Only [facility] CHC MED & PEDS [address] [place], [place] [phone] Jeanna Oleary MD [address] [place] [address] Class 3 severe obesity due to excess calories without serious comorbidity with body mass index (BMI) of 40.0 to 44.9 in adult (CMS/[facility]) (Primary Dx); Type 2 diabetes mellitus with hyperglycemia, with long-term current use of insulin ([facility]) Social History Tobacco Use Types [...] 08/04/2024 9:30 AM EDT Telemedicine [facility] MED & PEDS [address] [place], [place] [phone] Estefanía Cervantes PharmD [address] [place] [address] documented as of this encounter Visit Diagnoses Diagnosis Class 3 severe obesity due to excess calories without serious comorbidity with body mass index (BMI) of 40.0 to 44.9 in adult ([facility])- Primary Type 2 diabetes mellitus with hyperglycemia, with long-term current use of insulin ([facility]) documented in this encounter Additional Health Concerns Assessment Noted Time PHQ-9 Depression Total Score: 0 11/24/19 23 10:27 AM EDT documented as of this encounter Care Teams Last Sorter Relationship Specialty Start Date End Date Jeanna Oleary MD [address] [place], [place] [phone] PCP - General Internal Medicine 12/19/16 Estefanía Cervantes PharmD [address] [place], [place] [phone] Pharmacist Internal Medicine 06/03/24 documented as of this encounter
--- OUTSIDE RECORDS SUMMARY | 2024-07-10 09:09 | XMS_ITS | Encounter Summary ---
Author Organization [employer] Address [address] [place] [address] 7 [place] [address] Care Team Providers Care Dairy Laboratory Technician Name Role Phone Jeanna Oleary MD Primary Care Provider [phone] Estefanía Cervantes PharmD Unavailable [phone] Reason for Referral * Imaging (Routine) - Authorized Specialty Diagnoses / Procedures Referred By Contac t Referred To Contact Radiology Diagnoses Transaminitis Procedures US Abdomen Complete Jeanna Oleary MD [address] [place] [address] Phone: tel: fax: [address] Phone: tel: fax: Referral ID Status Reason Start Date Expiration Date V isits Requested Visits Authorized [id number] Authorized 06/16/2024 06/16/2025 1 1 Reason for Visit * Reason Comments Diabetes Hypertension Encounter Details Date Type Department Care Team (Late st Contact Info) Description 06/16/2024 10:00 AM EST Office Visit [facility] CHC MED & PEDS [address] [place] [address] Jeanna Oleary MD [address] [place] [address] Benign hypertension (Primary Dx); Type 2 diabetes mellitus with hyperglycemia, with long-term current use of insulin ([facility]); Transaminitis Social History Tobacco Use [...] TABLET DAILY 90 tablet 1 Continuous Glucose Screen Door Maker (FreeStyle Yahir 2 Callahan) device Scan sensor every 8 hours 1 [...] A WEEK 2 mL 3 nystatin (Mycostatin) 141873 UNIT/GM powder APPLY TO THE AFFECTED AREA(S) TWICE DAILY 60 g 2 omeprazole (PriLOSEC) [address] capsule TAKE ONE CAPSULE BY MOUTH TWICE DAILY BEFORE MEALS 180 capsule 3 OneTouch Ultra Test test strip TEST BLOOD SUGAR SIX TIMES DAILY 200 strip 5 Ostomy Supplies (Skin Prep Wipes) [facility] To wipe the skin prior to applying [...] hyperglycemia, with long-term current use of insulin ([facility]) Comments: Stable. A1c at goal: 6.6% No reported episode of hypoglycemia No change in management. Orders: - POCT Glucose - POCT HGB A1C Transaminitis - US Abdomen Complete; Future - Hepatitis A,B,C Profile; Future documented in this encounter Plan of Treatment Upcoming Encounters Date Type Department Care Team (Late st Contact Info) Description 08/04/2024 9:30 AM EDT Telemedicine [facility] CHC MED & PEDS [address] [place], [place] [phone] Estefanía Cervantes, PharmD [address] [place], [place] [phone] Scheduled Orders Name Type Priority Associated Diagnoses [...] hyperglycemia, with long-term current use of insulin ([facility]) POCT GLUCOSE Routine 06/16/2024 10:38 AM EST Type 2 diabetes mellitus with hyperglycemia, with long-term current use of insulin ([facility]) documented in this encounter Results * (ABNORMAL) POCT HGB A1C (06/16/2024 10:39 AM EST) Hemoglobin A1C 6.6(A) 4.0 - 6.0 % QC Media Lot # [id number] Lot# Expiration Date [id number] Blood 06/16/2024 10:3 9 AM EST Jeanna Oleary MD POINT OF CARE TEST ENTER/ED IT ORDERABLES Final Result * POCT Glucose (06/16/2024 10:38 AM EST) Glucose Blood, POC [id number] 60 - 200 mg/dL QC Media Lot # [id number] Lot# Expiration Date [id number] Comment:random Blood Capillary blood specimen / Unknown 06/16/2024 10:38 AM EST Jeanna Oleary MD POINT OF CARE TEST ENTER/ED IT ORDERABLES Final Result documented in this encounter Visit Diagnoses Diagnosis Benign hypertension- Primary Essential hypertension, benign Type 2 diabetes mellitus with hyperglycemia, with long-term current use of insulin ([facility]) Transaminitis Nonspecific elevation of levels of transaminase or lactic acid dehydrogenase (LDH) documented in this encounter Additional Health Concerns Assessment Noted Time PHQ-9 Depression Total Score: 3 06/16/19 25 10:59 AM EST documented as of this encounter Care Teams Dairy Laboratory Technician Relationship Specialty Start Date End Date Jeanna Oleary MD [address] [place] [address] PCP - General Internal Medicine 12/19/16 Estefanía Cervantes PharmD [address] [place] [address] Pharmacist Internal Medicine 06/03/24 documented as of this encounter
--- OUTSIDE RECORDS SUMMARY | 2024-07-10 09:09 | XMS_ITS | Encounter Summary ---
Author Organization [employer] Address [address] [facility] 7t [place] [address] Care Team Providers Care Cork Wirer Name Role Phone Jeanna Oleary MD Primary Care Provider [phone] Estefanía Cervantes PharmD Unavailable [phone] Encounter Details Date Type Department Care Team (Late st Contact Info) Description 11/07/2023 Orders Only [facility] CHC MED & PEDS [address] [place], [place] [phone] Jeanna Oleary MD [address] [place] [address] Type 2 diabetes mellitus with hyperglycemia, with long-term current use of insulin ([facility]) (Primary Dx) Social History Tobacco Use Types [...] Description 08/04/2024 9:30 AM EDT Telemedicine [facility] MED & PEDS [address] [place] [address] Estefanía Cervantes PharmD [address] [place] [address] documented as of this encounter Visit Diagnoses Diagnosis Type 2 diabetes mellitus with hyperglycemia, with long-term current use of insulin ([facility])- Primary documented in this encounter Additional Health Concerns Assessment Noted Time PHQ-9 Depression Total Score: 0 11/24/19 23 10:27 AM EDT documented as of this encounter Care Teams Cork Wirer Relationship Specialty Start Date End Date Jeanna Oleary MD [address] [place] [address] PCP - General Internal Medicine 12/19/16 Estefanía Cervantes, DayneD [address] [place], [place] [phone] Pharmacist Internal Medicine 06/03/24 documented as of this encounter
--- OUTSIDE RECORDS SUMMARY | 2024-07-10 09:09 | XMS_ITS | Clinical Summary ---
Author Organization [employer] Address [address] [place] [address] 7[address] [place] [address] Care Team Providers Care Building Services Supervisor Name Role Phone Jeanna Oleary MD Primary Care Provider [phone] Estefanía Cervantes PharmD Unavailable [phone] Allergies Active Allergy Reactions Criticality Noted Date [...] 90 tablet 5 024 Active nystatin (Mycostatin) 003500 UNIT/GM powder APPLY TO THE AFFECTED AREA(S) TWICE DAILY 60 g 2 024 Active Fluticasone-Salm eterol (Advair Diskus) 250-50 MCG/ACT aerosol powder USE ONE INHALATION TWICE DAILY. RINSE MOUTH AFTER USE 60 each 5 024 Active Continuous Glucose Dairy Farmworker (FreeStyle Yahir 2 [place]) deviceIndication s:Type 2 diabetes mellitus with hyperglycemia, with long-term current use of insulin ([facility]) Scan sensor every 8 hours 1 each Active OneTouch Ultra Test test stripIndications :Type 2 diabetes mellitus without complications ([facility]) TEST BLOOD SUGAR SIX TIMES DAILY 200 strip 5 Active Ostomy Supplies (Skin Prep Wipes) miscIndications: Type 2 diabetes mellitus with hyperglycemia, with long-term current use of insulin ([facility]) To wipe the skin prior to applying the sensor 2 times a month 50 each Active Spiriva HandiHaler 18 MCG inhalation capsuleIndicatio ns:Mixed simple and mucopurulent chronic bronchitis ([facility]) USE 1 CAPSULE FOR INHALATION ONCE A DAY DO NOT SWALLOW CAPSULE 30 capsule 6 Active BD Pen Needle Anny U/F 32G X 4 MM miscIndications: Type 2 diabetes mellitus with diabetic neuropathy, unspecified ([facility]) USE FOUR DAILY 90 each 5 024 2024 Active furosemide (Lasix) 20 MG tablet TAKE ONE TABLET TWICE DAILY 180 tablet 1 Active glipiZIDE (Glucotrol) 5 MG tabletIndication s:Type 2 diabetes mellitus with hyperglycemia, with long-term current use of insulin ([facility]) Take 1 tablet (5 mg) by mouth [...] (BMI) of 40.0 to 44.9 in adult ([facility]),Type 2 diabetes mellitus with hyperglycemia, with long-term current use of insulin ([facility]) INJECT 15 SUBCUTANEOUSLY ONCE A WEEK 2 [...] long-term current use of insulin ([facility]) 1 each Once per day. 2 [...] 2 diabetes mellitus with diabetic neuropathy, unspecified ([facility]) TAKE ONE TABLET TWICE DAILY 180 tablet 2 025 Active metFORMIN (Glucophage) 1000 MG tabletIndication s:Type 2 diabetes mellitus with diabetic neuropathy, unspecified ([facility]) TAKE ONE TABLET TWICE DAILY 180 tablet 2 024 2024 Discontinued cholecalciferol (Vitamin D-3) 25 MCG tabletIndication s:Vitamin D deficiency TAKE ONE TABLET DAILY 90 tablet 1 024 2024 Discontinued Active Problems Problem Noted [...] Type Department Care Team Description 07/01/2024 Refill [facility] [address] [place] [address] Jeanna Oleary MD Vitamin D deficiency; Type 2 diabetes mellitus with diabetic neuropathy, unspecified ([facility]) 06/16/2024 10:00 AM EST Office Visit [facility] [address] [facility] [place] [address] Jeanna Oleary MD Benign hypertension (Primary Dx); Type 2 diabetes mellitus with hyperglycemia, with long-term current use of insulin ([facility]); Transaminitis 06/16/2024 Orders Only [facility] [address] [facility] [place] [address] Jeanna Oleary MD 06/16/2024 Travel 06/13/2024 Orders Only [facility] [address] [facility] [place] [address] Jeanna Oleary MD 06/12/2024 Telephone [facility] [address] [facility] [place] [address] Jeanna Oleary MD chart prep 06/03/2024 9:30 AM EST Telemedicine [facility] [address] [facility] [place] [address] Estefanía Cervantes, PharmNannette Type 2 diabetes mellitus with hyperglycemia, with long-term current use of insulin ([facility]) (Primary Dx); Benign hypertension 06/03/2024 Travel 06/03/2024 Refill [facility] [address] [facility] [place] [address] Jeanna Oleary MD Pruritus, unspecified; Pruritus, unspecified 05/28/2024 Orders Only [facility] [address] [facility] [place] [address] Jeanna Oleary MD Type 2 diabetes mellitus with hyperglycemia, with long-term current use of insulin (CMS/HCC) (Primary Dx) 05/28/2024 Telephone [facility] [address] [place] [address] Jeanna Oleary MD 05/16/2024 Telephone [facility] [address] [facility] [place] [address] Jeanna Oleary MD Prior Authorization (Todd) 05/14/2024 Refill [facility] [address] [facility] [place] [address] Jeanna Oleary MD Class 3 severe obesity due to excess calories without serious comorbidity with body mass index (BMI) of 40.0 to 44.9 in adult ([facility]); Type 2 diabetes mellitus with hyperglycemia, with long-term current use of insulin ([facility]) 04/28/2024 11:30 AM EST Clinical Support [facility] [address] [facility] [place] [address] Mateusz Aguilar, MINNA Visit for suture removal (Primary Dx) 04/28/2024 9:00 AM EST Telemedicine [facility] [address] [facility] [place] [address] Consuelo Lovelace RN Type 2 diabetes mellitus with other neurologic complication, without long-term current use of insulin ([facility]) 04/28/2024 Telephone [facility] [address] [facility] [place] [address] Jeanna Oleary MD 04/28/2024 Travel 04/24/2024 9:00 AM EST Telemedicine [facility]NUTR[facility] [address] [place] [address] Consuelo Lovelace RN Type 2 diabetes mellitus with other neurologic complication, without long-term current use of insulin ([facility]) 04/24/2024 Orders Only GENERIC EXTERNAL DATA DEPARTMENT Provider, Generic External Data 04/24/2024 Travel 04/22/2024 10:00 AM EST Clinical Support [facility] [address] [facility] [place] [address] Consuelo Lovelace RN Type 2 diabetes mellitus with other neurologic complication, without long-term current use of insulin (CMS/HCC) 04/22/2024 9:00 AM EST Office Visit [facility] [address] [place] [address] Jeanna Oleary MD Epidermoid cyst (Primary Dx) 04/22/2024 Travel 04/17/2024 10:00 AM EST Telemedicine [facility] [address] [facility] [place] [address] Consuelo Lovelace, MINNA Type 2 diabetes mellitus with other neurologic complication, without long-term current use of insulin ([facility]) 04/17/2024 Travel 04/15/2024 9:00 AM EST Telemedicine [facility]/NTRN [address] [place] [address] Consuelo Lovelace RN Type 2 diabetes mellitus with other neurologic complication, without long-term current use of insulin ([facility]) 04/15/2024 Travel from Last 3 Months Immunizations Name [...] Info) Description 08/04/2024 9:30 AM EDT Telemedicine [facility] [address] [place] [address] Estefanía Cervantes, PharmD [address] [place] [address] Health Maintenance Due Date Last Done Comments [...] long-term current use of insulin ([facility]) POCT GLUCOSE Routine 06/16/2024 10:38 AM EST Type 2 diabetes mellitus with hyperglycemia, with long-term current use of insulin ([facility]) ALBUMIN, RANDOM URINE W/CREATININE Routine 06/13/2024 [...] Media Lot # [id number] Lot# Expiration Date [id number] Blood 06/16/2024 10:3 9 AM EST Jeanna Oleary MD POINT OF CARE TEST ENTER/ED IT ORDERABLES Final Result * POCT Glucose (06/16/2024 10:38 AM EST) Glucose Blood, POC 176 60 - 200 mg/dL QC Media Lot # [id number] Lot# Expiration Date [id number] Comment:random Blood Capillary blood specimen / Unknown 06/16/2024 10:38 AM EST Jeanna Oleary MD POINT OF CARE TEST ENTER/ED IT ORDERABLES Final Result * (ABNORMAL) Albumin, Random Urine W/Creatinine (06/13/2024 10:55 AM EST) Creatinine, Urine 87.64 mg/dL [facility] Microalbumin Urine 450.0 mg/L [facility] Microalbum Creatinine Ratio Ur 513.4(H) <30 ug/mg cr [facility] Comment:Albumin/Creatinine R at Reference Ranges: Normal: < 30 ug/mg creatinine Microalbuminuria: 30 - 300 ug/mg creatinineClinical Albuminuria: > 300 ug/mg creatinine 06/13/2024 10:5 5 AM EST 06/13/2024 1:21 PM EST Jeanna Oleary MD LAB URINE ORDERABLES Final Result Performing Organization Address [facility] Co de Phone Number [facility] [address] [place] [phone] * Testosterone, Total, males (Adult), [place] (06/13/2024 10:47 AM EST) Only the most recent of2 resultswithin the time period is included. Testosterone, Total 549 250 - 1100 ng/dL [facility] Comment:Men with clinically significant hypogonadalsymptoms and testosterone values repeatedly inthe range of the 200-300 ng/dL or less, maybenefit from testosterone treatment afteradequate risk and benefits counseling.For additional information, please refer [email or web address].[email or web address]/faq/[email or web address](This link is being provided for informational/educational purposes only.)This test was developed and its analytical performancecharacteristics have been determined by [employer] [place], [place]. It hasnot been cleared or approved by the U.S. Food and DrugAdministration. This assay has been validated pursuantto the CLIA regulations and is used for clinicalpurposes.THIS TEST WAS PERFORMED AT:[employer] [place] [address]KQHLERJLEONORA MCNEIL MD,PHD 06/13/2024 10:4 7 AM EST 06/13/2024 1:31 PM EST us Generic External Data Provider LAB BLOOD ORDERAB LES Final Result Performing Organization Address [facility]/ZIP Co de Phone Number [facility] [address] [place] [phone] * Vitamin B12 (06/13/2024 10:47 AM EST) Vitamin B12 704 200 - 900 pg/mL [facility] Comment:NORMAL 200-900 PG/M L INDETERMINATE 160-199 PG/ML DEFICIENT < 160 PG/ML 06/13/2024 10:4 7 AM EST 06/13/2024 1:31 PM EST us Jeanna Oleary MD LAB BLOOD ORDERABLES Final Result [facility] [address] [place], [place] [phone] * (ABNORMAL) Comprehensive Metabolic Panel (06/13/2024 10:47 AM EST) Sodium 137 135 - 145 mmol/L [facility] Potassium 4.9 3.3 - 5.1 mmol/L [facility] Chloride 104 96 - 108 mmol/L [facility] Carbon Dioxide 22 22 - 29 mmol/L [facility] Anion Gap 16 12 - 20 [facility] Urea Nitrogen (BUN) 19(H) 9 - 16 mg/dL [facility] Creatinine, Serum 0.84 0.5 - 1.4 mg/dL [facility] Estimated Glomerular Filt Rate >60 [facility] Comment:Chronic Kidney Disea se: Estimated GFR < 60 mL/min/1.63n1Todbfg Kidney Disease: Estimated GFR < 15 mL/min/1.73m2 Glucose 194(H) 60 - 115 mg/dL [facility] Calcium 9.3 8.4 - 10.2 mg/dL [facility] Bilirubin, Total 0.5 0.0 - 1.0 mg/dL [facility] Aspartate Amino Transferase 46(H) 5 - 37 U/L [facility] Alanine Aminotransferase 47(H) 0 - 40 U/L [facility] Total Protein 7.3 6.5 - 8.0 g/dL [facility] Albumin Level 4.0 3.5 - 5.0 g/dL [facility] Alkaline Phosphatase 62 39 - 117 U/L [facility] 06/13/2024 10:4 7 AM EST 06/13/2024 1:31 PM EST us Jeanna Oleary MD LAB BLOOD ORDERABLES Final Result [facility] [address] [place] [phone] * CT Lung Screening Low dose (05/21/2024 6:59 AM EST) Anatomical Region Laterality Modality Lung Computed Tomogra phy 05/21/2024 6:59 AM EST Narrative 05/21/2024 7:01 AM EST ? [facility] ?[address] ?[place] [address] ? CT Scan Report ? Signed ? Patient: Demears,Jaime J ?MR#: [id number] ?? 263 ? : 1955 ?Acct:[id number] ? Age/Sex: 68 / M ?ADM Date: 05/20/24 ? Loc: HO.CT ? Attending Dr: Mercy Youssef PA-C ? Ordering Physician: Mercy Youssef PA-C ?? Date of Service: 05/20/24 ?? Procedure(s): CT lung screening ?? Accession Number(s): [id number] ? cc: Jeanna Oleary MD; Mercy Youssef PA-C ? Report Number: ?? [id number]: Total DLP = ?? 76.00 mGy-cm ? [...] in OV> ? 05/21/24 0700 ? DD/ ? TD/TT: 05/21/24658 ? Supervisor Capacitor Processing: ? Procedure Note Cassy Webb - 05/21/[address] [place] [address] [address] Scan Report Signed Patient: Jaime Hamlin R#: [id number] : 5Acct:[id number] Age/Sex: 68 / MADM Date: 05/20/24 Loc: HO.CT Attending Dr: Mercy Youssef PA-C Ordering Physician: Mercy Youssef PA-C Date of Service: 05/20/24 Procedure(s): CT lung screening Accession Number(s): [id number] cc: Jeanna Oleary MD; Mercy Youssef PA-C Report Number: [id number]: Total DLP = 76.00 mGy-cm CLINICAL HISTORY: [...] by Jordan Buck MD in OV> 05/21/24 07 DD/ 8 TD/TT: 05/21/24658 Supervisor Capacitor Processing: [facility] External Provider IMG CT PROCEDURES Edited [...] No ?Instructions and paperwork completed: Yes ?? [place] protocol: ??Procedure explained and questions answered to [...] 8:45 AM EDT) Triglycerides 155(H) <150 mg/dL [facility] Comment:Desirable Triglyceri de: less than 150 mg/dLBorderline High Triglyceride 150-199 mg/dLHigh Triglyceride: 200-499 mg/dLVery High Triglyceride: greater than or equal to 5OO mg/dL Cholesterol 99 <200 mg/dL [facility] Comment:Desirable Cholestero l: less than 200 mg/dLBorderline High Cholesterol: 200-239 mg/dLHigh Cholesterol: greater than 239 mg/dL LDL Cholesterol Calculated 32 <100 mg/dL [facility] Comment:Desirable LDL: less than 100 mg/dLNear Optimal/Above Optimal LDL: 110- 129 mg/dLBorderline High LDL: 130-159 mg/dLHigh LDL: 160-189 mg/dLVery High LDL: greater than or equal to 190 mg/dL HDL Cholesterol 36(L) >40 mg/dL [facility] Comment:Desirable HDL: great er than 40 mg/dL Note: This HDL assay may give artificially low results in patients with liver disease. 11/26/2023 8:45 AM EDT 11/26/2023 8:45 AM EDT us Generic External Data Provider LAB BLOOD ORDERAB LES Final Result [facility] [address] [place] [phone] * (ABNORMAL) Colonoscopy (02/15/2023) Anatomical Region [...] Most Recently Relevant to Health Maintenance Insurance [employer] MED[employer]ARE ADVANTAGE HMO Care Teams Building Services Supervisor Relationship Specialty Start Date End Date Jeanna Oleary MD [address] [place] [phone] PCP - General Internal Medicine 12/19/16 Estefanía Cervantes, DayneD [address] [place] [phone] Pharmacist Internal Medicine 06/03/24
--- OUTSIDE RECORDS SUMMARY | 2024-07-10 09:09 | XMS_ITS ---
Author Organization [facility] kumar Guayama Address [address] [place] [address] Care Team Providers Care Professor Of Economics Name Role Phone Richard Oleary MD Primary Care Provider Jas Sommer Unavailable [phone] Allergies No Known Allergies REASON FOR VISIT [...] Type 2 diabetes mellitus with peripheral angiopathy (885832305) Type 2 diabetes mellitus with diabetic peripheral angiopathy without gangrene (E11.51) Active confirmed Q7(A), Q8(2B), Q9(1B,2C) Problem Acquired hammer toe of right foot (0468253079233 105) Other hammer toe(s) (acquired), right foot (M20.41) Active confirmed Problem Acquired hammer toe of left foot (9543711247203 103) Other hammer toe(s) (acquired), left foot (M20.42) Active confirmed Vital Signs Height 5 ft 10 in in 02/22/2024 Weight 243 lbs 02/22/2024 BMI 34.86 kg/m2 02/22/2024 Blood pressure systolic 128 mm Hg 02/22/20 24 Blood pressure diastolic 80 mm Hg 024 Encounters Encounter Location Date Provider Diagnosis [facility] [address] [address] 02/22/2024 Jas Ivan Pain in left foot [...] Provider Name:Jas Love , 02/20/2025 09:00:00 AM, [address] [place] [address], [phone], Progress Notes * Jaime HAMLINDOB:[birth year] (68 yo M)Acc No.[id number]:02/22/2024 Progress Notes Patient:?Jaime HAMLIN Provider:?Jas Love DPM :1955???Age:68 Y???Sex:Male Giovanni e:02/22/2024 Address:[address] [place], [place] [phone] Pcp:Richard Oleary MD Subjective: * Chief Complaints: [...] INSTRUCTIONS.pdf (DIABETIC FOOT CARE INSTRUCTIONS.pdf)?? * Procedure Codes:?21965 X-RAY EXAM OF LEFT FOOT 3V, Modifiers: [...] Love DPM Date:?2023 Generated for Mervat lowry/Darek/Nicky on:?07/10/2024 09:08 AM EST History and Physical Notes * [...]
--- OUTSIDE RECORDS SUMMARY | 2024-07-10 09:09 | XMS_ITS | Encounter Summary ---
Author Organization [employer] Address [address] [facility] 7t [place] [address] Care Team Providers Care Telecom Field Technician Name Role Phone Jeanna Oleary MD Primary Care Provider [phone] Estefanía Cervantes PharmD Unavailable [phone] Encounter Details Date Type Department Care Team [...] Info) Description 08/04/2024 9:30 AM EDT Telemedicine [facility] [address] [place] [address] Estefanía Cervantes PharmD [address] [place] [address] documented as of this encounter Visit Diagnoses Not on filedocumented in this encounter Additional Health Concerns Assessment Noted Time PHQ-9 Depression Total Score: 3 06/16/19 25 10:59 AM EST documented as of this encounter Care Teams Telecom Field Technician Relationship Specialty Start Date End Date Jeanna Oleary MD [address] [place] [address] PCP - General Internal Medicine 12/19/16 Estefanía Cervantes, DayneD [address] [place] [address] Pharmacist Internal Medicine 06/03/24 documented as of this encounter
--- OUTSIDE RECORDS SUMMARY | 2024-07-10 09:09 | XMS_ITS ---
[facility] Address [address] [place] [address] Care Team Providers Care Hi Low Truck Driver Name Role Phone Richard Oleary MD Primary Care Provider Jas Sommer Unavailable [phone] Encounters Encounter Location Date Provider Diagnosis [address] [address] 02/15/2024 Jas Love Plan Of Treatment Next Appt Details Provider Name:Jas Love , 02/20/2025 09:00:00 AM, [address] [place], [address], Progress Notes * Jaime HAMLINDOB:[birth year] (68 yo M)Acc No.[id number]:02/15/2024 Progress Notes Patient:?Jaime HAMLIN Provider:?Jas Love DPM :1955???Age:68 Y???Sex:Male Giovanni e:02/15/2024 Address:[address] [place] [address] [facility] [place] [phone] Pcp:Richard Oleary MD Subjective: * Chief Complaints: [...] DPM Date:?2023 Generated for Mervat lowry/Darek/Nicky on:?07/10/2024 09:09 AM EST
== END 2024-07-10 08:39 | disposition home or self-care (01) ==
LOC: HO.US 08:38
PROVIDERS: PCP Internal Medicine; Visit Provider Internal Medicine
DX: R74.01 Elevation of levels of liver transaminase levels (principal)
CPT/HCPCS: 76700

== ENCOUNTER → 2024-07-10 08:40 | Outpatient (BNV) | payer MEDICARE, SELFPAY | PROVIDERS: PCP Internal Medicine; Visit Provider Radiology Diagnostic Radiology | DX: N28.1 Cyst of kidney, acquired (principal) | CPT/HCPCS: 76700 ==

== ENCOUNTER 2024-08-14 11:57 | Outpatient (REF) | payer MEDICARE, SELFPAY ==
--- OUTSIDE RECORDS SUMMARY | 2024-08-14 14:39 | XMS_ITS | Encounter Summary ---
Author Organization [employer] Address [address] [facility] 7t [place] [address] Care Team Providers Care Muff Winder Name Role Phone Jeanna Oleary MD Primary Care Provider [phone] Estefanía Cervantes PharmD Unavailable [phone] Encounter Details Date Type Department Care Team (Late st Contact Info) Description 09/05/2023 Orders Only [facility] CH[facility] MED & PEDS [address] [place], [place] [phone] Jeanna Oleary MD [address] [place] [address] Hyperkalemia (Primary Dx); Type 2 diabetes mellitus with hyperglycemia, with long-term current use of insulin ([facility]); Erectile disorder Social History Tobacco Use Types [...] Care Team (Late st Contact Info) Description 01/26/2025 9:00 AM EDT Telemedicine [facility] MED & PEDS [address] [place] [address] Estefanía Cervantes PharmD [address] [place] [address] Scheduled Orders Name Type Priority Associated Diagnoses [...] Testosterone, Total 98(A) 250 - 1100 ng/dL [facility] Comment:Men with clinically significant hypogonadalsymptoms and testosterone values repeatedly inthe range of the 200-300 ng/dL or less, maybenefit from testosterone treatment afteradequate risk and benefits counseling.For additional information, please refer [email or web address].LawyerPaid/faq/[email or web address](This link is being provided for informational/educational purposes only.)This test was developed and its analytical performancecharacteristics have been determined by [place] It hasnot been cleared or approved by the U.S. Food and DrugAdministration. This assay has been validated pursuantto the CLIA regulations and is used for clinicalpurposes. Testosterone, Free 14.7(A) 35.0 - 155.0 pg/mL [facility] Comment:This test was develo ped and its analytical performancecharacteristics have been determined by [place] [employer]. It hasnot been cleared or approved by the U.S. Food and DrugAdministration. This assay has been validated pursuantto the CLIA regulations and is used for clinicalpurposes.THIS TEST WAS PERFORMED AT:[employer] [place] [address]YLKBWNQLEONORA MCNEIL MD,PHD Blood Venous blood specimen / Unknown 10/03/2023 12:52 PM EDT 10/03/2023 4:32 PM EDT Jeanna Oleary MD LAB BLOOD ORDERABLES Final Result [facility] [address] [place] [address] [phone] documented in this encounter Visit Diagnoses Diagnosis Hyperkalemia- Primary Hyperpotassemia Type 2 diabetes mellitus with hyperglycemia, with long-term current use of insulin ([facility]) Erectile disorder documented in this encounter Additional Health Concerns Assessment Noted Time PHQ-9 Depression Total Score: 0 11/24/19 23 10:27 AM EDT documented as of this encounter Care Teams Muff Winder Relationship Specialty Start Date End Date Jeanna Oleary MD [address] [place] [address] PCP - General Internal Medicine 12/19/16 Estefanía Cervantes PharmD [address] [place] [address] Pharmacist Internal Medicine 06/03/24 documented as of this encounter
--- OUTSIDE RECORDS SUMMARY | 2024-08-14 14:39 | XMS_ITS | Encounter Summary ---
Author Organization [employer] Address [address] [facility] 7t [place] [address] Care Team Providers Care Inside Sales Manager Name Role Phone Jeanna Oleary MD Primary Care Provider [phone] Estefanía Cervantes PharmD Unavailable [phone] Reason for Visit * Reason Comments Med Refill Encounter Details Date Type Department Care Team ([facility] st Contact Info) Description 09/14/2023 Refill [facility] CHC MED & PEDS [address] [place], [place] [phone] Jeanna Oleary MD [address] [place] [address] Type 2 diabetes mellitus without complications (CMS/HCC) [...] Info) Description 01/26/2025 9:00 AM EDT Telemedicine [facility] MED & PEDS [address] [place] [address] Estefanía Cervantes PharmD [address] [place] [address] documented as of this encounter Visit Diagnoses Diagnosis Type 2 diabetes mellitus without complications (CMS/HCC) documented in this encounter Additional Health Concerns Assessment Noted Time PHQ-9 Depression Total Score: 0 11/24/19 23 10:27 AM EDT documented as of this encounter Care Teams Inside Sales Manager Relationship Specialty Start Date End Date Jeanna Oleary MD [address] [place] [address] PCP - General Internal Medicine 12/19/16 Estefanía Cervantes PharmD [address] [place] [address] Pharmacist Internal Medicine 06/03/24 documented as of this encounter
--- OUTSIDE RECORDS SUMMARY | 2024-08-14 14:39 | XMS_ITS | Encounter Summary ---
Author Organization [employer] Address [address] [place] [address] 7 [place] [address] Care Team Providers Care Plastics Seasoner Operator Name Role Phone Jeanna Oleary MD Primary Care Provider [phone] Estefanía Cervantes PharmD Unavailable [phone] Reason for Visit * Consultation (Routine) - Pending Review Specialty Diagnoses / Procedures Referred By Contac t Referred To Contact Pharmacy Diagnoses Type 2 diabetes mellitus with hyperglycemia, with long-term current use of insulin (CMS/HCC) Jeanna Oleary MD [address] [place] [address] Phone: tel: fax: Referral ID Status Reason Start Date Expiration Date Visits Requested Visits Authorized [id number] Pending Review Consult and Treat 05/28/2024 05/28/2025 6 6 Encounter Details Date Type Department Care Team ([facility] st Contact Info) Description 08/04/2024 9:30 AM EDT Telemedicine [facility] CHC MED & PEDS [address] [place] [address] Estefanía Cervantes, PharmD [address] [place] [address] Type 2 diabetes mellitus with hyperglycemia, with [...] AM EDT documented as of this encounter Progress Notes * Estefanía Cervantes PharmD - 08/04/2024 9:30 AM EDT Images from the original note were not included. Pharmacy Consult Visit Type: [facility] Pharmacist: Estefanía Cervantes PharmD Jaime Hamlin is a 69 y.o. year old patient here for a follow-up visit completed over the phone. Subjective History: General / Intake (updated 06/03/24) Allergies: is allergic to hydroxyzine. Read/Write: Yes, in Persian Recent Hospitalizations: No Social History as reported [...] vitamin, supplement use: denies Type 2 Diabetes Reports recently returning from vacation in [place] and was able to manage and limit dietary excursions. Denies use of glipizide, however wants to keep this medication on hand just in case . Confirms continued use of Mounjaro and metformin. Re: labs ordered 06/13/24: Estefanía Cervantes PharmD 06/16/2024 1:50 PM EST Lab results notable for albuminuria. Discussed with PCP, patient is a candidate for SGLT2i. PCP recommended avoiding additional medications for now and defer to cardiology, as patient reports seeing board runner later this month. Lab results notable for transaminitis. Will continue to monitor. Patient reports following with renal every 6 months and has an appt on 10/13/24. PCP has ordered additional testing to check hepatic function, possible cirrhosis noted 07/11/24. Patient reports losing a total of 85lbs since starting Mounjaro. Pertinent negatives include polyuria, polydipsia, blurred vision CGM: [employer] Mobile Yahir 2 Plus. Patient connected to remote monitoring via [employer]. AGP included below: Patient previously required 76 units of Tresiba daily and 30-40 units of Novolog with meals. Patient has been able to remain off insulin with the use of CGM as well as Mounjaro and lifestyle interventions. Has been using CGM since September 2023 and is a good candidate to continue use due to age and comorbid conditions. Discontinuation of CGM could result in the patient losing what progress has been made in controlling diabetes. Objective History: Treatment history/considerations: PMH: neuropathy, TAE, a. Fib, COPD, HTN, GERD, CKD 3a, osteoarthritis, obesity, T2DM, hyperlipidemia Medication: n/a Recent labs: Lab Results Component Value Date ALT 47 (H) 06/13/2024 AST 46 (H) 06/13/2024 LDLCHOLCAL 32 11/26/2023 TRIG 155 (H) 11/26/2023 K 4.9 06/13/2024 NA 137 06/13/2024 VITB12 704 06/13/2024 MICROALBCREU 513.4 (H) 06/13/2024 CREATININE 0.84 06/13/2024 EGFR >60 06/13/2024 HGBA1C 6.6 (A) 06/16/2024 HGBA1C 6.5 (A) 02/20/2024 HGBA1C 6.3 (A) 11/01/2023 CrCl (AdjBW)= 93 mL/min Recent blood pressure readings: BP Readings from Last 4 Encounters: 06/16/24 129/74 06/03/24 118/79 04/22/24 (!) 159/74 02/20/24 (!) 143/85 Pulse Readings from Last 4 Encounters: 06/16/24 83 06/03/24 78 04/22/24 80 02/20/24 92 Immunizations Due: Pharmacist reviewed immunization records today; no vaccination gaps exist at this time. Could consider checking Hepatitis B titers as 3rd dose of Hep B was considered invalid; pt is 68 y/o Preferred Pharmacy: [facility] [place] [address] [place], [place] [address] [address] Assessment/Plan: Type 2 Diabetes Pharmacologic Therapy: Glipizide 5mg twice daily before meals IF NEEDED - not currently taking Metformin 1000mg twice daily Mounjaro 15mg weekly Additional recommendations per ADA: On [...] while also minimizing episodes of hypoglycemia Plan: CGM data shows diabetes is well-controlled, with TIR = 89% and GMI = 6.8%. Continue current therapyand monitoring. Follow up in [facility] in about 6 months. Education: Healthy diet and lifestyle. Discussed role of A1c monitoring, A1c and SMBG goals Reviewed risks of macro- and microvascular complications of uncontrolled DM. Reviewed signs, symptoms and treatments of hypoglycemia to which patient confirmed understanding. documented in this encounter Plan of Treatment Upcoming Encounters Date Type Department Care Team (Late st Contact Info) Description 01/26/2025 9:00 AM EDT Telemedicine [facility] MED & PEDS [address] [place] [address] Estefanía Cervantes PharmD [address] [place] [address] documented as of this encounter Visit Diagnoses Diagnosis Type 2 diabetes mellitus with hyperglycemia, with long-term current use of insulin ([facility])- Primary documented in this encounter Additional Health Concerns Assessment Noted Time PHQ-9 Depression Total Score: 3 06/16/19 25 10:59 AM EST documented as of this encounter Care Teams Plastics Seasoner Operator Relationship Specialty Start Date End Date Jeanna Oleary MD [address] [place] [address] PCP - General Internal Medicine 12/19/16 Estefanía Cervantes PharmD [address] [place] [address] Pharmacist Internal Medicine 06/03/24 documented as of this encounter
--- OUTSIDE RECORDS SUMMARY | 2024-08-14 14:39 | XMS_ITS | Encounter Summary ---
Author Organization [employer] Address [address] [place] [address] 7 [place] [address] Care Team Providers Care Plug And Mold Finisher Name Role Phone Jeanna Oleary MD Primary Care Provider [phone] Estefanía Cervantes PharmD Unavailable [phone] Reason for Referral * Imaging (Routine) - Authorized Specialty Diagnoses / Procedures Referred By Contac t Referred To Contact Radiology Diagnoses Hepatomegaly Procedures US Abdomen Comp w elastography Jeanna Oleary MD [address] [place] [address] Phone: tel: fax: [address] Phone: tel: fax: Referral ID Status Reason Start Date Expiration Date V isits Requested Visits Authorized [id number] Authorized 07/11/2024 07/11/2025 1 1 Encounter Details Date Type Department Care Team (Late st Contact Info) Description 07/11/2024 Orders Only [facility] MEDICINE [address] [place] [address] Jeanna Oleary MD [address] [place] [phone] Hepatomegaly (Primary Dx); Primary osteoarthritis of other site Social History Tobacco Use Types Packs/Day Years [...] Info) Description 01/26/2025 9:00 AM EDT Telemedicine [facility] CHC MED & PEDS [address] [place] [address] Estefanía Cervantes, PharmD [address] [place] [address] Scheduled Orders Name Type Priority Associated Diagnoses Orde r Schedule US Abdomen Comp w elastography Imaging Routine Hepatomegaly Expected: 07/11/2024 (Approximate), Expires: 07/11/2025 Dexa Scan Imaging Routine Hepatomegaly Primary osteoarthritis of other site Expected: 07/11/2024 (Approximate), Expires: 10/11/2024 documented as of this encounter Visit Diagnoses Diagnosis Hepatomegaly- Primary Primary osteoarthritis of other site documented in this encounter Additional Health Concerns Assessment Noted Time PHQ-9 Depression Total Score: 3 06/16/19 10:59 AM EST documented as of this encounter Care Teams Plug And Mold Finisher Relationship Specialty Start Date End Date Jeanna Oleary MD [address] [place] [address] PCP - General Internal Medicine 12/19/16 Estefanía Cervantes PharmD [address] [place] [address] Pharmacist Internal Medicine 06/03/24 documented as of this encounter
--- OUTSIDE RECORDS SUMMARY | 2024-08-14 14:39 | XMS_ITS | Encounter Summary ---
Author Organization [employer] Address [address] [facility] 7t [place] [address] Care Team Providers Care Transmission Rebuilder Name Role Phone Jeanna Oleary MD Primary Care Provider [phone] Estefanía Cervantes PharmD Unavailable [phone] Encounter Details Date Type Department Care Team (Late st Contact Info) Description 01/01/2024 Orders Only [facility] CHC MED & PEDS [address] [place], [place] [phone] Jeanna Oleary MD [address] [place] [address] Type 2 diabetes mellitus with hyperglycemia, with long-term current use of insulin ([facility]) (Primary Dx) Social History Tobacco Use Types [...] Info) Description 01/26/2025 9:00 AM EDT Telemedicine [facility] MED & PEDS [address] [place] [address] Estefanía Cervantes PharmD [address] [place] [address] documented as of this encounter Visit Diagnoses Diagnosis Type 2 diabetes mellitus with hyperglycemia, with long-term current use of insulin ([facility])- Primary documented in this encounter Additional Health Concerns Assessment Noted Time PHQ-9 Depression Total Score: 0 11/24/19 23 10:27 AM EDT documented as of this encounter Care Teams Transmission Rebuilder Relationship Specialty Start Date End Date Jeanna Oleary MD [address] [place] [address] PCP - General Internal Medicine 12/19/16 Estefanía Cervantes, DayneD [address] [place], [place] [phone] Pharmacist Internal Medicine 06/03/24 documented as of this encounter
--- OUTSIDE RECORDS SUMMARY | 2024-08-14 14:39 | XMS_ITS | Clinical Summary ---
Author Organization [employer] Address [address] [place] [address] [address] [place] [address] Care Team Providers Care Ct Technician Name Role Phone Jeanna Oleary MD Primary Care Provider [phone] Estefanía Cervantes PharmD Unavailable [phone] Allergies Active Allergy Reactions Criticality Noted Date Comments Hydroxyzine 08/16/2022 Other reaction(s): ITCHY Other reaction(s): ITCHY Medications glucose-vitamin C 4-6 GM-MG oral gel 1 tab as needed if FS less than 70 mg/dl 01/07/20 20 Active fexofenadine (Yadira) 180 MG tabletIndications :Pruritus, unspecified TAKE ONE TABLET BY MOUTH EVERY DAY 90 tablet 1 01/30/20 23 Active triamcinolone (Kenalog) 0.1 % creamIndications: Rash and other nonspecific skin eruption APPLY A THIN LAYER TO THE AFFECTED AREA(s) TWICE DAILY, MIX WITH cerave cream 80 g 5 05/14/19 24 Active nystatin (Mycostatin) 168561 UNIT/GM powder APPLY TO THE AFFECTED AREA(S) TWICE DAILY 60 g 2 05/23/19 24 Active Fluticasone-Salme terol (Advair Diskus) 250-50 MCG/ACT aerosol powder USE ONE INHALATION TWICE DAILY. RINSE MOUTH AFTER USE 60 each 5 08/20/19 24 Active Continuous Glucose Nurse'S Companion (FreeStyle Yahir 2 Cooks) deviceIndications :Type 2 diabetes mellitus with hyperglycemia, with long-term current use of insulin ([facility]) Scan sensor every 8 hours 1 each 09/11/19 24 Active OneTouch Ultra Test test stripIndications: Type 2 diabetes mellitus without complications ([facility]) TEST BLOOD SUGAR SIX TIMES DAILY 200 strip 5 09/14/19 24 Active Ostomy Supplies (Skin Prep Wipes) miscIndications:T ype 2 diabetes mellitus with hyperglycemia, with long-term current use of insulin ([facility]) To wipe the skin prior to applying the sensor 2 times a month 50 each 11 09/20/19 24 Active Spiriva HandiHaler 18 MCG inhalation capsuleIndication s:Mixed simple and mucopurulent chronic bronchitis ([facility]) USE 1 CAPSULE FOR INHALATION ONCE A DAY DO NOT SWALLOW CAPSULE 30 capsule 6 10/02/19 24 Active BD Pen Needle Anny U/F 32G X 4 MM miscIndications:T ype 2 diabetes mellitus with diabetic neuropathy, unspecified ([facility]) USE FOUR DAILY 90 each 10/03/19 24 025 Active furosemide (Lasix) 20 MG tablet TAKE ONE TABLET TWICE DAILY 180 tablet 1 01/28/20 24 Active glipiZIDE (Glucotrol) 5 MG tabletIndications :Type 2 diabetes mellitus with hyperglycemia, with long-term current use of insulin ([facility]) Take 1 tablet (5 mg) by mouth before breakfast and before evening meal. TAKE 4 TABLETS Twice daily before meals 180 tablet 3 02/04/20 24 025 Active omeprazole (PriLOSEC) [address] capsule TAKE ONE CAPSULE BY MOUTH TWICE DAILY BEFORE MEALS 180 capsule 3 03/28/20 24 Active gabapentin (Neurontin) 800 MG tablet TAKE ONE TABLET BY MOUTH THREE TIMES DAILY 270 tablet 1 03/28/20 24 Active metoprolol succinate XL (Toprol-XL) 25 MG 24 hr tablet TAKE ONE TABLET EVERY MORNING 90 tablet 3 04/09/20 24 Active Xarelto 20 MG tablet TAKE ONE TABLET DAILY WITH SUPPER 90 tablet 3 04/09/20 24 Active Mounjaro 15 MG/0.5ML solution auto-injectorIndi cations:Class 3 severe obesity due to excess calories without serious comorbidity with body mass index (BMI) of 40.0 to 44.9 in adult ([facility]),Type 2 diabetes mellitus with hyperglycemia, with long-term current use of insulin ([facility]) INJECT 15 SUBCUTANEOUSLY ONCE A WEEK 2 mL 3 05/14/19 25 Active hydrOXYzine HCl (Atarax) 50 MG tabletIndications :Pruritus, unspecified TAKE ONE TABLET FOUR TIMES DAILY 120 tablet 5 06/04/19 25 Active Ferrous Sulfate (iron) 325 (65 Fe) MG tablet TAKE ONE TABLET EVERY DAY 30 tablet 3 06/04/19 25 Active doxepin (SINEquan) 25 MG capsuleIndication s:Pruritus, unspecified TAKE 1 TO 2 CAPSULES EVERY NIGHT AT BEDTIME 60 capsule 5 06/04/19 25 Active Continuous Glucose Sensor (FreeStyle Yahir 2 Plus Sensor) miscIndications:T ype 2 diabetes mellitus with hyperglycemia, with long-term current use of insulin (CMS/HCC) 1 each Once per day. 2 each 11 06/03/19 25 Active losartan (Cozaar) 25 MG tabletIndications :Benign hypertension Take 1 tablet (25 mg) by mouth Once per day. 90 tablet 3 06/03/19 25 Active cholecalciferol (Vitamin D-3) 25 MCG tabletIndications :Vitamin D deficiency TAKE ONE TABLET DAILY 90 tablet 1 07/01/19 25 Active metFORMIN (Glucophage) 1000 MG tabletIndications :Type 2 diabetes mellitus with diabetic neuropathy, unspecified (CMS/HCC) TAKE ONE TABLET TWICE DAILY 180 tablet 2 07/01/19 25 Active rosuvastatin (Crestor) 40 MG tabletIndications :Hypercholesterol emia TAKE ONE TABLET BY MOUTH EVERY DAY 90 tablet 5 07/15/19 25 Active Active Problems Problem Noted Date Diagnosed [...] Encounters Date Type Department Care Team Description 08/04/2024 9:30 AM EDT Telemedicine [facility] [address] [place] [address] Estefanía Cervantes, PharmD Type 2 diabetes mellitus with hyperglycemia, with long-term current use of insulin (CMS/HCC) (Primary Dx) 07/15/2024 Telephone [facility] [address] [place] [address] Natalie Orr, RN Results; Lab Orders 07/15/2024 Telephone [facility] [address] [place], [place] [phone] Natalie Orr, hand therapist Orders; Results 07/14/2024 Telephone [facility] [address] [place] [address] Jeanna Oleary MD Results 07/14/2024 Refill [facility] [address] [place] [address] Jeanna Oleary MD Hypercholesterolemia 07/11/2024 Orders Only [facility] [address] [place] [phone] Jeanna Oleary MD Hepatomegaly (Primary Dx); Primary osteoarthritis of other site 07/01/2024 Refill [facility] [address] [place] [phone] Jeanna Oleary MD Vitamin D deficiency; Type 2 diabetes mellitus with diabetic neuropathy, unspecified ([facility]) 06/16/2024 10:00 AM EST Office Visit [facility] [address] [place] [address] Jeanna Oleary MD Benign hypertension (Primary Dx); Type 2 diabetes mellitus with hyperglycemia, with long-term current use of insulin (CMS/HCC); Transaminitis 06/16/2024 Orders Only [facility] [address] [place] [address] Jeanna Oleary MD 06/16/2024 Travel 06/13/2024 Orders Only [facility] [address] [place] [address] Jeanna Oleary MD 06/12/2024 Telephone [facility] [address] [place] [address] Jeanna Oleary MD chart prep 06/03/2024 9:30 AM EST Telemedicine [facility] [address], [place] [phone] Estefanía Cervantes, Gianni Type 2 diabetes mellitus with hyperglycemia, with long-term current use of insulin ([facility]) (Primary Dx); Benign hypertension 06/03/2024 Travel 06/03/2024 Refill [facility] [address] [place] [address] Jeanna Oleary MD Pruritus, unspecified; Pruritus, unspecified 05/28/2024 Orders Only [facility] [address] [place], [place] [phone] Jeanna Oleary MD Type 2 diabetes mellitus with hyperglycemia, with long-term current use of insulin ([facility]) (Primary Dx) 05/28/2024 Telephone [facility] [address] [facility], [place] [phone] Jeanna Oleary MD 05/16/2024 Telephone [facility] [address] [place], [place] [phone] Jeanna Oleary MD Prior Authorization (Mounjaro) from Last 3 Months Immunizations Name Administration [...] Info) Description 01/26/2025 9:00 AM EDT Telemedicine [facility] [address] [place] [address] Estefanía Cervantes, PharmD [address] [place], [place] [phone] Health Maintenance Due Date Last Done Comments CT Colonography 1955 FIT DNA/Cologuard 1955 FIT 1955 FOBT 1955 Sigmoidoscopy 1955 Diabetes: Foot Exam 1964 Hepatitis C Screening 1972 Hepatitis A Vaccines (1 of 2 - Risk 2-dose series) 1973 Hepatitis B Vaccines (3 of 3 - Risk 3-dose series) 06/02/2018 03/04/2018, 12/31/2017, 11/30/2017 Eye [...] Aged 60 years or older Completed 01/19/2023 Influenza Vaccine Completed 01/09/2024, , 02/07/2022, Additional history exists COVID-19 Vaccine Completed 07/31/2024, 08/2023, 02/13/2023, Additional history exists HIB Vaccines Aged Out [...] Procedure Name Priority Date/Time Associated Diagnosis Comments US ABDOMEN COMPLETE Routine 07/10/2024 8 :50 AM EST Transaminitis POCT GLYCATED HEMOGLOBIN, TOTAL Routine 06/16/2024 10:39 AM EST Type 2 diabetes mellitus with hyperglycemia, with long-term current use of insulin ([facility]) POCT GLUCOSE Routine 06/16/2024 10:38 AM EST Type 2 diabetes mellitus with hyperglycemia, with long-term current use of insulin ([facility]) ALBUMIN, RANDOM URINE W/CREATININE Routine 06/13/2024 10:55 AM EST TESTOSTERONE, TOTAL, MALES (ADULT), IA Routine 06/13/2024 10:47 AM EST VITAMIN B12 Routine 06/13/2024 10:47 AM EST COMPREHENSIVE METABOLIC PANEL Routine 06/13/2024 10:47 AM EST LDCT LUNG SCREENING Routine 05/21/2024 6 :59 AM EST LIPID PANEL, STANDARD Routine 11/26/2023 8:45 AM EDT COLONOSCOPY Routine 02/15/2023 HM DIABETES EYE EXAM Routine 02/07/2023 from Last 3 Months or Most Recently Relevant to Health Maintenance Results * US Abdomen Complete (07/10/2024 8:50 AM EST) Anatomical Region Laterality Modality Abdomen Ultrasound 07/10/2024 8:50 AM EST Narrative 07/11/2024 11:53 AM EST ? [facility] ?[address] ?[place] [address] ? Ultrasound Report ? Signed ? Patient: Jaime Hamlin ?MR#: [id number] ?? 263 ? : 1955 ?Acct:[id number] ? Age/Sex: 68 / M ?ADM Date: 07/10/24 ? Loc: HO.US ? Attending Dr: Jeanna Oleary MD ? Ordering Physician: Jeanna Oleary MD ?? Date of Service: 07/10/24 ?? Procedure(s): US abdomen complete ?? Accession Number(s): [id number] ? cc: Jeanna Oleary MD ? EXAMINATION: ??US ABDOMEN ? HISTORY: transaminitis ? TECHNIQUE: Real-time grayscale ultrasound imaging of the abdomen was ?? performed and images were reviewed. ? COMPARISON: Comparison is made with the prior examination dated ?? 12/22/2019. ? FINDINGS: ?? Liver: ??The right lobe of the liver measures 18.8 cm in size. The left ?? lobe of the liver measures 9.1 cm in size. The liver demonstrates ?? coarsened echotexture with a scalloped margin. ??No focal mass or ?? intrahepatic biliary ductal dilatation is identified. ??There is normal ?? hepatopedal flow in the portal vein. ? Gallbladder and biliary tree: The gallbladder is surgically absent. ? The common bile duct is normal in caliber measuring 10 mm. ? Kidneys: ??The right kidney measures 12.1 cm in length and demonstrates ?? a 1.1 cm cyst in the interpolar region. The left kidney measures 11.4 ?? cm in length and demonstrates 9 mm cyst in the interpolar region and an ?? 8 mm cyst at the lower pole. ??The kidneys are otherwise unremarkable, ?? without evidence of solid masses, hydronephrosis, or calculi. There is ?? trace free fluid adjacent to the lower pole of the left kidney. ? Pancreas: The pancreatic head, neck, and body are unremarkable. The ?? pancreatic tail is obscured by bowel gas. ? Spleen: The spleen is normal in size and contour, measuring 12.3 cm in ?? length. ? Abdominal aorta and inferior vena cava: The visualized portions of the ?? abdominal aorta and inferior vena cava are normal in caliber. ? There is no free fluid in the abdomen. ? US/US abdomen complete ?? IMPRESSION: ? 1. Mild hepatomegaly. Coarsened hepatic echotexture with a scalloped ?? margin which can be seen in the setting of cirrhosis. Clinical ?? correlation is recommended. ? 2. Bilateral renal cysts as described. ? Electronically signed by: ??Nigel Gustafson MD ??07/11/2024 11:50 AM EST ? Dictated By: ?Nigel Gustafson MD ? Signed By: ?<Electronically signed by Nigel Gustafson MD in OV> ?07/11/24 1150 ? DD/ 0850 ? TD/TT: 07/10/24 0907 ? Cyber Security Systems Engineer: ? Procedure Note Cassy Webb - 07/11/[address] [address] Ultrasound Report Signed Patient: Jaime Hamlin R#: [id number] : 5Acct:[id number] Age/Sex: 68 / MADM Date: 07/10/24 Loc: HO.US Attending Dr: Jeanna Oleary MD Ordering Physician: Jeanna Oleary MD Date of Service: 07/10/24 Procedure(s): US abdomen complete Accession Number(s): [id number] cc: Jeanna Oleary MD EXAMINATION: US ABDOMEN HISTORY: transaminitis TECHNIQUE: Real-time grayscale ultrasound imaging of the abdomen was performed and images were reviewed. COMPARISON: Comparison is made with the prior examination dated 12/22/2019. FINDINGS: Liver: The right lobe of the liver measures 18.8 cm in size. The left lobe of the liver measures 9.1 cm in size. The liver demonstrates coarsened echotexture with a scalloped margin. No focal mass or intrahepatic biliary ductal dilatation is identified. There is normal hepatopedal flow in the portal vein. Gallbladder and biliary tree: The gallbladder is surgically absent. The common bile duct is normal in caliber measuring 10 mm. Kidneys: The right kidney measures 12.1 cm in length and demonstrates a 1.1 cm cyst in the interpolar region. The left kidney measures 11.4 cm in length and demonstrates 9 mm cyst in the interpolar region and an 8 mm cyst at the lower pole. The kidneys are otherwise unremarkable, without evidence of solid masses, hydronephrosis, or calculi. There is trace free fluid adjacent to the lower pole of the left kidney. Pancreas: The pancreatic head, neck, and body are unremarkable. The pancreatic tail is obscured by bowel gas. Spleen: The spleen is normal in size and contour, measuring 12.3 cm in length. Abdominal aorta and inferior vena cava: The visualized portions of the abdominal aorta and inferior vena cava are normal in caliber. There is no free fluid in the abdomen. US/US abdomen complete IMPRESSION: 1. Mild hepatomegaly. Coarsened hepatic echotexture with a scalloped margin which can be seen in the setting of cirrhosis. Clinical correlation is recommended. 2. Bilateral renal cysts as described. Electronically signed by: Nigel Gustafson MD 07/11/2024 11:50 AM EST Dictated By: Nigel Gustafson MD Signed By: <Electronically signed by Nigel Gustafson MD in OV> 07/11/24 1150 DD/ 0850 TD/TT: 07/10/24 0907 Cyber Security Systems Engineer: Jeanna Oleary MD IMG US PROCEDURES Final Res ult * (ABNORMAL) POCT HGB A1C (06/16/2024 10:39 AM EST) Hemoglobin A1C 6.6(A) 4.0 - 6.0 % QC Media Lot # [id number] Lot# Expiration Date [id number] Blood 06/16/2024 10:3 9 AM EST Jeanna Oleary MD POINT OF CARE TEST ENTER/ED IT ORDERABLES Final Result * POCT Glucose (06/16/2024 10:38 AM EST) Glucose Blood, POC 176 60 - 200 mg/dL QC Media Lot # [id number] Lot# Expiration Date [id number] Comment:random Blood Capillary blood specimen / Unknown 06/16/2024 10:38 AM EST Jeanna Oleary MD POINT OF CARE TEST ENTER/ED IT ORDERABLES Final Result * (ABNORMAL) Albumin, Random Urine W/Creatinine (06/13/2024 10:55 AM EST) Creatinine, Urine 87.64 mg/dL [facility] Microalbumin Urine 450.0 mg/L H [facility] Microalbum Creatinine Ratio Ur 513.4(H) <30 ug/mg cr [facility] Comment:Albumin/Creatinine R atio Reference Ranges: Normal: < 30 ug/mg creatinine Microalbuminuria: 30 - 300 ug/mg creatinineClinical Albuminuria: > 300 ug/mg creatinine 06/13/2024 10:5 5 AM EST 06/13/2024 1:21 PM EST Jeanna Oleary MD LAB URINE ORDERABLES Final Result [facility] [address] [place] [address] [phone] * Testosterone, Total, males (Adult), IA (06/13/2024 10:47 AM EST) Testosterone, Total 549 250 - 1100 ng/dL [facility] Comment:Men with clinically significant hypogonadalsymptoms and testosterone values repeatedly inthe range of the 200-300 ng/dL or less, maybenefit from testosterone treatment afteradequate risk and benefits counseling.For additional information, please refer tohttp://[email or web address]/faq/DgiwtPgyqjxpwswmjHRXVMXWDH389(This link is being provided for informational/educational purposes only.)This test was developed and its analytical performancecharacteristics have been determined by [employer] [place], [place]. It hasnot been cleared or approved by the U.S. Food and DrugAdministration. This assay has been validated pursuantto the CLIA regulations and is used for clinicalpurposes.THIS TEST WAS PERFORMED AT:[employer] [place] [address]JLXKKFNLEONORA MCNEIL MD,PHD 06/13/2024 10:4 7 AM EST 06/13/2024 1:31 PM EST us Generic External Data Provider LAB BLOOD ORDERAB LES Final Result [facility] [address] [place] [phone] * Vitamin B12 (06/13/2024 10:47 AM EST) Vitamin B12 704 200 - 900 pg/mL [facility] Comment:NORMAL 200-900 PG/ML INDETERMINATE 160-199 PG/ML DEFICIENT < 160 PG/ML 06/13/2024 10:4 7 AM EST 06/13/2024 1:31 PM EST us Jeanna Oleary MD LAB BLOOD ORDERABLES Final Result [facility] [address] [place] [address] [phone] * (ABNORMAL) Comprehensive Metabolic Panel (06/13/2024 10:47 AM EST) Sodium 137 135 - 145 mmol/L [facility] Potassium 4.9 3.3 - 5.1 mmol/L [facility] Chloride 104 96 - 108 mmol/L [facility] Carbon Dioxide 22 22 - 29 mmol/L [facility] Anion Gap 16 12 - 20 [facility] Urea Nitrogen (BUN) 19(H) 9 - 16 mg/dL [facility] Creatinine, Serum 0.84 0.5 - 1.4 mg/dL [facility] Estimated Glomerular Filt Rate >60 [facility] Comment:Chronic Kidney Disea se: Estimated GFR < 60 mL/min/1.94n3Wlmiab Kidney Disease: Estimated GFR < 15 mL/min/1.73m2 Glucose 194(H) 60 - 115 mg/dL [facility] Calcium 9.3 8.4 - 10.2 mg/dL [facility] Bilirubin, Total 0.5 0.0 - 1.0 mg/dL [facility] Aspartate Amino Transferase 46(H) 5 - 37 U/L [facility] Alanine Aminotransferase 47(H) 0 - 40 U/L [facility] Total Protein 7.3 6.5 - 8.0 g/dL [facility] Albumin Level 4.0 3.5 - 5.0 g/dL [facility] Alkaline Phosphatase 62 39 - 117 U/L [facility] 06/13/2024 10:4 7 AM EST 06/13/2024 1:31 PM EST us Jeanna Oleary MD LAB BLOOD ORDERABLES Final Result [facility] [address] [place] [address] [phone] * CT Lung Screening Low dose (05/21/2024 6:59 AM EST) Anatomical Region Laterality Modality Lung Computed Tomogra phy 05/21/2024 6:59 AM EST Narrative 05/21/2024 7:01 AM EST ? [facility] ?[address] ?[place] [address] ? CT Scan Report ? Signed ? Patient: Jaime Hamlin ?MR#: [id number] ?? 263 ? : 1955 ?Acct:[id number] ? Age/Sex: 68 / M ?ADM Date: 05/20/24 ? Loc: HO.CT ? Attending Dr: Mercy Youssef PA-C ? Ordering Physician: Mercy Youssef PA-C ?? Date of Service: 05/20/24 ?? Procedure(s): CT lung screening ?? Accession Number(s): [id number] ? cc: Jeanna Oleary MD; Mercy Youssef PA-C ? Report Number: ?? [id number]: Total DLP = ?? 76.00 mGy-cm ? [...] in OV> ? 05/21/24 0700 ? DD/ 8 ? TD/TT: 05/21/24658 ? Cyber Security Systems Engineer: ? Procedure Note Tracey, Cassy - 05/21/[address] [place] [address] [address] Scan Report Signed Patient: Jaime Hamlin JMR#: [id number] 263 : 5Acct:[id number] Age/Sex: 68 / MADM Date: 05/20/24 Loc: HO.CT Attending Dr: Mercy Youssef PA-C Ordering Physician: Mercy Youssef PA-C Date of Service: 05/20/24 Procedure(s): CT lung screening Accession Number(s): [id number] cc: Jeanna Oleary MD; Mercy Youssef PA-C Report Number: [id number]: Total DLP = 76.00 mGy-cm CLINICAL HISTORY: [...] OV> 05/21/24 0700 DD/ 8 TD/TT: 05/21/24658 Cyber Security Systems Engineer: [facility] External Provider IMG CT PROCEDURES Edited Result - Final * (ABNORMAL) Lipid Panel, Standard (11/26/2023 8:45 AM EDT) Triglycerides 155(H) <150 mg/dL [facility] Comment:Desirable Triglyceri de: less than 150 mg/dLBorderline High Triglyceride 150-199 mg/dLHigh Triglyceride: 200-499 mg/dLVery High Triglyceride: greater than or equal to 5OO mg/dL Cholesterol 99 <200 mg/dL [facility] Comment:Desirable Cholestero l: less than 200 mg/dLBorderline High Cholesterol: 200-239 mg/dLHigh Cholesterol: greater than 239 mg/dL LDL Cholesterol Calculated 32 <100 mg/dL [facility] Comment:Desirable LDL: less than 100 mg/dLNear Optimal/Above Optimal LDL: 110- 129 mg/dLBorderline High LDL: 130-159 mg/dLHigh LDL: 160-189 mg/dLVery High LDL: greater than or equal to 190 mg/dL HDL Cholesterol 36(L) >40 mg/dL [facility] Comment:Desirable HDL: great er than 40 mg/dL Note: This HDL assay may give artificially low results in patients with liver disease. 11/26/2023 8:45 AM EDT 11/26/2023 8:45 AM EDT us Generic External Data Provider LAB BLOOD ORDERAB LES Final Result [facility] [address] [place] [phone] * (ABNORMAL) Colonoscopy (02/15/2023) Anatomical Region Laterality Modality Endoscopy Narrative 02/15/2023 Diverticulosis of sigmoid colon. Internal hemorrhoids. Done by Dr Kirby Lomax. Repeat Colonoscopy in 5 years. us Jeanna Oleary MD ENDOSCOPY PROCEDURE ORDERAB LES Final Result * Diabetes Eye Exam (02/07/2023) Eye Exam Normal Normal Narrative PrabhakarМария garcia [place] - 02/07/2023 No diabetic retinopathy us Jeanna Oleary MD HEALTH MAINTENANCE Final Re sult from Last 3 Months or Most Recently Relevant to Health Maintenance Insurance [facility] MEDICARE ADVANTAGE HMO Care Teams Ct Technician Relationship Specialty Start Date End Date Jeanna Oleary MD [address] [place] [phone] PCP - General Internal Medicine 12/19/16 Estefanía Cervantes, DayneD [address] [place] [phone] Pharmacist Internal Medicine 06/03/24
--- OUTSIDE RECORDS SUMMARY | 2024-08-14 14:39 | XMS_ITS | Encounter Summary ---
Author Organization [employer] Address [address] [facility] 7t [place] [address] Care Team Providers Care Supervisor Ditching Name Role Phone Jeanna Oleary MD Primary Care Provider [phone] Estefanía Cervantes PharmD Unavailable [phone] Reason for Visit * Reason Onset Date Comments Referral 11/13/2023 Encounter Details Date Type Department Care Team (Late st Contact Info) Description 11/13/2023 Telephone [facility] MEDICINE [address] [place] [address] Jeanna Oleary MD [address] [place] [address] Referral Social History Tobacco Use Types Packs/Day [...] 11/14/2023 10:06 AM EDT Referral faxed to [facility] as requested. * Telephone Encounter - eGne Kumari - 11/13/2023 2:59 PM EDT Tc from pt requesting for Podiatry [facility] [place] [facility] to location being easier. documented in this encounter Plan of Treatment Upcoming Encounters Date Type Department Care Team (Late st Contact Info) Description 01/26/2025 9:00 AM EDT Telemedicine [facility] CHC MED & PEDS [address] [place] [address] Estefanía Cervantes, PharmD 230 [place] [address] documented as of this encounter Visit Diagnoses Not on filedocumented in this encounter Additional Health Concerns Assessment Noted Time PHQ-9 Depression Total Score: 0 11/24/19 23 10:27 AM EDT documented as of this encounter Care Teams Supervisor Ditching Relationship Specialty Start Date End Date Jeanna Oleary MD [address] [place] [address] PCP - General Internal Medicine 12/19/16 Estefanía Cervantes, Gianni [address] [place] [address] Pharmacist Internal Medicine 06/03/24 documented as of this encounter
--- OUTSIDE RECORDS SUMMARY | 2024-08-14 14:39 | XMS_ITS | Encounter Summary ---
Author Organization [employer] Address [address] [place] [address] 7 [place] [address] Care Team Providers Care Wholesale Loan Processor Name Role Phone Jeanna Oleary MD Primary Care Provider [phone] Estefanía Cervantes PharmD Unavailable [phone] Reason for Referral * Consultation (Routine) - Closed Specialty Diagnoses / Procedures Referred By Contac t Referred To Contact Endocrinology Diagnoses Hypogonadism male Jeanna Oleary MD [address] [place] [address] Phone: tel: fax: [facility] Endocrinology [address] [place] [address] Phone: tel: fax: Referral ID Status Reason Start Date Expiration Date V isits Requested Visits Authorized [id number] Closed Specialty Services Required 10/11/2023 10/10/2024 1 1 Encounter Details Date Type Department Care Team (Late st Contact Info) Description 10/11/2023 Orders Only [facility] CHC MED & PEDS [address] [place] [address] Jeanna Oleary MD [address] [place] [address] Hypogonadism male (Primary Dx) Social History Tobacco [...] Info) Description 01/26/2025 9:00 AM EDT Telemedicine [facility] MED & PEDS [address] [place] [address] Estefanía Cervantes, PharmD [address] [place] [address] Scheduled Referrals Name Type Priority Associated Diagnoses [...] Testosterone, Total 94(A) 250 - 1100 ng/dL [facility] Comment:Men with clinically significant hypogonadalsymptoms and testosterone values repeatedly inthe range of the 200-300 ng/dL or less, maybenefit from testosterone treatment afteradequate risk and benefits counseling.For additional information, please refer tohttp://education.[email or web address]/faq/[email or web address](This link is being provided for informational/educational purposes only.)This test was developed and its analytical performancecharacteristics have been determined by [employer] [place], [place]. It hasnot been cleared or approved by the U.S. Food and DrugAdministration. This assay has been validated pursuantto the CLIA regulations and is used for clinicalpurposes.THIS TEST WAS PERFORMED AT:[employer]/[facility] [place] [address]NMILCKJLEONORA MCNEIL MD,PHD Blood Venous blood specimen / Unknown 10/16/2023 2:12 PM EDT 10/16/2023 5:54 PM EDT Jeanna Oleary MD LAB BLOOD ORDERABLES Final Result [facility] [address] [place] [address] [phone] documented in this encounter Visit Diagnoses Diagnosis Hypogonadism male- Primary Other testicular hypofunction documented in this encounter Additional Health Concerns Assessment Noted Time PHQ-9 Depression Total Score: 0 11/24/19 23 10:27 AM EDT documented as of this encounter Care Teams Wholesale Loan Processor Relationship Specialty Start Date End Date Jeanna Oleary MD [address] [place] [address] PCP - General Internal Medicine 12/19/16 Estefanía Cervantes PharmD [address] [place] [address] Pharmacist Internal Medicine 06/03/24 documented as of this encounter
--- OUTSIDE RECORDS SUMMARY | 2024-08-14 14:39 | XMS_ITS | Encounter Summary ---
Author Organization [employer] Address [address] [facility] 7 [place] [address] Care Team Providers Care Retail Shift Manager Name Role Phone Jeanna Oleary MD Primary Care Provider [phone] Estefanía Cervantes PharmD Unavailable [phone] Encounter Details Date Type Department Care Team (Late st Contact Info) Description 01/29/2024 Orders Only [facility] CHC MED & PEDS [address] [place], [place] [phone] Jeanna Oleary MD [address] [place] [address] Class 3 severe obesity due to excess calories without serious comorbidity with body mass index (BMI) of 40.0 to 44.9 in adult (CMS/[facility]) (Primary Dx); Type 2 diabetes mellitus with hyperglycemia, with long-term current use of insulin ([facility]) Social History Tobacco Use Types [...] Info) Description 01/26/2025 9:00 AM EDT Telemedicine [facility] MED & PEDS [address] [place], [place] [phone] Estefanía Cervantes PharmD [address] [place] [address] documented as of this encounter Visit Diagnoses Diagnosis Class 3 severe obesity due to excess calories without serious comorbidity with body mass index (BMI) of 40.0 to 44.9 in adult ([facility])- Primary Type 2 diabetes mellitus with hyperglycemia, with long-term current use of insulin ([facility]) documented in this encounter Additional Health Concerns Assessment Noted Time PHQ-9 Depression Total Score: 0 11/24/19 23 10:27 AM EDT documented as of this encounter Care Teams Retail Shift Manager Relationship Specialty Start Date End Date Jeanna Oleary MD [address] [place], [place] [phone] PCP - General Internal Medicine 12/19/16 Estefanía Cervantes PharmD [address] [place], [place] [phone] Pharmacist Internal Medicine 06/03/24 documented as of this encounter
--- OUTSIDE RECORDS SUMMARY | 2024-08-14 14:39 | XMS_ITS ---
Author Organization [facility] kumar Alda Address [address] [place] [address] Care Team Providers Care Record Clerk Name Role Phone Richard Oleary MD Primary Care Provider Jas Sommer Unavailable [phone] Allergies No Known Allergies REASON FOR VISIT [...] Type 2 diabetes mellitus with peripheral angiopathy (993914463) Type 2 diabetes mellitus with diabetic peripheral angiopathy without gangrene (E11.51) Active confirmed Q7(A), Q8(2B), Q9(1B,2C) Problem Acquired hammer toe of right foot (8398831091916 105) Other hammer toe(s) (acquired), right foot (M20.41) Active confirmed Problem Acquired hammer toe of left foot (4544637044990 103) Other hammer toe(s) (acquired), left foot (M20.42) Active confirmed Vital Signs Height 5 ft 10 in in 02/22/2024 Weight 243 lbs 02/22/2024 BMI 34.86 kg/m2 02/22/2024 Blood pressure systolic 128 mm Hg 02/22/20 24 Blood pressure diastolic 80 mm Hg 024 Encounters Encounter Location Date Provider Diagnosis [facility] [address] [address] 02/22/2024 Jas Ivan Pain in left foot [...] Provider Name:Jas Love , 02/20/2025 09:00:00 AM, [address] [place] [address], [phone], Progress Notes * Jaime HAMLINDOB:[birth year] (68 yo M)Acc No.[id number]:02/22/2024 Progress Notes Patient:?Jaime HAMLIN Provider:?Jas Love DPM :1955???Age:68 Y???Sex:Male Giovanni e:02/22/2024 Address:[address] [place], [place] [id number] Pcp:Richard Oleary MD Subjective: * Chief Complaints: [...] INSTRUCTIONS.pdf (DIABETIC FOOT CARE INSTRUCTIONS.pdf)?? * Procedure Codes:?07630 X-RAY EXAM OF LEFT FOOT 3V, Modifiers: [...] Provider:?Jas Love DPM Date:?2023 Generated for Mervat lowry/Darek/eTchris on:?08/14/2024 02:39 PM EDT History and Physical Notes * HPI (History [...] , (-) Charcot collapse/destruction noted at [facility] FOOTWEAR EVALUATION: worn, non-supportiv e, shoe gear properties exacerbate patient's foot/toe deformity [...]
--- OUTSIDE RECORDS SUMMARY | 2024-08-14 14:39 | XMS_ITS | Encounter Summary ---
Author Organization [employer] Address [address] [facility] 7t [place] [address] Care Team Providers Care Senior Electrical Project Manager Name Role Phone Jeanna Oleary MD Primary Care Provider [phone] Estefanía Cervantes PharmD Unavailable [phone] Encounter Details Date Type Department Care Team (Late st Contact Info) Description 06/16/2024 Orders Only [facility] CHC MED & PEDS [address] [place], [place] [phone] Jeanna Oleary MD [address] [place] [address] Social History Tobacco Use Types Packs/Day Years [...] [facility] MED & PEDS [address] [place] [address] Estefanía Cervantes, PharmD [address] [place] [address] documented as of this encounter Visit Diagnoses Not on filedocumented in this encounter Additional Health Concerns Assessment Noted Time PHQ-9 Depression Total Score: 3 06/16/19 25 10:59 AM EST documented as of this encounter Care Teams Senior Electrical Project Manager Relationship Specialty Start Date End Date Jeanna Oleary MD [address] [place] [address] PCP - General Internal Medicine 12/19/16 Estefanía Cervantes, PharmD [address] [place] [address] Pharmacist Internal Medicine 06/03/24 documented as of this encounter
--- OUTSIDE RECORDS SUMMARY | 2024-08-14 14:39 | XMS_ITS | Encounter Summary ---
Author Organization [employer] Address [address] [facility] 7t [place] [address] Care Team Providers Care Timber Inspector Name Role Phone Jeanna Oleary MD Primary Care Provider [phone] Estefanía Cervantes PharmD Unavailable [phone] Encounter Details Date Type Department Care Team (Late st Contact Info) Description 09/20/2023 Orders Only [facility] CHC MED & PEDS [address] [place], [place] [phone] Jeanna Oleary MD 505 [place] [address] Type 2 diabetes mellitus with hyperglycemia, with long-term current use of insulin ([facility]) (Primary Dx) Social History Tobacco [...] Info) Description 01/26/2025 9:00 AM EDT Telemedicine [facility] MED & PEDS [address] [place] [address] Estefanía Cervantes PharmD [address] [place] [address] documented as of this encounter Visit Diagnoses Diagnosis Type 2 diabetes mellitus with hyperglycemia, with long-term current use of insulin ([facility])- Primary documented in this encounter Additional Health Concerns Assessment Noted Time PHQ-9 Depression Total Score: 0 11/24/19 23 10:27 AM EDT documented as of this encounter Care Teams Timber Inspector Relationship Specialty Start Date End Date Jeanna Oleary MD [address] [place] [address] PCP - General Internal Medicine 12/19/16 Estefanía Cervantes, DayneD [address] [place], [place] [phone] Pharmacist Internal Medicine 06/03/24 documented as of this encounter
--- OUTSIDE RECORDS SUMMARY | 2024-08-14 14:39 | XMS_ITS | Clinical Summary ---
Author Organization [facility] Address [address] [place] [address] Phone Care Team Providers Care Support Clerk Name Role Phone Jeanna Oleary MD Primary Care Provider [phone] Allergies Active Allergy Reactions Criticality Noted Date [...] Screening: Annual FOBT 12/26/2023 12/25/2022 Influenza Vaccine (Season Ended) 2025 Hepatitis B Vaccine Aged Out 03/04/2018, 12/31/2017, 11/30/2017 No longer eligible based on patient's age to complete this topic Pneumococcal Vaccine: 50+ Years Completed 01/24/2021, 01/19/2020, [...] Most Recently Relevant to Health Maintenance Insurance [facility] Medicare [facility] Medicare Care Teams Support Clerk Relationship Specialty Start Date End Date Jeanna Oleary MD PCP - General 05/17/20
--- OUTSIDE RECORDS SUMMARY | 2024-08-14 14:39 | XMS_ITS | Encounter Summary ---
Author Organization [employer] Address [address] [place] [address] 7 [place] [address] Care Team Providers Care Mailmaster Name Role Phone Jeanna Oleary MD Primary Care Provider [phone] Estefanía Cervantes PharmD Unavailable [phone] Reason for Referral * Consultation (Routine) - Closed Specialty Diagnoses / Procedures Referred By Contac t Referred To Contact Cardiology Diagnoses Atrial fibrillation with rapid ventricular response (CMS/HCC) Jeanna Oleary MD [address] [place] [address] Phone: tel: fax: Erasmo Daily MD [address] [place] [address] Phone: tel: fax: Referral ID Status Reason Start Date Expiration Date V isits Requested Visits Authorized [id number] Closed Specialty Services Required 03/20/2024 03/20/2025 1 1 Encounter Details Date Type Department Care Team (Late st Contact Info) Description 03/20/2024 Orders Only [facility] CHC MED & PEDS [address] [place], [place] [phone] Jeanna Oleary MD [address] [place], [place] Atrial fibrillation with rapid ventricular response [...] Info) Description 01/26/2025 9:00 AM EDT Telemedicine [facility] MED & PEDS [address] [place] [address] Estefanía Cervantes, PharmD [address] [place] [address] Scheduled Referrals Name Type Priority Associated Diagnoses [...] documented as of this encounter Care Teams Mailmaster Relationship Specialty Start Date End Date Jeanna Oleary MD [address] [place] [address] PCP - General Internal Medicine 12/19/16 Estefanía Cervantes PharmD [address] [place] [address] Pharmacist Internal Medicine 06/03/24 documented as of this encounter
--- OUTSIDE RECORDS SUMMARY | 2024-08-14 14:39 | XMS_ITS | Encounter Summary ---
Author Organization [employer] Address [address] [facility] 7t [place] [address] Care Team Providers Care Drafter Engineering Name Role Phone Jeanna lOeary MD Primary Care Provider [phone] Estefanía Cervantes PharmD Unavailable [phone] Encounter Details Date Type Department Care Team (Late st Contact Info) Description 11/07/2023 Orders Only [facility] CHC MED & PEDS [address] [place], [place] [phone] Jeanna Oleary MD [address] [place] [address] Type 2 diabetes mellitus with hyperglycemia, with long-term current use of insulin ([facility]) (Primary Dx) Social History Tobacco Use Types [...] 01/26/2025 9:00 AM EDT Telemedicine [facility] MED & PEDS [address] [place] [address] Estefanía Cervantes PharmD [address] [place] [address] documented as of this encounter Visit Diagnoses Diagnosis Type 2 diabetes mellitus with hyperglycemia, with long-term current use of insulin ([facility])- Primary documented in this encounter Additional Health Concerns Assessment Noted Time PHQ-9 Depression Total Score: 0 11/24/19 23 10:27 AM EDT documented as of this encounter Care Teams Drafter Engineering Relationship Specialty Start Date End Date Jeanna Oleary MD [address] [place] [address] PCP - General Internal Medicine 12/19/16 Estefanía Cervantes, DayneD [address] [place], [place] [phone] Pharmacist Internal Medicine 06/03/24 documented as of this encounter
--- OUTSIDE RECORDS SUMMARY | 2024-08-14 14:39 | XMS_ITS ---
Author Organization [facility] Address [address] [place] [address] Care Team Providers Care Cement Finishing Supervisor Name Role Phone Richard Oleary MD Primary Care Provider Jas Sommer [phone] REASON FOR VISIT GROUND INSTRUCTOR [employer]ED PPWK Entered Encounters Encounter Location Date Provider Diagnosis [facility] [address] [place] [address] 11/15/2023 Jas Love Plan Of Treatment Next Appt Details Provider Name:Jas Love , 02/20/2025 09:00:00 AM, [address] [place], [address], Progress Notes * Jaime HAMLINDOB:[birth year] (68 yo M)Acc No.[id number]:11/15/2023 Patient:?Jaime [place] :1955???Age:68 Y???Sex:Male Address:[address] [facility] [place], [address] * true * Date:? Generated for Printi ng/Fajordang/eTransmitting on:?08/14/2024 02:39 PM EDT
--- OUTSIDE RECORDS SUMMARY | 2024-08-14 14:39 | XMS_ITS | Encounter Summary ---
Author Organization [employer] Address [address] [facility] 7 [place] [address] Care Team Providers Care Resistor Tester Name Role Phone Jeanna Oleary MD Primary Care Provider [phone] Estefanía Cervantes PharmD Unavailable [phone] Encounter Details Date Type Department Care Team (Late st Contact Info) Description 12/04/2023 Orders Only [facility] CHC MED & PEDS [address] [place], [place] [phone] Jeanna Oleary MD 505 [place] [address] Class 3 severe obesity due to excess calories without serious comorbidity with body mass index (BMI) of 40.0 to 44.9 in adult (CMS/[facility]) (Primary Dx); Type 2 diabetes mellitus with hyperglycemia, with long-term current use of insulin ([facility]) Social History Tobacco Use Types Packs/Day Years [...] Info) Description 01/26/2025 9:00 AM EDT Telemedicine [facility] MED & PEDS [address] [place], [place] [phone] Estefanía Cervantes PharmD 230 [place] [address] documented as of this encounter Visit Diagnoses Diagnosis Class 3 severe obesity due to excess calories without serious comorbidity with body mass index (BMI) of 40.0 to 44.9 in adult ([facility])- Primary Type 2 diabetes mellitus with hyperglycemia, with long-term current use of insulin ([facility]) documented in this encounter Additional Health Concerns Assessment Noted Time PHQ-9 Depression Total Score: 0 11/24/19 23 10:27 AM EDT documented as of this encounter Care Teams Resistor Tester Relationship Specialty Start Date End Date Jeanna Oleary MD [address] [place], [place] [phone] PCP - General Internal Medicine 12/19/16 Estefanía Cervantes PharmD [address] [place], [place] [phone] Pharmacist Internal Medicine 06/03/24 documented as of this encounter
--- OUTSIDE RECORDS SUMMARY | 2024-08-14 14:40 | XMS_ITS | Encounter Summary ---
Author Organization [employer] Address [address] [place] [address] 7 [place] [address] Care Team Providers Care Cadd Operator Name Role Phone Jeanna Oleary MD Primary Care Provider [phone] Estefanía Cervantes PharmD Unavailable [phone] Reason for Visit * Reason Comments Med Refill Encounter Details Date Type Department Care Team (Late Contact Info) Description 07/04/2022 Refill [facility] MEDICINE [address] [place], [place] [phone] Jeanna Oleary MD [address] [place], [place] [phone] Mixed simple and mucopurulent chronic bronchitis (CMS/HCC) [...] Encounters Date Type Department Care Team (Late Contact Info) Description 01/26/2025 9:00 AM EDT Telemedicine [facility] CHC MED & PEDS 505 [place], [place] [phone] Estefanía Cervantes, PharmD [address] [place], [place] [phone] documented as of this encounter Visit Diagnoses Diagnosis Mixed simple and mucopurulent chronic bronchitis (CMS/HCC)- Primary Other chronic bronchitis Type 2 diabetes mellitus with hyperglycemia, with long-term current use of insulin (CMS/HCC) documented in this encounter Care Teams Cadd Operator Relationship Specialty Start Date End Date Jeanna Oleary MD [address] [place] [address] PCP - General Internal Medicine 12/19/16 Estefanía Cervantes PharmD [address] [place] [address] Pharmacist Internal Medicine 06/03/24 documented as of this encounter
--- OUTSIDE RECORDS SUMMARY | 2024-08-14 14:40 | XMS_ITS ---
Author Organization [facility] Address [address] [place] [address] Care Team Providers Care Cnc Machinist Name Role Phone Richard Oleary MD Primary Care Provider Jas Sommer Unavailable [phone] Encounters Encounter Location Date Provider Diagnosis [address] [address] 02/15/2024 Jas Love Plan Of Treatment Next Appt Details Provider Name:Jas Love , 02/20/2025 09:00:00 AM, [address] [place], [address], Progress Notes * Jaime HAMLNIDOB:[birth year] (69 yo M)Acc No.[id number]:02/15/2024 Progress Notes Patient:?Jaime HAMLIN Provider:?Jas Love DPM :1955???Age:68 Y???Sex:Male Giovanni e:02/15/2024 Address:[address] [place] [address] [facility] [phone] Pcp:Richard Oleary MD Subjective: * Chief Complaints: [...] Love DPM Date:?2023 Generated for Mervat lowry/Darek/Nicky on:?08/14/2024 02:39 PM EDT
--- OUTSIDE RECORDS SUMMARY | 2024-08-14 14:40 | XMS_ITS | Patient Health Record ---
Author Organization [facility] [place] Address [address] [facility] krishna [facility] [place] [address] Care Team Providers Care Director Of Corporate Sponsorships Name Role Phone Richard Oleary MD Primary Care Provider Jas Sommer Unavailable [phone] Allergies No Known Allergies Results Component Value [...] Problem Acquired hammer toe of right foot (3860237492036 105) Other hammer toe(s) (acquired), right foot (M20.41) Active confirmed Problem Acquired hammer toe of left foot (9956407526837 103) Other hammer toe(s) (acquired), left foot (M20.42) Active confirmed Problem Type 2 diabetes mellitus with peripheral angiopathy (088969990) Type 2 diabetes mellitus with diabetic peripheral angiopathy without gangrene (E11.51) Active confirmed Q7(A), Q8(2B), Q9(1B,2C) Vital Signs Blood pressure diastolic 80 mm Hg 02/22/2024 Height 5 ft 10 in in 02/22/2024 Blood pressure systolic 128 mm Hg 02/22/2024 Weight 243 lbs 02/22/2024 BMI 34.86 kg/m2 02/22/2024 Encounters Encounter Location Date Provider Diagnosis [facility] [address] [address] 02/22/2024 Jas Love Pain in left foot M79.672 ; Pain in left ankle and joints of left foot M25.572 ; Bursitis of intermetatarsal bursa of left foot M77.52 ; Metatarsalgia, left foot M77.42 ; Type 2 diabetes mellitus with diabetic peripheral angiopathy without gangrene E11.51 ; Other hammer toe(s) (acquired), right foot M20.41 and Other hammer toe(s) (acquired), left foot M20.42 [facility] [address] [address] 11/15/2023 Jas Love Assessments Encounter Date Diagnosis [...] Name:Jas Sutton Ivan , 02/20/2025 09:00:00 AM, [address] [place] [address], [id number], Insurance Providers Payer Name Payer Address Payer Phone Subscriber Number Group Number Insured Name Patient Relationship to Insured Coverage Start Date Coverage End Date Medicare National Govt Svcs Inc [address] [place] [address] [phone] [id number] Jaime Hamlin Self - patient is the insured 7 [employer] [address] [place] [address] [phone] [id number] Jaime Hamlin Self - patient is the insured Medical (General) History Medical History History ICD Code covid-19 Diabetic Heart disease High blood pressure Kidney disease Reflux ( GERD) Stomach ulcer Surgical History Surgery Date(Month/Year) Gall bladder removal
[2024-08-15 04:23] LABS: HBS Num1 3.11 mIU/mL (0-7.99); HBc Num1 0.09 S/CO (0.00-0.79); HBsAGNum1 0.32 S/CO (0.00-0.99); Hepatitis B Core Antibody Nonreactive (Nonreactive); Hepatitis B Surface Antigen Negative (Negative); ~Hepatitis B Surface Antibody NONREACTIVE (Nonreactive); ~Hepatitis C Antibody Nonreactive (Nonreactive)
[2024-08-19 01:54] LABS: Testosterone, Total 316 ng/dL (250-1100)
[2024-08-19 08:06] LABS: Hepatitis A Antibody IgM 0.14 Index (0-0.79); ~Hepatitis A Antibody IgM Nonreactive (Nonreactive)
== END 2024-08-14 11:58 | disposition home or self-care (01) ==
LOC: HO.HMGCLDS 11:57
PROVIDERS: PCP Internal Medicine; Referring Provider Urology; Visit Provider Internal Medicine
DX: R74.01 Elevation of levels of liver transaminase levels (principal); E29.1 Testicular hypofunction
CPT/HCPCS: 36415; 84403; 86704; 86706; 86709; 86803; 87340

== ENCOUNTER 2024-08-20 08:42 | Outpatient (REF) | payer MEDICARE, SELFPAY ==
--- NOTE | ~2024-08-20 | US_ITS ---
EXAMINATION: US ABDOMEN LIMITED WITH LIVER ELASTOGRAPHY HISTORY: HEPATOMEGALY TECHNIQUE: Real-time grayscale ultrasound imaging of the right upper quadrant was performed and images were reviewed. COMPARISON: Comparison is made with the prior examination dated 07/10/2024. FINDINGS: Liver: The right lobe of the liver measures 18.7 cm in size. The left lobe of the liver measures 9.0 cm in size. The liver demonstrates coarsened echotexture with a nodular contour, suggestive of cirrhosis. No focal mass or intrahepatic biliary ductal dilatation is identified. There is normal hepatopedal flow in the portal vein. Ultrasound elastography of the liver was performed with 10 separate measurements of the liver parenchyma with the patient in the supine position. Measurements were obtained approximately 2 cm below Abhi's capsule and perpendicular to the capsule. Images are of satisfactory quality. The median shear wave velocity is 1.40 m/s. The interquartile range/median (IQR/median) is 0.05. Gallbladder and biliary tree: The gallbladder is surgically absent. The common bile duct is measures 10 mm in diameter. Right Kidney: The right kidney measures 10.5 cm in length and demonstrates a 4 x 4 by 6 mm upper pole cyst and a 10 x 10 x 12 mm interpolar cyst. The right kidney is otherwise unremarkable, without evidence of solid masses, hydronephrosis, or calculi. Pancreas: The pancreatic head, neck, and body are unremarkable. The pancreatic tail is obscured by bowel gas. Abdominal aorta and inferior vena cava: The visualized portions of the abdominal aorta and inferior vena cava are normal in caliber. There is no free fluid in the right upper quadrant. US/US abdomen stevenson w elastography IMPRESSION: Hepatomegaly and findings suggestive of hepatic cirrhosis. The median shear wave velocity in the liver is 1.40 m/s, corresponding to a median liver stiffness of 6.06 kPa. The IQR/median value is 0.05. This is indicative of a quality data set. Findings are indicative of a low elastography value which rules out advanced chronic liver disease in asymptomatic patients. REFERENCE: Society of Radiologists in Ultrasound Liver Stiffness Thresholds (2019): LIVER STIFFNESS THRESHOLDS: *Shear wave velocity less than 1.3 m/s (Liver Stiffness equal or less than 5 kPa): High probability of being normal. *Shear wave velocity less than 1.7 m/s (Liver Stiffness less than 9 kPa): In the absence of other known clinical signs, rules out compensated advanced chronic liver disease. *Shear wave velocity between 1.7-2.1 m/s (Liver Stiffness 9-13 kPa): Suggestive of compensated advanced chronic liver disease but need further test for confirmation. *Shear wave velocity between 2.1-2.4 m/s (Liver Stiffness 13-17 kPa): Rules in compensated advanced chronic liver disease. *Shear wave velocity greater than 2.4 m/s (Liver Stiffness over 17 kPa): Suggestive of clinically significant portal hypertension. QUALITY OF DATA SET: *IQR/Median value equal or less than 0.15 implies a quality data set. *IQR/Median value over 0.15 implies a poor quality data set. SIGNIFICANT CHANGE FROM PRIOR EXAM: Significant change if liver stiffness measurement is 10% or greater from prior exam. OTHER CONSIDERATIONS: The stage of liver fibrosis may be overestimated in the setting of acute hepatitis, liver inflammation, elevated liver function tests, hepatic vascular congestion, obstructive cholestasis, non-fasting state, and infiltrative diseases such as amyloidosis and lymphoma. In some patients with NAFLD, the liver stiffness thresholds for compensated advanced chronic liver disease may be lower. In causes other than viral hepatitis and NAFLD, liver stiffness thresholds are not well established. Electronically signed by: Nigel Gustafson MD 08/20/2024 10:05 AM EDT
--- OUTSIDE RECORDS SUMMARY | 2024-08-20 09:04 | XMS_ITS | Encounter Summary ---
Author Organization [employer] Address [address] [facility] 7 [place] [address] Care Team Providers Care Escalator Attendant Name Role Phone Jeanna Oleary MD Primary Care Provider [phone] Estefanía Cervantes PharmD Unavailable [phone] Encounter Details Date Type Department Care Team (Late st Contact Info) Description 01/29/2024 Orders Only [facility] MED & PEDS [address] [place], [place] [phone] Jeanna Oleary MD 505 [place] [address] Class 3 severe obesity due to excess calories without serious comorbidity with body mass index (BMI) of 40.0 to 44.9 in adult (CMS/[facility]) (Primary Dx); Type 2 diabetes mellitus with hyperglycemia, with long-term current use of insulin ([facility]) Social History Tobacco Use Types Packs/Day Years Used Date Smoking Tobacco: Former Cigarettes Smokeless Tobacco: Never Alcohol Use Standard Drinks/Week Comments Yes 3 (1 standard drink = 0.6 oz pur e alcohol) Depression Answer Date Recorded Patient Health Questionnaire-9 Score 0 11/23/2022 Housing Stability Answer Date Recorded What is your housing situation today? I have danielle mratines 02/21/[address] you li [...] Description 01/26/2025 9:00 AM EDT Telemedicine [facility] MED & PEDS 505 [place], [place] [phone] Estefanía Cervantes PharmD [address] [place] [address] documented as of this encounter Visit Diagnoses Diagnosis Class 3 severe obesity due to excess calories without serious comorbidity with body mass index (BMI) of 40.0 to 44.9 in adult- Primary Type 2 diabetes mellitus with hyperglycemia, with long-term current use of insulin ([facility]) documented in this encounter Additional Health Concerns Assessment Noted Time PHQ-9 Depression Total Score: 0 11/24/19 23 10:27 AM EDT documented as of this encounter Care Teams Escalator Attendant Relationship Specialty Start Date End Date Jeanna Oleary MD 505 [place], [place] [phone] PCP - General Internal Medicine 12/19/16 Estefanía Cervantes PharmD [address] [place], [place] [phone] Pharmacist Internal Medicine 06/03/24 documented as of this encounter
--- OUTSIDE RECORDS SUMMARY | 2024-08-20 09:04 | XMS_ITS | Encounter Summary ---
Author Organization [employer] Address [address] [facility] 7t [place] [address] Care Team Providers Care Assistant Kitchen Manager Name Role Phone Jeanna Oleary MD Primary Care Provider [phone] Estefanía Cervantes PharmD Unavailable [phone] Encounter Details Date Type Department Care Team (Late st Contact Info) Description 06/16/2024 Orders Only [facility] CHC MED & PEDS [address] [place], [place] [phone] Jeanna Oleary MD 505 [place] [address] Social History Tobacco Use Types Packs/Day Years [...] Info) Description 01/26/2025 9:00 AM EDT Telemedicine [facility] MED & PEDS [address] [place] [address] Estefanía Cervantes, PharmD 230 [place] [address] documented as of this encounter Visit Diagnoses Not on filedocumented in this encounter Additional Health Concerns Assessment Noted Time PHQ-9 Depression Total Score: 3 06/16/19 25 10:59 AM EST documented as of this encounter Care Teams Assistant Kitchen Manager Relationship Specialty Start Date End Date Jeanna Oleary MD 505 [place] [address] PCP - General Internal Medicine 12/19/16 Estefanía Cervantes, PharmD 230 [place] [address] Pharmacist Internal Medicine 06/03/24 documented as of this encounter
--- OUTSIDE RECORDS SUMMARY | 2024-08-20 09:04 | XMS_ITS | Encounter Summary ---
Author Organization [employer] Address 75 [facility] 7t [place] [address] Care Team Providers Care Cigar Bander Hand Name Role Phone Jeanna Oleary MD Primary Care Provider [phone] Estefanía Cervantes PharmD Unavailable [phone] Encounter Details Date Type Department Care Team (Late st Contact Info) Description 09/05/2023 Orders Only [facility] CHC MED & PEDS [address] [place], [place] [phone] Jeanna Oleary MD 505 [place] [address] Hyperkalemia (Primary Dx); Type 2 diabetes mellitus with hyperglycemia, with long-term current use of insulin ([facility]); Erectile disorder Social History Tobacco Use Types [...] Info) Description 01/26/2025 9:00 AM EDT Telemedicine [facility] MED & PEDS [address] [place] [address] Estefanía Cervantes PharmD 230 [place] [address] Scheduled Orders Name Type Priority Associated Diagnoses [...] Testosterone, Total 98(A) 250 - 1100 ng/dL [facility] Comment:Men with clinically significant hypogonadalsymptoms and testosterone values repeatedly inthe range of the 200-300 ng/dL or less, maybenefit from testosterone treatment afteradequate risk and benefits counseling.For additional information, please refer tohttp://education.[employer].Twiigg/faq/ZbhojQricvkovoucxNZCDNCWSZ325(This link is being provided for informational/educational purposes only.)This test was developed and its analytical performancecharacteristics have been determined by [place] It hasnot been cleared or approved by the U.S. Food and DrugAdministration. This assay has been validated pursuantto the CLIA regulations and is used for clinicalpurposes. Testosterone, Free 14.7(A) 35.0 - 155.0 pg/mL [facility] Comment:This test was develo ped and its analytical performancecharacteristics have been determined by [place]. It hasnot been cleared or approved by the U.S. Food and DrugAdministration. This assay has been validated pursuantto the CLIA regulations and is used for clinicalpurposes.THIS TEST WAS PERFORMED AT:[employer] [place] [address]UERCQCSLEONORA MCNEIL MD,PHD Blood Venous blood specimen / Unknown 10/03/2023 12:52 PM EDT 10/03/2023 4:32 PM EDT Jeanna Oleary MD LAB BLOOD ORDERABLES Final Result [facility] [address] [place] [address] [phone] documented in this encounter Visit Diagnoses Diagnosis Hyperkalemia- Primary Hyperpotassemia Type 2 diabetes mellitus with hyperglycemia, with long-term current use of insulin ([facility]) Erectile disorder documented in this encounter Additional Health Concerns Assessment Noted Time PHQ-9 Depression Total Score: 0 11/24/19 23 10:27 AM EDT documented as of this encounter Care Teams Cigar Bander Hand Relationship Specialty Start Date End Date Jeanna Oleary MD [address] [place] [address] PCP - General Internal Medicine 12/19/16 Estefanía Cervantes PharmD [address] [place] [address] Pharmacist Internal Medicine 06/03/24 documented as of this encounter
--- OUTSIDE RECORDS SUMMARY | 2024-08-20 09:04 | XMS_ITS | Encounter Summary ---
Author Organization [employer] Address [address] [place] [address] 7 [place] [address] Care Team Providers Care Linoleum Floor Installer Name Role Phone Jeanna Oleary MD Primary Care Provider [phone] Estefanía Cervantes PharmD Unavailable [phone] Reason for Referral * Consultation (Routine) - Closed Specialty Diagnoses / Procedures Referred By Contac t Referred To Contact Cardiology Diagnoses Atrial fibrillation with rapid ventricular response (CMS/HCC) Jeanna Oleary MD [address] [place] [address] Phone: tel: fax: Erasmo Daily MD [address] [place] [address] Phone: tel: fax: Referral ID Status Reason Start Date Expiration Date V isits Requested Visits Authorized [id number] Closed Specialty Services Required 03/20/2024 03/20/2025 1 1 Encounter Details Date Type Department Care Team (Late st Contact Info) Description 03/20/2024 Orders Only [facility] CHC MED & PEDS [address] [place], [place] [phone] Jeanna Oleary MD [address] [place], [place] Atrial fibrillation with rapid ventricular response [...] AM EDT Telemedicine [facility] MED & PEDS [address] [place] [address] Estefanía Cervantes, PharmD 230 [place] [address] Scheduled Referrals Name Type Priority Associated Diagnoses [...] documented as of this encounter Care Teams Linoleum Floor Installer Relationship Specialty Start Date End Date Jeanna Oleary MD 505 [place] [address] PCP - General Internal Medicine 12/19/16 Estefanía Cervantes PharmD [address] [place] [address] Pharmacist Internal Medicine 06/03/24 documented as of this encounter
--- OUTSIDE RECORDS SUMMARY | 2024-08-20 09:04 | XMS_ITS | Encounter Summary ---
Author Organization [employer] Address 75 [facility] 7t [place] [address] Care Team Providers Care Senior Merchandiser Name Role Phone Jeanna Oleary MD Primary Care Provider [phone] Estefanía Cervantes PharmD Unavailable [phone] Reason for Visit * Reason Comments Med Refill Encounter Details Date Type Department Care Team ([facility] st Contact Info) Description 09/14/2023 Refill [facility] CHC MED & PEDS 505 [place], [place] [phone] Jeanna Oleary MD 505 [place] [address] Type 2 diabetes mellitus without complications (CMS/HCC) [...] [facility] MED & PEDS [address] [place] [address] Estefanía Cervantes PharmD 230 [place] [address] documented as of this encounter Visit Diagnoses Diagnosis Type 2 diabetes mellitus without complications (CMS/HCC) documented in this encounter Additional Health Concerns Assessment Noted Time PHQ-9 Depression Total Score: 0 11/24/19 23 10:27 AM EDT documented as of this encounter Care Teams Senior Merchandiser Relationship Specialty Start Date End Date Jeanna Oleary MD 505 [place] [address] PCP - General Internal Medicine 12/19/16 Estefanía Cervantes PharmD [address] [place] [address] Pharmacist Internal Medicine 06/03/24 documented as of this encounter
--- OUTSIDE RECORDS SUMMARY | 2024-08-20 09:04 | XMS_ITS | Encounter Summary ---
Author Organization [employer] Address [address] [place] [address] 7 [place] [address] Care Team Providers Care Breaker Layer Name Role Phone Jeanna Oleary MD Primary Care Provider [phone] Estefanía Cervantes PharmD Unavailable [phone] Reason for Referral * Consultation (Routine) - Closed Specialty Diagnoses / Procedures Referred By Contac t Referred To Contact Endocrinology Diagnoses Hypogonadism male Jeanna Oleary MD 505 [place] [address] Phone: tel: fax: [facility]ocr[facility] [address] [place] [address] Phone: tel: fax: Referral ID Status Reason Start Date Expiration Date V isits Requested Visits Authorized [id number] Closed Specialty Services Required 10/11/2023 10/10/2024 1 1 Encounter Details Date Type Department Care Team (Late st Contact Info) Description 10/11/2023 Orders Only [facility] CHC MED & PEDS [address] [place] [address] Jeanna Oleary MD 505 [place] [address] Hypogonadism male (Primary Dx) Social History Tobacco [...] Info) Description 01/26/2025 9:00 AM EDT Telemedicine [facility] MED & PEDS [address] [place] [address] Estefanía Cervantes, PharmD 230 [place] [address] Scheduled Referrals Name Type Priority Associated Diagnoses [...] Testosterone, Total 94(A) 250 - 1100 ng/dL [facility] Comment:Men with clinically significant hypogonadalsymptoms and testosterone values repeatedly inthe range of the 200-300 ng/dL or less, maybenefit from testosterone treatment afteradequate risk and benefits counseling.For additional information, please refer tohttp://education.[employer].Biographicon/faq/WzkbtRxzjtxkihnwtDGCSWRORB690(This link is being provided for informational/educational purposes only.)This test was developed and its analytical performancecharacteristics have been determined by [employer] [place], [place]. It hasnot been cleared or approved by the U.S. Food and DrugAdministration. This assay has been validated pursuantto the CLIA regulations and is used for clinicalpurposes.THIS TEST WAS PERFORMED AT:[employer]/[facility] [place] [address]ANGDTSBLEONORA MCNEIL MD,PHD Blood Venous blood specimen / Unknown 10/16/2023 2:12 PM EDT 10/16/2023 5:54 PM EDT Jeanna Oleary MD LAB BLOOD ORDERABLES Final Result [facility] [address] [place] [address] [phone] documented in this encounter Visit Diagnoses Diagnosis Hypogonadism male- Primary Other testicular hypofunction documented in this encounter Additional Health Concerns Assessment Noted Time PHQ-9 Depression Total Score: 0 11/24/19 23 10:27 AM EDT documented as of this encounter Care Teams Breaker Layer Relationship Specialty Start Date End Date Jeanna Oleary MD [address] [place] [address] PCP - General Internal Medicine 12/19/16 Estefanía Cervantes PharmD [address] [place] [address] Pharmacist Internal Medicine 06/03/24 documented as of this encounter
--- OUTSIDE RECORDS SUMMARY | 2024-08-20 09:04 | XMS_ITS ---
Author Organization [facility] Address [address] [place] [address] Care Team Providers Care Shop Helper Name Role Phone Richard Oleary MD Primary Care Provider Jas Sommer [phone] REASON FOR VISIT CASINO ATTENDANT PPWK Entered Encounters Encounter Location Date Provider Diagnosis [address] [address] 11/15/2023 Jas Love Plan Of Treatment Next Appt Details Provider Name:Jas Love , 02/20/2025 09:00:00 AM, [address] [place], [address], Progress Notes * Jaime HAMLINDOB:[birth year] (68 yo M)Acc No.[id number]:11/15/2023 Patient:?Jaime Hamlin :1955???Age:68 Y???Sex:Male Address:[address] [facility] [place], [address] * true * Date:? Generated for Printi ng/Faxing/eTransmitting on:?08/20/2024 09:04 AM EDT
--- OUTSIDE RECORDS SUMMARY | 2024-08-20 09:04 | XMS_ITS | Encounter Summary ---
Author Organization [employer] Address [address] [facility] 7t [place] [address] Care Team Providers Care Pony Edger Name Role Phone Jeanna Oleary MD Primary Care Provider [phone] Estefanía Cervantes PharmD Unavailable [phone] Encounter Details Date Type Department Care Team (Late st Contact Info) Description 01/01/2024 Orders Only [facility] CHC MED & PEDS 505 [place], [place] [phone] Jeanna Oleary MD [address] [place] [address] Type 2 diabetes mellitus with hyperglycemia, with long-term current use of insulin ([facility]) (Primary Dx) Social History Tobacco Use Types [...] [facility] [address] [place] [address] Estefanía Cervantes PharmD [address] [place] [address] documented as of this encounter Visit Diagnoses Diagnosis Type 2 diabetes mellitus with hyperglycemia, with long-term current use of insulin ([facility])- Primary documented in this encounter Additional Health Concerns Assessment Noted Time PHQ-9 Depression Total Score: 0 11/24/19 23 10:27 AM EDT documented as of this encounter Care Teams Pony Edger Relationship Specialty Start Date End Date Jeanna Oleary MD [address] [place] [address] PCP - General Internal Medicine 12/19/16 Estefanía Cervantes, DayneD [address] [place], [place] [phone] Pharmacist Internal Medicine 06/03/24 documented as of this encounter
--- OUTSIDE RECORDS SUMMARY | 2024-08-20 09:04 | XMS_ITS | Encounter Summary ---
Author Organization [employer] Address 75 [facility] 7 [place] [address] Care Team Providers Care Logistics/Shipper Name Role Phone Jeanna Oleary MD Primary Care Provider [phone] Estefanía Cervantes PharmD Unavailable [phone] Encounter Details Date Type Department Care Team (Late st Contact Info) Description 12/04/[address] [facility] CHC MED & PEDS [address] [place], [place] [phone] Jeanna Oleary MD [address] [place] [address] Class 3 severe obesity due to excess calories without serious comorbidity with body mass index (BMI) of 40.0 to 44.9 in adult ([facility]) (Primary Dx); Type 2 diabetes mellitus with hyperglycemia, with long-term current use of insulin ([facility]) Social History Tobacco Use Types Packs/Day Years [...] 01/26/2025 9:00 AM EDT Telemedicine [facility] MED & PEDS [address] [place], [place] [phone] Estefanía Cervantes PharmD [address] [place] [address] documented as of this encounter Visit Diagnoses Diagnosis Class 3 severe obesity due to excess calories without serious comorbidity with body mass index (BMI) of 40.0 to 44.9 in adult- Primary Type 2 diabetes mellitus with hyperglycemia, with long-term current use of insulin ([facility]) documented in this encounter Additional Health Concerns Assessment Noted Time PHQ-9 Depression Total Score: 0 11/24/19 23 10:27 AM EDT documented as of this encounter Care Teams Logistics/Shipper Relationship Specialty Start Date End Date Jeanna Oleary MD [address] [place], [place] [phone] PCP - General Internal Medicine 12/19/16 Estefanía Cervantes PharmD [address] [place], [place] [phone] Pharmacist Internal Medicine 06/03/24 documented as of this encounter
--- OUTSIDE RECORDS SUMMARY | 2024-08-20 09:04 | XMS_ITS | Encounter Summary ---
Author Organization [employer] Address 75 [facility] 7t [place] [address] Care Team Providers Care Lead Cytogenetic Technologist Name Role Phone Jeanna Oleary MD Primary Care Provider [phone] Estefanía Cervantes PharmD Unavailable [phone] Encounter Details Date Type Department Care Team (Late st Contact Info) Description 09/20/2023 Orders Only [facility] CHC MED & PEDS [address] [place], [place] [phone] Jeanna Oleary MD [address] [place] [address] Type 2 diabetes mellitus with hyperglycemia, with long-term current use of insulin ([facility]) (Primary Dx) Social History [...] 01/26/2025 9:00 AM EDT Telemedicine [facility] MED & PEDS [address] [place] [address] Estefanía Cervantes PharmD 230 [place] [address] documented as of this encounter Visit Diagnoses Diagnosis Type 2 diabetes mellitus with hyperglycemia, with long-term current use of insulin ([facility])- Primary documented in this encounter Additional Health Concerns Assessment Noted Time PHQ-9 Depression Total Score: 0 11/24/19 23 10:27 AM EDT documented as of this encounter Care Teams Lead Cytogenetic Technologist Relationship Specialty Start Date End Date Jeanna Oleary MD [address] [place] [address] PCP - General Internal Medicine 12/19/16 Estefanía Cervantes, DayneD [address] [place], [place] [phone] Pharmacist Internal Medicine 06/03/24 documented as of this encounter
--- OUTSIDE RECORDS SUMMARY | 2024-08-20 09:04 | XMS_ITS | Encounter Summary ---
Author Organization [employer] Address 75 [facility] 7t [place] [address] Care Team Providers Care Section Maintainer Name Role Phone Jeanna Oleary MD Primary Care Provider [phone] Estefanía Cervantes PharmD Unavailable [phone] Reason for Visit * Reason Onset Date Comments Referral 11/13/2023 Encounter Details Date Type Department Care Team (Late st Contact Info) Description 11/13/2023 Telephone [facility] [address] [place] [address] Jeanna Oleray MD [address] [place] [address] Referral Social History Tobacco Use Types Packs/Day [...] 11/14/2023 10:06 AM EDT Referral faxed to [facility] as requested. * Telephone Encounter - Gene Kumari - 11/13/2023 2:59 PM EDT Tc from pt requesting [facility] [place] [facility] easier. documented in this encounter Plan of Treatment Upcoming Encounters Date Type Department Care Team (Late st Contact Info) Description 01/26/2025 9:00 AM EDT Telemedicine [facility] CHC MED & PEDS 505 [place] [address] Estefanía Cervantes, PharmD 230 [place] [address] documented as of this encounter Visit Diagnoses Not on filedocumented in this encounter Additional Health Concerns Assessment Noted Time PHQ-9 Depression Total Score: 0 11/24/19 23 10:27 AM EDT documented as of this encounter Care Teams Section Maintainer Relationship Specialty Start Date End Date Jeanna Oleary MD 505 [place] [address] PCP - General Internal Medicine 12/19/16 Estefanía Cervantes, Gianni [address] [place] [address] Pharmacist Internal Medicine 06/03/24 documented as of this encounter
--- OUTSIDE RECORDS SUMMARY | 2024-08-20 09:04 | XMS_ITS | Encounter Summary ---
Author Organization [employer] Address [address] [facility] 7t [place] [address] Care Team Providers Care Resistor Inspector Name Role Phone Jeanna Oleary MD Primary Care Provider [phone] sEtefanía Cervantes PharmD Unavailable [phone] Encounter Details Date Type Department Care Team (Late st Contact Info) Description 11/07/2023 Orders Only [facility] MED & PEDS [address] [place], [place] [phone] Jeanna Oleary MD [address] [place] [address] Type 2 diabetes mellitus with hyperglycemia, with long-term current use of insulin ([facility]) (Primary Dx) Social History Tobacco [...] 9:00 AM EDT Telemedicine [facility] [address] [place] [address] Estefanía Cervantes PharmD [address] [place] [address] documented as of this encounter Visit Diagnoses Diagnosis Type 2 diabetes mellitus with hyperglycemia, with long-term current use of insulin ([facility])- Primary documented in this encounter Additional Health Concerns Assessment Noted Time PHQ-9 Depression Total Score: 0 11/24/19 23 10:27 AM EDT documented as of this encounter Care Teams Resistor Inspector Relationship Specialty Start Date End Date Jeanna Oleary MD [address] [place] [address] PCP - General Internal Medicine 12/19/16 Estefanía Cervantes, DayneD [address] [place], [place] [phone] Pharmacist Internal Medicine 06/03/24 documented as of this encounter
--- OUTSIDE RECORDS SUMMARY | 2024-08-20 09:05 | XMS_ITS | Encounter Summary ---
Author Organization [employer] Address [address] [facility] 7t [place] [address] Care Team Providers Care Dot Etcher Apprentice Name Role Phone Jeanna Oleary MD Primary Care Provider [phone] Estefanía Cervantes PharmD Unavailable [phone] Encounter Details Date Type Department Care Team (Late st Contact Info) Description 08/14/2024 Orders Only GENERIC EXTERNAL DATA DEPARTMENT Provider, Generic External Data Social History Tobacco Use Types Packs/Day Years [...] the past 12 months, has t he [employer], oil or water [employer] threatened to shut off services in your [...] Info) Description 01/26/2025 9:00 AM EDT Telemedicine [facility] MED & PEDS [address] [place] [address] Estefanía Cervantes PharmD [address] [place] [address] documented as of this encounter Procedures Procedure Name Priority Date/Time Associated Diagnosis Comments TESTOSTERONE, TOTAL, MALES (ADULT), [place] Routine 08/14/2024 12:02 PM EDT documented in this encounter Results * Testosterone, Total, males (Adult), [place] (08/14/2024 12:02 PM EDT) [facility] Testosterone, Total 316 250 - 1100 ng/dL [facility] Comment:Men with clinically significant hypogonadalsymptoms and testosterone values repeatedly inthe range of the 200-300 ng/dL or less, maybenefit from testosterone treatment afteradequate risk and benefits counseling.For additional information, please refer tohttp://education.[employer] (TTN).Cazoodle/faq/[email or web address](This link is being provided for informational/educational purposes only.)This test was developed and its analytical performancecharacteristics have been determined by [employer] [place], [place]. It hasnot been cleared or approved by the U.S. Food and DrugAdministration. This assay has been validated pursuantto the CLIA regulations and is used for clinicalpurposes.THIS TEST WAS PERFORMED AT:[employer] [facility] [place] [address]CDTTZVELEONORA MCNEIL MD,PHD 08/14/2024 12:0 2 PM EDT 08/14/2024 1:22 PM EDT us Generic External Data Provider LAB BLOOD ORDERAB LES Final Result [facility] [address] [place] [address] [phone] documented in this encounter Visit Diagnoses Not on filedocumented in this encounter Additional Health Concerns Assessment Noted Time PHQ-9 Depression Total Score: 3 06/16/19 25 10:59 AM EST documented as of this encounter Care Teams Dot Etcher Apprentice Relationship Specialty Start Date End Date Jeanna Oleary MD [address] [place] [address] PCP - General Internal Medicine 12/19/16 Estefanía Cervantes PharmD [address] [place] [address] Pharmacist Internal Medicine 06/03/24 documented as of this encounter
--- OUTSIDE RECORDS SUMMARY | 2024-08-20 09:05 | XMS_ITS ---
Author Organization [facility] Address [address] [place] [address] Care Team Providers Care Design Cell Engineer Name Role Phone Richard Oleary MD Primary Care Provider Jas Sommer Unavailable [phone] Encounters Encounter Location Date Provider Diagnosis [address] [address] 02/15/2024 Jas Love Plan Of Treatment Next Appt Details Provider Name:Jas Love , 02/20/2025 09:00:00 AM, [address] [place], [address], Progress Notes * Jaime HAMLINDOB:[birth year] (69 yo M)Acc No.[id number]:02/15/2024 Progress Notes Patient:?Jaime HAMLIN Provider:?Jas Love DPM :1955???Age:68 Y???Sex:Male Giovanni e:02/15/2024 Address:[address] [place] [address] [facility] [id number] Pcp:Richard Oleary MD Subjective: * Chief Complaints: [...] Love DPM Date:?2023 Generated for Mervat lowry/Darek/Nicky on:?08/20/2024 09:05 AM EDT
--- OUTSIDE RECORDS SUMMARY | 2024-08-20 09:05 | XMS_ITS | Encounter Summary ---
Author Organization [employer] Address [address] [place] [address] 7 [place] [address] Care Team Providers Care Project Management Specialist Name Role Phone Jeanna Oleary MD Primary Care Provider [phone] Estefanía Cervantes PharmD Unavailable [phone] Reason for Referral * Imaging (Routine) - Authorized Specialty Diagnoses / Procedures Referred By Contac t Referred To Contact Radiology Diagnoses Hepatomegaly Procedures US Abdomen Comp w elastography Jeanna Oleary MD [address] [place] [address] Phone: tel: fax: [address] Phone: tel: fax: Referral ID Status Reason Start Date Expiration Date V isits Requested Visits Authorized [id number] Authorized 07/11/2024 07/11/2025 1 1 Encounter Details Date Type Department Care Team (Late st Contact Info) Description 07/11/2024 Orders Only [facility] MEDICINE [address] [place] [address] Jeanna Oleary MD [address] [place] [phone] Hepatomegaly (Primary Dx); Primary osteoarthritis of other [...] HOSPITAL [facility]S [address] [place] [address] Estefanía Cervantes, PharmD [address] [place] [address] Scheduled Orders Name Type Priority Associated Diagnoses [...] as of this encounter Care Teams Project Management Specialist Relationship Specialty Start Date End Date Jeanna Oleary MD [address] [place] [id number] PCP - General Internal Medicine 12/19/16 Estefanía Cervantes PharmD [address] [place] [phone] Pharmacist Internal Medicine 06/03/24 documented as of this encounter
--- OUTSIDE RECORDS SUMMARY | 2024-08-20 09:05 | XMS_ITS ---
Author Organization [facility] [place] Address [address] [place] [address] Care Team Providers Care Feltmaker And Weigher Name Role Phone Richard Oleary MD Primary Care Provider Jas Sommer Unavailable [phone] Allergies No Known Allergies REASON FOR VISIT [...] Type 2 diabetes mellitus with peripheral angiopathy (839899832) Type 2 diabetes mellitus with diabetic peripheral angiopathy without gangrene (E11.51) Active confirmed Q7(A), Q8(2B), Q9(1B,2C) Problem Acquired hammer toe of right foot (3837280369232 105) Other hammer toe(s) (acquired), right foot (M20.41) Active confirmed Problem Acquired hammer toe of left foot (7669307505112 103) Other hammer toe(s) (acquired), left foot (M20.42) Active confirmed Vital Signs Blood pressure systolic 128 mm Hg 02/22/20 24 Blood pressure diastolic 80 mm Hg 024 Height 5 ft 10 in in 02/22/2024 Weight 243 lbs 02/22/2024 BMI 34.86 kg/m2 02/22/2024 Encounters Encounter Location Date Provider Diagnosis [facility] [address] [address] 02/22/2024 Jas Ivan Pain in left foot [...] Provider Name:Jas Love , 02/20/2025 09:00:00 AM, [address] [place] [address], [phone], Progress Notes * Jaime HAMLINDOB:[birth year] (68 yo M)Acc No.[id number]:02/22/2024 Progress Notes Patient:?Jaime HAMLIN Provider:?Jas Love DPM :1955???Age:68 Y???Sex:Male Giovanni e:02/22/2024 Address:[address] [place], [place] [id number] Pcp:Richard Oleary MD Subjective: * Chief Complaints: [...] INSTRUCTIONS.pdf (DIABETIC FOOT CARE INSTRUCTIONS.pdf)?? * Procedure Codes:?09777 X-RAY EXAM OF LEFT FOOT 3V, Modifiers: [...] Provider:?Jas Love DPM Date:?2023 Generated for Mervat lowry/Darek/eTpaosmodessa on:?08/20/2024 09:04 AM EDT History and Physical Notes * HPI [...] Date: 02/22/2024 ORIENTED: person, place, and t orbyn Footwear Evaluation Footwear Evaluation performe d:: Yes [...]
--- OUTSIDE RECORDS SUMMARY | 2024-08-20 09:05 | XMS_ITS | Clinical Summary ---
Author Organization [employer] Address [address] [place] [address] 7t [place] [address] Care Team Providers Care Superintendent Circus Name Role Phone Jeanna Oleary MD Primary Care Provider [phone] Estefanía Cervantes PharmD Unavailable [phone] Allergies Active Allergy Reactions Criticality Noted Date [...] g 5 05/14/19 24 Active nystatin (Mycostatin) 363773 UNIT/GM powder APPLY TO THE AFFECTED AREA(S) TWICE DAILY 60 g 2 05/23/19 24 Active Fluticasone-Salme terol (Advair Diskus) 250-50 MCG/ACT aerosol powder USE ONE INHALATION TWICE DAILY. RINSE MOUTH AFTER USE 60 each 5 08/20/19 24 Active Continuous Glucose Lens Fabricating Machine Tender (FreeStyle Yahir 2 [place]) deviceIndications :Type 2 diabetes mellitus with hyperglycemia, with long-term current use of insulin ([facility]) Scan sensor every 8 hours 1 each 09/11/19 24 Active OneTouch Ultra Test test stripIndications: Type 2 diabetes mellitus without complications ([facility]) TEST BLOOD SUGAR SIX TIMES DAILY 200 strip 5 09/14/19 24 Active Ostomy Supplies (Skin Prep Wipes) miscIndications:T ype 2 diabetes mellitus with hyperglycemia, with long-term current use of insulin ([facility]) To wipe the skin prior to applying the sensor 2 times a month 50 each 11 09/20/19 24 Active Spiriva HandiHaler 18 MCG inhalation capsuleIndication s:Mixed simple and mucopurulent chronic bronchitis ([facility]) USE 1 CAPSULE FOR INHALATION ONCE A DAY DO NOT SWALLOW CAPSULE 30 capsule 6 10/02/19 24 Active BD Pen Needle Anny U/F 32G X 4 MM miscIndications:T ype 2 diabetes mellitus with diabetic neuropathy, unspecified ([facility]) USE FOUR DAILY 90 each 10/03/19 24 025 Active furosemide (Lasix) 20 MG tablet TAKE ONE TABLET TWICE DAILY 180 tablet 1 01/28/20 24 Active glipiZIDE (Glucotrol) 5 MG tabletIndications :Type 2 diabetes mellitus with hyperglycemia, with long-term current use of insulin ([facility]) Take 1 tablet (5 mg) [...] index (BMI) of 40.0 to 44.9 in adult,Type 2 diabetes mellitus with hyperglycemia, with long-term current use of insulin ([facility]) INJECT 15 SUBCUTANEOUSLY ONCE A [...] hyperglycemia, with long-term current use of insulin ([facility]) 1 each Once per day. [...] 2 diabetes mellitus with diabetic neuropathy, unspecified ([facility]) TAKE ONE TABLET TWICE DAILY [...] Encounters Date Type Department Care Team Description 08/15/2024 Telephone [facility] [address] [place], [place] [phone] Jeanna Oleary MD Call Back Request 08/14/2024 Orders Only GENERIC EXTERNAL DATA DEPARTMENT Provider, Generic External Data 08/04/2024 9:30 AM EDT Telemedicine [facility] [address] [place] [address] Estefanía Cervantes PharmD Type 2 diabetes mellitus with hyperglycemia, with long-term current use of insulin (CMS/HCC) (Primary Dx) 07/15/2024 Telephone [facility] [address] [place] [address] Natalie Orr, RN Results; Lab Orders 07/15/2024 Telephone [facility] [address] [place] [address] Natalie Orr, cloth finishing range back tender Orders; Results 07/14/2024 Telephone [facility] [address] [place] [address] Jeanna Oleary MD Results 07/14/2024 Refill [facility] [address] [place] [address] Jeanna Oleary MD Hypercholesterolemia 07/11/2024 Orders Only [facility] [address] [place] [address] Jeanna Oleary MD Hepatomegaly (Primary Dx); Primary osteoarthritis of other site 07/01/2024 Refill [facility] [address] [place] [address] Jeanna Oleary MD Vitamin D deficiency; Type 2 diabetes mellitus with diabetic neuropathy, unspecified (CMS/HCC) 06/16/2024 10:00 AM EST Office Visit [facility] [address] [place] [address] Jeanna Oleary MD Benign hypertension (Primary Dx); Type 2 diabetes mellitus with hyperglycemia, with long-term current use of insulin (CMS/HCC); Transaminitis 06/16/2024 Orders Only [facility] [address] [place] [address] Jeanna Oleary MD 06/16/2024 Travel 06/13/2024 Orders Only [facility] [address] [place] [address] Jeanna Oleary MD 06/12/2024 Telephone [facility] [address] [place] [address] Jeanna Oleary MD chart prep 06/03/2024 9:30 AM EST Telemedicine [facility] [address] [facility] [place] [address] Estefanía Cervantes PharmD Type 2 diabetes mellitus with hyperglycemia, with long-term current use of insulin ([facility]) (Primary Dx); Benign hypertension 06/03/2024 Travel 06/03/2024 Refill [facility] [address] [facility] [place] [address] Jeanna Oleary MD Pruritus, unspecified; Pruritus, unspecified 05/28/2024 Orders Only [facility] [address] [facility] [place] [address] Jeanna Oleary MD Type 2 diabetes mellitus with hyperglycemia, with long-term current use of insulin ([facility]) (Primary Dx) 05/28/2024 Telephone [facility] [address] [place], [place] [phone] Jeanna Oleary MD from Last 3 Months Immunizations Name Administration [...] Info) Description 01/26/2025 9:00 AM EDT Telemedicine [facility] [address] [place] [address] Estefanía Cervantes, PharmD [address] [place], [place] [phone] Health Maintenance Due Date Last Done Comments CT Colonography 1955 FIT DNA/Cologuard 1955 FIT 1955 FOBT 1955 Sigmoidoscopy 1955 Diabetes: Foot Exam 1964 Hepatitis A Vaccines (1 of 2 - [...] Completed 07/31/2024, 08/2023, 02/13/2023, Additional history exists Hepatitis C Screening Completed 08/14/2024 HIB Vaccines Aged Out No longer eligi [...] (ADULT), [place] Routine 08/14/2024 12:02 PM EDT HEPATITIS PANEL, GENERAL Routine 08/14/2024 12:02 PM EDT Transaminitis US ABDOMEN COMPLETE Routine 07/10/2024 8 :50 AM EST Transaminitis POCT GLYCATED HEMOGLOBIN, TOTAL Routine 06/16/2024 10:39 AM EST Type 2 diabetes mellitus with hyperglycemia, with long-term current use of insulin ([facility]) POCT GLUCOSE Routine 06/16/2024 10:38 AM EST Type 2 diabetes mellitus with hyperglycemia, with long-term current use of insulin ([facility]) ALBUMIN, RANDOM URINE W/CREATININE Routine 06/13/2024 10:55 AM EST TESTOSTERONE, TOTAL, MALES (ADULT), IA Routine 06/13/2024 10:47 AM EST VITAMIN B12 Routine 06/13/2024 10:47 AM EST COMPREHENSIVE METABOLIC PANEL Routine 06/13/2024 10:47 AM EST LIPID PANEL, STANDARD Routine 11/26/2023 8:45 AM EDT COLONOSCOPY Routine 02/15/2023 HM DIABETES EYE EXAM Routine 02/07/2023 from Last 3 Months or Most Recently Relevant to Health Maintenance Results * Hepatitis A,B,C Profile (08/14/2024 12:02 PM EDT) Hepatitis A IgM Nonreactive Nonreactive [facility] Comment:IgM antibodies to MEDEL V not detected; does not exclude earlyacute or recovered HAV infection. ~Hepatitis B Surface Antibody NONREACTIVE Nonreactive [facility] Comment:Nonreactive: < 8.00 mIU/mL Hepatitis B Core Antibody Nonreactive Nonreactive [facility] Hepatitis C Antibody Nonreactive Nonreactive [facility] Comment:Antibodies to HCV no t detected; does not exclude early acuteHCV infection. Hepatitis B Surface Ag Negative Negative [facility] Blood Venous blood specimen / Unknown 08/14/2024 12:02 PM EDT 08/14/2024 1:22 PM EDT us Jeanna Oleary MD LAB BLOOD ORDERABLES Final Result [facility] [address] [place] [phone] * Testosterone, Total, males (Adult), IA (08/14/2024 12:02 PM EDT) Only the most recent of2 resultswithin the time period is included. Testosterone, Total 316 250 - 1100 ng/dL [facility] Comment:Men with clinically significant hypogonadalsymptoms and testosterone values repeatedly inthe range of the 200-300 ng/dL or less, maybenefit from testosterone treatment afteradequate risk and benefits counseling.For additional information, please refer tohttp://education.Senior Living/faq/[email or web address](This link is being provided for informational/educational purposes only.)This test was developed and its analytical performancecharacteristics have been determined by [employer] [facility], [place]. It hasnot been cleared or approved by the U.S. Food and DrugAdministration. This assay has been validated pursuantto the CLIA regulations and is used for clinicalpurposes.THIS TEST WAS PERFORMED AT:[facility] [id number] [place] [address]DVFODAILEONORA MCNEIL MD,PHD 08/14/2024 12:0 2 PM EDT 08/14/2024 1:22 PM EDT us Generic External Data Provider LAB BLOOD ORDERAB LES Final Result [facility] [address] [place] [phone] * US Abdomen Complete (07/10/2024 8:50 AM EST) Anatomical Region Laterality Modality Abdomen Ultrasound 07/10/2024 8:50 AM EST Narrative 07/11/2024 11:53 AM EST ? [facility] ?[address] ?[place] [address] ? Ultrasound Report ? Signed ? Patient: Jaime Hamlin ?MR#: [id number] ?? 263 ? : 1955 ?Acct:[id number] ? Age/Sex: 68 / M ?ADM Date: 03/06/25 ? Loc: HO.US ? Attending Dr: Jeanna Oleary MD ? Ordering Physician: Jeanna Oleary MD ?? Date of Service: 07/10/24 ?? Procedure(s): US abdomen complete ?? Accession Number(s): [id number] ? cc: Jeanna Oleary MD ? EXAMINATION: [...] ??Nigel Gustafson MD ??07/11/2024 11:50 AM EST ?? RP ? Dictated By: ?Nigel Gustafson MD ? Signed By: ?<Electronically signed by Nigel Gustafson MD in OV> ?07/11/24 1150 ? DD/ 0850 ? TD/TT: 07/10/24 0907 ? Fuller Brush Man: ? Procedure Note Donotkenninterpreter, Image - 07/11/2024 [place] [id number] Ultrasound Report Signed Patient: Jaime Hamlin JMR#: [id number] : 5Acct:[id number] Age/Sex: 68 / MADM Date: 07/10/24 Loc: HO.US Attending Dr: Jeanna Oleary MD Ordering Physician: Jeanna Oleary MD Date of Service: 07/10/24 Procedure(s): US abdomen complete Accession Number(s): [id number] cc: Jeanna Oleary MD EXAMINATION: US ABDOMEN [...] 07/11/24 1150 DD/ 0850 TD/TT: 07/10/24 0907 Fuller Brush Man: Jeanna Oleary MD IMG US PROCEDURES Final Res ult * (ABNORMAL) POCT HGB A1C (06/16/2024 10:39 AM EST) Hemoglobin A1C 6.6(A) 4.0 - 6.0 % QC Media Lot # [id number] Lot# Expiration Date [id number] Blood 06/16/2024 10:3 9 AM EST us Jeanna Oleary MD POINT OF CARE TEST ENTER/ED IT ORDERABLES Final Result * POCT Glucose (06/16/2024 10:38 AM EST) Glucose Blood, POC 176 60 - 200 mg/dL QC Media Lot # [id number] Lot# Expiration Date [id number] Comment:random Blood Capillary blood specimen / Unknown 06/16/2024 10:38 AM EST us Jeanna Oleary MD POINT OF CARE TEST ENTER/ED IT ORDERABLES Final Result * (ABNORMAL) Albumin, Random Urine W/Creatinine (06/13/2024 10:55 AM EST) Creatinine, Urine 87.64 mg/dL [facility] Microalbumin Urine 450.0 mg/L [facility] Microalbum Creatinine Ratio Ur 513.4(H) <30 ug/mg cr [facility] Comment:Albumin/Creatinine R atio Reference Ranges: Normal: < 30 ug/mg creatinine Microalbuminuria: 30 - 300 ug/mg creatinineClinical Albuminuria: > 300 ug/mg creatinine 06/13/2024 10:5 5 AM EST 06/13/2024 1:21 PM EST us Jeanna Oleary MD LAB URINE ORDERABLES Final Result Performing Organization Address [facility] Co de Phone Number [facility] [address] [place] [phone] * Vitamin B12 (06/13/2024 10:47 AM EST) Vitamin B12 704 200 - 900 pg/mL [facility] Comment:NORMAL 200-900 PG/ML INDETERMINATE 160-199 PG/ML DEFICIENT < 160 PG/ML 06/13/2024 10:4 7 AM EST 06/13/2024 1:31 PM EST us Jeanna Oleary MD LAB BLOOD ORDERABLES Final Result Performing Organization Address [facility] Co de Phone Number [facility] [address] [place] [phone] * (ABNORMAL) Comprehensive Metabolic Panel (06/13/2024 10:47 AM EST) Sodium 137 135 - 145 mmol/L [facility] Potassium 4.9 3.3 - 5.1 mmol/L [facility] Chloride 104 96 - 108 mmol/L [facility] Carbon Dioxide 22 22 - 29 mmol/L [facility] Anion Gap 16 12 - 20 [facility] Urea Nitrogen (BUN) 19(H) 9 - 16 mg/dL [facility] Creatinine, Serum 0.84 0.5 - 1.4 mg/dL [facility] Estimated Glomerular Filt Rate >60 [facility] Comment:Chronic Kidney Disea se: Estimated GFR < 60 mL/min/1.86x0Vonbmj Kidney Disease: Estimated GFR < 15 mL/min/1.73m2 Glucose 194(H) 60 - 115 mg/dL [facility] Calcium 9.3 8.4 - 10.2 mg/dL [facility] Bilirubin, Total 0.5 0.0 - 1.0 mg/dL [facility] Aspartate Amino Transferase 46(H) 5 - 37 U/L [facility] Alanine Aminotransferase 47(H) 0 - 40 U/L [facility] Total Protein 7.3 6.5 - 8.0 g/dL [facility] Albumin Level 4.0 3.5 - 5.0 g/dL [facility] Alkaline Phosphatase 62 39 - 117 U/L [facility] 06/13/2024 10:4 7 AM EST 06/13/2024 1:31 PM EST us Jeanna Oleary MD LAB BLOOD ORDERABLES Final Result [facility] [address] [place] [phone] * (ABNORMAL) Lipid Panel, Standard (11/26/2023 8:45 AM EDT) Triglycerides 155(H) <150 mg/dL [facility] Comment:Desirable Triglyceri de: less than 150 mg/dLBorderline High Triglyceride 150-199 mg/dLHigh Triglyceride: 200-499 mg/dLVery High Triglyceride: greater than or equal to 5OO mg/dL Cholesterol 99 <200 mg/dL [facility] Comment:Desirable Cholestero l: less than 200 mg/dLBorderline High Cholesterol: 200-239 mg/dLHigh Cholesterol: greater than 239 mg/dL LDL Cholesterol Calculated 32 <100 mg/dL [facility] Comment:Desirable LDL: less than 100 mg/dLNear Optimal/Above Optimal LDL: 110- 129 mg/dLBorderline High LDL: 130-159 mg/dLHigh LDL: 160-189 mg/dLVery High LDL: greater than or equal to 190 mg/dL HDL Cholesterol 36(L) >40 mg/dL [facility] Comment:Desirable HDL: great er than 40 mg/dL Note: This HDL assay may give artificially low results in patients with liver disease. 11/26/2023 8:45 AM EDT 11/26/2023 8:45 AM EDT us Generic External Data Provider LAB BLOOD ORDERAB LES Final Result [facility] [address] [place] [phone] * (ABNORMAL) Colonoscopy (02/15/2023) Anatomical Region [...] Most Recently Relevant to Health Maintenance Insurance [employer] Care Teams Superintendent Circus Relationship Specialty Start Date End Date Jeanna Oleary MD [address] [place] [phone] PCP - General Internal Medicine 12/19/16 Estefanía Cervantes, DayneD [address] [place] [phone] Pharmacist Internal Medicine 06/03/24
--- OUTSIDE RECORDS SUMMARY | 2024-08-20 09:05 | XMS_ITS | Encounter Summary ---
Author Organization [employer] Address [address] [place] [address] 7 [place] [address] Care Team Providers Care Dairy Husbandry Worker Name Role Phone Jeanna Oleary MD Primary Care Provider [phone] Estefanía Cervantes PharmD Unavailable [phone] Reason for Visit * Reason Comments Med Refill Encounter Details Date Type Department Care Team (Late Contact Info) Description 07/04/2022 Refill [facility] [address] [place], [place] [phone] Jeanna Oleary MD [address] [place], [place] [phone] Mixed simple and mucopurulent chronic bronchitis (CMS/HCC) [...] Info) Description 01/26/2025 9:00 AM EDT Telemedicine [facility] [address] [place], [place] [phone] Estefanía Cervantes, PharmD [address] [place], [place] [phone] documented as of this encounter Visit Diagnoses Diagnosis Mixed simple and mucopurulent chronic bronchitis (CMS/HCC)- Primary Other chronic bronchitis Type 2 diabetes mellitus with hyperglycemia, with long-term current use of insulin (CMS/HCC) documented in this encounter Care Teams Dairy Husbandry Worker Relationship Specialty Start Date End Date Jeanna Oleary MD [address] [place] [address] PCP - General Internal Medicine 12/19/16 Estefanía Cervantes PharmD [address] [place] [address] Pharmacist Internal Medicine 06/03/24 documented as of this encounter
--- OUTSIDE RECORDS SUMMARY | 2024-08-20 09:05 | XMS_ITS | Encounter Summary ---
Author Organization [employer] Address [address] [facility] 7t [place] [address] Care Team Providers Care Body Builder Apprentice Name Role Phone Jeanna Oleary MD Primary Care Provider [phone] Estefanía Cervantes PharmD Unavailable [phone] Reason for Visit * Reason Onset Date Comments Call Back Request 08/15/2024 Encounter Details Date Type Department Care Team ([facility] st Contact Info) Description 08/15/2024 Telephone [facility] [address] [place] [address] Jeanna Oleary MD [address] [place] [address] Call Back Request Social History Tobacco Use Types Packs/Day Years [...] is your housing situation today? I have daniellerenae martines 06/16/[address] you [...] encounter Miscellaneous Notes * Telephone Encounter - Moira Guzman - 08/15/2024 9:55 AM EDT Tc from pt spouse requesting a call back from Estefanía Cervantes. documented in this encounter Plan of Treatment Upcoming Encounters Date Type Department Care Team (Late st Contact Info) Description 01/26/2025 9:00 AM EDT Telemedicine [facility] [address] [place] [address] Estefanía Cervantes, PharmD [address] [place] [address] documented as of this encounter Visit Diagnoses Not on filedocumented in this encounter Additional Health Concerns Assessment Noted Time PHQ-9 Depression Total Score: 3 06/16/19 25 10:59 AM EST documented as of this encounter Care Teams Body Builder Apprentice Relationship Specialty Start Date End Date Jeanna Oleary MD [address] [place] [address] PCP - General Internal Medicine 12/19/16 Estefanía Cervantes PharmD [address] [place] [address] Pharmacist Internal Medicine 06/03/24 documented as of this encounter
--- OUTSIDE RECORDS SUMMARY | 2024-08-20 09:05 | XMS_ITS | Patient Health Record ---
Author Organization [facility] Address [address] [facility] [place] [address] Care Team Providers Care Payroll Coordinator Name Role Phone Richard Oleary MD Primary Care Provider Jas Sommer Unavailable [phone] Allergies No Known Allergies Results Component Value [...] Problem Acquired hammer toe of right foot (5666008803597 105) Other hammer toe(s) (acquired), right foot (M20.41) Active confirmed Problem Acquired hammer toe of left foot (5995250354556 103) Other hammer toe(s) (acquired), left foot (M20.42) Active confirmed Problem Type 2 diabetes mellitus with peripheral angiopathy (728119141) Type 2 diabetes mellitus with diabetic peripheral angiopathy without gangrene (E11.51) Active confirmed Q7(A), Q8(2B), Q9(1B,2C) Vital Signs Blood pressure diastolic 80 mm Hg 02/22/2024 Height 5 ft 10 in in 02/22/2024 Blood pressure systolic 128 mm Hg 02/22/2024 Weight 243 lbs 02/22/2024 BMI 34.86 kg/m2 02/22/2024 Encounters Encounter [facility] Date [facility] [address] 02/22/2024 Jas Love Pain in left foot M79.672 ; Pain in left ankle and joints of left foot M25.572 ; Bursitis of intermetatarsal bursa of left foot M77.52 ; Metatarsalgia, left foot M77.42 ; Type 2 diabetes mellitus with diabetic peripheral angiopathy without gangrene E11.51 ; Other hammer toe(s) (acquired), right foot M20.41 and Other hammer toe(s) (acquired), left foot M20.42 [facility] [address] 11/15/2023 Jas Love Assessments Encounter Date Diagnosis [...] Name:Jas Sutton Ivan , 02/20/2025 09:00:00 AM, [address] [place] [address], [phone], Insurance Providers Payer Name Payer Address Payer Phone Subscriber Number Group Number Insured Name Patient Relationship to Insured Coverage Start Date Coverage End Date Medicare National [employer] [address] [facility] [place] [address] [id number] Jaime Hamlin Self - patient is the insured 7 [employer] [address] [place] [address] [id number] Jaime Hamlin Self - patient is the insured Medical (General) History Medical History History ICD Code covid-19 Diabetic Heart disease High blood pressure Kidney disease Reflux ( GERD) Stomach ulcer Surgical History Surgery Date(Month/Year) Gall bladder removal
--- OUTSIDE RECORDS SUMMARY | 2024-08-20 09:05 | XMS_ITS | Clinical Summary ---
Author Organization [facility] Address [address] [place] [address] Phone Care Team Providers Care Speech Coach Name Role Phone Jeanna Oleary MD Primary Care Provider [phone] Allergies Active Allergy Reactions Criticality Noted Date [...] Completed 01/24/2021, 01/19/2020, 11/09/2015, Additional history exists Pneumococcal Vaccine: Peds (0 to 5 Years) and At-Risk Patients (6 to 49 Years) Discontinued 01/24/2021, 01/19/2020, 11/09/2015, Additional history exists Procedures [...] FLUIDS AND STOOLS ORD ERABLES Final Result [facility] from Last 3 Months or Most Recently Relevant to Health Maintenance Insurance [facility] Medicare [facility] Medicare Care Teams Speech Coach Relationship Specialty Start Date End Date Jeanna Oleary MD PCP - General 05/17/20
== END 2024-08-20 08:43 | disposition home or self-care (01) ==
LOC: HO.US 08:42
PROVIDERS: PCP Internal Medicine; Visit Provider Internal Medicine
DX: R16.0 Hepatomegaly, not elsewhere classified (principal)
CPT/HCPCS: 76705; 76981

== ENCOUNTER → 2024-08-20 08:45 | Outpatient (BNV) | payer MEDICARE, SELFPAY | PROVIDERS: PCP Internal Medicine; Visit Provider Radiology Diagnostic Radiology | DX: R16.0 Hepatomegaly, not elsewhere classified (principal) | CPT/HCPCS: 76705; 76981 ==

== ENCOUNTER 2024-09-02 09:42 | Outpatient (AMB) | payer MEDICARE, SELFPAY ==
--- NOTE | 2024-09-02 09:53 | A.OFFVIS_ITS ---
Intake Visit Reasons: Testopel insertion Intake Note: Patient is present for TESTOPEL INSERTION Urology Medication:TESTOSTERONE Antibiotic Allergy:SIMVASTATIN Blood Thinner:RIVAROXABAN Power Operator Required: No Allergies oxycodone [OXYCODONE] Adverse Reaction (Intermediate, Verified 09/02/24 09:54) HALLUCINATIONS, DIZZINESS simvastatin Adverse Reaction (Intermediate, Verified 09/02/24 09:54) myalgias elevated CPK HPI Comments Details: Jaime is a pleasant male. He is a patient of Dr. Oleary. He is here for the following urologic conditions - hypogonadism - erectile dysfunction Here for testosterone pellet placement 6 pellets placed Repeat lab work at 2 weeks and 10 weeks Repeat placement at 12 weeks Discussed results of last cycle. Shows max 550 and min 320 Aim is to stay between 604 100 Labs 1st cycle 2wk 490 10wk 464 2nd 550 - 320 Has lost 95 lb from [employer] Erectile dysfunction 2 piece prosthetic Capsulation of bulb Would recommend replacement prosthetic once weight loss complete Low testosterone Previously failed injections and gel and patches Gel did not bring T high enough Injections painful Patches caused dermatitis Trial testosterone pellets PENDING SALE TO [facility] Medical History (Updated 07/02/24 @ 14:07 by Erasmo Daily MD) PAF (paroxysmal atrial fibrillation) Hyperplastic polyps of stomach Anemia Atrial fibrillation Hypertension Hyperlipidemia Type 2 diabetes mellitus Respiratory failure with hypoxia and hypercapnia COPD (chronic obstructive pulmonary disease) Nocturnal hypoxemia TAE (obstructive sleep apnea) Obesity (BMI 30-39.9) Personal history of nicotine dependence Cervical disc herniation Erectile dysfunction Gynecomastia Hypogonadism in male Sialolithiasis of submandibular gland COVID-19 vaccine series completed Surgical History History of cardiac ablation for atrial fibrillation History of umbilical hernia repair History of vasectomy History of colonoscopy History of appendectomy History of uvulopalatopharyngoplasty History of repair of right rotator cuff History of right knee surgery History of cardioversion History of cervical discectomy History of esophagogastroduodenoscopy (EGD) H/O prior ablation treatment (04/09/20) History of penile implant History of cholecystectomy Family History Father No problems noted. Mother No problems noted. Social History Household Members: Spouse Housing: House Are you a primary long term care administrator to a significant other at home: No Do you presently have visiting nurse or other home services: No Alcohol intake: current Alcohol intake frequency: a few times a month Alcohol type: beer Patient Tobacco Use Status: Former Tobacco user Tobacco use type: Cigarette Cigarette Packs Per Day: 2.5 Cigarettes Per Day: 50.0 Years Smoked: 40 Review of Systems Const Denies chills and Denies fever(s) Card Reports no additional complaints and Denies syncope Resp Denies cough GI Denies abdominal pain and Denies heartburn Reports as per HPI and Denies change in libido Neuro Denies syncope Psych Denies change in libido Endo Denies change in libido Physical Exam Const General: cooperative, healthy appearing, comfortable and no acute distress Orientation/consciousness: patient oriented x3 HEENT Face and sinus: Yes normal facial exam Mouth: moist mucous membranes Neck Neck: Yes normal visual inspection, Yes full ROM and Yes trachea midline Chest Chest palpation & inspection: normal inspection of the chest Resp Effort & Inspection: normal respiratory effort, able to speak in complete sentences and no respiratory distress GI Inspection: Yes normal to inspection Back/Spine/Pelvis Cervical Spine: normal cervical lordosis Thoracic/Lumbar Spine: thoracic and lumbar spine normal to inspection Skin General skin exam: no rashes or lesions noted Neuro General: patient oriented x3, gait normal, tone normal and moves all extremities Extrem General: Yes normal to inspection and Yes capillary refill normal Office Procedures AMB Testopel Details: Testopel Placement Pre Op Diagnosis - Low testosterone Post Op Diagnosis - Low Testosterone Procedure: Testopel Insertion Testopel was prepared for insertion. Six Testopel pellets were removed from the individual glass containers and placed in a sterile container. The patient was placed in left lateral position with left side down and right side up. The area over the right hip was cleaned with Betadine. Lidocaine 2% was injected first as a skin wheal and then into the subcutaneous tissue directed in a fashion down towards the femur in the subcutaneous space to perform hydrodissection. The purpose of the injection is to numb the length of the trocar track. A 15 Blade scapel was used to make a puncture incision into the subcutaneous space. Trocar with sharp-ended stylet inserted through stab incision at a 45? angle and into the subcutaneous fat layer. The needle was flatten out and advanced nba ving the pellet loading area exposed. 6 pellets were inserted using Adson forceps into the loading trocar. The blunt stylet was used to advance pellets into the tract while withdrawing the trocar. The trocar insertion site was closed with multiple steristrips and a dressing placed. CPT 41717 J3490 Office Meds Testopel 75 mg implant pellet Performing Provider: Willard Srinivasan MD Performing Location: [facility] Administered by: Willard Srinivasan MD on 09/02/24 12:28 Dose Route Admin Location Dispensed Lot Number Expiration Date [employer] 75 mg implant 6 ea naproxen 500 mg tablet Performing Provider: Willard Srinivasan MD Performing Location: [facility] Administered by: Willard Srinivasan MD on 09/02/24 12:28 Dose Route Admin Location Dispensed Lot Number Expiration Date [employer] 500 mg PO 1 tab Assessment & Plan Assessment & Plan (1) Hypogonadism in male: Code(s): E29.1 - Testicular hypofunction Category: Medical Plan Three-month follow-up repeat to we can 10 week testosterone Will repeat assessment for penile prosthetic revision Orders: Orders AMB Testosterone Pellet Implant Today E29.1 - Testicular hypofunction Testosterone, Total 2 Weeks E29.1 - Testicular hypofunction Testosterone, Total 10 Weeks E29.1 - Testicular hypofunction Medications: New Testopel (testosterone) 75 mg implant ONCE 1 ea 0RF NS E29.1 - Testicular hypofunction naproxen 500 mg PO ONCE 1 tab 0RF E29.1 - Testicular hypofunction Patient Instructions: This note is constructed using voice recognition software. While every effort has been made to ensure accuracy mental health director errors may have been included. Imaging studies, laboratory and physical exam results were discussed and reviewed in detail. No major barriers to patient understanding were identified. An opportunity to ask questions regarding the treatment plan was provided. All questions were answered. The patient expressed understanding and agreement with the above treatment plan. The patient is aware they should contact our office by phone for worsening of their current condition or the appearance of new urologic symptoms. Compliance is encouraged with any medications and followup testing that is ordered. It is a privilege to participate in the urologic care of your patient. If you have any questions or concerns regarding treatment for the above conditions, or other urologic issues, please do not hesitate to contact me. The office telephone contact is [phone]. Sincerely, Dr Willard Srinivasan MD, [facility] - Urology Compassionate Specialist Care for the Genitourinary System Coding Level of Care Code Est Pt Level 3 (39673) Complex EM visit Add On G2211 Diagnoses Hypogonadism in male E29.1
--- OUTSIDE RECORDS SUMMARY | 2024-09-02 10:48 | XMS_ITS | Encounter Summary ---
Author Organization [employer] Address [address] [place] [address] Care Team Providers Care Quiller Machine Fixer Name Role Phone Jeanna Oleary MD Primary Care Provider [phone] Estefanía Cervantes PharmD Unavailable [phone] Encounter Details Date Type Department Care Team (Late st Contact Info) Description 09/20/2023 Orders Only [facility] [address], [place] [id number] Jeanna Oleary MD [address] [place] [address] Type 2 diabetes mellitus with hyperglycemia, with long-term current use of insulin ([facility]) (Primary Dx) Social History Tobacco [...] Info) Description 01/26/2025 9:00 AM EDT Telemedicine [facility] [address] [place] [address] Estefanía Cervantes PharmD [address] [place] [address] documented as of this encounter Visit Diagnoses Diagnosis Type 2 diabetes mellitus with hyperglycemia, with long-term current use of insulin ([facility])- Primary documented in this encounter Additional Health Concerns Assessment Noted Time PHQ-9 Depression Total Score: 0 11/24/19 23 10:27 AM EDT documented as of this encounter Care Teams Quiller Machine Fixer Relationship Specialty Start Date End Date Jeanna Oleary MD [address] [place] [address] PCP - General Internal Medicine 12/19/16 Estefanía Cervantes, DayneD [address], [place] [id number] Pharmacist Internal Medicine 06/03/24 documented as of this encounter
--- OUTSIDE RECORDS SUMMARY | 2024-09-02 10:48 | XMS_ITS | Encounter Summary ---
Author Organization [employer] Address [address] [place] [address] Care Team Providers Care Chinese Instructor Name Role Phone Jeanna Oleary MD Primary Care Provider [phone] Estefanía Cervantes PharmD Unavailable [phone] Encounter Details Date Type Department Care Team (Late st Contact Info) Description 07/11/2024 Orders Only [facility] MED[facility] [address] [place] [address] Jeanna Oleary MD [address] [place] [address] Hepatomegaly (Primary Dx); Primary osteoarthritis of other [...] [facility] [address] [place] [address] Estefanía Cervantes, PharmD [address] [place] [address] Scheduled Orders Name Type Priority Associated Diagnoses Orde r Schedule Hm Dexa Scan Imaging Routine Hepatomegaly Primary osteoarthritis of other site Expected: 07/11/2024 (Approximate), Expires: 10/11/2024 documented as of this encounter Procedures Procedure Name Priority Date/Time Associated Diagnosis Comments US ABDOMEN WYATT W ELASTOGRAPHY Routine 08/20/2024 9:12 AM EDT documented in this encounter Results * US ABDOMEN WYATT W ELASTOGRAPHY (08/20/2024 9:12 AM EDT) Anatomical Region Laterality Modality Abdomen Ultrasound 08/20/2024 9:12 AM EDT Narrative 08/20/2024 10:08 AM EDT ? [facility] ?[address] ?[place] [address] ? Ultrasound Report ? Signed ? Patient: Demears,Jaime J ?MR#: [id number] ?? [id number] ? : 1955 ?Acct:[id number] ? Age/Sex: 69 / M ?ADM Date: 08/20/24 ? Loc: HO.US ? Attending Dr: Jeanna Oleary MD ? Ordering Physician: Jeanna Oleary MD ?? Date of Service: 08/20/24 ?? Procedure(s): US abdomen wyatt w elastography ?? Accession Number(s): [id number] ? cc: Jeanna Oleary MD ? EXAMINATION: ??US ABDOMEN LIMITED WITH LIVER ELASTOGRAPHY ? HISTORY: HEPATOMEGALY ? TECHNIQUE: Real-time grayscale ultrasound imaging of the right upper ?? quadrant was performed and images were reviewed. ? COMPARISON: Comparison is made with the prior examination dated ?? 07/10/2024. ? FINDINGS: ?? Liver: ?? The right lobe of the liver measures 18.7 cm in size. The left ?? lobe of the liver measures 9.0 cm in size. The liver demonstrates ?? coarsened echotexture with a nodular contour, suggestive of cirrhosis. ? No focal mass or intrahepatic biliary ductal dilatation is identified. ? There is normal hepatopedal flow in the portal vein. ? Ultrasound elastography of the liver was performed with 10 separate ?? measurements of the liver parenchyma with the patient in the supine ?? position. ??Measurements were obtained approximately 2 cm below ?? Abhi's capsule and perpendicular to the capsule. ??Images are of ?? satisfactory quality. ? The median shear wave velocity is 1.40 m/s. ?? The interquartile range/median (IQR/median) is 0.05. ? Gallbladder and biliary tree: The gallbladder is surgically absent. ? The common bile duct is measures 10 mm in diameter. ? Right Kidney: ??The right kidney measures 10.5 cm in length and ?? demonstrates a 4 x 4 by 6 mm upper pole cyst and a 10 x 10 x 12 mm ?? interpolar cyst. ??The right kidney is otherwise unremarkable, without ?? evidence of solid masses, hydronephrosis, or calculi. ? Pancreas: The pancreatic head, neck, and body are unremarkable. The ?? pancreatic tail is obscured by bowel gas. ? Abdominal aorta and inferior vena cava: The visualized portions of the ?? abdominal aorta and inferior vena cava are normal in caliber. ? There is no free fluid in the right upper quadrant. ? US/US abdomen wyatt w elastography ?? IMPRESSION: ? Hepatomegaly and findings suggestive of hepatic cirrhosis. ? The median shear wave velocity in the liver is 1.40 m/s, corresponding ?? to a median liver stiffness of 6.06 kPa. ??The IQR/median value is 0.05. ?? This is indicative of a quality data set. ?? Findings are indicative of a low elastography value which rules out ?? advanced chronic liver disease in asymptomatic patients. ? REFERENCE: ?? Society of Radiologists in Ultrasound Liver Stiffness Thresholds (2019): ? LIVER STIFFNESS THRESHOLDS: ?? *Shear wave velocity less than 1.3 m/s (Liver Stiffness equal or less ?? than 5 kPa): ??High probability of being normal. ?? *Shear wave velocity less than 1.7 m/s (Liver Stiffness less than 9 ?? kPa): ??In the absence of other known clinical signs, rules out ?? compensated advanced chronic liver disease. ?? *Shear wave velocity between 1.7-2.1 m/s (Liver Stiffness 9-13 kPa): ? Suggestive of compensated advanced chronic liver disease but need ?? further test for confirmation. ?? *Shear wave velocity between 2.1-2.4 m/s (Liver Stiffness 13-17 kPa): ? Rules in compensated advanced chronic liver disease. ?? *Shear wave velocity ??greater than 2.4 m/s (Liver Stiffness over 17 ?? kPa): ??Suggestive of clinically significant portal hypertension. ? QUALITY OF DATA SET: ?? *IQR/Median value equal or less than 0.15 implies a quality data set. ?? *IQR/Median value over 0.15 implies a poor quality data set. ? SIGNIFICANT CHANGE FROM PRIOR EXAM: ?? Significant change if liver stiffness measurement is 10% or greater ?? from prior exam. ? OTHER CONSIDERATIONS: ?? The stage of liver fibrosis may be overestimated in the setting of ?? acute hepatitis, liver inflammation, elevated liver function tests, ?? hepatic vascular congestion, obstructive cholestasis, non-fasting ?? state, and infiltrative diseases such as amyloidosis and lymphoma. ??In ?? some patients with NAFLD, the liver stiffness thresholds for ?? compensated advanced chronic liver disease may be lower. ??In causes ?? other than viral hepatitis and NAFLD, liver stiffness thresholds are ?? not well established. ? Electronically signed by: ??Nigel Gustafson MD ??08/20/2024 10:05 AM EDT ? Dictated By: ?Nigel Gustafson MD ? Signed By: ?<Electronically signed by Nigel Gustafson MD in OV> ?08/20/24 1005 ? DD/ 0912 ? TD/TT: 08/20/24 0935 ? Seam Press Operator: ? Procedure Note Donjosefter, Image - 08/20/2024 [place] [id number] Ultrasound Report Signed Patient: Jaime Hamlin JMR#: [id number] : 5Acct:[id number] Age/Sex: 69 / MADM Date: 08/20/24 Loc: HO.US Attending Dr: Jeanna Oleary MD Ordering Physician: Jeanna Oleary MD Date of Service: 08/20/24 Procedure(s): US abdomen wyatt w elastography Accession Number(s): [id number] cc: Jeanna Oleary MD EXAMINATION: US ABDOMEN LIMITED WITH LIVER ELASTOGRAPHY HISTORY: HEPATOMEGALY TECHNIQUE: Real-time grayscale ultrasound imaging of the right upper quadrant was performed and images were reviewed. COMPARISON: Comparison is made with the prior examination dated 07/10/2024. FINDINGS: Liver: The right lobe of the liver measures 18.7 cm in size. The left lobe of the liver measures 9.0 cm in size. The liver demonstrates coarsened echotexture with a nodular contour, suggestive of cirrhosis. No focal mass or intrahepatic biliary ductal dilatation is identified. There is normal hepatopedal flow in the portal vein. Ultrasound elastography of the liver was performed with 10 separate measurements of the liver parenchyma with the patient in the supine position. Measurements were obtained approximately 2 cm below Abhi's capsule and perpendicular to the capsule. Images are of satisfactory quality. The median shear wave velocity is 1.40 m/s. The interquartile range/median (IQR/median) is 0.05. Gallbladder and biliary tree: The gallbladder is surgically absent. The common bile duct is measures 10 mm in diameter. Right Kidney: The right kidney measures 10.5 cm in length and demonstrates a 4 x 4 by 6 mm upper pole cyst and a 10 x 10 x 12 mm interpolar cyst. The right kidney is otherwise unremarkable, without evidence of solid masses, hydronephrosis, or calculi. Pancreas: The pancreatic head, neck, and body are unremarkable. The pancreatic tail is obscured by bowel gas. Abdominal aorta and inferior vena cava: The visualized portions of the abdominal aorta and inferior vena cava are normal in caliber. There is no free fluid in the right upper quadrant. US/US abdomen wyatt w elastography IMPRESSION: Hepatomegaly and findings suggestive of hepatic cirrhosis. The median shear wave velocity in the liver is 1.40 m/s, corresponding to a median liver stiffness of 6.06 kPa. The IQR/median value is 0.05. This is indicative of a quality data set. Findings are indicative of a low elastography value which rules out advanced chronic liver disease in asymptomatic patients. REFERENCE: Society of Radiologists in Ultrasound Liver Stiffness Thresholds (2020): LIVER STIFFNESS THRESHOLDS: *Shear wave velocity less than 1.3 m/s (Liver Stiffness equal or less than 5 kPa): High probability of being normal. *Shear wave velocity less than 1.7 m/s (Liver Stiffness less than 9 kPa): In the absence of other known clinical signs, rules out compensated advanced chronic liver disease. *Shear wave velocity between 1.7-2.1 m/s (Liver Stiffness 9-13 kPa): Suggestive of compensated advanced chronic liver disease but need further test for confirmation. *Shear wave velocity between 2.1-2.4 m/s (Liver Stiffness 13-17 kPa): Rules in compensated advanced chronic liver disease. *Shear wave velocity greater than 2.4 m/s (Liver Stiffness over 17 kPa): Suggestive of clinically significant portal hypertension. QUALITY OF DATA SET: *IQR/Median value equal or less than 0.15 implies a quality data set. *IQR/Median value over 0.15 implies a poor quality data set. SIGNIFICANT CHANGE FROM PRIOR EXAM: Significant change if liver stiffness measurement is 10% or greater from prior exam. OTHER CONSIDERATIONS: The stage of liver fibrosis may be overestimated in the setting of acute hepatitis, liver inflammation, elevated liver function tests, hepatic vascular congestion, obstructive cholestasis, non-fasting state, and infiltrative diseases such as amyloidosis and lymphoma. In some patients with NAFLD, the liver stiffness thresholds for compensated advanced chronic liver disease may be lower. In causes other than viral hepatitis and NAFLD, liver stiffness thresholds are not well established. Electronically signed by: Nigel Gustafson MD 08/20/2024 10:05 AM EDT RP Dictated By: Nigel Gustafson MD Signed By: <Electronically signed by Nigel Gustafson MD in OV> 08/20/24 1005 DD/ 0912 TD/TT: 08/20/24 0935 Seam Press Operator: us Jeanna Oleary MD IMG US PROCEDURES Final Res ult documented in this encounter Visit Diagnoses Diagnosis Hepatomegaly- Primary Primary osteoarthritis of other site documented in this encounter Additional Health Concerns Assessment Noted Time PHQ-9 Depression Total Score: 3 06/16/19 25 10:59 AM EST documented as of this encounter Care Teams Chinese Instructor Relationship Specialty Start Date End Date Jeanna Oleary MD [address] [place] [address] PCP - General Internal Medicine 12/19/16 Estefanía Cervantes PharmD [address] [place] [address] Pharmacist Internal Medicine 06/03/24 documented as of this encounter
--- OUTSIDE RECORDS SUMMARY | 2024-09-02 10:48 | XMS_ITS | Encounter Summary ---
Author Organization [employer] Address [address] [facility] 7t [place] [address] Care Team Providers Care Grey Stock Recorder Name Role Phone Jeanna Oleary MD Primary Care Provider [phone] Estefanía Cervantes PharmD Unavailable [phone] Reason for Visit * Reason Onset Date Comments Referral 11/13/2023 Encounter Details Date Type Department Care Team (Late st Contact Info) Description 11/13/2023 Telephone [facility] [address] [place] [address] Jeanna Oleary MD 505 [place] [address] Referral Social History Tobacco Use Types Packs/Day [...] 11/14/2023 10:06 AM EDT Referral faxed to [facility] as requested. * Telephone Encounter - Gene Kumari - 11/13/2023 2:59 PM EDT Tc from pt requesting for Podiatry referral to be [facility] [place] due to location being easier. documented in this encounter Plan of Treatment Upcoming Encounters Date Type Department Care Team (Late st Contact Info) Description 01/26/2025 9:00 AM EDT Telemedicine [facility] MED & PEDS [address] [place] [address] Estefanía Cervantes, PharmD [address] [place] [address] documented as of this encounter Visit Diagnoses Not on filedocumented in this encounter Additional Health Concerns Assessment Noted Time PHQ-9 Depression Total Score: 0 11/24/19 23 10:27 AM EDT documented as of this encounter Care Teams Grey Stock Recorder Relationship Specialty Start Date End Date Jeanna Oleary MD [address] [place] [address] PCP - General Internal Medicine 12/19/16 Estefanía Cervantes, Gianni [address] [place] [address] Pharmacist Internal Medicine 06/03/24 documented as of this encounter
--- OUTSIDE RECORDS SUMMARY | 2024-09-02 10:48 | XMS_ITS | Encounter Summary ---
Author Organization [employer] Address [address] [place] [address] 7 [place] [address] Care Team Providers Care Material Man Name Role Phone Jeanna Oleary MD Primary Care Provider [phone] Estefanía Cervantes PharmD Unavailable [phone] Reason for Referral * Consultation (Routine) - Closed Specialty Diagnoses / Procedures Referred By Contac t Referred To Contact Endocrinology Diagnoses Hypogonadism male Jeanna Oleary MD [address] [place] [address] Phone: tel: fax: [facility] [address] [place] [address] Phone: tel: fax: Referral ID Status Reason Start Date Expiration Date V isits Requested Visits Authorized [id number] Closed Specialty Services Required 10/11/2023 10/10/2024 1 1 Encounter Details Date Type Department Care Team (Late st Contact Info) Description 10/11/2023 Orders Only [facility] CH[facility] MED & PEDS [address] [place] [address] Jeanna Oleary MD [address] [place] [address] Hypogonadism male (Primary Dx) Social History Tobacco [...] Info) Description 01/26/2025 9:00 AM EDT Telemedicine [facility] MED & PEDS [address] [place] [address] Estefanía Cervantes, PharmD [address] [place] [address] Scheduled Referrals Name Type Priority Associated Diagnoses [...] Testosterone, Total 94(A) 250 - 1100 ng/dL [facility] Comment:Men with clinically significant hypogonadalsymptoms and testosterone values repeatedly inthe range of the 200-300 ng/dL or less, maybenefit from testosterone treatment afteradequate risk and benefits counseling.For additional information, please refer tohttp://education.[employer].gamigo/faq/KmoefZawumdvnavepOJAHRMKSW426(This link is being provided for informational/educational purposes only.)This test was developed and its analytical performancecharacteristics have been determined by [employer] [place], [place]. It hasnot been cleared or approved by the U.S. Food and DrugAdministration. This assay has been validated pursuantto the CLIA regulations and is used for clinicalpurposes.THIS TEST WAS PERFORMED AT:[employer] [place] [address]TTLQLSGLEONORA MCNEIL MD,PHD Blood Venous blood specimen / Unknown 10/16/2023 2:12 PM EDT 10/16/2023 5:54 PM EDT Jeanna Oleary MD LAB BLOOD ORDERABLES Final Result [facility] [address] [place] [address] [phone] documented in this encounter Visit Diagnoses Diagnosis Hypogonadism male- Primary Other testicular hypofunction documented in this encounter Additional Health Concerns Assessment Noted Time PHQ-9 Depression Total Score: 0 11/24/19 23 10:27 AM EDT documented as of this encounter Care Teams Material Man Relationship Specialty Start Date End Date Jeanna Oleary MD [address] [place] [address] PCP - General Internal Medicine 12/19/16 Estefanía Cervantes PharmD [address] [place] [address] Pharmacist Internal Medicine 06/03/24 documented as of this encounter
--- OUTSIDE RECORDS SUMMARY | 2024-09-02 10:48 | XMS_ITS | Encounter Summary ---
Author Organization [employer] Address [address] [facility] 7t [place] [address] Care Team Providers Care Fire And Explosion Investigator Name Role Phone Jeanna Oleary MD Primary Care Provider [phone] Estefanía Cervantes PharmD Unavailable Encounter Details Date Type Department Care Team (Late st Contact Info) Description 06/16/2024 Orders Only [facility] MED & PEDS [address] [place], [place] [phone] Jeanna Oleary MD 505 [place] [address] Social History Tobacco Use Types Packs/Day Years [...] Description 01/26/2025 9:00 AM EDT Telemedicine [facility] MED & PEDS [address] [place] [address] Estefanía Cervantes, PharmD [address] [place] [address] documented as of this encounter Visit Diagnoses Not on filedocumented in this encounter Additional Health Concerns Assessment Noted Time PHQ-9 Depression Total Score: 3 06/16/19 25 10:59 AM EST documented as of this encounter Care Teams Fire And Explosion Investigator Relationship Specialty Start Date End Date Jeanna Oleary MD [address] [place] [address] PCP - General Internal Medicine 12/19/16 Estefanía Cervantes, PharmD [address] [place] [address] Pharmacist Internal Medicine 06/03/24 documented as of this encounter
--- OUTSIDE RECORDS SUMMARY | 2024-09-02 10:48 | XMS_ITS | Encounter Summary ---
Author Organization [employer] Address [address] [facility] 7t [place] [address] Care Team Providers Care Assistant Distribution Manager Name Role Phone Jeanna Oleary MD Primary Care Provider [phone] Estefanía Cervantes PharmD Unavailable [phone] Encounter Details Date Type Department Care Team (Late st Contact Info) Description 01/01/2024 Orders Only [facility] MED & PEDS 505 [place], [place] [phone] Jeanna Oleary MD 505 [place] [address] Type 2 diabetes mellitus with hyperglycemia, with long-term current use of insulin ([facility]) (Primary Dx) Social History Tobacco [...] Description 01/26/2025 9:00 AM EDT Telemedicine [facility] MED [facility] PEDS [address] [place] [address] Estefanía Cervantes PharmD [address] [place] [address] documented as of this encounter Visit Diagnoses Diagnosis Type 2 diabetes mellitus with hyperglycemia, with long-term current use of insulin ([facility])- Primary documented in this encounter Additional Health Concerns Assessment Noted Time PHQ-9 Depression Total Score: 0 11/24/19 23 10:27 AM EDT documented as of this encounter Care Teams Assistant Distribution Manager Relationship Specialty Start Date End Date Jeanna Oleary MD [address] [place] [address] PCP - General Internal Medicine 12/19/16 Estefanía Cervantes, DayneD [address] [place], [place] [phone] Pharmacist Internal Medicine 06/03/24 documented as of this encounter
--- OUTSIDE RECORDS SUMMARY | 2024-09-02 10:48 | XMS_ITS | Encounter Summary ---
Author Organization [employer] Address [address] [facility] 7t [place] [address] Care Team Providers Care Flare Breaker Name Role Phone Jeanna Oleary MD Primary Care Provider [phone] Estefanía Cervantes PharmD Unavailable [phone] Encounter Details Date Type Department Care Team (Late st Contact Info) Description 01/29/2024 Orders Only [facility] CH[facility] MED & PEDS [address] [place], [place] [phone] Jeanna Oleary MD [address] [place] [address] Class 3 severe obesity due to excess calories without serious comorbidity with body mass index (BMI) of 40.0 to 44.9 in adult ([facility]) (Primary Dx); Type 2 diabetes mellitus with hyperglycemia, with long-term current use of insulin ([facility]) Social History Tobacco Use Types [...] [facility] [address] [place], [place] [phone] Estefanía Cervantes PharmD [address] [place] [address] documented as of this encounter Visit Diagnoses Diagnosis Class 3 severe obesity due to excess calories without serious comorbidity with body mass index (BMI) of 40.0 to 44.9 in adult- Primary Type 2 diabetes mellitus with hyperglycemia, with long-term current use of insulin ([facility]) documented in this encounter Additional Health Concerns Assessment Noted Time PHQ-9 Depression Total Score: 0 11/24/19 23 10:27 AM EDT documented as of this encounter Care Teams Flare Breaker Relationship Specialty Start Date End Date Jeanna Oleary MD [address] [place], [place] [phone] PCP - General Internal Medicine 12/19/16 Estefanía Cervantes PharmD [address] [place], [place] [phone] Pharmacist Internal Medicine 06/03/24 documented as of this encounter
--- OUTSIDE RECORDS SUMMARY | 2024-09-02 10:48 | XMS_ITS | Encounter Summary ---
Author Organization [employer] Address [address] [facility] 7t [place] [address] Care Team Providers Care Bindery Machine Tender Name Role Phone Jeanna Oleary MD Primary Care Provider [phone] Estefanía Cervantes PharmD Unavailable [phone] Reason for Visit * Reason Comments Med Refill Encounter Details Date Type Department Care Team ([facility] st Contact Info) Description 09/14/2023 Refill [facility] CHC MED & PEDS [address] [place], [place] [phone] Jeanna Oleary MD 505 [place] [address] Type 2 diabetes mellitus without complications (CMS/HCC) [...] [facility] [address] [place] [address] Estefanía Cervantes PharmD [address] [place] [address] documented as of this encounter Visit Diagnoses Diagnosis Type 2 diabetes mellitus without complications (CMS/HCC) documented in this encounter Additional Health Concerns Assessment Noted Time PHQ-9 Depression Total Score: 0 11/24/19 23 10:27 AM EDT documented as of this encounter Care Teams Bindery Machine Tender Relationship Specialty Start Date End Date Jeanna Oleary MD 505 [place] [address] PCP - General Internal Medicine 12/19/16 Estefanía Cervantes PharmD [address] [place] [address] Pharmacist Internal Medicine 06/03/24 documented as of this encounter
--- OUTSIDE RECORDS SUMMARY | 2024-09-02 10:48 | XMS_ITS ---
Author Organization [facility]umar [place] Address [address] [place] [address] Care Team Providers Care Lug Loader Name Role Phone Richard Oleary MD Primary Care Provider Jas Sommer Unavailable [phone] Allergies No Known Allergies REASON FOR VISIT [...] Type 2 diabetes mellitus with peripheral angiopathy (982040712) Type 2 diabetes mellitus with diabetic peripheral angiopathy without gangrene (E11.51) Active confirmed Q7(A), Q8(2B), Q9(1B,2C) Problem Acquired hammer toe of right foot (2189012983500 105) Other hammer toe(s) (acquired), right foot (M20.41) Active confirmed Problem Acquired hammer toe of left foot (2646148355466 103) Other hammer toe(s) (acquired), left foot (M20.42) Active confirmed Vital Signs Height 5 ft 10 in in 02/22/2024 Weight 243 lbs 02/22/2024 BMI 34.86 kg/m2 02/22/2024 Blood pressure systolic 128 mm Hg 02/22/20 24 Blood pressure diastolic 80 mm Hg 024 Encounters Encounter Location Date Provider Diagnosis [facility] [address] [address] 02/22/2024 Jas Ivan Pain in left foot [...] Provider Name:Jas Love , 02/20/2025 09:00:00 AM, [address] [place] [address], [phone], Progress Notes * Jaime HAMLINDOB:[birth year] (68 yo M)Acc No.[id number]:02/22/2024 Progress Notes Patient:?Jaime HAMLIN Provider:?Jas Love DPM :1955???Age:68 Y???Sex:Male Giovanni e:02/22/2024 Address:[address] [place], [place] [id number] Pcp:Richard Oleary MD Subjective: * Chief Complaints: [...] INSTRUCTIONS.pdf (DIABETIC FOOT CARE INSTRUCTIONS.pdf)?? * Procedure Codes:?81150 X-RAY EXAM OF LEFT FOOT 3V, Modifiers: [...] Provider:?Jas Love DPM Date:?2023 Generated for Mervat lowry/Darek/eTransmodessa on:?09/02/2024 10:48 AM EDT History and Physical Notes * [...]
--- OUTSIDE RECORDS SUMMARY | 2024-09-02 10:48 | XMS_ITS | Encounter Summary ---
Author Organization [employer] Address [address] [facility] 7t [place] [address] Care Team Providers Care Ios Architect Name Role Phone Jeanna Oleary MD Primary Care Provider [phone] Estefanía Cervantes PharmD Unavailable [phone] Encounter Details Date Type Department Care Team (Late st Contact Info) Description 09/05/2023 Orders Only [facility] CHC MED & PEDS [address] [place], [place] [phone] Jeanna Oleary MD 505 [place] [address] Hyperkalemia (Primary Dx); Type 2 diabetes mellitus with hyperglycemia, with long-term current use of insulin ([facility]); Erectile disorder Social History Tobacco [...] 01/26/2025 9:00 AM EDT Telemedicine [facility] MED & PEDS [address] [place] [address] Estefanía Cervantes PharmD [address] [place] [address] Scheduled Orders Name Type Priority Associated Diagnoses [...] Testosterone, Total 98(A) 250 - 1100 ng/dL [facility] Comment:Men with clinically significant hypogonadalsymptoms and testosterone values repeatedly inthe range of the 200-300 ng/dL or less, maybenefit from testosterone treatment afteradequate risk and benefits counseling.For additional information, please refer tohttp://education.[employer].CHARGED.fm/faq/EzihtKrrgyafuqktmJSKJRPLVF026(This link is being provided for informational/educational purposes only.)This test was developed and its analytical performancecharacteristics have been determined by [employer] [place]. It hasnot been cleared or approved by the U.S. Food and DrugAdministration. This assay has been validated pursuantto the CLIA regulations and is used for clinicalpurposes. Testosterone, Free 14.7(A) 35.0 - 155.0 pg/mL [facility] Comment:This test was develo ped and its analytical performancecharacteristics have been determined by [employer]. It hasnot been cleared or approved by the U.S. Food and DrugAdministration. This assay has been validated pursuantto the CLIA regulations and is used for clinicalpurposes.THIS TEST WAS PERFORMED AT:[employer] [place] [address]CWIFMWCLEONORA MCNEIL MD,PHD Blood Venous blood specimen / Unknown 10/03/2023 12:52 PM EDT 10/03/2023 4:32 PM EDT Jeanna Oleary MD LAB BLOOD ORDERABLES Final Result [facility] [address] [place] [address] [phone] documented in this encounter Visit Diagnoses Diagnosis Hyperkalemia- Primary Hyperpotassemia Type 2 diabetes mellitus with hyperglycemia, with long-term current use of insulin ([facility]) Erectile disorder documented in this encounter Additional Health Concerns Assessment Noted Time PHQ-9 Depression Total Score: 0 11/24/19 23 10:27 AM EDT documented as of this encounter Care Teams Ios Architect Relationship Specialty Start Date End Date Jeanna Oleary MD [address] [place] [address] PCP - General Internal Medicine 12/19/16 Estefanía Cervantes PharmD [address] [place] [address] Pharmacist Internal Medicine 06/03/24 documented as of this encounter
--- OUTSIDE RECORDS SUMMARY | 2024-09-02 10:48 | XMS_ITS ---
Author Organization [facility] Address [address] [place] [address] Care Team Providers Care Advisor Advocate Angel Co Founder Name Role Phone Richard Oleary MD Primary Care Provider Jas Sommer [phone] REASON FOR VISIT [facility] Entered Encounters Encounter Location Date Provider Diagnosis [address] [address] 11/15/2023 Jas Love Plan Of Treatment Next Appt Details Provider Name:Jas Love , 02/20/2025 09:00:00 AM, [address] [place], [address], Progress Notes * Jaiem HAMLINDOB:[birth year] (68 yo M)Acc No.[id number]:11/15/2023 Patient:?Jaime Hamlin :1955???Age:68 Y???Sex:Male Address:[address] [facility] [place], [address] * true * Date:? Generated for Printi ng/Faxing/eTransmitting on:?09/02/2024 10:47 AM EDT
--- OUTSIDE RECORDS SUMMARY | 2024-09-02 10:48 | XMS_ITS | Clinical Summary ---
Author Organization [employer] Address [address] [place] [address] 7t [place] [address] Care Team Providers Care Exhauster Engineer Name Role Phone Jeanna Oleary MD Primary Care Provider [phone] Estefanía Cervantes PharmD Unavailable [phone] Allergies Active Allergy Reactions Criticality Noted Date [...] g 5 05/14/19 24 Active nystatin (Mycostatin) 528951 UNIT/GM powder APPLY TO THE AFFECTED AREA(S) TWICE DAILY 60 g 2 05/23/19 24 Active Fluticasone-Salme terol (Advair Diskus) 250-50 MCG/ACT aerosol powder USE ONE INHALATION TWICE DAILY. RINSE MOUTH AFTER USE 60 each 5 08/20/19 24 Active Continuous Glucose Cinder Dump Crane Operator (FreeStyle Yahir 2 [place]) deviceIndications :Type 2 diabetes mellitus with hyperglycemia, with long-term current use of insulin ([facility]) Scan sensor every 8 hours 1 each 09/11/19 24 Active OneTouch Ultra Test test stripIndications: Type 2 diabetes mellitus without complications ([facility]) TEST BLOOD SUGAR SIX TIMES DAILY 200 strip 5 09/14/19 24 Active Ostomy Supplies (Skin Prep Wipes) miscIndications:T ype 2 diabetes mellitus with hyperglycemia, with long-term current use of insulin ([facility]) To wipe the skin prior to applying the sensor 2 times a month 50 each 11 09/20/19 24 Active Spiriva HandiHaler 18 MCG inhalation capsuleIndication s:Mixed simple and mucopurulent chronic bronchitis ([facility]) USE 1 CAPSULE FOR INHALATION ONCE A DAY DO NOT SWALLOW CAPSULE 30 capsule 6 10/02/19 24 Active BD Pen Needle Anny U/F 32G X 4 MM miscIndications:T ype 2 diabetes mellitus with diabetic neuropathy, unspecified ([facility]) USE FOUR DAILY 90 each 10/03/19 24 025 Active furosemide (Lasix) 20 MG tablet TAKE ONE TABLET TWICE DAILY 180 tablet 1 01/28/20 24 Active glipiZIDE (Glucotrol) 5 MG tabletIndications :Type 2 diabetes mellitus with hyperglycemia, with long-term current use of insulin ([facility]) Take 1 tablet (5 mg) by mouth [...] hyperglycemia, with long-term current use of insulin ([facility]) INJECT 15 SUBCUTANEOUSLY ONCE A WEEK 2 [...] Encounters Date Type Department Care Team Description 08/20/2024 Orders Only [facility] PEDS [address] [place] [address] Jeanna Oleary MD Other cirrhosis of liver (CMS/HCC) (Primary Dx) 08/15/2024 Telephone [facility] [address] [place] [address] Jeanna Oleary MD Call Back Request; Results 08/14/2024 Orders Only GENERIC EXTERNAL DATA DEPARTMENT Provider, Generic External Data 08/04/2024 9:30 AM EDT Telemedicine [facility] MED & PEDS [address] [place] [address] Estefanía Cervantes PharmD Type 2 diabetes mellitus with hyperglycemia, with long-term current use of insulin (CMS/HCC) (Primary Dx) 07/15/[address] [facility] MED [facility] PEDS [address] [place] [address] Natalie Orr, RN Results; Lab Orders 07/15/[address] [facility] [address] [place] [address] Natalie Orr, leading firefighter Orders; Results 07/14/[address] [facility] [address] [place] [address] Jeanna Oleary MD Results 07/14/2024 Refill [facility] [address] [place] [address] Jeanna Oleary MD Hypercholesterolemia 07/11/2024 Orders Only [facility] [address] [place] [address] Jeanna Oleary MD Hepatomegaly (Primary Dx); Primary osteoarthritis of other site 07/01/2024 Refill [facility] [address] [place] [address] Jeanna Oleary MD Vitamin D deficiency; Type 2 diabetes mellitus with diabetic neuropathy, unspecified (CMS/HCC) 06/16/2024 10:00 AM EST Office Visit [facility] P[facility] [address] [place] [address] Jeanna Oleary MD Benign hypertension (Primary Dx); Type 2 diabetes mellitus with hyperglycemia, with long-term current use of insulin (CMS/HCC); Transaminitis 06/16/2024 Orders [address] [facility] [address] [place] [address] Jeanna Oleary MD 06/16/2024 Travel 06/13/2024 Orders [address] [facility] [address] [place] [address] Jeanna Oleary MD 06/12/[address] [facility] [address] [place] [address] Jeanna Oleary MD chart prep from Last 3 Months Immunizations Name Administration [...] Info) Description 01/26/2025 9:00 AM EDT Telemedicine [facility] [address] [place] [address] Estefanía Cervantes, PharmD [address] [place] [address] Health Maintenance Due Date Last Done Comments CT Colonography 1955 FIT DNA/Cologuard 1955 Sigmoidoscopy 1955 Diabetes: Foot Exam 1964 Hepatitis A Vaccines (1 of 2 - Risk 2-dose series) 1973 Hepatitis B Vaccines (3 of 3 - Risk 3-dose series) 06/02/2018 03/04/2018, 12/31/2017, 11/30/2017 FIT 12/26/2023 12/25/2022 FOBT 12/26/2023 12/25/2022 Eye Exam 02/08/2024 02/07/2023 Lipid Panel 11/25/2024 [...] W ELASTOGRAPHY Routine 08/20/2024 9:12 AM EDT TESTOSTERONE, TOTAL, MALES (ADULT), IA Routine 08/14/2024 12:02 PM EDT HEPATITIS PANEL, GENERAL Routine 08/14/2024 12:02 PM EDT Transaminitis US ABDOMEN COMPLETE Routine 07/10/2024 8 :50 AM EST Transaminitis POCT GLYCATED HEMOGLOBIN, TOTAL Routine 06/16/2024 10:39 AM EST Type 2 diabetes mellitus with hyperglycemia, with long-term current use of insulin (CMS/HCC) POCT GLUCOSE Routine 06/16/2024 10:38 AM EST Type 2 diabetes mellitus with hyperglycemia, with long-term current use of insulin ([facility]) ALBUMIN, RANDOM URINE W/CREATININE [...] Relevant to Health Maintenance Results * US ABDOMEN WYATT W ELASTOGRAPHY (08/20/2024 9:12 AM EDT) Anatomical Region Laterality Modality Abdomen Ultrasound 08/20/2024 9:12 AM EDT Narrative 08/20/2024 10:08 AM EDT ? [facility] ?[address] ?[place] [address] ? Ultrasound Report ? Signed ? Patient: Jaime Hamlin ?MR#: [id number] ?? [id number] ? : 1955 ?Acct:[id number] ? Age/Sex: 69 / M ?ADM Date: 08/20/24 ? Loc: HO.US ? Attending Dr: Jeanna Oleary MD ? Ordering Physician: Jeanna Oleary MD ?? Date of Service: 08/20/24 ?? Procedure(s): US abdomen wyatt w elastography ?? Accession Number(s): [id number] ? cc: Jeanna Oleary MD ? EXAMINATION: [...] DD/ 0912 ? TD/TT: 08/20/24 0935 ? Concrete Boom Operator: ? Procedure Note Cassy Webb - 08/20/[address] [address] Ultrasound Report Signed Patient: Jaime Hamlin R#: [id number] : 5Acct:[id number] Age/Sex: 69 / MADM Date: 08/20/24 Loc: HO.US Attending Dr: Jeanna Oleary MD Ordering Physician: Jeanna Oleary MD Date of Service: 08/20/24 Procedure(s): US abdomen wyatt w elastography Accession Number(s): [id number] cc: Jeanna Oleary MD EXAMINATION: US ABDOMEN [...] Nigel Gustafson MD 08/20/2024 10:05 AM EDT Dictated By: Nigel Gustafson MD Signed By: <Electronically signed by Nigel Gustafson MD in OV> 08/20/24 1005 DD/ 0912 TD/TT: 08/20/24 0935 Concrete Boom Operator: us Jeanna Oleary MD [facility] US PROCEDURES Final Res ult * Hepatitis A,B,C Profile (08/14/2024 12:02 PM EDT) Hepatitis A IgM Nonreactive Nonreactive [facility] Comment:IgM antibodies to MEDEL V not detected; does not exclude earlyacute or recovered HAV infection. ~Hepatitis B Surface Antibody NONREACTIVE Nonreactive [facility] Comment:Nonreactive: < 8.00 mIU/mL Hepatitis B Core Antibody Nonreactive Nonreactive [facility] Hepatitis C Antibody Nonreactive Nonreactive [facility] Comment:Antibodies to HCV no t detected; does not exclude early acuteHCV infection. Hepatitis B Surface Ag Negative Negative [facility] Blood Venous blood specimen / Unknown 08/14/2024 12:02 PM EDT 08/14/2024 1:22 PM EDT Jeanna Oleary MD LAB BLOOD ORDERABLES Final Result Performing Organization Address [facility] Co de Phone Number [facility] [address] [place] [phone] * Testosterone, Total, males (Adult), IA (08/14/2024 12:02 PM EDT) Only the most recent of2 resultswithin the time period is included. Testosterone, Total 316 250 - 1100 ng/dL [facility] Comment:Men with clinically significant hypogonadalsymptoms and testosterone values repeatedly inthe range of the 200-300 ng/dL or less, maybenefit from testosterone treatment afteradequate risk and benefits counseling.For additional information, please refer [email or web address]/faq/[email or web address](This link is being provided for informational/educational purposes only.)This test was developed and its analytical performancecharacteristics have been determined by [employer] [place], [place]. It hasnot been cleared or approved by the U.S. Food and DrugAdministration. This assay has been validated pursuantto the CLIA regulations and is used for clinicalpurposes.THIS TEST WAS PERFORMED AT:[employer]/[facility] [place] [address]KAWXALHLEONORA MCNEIL MD,PHD 08/14/2024 12:0 2 PM EDT 08/14/2024 1:22 PM EDT us Generic External Data Provider LAB BLOOD ORDERAB LES Final Result Performing Organization Address City/[facility]/ZIP Co de Phone Number [facility] [address] [place] [phone] * US Abdomen Complete (07/10/2024 8:50 AM EST) Anatomical Region Laterality Modality Abdomen Ultrasound 07/10/2024 8:50 AM EST Narrative 07/11/2024 11:53 AM EST ? [facility] ?[address] ?[place] [address] ? Ultrasound Report ? Signed ? Patient: Jaime Hamlin ?MR#: [id number] ?? 263 ? : 1955 ?Acct:[id number] ? Age/Sex: 68 / M ?ADM Date: 07/10/24 ? Loc: HO.US ? Attending Dr: Jeanna Oleary MD ? Ordering Physician: Jeanna Oleary MD ?? Date of Service: 07/10/24 ?? Procedure(s): US abdomen complete ?? Accession Number(s): [id number] ? cc: Jeanna Oleary MD ? EXAMINATION: [...] DD/ 0850 ? TD/TT: 07/10/24 0907 ? Concrete Boom Operator: ? Procedure Note Tracey, Image - 07/11/2024 [place] [address] Ultrasound Report Signed Patient: Jaime Hamlin R#: [id number] 263 : 5Acct:[id number] Age/Sex: 68 / MADM Date: 07/10/24 Loc: HO.US Attending Dr: Jeanna Oleary MD Ordering Physician: Jeanna Oleary MD Date of Service: 07/10/24 Procedure(s): US abdomen complete Accession Number(s): [id number] cc: Jeanna Oleary MD EXAMINATION: US ABDOMEN [...] 07/11/24 1150 DD/ 0850 TD/TT: 07/10/24 0907 Concrete Boom Operator: us Jeanna Oleary MD IM US PROCEDURES Final Res ult * (ABNORMAL) POCT HGB A1C (06/16/2024 10:39 AM EST) Hemoglobin A1C 6.6(A) 4.0 - 6.0 % QC Media Lot # [id number] Lot# Expiration Date [id number] Blood 06/16/2024 10:3 9 AM EST us Jeanna Oleary MD POINT OF CARE TEST ENTER/ED IT ORDERABLES Final Result * POCT Glucose (06/16/2024 10:38 AM EST) Glucose Blood, POC 176 60 - 200 mg/dL [employer] Lot # [id number] Lot# Expiration Date 941,733 Comment:random Blood Capillary blood specimen / Unknown 06/16/2024 10:38 AM EST us Jeanna Oleary MD POINT OF CARE TEST ENTER/ED IT ORDERABLES Final Result * (ABNORMAL) Albumin, Random Urine W/Creatinine (06/13/2024 10:55 AM EST) Creatinine, Urine 87.64 mg/dL [facility] Microalbumin Urine 450.0 mg/L [facility] Microalbum Creatinine Ratio Ur 513.4(H) <30 ug/mg cr [facility] Comment:Albumin/Creatinine R atio Reference Ranges: Normal: < 30 ug/mg creatinine Microalbuminuria: 30 - 300 ug/mg creatinineClinical Albuminuria: > 300 ug/mg creatinine 06/13/2024 10:5 5 AM EST 06/13/2024 1:21 PM EST Jeanna Oleary MD LAB URINE ORDERABLES Final Result [facility] [address] [place] [phone] * Vitamin B12 (06/13/2024 10:47 AM EST) Vitamin B12 704 200 - 900 pg/mL [facility] Comment:NORMAL 200-900 PG/ML INDETERMINATE 160-199 PG/ML DEFICIENT < 160 PG/ML 06/13/2024 10:4 7 AM EST 06/13/2024 1:31 PM EST us Jeanna Oleary MD LAB BLOOD ORDERABLES Final Result [facility] [address] [place] [phone] * (ABNORMAL) Comprehensive Metabolic Panel (06/13/2024 10:47 AM EST) Sodium 137 135 - 145 mmol/L [facility] Potassium 4.9 3.3 - 5.1 mmol/L [facility] Chloride 104 96 - 108 mmol/L [facility] Carbon Dioxide 22 22 - 29 mmol/L [facility] Anion Gap 16 12 - [address] [facility] Urea Nitrogen (BUN) 19(H) 9 - 16 mg/dL [facility] Creatinine, Serum 0.84 0.5 - 1.4 mg/dL [facility] Estimated Glomerular Filt Rate >[address] [facility] Comment:Chronic Kidney Disea se: Estimated GFR < 60 mL/min/1.62c4Idwilq Kidney Disease: Estimated GFR < 15 mL/min/1.73m2 Glucose 194(H) 60 - 115 mg/dL [facility] Calcium 9.3 8.4 - 10.2 mg/dL [facility] Bilirubin, Total 0.5 0.0 - 1.0 mg/dL [facility] Aspartate Amino Transferase 46(H) 5 - 37 U/L [facility] Alanine Aminotransferase 47(H) 0 - 40 U/L [facility] Total Protein 7.3 6.5 - 8.0 g/dL [facility] Albumin Level 4.0 3.5 - 5.0 g/dL [facility] Alkaline Phosphatase 62 39 - 117 U/L [facility] 06/13/2024 10:4 7 AM EST 06/13/2024 1:31 PM EST us Jeanna Oleary MD LAB BLOOD ORDERABLES Final Result [facility] [address] [place] [phone] * (ABNORMAL) Lipid Panel, Standard (11/26/2023 8:45 AM EDT) Triglycerides 155(H) <150 mg/dL [facility] Comment:Desirable Triglyceri de: less than 150 mg/dLBorderline High Triglyceride 150-199 mg/dLHigh Triglyceride: 200-499 mg/dLVery High Triglyceride: greater than or equal to 5OO mg/dL Cholesterol 99 <200 mg/dL [facility] Comment:Desirable Cholestero l: less than 200 mg/dLBorderline High Cholesterol: 200-239 mg/dLHigh Cholesterol: greater than 239 mg/dL LDL Cholesterol Calculated 32 <100 mg/dL [facility] Comment:Desirable LDL: less than 100 mg/dLNear Optimal/Above Optimal LDL: 110- 129 mg/dLBorderline High LDL: 130-159 mg/dLHigh LDL: 160-189 mg/dLVery High LDL: greater than or equal to 190 mg/dL HDL Cholesterol 36(L) >40 mg/dL [facility] Comment:Desirable HDL: great er than 40 mg/dL Note: This HDL assay may give artificially low results in patients with liver disease. 11/26/2023 8:45 AM EDT 11/26/2023 8:45 AM EDT us Generic External Data Provider LAB BLOOD ORDERAB LES Final Result [facility] [address] [place] [address] [phone] * (ABNORMAL) Colonoscopy (02/15/2023) Anatomical Region Laterality Modality Endoscopy Narrative 02/15/2023 Diverticulosis of sigmoid colon. Internal hemorrhoids. Done by Dr Kirby Lomax. Repeat Colonoscopy in 5 years. us Jeanna Oleary MD ENDOSCOPY PROCEDURE ORDERAB LES Final Result * Hm Diabetes Eye Exam (02/07/2023) Eye Exam Normal Normal Narrative Мария Prabhakar [place] - 02/07/2023 No diabetic retinopathy us Jeanna Oleary MD HEALTH MAINTENANCE Final Re sult from Last 3 Months or Most Recently Relevant to Health Maintenance [place] [address] MEDICARE ADVANTAGE HMO Care Teams Exhauster Engineer Relationship Specialty Start Date End Date Jeanna Oleary MD [address] [place] [phone] PCP - General Internal Medicine 12/19/16 Estefanía Cervantes PharmD [address] [place] [phone] Pharmacist Internal Medicine 06/03/24
--- OUTSIDE RECORDS SUMMARY | 2024-09-02 10:48 | XMS_ITS | Encounter Summary ---
Author Organization [employer] Address [address] [facility] 7t [place] [address] Care Team Providers Care Curator Zoological Museum Name Role Phone Jeanna Oleary MD Primary Care Provider [phone] Estefanía Cervantes PharmD Unavailable [phone] Encounter Details Date Type Department Care Team (Late st Contact Info) Description 11/07/2023 Orders Only [facility] PEDS [address] [place], [place] [phone] Jeanna Oleary MD [address] [place] [address] Type 2 diabetes mellitus with hyperglycemia, with long-term current use of insulin ([facility]) (Primary Dx) Social History Tobacco Use [...] Info) Description 01/26/2025 9:00 AM EDT Telemedicine [facility]EDS [address] [place] [address] Estefanía Cervantes PharmD [address] [place] [address] documented as of this encounter Visit Diagnoses Diagnosis Type 2 diabetes mellitus with hyperglycemia, with long-term current use of insulin ([facility])- Primary documented in this encounter Additional Health Concerns Assessment Noted Time PHQ-9 Depression Total Score: 0 11/24/19 23 10:27 AM EDT documented as of this encounter Care Teams Curator [employer]ological Museum Relationship Specialty Start Date End Date Jeanna Oleary MD [address] [place] [address] PCP - General Internal Medicine 12/19/16 Estefanía Cervantes, DayneD [address] [place], [place] [phone] Pharmacist Internal Medicine 06/03/24 documented as of this encounter
--- OUTSIDE RECORDS SUMMARY | 2024-09-02 10:48 | XMS_ITS | Encounter Summary ---
Author Organization [employer] Address [address] [facility] 7t [place] [address] Care Team Providers Care Chemist Physical Name Role Phone Jeanna Oleary MD Primary Care Provider [phone] Estefanía Cervantes PharmD Unavailable Encounter Details Date Type Department Care Team (Late st Contact Info) Description 12/04/2023 Orders Only [facility]EDS [address] [place], [place] [phone] Jeanna Oleary MD [address] [place] [address] Class 3 severe obesity due to excess calories without serious comorbidity with body mass index (BMI) of 40.0 to 44.9 in adult ([facility]) (Primary Dx); Type 2 diabetes mellitus with hyperglycemia, with long-term current use of insulin ([facility]) Social History Tobacco Use Types [...] [facility] P[facility] [address] [place], [place] [phone] Estefanía Cervantes PharmD [address] [place] [address] documented as of this encounter Visit Diagnoses Diagnosis Class 3 severe obesity due to excess calories without serious comorbidity with body mass index (BMI) of 40.0 to 44.9 in adult- Primary Type 2 diabetes mellitus with hyperglycemia, with long-term current use of insulin ([facility]) documented in this encounter Additional Health Concerns Assessment Noted Time PHQ-9 Depression Total Score: 0 11/24/19 23 10:27 AM EDT documented as of this encounter Care Teams Chemist Physical Relationship Specialty Start Date End Date Jeanna Oleary MD [address] [place], [place] [phone] PCP - General Internal Medicine 12/19/16 Estefanía Cervantes PharmD [address] [place], [place] [phone] Pharmacist Internal Medicine 06/03/24 documented as of this encounter
--- OUTSIDE RECORDS SUMMARY | 2024-09-02 10:48 | XMS_ITS | Encounter Summary ---
Author Organization [employer] Address [address] [place] [address] 7 [place] [address] Care Team Providers Care Patient Advocate Name Role Phone Jeanna Oleary MD Primary Care Provider [phone] Estefanía Cervantes PharmD Unavailable [phone] Reason for Referral * Consultation (Routine) - Closed Specialty Diagnoses / Procedures Referred By Contac t Referred To Contact Cardiology Diagnoses Atrial fibrillation with rapid ventricular response (CMS/HCC) Jeanna Oleary MD [address] [place] [phone] Phone: tel: fax: Erasmo Daily MD [address] [place] [address] Phone: tel: fax: Referral ID Status Reason Start Date Expiration Date V isits Requested Visits Authorized [id number] Closed Specialty Services Required 03/20/2024 03/20/2025 1 1 Encounter Details Date Type Department Care Team (Late st Contact Info) Description 03/20/2024 Orders Only [facility] MED & PEDS [address] [place], [place] [phone] Jeanna Oleary MD [address] [place], [place] Atrial fibrillation with rapid ventricular response [...] Info) Description 01/26/2025 9:00 AM EDT Telemedicine [facility] [address] [place] [address] Estefanía Cervantes, PharmD [address] [place] [address] Scheduled Referrals Name Type Priority Associated Diagnoses [...] documented as of this encounter Care Teams Patient Advocate Relationship Specialty Start Date End Date Jeanna Oleary MD [address] [place] [address] PCP - General Internal Medicine 12/19/16 Estefanía Cervantes PharmD [address] [place] [phone] Pharmacist Internal Medicine 06/03/24 documented as of this encounter
--- OUTSIDE RECORDS SUMMARY | 2024-09-02 10:48 | XMS_ITS | Patient Health Record ---
Author Organization [facility] Address [address] [place] [address] Care Team Providers Care Sales Account Leader Name Role Phone Richard Oleary MD Primary Care Provider Jas Sommer Unavailable [phone] Allergies No Known Allergies Results Component Value [...] Problem Acquired hammer toe of right foot (1228514499995 105) Other hammer toe(s) (acquired), right foot (M20.41) Active confirmed Problem Acquired hammer toe of left foot (7883197413729 103) Other hammer toe(s) (acquired), left foot (M20.42) Active confirmed Problem Type 2 diabetes mellitus with peripheral angiopathy (471299110) Type 2 diabetes mellitus with diabetic peripheral angiopathy without gangrene (E11.51) Active confirmed Q7(A), Q8(2B), Q9(1B,2C) Vital Signs Blood pressure diastolic 80 mm Hg 02/22/2024 Height 5 ft 10 in in 02/22/2024 Blood pressure systolic 128 mm Hg 02/22/2024 Weight 243 lbs 02/22/2024 BMI 34.86 kg/m2 02/22/2024 Encounters Encounter Location Date Provider Diagnosis [facility] [phone] 02/22/2024 Jas Love Pain in left foot [...] (acquired), left foot M20.42 [facility] [address] 11/15/2023 Jas Love Assessments Encounter Date Diagnosis [...] Name:Jas Sutton Ivan , 02/20/2025 09:00:00 AM, [address] [place] [address], [phone], Insurance Providers Payer Name Payer Address Payer Phone Subscriber Number Group Number Insured Name Patient Relationship to Insured Coverage Start Date Coverage End Date Medicare National [employer] [address] [place] [address] [id number] Jaime Hamlin Self - patient is the insured 7 [employer] [address] [place] [address] [id number] Jaime Hamlin Self - patient is the insured Medical (General) History Medical History History ICD Code covid-19 Diabetic Heart disease High blood pressure Kidney disease Reflux ( GERD) Stomach ulcer Surgical History Surgery Date(Month/Year) Gall bladder removal
--- OUTSIDE RECORDS SUMMARY | 2024-09-02 10:48 | XMS_ITS | Encounter Summary ---
Author Organization [employer] Address [address] [place] [address] 7t [place] [address] Care Team Providers Care Spinning Supervisor Name Role Phone Jeanna Oleary MD Primary Care Provider [phone] Estefanía Cervantes PharmD Unavailable [phone] Reason for Referral * Consultation (Routine) - Authorized Specialty Diagnoses / Procedures Referred By Contac t Referred To Contact Gastroenterology Diagnoses Other cirrhosis of liver (CMS/HCC) Jeanna Oleary MD [address] [place] [address] Phone: tel: fax: Linda Shah MD [address] [place] [address] 3[address] [place] [address] Phone: tel: fax: Referral ID Status Reason Start Date Expiration Date Visits Requested Visits Authorized [id number] Authorized Specialty Services Required 08/20/2024 08/20/2025 1 1 Encounter Details Date Type Department Care Team (Late st Contact Info) Description 08/20/2024 Orders Only [facility] MED & PEDS [address] [place], [place] [phone] Jeanna Oleary MD [address] [place] [address] Other cirrhosis of liver (CMS/HCC) (Primary Dx) Social History Tobacco Use [...] [facility] [address] [place] [address] Estefanía Cervantes, PharmD [address] [place], [place] [phone] Scheduled Referrals Name Type Priority Associated Diagnoses Order Schedule Referral to Gastroenterology Outpatient Referral Routine Other cirrhosis of liver (CMS/HCC) Expected: 08/20/2024 (Approximate), Expires: 08/20/2025 documented as of this encounter Visit Diagnoses Diagnosis Other cirrhosis of liver (CMS/HCC)- Primary documented in this encounter Additional Health Concerns Assessment Noted Time PHQ-9 Depression Total Score: 3 06/16/19 25 10:59 AM EST documented as of this encounter Care Teams Spinning Supervisor Relationship Specialty Start Date End Date Jeanna Oleary MD [address] [place] [address] PCP - General Internal Medicine 12/19/16 Estefanía Cervantes PharmD [address] [place] [address] Pharmacist Internal Medicine 06/03/24 documented as of this encounter
--- OUTSIDE RECORDS SUMMARY | 2024-09-02 10:48 | XMS_ITS | Clinical Summary ---
Author Organization [facility] Address [address] [place] [address] Phone Care Team Providers Care Staple Side Laster Name Role Phone Jeanna Oleary MD Primary Care Provider [phone] Allergies Active Allergy Reactions Criticality Noted Date [...] Most Recently Relevant to Health Maintenance Insurance [facility] Medicare [facility] Medicare Care Teams Staple Side Laster Relationship Specialty Start Date End Date Jeanna Oleary MD PCP - General 05/17/20
--- OUTSIDE RECORDS SUMMARY | 2024-09-02 10:49 | XMS_ITS | Encounter Summary ---
Author Organization [employer] Address [address] [place] [address] 7 [place] [address] Care Team Providers Care Parachute Harness Rigger Name Role Phone Jeanna Oleary MD Primary Care Provider [phone] Estefanía Cervantes PharmD Unavailable [phone] Reason for Visit * Reason Comments Med Refill Encounter Details Date Type Department Care Team (Late Contact Info) Description 07/04/2022 Refill [facility] MEDICINE [address] [place], [place] [phone] Jeanna Oleary MD [address] [place], [place] [phone] Mixed simple and mucopurulent chronic bronchitis (CMS/HCC) [...] Info) Description 01/26/2025 9:00 AM EDT Telemedicine [facility] CHC MED & PEDS [address] [place], [place] [phone] Estefanía Cervantes, PharmD [address] [place], [place] [phone] documented as of this encounter Visit Diagnoses Diagnosis Mixed simple and mucopurulent chronic bronchitis (CMS/HCC)- Primary Other chronic bronchitis Type 2 diabetes mellitus with hyperglycemia, with long-term current use of insulin (CMS/HCC) documented in this encounter Care Teams Parachute Harness Rigger Relationship Specialty Start Date End Date Jeanna Oleary MD [address] [place] [address] PCP - General Internal Medicine 12/19/16 Estefanía Cervantes PharmD [address] [place] [address] Pharmacist Internal Medicine 06/03/24 documented as of this encounter
--- OUTSIDE RECORDS SUMMARY | 2024-09-02 10:49 | XMS_ITS ---
Author Organization [facility] Address [address] [place] [address] Care Team Providers Care Talent Engineer Name Role Phone Richard Oleary MD Primary Care Provider Jas Sommer Unavailable [phone] Encounters Encounter Location Date Provider Diagnosis [address] [address] 02/15/2024 Jas Love Plan Of Treatment Next Appt Details Provider Name:Jas Love , 02/20/2025 09:00:00 AM, [address] [place], [address], Progress Notes * Jaime HAMLINDOB:[birth year] (69 yo M)Acc No.[id number]:02/15/2024 Progress Notes Patient:?Jaime HAMLIN Provider:?Jas Love DPM :1955???Age:68 Y???Sex:Male Giovanni e:02/15/2024 Address:[address] [place] [address] [facility] [place]-[id number] Pcp:Richard Oleary MD Subjective: * Chief Complaints: [...] Love DPM Date:?2023 Generated for Mervat lowry/Darek/Nicky on:?09/02/2024 10:48 AM EDT
== END 2024-09-02 11:16 | disposition home or self-care (01) ==
LOC: HO.HUSH 09:43
PROVIDERS: PCP Internal Medicine; Visit Provider Urology
DX: E29.1 Testicular hypofunction (principal)
CPT/HCPCS: 11980

== ENCOUNTER → 2024-09-02 09:42 | Outpatient (BNVA) | payer MEDICARE, SELFPAY | PROVIDERS: PCP Internal Medicine; Visit Provider Urology | DX: E29.1 Testicular hypofunction (principal) | CPT/HCPCS: 11980; J3490 ==

== ENCOUNTER 2024-09-24 09:35 | Outpatient (REF) | payer MEDICARE, SELFPAY ==
--- OUTSIDE RECORDS SUMMARY | 2024-09-24 10:51 | XMS_ITS ---
Author Organization [facility] Address [address] [place] [address] Care Team Providers Care Document Management Specialist Name Role Phone Richard Oleary MD Primary Care Provider Jas Sommer [phone] [facility] Entered Encounters Encounter Location Date Provider Diagnosis [facility] [address] [place] [address] 11/15/2023 Jas Love Plan Of Treatment Next Appt Details Provider Name:Jas Love , 02/20/2025 09:00:00 AM, [address] [place], [address], Progress Notes * Jaime HAMLINDOB:[birth year] (68 yo M)Acc No.[id number]:11/15/2023 Patient:?Jaime Hamlin :1955???Age:68 Y???Sex:Male Address:[address] [facility] [place], [address] * true * Date:? Generated for Printi ng/Faxing/eTransmitting on:?09/24/2024 10:51 AM EDT
--- OUTSIDE RECORDS SUMMARY | 2024-09-24 10:51 | XMS_ITS | Encounter Summary ---
Author Organization [employer] Address [address] [facility] 7 [place] [address] Care Team Providers Care Broadcasting Equipment Mechanic Name Role Phone Jeanna Oleary MD Primary Care Provider [phone] Estefanía Cervantes PharmD Unavailable [phone] Encounter Details Date Type Department Care Team ([facility] st Contact Info) Description 01/29/2024 Orders Only [facility] CHC MED & PEDS [address] [place], [place] [phone] Jeanna Oleary MD [address] [place] [address] Class 3 severe obesity due to excess calories without serious comorbidity with body mass index (BMI) of 40.0 to 44.9 in adult (CMS/HCC) (Primary Dx); Type 2 diabetes mellitus with hyperglycemia, with long-term current use of insulin ([facility]) Social History Tobacco Use Types Packs/Day Years Used Date Smoking Tobacco: Former Cigarettes Smokeless Tobacco: Never Alcohol Use Standard Drinks/Week Comments Yes 3 (1 standard drink = 0.6 oz pur e alcohol) Depression Answer Date Recorded Patient Health Questionnaire-9 Score 0 11/23/2022 Housing Stability Answer Date Recorded What is your housing situation today? I have danielle conrad 02/21/[address] you li [...] Info) Description 01/26/2025 9:00 AM EDT Telemedicine [facility] CHC MED & PEDS [address] [place], [place] [phone] Estefanía Cervantes PharmD [address] [place] [address] documented as of this encounter Visit Diagnoses Diagnosis Class 3 severe obesity due to excess calories without serious comorbidity with body mass index (BMI) of 40.0 to 44.9 in adult- Primary Type 2 diabetes mellitus with hyperglycemia, with long-term current use of insulin ([facility]) documented in this encounter Additional Health Concerns Assessment Noted Time PHQ-9 Depression Total Score: 0 11/24/19 23 10:27 AM EDT documented as of this encounter Care Teams Broadcasting Equipment Mechanic Relationship Specialty Start Date End Date Jeanna Oleary MD [address] [place], [place] [phone] PCP - General Internal Medicine 12/19/16 Estefanía Cervantes PharmD [address] [place], [place] [phone] Pharmacist Internal Medicine 06/03/24 documented as of this encounter
--- OUTSIDE RECORDS SUMMARY | 2024-09-24 10:51 | XMS_ITS | Encounter Summary ---
Author Organization [employer] Address [address] [facility] 7t [place] [address] Care Team Providers Care Casino Controller Name Role Phone Jeanna Oleary MD Primary Care Provider [phone] Estefanía Cervantes PharmD Unavailable [phone] Encounter Details Date Type Department Care Team ([facility] st Contact Info) Description 09/05/2023 Orders Only [facility] CHC MED & PEDS [address] [place], [place] [phone] Jeanna Oleary MD [address] [place] [address] Hyperkalemia (Primary Dx); Type 2 diabetes mellitus with hyperglycemia, with long-term current use of insulin ([facility]); Erectile disorder Social History Tobacco Use Types [...] [facility] [address] [place], [place] [phone] Estefanía Cervantes, PharmD [address] [place], [place] [phone] Scheduled Orders Name Type Priority Associated Diagnoses [...] Testosterone, Total 98(A) 250 - 1100 ng/dL [facility] Comment:Men with clinically significant hypogonadalsymptoms and testosterone values repeatedly inthe range of the 200-300 ng/dL or less, maybenefit from testosterone treatment afteradequate risk and benefits counseling.For additional information, please refer tohttp://education.[employer]faq/GybcqBsjngdxwfvvcFEESQNBQN223(This link is being provided for informational/educational purposes only.)This test was developed and its analytical performancecharacteristics have been determined by [employer], [place]. It hasnot been cleared or approved by the U.S. Food and DrugAdministration. This assay has been validated pursuantto the CLIA regulations and is used for clinicalpurposes. Testosterone, Free 14.7(A) 35.0 - 155.0 pg/mL [facility] Comment:This test was develo ped and its analytical performancecharacteristics have been determined by [employer] [place], [place]. It hasnot been cleared or approved by the U.S. Food and DrugAdministration. This assay has been validated pursuantto the CLIA regulations and is used for clinicalpurposes.THIS TEST WAS PERFORMED AT:[employer]/[facility] [place] [address]ZAEIYXSLEONORA MCNEIL MD,PHD Blood Venous blood specimen / Unknown 10/03/2023 12:52 PM EDT 10/03/2023 4:32 PM EDT Jeanna Oleary MD LAB BLOOD ORDERABLES Final Result [facility] [address] [place] [address] [phone] documented in this encounter Visit Diagnoses Diagnosis Hyperkalemia- Primary Hyperpotassemia Type 2 diabetes mellitus with hyperglycemia, with long-term current use of insulin ([facility]) Erectile disorder documented in this encounter Additional Health Concerns Assessment Noted Time PHQ-9 Depression Total Score: 0 11/24/19 23 10:27 AM EDT documented as of this encounter Care Teams Casino Controller Relationship Specialty Start Date End Date Jeanna Oleary MD [address] [place] [address] PCP - General Internal Medicine 12/19/16 Estefanía Cervantes PharmD [address] [place] [address] Pharmacist Internal Medicine 06/03/24 documented as of this encounter
--- OUTSIDE RECORDS SUMMARY | 2024-09-24 10:51 | XMS_ITS | Encounter Summary ---
Author Organization [employer] Address [address] [facility] 7t [place] [address] Care Team Providers Care Idea Worker Name Role Phone Jeanna Oleary MD Primary Care Provider [phone] Estefanía Cervantes PharmD Unavailable [phone] Encounter Details Date Type Department Care Team ([facility] st Contact Info) Description 01/01/2024 Orders Only [facility] CHC MED & PEDS [address] [place], [place] [phone] Jeanna Oleary MD 505 [place] [address] Type 2 diabetes mellitus with hyperglycemia, with long-term current use of insulin ([facility]) (Primary Dx) Social History Tobacco Use [...] Info) Description 01/26/2025 9:00 AM EDT Telemedicine [facility] MED & PEDS [address] [place] [address] Estefanía Cervantes PharmD [address] [place] [address] documented as of this encounter Visit Diagnoses Diagnosis Type 2 diabetes mellitus with hyperglycemia, with long-term current use of insulin ([facility])- Primary documented in this encounter Additional Health Concerns Assessment Noted Time PHQ-9 Depression Total Score: 0 11/24/19 23 10:27 AM EDT documented as of this encounter Care Teams Idea Worker Relationship Specialty Start Date End Date Jeanna Oleary MD [address] [place] [address] PCP - General Internal Medicine 12/19/16 Estefanía Cervantes PharmD [address] [place], [place] [phone] Pharmacist Internal Medicine 06/03/24 documented as of this encounter
--- OUTSIDE RECORDS SUMMARY | 2024-09-24 10:51 | XMS_ITS | Encounter Summary ---
Author Organization [employer] Address [address] [place] [address] 7 [place] [address] Care Team Providers Care Licensed Mental Health Professional Name Role Phone Jeanna Oleary MD Primary Care Provider [phone] Estefanía Cervantes PharmD Unavailable [phone] Reason for Referral * Consultation (Routine) - Closed Specialty Diagnoses / Procedures Referred By Contac t Referred To Contact Cardiology Diagnoses Atrial fibrillation with rapid ventricular response (CMS/HCC) Jeanna Oleary MD [address] [place] [address] Phone: tel: fax: Erasmo Daily MD [address] [place] [address] Phone: tel: fax: Referral ID Status Reason Start Date Expiration Date V isits Requested Visits Authorized [id number] Closed Specialty Services Required 03/20/2024 03/20/2025 1 1 Encounter Details Date Type Department Care Team (Late st Contact Info) Description 03/20/2024 Orders Only [facility] CHC MED & PEDS [address] [place], [place] [phone] Jeanna Oleary MD [address] [place] [address] Atrial fibrillation with rapid ventricular response (CMS/HCC) [...] Description 01/26/2025 9:00 AM EDT Telemedicine [facility] MED [facility] PEDS [address] [place] [address] Estefanía Cervantes, PharmD [address] [place] [address] Scheduled Referrals Name Type Priority Associated Diagnoses [...] documented as of this encounter Care Teams Licensed Mental Health Professional Relationship Specialty Start Date End Date Jeanna Oleary MD [address] [place] [address] PCP - General Internal Medicine 12/19/16 Estefanía Cervantes PharmD [address] [place] [address] Pharmacist Internal Medicine 06/03/24 documented as of this encounter
--- OUTSIDE RECORDS SUMMARY | 2024-09-24 10:51 | XMS_ITS | Encounter Summary ---
Author Organization [employer] Address [address] [facility] 7t [place] [address] Care Team Providers Care Hand Stitcher Name Role Phone Jeanna Oleary MD Primary Care Provider [phone] Estefanía Cervantes PharmD Unavailable [phone] Encounter Details Date Type Department Care Team ([facility] st Contact Info) Description 06/16/2024 Orders Only [facility] CHC MED & PEDS [address] [place], [place] [phone] Jeanna Oleary MD [address] [place] [address] Social History Tobacco Use Types Packs/Day Years [...] AM EDT documented as of this encounter Functional Status * Over the past 2 weeks, how often have you been bothered by any of the following problems? Question Answer Date of Assessment Author Patient Health Questionnaire-2 Score 3 06/07 10:59 AM Мария Sánchez [place] * Little interest or pleasure in doing things Answer Date of Assessment Author Nearly every day 06/16/2024 10:59 AM Мария Sánchez [place] * Feeling down, depressed, or hopeless Answer Date of Assessment Author Not at all 06/16/2024 10:59 AM Karley Sánchez [place] * Trouble falling or staying asleep, or sleeping too much Answer Date of Assessment Author Not at all 06/16/2024 10:59 AM Karley Sánchez [place] * Feeling tired or having little energy Answer Date of Assessment Author Not at all 06/16/2024 10:59 AM Karley Sánchez [place] * Poor appetite or overeating Answer Date of Assessment Author Not at all 06/16/2024 10:59 AM Karley Sánchez [place] * Feeling bad about yourself - or that you are a failure or have let yourself or your family down Answer Date of Assessment Author Not at all 06/16/2024 10:59 AM Karley Sánchez [place] * Trouble concentrating on things, such as reading the newspaper or watching television Answer Date of Assessment Author Not at all 06/16/2024 10:59 AM Karley Sánchez [place] * Moving or speaking so slowly that other people could have noticed? Or the opposite - being so fidgety or restless that you have been moving around a lot more than usual. Answer Date of Assessment Author Not at all 06/16/2024 10:59 AM Karley Sánchez MA * Thoughts that you would be better off or hurting yourself in some way Answer Date of Assessment Author Not at all 06/16/2024 10:59 AM Karley Sánchez [place] * Patient Health Questionnaire-9 Score Answer Date of Assessment Author 3 06/16/2024 10:59 AM Karley Sánchez [place] * How difficult have these problems made it for you to do your work, take care of things at home, or get along with other people? Answer Date of Assessment Author Not difficult at all 06/16/2024 10:59 AM Мария Gunter [place] documented as of this encounter Plan of Treatment Upcoming Encounters Date Type Department Care Team (Late st Contact Info) Description 01/26/2025 9:00 AM EDT Telemedicine [facility] MED & PEDS [address] [place] [address] Estefanía Cervantes PharmD [address] [place] [address] documented as of this encounter Visit Diagnoses Not on filedocumented in this encounter Additional Health Concerns Assessment Noted Time PHQ-9 Depression Total Score: 3 06/16/19 10:59 AM EST documented as of this encounter Care Teams Hand Stitcher Relationship Specialty Start Date End Date Jeanna Oleary MD [address] [place] [address] PCP - General Internal Medicine 12/19/16 Estefanía Cervantes PharmD [address] [place] [address] Pharmacist Internal Medicine 06/03/24 documented as of this encounter
--- OUTSIDE RECORDS SUMMARY | 2024-09-24 10:51 | XMS_ITS | Encounter Summary ---
Author Organization [employer] Address [address] [facility] 7t [place] [address] Care Team Providers Care Textile Conversion Manager Name Role Phone Jeanna Oleary MD Primary Care Provider [phone] Estefanía Cervantes PharmD Unavailable [phone] Encounter Details Date Type Department Care Team ([facility] st Contact Info) Description 11/07/2023 Orders Only [facility] CHC MED & PEDS [address] [place], [place] [phone] Jeanna Oleary MD [address] [place] [address] Type 2 diabetes mellitus with hyperglycemia, with long-term current use of insulin ([facility]) (Primary Dx) Social History Tobacco Use Types [...] 01/26/2025 9:00 AM EDT Telemedicine [facility] MED & PEDS [address] [place] [address] Estefanía Cervantes PharmD [address] [place] [address] documented as of this encounter Visit Diagnoses Diagnosis Type 2 diabetes mellitus with hyperglycemia, with long-term current use of insulin ([facility])- Primary documented in this encounter Additional Health Concerns Assessment Noted Time PHQ-9 Depression Total Score: 0 11/24/19 23 10:27 AM EDT documented as of this encounter Care Teams Textile Conversion Manager Relationship Specialty Start Date End Date Jeanna Oleary MD [address] [place] [address] PCP - General Internal Medicine 12/19/16 Estefanía Cervantes PharmD [address] [place], [place] [phone] Pharmacist Internal Medicine 06/03/24 documented as of this encounter
--- OUTSIDE RECORDS SUMMARY | 2024-09-24 10:51 | XMS_ITS | Encounter Summary ---
Author Organization [employer] Address [address] [place] [address] 7 [place] [address] Care Team Providers Care Supervisor Inspection Name Role Phone Jeanna Oleary MD Primary Care Provider [phone] Estefanía Cervantes PharmD Unavailable [phone] Reason for Referral * Consultation (Routine) - Closed Specialty Diagnoses / Procedures Referred By Contac t Referred To Contact Endocrinology Diagnoses Hypogonadism male Jeanna Oleary MD [address] [place] [address] Phone: tel: fax: [facility] Endocrinology [address] [place] [address] Phone: tel: fax: Referral ID Status Reason Start Date Expiration Date V isits Requested Visits Authorized [id number] Closed Specialty Services Required 10/11/2023 10/10/2024 1 1 Encounter Details Date Type Department Care Team (Late st Contact Info) Description 10/11/2023 Orders Only [facility] CHC MED & PEDS [address] [place] [address] Jeanna Oleary MD [address] [place], [place] [phone] Hypogonadism male (Primary Dx) Social History Tobacco [...] Info) Description 01/26/2025 9:00 AM EDT Telemedicine [facility] CHC MED & PEDS [address] [place] [address] Estefanía Cervantes, PharmD [address] [place] [address] Scheduled Referrals Name Type Priority Associated Diagnoses [...] Testosterone, Total 94(A) 250 - 1100 ng/dL [facility] Comment:Men with clinically significant hypogonadalsymptoms and testosterone values repeatedly inthe range of the 200-300 ng/dL or less, maybenefit from testosterone treatment afteradequate risk and benefits counseling.For additional information, please refer tohttp://education.[employer]/faq/FkmnwRwzvjszcbdkpIXKXFYQLZ292(This link is being provided for informational/educational purposes only.)This test was developed and its analytical performancecharacteristics have been determined by [employer] [place], [place]. It hasnot been cleared or approved by the U.S. Food and DrugAdministration. This assay has been validated pursuantto the CLIA regulations and is used for clinicalpurposes.THIS TEST WAS PERFORMED AT:[employer] [place] [address]IPVKRRCLEONORA MCNEIL MD,PHD Blood Venous blood specimen / Unknown 10/16/2023 2:12 PM EDT 10/16/2023 5:54 PM EDT us Jeanna Oleary MD LAB BLOOD ORDERABLES Final Result [facility] [address] [place] [address] [phone] documented in this encounter Visit Diagnoses Diagnosis Hypogonadism male- Primary Other testicular hypofunction documented in this encounter Additional Health Concerns Assessment Noted Time PHQ-9 Depression Total Score: 0 11/24/19 23 10:27 AM EDT documented as of this encounter Care Teams Supervisor Inspection Relationship Specialty Start Date End Date Jeanna Oleary MD [address] [place] [address] PCP - General Internal Medicine 12/19/16 Estefanía Cervantes PharmD [address] [place] [address] Pharmacist Internal Medicine 06/03/24 documented as of this encounter
--- OUTSIDE RECORDS SUMMARY | 2024-09-24 10:51 | XMS_ITS | Encounter Summary ---
Author Organization [employer] Address 75 [facility] 7t [place] [address] Care Team Providers Care Deportation Officer Name Role Phone Jeanna Oleary MD Primary Care Provider [phone] Estefanía Cervantes PharmD Unavailable [phone] Encounter Details Date Type Department Care Team ([facility] st Contact Info) Description 09/20/2023 Orders Only [facility] MED & PEDS [address] [place], [place] [phone] Jeanna Oleary MD [address] [place] [address] Type 2 diabetes mellitus with hyperglycemia, with long-term current use of insulin ([facility]) (Primary Dx) Social History Tobacco Use [...] 01/26/2025 9:00 AM EDT Telemedicine [facility] MED & PEDS [address] [place] [address] Estefanía Cervantes PharmD [address] [place] [address] documented as of this encounter Visit Diagnoses Diagnosis Type 2 diabetes mellitus with hyperglycemia, with long-term current use of insulin ([facility])- Primary documented in this encounter Additional Health Concerns Assessment Noted Time PHQ-9 Depression Total Score: 0 11/24/19 23 10:27 AM EDT documented as of this encounter Care Teams Deportation Officer Relationship Specialty Start Date End Date Jeanna Oleary MD [address] [place] [address] PCP - General Internal Medicine 12/19/16 Estefanía Cervantes PharmD [address] [place], [place] [phone] Pharmacist Internal Medicine 06/03/24 documented as of this encounter
--- OUTSIDE RECORDS SUMMARY | 2024-09-24 10:51 | XMS_ITS | Encounter Summary ---
Author Organization [employer] Address 75 [facility] 7 [place] [address] Care Team Providers Care Contract Processor Name Role Phone Jeanna Oleary MD Primary Care Provider [phone] Estefanía Cervantes PharmD Unavailable [phone] Reason for Visit * Reason Comments Med Refill Encounter Details Date Type Department Care Team ([facility] st Contact Info) Description 09/14/2023 Refill [facility] CHC MED & PEDS [address] [place], [place] [phone] Jeanna Oleary MD [address] [place] [address] Type 2 diabetes mellitus without complications (CMS/HCC) [...] Info) Description 01/26/2025 9:00 AM EDT Telemedicine [facility] CHC MED & PEDS [address] [place] [address] Estefanía Cervantes PharmD [address] [place] [address] documented as of this encounter Visit Diagnoses Diagnosis Type 2 diabetes mellitus without complications (CMS/HCC) documented in this encounter Additional Health Concerns Assessment Noted Time PHQ-9 Depression Total Score: 0 11/24/19 23 10:27 AM EDT documented as of this encounter Care Teams Contract Processor Relationship Specialty Start Date End Date Jeanna Oleary MD [address] [place] [address] PCP - General Internal Medicine 12/19/16 Estefanía Cervantes PharmD [address] [place] [address] Pharmacist Internal Medicine 06/03/24 documented as of this encounter
--- OUTSIDE RECORDS SUMMARY | 2024-09-24 10:51 | XMS_ITS | Encounter Summary ---
Author Organization [email or web address] Address 75 [facility] 7 [place] [address] Care Team Providers Care Bottom Precipitator Operator Name Role Phone Jeanna Oleary MD Primary Care Provider [phone] Estefanía Cervantes PharmD Unavailable [phone] Encounter Details Date Type Department Care Team ([facility] st Contact Info) Description 12/04/2023 Orders Only [facility] CHC MED & PEDS [address] [place], [place] [phone] Jeanna Oleary MD [address] [place] [address] Class 3 severe obesity due to excess calories without serious comorbidity with body mass index (BMI) of 40.0 to 44.9 in adult (CMS/HCC) (Primary Dx); Type 2 diabetes mellitus with hyperglycemia, with long-term current use of insulin ([facility]) Social History Tobacco Use Types Packs/Day [...] Info) Description 01/26/2025 9:00 AM EDT Telemedicine [facility] CHC MED & PEDS [address] [place], [place] [phone] Estefanía Cervantes PharmD 230 [place] [address] documented as of this encounter Visit Diagnoses Diagnosis Class 3 severe obesity due to excess calories without serious comorbidity with body mass index (BMI) of 40.0 to 44.9 in adult- Primary Type 2 diabetes mellitus with hyperglycemia, with long-term current use of insulin ([facility]) documented in this encounter Additional Health Concerns Assessment Noted Time PHQ-9 Depression Total Score: 0 11/24/19 23 10:27 AM EDT documented as of this encounter Care Teams Bottom Precipitator Operator Relationship Specialty Start Date End Date Jeanna Oleary MD [address] [place], [place] [phone] PCP - General Internal Medicine 12/19/16 Estefanía Cervantes PharmD [address] [place], [place] [phone] Pharmacist Internal Medicine 06/03/24 documented as of this encounter
--- OUTSIDE RECORDS SUMMARY | 2024-09-24 10:51 | XMS_ITS | Encounter Summary ---
Author Organization [employer] Address 75 [facility] 7t [place] [address] Care Team Providers Care Valuation Consultant Name Role Phone Jeanna Oleary MD Primary Care Provider [phone] Estefanía Cervantes PharmD Unavailable [phone] Reason for Visit * Reason Onset Date Comments Referral 11/13/2023 Encounter Details Date Type Department Care Team ([facility] st Contact Info) Description 11/13/2023 Telephone [facility] MEDICINE [address] [place] [address] Jeanna Oleary MD [address] [place] [address] Referral Social History Tobacco Use Types Packs/Day [...] 11/14/2023 10:06 AM EDT Referral faxed to [facility] as requested. * Telephone Encounter - Gene Kumari - 11/13/2023 2:59 PM EDT Tc from pt requesting for Podiatry referral to be sent over to [facility] in [place] due to location being easier. documented in this encounter Plan of Treatment Upcoming Encounters Date Type Department Care Team (Late st Contact Info) Description 01/26/2025 9:00 AM EDT Telemedicine [facility] CHC MED & PEDS [address] [place] [address] Estefanía Cervantes, PharmD [address] [place] [address] documented as of this encounter Visit Diagnoses Not on filedocumented in this encounter Additional Health Concerns Assessment Noted Time PHQ-9 Depression Total Score: 0 11/24/19 23 10:27 AM EDT documented as of this encounter Care Teams Valuation Consultant Relationship Specialty Start Date End Date Jeanna Oleary MD [address] [place] [address] PCP - General Internal Medicine 12/19/16 Estefanía Cervantes, Gianni [address] [place] [address] Pharmacist Internal Medicine 06/03/24 documented as of this encounter
--- OUTSIDE RECORDS SUMMARY | 2024-09-24 10:52 | XMS_ITS | Clinical Summary ---
Author Organization [facility] Address [address] [place] [address] Phone Care Team Providers Care Circulating Process Inspector Name Role Phone Jeanna Oleary MD Primary Care Provider [phone] Allergies Active Allergy Reactions Criticality Noted Date [...] NEGATIVE [place] Date 3 12/23/22 [place] Stool specimen (specimen) Rectal contents / Unknown 12/25/2022 2:33 PM EDT 12/25/2022 2:33 PM EDT Filiberto Canales MD LAB BODY FLUIDS AND STOOLS ORD ERABLES Final Result [place] from Last 3 Months or Most Recently Relevant to Health Maintenance Insurance [facility] Medicare [facility] Medicare Care Teams Circulating Process Inspector Relationship Specialty Start Date End Date Jeanna Oleary MD PCP - General 05/17/20
--- OUTSIDE RECORDS SUMMARY | 2024-09-24 10:52 | XMS_ITS ---
Author Organization [facility] kumar Agness Address [address] [place] [address] Care Team Providers Care Dynamics Ax Solution Architect Name Role Phone Richard Oleary MD Primary Care Provider Jas Sommer Unavailable [phone] Allergies No Known Allergies REASON FOR VISIT [...] Type 2 diabetes mellitus with peripheral angiopathy (547621137) Type 2 diabetes mellitus with diabetic peripheral angiopathy without gangrene (E11.51) Active confirmed Q7(A), Q8(2B), Q9(1B,2C) Problem Acquired hammer toe of right foot (2752023696593 105) Other hammer toe(s) (acquired), right foot (M20.41) Active confirmed Problem Acquired hammer toe of left foot (8751864327577 103) Other hammer toe(s) (acquired), left foot (M20.42) Active confirmed Vital Signs Height 5 ft 10 in in 02/22/2024 Weight 243 lbs 02/22/2024 BMI 34.86 kg/m2 02/22/2024 Blood pressure systolic 128 mm Hg 02/22/20 24 Blood pressure diastolic 80 mm Hg 024 Encounters Encounter Location Date Provider Diagnosis [facility] [address] [address] 02/22/2024 Jas Ivan Pain in left foot [...] Name:Jas Love , 02/20/2025 09:00:00 AM, [address] [place] [address], [phone], Progress Notes * Jaime HAMLINDOB:[birth year] (68 yo M)Acc No.[id number]:02/22/2024 Progress Notes Patient:?Jaime HAMLIN Provider:?Jas Love DPM :1955???Age:68 Y???Sex:Male Giovanni e:02/22/2024 Address:[address] [place], [place] [id number] Pcp:Richard Oleary MD Subjective: * Chief Complaints: [...] INSTRUCTIONS.pdf (DIABETIC FOOT CARE INSTRUCTIONS.pdf)?? * Procedure Codes:?06260 X-RAY EXAM OF LEFT FOOT 3V, Modifiers: [...] Love DPM Date:?2023 Generated for Mervat lowry/Darek/eTransmodessa on:?09/24/2024 10:51 AM EDT History and Physical Notes * [...]
--- OUTSIDE RECORDS SUMMARY | 2024-09-24 10:52 | XMS_ITS | Patient Health Record ---
Author Organization [facility] Address [address] [facility] [place] [address] Care Team Providers Care Cat Operator Name Role Phone Richard Oleary MD Primary Care Provider Jas Sommer Unavailable [phone] Allergies No Known Allergies Results Component Value [...] Problem Acquired hammer toe of right foot (9091984993433 105) Other hammer toe(s) (acquired), right foot (M20.41) Active confirmed Problem Acquired hammer toe of left foot (0107489376946 103) Other hammer toe(s) (acquired), left foot (M20.42) Active confirmed Problem Type 2 diabetes mellitus with peripheral angiopathy (688026171) Type 2 diabetes mellitus with diabetic peripheral angiopathy without gangrene (E11.51) Active confirmed Q7(A), Q8(2B), Q9(1B,2C) Vital Signs Blood pressure diastolic 80 mm Hg 02/22/2024 Height 5 ft 10 in in 02/22/2024 Blood pressure systolic 128 mm Hg 02/22/2024 Weight 243 lbs 02/22/2024 BMI 34.86 kg/m2 02/22/2024 Encounters Encounter [facility] Date [facility] [address] 02/22/2024 Jas Love Pain in left foot [...] foot M20.[facility] [address] 11/15/2023 Jas Love Assessments Encounter Date Diagnosis [...] Name:Jas Sutton Ivan , 02/20/2025 09:00:00 AM, [address] [place] [address], [id number], Insurance Providers Payer Name Payer Address Payer Phone Subscriber Number Group Number Insured Name Patient Relationship to Insured Coverage Start Date Coverage End Date Medicare National Govt Sv[employer] [address] [place] [address] [id number] Jaime Hamlin Self - patient is the insured 7 [employer] [address] [place] [address] [id number] Jaime Hamlin Self - patient is the insured Medical (General) History Medical History History ICD Code covid-19 Diabetic Heart disease High blood pressure Kidney disease Reflux ( GERD) Stomach ulcer Surgical History Surgery Date(Month/Year) Gall bladder removal
--- OUTSIDE RECORDS SUMMARY | 2024-09-24 10:52 | XMS_ITS | Encounter Summary ---
Author Organization [employer] Address [address] [place] [address] 7 [place] [address] Care Team Providers Care Tennis Centre Manager Name Role Phone Jeanna Oleary MD Primary Care Provider [phone] Estefanía Cervantes PharmD Unavailable [phone] Reason for Referral * Consultation (Routine) - Authorized Specialty Diagnoses / Procedures Referred By Contac t Referred To Contact Gastroenterology Diagnoses Other cirrhosis of liver (CMS/HCC) Jeanna Oleary MD [address] [place] [address] Phone: tel: fax: Linda Shah MD [address] [place] [address] 3[address] [place] [address] Phone: tel: fax: Referral ID Status Reason Start Date Expiration Date Visits Requested Visits Authorized [id number] Authorized Specialty Services Required 08/20/2024 08/20/2025 1 1 Encounter Details Date Type Department Care Team (Late st Contact Info) Description 08/20/2024 Orders Only [facility] CHC MED & PEDS [address] [place], [place] [phone] Jeanna Oleary MD [address] [place] [address] Other cirrhosis of liver (CMS/HCC) (Primary Dx) [...] Info) Description 01/26/2025 9:00 AM EDT Telemedicine [facility] MED & PEDS [address] [place] [address] Estefanía Cervantes, PharmD [address] [place], [place] [phone] Scheduled Referrals Name Type Priority Associated Diagnoses [...] documented as of this encounter Care Teams Tennis Centre Manager Relationship Specialty Start Date End Date Jeanna Oleary MD [address] [place] [address] PCP - General Internal Medicine 12/19/16 Estefanía Cervantes PharmD [address] [place] [address] Pharmacist Internal Medicine 06/03/24 documented as of this encounter
--- OUTSIDE RECORDS SUMMARY | 2024-09-24 10:52 | XMS_ITS | Encounter Summary ---
Author Organization [employer] Address [address] [place] [address] 7 [place] [address] Care Team Providers Care Track Walker Name Role Phone Jeanna Oleary MD Primary Care Provider [phone] Estefanía Cervantes PharmD Unavailable [phone] Reason for Visit * Reason Comments Med Refill Encounter Details Date Type Department Care Team (Late Contact Info) Description 07/04/2022 Refill [facility] MEDICINE [address] [place] [address] Jeanna Oleary MD [address] [place], [place] [phone] Mixed simple and mucopurulent chronic bronchitis (CMS/HCC) [...] Info) Description 01/26/2025 9:00 AM EDT Telemedicine [facility] CHC MED & PEDS [address] [place], [place] [phone] Estefanía Cervantes, PharmD [address] [place] [address] documented as of this encounter Visit Diagnoses Diagnosis Mixed simple and mucopurulent chronic bronchitis (CMS/HCC)- Primary Other chronic bronchitis Type 2 diabetes mellitus with hyperglycemia, with long-term current use of insulin (CMS/HCC) documented in this encounter Care Teams Track Walker Relationship Specialty Start Date End Date Jeanna Oleary MD [address] [place] [address] PCP - General Internal Medicine 12/19/16 Estefanía Cervantes PharmD [address] [place] [address] Pharmacist Internal Medicine 06/03/24 documented as of this encounter
--- OUTSIDE RECORDS SUMMARY | 2024-09-24 10:52 | XMS_ITS ---
Author Organization [facility] Address [address] [place] [address] Care Team Providers Care Culinary Worker Name Role Phone Richard Oleary MD Primary Care Provider Jas Sommer Unavailable [phone] Encounters Encounter Location Date Provider Diagnosis [address] [address] 02/15/2024 Jas Love Plan Of Treatment Next Appt Details Provider Name:Jas Love , 02/20/2025 09:00:00 AM, [address] [place], [address], Progress Notes * Jaime HAMLINDOB:[birth year] (69 yo M)Acc No.[id number]:02/15/2024 Progress Notes Patient:?Jaime HAMLIN Provider:?Jas Love DPM :1955???Age:68 Y???Sex:Male Giovanni e:02/15/2024 Address:[address] [place] [address] [facility] [id number] Pcp:Richard Oleary MD Subjective: * Chief Complaints: [...] Love DPM Date:?2023 Generated for Mervat lowry/Darek/Nicky on:?09/24/2024 10:51 AM EDT
--- OUTSIDE RECORDS SUMMARY | 2024-09-24 10:52 | XMS_ITS | Encounter Summary ---
Author Organization [employer] Address [address] [facility] 7t [place] [address] Care Team Providers Care Rehabilitation Liaison Name Role Phone Jeanna Oleary MD Primary Care Provider [phone] Estefanía Cervantes PharmD Unavailable [phone] Encounter Details Date Type Department Care Team (Late st Contact Info) Description 07/11/2024 Orders Only [facility] MEDICINE [address] [place] [address] Jeanna Oleary MD [address] [place] [address] Hepatomegaly (Primary Dx); Primary osteoarthritis of other [...] [facility] MED & PEDS [address] [place] [address] Etsefanía Cervantes, PharmD [address] [place] [address] Scheduled Orders Name Type Priority Associated Diagnoses [...] EDT Narrative 08/20/2024 10:08 AM EDT ? [facility] ?[address] ?[place] [address] ? Ultrasound Report ? Signed ? Patient: Demears,Jaime J ?MR#: [id number] ?? 263 ? : 1955 ?Acct:[id number] ? Age/Sex: 69 / M ?ADM Date: 08/20/24 ? Loc: HO.US ? Attending Dr: Jeanna Oleary MD ? Ordering Physician: Jeanna Oleary MD ?? Date of Service: 08/20/24 ?? Procedure(s): US abdomen wyatt w elastography ?? Accession Number(s): [id number] ? cc: Jeanna Oleary MD ? EXAMINATION: [...] ??Nigel Gustafson MD ??08/20/2024 10:05 AM EDT ?? RP ? Dictated By: ?Nigel Gustafson MD ? Signed By: ?<Electronically signed by Nigel Gustafson MD in OV> ?08/20/24 1005 ? DD/ 0912 ? TD/TT: 08/20/24 0935 ? Collection Systems Technician: ? Procedure Note Donjannie, Image - 08/20/2024 [place] [address] Ultrasound Report Signed Patient: Jaime Hamlin JMR#: [id number] : 5Acct:[id number] Age/Sex: 69 / MADM Date: 08/20/24 Loc: HO.US Attending Dr: Jeanna Oleary MD Ordering Physician: Jeanna Oleary MD Date of Service: 08/20/24 Procedure(s): US abdomen wyatt w elastography Accession Number(s): [id number] cc: Jeanna Oleary MD EXAMINATION: US ABDOMEN [...] 08/20/24 1005 DD/ 0912 TD/TT: 08/20/24 0935 Collection Systems Technician: us Jeanna Oleary MD IMG US PROCEDURES Final Res ult documented in this encounter Visit Diagnoses Diagnosis Hepatomegaly- Primary Primary osteoarthritis of other site documented in this encounter Additional Health Concerns Assessment Noted Time PHQ-9 Depression Total Score: 3 06/16/19 10:59 AM EST documented as of this encounter Care Teams Rehabilitation Liaison Relationship Specialty Start Date End Date Jeanna Oleary MD [address] [place] [address] PCP - General Internal Medicine 12/19/16 Estefanía Cervantes PharmD [address] [place] [address] Pharmacist Internal Medicine 06/03/24 documented as of this encounter
--- OUTSIDE RECORDS SUMMARY | 2024-09-24 10:52 | XMS_ITS | Clinical Summary ---
Author Organization [employer] Address [address] [facility] 7t [place] [address] Care Team Providers Care Academic Affairs Coordinator Name Role Phone Jeanna Oleary MD Primary Care Provider [phone] Estefanía Cervantes PharmD Unavailable [phone] Allergies Active Allergy Reactions Criticality Noted Date [...] cerave cream 80 g 5 024 Active nystatin (Mycostatin) 263143 UNIT/GM powder APPLY TO THE AFFECTED AREA(S) TWICE DAILY 60 g 2 024 Active Fluticasone-Salm eterol (Advair Diskus) 250-50 MCG/ACT aerosol powder USE ONE INHALATION TWICE DAILY. RINSE MOUTH AFTER USE 60 each 5 024 Active Continuous Glucose Dynamometer Repairer (FreeStyle Yahir 2 Stout) deviceIndication s:Type 2 diabetes mellitus with hyperglycemia, with long-term current use of insulin ([facility]) Scan sensor every 8 hours 1 each 024 Active OneTouch Ultra Test test stripIndications :Type 2 diabetes mellitus without complications (CMS/[facility]) TEST BLOOD SUGAR SIX TIMES DAILY 200 strip 5 Active Ostomy Supplies (Skin Prep Wipes) miscIndications: Type 2 diabetes mellitus with hyperglycemia, with long-term current use of insulin ([facility]) To wipe the skin prior to applying the sensor 2 times a month 50 each Active Spiriva HandiHaler 18 MCG inhalation capsuleIndicatio ns:Mixed simple and mucopurulent chronic bronchitis ([facility]) USE 1 CAPSULE FOR INHALATION ONCE A DAY DO NOT SWALLOW CAPSULE 30 capsule 6 Active BD Pen Needle Anny U/F 32G X 4 MM miscIndications: Type 2 diabetes mellitus with diabetic neuropathy, unspecified ([facility]) USE FOUR DAILY 90 each 024 2024 Active furosemide (Lasix) 20 MG tablet TAKE ONE TABLET TWICE DAILY 180 tablet 1 Active glipiZIDE (Glucotrol) 5 MG tabletIndication s:Type 2 diabetes mellitus with hyperglycemia, with long-term current use of insulin ([facility]) Take 1 tablet (5 mg) by mouth [...] DAILY WITH SUPPER 90 tablet 3 Active hydrOXYzine HCl (Atarax) 50 MG tabletIndication s:Pruritus, unspecified TAKE ONE TABLET FOUR TIMES DAILY 120 tablet 5 Active Ferrous Sulfate (iron) 325 (65 Fe) MG tablet TAKE ONE TABLET EVERY DAY 30 tablet 3 Active doxepin (SINEquan) 25 MG capsuleIndicatio ns:Pruritus, unspecified TAKE 1 TO 2 CAPSULES EVERY NIGHT AT BEDTIME 60 capsule 5 Active Continuous Glucose Sensor (FreeStyle Yahir 2 Plus Sensor) miscIndications: Type 2 diabetes mellitus with hyperglycemia, with long-term current use of insulin ([facility]) 1 each Once per day. 2 [...] 2 diabetes mellitus with diabetic neuropathy, unspecified ([facility]) TAKE ONE TABLET TWICE DAILY 180 tablet 2 025 Active rosuvastatin (Crestor) 40 MG tabletIndication s:Hypercholester olemia TAKE ONE TABLET BY MOUTH EVERY DAY 90 tablet 5 025 Active Mounjaro 15 MG/0.5ML solution auto-injectorInd ications:Class 3 severe obesity due to excess calories without serious comorbidity with body mass index (BMI) of 40.0 to 44.9 in adult,Type 2 diabetes mellitus with hyperglycemia, with long-term current use of insulin ([facility]) inject 15 mg's SUBCUTANEOUSLY ONCE WEEKLY 2 mL 3 025 Active Mounjaro 15 MG/0.5ML solution auto-injectorInd ications:Class 3 severe obesity due to excess calories without serious comorbidity with body mass index (BMI) of 40.0 to 44.9 in adult,Type 2 diabetes mellitus with hyperglycemia, with long-term current use of insulin ([facility]) INJECT 15 SUBCUTANEOUSLY ONCE A WEEK 2 mL 3 025 2024 Discontinued Active Problems Problem Noted Date [...] Encounters Date Type Department Care Team Description 09/03/2024 Refill [facility] [address] [place] [address] Jeanna Oleary MD Class 3 severe obesity due to excess calories without serious comorbidity with body mass index (BMI) of 40.0 to 44.9 in adult; Type 2 diabetes mellitus with hyperglycemia, with long-term current use of insulin (CMS/HCC) 08/20/2024 Orders Only [facility] [address] [place] [address] Jeanna Oleary MD Other cirrhosis of liver (CMS/HCC) (Primary Dx) 08/15/2024 Telephone [facility] [address] [place] [phone] Jeanna Oleary MD Call Back Request; Results 08/14/2024 Orders Only GENERIC EXTERNAL DATA DEPARTMENT Provider, Generic External Data 08/04/2024 9:30 AM EDT Telemedicine [facility] [address] [place] [address] Estefanía Cervantes PharmD Type 2 diabetes mellitus with hyperglycemia, with long-term current use of insulin (CMS/HCC) (Primary Dx) 07/15/2024 Telephone [facility] [address] [place] [address] Natalie Orr, RN Results; Lab Orders 07/15/2024 Telephone [facility] [address] [place] [address] Natalie Orr, bridge leverman Orders; Results 07/14/2024 Telephone [facility] [address] [place] [address] Jeanna Oleary MD Results 07/14/2024 Refill [facility] [address] [place] [address] Jeanna Oleary MD Hypercholesterolemia 07/11/2024 Orders Only [facility] [address] [place] [address] Jeanna Oleary MD Hepatomegaly (Primary Dx); Primary osteoarthritis of other site 07/01/2024 Refill [facility] [address] [place] [address] Jeanna Oleary MD Vitamin D deficiency; Type 2 diabetes mellitus with diabetic neuropathy, unspecified (CMS/HCC) from Last 3 Months Immunizations Immunization Administration Dates Next Due Hep B, adult [...] EDT Telemedicine [facility] [address] [place] [address] Estefanía Cervantes, PharmD [address] [place] [address] Health Maintenance Due Date Last Done Comments [...] 06/16/2025 06/16/2024 Depression Screening 06/16/2025 06/16/2024, 06/16/19 SDOH Screening 06/16/2025 06/16/2024 Tobacco Screening 06/16/2025 [...] patient's age to complete this topic Meningococcal B Vaccine Aged Out No l onger eligible based on patient's age to complete [...] hyperglycemia, with long-term current use of insulin ([facility]) LIPID PANEL, STANDARD Routine 11/26/2023 8:45 AM EDT COLONOSCOPY Routine 02/15/2023 HM DIABETES EYE EXAM Routine 02/07/2023 from Last 3 Months or Most Recently Relevant to Health Maintenance Results * US ABDOMEN WYATT W ELASTOGRAPHY (08/20/2024 9:12 AM EDT) Anatomical Region Laterality Modality Abdomen Ultrasound 08/20/2024 9:12 AM EDT Narrative 08/20/2024 10:08 AM EDT ? [facility] [facility] ?[address] ?[place] [address] ? Ultrasound Report ? Signed ? Patient: Demears,Jaime J ?MR#: [id number] ?? [id number] ? : 1955 ?Acct:[id number] ? Age/Sex: 69 / M ?ADM Date: 08/20/24 ? Loc: HO.US ? Attending Dr: Jeanna Oleary MD ? Ordering Physician: Jeanna Oleary MD ?? Date of Service: 08/20/24 ?? Procedure(s): US abdomen wyatt w elastography ?? Accession Number(s): [id number] ? cc: Jeanna Oleary MD ? EXAMINATION: [...] DD/ 0912 ? TD/TT: 08/20/24 0935 ? Vulcanizer Rubber Plate: ? Procedure Note Donotuseinterpreter, Image - 08/20/2024 [place] [address] Ultrasound Report Signed Patient: Jaime Hamlin R#: [id number] : 5Acct:[id number] Age/Sex: 69 / MADM Date: 08/20/24 Loc: HO.US Attending Dr: Jeanna Oleary MD Ordering Physician: Jeanna Oleary MD Date of Service: 08/20/24 Procedure(s): US abdomen wyatt w elastography Accession Number(s): [id number] cc: Jeanna Oleary MD EXAMINATION: US ABDOMEN [...] Gustafson MD Signed By: <Electronically signed by iNgel Gustafson MD in OV> 08/20/24 1005 DD/ 1 TD/TT: 08/20/24934 Vulcanizer Rubber Plate: us Jeanna Oleary MD IMG US PROCEDURES Final Res ult * Hepatitis A,B,C Profile (08/14/2024 12:02 PM EDT) Hepatitis A IgM Nonreactive Nonreactive [facility] Comment:IgM antibodies to MEDEL V not detected; does not exclude earlyacute or recovered HAV infection. ~Hepatitis B Surface Antibody NONREACTIVE Nonreactive [facility] Comment:Nonreactive: < 8.00 mIU/mL Hepatitis B Core Antibody Nonreactive Nonreactive [facility] Hepatitis C Antibody Nonreactive Nonreactive [facility] Comment:Antibodies to HCV no t detected; does not exclude early acuteHCV infection. Hepatitis B Surface Ag Negative Negative [facility] Blood Venous blood specimen / Unknown 08/14/2024 12:02 PM EDT 08/14/2024 1:22 PM EDT us Jeanna Oleary MD LAB BLOOD ORDERABLES Final Result [facility] [address] [place] [address] [phone] * Testosterone, Total, males (Adult), IA (08/14/2024 12:02 PM EDT) Testosterone, Total 316 250 - 1100 ng/dL [facility] Comment:Men with clinically significant hypogonadalsymptoms and testosterone values repeatedly inthe range of the 200-300 ng/dL or less, maybenefit from testosterone treatment afteradequate risk and benefits counseling.For additional information, please refer tohttp://education.[employer].com/faq/PifazXlnnjvpajlyfHVYFPPKCC047(This link is being provided for informational/educational purposes only.)This test was developed and its analytical performancecharacteristics have been determined by [employer] [place], [place]. It hasnot been cleared or approved by the U.S. Food and DrugAdministration. This assay has been validated pursuantto the CLIA regulations and is used for clinicalpurposes.THIS TEST WAS PERFORMED AT:[employer]/[id number] [place] [address]JERALCVLEONORA MCNEIL MD,PHD 08/14/2024 12:0 2 PM EDT 08/14/2024 1:22 PM EDT us Generic External Data Provider LAB BLOOD ORDERAB LES Final Result Performing Organization Address City/State/[facility] Co de Phone Number [facility] [address] [place] [phone] * US Abdomen Complete (07/10/2024 8:50 AM EST) Anatomical Region Laterality Modality Abdomen Ultrasound 07/10/2024 8:50 AM EST Narrative 07/11/2024 11:53 AM EST ? [facility] ?[address] [place] [address]. ?[place] [address] ? Ultrasound Report ? Signed ? Patient: Demears,Jaime J ?MR#: [id number] ?? 263 ? : 1955 ?Acct:[id number] ? Age/Sex: 68 / M ?ADM Date: 03/06/25 ? Loc: HO.US ? Attending Dr: Jeanna Oleary MD ? Ordering Physician: Jeanna Oleary MD ?? Date of Service: 07/10/24 ?? Procedure(s): US abdomen complete ?? Accession Number(s): [id number] ? cc: Jeanna Oleary MD ? EXAMINATION: [...] DD/ 0850 ? TD/TT: 07/10/24 0907 ? Vulcanizer Rubber Plate: ? Procedure Note Donjannie, Cassy - 07/11/[address] [address] Ultrasound Report Signed Patient: Jaime Hamlin JMR#: [id number] : 5Acct:[id number] Age/Sex: 68 / MADM Date: 07/10/24 Loc: HO.US Attending Dr: Jeanna Oleary MD Ordering Physician: Jeanna Oleary MD Date of Service: 07/10/24 Procedure(s): US abdomen complete Accession Number(s): [id number] cc: Jeanna Oleary MD EXAMINATION: US ABDOMEN [...] Nigel Gustafson MD 07/11/2024 11:50 AM EST RP Dictated By: Nigel Gustafson MD Signed By: <Electronically signed by Nigel Gustafson MD in OV> 07/11/24 1150 DD/ 0850 TD/TT: 07/10/24 0907 Vulcanizer Rubber Plate: us Jeanna Oleary MD IMG US PROCEDURES Final Res ult * (ABNORMAL) POCT HGB A1C (06/16/2024 10:39 AM EST) Hemoglobin A1C 6.6(A) 4.0 - 6.0 % QC Media Lot # [id number] Lot# Expiration Date [id number] Blood 06/16/2024 10:3 9 AM EST Jeanna Oleary MD POINT OF CARE TEST ENTER/ED IT ORDERABLES Final Result * (ABNORMAL) Lipid Panel, Standard (11/26/2023 8:45 AM EDT) Triglycerides 155(H) <150 mg/dL [facility] Comment:Desirable Triglyceri de: less than 150 mg/dLBorderline High Triglyceride 150-199 mg/dLHigh Triglyceride: 200-499 mg/dLVery High Triglyceride: greater than or equal to 5OO mg/dL Cholesterol 99 <200 mg/dL [facility] Comment:Desirable Cholestero l: less than 200 mg/dLBorderline High Cholesterol: 200-239 mg/dLHigh Cholesterol: greater than 239 mg/dL LDL Cholesterol Calculated 32 <100 mg/dL [facility] Comment:Desirable LDL: less than 100 mg/dLNear Optimal/Above Optimal LDL: 110- 129 mg/dLBorderline High LDL: 130-159 mg/dLHigh LDL: 160-189 mg/dLVery High LDL: greater than or equal to 190 mg/dL HDL Cholesterol 36(L) >40 mg/dL [facility] Comment:Desirable HDL: great er than 40 mg/dL Note: This HDL assay may give artificially low results in patients with liver disease. 11/26/2023 8:45 AM EDT 11/26/2023 8:45 AM EDT us Generic External Data Provider LAB BLOOD ORDERAB LES Final Result [facility] [address] [place] [address] [phone] * (ABNORMAL) Colonoscopy (02/15/2023) Anatomical Region Laterality Modality Endoscopy Narrative 02/15/2023 Diverticulosis of sigmoid colon. Internal hemorrhoids. Done by Dr Kirby Lomax. Repeat Colonoscopy in 5 years. us Jeanna Oleary MD ENDOSCOPY PROCEDURE ORDERAB LES Final Result * Diabetes Eye Exam (02/07/2023) [facility] Signature Eye Exam Normal Normal Narrative PrabhakarМария garcia [place] - 02/07/2023 No diabetic retinopathy us Jeanna Oleary MD HEALTH MAINTENANCE Final Re sult from Last 3 Months or Most Recently Relevant to Health Maintenance Insurance [facility] MEDICARE ADVANTAGE HMO Care Teams Academic Affairs Coordinator Relationship Specialty Start Date End Date Jeanna Oleary MD [address] [place] [phone] PCP - General Internal Medicine 12/19/16 Estefanía Cervantes PharmD [address] [place] [phone] Pharmacist Internal Medicine 06/03/24
[2024-09-28 15:38] LABS: Testosterone, Total 653 ng/dL (250-1100)
== END 2024-09-24 09:36 | disposition home or self-care (01) ==
LOC: HO.HMGCLDS 09:35
PROVIDERS: PCP Internal Medicine; Visit Provider Urology
DX: E29.1 Testicular hypofunction (principal)
CPT/HCPCS: 36415; 84403

== ENCOUNTER 2024-10-09 11:02 | Outpatient (REF) | payer MEDICARE, SELFPAY ==
--- OUTSIDE RECORDS SUMMARY | 2024-10-09 13:06 | XMS_ITS | Encounter Summary ---
Author Organization [employer] Address [address] [facility] 7t [place] [address] Care Team Providers Care Telemetry Registered Nurse Name Role Phone Jeanna Oleary MD Primary Care Provider [phone] Estefanía Cervantes PharmD Unavailable [phone] Encounter Details Date Type Department Care Team ([facility] st Contact Info) Description 09/05/2023 Orders Only [facility] [address] [place], [place] [phone] Jeanna Oleary MD [address] [place] [address] Hyperkalemia (Primary Dx); Type 2 diabetes mellitus with hyperglycemia, with long-term current use of insulin ([facility]); Erectile disorder Social History Tobacco [...] Care Team (Late st Contact Info) Description 12/29/2024 11:30 AM EDT Office Visit [facility] [address] [place] [address] Jeanna Oleary MD [address] [place] [address] 01/26/2025 9:00 AM EDT Telemedicine [facility] [address] [place], [place] [phone] Estefanía Cervantes, PharmD [address] [place] [address] Scheduled Orders Name Type Priority Associated Diagnoses [...] Testosterone, Total 98(A) 250 - 1100 ng/dL [facility] Comment:Men with clinically significant hypogonadalsymptoms and testosterone values repeatedly inthe range of the 200-300 ng/dL or less, maybenefit from testosterone treatment afteradequate risk and benefits counseling.For additional information, please refer tohttp://education.[employer]/faq/Do[email or web address](This link is being provided for informational/educational purposes only.)This test was developed and its analytical performancecharacteristics have been determined by [employer] [place]. It hasnot been cleared or approved by the U.S. Food and DrugAdministration. This assay has been validated pursuantto the CLIA regulations and is used for clinicalpurposes. Testosterone, Free 14.7(A) 35.0 - 155.0 pg/mL [facility] Comment:This test was develo ped and its analytical performancecharacteristics have been determined by [place]. It hasnot been cleared or approved by the U.S. Food and DrugAdministration. This assay has been validated pursuantto the CLIA regulations and is used for clinicalpurposes.THIS TEST WAS PERFORMED AT:[employer] [id number] [place] [address]HLAHIXJLEONORA MCNEIL MD,PHD Blood Venous blood specimen / Unknown 10/03/2023 12:52 PM EDT 10/03/2023 4:32 PM EDT Jeanna Oleary MD LAB BLOOD ORDERABLES Final Result [facility] [address] [place] [address] [phone] documented in this encounter Visit Diagnoses Diagnosis Hyperkalemia- Primary Hyperpotassemia Type 2 diabetes mellitus with hyperglycemia, with long-term current use of insulin ([facility]) Erectile disorder documented in this encounter Additional Health Concerns Assessment Noted Time PHQ-9 Depression Total Score: 0 11/24/19 23 10:27 AM EDT documented as of this encounter Care Teams Telemetry Registered Nurse Relationship Specialty Start Date End Date Jeanna Oleary MD [address] [place] [phone] PCP - General Internal Medicine 12/19/16 Estefanía Cervantes PharmD [address] [place] [phone] Pharmacist Internal Medicine 06/03/24 documented as of this encounter
[2024-10-09 13:42] LABS: Hematocrit 41.3 % (42.0-52.0); Hemoglobin 13.5 g/dl (14.0-18.0); Mean Corpuscular HGB Conc 32.7 g/dl (31.0-36.0); Mean Corpuscular Hemoglobin 26.8 pg (27.0-33.0); Mean Corpuscular Volume 81.9 fL (80.0-98.0); Mean Platelet Volume 10.5 fL (9.4-12.4); Platelet Count 191 X10*3/uL (160-400); Red Blood Count 5.04 X10*6/uL (4.60-5.80); Red Cell Distribution Width 17.8 % (11.0-16.0); White Blood Count 4.7 X10*3/uL (4.8-10.8)
[2024-10-09 14:41] LABS: Anion Gap 14 (12-20); Blood Urea Nitrogen 21 mg/dL (9-16); Calcium 10.1 mg/dL (8.4-10.2); Carbon Dioxide 24 mmol/L (22-29); Chloride 104 mmol/L (96-108); Estimated Glomerular Filt Rate > 60; Glucose Random 167 mg/dL (60-115); Potassium 4.6 mmol/L (3.3-5.1); Sodium 137 mmol/L (135-145)
== END 2024-10-09 11:03 | disposition home or self-care (01) ==
LOC: HO.HMGCLDS 11:02
PROVIDERS: PCP Internal Medicine; Visit Provider Internal Medicine Hypertension Specialist
DX: N18.9 Chronic kidney disease, unspecified (principal); E87.5 Hyperkalemia
CPT/HCPCS: 36415; 80048; 85027

== ENCOUNTER 2024-10-13 09:29 | Outpatient (AMB) | payer MEDICARE, SELFPAY ==
--- NOTE | 2024-10-13 09:37 | HO.NEPHOV_ITS ---
Vital Signs 10/13/24 09:39 Height 5 ft 10 in Weight 191 lb 2 oz BMI 27.4 BP 106/60 Blood Pressure Location Lt brachial Position Sitting Pulse 83 Pulse Source Pulse Oximeter Pulse Oximetry (%) 94 Oxygen Delivery Method Room Air Intake Visit Reasons: 6 Month f/u LVM Green Chain Off Bearer Required: No Accompanied by: Spouse Allergies oxycodone [OXYCODONE] Adverse Reaction (Intermediate, Verified 10/13/24 09:39) HALLUCINATIONS, DIZZINESS simvastatin Adverse Reaction (Intermediate, Verified 10/13/24 09:39) myalgias elevated CPK Medication List - Last Reconciled 10/13/24 by Filiberto Canales MD blood sugar diagnostic As directed cholecalciferol (vitamin D3) 25 mcg PO DAILY doxepin 1 - 2 caps PO BEDTIME fexofenadine 180 mg PO DAILY flash glucose sensor (FreeStyle Yahir 2 Sensor kit) As directed gabapentin 800 mg PO TID hydroxyzine HCl 50 mg PO DAILY insulin syringe-needle U-100 As directed losartan 25 mg PO .evening metformin 1,000 mg PO BID metoprolol succinate ER 25 mg PO DAILY omeprazole 40 mg PO BID pen needle, diabetic As directed rivaroxaban (Xarelto) 20 mg PO QPM rosuvastatin 40 mg PO DAILY testosterone (Testopel) 75 mg implant ONCE tirzepatide (Mounjaro) 15 mg subcut QWEEK HPI Comments Details: Charlie is a 67-year-old man with a history of longstanding hypertension obesity and CKD. He had some leg ulcers which have resolved. He continues have each with rash which has not changed after holding the Lasix 06/11/23; Doing well. NO new issues Rash is better 10/08/23 ;Maunjaro has been added 04/07/24 ;Doing well; Lost 35 lbs with maunjaro 10/13/24 69-year-old male presenting with chronic kidney disease. He has a medical history that includes long-standing essential hypertension and type 2 diabetes mellitus. The patient's kidney function remains stable with a recent creatinine level at 1.14 mg/dL and potassium levels normalized. He reports significant weight loss through a diet and the medication Mounjaro, decreasing from 308 pounds to 190 pounds, contributing positively to the control of his blood pressure. His losartan dose was reduced to manage ckdpt-ocfk-emxprkqr blood pressure, with an adjustment for the administration in the evening instead of the morning. The patient has also consulted a urologist regarding hypogonadism. No other changes in medication were reported, and he denies symptoms of lightheadedness when standing or walking. [facility] Medical History (Updated 07/02/24 @ 14:07 by Erasmo Daily MD) PAF (paroxysmal atrial fibrillation) Hyperplastic polyps of stomach Anemia Atrial fibrillation Hypertension Hyperlipidemia Type 2 diabetes mellitus Respiratory failure with hypoxia and hypercapnia COPD (chronic obstructive pulmonary disease) Nocturnal hypoxemia TAE (obstructive sleep apnea) Obesity (BMI 30-39.9) Personal history of nicotine dependence Cervical disc herniation Erectile dysfunction Gynecomastia Hypogonadism in male Sialolithiasis of submandibular gland COVID-19 vaccine series completed Surgical History History of cardiac ablation for atrial fibrillation History of umbilical hernia repair History of vasectomy History of colonoscopy History of appendectomy History of uvulopalatopharyngoplasty History of repair of right rotator cuff History of right knee surgery History of cardioversion History of cervical discectomy History of esophagogastroduodenoscopy (EGD) H/O prior ablation treatment (04/09/20) History of penile implant History of cholecystectomy Family History Father No problems noted. Mother No problems noted. Social History Household Members: Spouse Housing: House Are you a primary direct support professional caregiver to a significant other at home: No Do you presently have visiting nurse or other home services: No Alcohol intake: current Alcohol intake frequency: a few times a month Alcohol type: beer Patient Tobacco Use Status: Former Tobacco user Tobacco use type: Cigarette Cigarette Packs Per Day: 2.5 Cigarettes Per Day: 50.0 Years Smoked: 40 Physical Exam Vital Signs: 10/13/24 BP 100/60 Sitting 90/60 - Standing Const General: comfortable; No acute distress Orientation/consciousness: patient oriented x3 Eyes General: appearance normal, both eyes and all related structures Visual Barboza: normal visual barboza by confrontation Neck Neck: Yes supple and Yes no JVD Resp Effort & Inspection: normal respiratory effort and respiratory effort not decreased Auscultation: rhonchi Cardio Palpation: no palpable S3 and no palpable S4 Heart sounds: no rubs GI Inspection: Yes normal to inspection Palpation (GI): Soft to palpation Percussion: Yes normal to percussion Auscultation: normal bowel sounds General: Yes no CVA tenderness Back/Spine/Pelvis Back: no CVA tenderness Skin General skin exam: no petechiae and no purpura Neuro General: patient oriented x3 and no focal motor deficits Extrem General: No clubbing and No edema Results Reviewed Nephrology Results: Hgb 13.5 g/dl (14.0-18.0) L 10/09/24 WBC 4.7 X10*3/uL (4.8-10.8) L 10/09/24 Plt Count 191 X10*3/uL (160-400) 10/09/24 Sodium 137 mmol/L (135-145) 10/09/24 Potassium 4.6 mmol/L (3.3-5.1) 10/09/24 Chloride 104 mmol/L (96-108) 10/09/24 Carbon Dioxide 24 mmol/L (22-29) 10/09/24 BUN 21 mg/dL (9-16) H 10/09/24 Creatinine 1.14 mg/dL (0.5-1.4) 10/09/24 Calcium 10.1 mg/dL (8.4-10.2) 10/09/24 Urine Creatinine 87.64 mg/dL 06/13/24 Assessment & Plan Assessment & Plan (1) Anemia: Code(s): D64.9 - Anemia, unspecified Category: Medical Plan: Primarily to iron deficiency. Hemoglobin is improving (2) CKD (chronic kidney disease): Code(s): N18.9 - Chronic kidney disease, unspecified Category: Medical Plan: charlie has stage II CKD. Mild bump in Cr to 1.14 Due to hypofusion from low BP DEcrease Losartan to 25 mg QD PM ( instead of AM) Keep Losartan due to proteinuria ( UPCR 514) Continue to avoid nephrotoxic agents and hypotension. (3) Hyperkalemia: Code(s): E87.5 - Hyperkalemia Category: Medical Plan: Under control Stay on low K diet Orders: Orders Basic Metabolic Panel 6 Months N18.9 - Chronic kidney disease, unspecified Creatinine Urine 6 Months N18.9 - Chronic kidney disease, unspecified Total Protein Urine Random 6 Months N18.9 - Chronic kidney disease, unspecified Coding Level of Care Code Est Pt Level 4 (87859) Diagnoses Anemia D64.9 CKD (chronic kidney disease) N18.9 Hyperkalemia E87.5
[2024-10-13 09:39] VITALS: BP 106/60; PULSE 83; O2SAT 94; BMI 27.4
--- OUTSIDE RECORDS SUMMARY | 2024-10-13 10:03 | XMS_ITS | Encounter Summary ---
Author Organization [employer] Address [address] [facility] 7t [place] [address] Care Team Providers Care Enrichment Teacher Name Role Phone Jeanna Oleary MD Primary Care Provider [phone] Estefanía Cervantes PharmD Unavailable [phone] Encounter Details Date Type Department Care Team ([facility] st Contact Info) Description 09/05/2023 Orders Only [facility] MED & PEDS [address] [place], [place] [phone] Jeanna Oleary MD [address] [place] [address] Hyperkalemia (Primary Dx); Type 2 diabetes mellitus with hyperglycemia, with long-term current use of insulin ([facility]); Erectile disorder Social History Tobacco Use Types [...] Description 12/29/2024 11:30 AM EDT Office Visit [facility] MED & PEDS [address] [place] [address] Jeanna Oleary MD [address] [place] [address] 01/26/2025 9:00 AM EDT Telemedicine [facility] MED & PEDS [address] [place], [place] [phone] Estefanía Cervantes, PharmD [address] [place] [address] Scheduled Orders Name Type Priority Associated Diagnoses [...] Testosterone, Total 98(A) 250 - 1100 ng/dL [facility] Comment:Men with clinically significant hypogonadalsymptoms and testosterone values repeatedly inthe range of the 200-300 ng/dL or less, maybenefit from testosterone treatment afteradequate risk and benefits counseling.For additional information, please refer tohttp://education.Edxact/faq/AhariMawmaudukmzmRKJASIFLC367(This link is being provided for informational/educational purposes only.)This test was developed and its analytical performancecharacteristics have been determined by [facility] [place]. It hasnot been cleared or approved by the U.S. Food and DrugAdministration. This assay has been validated pursuantto the CLIA regulations and is used for clinicalpurposes. Testosterone, Free 14.7(A) 35.0 - 155.0 pg/mL [facility] Comment:This test was develo ped and its analytical performancecharacteristics have been determined by [facility] [place]. It hasnot been cleared or approved by the U.S. Food and DrugAdministration. This assay has been validated pursuantto the CLIA regulations and is used for clinicalpurposes.THIS TEST WAS PERFORMED AT:[employer] [id number] [place] [address]PCTCWMULEONORA MCNEIL MD,PHD Blood Venous blood specimen / Unknown 10/03/2023 12:52 PM EDT 10/03/2023 4:32 PM EDT Jeanna Oleary MD LAB BLOOD ORDERABLES Final Result [facility] [address] [place] [address] [phone] documented in this encounter Visit Diagnoses Diagnosis Hyperkalemia- Primary Hyperpotassemia Type 2 diabetes mellitus with hyperglycemia, with long-term current use of insulin ([facility]) Erectile disorder documented in this encounter Additional Health Concerns Assessment Noted Time PHQ-9 Depression Total Score: 0 11/24/19 23 10:27 AM EDT documented as of this encounter Care Teams Enrichment Teacher Relationship Specialty Start Date End Date Jeanna Oleary MD [address] [place] [address] PCP - General Internal Medicine 12/19/16 Estefanía Cervantes PharmD [address] [place] [address] Pharmacist Internal Medicine 06/03/24 documented as of this encounter
== END 2024-10-13 09:51 | disposition home or self-care (01) ==
LOC: HO.HKA 09:30
PROVIDERS: PCP Internal Medicine; Visit Provider Internal Medicine Hypertension Specialist
DX: D64.9 Anemia, unspecified (principal); N18.9 Chronic kidney disease, unspecified; E87.5 Hyperkalemia
CPT/HCPCS: 99214

== ENCOUNTER → 2024-10-13 09:29 | Outpatient (BNVA) | payer MEDICARE, SELFPAY | PROVIDERS: PCP Internal Medicine; Visit Provider Internal Medicine Hypertension Specialist | DX: D64.9 Anemia, unspecified (principal); N18.9 Chronic kidney disease, unspecified; E87.5 Hyperkalemia | CPT/HCPCS: 99212 ==

== ENCOUNTER 2024-11-20 10:01 | Outpatient (REF) | payer MEDICARE, SELFPAY ==
--- OUTSIDE RECORDS SUMMARY | 2024-11-20 10:28 | XMS_ITS | Clinical Summary ---
Author Organization [facility] Address [address] [place] [address] Phone Care Team Providers Care Early Morning Babysitter Name Role Phone Jeanna Oleary MD Primary Care Provider [phone] Allergies Active Allergy Reactions Criticality Noted Date [...] Annual FOBT 12/26/2023 12/25/2022 Influenza Vaccine (#1) 2025 Hepatitis B Vaccine Aged Out 03/04/2018, [...] Most Recently Relevant to Health Maintenance Insurance [facility] Medicare [facility] Medicare Care Teams Early Morning Babysitter Relationship Specialty Start Date End Date Jeanna Oleary MD PCP - General 05/17/20
--- OUTSIDE RECORDS SUMMARY | 2024-11-20 10:28 | XMS_ITS | Patient Health Record ---
Author Organization [facility] Address [address] [place] [address] Care Team Providers Care Shearing Machine Tender Name Role Phone Richard Oleary MD Primary Care Provider Jas Sommer Unavailable [phone] Allergies No Known Allergies Results Component Value [...] Foot Deformity(M20.41,M20.42) , Preulcerative Skin Lesion(s)(L85.1) Wear Daily; Duration: 365 days 02/22/2024 Active Rosuvastatin Calcium Active [...] Problem Acquired hammer toe of right foot (1445639982277 105) Other hammer toe(s) (acquired), right foot (M20.41) Active confirmed Problem Acquired hammer toe of left foot (6138039154008 103) Other hammer toe(s) (acquired), left foot (M20.42) Active confirmed Problem Type 2 diabetes mellitus with peripheral angiopathy (728146207) Type 2 diabetes mellitus with diabetic peripheral angiopathy without gangrene (E11.51) Active confirmed Q7(A), Q8(2B), Q9(1B,2C) Vital Signs Blood pressure diastolic 80 mm Hg 02/22/2024 Height 5 ft 10 in in 02/22/2024 Blood pressure systolic 128 mm Hg 02/22/2024 Weight 243 lbs 02/22/2024 BMI 34.86 kg/m2 02/22/2024 Encounters Encounter Location Date Provider Diagnosis [facility] [place] [address] [place] [address] 02/22/2024 Jas Ivan Pain in left foot [...] 3V 02/22/2024 Next Appt Details Provider Name:Jas Love , 02/20/2025 09:00:00 AM, [address] [place] [address], [phone], Insurance Providers Payer Name Payer Address Payer Phone Subscriber Number Group Number Insured Name Patient Relationship to Insured Coverage Start Date Coverage End Date Medicare National Govt Svcs Inc [address] [facility] [place] [address] [id number] Jaime Hamlin Self - patient is the insured 7 Medex Blue [facility] [address] [place] [address] [id number] Jaime Hamlin Self - patient is the insured Medical (General) History Medical History History ICD Code covid-19 Diabetic Heart disease High blood pressure Kidney disease Reflux ( GERD) Stomach ulcer Surgical History Surgery Date(Month/Year) Gall bladder removal
--- OUTSIDE RECORDS SUMMARY | 2024-11-20 10:28 | XMS_ITS | Encounter Summary ---
Author Organization [employer] Address [address] [facility] 7t [place] [address] Care Team Providers Care Operation Research Analyst Name Role Phone Jeanna Oleary MD Primary Care Provider [phone] Estefanía Cervantes PharmD Unavailable [phone] Encounter Details Date Type Department Care Team ([facility] st Contact Info) Description 09/05/2023 Orders Only [facility] CHC MED & PEDS [address] [place], [place] [phone] Jeanna Oleary MD [address] [place] [address] Hyperkalemia (Primary Dx); Type 2 diabetes mellitus with hyperglycemia, with long-term current use of insulin ([facility]); Erectile disorder Social History Tobacco Use Types [...] Description 12/29/2024 11:30 AM EDT Office Visit [facility] MED & PEDS [address] [place] [address] Jeanna Oleary MD [address] [place] [address] 01/26/2025 9:00 AM EDT Telemedicine [facility] MED & PEDS [address] [place], [place] [phone] Estefanía Cervantes, PharmD [address] [place] [address] Scheduled Orders Name Type Priority Associated Diagnoses [...] Testosterone, Total 98(A) 250 - 1100 ng/dL [facility] Comment:Men with clinically significant hypogonadalsymptoms and testosterone values repeatedly inthe range of the 200-300 ng/dL or less, maybenefit from testosterone treatment afteradequate risk and benefits counseling.For additional information, please refer tohttp://education.WorldWinger/faq/TycwgApinzviighrdIKCOQOKYR693(This link is being provided for informational/educational purposes only.)This test was developed and its analytical performancecharacteristics have been determined by [facility] [place]. It hasnot been cleared or approved by the U.S. Food and DrugAdministration. This assay has been validated pursuantto the CLIA regulations and is used for clinicalpurposes. Testosterone, Free 14.7(A) 35.0 - 155.0 pg/mL [facility] Comment:This test was develo ped and its analytical performancecharacteristics have been determined by [facility] [place]. It hasnot been cleared or approved by the U.S. Food and DrugAdministration. This assay has been validated pursuantto the CLIA regulations and is used for clinicalpurposes.THIS TEST WAS PERFORMED AT:[employer] [id number] [place] [address]TELTPHELEONORA MCNEIL MD,PHD Blood Venous blood specimen / Unknown 10/03/2023 12:52 PM EDT 10/03/2023 4:32 PM EDT Jeanna Oleary MD LAB BLOOD ORDERABLES Final Result [facility] [address] [place] [address] [phone] documented in this encounter Visit Diagnoses Diagnosis Hyperkalemia- Primary Hyperpotassemia Type 2 diabetes mellitus with hyperglycemia, with long-term current use of insulin ([facility]) Erectile disorder documented in this encounter Additional Health Concerns Assessment Noted Time PHQ-9 Depression Total Score: 0 11/24/19 23 10:27 AM EDT documented as of this encounter Care Teams Operation Research Analyst Relationship Specialty Start Date End Date Jeanna Oleary MD [address] [place] [address] PCP - General Internal Medicine 12/19/16 Estefanía Cervantes PharmD [address] [place] [address] Pharmacist Internal Medicine 06/03/24 documented as of this encounter
== END 2024-11-20 10:02 | disposition home or self-care (01) ==
LOC: HO.HMGCLDS 10:01
PROVIDERS: PCP Internal Medicine; Visit Provider Urology
DX: E29.1 Testicular hypofunction (principal)
CPT/HCPCS: 36415; 84403

== ENCOUNTER 2024-11-27 15:06 | Outpatient (AMB) | payer MEDICARE, SELFPAY ==
--- OUTSIDE RECORDS SUMMARY | 2024-11-27 15:10 | XMS_ITS | Clinical Summary ---
Author Organization [facility] Address [address] [place] [address] Phone Care Team Providers Care Casting Machine Service Operator Name Role Phone Jeanna Oleary MD Primary Care Provider [phone] Allergies Active Allergy Reactions Criticality Noted Date [...] Recently Relevant to Health Maintenance Insurance [facility] Medicare [facility] Medicare Care Teams Casting Machine Service Operator Relationship Specialty Start Date End Date Jeanna Oleary MD PCP - General 05/17/20
--- OUTSIDE RECORDS SUMMARY | 2024-11-27 15:10 | XMS_ITS | Encounter Summary ---
Author Organization [employer] Address [address] [facility] 7t [place] [address] Care Team Providers Care Television Producer Name Role Phone Jeanna Oleary MD Primary Care Provider [phone] Estefanía Cervantes PharmD Unavailable [phone] Encounter Details Date Type Department Care Team ([facility] st Contact Info) Description 09/05/2023 Orders Only [facility] CHC MED & PEDS [address] [place], [place] [phone] Jeanna Oleary MD [address] [place] [address] Hyperkalemia (Primary Dx); Type 2 diabetes mellitus with hyperglycemia, with long-term current use of insulin ([facility]); Erectile disorder Social History Tobacco Use Types [...] Description 12/29/2024 11:30 AM EDT Office Visit [facility] MED & PEDS [address] [place] [address] Jeanna Oleary MD [address] [place] [address] 01/26/2025 9:00 AM EDT Telemedicine [facility] MED & PEDS [address] [place], [place] [phone] Estefanía Cervantes, PharmD [address] [place] [address] Scheduled Orders Name Type Priority Associated Diagnoses [...] Testosterone, Total 98(A) 250 - 1100 ng/dL [facility] Comment:Men with clinically significant hypogonadalsymptoms and testosterone values repeatedly inthe range of the 200-300 ng/dL or less, maybenefit from testosterone treatment afteradequate risk and benefits counseling.For additional information, please refer tohttp://education.[employer]faq/YllfrZrqggjqcjygdCNFBGCFYZ596(This link is being provided for informational/educational purposes only.)This test was developed and its analytical performancecharacteristics have been determined by [facility] [place]. It hasnot been cleared or approved by the U.S. Food and DrugAdministration. This assay has been validated pursuantto the CLIA regulations and is used for clinicalpurposes. Testosterone, Free 14.7(A) 35.0 - 155.0 pg/mL [facility] Comment:This test was develo ped and its analytical performancecharacteristics have been determined by [facility] [place]. It hasnot been cleared or approved by the U.S. Food and DrugAdministration. This assay has been validated pursuantto the CLIA regulations and is used for clinicalpurposes.THIS TEST WAS PERFORMED AT:[employer] [id number] [place] [address]HQSFEXPLEONORA MCNEIL MD,PHD Blood Venous blood specimen / Unknown 10/03/2023 12:52 PM EDT 10/03/2023 4:32 PM EDT Jeanna Oleary MD LAB BLOOD ORDERABLES Final Result [facility] [address] [place] [address] [phone] documented in this encounter Visit Diagnoses Diagnosis Hyperkalemia- Primary Hyperpotassemia Type 2 diabetes mellitus with hyperglycemia, with long-term current use of insulin ([facility]) Erectile disorder documented in this encounter Additional Health Concerns Assessment Noted Time PHQ-9 Depression Total Score: 0 11/24/19 23 10:27 AM EDT documented as of this encounter Care Teams Television Producer Relationship Specialty Start Date End Date Jeanna Oleary MD [address] [place] [address] PCP - General Internal Medicine 12/19/16 Estefanía Cervantes PharmD [address] [place] [address] Pharmacist Internal Medicine 06/03/24 documented as of this encounter
[2024-11-27 15:11] VITALS: BP 113/68; PULSE 70; O2SAT 95; BMI 26.3
--- NOTE | 2024-11-27 15:11 | A.OFFVIS_ITS ---
Vital Signs 11/27/24 15:11 Height 5 ft 10 in Weight 182 lb 15.739 oz BMI 26.3 BP 113/68 Blood Pressure Location Lt brachial Position Sitting Pulse 70 Pulse Source Pulse Oximeter Pulse Oximetry (%) 95 Oxygen Delivery Method Room Air Intake Visit Reasons: Obstructive sleep apnea Intake Note: pt is here for follow up an has some a lot of weight, Bag Making Machine Operator Required: No Allergies oxycodone (OXYCODONE) Adverse Reaction (Intermediate, Verified 11/27/24 15:36) HALLUCINATIONS, DIZZINESS simvastatin Adverse Reaction (Intermediate, Verified 11/27/24 15:36) myalgias elevated CPK Medication List - Last Reconciled 11/27/24 by Gerardo Cabrera MD blood sugar diagnostic As directed cholecalciferol (vitamin D3) 25 mcg PO DAILY doxepin 1 - 2 caps PO BEDTIME fexofenadine 180 mg PO DAILY flash glucose sensor (FreeStyle Yahir 2 Sensor kit) As directed gabapentin 800 mg PO TID hydroxyzine HCl 50 mg PO DAILY PRN insulin syringe-needle U-100 As directed losartan 25 mg PO .evening metformin 1,000 mg PO BID metoprolol succinate ER 25 mg PO DAILY omeprazole 40 mg PO BID pen needle, diabetic As directed rivaroxaban (Xarelto) 20 mg PO QPM rosuvastatin 40 mg PO DAILY testosterone (Testopel) 75 mg implant ONCE tirzepatide (Mounjaro) 15 mg subcut QWEEK Do you need a note to return to daycare/school/sports/work: No HPI HPI Obstructive sleep apnea: Details: THIS 69 YEARS OLD GENTLEMAN IS HERE FOR 6 MONTHS FOLLOW-UP FOLLOW-UP FOR HIS SLEEP APNEA WELL COPD HE USES CPAP VERY REGULARLY EVERY NIGHT UP TO 9 HOURS PER NIGHT AND SLEEPS GOOD. HE HAS NO ISSUE WITH THE CPAP MACHINE OR THE NASAL PILLOWS , WITH CHINSTRAP. HE HAS LOST SIGNIFICANT WEIGHT DOWN TO BMI 26 AND WAS HOPING THAT WE COULD DISCONTINUE THE CPAP. HOWEVER IT IS NOTICED THAT EVEN WITH THE USE OF CPAP, HE STILL HAS SOME RESIDUAL SLEEP APNEA WITH RESIDUAL AHI 8.6. 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 EXPLAINING TO HIM THAT HE WILL NEED TO USE CPAP PERMANENTLY. BREATHING ASHLEY REMAINS STABLE AND HE USES ALBUTEROL ONLY ONCE IN A WHILE, WHICH ACTUALLY HE HAS NOT NEEDED IN THE LAST 6 MONTHS [facility] Medical History PAF (paroxysmal atrial fibrillation) Hyperplastic polyps of stomach Anemia Atrial fibrillation Hypertension Hyperlipidemia Type 2 diabetes mellitus Respiratory failure with hypoxia and hypercapnia COPD (chronic obstructive pulmonary disease) Nocturnal hypoxemia TAE (obstructive sleep apnea) Obesity (BMI 30-39.9) Personal history of nicotine dependence Cervical disc herniation Erectile dysfunction Gynecomastia Hypogonadism in male Sialolithiasis of submandibular gland COVID-19 vaccine series completed Surgical History History of cardiac ablation for atrial fibrillation History of umbilical hernia repair History of vasectomy History of colonoscopy History of appendectomy History of uvulopalatopharyngoplasty History of repair of right rotator cuff History of right knee surgery History of cardioversion History of cervical discectomy History of esophagogastroduodenoscopy (EGD) H/O prior ablation treatment (04/09/20) History of penile implant History of cholecystectomy Family History Father No problems noted. Mother No problems noted. Social History Household Members: Spouse Housing: House Are you a primary care transition manager to a significant other at home: No Do you presently have visiting nurse or other home services: No Alcohol intake: current Alcohol intake frequency: a few times a month Alcohol type: beer Patient Tobacco Use Status: Former Tobacco user Tobacco use type: Cigarette Cigarette Packs Per Day: 2.5 Cigarettes Per Day: 50.0 Years Smoked: 40 Review of Systems Const All systems reviewed & are unremarkable except as noted in HPI and below Eyes Reports no additional complaints ENT Reports nasal congestion (Mild intermittent) Card Denies chest pain, Reports irregular heart rhythm, Reports leg edema (Mild) and Reports dyspnea on exertion Resp Reports as per HPI and Reports dyspnea on exertion GI Reports no additional complaints Reports no additional complaints Musc Reports back pain and Reports arthralgias Skin/Breast Reports rash (Anterior abdominal wall) Neuro Reports no additional complaints Psych Reports no additional complaints Physical Exam Vital Signs: Last Vital Signs Pulse 70 11/27/24 15:11 BP 113/68 11/27/24 15:11 Pulse Ox 95 11/27/24 15:11 Oxygen Delivery Method Room Air 11/27/24 15:11 BMI result Body Mass Index 26.3 HE HAS LOST SIGNIFICANT AMOUNT OF WEIGHT, CURRENTLY HE IS AT OPTIMAL WEIGHT OF BMI 26. Const General: comfortable, no acute distress, alert and awake Orientation/consciousness: patient oriented x3 HEENT Head: Yes normal to inspection General nose exam: No nasal polyps present and No nasal discharge present Face and sinus: Yes sinuses nontender Mouth: oropharynx normal Teeth and gingiva: dentures (UPPER) and other (HAS SIGNIFICANT DEGREE OF RETROGNATHIA OF THE LOWER JAW.) Throat: Yes posterior oropharynx normal Eyes General: appearance normal, both eyes and all related structures Neck Neck: Yes normal visual inspection, Yes no lymphadenopathy, Yes trachea midline and Yes no JVD Thyroid: Thyroid normal Chest Chest palpation & inspection: normal inspection of the chest, normal palpation of entire chest wall and no tenderness Resp Other: Percussion note not perceptible because of thick chest wall. Breath sounds are distant but equal on both sides. No wheezes rhonchi or crepitations Cardio Palpation: PMI not normal (Not palpable) Rate: regular rate Rhythm: regular rhythm Heart sounds: no gallops and no murmurs GI Palpation (GI): Soft to palpation, nontender, No hepatosplenomegaly present, no masses and Other GI palpation findings present (Abdomen is grossly obese and protuberant) Auscultation: normal bowel sounds Back/Spine/Pelvis Thoracic/Lumbar Spine: thoracic and lumbar spine normal to inspection and thoraco-lumbar ROM limited Skin General skin exam: dry skin and other (Few scattered, excoriations on the upper abdominal wall) Neuro General: patient oriented x3, No gait normal (Impaired due to arthritis, uses cane) and no focal motor deficits Cranial nerves: Yes CN's II-XII intact bilaterally Extrem General: Yes normal to inspection, Yes no calf tenderness and Yes edema (MILD PI TTING EDEMA) Psych Appearance: grossly normal and well kempt Speech and movement: Normal speech and movement present Results Reviewed Results Reviewed: COMPLIANCE REPORT FOR THE LAST 30 NIGHTS REVIEWED. HIS USAGE IS 100% AND AVERAGE USE IT PER NIGHT 9 HOURS 8 MINUTES. PRESSURE 12 CM RESIDUAL AHI 8.6 Assessment & Plan Assessment & Plan (1) TAE (obstructive sleep apnea): Comment: HAS H/O TAE ,compliant to CPAP + O2 at night. Air leak problem is resolved by use of chinstrap, with nasal pillows. He does have residual AHI 8.6, this may be due to suboptimal pressure. Code(s): G47.33 - Obstructive sleep apnea (adult) (pediatric) Category: Medical Plan: Explained to him that he needs to continue using CPAP at night. Pressure is increased to 14 cm . Advise that he should continue to use CPAP regularly with O2 2 L/minute (2) COPD (chronic obstructive pulmonary disease): Comment: HE IS KNOWN TO HAVE MODERATELY SEVERE OBSTRUCTIVE AIRWAY DISORDER BUT IT REMAINS WELL CONTROLLED. HIS BREATHING STATUS HAS DEFINITELY IMPROVED WITH SIGNIFICANT WEIGHT LOSS. Code(s): J44.9 - Chronic obstructive pulmonary disease, unspecified Category: Medical Plan: USE ALBUTEROL HFA 2 PUFFS Q 6 HOURS ONLY P.R.N. (3) Respiratory failure with hypoxia and hypercapnia: Comment: Chronic hypoventilation syndrome - improved with use of CPAP + O2 Code(s): J96.91 - Respiratory failure, unspecified with hypoxia; J96.92 - Respiratory failure, unspecified with hypercapnia Category: Medical Plan: CONTINUE USING CPAP WITH PRESSURE OF 14 CM AND O2 2 L/MINUTE. Coding Level of Care Code Est Pt Level 3 (13474) Diagnoses TAE (obstructive sleep apnea) G47.33 COPD (chronic obstructive pulmonary disease) J44.9 Respiratory failure with hypoxia and hypercapnia J96.91; J96.92
--- OUTSIDE RECORDS SUMMARY | 2024-11-27 15:11 | XMS_ITS | Patient Health Record ---
Author Organization [facility] Sofia[facility] Address [address] [place] [address] Care Team Providers Care Banquet Set Up Person Name Role Phone Richard Oleary MD Primary Care Provider Jas Sommer Unavailable [phone] Allergies No Known Allergies Results Component Value [...] Problem Acquired hammer toe of right foot (9677107692694 105) Other hammer toe(s) (acquired), right foot (M20.41) Active confirmed Problem Acquired hammer toe of left foot (6271460233643 103) Other hammer toe(s) (acquired), left foot (M20.42) Active confirmed Problem Type 2 diabetes mellitus with peripheral angiopathy (158756997) Type 2 diabetes mellitus with diabetic peripheral angiopathy without gangrene (E11.51) Active confirmed Q7(A), Q8(2B), Q9(1B,2C) Vital Signs Blood pressure diastolic 80 mm Hg 02/22/2024 Height 5 ft 10 in in 02/22/2024 Blood pressure systolic 128 mm Hg 02/22/2024 Weight 243 lbs 02/22/2024 BMI 34.86 kg/m2 02/22/2024 Encounters Encounter Location Date Provider Diagnosis [facility] [place] [address] [place] [address] 02/22/2024 Jas Ivan Pain in left foot [...] Provider Name:Jas Love , 02/20/2025 09:00:00 AM, [address] [place] [address], [phone], Insurance Providers Payer Name Payer Address Payer Phone Subscriber Number Group Number Insured Name Patient Relationship to Insured Coverage Start Date Coverage End Date Medicare National Govt Svcs Inc [address] [place] [address] [id number] Jaime Hamlin Self - patient is the insured 7 Medex Blue [facility] [address] [place] [address] [id number] Jaime Hamlin Self - patient is the insured Medical (General) History Medical History History ICD Code covid-19 Diabetic Heart disease High blood pressure Kidney disease Reflux ( GERD) Stomach ulcer Surgical History Surgery Date(Month/Year) Gall bladder removal
== END 2024-11-27 15:35 | disposition home or self-care (01) ==
LOC: HO.HPS 15:07
PROVIDERS: PCP Internal Medicine; Visit Provider Internal Medicine
DX: G47.33 Obstructive sleep apnea (adult) (pediatric) (principal); J44.9 Chronic obstructive pulmonary disease, unspecified; J96.91 Respiratory failure, unspecified with hypoxia; J96.92 Respiratory failure, unspecified with hypercapnia
CPT/HCPCS: 99213

== ENCOUNTER → 2024-11-27 15:06 | Outpatient (BNVA) | payer MEDICARE, SELFPAY | PROVIDERS: PCP Internal Medicine; Visit Provider Internal Medicine | DX: G47.33 Obstructive sleep apnea (adult) (pediatric) (principal); J44.9 Chronic obstructive pulmonary disease, unspecified; J96.91 Respiratory failure, unspecified with hypoxia; J96.92 Respiratory failure, unspecified with hypercapnia; Z99.89 Dependence on other enabling machines and devices; Z79.899 Other long term (current) drug therapy | CPT/HCPCS: 99212 ==

== ENCOUNTER 2024-12-02 08:48 | Outpatient (AMB) | payer MEDICARE, SELFPAY ==
--- NOTE | 2024-12-02 08:49 | MHC.OFFVIS ---
Intake Visit Reasons: Testopel insertion/labs Intake Note: Patient is present for TESTOPEL INSERTION Urology Medication:TESTOSTERONE, NAPROXEN Antibiotic Allergy:SIMVASTATIN Blood Thinner:RIVAROXABAN Supplier Quality Required: No Accompanied by: Self / Same As Patient Allergies oxycodone (OXYCODONE) Adverse Reaction (Intermediate, Verified 12/02/24 08:50) HALLUCINATIONS, DIZZINESS simvastatin Adverse Reaction (Intermediate, Verified 12/02/24 08:50) myalgias elevated CPK HPI Comments Details: Jaime is a pleasant male. He is a patient of Dr. Oleary. He is here for the following urologic conditions - hypogonadism - erectile dysfunction Here for testosterone pellet placement Has had good cyclic response over past 3 cycles. PSA now stabilized in target range. Discussed results Will check PSA and hematocrit at next visit 6 pellets placed Repeat lab work at 10 weeks Repeat placement at 12 weeks Labs 1st cycle 2wk 490 10wk 464 2nd 550 - 320 3rd 650 - 600 Has lost 95 lb from Mounjaro Erectile dysfunction 2 piece prosthetic Capsulation of bulb Would recommend replacement prosthetic once weight loss complete Low testosterone Previously failed injections and gel and patches Gel did not bring T high enough Injections painful Patches caused dermatitis Trial testosterone pellets [facility] Medical History PAF (paroxysmal atrial fibrillation) Hyperplastic polyps of stomach Anemia Atrial fibrillation Hypertension Hyperlipidemia Type 2 diabetes mellitus Respiratory failure with hypoxia and hypercapnia COPD (chronic obstructive pulmonary disease) Nocturnal hypoxemia TAE (obstructive sleep apnea) Obesity (BMI 30-39.9) Personal history of nicotine dependence Cervical disc herniation Erectile dysfunction Gynecomastia Hypogonadism in male Sialolithiasis of submandibular gland COVID-19 vaccine series completed Surgical History History of cardiac ablation for atrial fibrillation History of umbilical hernia repair History of vasectomy History of colonoscopy History of appendectomy History of uvulopalatopharyngoplasty History of repair of right rotator cuff History of right knee surgery History of cardioversion History of cervical discectomy History of esophagogastroduodenoscopy (EGD) H/O prior ablation treatment (04/09/20) History of penile implant History of cholecystectomy Family History Father No problems noted. Mother No problems noted. Social History Household Members: Spouse Housing: House Are you a primary personal care home administrator to a significant other at home: No Do you presently have visiting nurse or other home services: No Alcohol intake: current Alcohol intake frequency: a few times a month Alcohol type: beer Patient Tobacco Use Status: Former Tobacco user Tobacco use type: Cigarette Cigarette Packs Per Day: 2.5 Cigarettes Per Day: 50.0 Years Smoked: 40 Review of Systems Const Denies chills and Denies fever(s) Card Reports no additional complaints and Denies syncope Resp Denies cough GI Denies abdominal pain and Denies heartburn Reports as per HPI and Denies change in libido Neuro Denies syncope Psych Denies change in libido Endo Denies change in libido Physical Exam Const General: cooperative, healthy appearing, comfortable and no acute distress Orientation/consciousness: patient oriented x3 HEENT Face and sinus: Yes normal facial exam Mouth: moist mucous membranes Neck Neck: Yes normal visual inspection, Yes full ROM and Yes trachea midline Chest Chest palpation & inspection: normal inspection of the chest Resp Effort & Inspection: normal respiratory effort, able to speak in complete sentences and no respiratory distress GI Inspection: Yes normal to inspection Back/Spine/Pelvis Cervical Spine: normal cervical lordosis Thoracic/Lumbar Spine: thoracic and lumbar spine normal to inspection Skin General skin exam: no rashes or lesions noted Neuro General: patient oriented x3, gait normal, tone normal and moves all extremities Extrem General: Yes normal to inspection and Yes capillary refill normal Office Procedures AMB Testopel Details: Testopel Placement Pre Op Diagnosis - Low testosterone Post Op Diagnosis - Low Testosterone Procedure: Testopel Insertion Testopel was prepared for insertion. Six Testopel pellets were removed from the individual glass containers and placed in a sterile container. The patient was placed in right lateral position with right side down and left side up. The area over the [right] hip was cleaned with Betadine. A fenestrated drape was placed over the area. Lidocaine 2% was injected first as a skin wheal and then into the subcutaneous tissue directed in a fashion down towards the femur in the subcutaneous space to perform hydrodissection. The purpose of the injection is to numb the length of the trocar track. A 15 Blade scapel was used to make a puncture incision into the subcutaneous space. Trocar with sharp-ended stylet inserted through stab incision at a 45? angle and into the subcutaneous fat layer. The needle was flatten out and advanced leaving the pellet loading area exposed. 6 pellets were inserted using Adson forceps into the loading trocar in a V pattern. The blunt stylet was used to advance pellets into the tract while withdrawing the trocar - 4 pellets and 2 pellets placed in each arm of the V. Once completed the area was wiped with alchohol. The trocar insertion site was closed with multiple steristrips and a 2x2 gauze placed with a tegaderm dressing placed. CPT 05910 J3490 Subcutaneous Hormone Pellet Insertion: 43740 Subq Hormone Pellet Insertion Office Meds Testopel 75 mg implant pellet Performing Provider: Willard Srinivasan MD Performing Location: [facility] Administered by: Stefano Laguerre LPN on 12/02/24 09:00 Dose Route Admin Location Dispensed Lot Number Expiration Date [facility] Digital Field Service Technician 75 mg implant 6 ea Total Dispensed Waste 6 ea 0 % lidocaine HCl 20 mg/mL (2 %) injection solution Performing Provider: Willard Srinivasan MD Performing Location: [facility] Administered by: Stefano Laguerre LPN on 12/02/24 09:00 Dose Route Admin Location Dispensed Lot Number Expiration Date [place] Digital Field Service Technician 10 mL subcut 10 mL Total Dispensed Waste 10 mL 0 % Assessment & Plan Assessment & Plan (1) Hypogonadism in male: Code(s): E29.1 - Testicular hypofunction Category: Medical Plan Discussed dietary changes in face of weight loss Plan 10 week follow-up lab work Repeat implant 12 week Orders: Orders Prostate Specific Antigen 10 Weeks E29.1 - Testicular hypofunction AMB Testosterone Pellet Implant Today E29.1 - Testicular hypofunction, N52.9 - Male erectile dysfunction, unspecified Testosterone, Total 10 Weeks E29.1 - Testicular hypofunction Complete Blood Count no Diff 10 Weeks E29.1 - Testicular hypofunction Medications: Changed From testosterone (Testopel) 75 mg implant ONCE 6 ea 5RF To testosterone (Testopel) . 75 mg implant ONCE 6 ea 5RF Patient Instructions: This note is constructed using voice recognition software. While every effort has been made to ensure accuracy county extension agent errors may have been included. Imaging studies, laboratory and physical exam results were discussed and reviewed in detail. No major barriers to patient understanding were identified. An opportunity to ask questions regarding the treatment plan was provided. All questions were answered. The patient expressed understanding and agreement with the above treatment plan. The patient is aware they should contact our office by phone for worsening of their current condition or the appearance of new urologic symptoms. Compliance is encouraged with any medications and followup testing that is ordered. It is a privilege to participate in the urologic care of your patient. If you have any questions or concerns regarding treatment for the above conditions, or other urologic issues, please do not hesitate to contact me. The office telephone contact is [phone]. Sincerely, Dr Willard Srinivasan MD, [facility] - Urology Compassionate Specialist Care for the Genitourinary System Coding Level of Care Code Est Pt Level 3 (71684) Complex EM visit Add On G2211 Diagnoses Hypogonadism in male E29.1
--- OUTSIDE RECORDS SUMMARY | 2024-12-02 09:05 | XMS_ITS | Encounter Summary ---
Author Organization [employer] Address [address] [place] [address] Care Team Providers Care Architectural Draftsperson Name Role Phone Jeanna Oleary MD Primary Care Provider [phone] Estefanía Cervantes PharmD Unavailable [phone] Encounter Details Date Type Department Care Team ([facility] st Contact Info) Description 09/05/2023 Orders Only [facility] PEDS [address] [place], [place] [phone] Jeanna Oleary MD [address] [place] [address] Hyperkalemia (Primary Dx); Type 2 diabetes mellitus with hyperglycemia, with long-term current use of insulin ([facility]); Erectile disorder Social History Tobacco [...] 11:30 AM EDT Office Visit [facility] [address] [place] [address] Jeanna Oleary MD [address] [place] [address] 01/26/2025 9:00 AM EDT Telemedicine [facility] P[facility] [address] [place], [place] [phone] Estefanía Cervantes, PharmD [address] [place] [address] Scheduled Orders Name Type Priority Associated Diagnoses [...] Testosterone, Total 98(A) 250 - 1100 ng/dL [facility] Comment:Men with clinically significant hypogonadalsymptoms and testosterone values repeatedly inthe range of the 200-300 ng/dL or less, maybenefit from testosterone treatment afteradequate risk and benefits counseling.For additional information, please refer tohttp://education.Styky/faq/[email or web address](This link is being provided for informational/educational purposes only.)This test was developed and its analytical performancecharacteristics have been determined by [employer] [place]. It hasnot been cleared or approved by the U.S. Food and DrugAdministration. This assay has been validated pursuantto the CLIA regulations and is used for clinicalpurposes. Testosterone, Free 14.7(A) 35.0 - 155.0 pg/mL [facility] Comment:This test was develo ped and its analytical performancecharacteristics have been determined by [employer] [place]. It hasnot been cleared or approved by the U.S. Food and DrugAdministration. This assay has been validated pursuantto the CLIA regulations and is used for clinicalpurposes.THIS TEST WAS PERFORMED AT:[email or web address] [id number] [place] [address]THOODVULEONORA MCNEIL MD,PHD Blood Venous blood specimen / Unknown 10/03/2023 12:52 PM EDT 10/03/2023 4:32 PM EDT Jeanna Oleary MD LAB BLOOD ORDERABLES Final Result [facility] [address] [place] [address] [phone] documented in this encounter Visit Diagnoses Diagnosis Hyperkalemia- Primary Hyperpotassemia Type 2 diabetes mellitus with hyperglycemia, with long-term current use of insulin ([facility]) Erectile disorder documented in this encounter Additional Health Concerns Assessment Noted Time PHQ-9 Depression Total Score: 0 11/24/19 23 10:27 AM EDT documented as of this encounter Care Teams Architectural Draftsperson Relationship Specialty Start Date End Date Jeanna Oleary MD [address] [place] [address] PCP - General Internal Medicine 12/19/16 Estefanía Cervantes PharmD [address] [place] [address] Pharmacist Internal Medicine 06/03/24 documented as of this encounter
--- OUTSIDE RECORDS SUMMARY | 2024-12-02 09:05 | XMS_ITS | Clinical Summary ---
Author Organization [facility] Address [address] [place] [address] Phone Care Team Providers Care Engineering Faculty Name Role Phone Jeanna Oleary MD Primary Care Provider [phone] Allergies Active Allergy Reactions Criticality Noted Date [...] [facility] Medicare Care Teams Engineering Faculty Relationship Specialty Start Date End Date Jeanna Oleary MD PCP - General 05/17/20
--- OUTSIDE RECORDS SUMMARY | 2024-12-02 09:05 | XMS_ITS | Patient Health Record ---
Author Organization [facility] Address [address] [place] [address] Care Team Providers Care Indirect Fire Infantryman Name Role Phone Richard Oleary MD Primary Care Provider Jas Sommer Unavailable [phone] Allergies No Known Allergies Results Component Value [...] Problem Acquired hammer toe of right foot ([id number] 9105) Other hammer toe(s) (acquired), right foot (M20.41) Active confirmed Problem Acquired hammer toe of left foot ([id number] 9103) Other hammer toe(s) (acquired), left foot (M20.42) Active confirmed Problem Type 2 diabetes mellitus with diabetic peripheral angiopathy without gangrene (E11.51) Active confirmed Q7(A), Q8(2B), Q9(1B,2C) Vital Signs Blood pressure diastolic 80 mm Hg 02/22/2024 Height 5 ft 10 in in 02/22/2024 Blood pressure systolic 128 mm Hg 02/22/2024 Weight 243 lbs 02/22/2024 BMI 34.86 kg/m2 02/22/2024 Encounters Encounter Location Date Provider Diagnosis [facility] [address] [address] 02/22/2024 Jas Ivan Pain in left foot [...] Provider Name:Jas Love , 02/20/2025 09:00:00 AM, [address] [place] [address], [phone], Insurance Providers Payer Name Payer Address Payer Phone Subscriber Number Group Number Insured Name Patient Relationship to Insured Coverage Start Date Coverage End Date Medicare National Govt Sv[employer] [address] [facility] [place] [address] [id number] Jaime Hamlin Self - patient is the insured 7 [employer] [facility] [address] [place] [address] [id number] Jaime Hamlin Self - patient is the insured Medical (General) History Medical History History ICD Code covid-19 Diabetic Heart disease High blood pressure Kidney disease Reflux ( GERD) Stomach ulcer Surgical History Surgery Date(Month/Year) Gall bladder removal
== END 2024-12-02 09:22 | disposition home or self-care (01) ==
LOC: HO.HUSH 08:49
PROVIDERS: PCP Internal Medicine; Visit Provider Urology
DX: N52.9 Male erectile dysfunction, unspecified (principal); E29.1 Testicular hypofunction
CPT/HCPCS: 11980

== ENCOUNTER → 2024-12-02 08:48 | Outpatient (BNVA) | payer MEDICARE, SELFPAY | PROVIDERS: PCP Internal Medicine; Visit Provider Urology | DX: E29.1 Testicular hypofunction (principal) | CPT/HCPCS: 11980; J2003; J3490 ==

== ENCOUNTER → 2024-12-09 07:46 | Outpatient (REF) | payer MEDICARE, SELFPAY ==
--- OUTSIDE RECORDS SUMMARY | 2024-12-09 07:48 | XMS_ITS | Clinical Summary ---
Author Organization [facility] Address [address] [place] [address] Phone Care Team Providers Care Cambering Machine Operator Name Role Phone Jeanna Oleary MD Primary Care Provider [phone] Allergies Active Allergy Reactions Criticality Noted Date [...] Relevant to Health Maintenance Insurance [facility] Medicare [facility] Medicare Care Teams Cambering Machine Operator Relationship Specialty Start Date End Date Jeanna Oleary MD PCP - General 05/17/20
--- OUTSIDE RECORDS SUMMARY | 2024-12-09 07:48 | XMS_ITS | Encounter Summary ---
Author Organization [employer] Address [address] [place] [address] Care Team Providers Care Tool Shaper Setup Operator Name Role Phone Jeanna Oleary MD Primary Care Provider [phone] Estefanía Cervantes PharmD Unavailable [phone] Reason for Visit * Reason Onset Date Comments Med Refill 12/02/2024 Encounter Details Date Type Department Care Team ([facility] st Contact Info) Description 12/02/2024 Telephone [facility] MED & PEDS [address] [place], [place] [phone] Jeanna Oleary MD [address] [place] [address] Med Refill Social History Tobacco Use Types Packs/Day Years [...] encounter Miscellaneous Notes * Telephone Encounter - Kimberly Stout LPN - 12/02/2024 9:57 AM EDT Medication was sent to [facility] on 09/04/24 with 3 refills. * Telephone Encounter - Diogenes Mckeon - 12/02/2024 9:45 AM EDT TC from pt requesting medication refill. Medications needing refill : Mounjaro 15 MG/0.5ML solution auto-injector To be sent to: [facility] [place] - [address] [facility] documented in this encounter Plan of Treatment Upcoming Encounters Date Type Department Care Team (Late st Contact Info) Description 12/29/2024 11:30 AM EDT Office Visit [facility]ED[facility] [address] [place] [address] Jeanna Oleary MD [address] [place] [address] 01/26/2025 9:00 AM EDT Telemedicine [facility] [address] [place] [address] Estefanía Cervantes PharmD [address] [place] [address] documented as of this encounter Visit Diagnoses Not on filedocumented in this encounter Additional Health Concerns Assessment Noted Time PHQ-9 Depression Total Score: 3 06/16/19 25 10:59 AM EST documented as of this encounter Care Teams Tool Shaper Setup Operator Relationship Specialty Start Date End Date Jeanna Oleary MD [address] [place] [address] PCP - General Internal Medicine 12/19/16 Estefanía Cervantes, Gianni [address] [place] [address] Pharmacist Internal Medicine 06/03/24 documented as of this encounter
--- OUTSIDE RECORDS SUMMARY | 2024-12-09 07:48 | XMS_ITS | Patient Health Record ---
Author Organization [facility] Address [address] [facility] [facility] [place] [address] Care Team Providers Care Laundry Superintendent Name Role Phone Richard Oleary MD Primary Care Provider Jas Sommer Unavailable [phone] Allergies No Known Allergies Results Component Value [...] Problem Acquired hammer toe of right foot ([id number] 105) Other hammer toe(s) (acquired), right foot (M20.41) Active confirmed Problem Acquired hammer toe of left foot (0548511223133 103) Other hammer toe(s) (acquired), left foot (M20.42) Active confirmed Problem Type 2 diabetes mellitus with peripheral angiopathy (633555387) Type 2 diabetes mellitus with diabetic peripheral angiopathy without gangrene (E11.51) Active confirmed Q7(A), Q8(2B), Q9(1B,2C) Vital Signs Blood pressure diastolic 80 mm Hg 02/22/2024 Height 5 ft 10 in in 02/22/2024 Blood pressure systolic 128 mm Hg 02/22/2024 Weight 243 lbs 02/22/2024 BMI 34.86 kg/m2 02/22/2024 Encounters Encounter Location Date Provider Diagnosis [facility] [place] [address] [place] [address] 02/22/2024 Jas Ivan Pain in left foot [...] Provider Name:Jas Love , 02/20/2025 09:00:00 AM, [address] [place] [address], [phone], Insurance Providers Payer Name Payer Address Payer Phone Subscriber Number Group Number Insured Name Patient Relationship to Insured Coverage Start Date Coverage End Date Medicare National Govt Svcs Inc [address] [place] [address] [id number] Jaime Hamlin Self - patient is the insured 7 [employer] [facility] [address] [place] [address] [id number] Jaime Hamlin Self - patient is the insured Medical (General) History Medical History History ICD Code covid-19 Diabetic Heart disease High blood pressure Kidney disease Reflux ( GERD) Stomach ulcer Surgical History Surgery Date(Month/Year) Gall bladder removal
--- NOTE | 2024-12-09 07:53 | HM_ITS ---
Conclusion: 1. Patient was monitored for total period of 3 days 2. Baseline was normal sinus rhythm with average heart of 81 beats per minute 3. No significant pauses noted 4. Rare PACs and PVCs noted 5. One 3 beat sunil of nonsustained VT at 153 beats per minute 6. No patient reported events MTDD
--- NOTE | 2024-12-09 07:53 | CA_ITS ---
Transthoracic Echocardiogram Patient (Last, First, Middle): Jaime Hamlin J Gender: Male Date of : 1955 Age: 69 Procedure Date: 12/09/2024 Procedure Type: Transthoracic Echocardiogram Location: OP Height: 175. cm Weight: 81.65 kg BSA: 1.97 m2 Heart Rate: 73 bpm BP: 110 / 65 mmHg Forest Fire Prevention Manager: MALA Referring MD: Erasmo Daily MD Symptoms: I48.0 - Paroxysmal atrial fibrillation Study Quality: Technically Difficult w/Contrast ECG Rhythm: Sinus Conclusions: - The left ventricular systolic function is normal. The calculated ejection fraction is 68% by biplane method. - No obvious valvular pathology seen on this study. - There is mild dilatation of the ascending aorta measuring 4.10 cm. Findings Procedure Information Contrast agent, definity, is being given per protocol without apparent complications. The study quality is limited by patients body habitus. Left Ventricle Normal left ventricular cavity size. There is normal left ventricular wall thickness. The left ventricular systolic function is normal. The calculated ejection fraction is 68% by biplane method. There is no evidence of regional wall motion abnormalities. Diastolic function is normal for age. Right Ventricle Normal right ventricular cavity size and systolic function. Atria Both atria are normal in size. Aortic Valve The aortic valve was not well visualized. There is no aortic valve stenosis. There is no aortic valve regurgitation. Mitral Valve There is mild anterior mitral leaflet thickening. There is no mitral valve regurgitation. There is no mitral valve stenosis. Pulmonic Valve The pulmonic valve is likely normal. Tricuspid Valve There is trace tricuspid valve regurgitation. Tricuspid regurgitation envelope is inadequate for calculation of right ventricular systolic pressure. Great Vessels The aortic arch is normal in size. There is mild dilatation of the ascending aorta measuring 4.10 cm. Venous The inferior vena cava is normal in size and collapses greater than 50% with inspiration. Pericardium/Pleural There is no evidence of pericardial effusion. Prior Study Comparison No significant change compared to prior study dated: 11/28/2019. Recommendations, Care & Conclusions No obvious valvular pathology seen on this study. Measurements 2D Linear Measurements IVSd: 0.78 0.6-0.9/0.6-1.0 cm LVIDd: 4.75 3.9-5.3/4.2-5.9 cm LVIDd Index: 2.41 2.4-3.2/2.2-3.1 cm/m2 LVIDs: 3.09 2.0-3.6 cm LVPWd: 1.14 0.7-1.1 cm LA Diam: 3.90 2.7-3.8/3.0-4.0 cm LAIDs Index: 1.98 1.5-2.3 cm/m2 LV Mass: 197.57 67-162/88-224 g LV Mass Index: 100.29 43-95/49-115 g/m2 LVOT Diam: 2.30 3.0+(-)1.3 cm 2D Systolic Function EF 4C: 73.10 >55% EF 2C: 61.30 >55% EF BiP: 68.10 >55% Mitral Valve MV Pk E: 0.63 MV PK A: 0.70 MV Decel Time: 238.00 E/A: 0.90 E'Lateral: 12.00 E'Medial: 6.20 E/E' Med: 10.10 E/E' Lat: 5.20 PHT: 70.00 MVA PHT: 3.14 Decel Duval: 2.63 Aortic Valve AoV Pk Matthew: 1.18 AoV Mn Matthew: 0.85 AoV VTI: 0.23 AoV Pk Grad: 6.00 Aov Mn Grad: 3.00 ANNABEL Cont.VTI: 3.20 LVOT LVOT Pk Matthew: 0.86 LVOT Mn Matthew: 0.59 LVOT VTI: 0.18 LVOT Pk Grad: 3.00 LVOT Mn Grad: 2.00 LVOT Diam: 2.30 LVOT Area: 4.15 Diastolic Function MV Pk E: 0.63 MV Pk A: 0.70 E/A: 0.90 E'Medial: 6.20 E/E' Med: 10.10 E' Laterial: 12.00 E/E' Lat: 5.20 Right Ventricle TAPSE (mm): 21.40 TVS' Matthew: 12.00 Tricuspid Valve RA Press: 3.00 Great Vessels Aorta Sinus of Valsalva: 3.40 2.0-3.5 cm Ao Asc: 4.10 2.1-3.4 cm Ao Arch: 2.80 Pulmonary Valve PV Pk Matthew: 0.91 Peak PV Grad: 3.00 Updated in Other Vendor System with Status of Final Erasmo Daily MD electronically signed on 12/11/2024 3:56:47 PM with status of Final
== END ==
LOC: HO.CARD 07:46
PROVIDERS: PCP Internal Medicine; Visit Provider Internal Medicine
DX: I48.0 Paroxysmal atrial fibrillation (principal)
CPT/HCPCS: 93242; 93306; Q9957

== ENCOUNTER → 2024-12-09 07:53 | Outpatient (BNV) | payer MEDICARE, SELFPAY | PROVIDERS: PCP Internal Medicine; Visit Provider Internal Medicine | DX: I48.0 Paroxysmal atrial fibrillation (principal); I77.810 Thoracic aortic ectasia | CPT/HCPCS: 93306 ==

== ENCOUNTER 2024-12-31 12:34 | Outpatient (AMB) | payer MEDICARE, SELFPAY ==
--- OUTSIDE RECORDS SUMMARY | 2024-02-15 06:30 | XMS_ITS ---
Author Organization [facility] Address [address] [place] [address] Care Team Providers Care Taker Off Name Role Phone Richard Oleary MD Primary Care Provider Jas Sommer Unavailable [phone] Encounters Encounter Location Date Provider Diagnosis [address] [address] 02/15/2024 Jas Love Plan Of Treatment Next Appt Details Provider Name:Jas Love , 02/20/2025 09:00:00 AM, [address] [place] [address], [phone], Progress Notes * Jaime HAMLINDOB:[birth year] (69 yo M)Acc No.[id number]:02/15/2024 Progress Notes Patient: Nannette Jaime ARIAS Provider: Blanca Love DPM :1955 A ge:68 Y S ex:Male Date:02/15/2024 Address:[address] [facility] [id number] Pcp:Richard Oleary MD Subjective: * Chief Complaints: * * Medical History: Objective: * Vitals: Assessment: Plan: * Treatment: * Images: * The named appointment provid er may or may not be the originator of this progress note, and it is not deemed complete until electronically signed by the appointment provider. Sign off status: Pending * Provider: Blanca Love DPM Date: 1 Generated for Mervat Biswas on: 0 12/31/2024 01:02 PM EDT
--- OUTSIDE RECORDS SUMMARY | 2024-12-29 11:30 | XMS_ITS | Encounter Summary ---
Author Organization [employer] Address [address] [facility] 7t [place] [address] Care Team Providers Care College Sports Coach Name Role Phone Jeanna Oleary MD Primary Care Provider [phone] Estefanía Cervantes PharmD Unavailable [phone] Reason for Visit * Reason Comments Hypertension Diabetes Encounter Details Date Type Department Care Team ([facility] st Contact Info) Description 12/29/2024 11:30 AM EDT Office Visit [facility] [address] [place] [address] Jeanna Oleary MD [address] [place] [address] Type 2 diabetes mellitus with hyperglycemia, with long-term current use of insulin (CMS/HCC) (Primary Dx); Benign hypertension; Atrial fibrillation with rapid ventricular response (CMS/HCC); Tail bone pain; Encounter for immunization Social History Tobacco Use Types Packs/Day Years [...] the past 12 months, has t he [employer], gas, oil or water company threatened to [...] Sign Reading Time Taken Comments Blood Pressure 122/73 12/29/2024 11:29 AM EDT Pulse 82 12/29/2024 11:29 AM EDT Temperature 36.5 C (97.7 F) 12/29/2024 11:29 AM EDT Respiratory Rate 20 12/29/2024 11:29 AM EDT Oxygen Saturation 94% 12/29/2024 11:29 AM EDT Inhaled Oxygen Concentration - - Weight 82.1 kg (181 lb) 12/29/2024 11:29 AM EDT Height 175.3 cm (5' 9 ) 12/29/2024 11:29 AM EDT Body Mass Index 26.73 12/29/2024 11:29 AM EDT documented in this encounter Progress Notes * Jeanna Oleary MD - 12/29/2024 11:30 AM EDT SUBJECTIVE Jaime Hamlin is a 69 y.o. male who presents for Hypertension and Diabetes. Hypertension This is a chronic problem. The problem is controlled. Pertinent negatives include no anxiety, blurred vision, chest pain, headaches, malaise/fatigue, neck pain, orthopnea, palpitations, peripheral edema, PND, shortness of breath or sweats. Diabetes He presents for his follow-up diabetic visit. He has type 2 diabetes mellitus. His disease course has been stable. Pertinent negatives for hypoglycemia include no headaches or sweats. Pertinent negatives for diabetes include no blurred vision, no chest pain, no fatigue, no foot ulcerations, no polydipsia, no polyphagia, no visual change, no weakness and no weight loss. No episode of hypoglycemia since the last visit. On Mounjaro 15 mg. Dose well tolerated. Weight hasbeen stable x several months. H/o fall on his back while fixing a curtain 2 months ago. No LOC or palpitation prior to the fall. Pt has pain of the tailbone since than w/ a few lumps in the right adjacent buttock area. Problem List[1] Allergies[2] Medications Ordered Prior to Encounter[3] Review of Systems Constitutional: Negative for fatigue, malaise/fatigue and weight loss. Eyes: Negative for blurred vision. Respiratory: Negative for shortness of breath. Cardiovascular: Negative for chest pain, palpitations, orthopnea and PND. Endocrine: Negative for polydipsia and polyphagia. Musculoskeletal: Negative for neck pain. Neurological: Negative for weakness and headaches. OBJECTIVE Vitals: 12/29/24 1129 BP: 122/73 Pulse: 82 Resp: 20 Temp: 97.7 ??F (36.5 ??C) TempSrc: Oral SpO2: 94% Weight: 181 lb (82.1 kg) Height: 5' 9 (1.753 m) Physical Exam Constitutional: General: He is not in acute distress. Appearance: Normal appearance. He is not ill-appearing, toxic-appearing or diaphoretic. Cardiovascular: Rate and Rhythm: Normal rate. Pulmonary: Effort: Pulmonary effort is normal. Skin: Comments: Subcutaneous, mobile, non tender nodules of the right buttock. Neurological: Mental Status: He is alert. Assessment/Plan Assessment/Plan Diagnoses and all orders for this visit: Type 2 diabetes mellitus with hyperglycemia, with long-term current use of insulin ([facility]) Comments: stable No change Orders: - POCT Glucose - POCT HGB A1C - Lipid Panel, Standard; Future Benign hypertension Comments: controlled DASH diet No change Atrial fibrillation with rapid ventricular response (CMS/HCC) Comments: No bleeding Follow up w/ cardio Continue w xarelto. Tail bone pain Comments: h/o fall 2 months ago on his back while fixing a curtain No LOC. Warm compresses and diclofenac recommended. Xray ordered. Pt will be called w/ results. Orders: - XR Lumbar Spine 2-3 Views; Future - Diclofenac Sodium 1 % gel; To apply to the affected area 3 times a day Encounter for immunization - HEPATITIS B VACCINE 18 yrs old [1] Patient Active Problem List Diagnosis Atrial fibrillation with rapid ventricular response (CMS/HCC) Benign hypertension Chronic obstructive lung disease (CMS/HCC) Diabetic neuropathy (CMS/HCC) Gastric polyposis Gastroesophageal reflux disease Obstructive sleep apnea syndrome Obesity Injury of kidney Hyperlipidemia Osteoarthritis Pulmonary hypertension (CMS/HCC) Stage 3a chronic kidney disease (CMS/HCC) Type 2 diabetes mellitus (CMS/HCC) [2] Allergies Allergen Reactions Hydroxyzine Other reaction(s): ITCHY Other reaction(s): ITCHY [3] Current Outpatient Medications on File Prior to Visit Medication Sig Dispense Refill cholecalciferol (Vitamin D-3) 25 MCG tablet TAKE ONE TABLET DAILY 90 tablet 1 Continuous Glucose [employer] Counter Assistant (FreeStyle Yahir 2 [place]) device Scan sensor every 8 hours 1 [...] RINSE MOUTH AFTER USE 60 each 5 gabapentin (Neurontin) 800 MG tablet TAKE ONE TABLET BY MOUTH THREE TIMES DAILY 270 tablet 1 glucose-vitamin C 4-6 GM-MG oral gel 1 [...] tablet 3 Mounjaro 15 MG/0.5ML solution auto-injector inject 15 mg's SUBCUTANEOUSLY ONCE WEEKLY 2 mL 3 nystatin (Mycostatin) [id number] UNIT/GM powder APPLY TO THE AFFECTED AREA(S) TWICE DAILY 60 g 2 omeprazole (PriLOSEC) [address] capsule TAKE ONE CAPSULE BY MOUTH TWICE DAILY BEFORE MEALS 180 capsule 3 OneTouch Ultra Test test strip TEST BLOOD SUGAR SIX TIMES DAILY 200 strip 5 Ostomy Supplies (Skin Prep Wipes) [facility] To wipe the skin prior to applying [...] TABLET DAILY WITH SUPPER 90 tablet 3 [DISCONTINUED] cholecalciferol (Vitamin D-3) 25 MCG tablet TAKE ONE TABLET DAILY 90 tablet 1 [DISCONTINUED] furosemide (Lasix) 20 MG tablet TAKE ONE TABLET TWICE DAILY 180 tablet 1 [DISCONTINUED] glipiZIDE (Glucotrol) 5 MG tablet Take 1 tablet (5 mg) by mouth before breakfast andbefore evening meal. TAKE 4 TABLETS Twice daily before meals 180 tablet 3 [DISCONTINUED] Mounjaro 15 MG/0.5ML solution auto-injector inject 15 mg's SUBCUTANEOUSLY ONCE WEEKLY 2 mL 3 No current facility-administered medications on file prior to visit. documented in this encounter Plan of Treatment Upcoming Encounters Date Type Department Care Team (Late st Contact Info) Description 01/26/2025 9:00 AM EDT Telemedicine [facility] [address] [place] [address] Estefanía Cervantes, PharmD [address] [place], [place] [phone] Scheduled Orders Name Type Priority Associated Diagnoses Orde r Schedule Lipid Panel, Standard Lab Routine Type 2 diabetes mellitus with hyperglycemia, with long-term current use of insulin ([facility]) Expected: 12/29/2024 (Approximate), Expires: 12/29/2025 XR Lumbar Spine 2-3 Views Imaging Routine Tail bone pain Expected: 12/29/2024, Expires: 12/29/2025 documented as of this encounter Procedures Procedure Name Priority Date/Time Associated Diagnosis Comments POCT GLUCOSE Routine 12/29/2024 12:01 PM EDT Type 2 diabetes mellitus with hyperglycemia, with long-term current use of insulin ([facility]) POCT GLYCATED HEMOGLOBIN, TOTAL Routine 12/29/2024 11:58 AM EDT Type 2 diabetes mellitus with hyperglycemia, with long-term current use of insulin ([facility]) documented in this encounter Results * POCT Glucose (12/29/2024 12:01 PM EDT) Glucose Blood, POC 179 60 - 200 mg/dL QC Media Lot # [id number] Lot# Expiration Date ,235 Comment:random Blood Capillary blood specimen / Unknown 12/29/2024 12:01 PM EDT Jeanna Oleary MD POINT OF CARE TEST ENTER/ED IT ORDERABLES Final Result * (ABNORMAL) POCT HGB A1C (12/29/2024 11:58 AM EDT) Hemoglobin A1C 6.1(A) 4.0 - 5.7 % QC Media Lot # [id number] Lot# Expiration Date ,716,940 Blood 12/29/2024 11:5 8 AM EDT Jeanna Oleary MD POINT OF CARE TEST ENTER/ED IT ORDERABLES Final Result documented in this encounter Visit Diagnoses Diagnosis Type 2 diabetes mellitus with hyperglycemia, with long-term current use of insulin ([facility])- Primary Benign hypertension Essential hypertension, benign Atrial fibrillation with rapid ventricular response (CMS/HCC) Tail bone pain Encounter for immunization documented in this encounter Additional Health Concerns Assessment Noted Time PHQ-9 Depression Total Score: 3 06/16/19 25 10:59 AM EST documented as of this encounter Care Teams College Sports Coach Relationship Specialty Start Date End Date Jeanna Oleary MD [address] [place] [address] PCP - General Internal Medicine 12/19/16 Estefanía Cervantes PharmD [address] [place] [id number] Pharmacist Internal Medicine 06/03/24 documented as of this encounter
[2024-12-31 12:50] VITALS: BP 118/60; PULSE 76; BMI 25.9
--- NOTE | 2024-12-31 12:50 | MHC.OFFVIS ---
Vital Signs 12/31/24 12:50 Height 5 ft 10 in Weight 180 lb 12.465 oz BMI 25.9 BP 118/60 Blood Pressure Location Lt brachial Position Sitting Pulse 76 Pulse Source Pulse Oximeter Intake Visit Reasons: 6m follow up Allergies oxycodone (OXYCODONE) Adverse Reaction (Intermediate, Verified 12/02/24 08:50) HALLUCINATIONS, DIZZINESS simvastatin Adverse Reaction (Intermediate, Verified 12/02/24 08:50) myalgias elevated CPK Medication List - Last Reconciled 12/31/24 by Erasmo Daily MD blood sugar diagnostic As directed cholecalciferol (vitamin D3) 25 mcg PO DAILY doxepin 1 - 2 caps PO BEDTIME fexofenadine 180 mg PO DAILY flash glucose sensor (FreeStyle Yahir 2 Sensor kit) As directed gabapentin 800 mg PO TID hydroxyzine HCl 50 mg PO DAILY PRN insulin syringe-needle U-100 As directed losartan 25 mg PO .evening metoprolol succinate ER 25 mg PO DAILY omeprazole 40 mg PO BID pen needle, diabetic As directed rivaroxaban (Xarelto) 20 mg PO QPM rosuvastatin 40 mg PO DAILY testosterone (Testopel) 75 mg implant ONCE tirzepatide (Mounjaro) 15 mg subcut QWEEK HPI Comments Details: Jaime returns for follow-up regarding atrial fibrillation. Previously seen at [facility] but would like to switch he had because of insurance changes. He has a history of atrial fibrillation going back almost 10 years. Per records, he has had 4 ablations or so in 2013/2014. Since 2020, it seems that he has had persistent atrial fibrillation. It was then decided that patient would be managed mainly with rate control strategy. He was kept on beta-blockers. He had an admission around 2022 for hypotension, bradycardia and junctional rhythm with acute renal failure and briefly requiring dialysis. In that setting, his dose of beta-blockers was significantly reduced. EKG from last visit had shown sinus rhythm and a prior note from 05/2023 also with sinus rhythm. So at least for the last year he has been back in sinus rhythm. Clinically, he states he is doing very well. No concerns whatsoever. He has lost a significant amount of weight from the 300s to 180 lb using Mounjaro injections. [facility] Medical History PAF (paroxysmal atrial fibrillation) Hyperplastic polyps of stomach Anemia Atrial fibrillation Hypertension Hyperlipidemia Type 2 diabetes mellitus Respiratory failure with hypoxia and hypercapnia COPD (chronic obstructive pulmonary disease) Nocturnal hypoxemia TAE (obstructive sleep apnea) Obesity (BMI 30-39.9) Personal history of nicotine dependence Cervical disc herniation Erectile dysfunction Gynecomastia Hypogonadism in male Sialolithiasis of submandibular gland COVID-19 vaccine series completed Surgical History History of cardiac ablation for atrial fibrillation History of umbilical hernia repair History of vasectomy History of colonoscopy History of appendectomy History of uvulopalatopharyngoplasty History of repair of right rotator cuff History of right knee surgery History of cardioversion History of cervical discectomy History of esophagogastroduodenoscopy (EGD) H/O prior ablation treatment (04/09/20) History of penile implant History of cholecystectomy Family History Father No problems noted. Mother No problems noted. Social History Household Members: Spouse Housing: House Are you a primary critical care educator to a significant other at home: No Do you presently have visiting nurse or other home services: No Alcohol intake: current Alcohol intake frequency: a few times a month Alcohol type: beer Patient Tobacco Use Status: Former Tobacco user Tobacco use type: Cigarette Cigarette Packs Per Day: 2.5 Cigarettes Per Day: 50.0 Years Smoked: 40 Review of Systems Const Denies weakness ENT Denies dizziness Card Denies chest pain, Denies chest pain with activity, Denies syncope, Denies rapid heart rate, Denies pedal edema, Denies edema, Denies leg edema, Denies lightheadedness, Denies palpitations, Denies dyspnea, Denies dyspnea on exertion and Denies orthopnea Resp Denies cough, Denies dyspnea and Denies dyspnea on exertion GI Denies hematochezia and Denies change in stool character Musc Denies abnormal gait, Denies muscle cramps, Denies muscle weakness, Denies numbness, Denies radiating pain into limb and Denies tingling Neuro Denies abnormal gait, Denies dizziness, Denies syncope, Denies numbness, Denies tingling and Denies weakness Endo Denies palpitations Physical Exam Vital Signs: Last Vital Signs Pulse 76 12/31/24 12:50 BP 118/60 12/31/24 12:50 BMI result Body Mass Index 25.9 Const General: comfortable and no acute distress Orientation/consciousness: patient oriented x3 HEENT Other: Unremarkable Head: Yes normal to inspection Neck Neck: Yes normal visual inspection Chest Chest palpation & inspection: normal inspection of the chest Resp Auscultation: clear to auscultation bilaterally Cardio Palpation: normal PMI Heart sounds: S1 normal heart sound present, S2 normal heart sound present, no gallops, no murmurs and no rubs GI Palpation (GI): Soft to palpation Back/Spine/Pelvis Other: unremarkable Skin General skin exam: no rashes or lesions noted Neuro General: patient oriented x3 Extrem General: Yes normal to inspection Psych Mental Status: mental status grossly normal Assessment & Plan Assessment & Plan (1) PAF (paroxysmal atrial fibrillation): Code(s): I48.0 - Paroxysmal atrial fibrillation Category: Medical (2) Obesity (BMI 30-39.9): Code(s): E66.9 - Obesity, unspecified Category: Medical (3) Type 2 diabetes mellitus: Comment: IDDM2 Code(s): E11.9 - Type 2 diabetes mellitus without complications Category: Medical Plan Overall, many comorbidities, obesity but substantial weight loss, paroxysmal/persistent atrial fibrillation with many ablations in the past, but more recently in sinus for the last year+. Echocardiogram with LVEF of 68%. No significant valvular findings. Ascending aortic size 4.1 cm. Holter monitor shows underlying sinus rhythm with an average rate of 81/Min. No reported atrial fibrillation. Continue beta-blockers. Continue Xarelto. Last creatinine clearance > 60. As he is losing a lot of weight, that will significantly help him with diabetes management as well as lowering cardiovascular risk. Discussed with significant other and they are in agreement with plan. Discussion Notes During the visit, we discussed the management of the patient's diabetes mellitus with Mounjaro injections, which have been effective in weight loss and glycemic control. We also reviewed the patient's history of atrial fibrillation and the success of previous ablation procedures, noting the absence of recent arrhythmias. I advised the patient to continue with annual follow-ups unless new symptoms arise. Patient was informed and verbally consented to the use of an ambient scribe for clinic note documentation during this visit. Patient Instructions: - Schedule annual follow-up appointments. - Contact the clinic if experiencing chest pain or palpitations. Coding Level of Care Code Est Pt Level 4 (79317) Complex EM visit Add On G2211 Diagnoses PAF (paroxysmal atrial fibrillation) I48.0 Obesity (BMI 30-39.9) E66.9 Type 2 diabetes mellitus E11.9
--- OUTSIDE RECORDS SUMMARY | 2024-12-31 13:01 | XMS_ITS | Encounter Summary ---
Author Organization [employer] Address [address] [facility] 7t [place] [address] Care Team Providers Care Crisis Manager Name Role Phone Jeanna Oleary MD Primary Care Provider [phone] Estefanía Cervantes PharmD Unavailable [phone] Reason for Visit * Reason Comments Med Refill Encounter Details Date Type Department Care Team ([facility] st Contact Info) Description 09/14/2023 Refill [facility] MED [facility] PEDS [address] [place], [place] [phone] Jeanna Oleary MD [address] [place] [address] Type 2 diabetes mellitus without complications (CMS/HCC) [...] [facility] MED [facility] PED[facility] [address] [place] [address] Estefanía Cervantes PharmD [address] [place] [address] documented as of this encounter Visit Diagnoses Diagnosis Type 2 diabetes mellitus without complications (CMS/HCC) documented in this encounter Additional Health Concerns Assessment Noted Time PHQ-9 Depression Total Score: 0 11/24/19 23 10:27 AM EDT documented as of this encounter Care Teams Crisis Manager Relationship Specialty Start Date End Date Jeanna Oleary MD [address] [place] [address] PCP - General Internal Medicine 12/19/16 Estefanía Cervantes, PharmD [address] [place] [address] Pharmacist Internal Medicine 06/03/24 documented as of this encounter
--- OUTSIDE RECORDS SUMMARY | 2024-12-31 13:01 | XMS_ITS | Encounter Summary ---
Author Organization [employer] Address [address] [facility] [address] 7[address] [place] [address] Care Team Providers Care Duck Operator Name Role Phone Jeanna Oleary MD Primary Care Provider [phone] Estefanía Cervantes PharmD Unavailable [phone] Encounter Details Date Type Department Care Team (Latest Contact Info) Description 12/29/2024 Travel Social History Tobacco Use Types Packs/Day [...] Info) Description 01/26/2025 9:00 AM EDT Telemedicine [facility] MED [facility] PEDS [address] [place] [address] Estefanía Cervantes, PharmNannette [address] [place] [address] documented as of this encounter Visit Diagnoses Not on filedocumented in this encounter Additional Health Concerns Assessment Noted Time PHQ-9 Depression Total Score: 3 06/16/19 25 10:59 AM EST documented as of this encounter Care Teams Duck Operator Relationship Specialty Start Date End Date Jeanna Oleary MD [address] [place] [address] PCP - General Internal Medicine 12/19/16 Estefanía Cervantes PharmD [address] [place] [address] Pharmacist Internal Medicine 06/03/24 documented as of this encounter
--- OUTSIDE RECORDS SUMMARY | 2024-12-31 13:01 | XMS_ITS | Encounter Summary ---
Author Organization [employer] Address [address] [facility] 7t [place] [address] Care Team Providers Care Biostatistics Professor Name Role Phone Jeanna Oleary MD Primary Care Provider [phone] Estefanía Cervantes PharmD Unavailable [phone] Reason for Visit * Reason Onset Date Comments Med Refill 12/02/2024 Encounter Details Date Type Department Care Team ([facility] st Contact Info) Description 12/02/2024 Telephone [facility] [address] [place], [place] [phone] Jeanna Oleary MD [address] [place], [place] [phone] Med Refill Social History Tobacco Use Types [...] 9:57 AM EDT Medication was sent to [facility] on 09/04/24 with 3 refills. * Telephone Encounter - Diogenes Mckeon - 12/02/2024 9:45 AM EDT TC from pt requesting medication refill. Medications needing refill : Mounjaro 15 MG/0.5ML solution auto-injector To be sent to: [facility] [place] - [address] documented in this encounter Plan of Treatment Upcoming Encounters Date Type Department Care Team (Late st Contact Info) Description 01/26/2025 9:00 AM EDT Telemedicine [facility] [address] [place] [address] Estefanía Cervantes, PharmD [address] [place] [address] documented as of this encounter Visit Diagnoses Not on filedocumented in this encounter Additional Health Concerns Assessment Noted Time PHQ-9 Depression Total Score: 3 06/16/19 25 10:59 AM EST documented as of this encounter Care Teams Biostatistics Professor Relationship Specialty Start Date End Date Jeanna Oleary MD [address] [place] [address] PCP - General Internal Medicine 12/19/16 Estefanía Cervantes PharmD [address] [place] [phone] Pharmacist Internal Medicine 06/03/24 documented as of this encounter
--- OUTSIDE RECORDS SUMMARY | 2024-12-31 13:01 | XMS_ITS | Encounter Summary ---
Author Organization [employer] Address [address] [facility] 7t [place] [address] Care Team Providers Care Plasterer Foreman Name Role Phone Jeanna Oleary MD Primary Care Provider [phone] Estefanía Cervantes PharmD Unavailable [phone] Encounter Details Date Type Department Care Team (Late st Contact Info) Description 09/05/2023 Orders Only [facility] P[facility]S [address] [place], [place] [phone] Jeanna Oleary MD [address] [place] [address] Hyperkalemia (Primary Dx); Type 2 diabetes mellitus with hyperglycemia, with long-term current use of insulin (CMS/HCC); Erectile disorder Social History Tobacco Use Types [...] EDT Telemedicine [facility] [address] [place] [address] Estefanía Cervantes PharmD [address] [place] [address] Scheduled Orders Name Type Priority Associated Diagnoses [...] Testosterone, Total 98(A) 250 - 1100 ng/dL [facility] Comment:Men with clinically significant hypogonadalsymptoms and testosterone values repeatedly inthe range of the 200-300 ng/dL or less, maybenefit from testosterone treatment afteradequate risk and benefits counseling.For additional information, please refer [email or web address].[employer]/faq/[email or web address](This link is being provided for informational/educational purposes only.)This test was developed and its analytical performancecharacteristics have been determined by [employer], [place]. It hasnot been cleared or approved by the U.S. Food and DrugAdministration. This assay has been validated pursuantto the CLIA regulations and is used for clinicalpurposes. Testosterone, Free 14.7(A) 35.0 - 155.0 pg/mL [facility] Comment:This test was develo ped and its analytical performancecharacteristics have been determined by [employer] [place], [place]. It hasnot been cleared or approved by the U.S. Food and DrugAdministration. This assay has been validated pursuantto the CLIA regulations and is used for clinicalpurposes.THIS TEST WAS PERFORMED AT:[facility] [place] [address]RZUKNFALEONORA MCNEIL MD,PHD Blood Venous blood specimen / Unknown 10/03/2023 12:52 PM EDT 10/03/2023 4:32 PM EDT Jeanna Oleary MD LAB BLOOD ORDERABLES Final Result [facility] [address] [place] [address] [phone] documented in this encounter Visit Diagnoses Diagnosis Hyperkalemia- Primary Hyperpotassemia Type 2 diabetes mellitus with hyperglycemia, with long-term current use of insulin ([facility]) Erectile disorder documented in this encounter Additional Health Concerns Assessment Noted Time PHQ-9 Depression Total Score: 0 11/24/19 23 10:27 AM EDT documented as of this encounter Care Teams Plasterer Foreman Relationship Specialty Start Date End Date Jeanna Oleary MD [address] [place] [address] PCP - General Internal Medicine 12/19/16 Estefanía Cervantes PharmD [address] [place] [phone] Pharmacist Internal Medicine 06/03/24 documented as of this encounter
--- OUTSIDE RECORDS SUMMARY | 2024-12-31 13:01 | XMS_ITS | Encounter Summary ---
Author Organization [employer] Address [address] [facility] 7t [place] [address] Care Team Providers Care Seconds Inspector Name Role Phone Jeanna Oleary MD Primary Care Provider [phone] Estefanía Cervantes PharmD Unavailable [phone] Encounter Details Date Type Department Care Team (Late st Contact Info) Description 09/20/2023 Orders Only [facility] CHC MED & PEDS [address] [place], [place] [phone] Jeanna Oleary MD [address] [place], [place] [phone] Type 2 diabetes mellitus with hyperglycemia, with long-term current use of insulin ([facility]) (Primary Dx) Social History Tobacco Use Types Packs/Day Years Used Date Smoking Tobacco: Former Cigarettes Smokeless Tobacco: Never Alcohol Use Standard Drinks/Week Comments Yes 3 (1 standard drink = 0.6 oz pur e alcohol) Depression Answer Date Recorded Patient Health Questionnaire-9 Score 0 11/23/2022 Housing Stability Answer Date Recorded What is your housing situation today? I have daniellerenae martines 02/21/[address] you [...] Info) Description 01/26/2025 9:00 AM EDT Telemedicine [facility] MED & PEDS [address] [place] [address] Estefanía Cervantes PharmD [address] [place] [address] documented as of this encounter Visit Diagnoses Diagnosis Type 2 diabetes mellitus with hyperglycemia, with long-term current use of insulin ([facility])- Primary documented in this encounter Additional Health Concerns Assessment Noted Time PHQ-9 Depression Total Score: 0 11/24/19 23 10:27 AM EDT documented as of this encounter Care Teams Seconds Inspector Relationship Specialty Start Date End Date Jeanna Oleary MD [address] [place] [address] PCP - General Internal Medicine 12/19/16 Estefanía Cervantes PharmD [address] [place], [place] [phone] Pharmacist Internal Medicine 06/03/24 documented as of this encounter
--- OUTSIDE RECORDS SUMMARY | 2024-12-31 13:02 | XMS_ITS | Encounter Summary ---
Author Organization [employer] Address [address] [facility] 7t [place] [address] Care Team Providers Care Supervisor Roving Name Role Phone Jeanna Oleary MD Primary Care Provider [phone] Estefanía Cervantes PharmD Unavailable [phone] Encounter Details Date Type Department Care Team (Late st Contact Info) Description 01/29/2024 Orders Only [facility] CHC MED & PEDS [address] [place], [place] [phone] Jeanna Oleary MD [address] [place] [address] Class 3 severe obesity due to excess calories without serious comorbidity with body mass index (BMI) of 40.0 to 44.9 in adult (CMS/HCC) (Primary Dx); Type 2 diabetes mellitus with hyperglycemia, with long-term current use of insulin ([facility]) Social History Tobacco Use Types Packs/Day [...] [facility] [address] [place], [place] [phone] Estefanía Cervantes PharmD [address] [place], [place] [phone] documented as of this encounter Visit Diagnoses Diagnosis Class 3 severe obesity due to excess calories without serious comorbidity with body mass index (BMI) of 40.0 to 44.9 in adult- Primary Type 2 diabetes mellitus with hyperglycemia, with long-term current use of insulin ([facility]) documented in this encounter Additional Health Concerns Assessment Noted Time PHQ-9 Depression Total Score: 0 11/24/19 23 10:27 AM EDT documented as of this encounter Care Teams Supervisor Roving Relationship Specialty Start Date End Date Jeanna Oleary MD [address] [place], [place] [phone] PCP - General Internal Medicine 12/19/16 Estefanía Cervantes PharmD [address] [place], [place] [phone] Pharmacist Internal Medicine 06/03/24 documented as of this encounter
--- OUTSIDE RECORDS SUMMARY | 2024-12-31 13:02 | XMS_ITS | Encounter Summary ---
Author Organization [employer] Address [address] [facility] 7t [place] [address] Care Team Providers Care Mobile Designer Name Role Phone Jeanna Oleary MD Primary Care Provider [phone] Estefanía Cervantes PharmD Unavailable [phone] Encounter Details Date Type Department Care Team (Late st Contact Info) Description 11/07/2023 Orders Only [facility] CHC MED & PEDS [address] [place], [place] [phone] Jeanna Oleary MD [address] [place], [place] [phone] Type 2 diabetes mellitus with hyperglycemia, with long-term current use of insulin ([facility]) (Primary Dx) Social History Tobacco Use Types [...] Info) Description 01/26/2025 9:00 AM EDT Telemedicine [facility] MED & PEDS [address] [place] [address] Estefanía Cervantes PharmD [address] [place] [address] documented as of this encounter Visit Diagnoses Diagnosis Type 2 diabetes mellitus with hyperglycemia, with long-term current use of insulin ([facility])- Primary documented in this encounter Additional Health Concerns Assessment Noted Time PHQ-9 Depression Total Score: 0 11/24/19 23 10:27 AM EDT documented as of this encounter Care Teams Mobile Designer Relationship Specialty Start Date End Date Jeanna Oleary MD [address] [place] [address] PCP - General Internal Medicine 12/19/16 Estefanía Cervantes PharmD [address] [place], [place] [phone] Pharmacist Internal Medicine 06/03/24 documented as of this encounter
--- OUTSIDE RECORDS SUMMARY | 2024-12-31 13:02 | XMS_ITS | Patient Health Record ---
Author Organization [facility] Sofia[facility]rin[facility] Address [address] [facility] [place] [address] Care Team Providers Care Fuel Cell Test Engineer Name Role Phone Richard Oleary MD Primary Care Provider Jas Sommer Unavailable [phone] Allergies No Known Allergies Results Component Value [...] Problem Acquired hammer toe of right foot (0824298553530 105) Other hammer toe(s) (acquired), right foot (M20.41) Active confirmed Problem Acquired hammer toe of left foot (0339078804662 103) Other hammer toe(s) (acquired), left foot (M20.42) Active confirmed Problem Type 2 diabetes mellitus with peripheral angiopathy (585616600) Type 2 diabetes mellitus with diabetic peripheral angiopathy without gangrene (E11.51) Active confirmed Q7(A), Q8(2B), Q9(1B,2C) Vital Signs Blood pressure diastolic 80 mm Hg 02/22/2024 Height 5 ft 10 in in 02/22/2024 Blood pressure systolic 128 mm Hg 02/22/2024 Weight 243 lbs 02/22/2024 BMI 34.86 kg/m2 02/22/2024 Encounters Encounter Location Date Provider Diagnosis [facility] [place] [address] [place] [address] 02/22/2024 Jas Ivan Pain in left foot [...] Provider Name:Jas Love , 02/20/2025 09:00:00 AM, [address] [place] [address], [id number], Insurance Providers Payer Name Payer Address Payer Phone Subscriber Number Group Number Insured Name Patient Relationship to Insured Coverage Start Date Coverage End Date Medicare National [employer] [address] [place] [address] [id number] Jaime Hamlin Self - patient is the insured 7 [employer] [facility] [address] [place] [address] [phone] [id number] Jaime Hamlin Self - patient is the insured Medical (General) History Medical History History ICD Code covid-19 Diabetic Heart disease High blood pressure Kidney disease Reflux ( GERD) Stomach ulcer Surgical History Surgery Date(Month/Year) Gall bladder removal
--- OUTSIDE RECORDS SUMMARY | 2024-12-31 13:02 | XMS_ITS | Encounter Summary ---
Author Organization [employer] Address [address] [facility] [address] [place] [address] Care Team Providers Care Retail Key Holder Name Role Phone Jeanna Oleary MD Primary Care Provider [phone] Estefanía Cervantes PharmD Unavailable [phone] Reason for Referral * Consultation (Routine) - Authorized Specialty Diagnoses / Procedures Referred By Contac t Referred To Contact Gastroenterology Diagnoses Other cirrhosis of liver (CMS/HCC) Jeanna Oleary MD [address] [place] [address] Phone: tel: fax: Linda Shah MD [address] [place] [address] Phone: tel: fax: Referral ID Status Reason Start Date Expiration Date Visits Requested Visits Authorized [id number] Authorized Specialty Services Required 08/20/2024 08/20/2025 1 1 Encounter Details Date Type Department Care Team (Late st Contact Info) Description 08/20/2024 Orders Only [facility] CHC MED & PEDS [address] [place], [place] [phone] Jeanna Oleary MD [address] [place] [address] Other cirrhosis of liver (CMS/HCC) (Primary Dx) [...] Info) Description 01/26/2025 9:00 AM EDT Telemedicine [facility] MED & PEDS [address] [place] [address] Estefanía Cervantes, PharmD [address] [place] [address] Scheduled Referrals Name Type Priority Associated Diagnoses [...] as of this encounter Care Teams Retail Key Holder Relationship Specialty Start Date End Date Jeanna Oleary MD [address] [place] [address] PCP - General Internal Medicine 12/19/16 Estefanía Cervantes PharmD [address] [place] [address] Pharmacist Internal Medicine 06/03/24 documented as of this encounter
--- OUTSIDE RECORDS SUMMARY | 2024-12-31 13:02 | XMS_ITS | Encounter Summary ---
Author Organization [employer] Address [address] [facility] 7t [place] [address] Care Team Providers Care Automotive Heavy Mechanic Name Role Phone Jeanna Oleary MD Primary Care Provider [phone] Estefanía Cervantes PharmD Unavailable [phone] Reason for Visit * Reason Onset Date Comments Referral 11/13/2023 Encounter Details Date Type Department Care Team (Late st Contact Info) Description 11/13/2023 Telephone [facility] MEDICINE [address] [place] [address] Jeanna Oleary MD [address] [place] [address] Referral Social History Tobacco Use Types Packs/Day [...] 11/14/2023 10:06 AM EDT Referral faxed to [facility] as requested. * Telephone Encounter - Gene Kumari - 11/13/2023 2:59 PM EDT Tc from pt requesting for Podiatry referral to be sent over to [facility] in [place] due to location being easier. documented in this encounter Plan of Treatment Upcoming Encounters Date Type Department Care Team (Late st Contact Info) Description 01/26/2025 9:00 AM EDT Telemedicine [facility] MED & PEDS [address] [place] [address] Estefanía Cervantes, PharmD [address] [place] [address] documented as of this encounter Visit Diagnoses Not on filedocumented in this encounter Additional Health Concerns Assessment Noted Time PHQ-9 Depression Total Score: 0 11/24/19 23 10:27 AM EDT documented as of this encounter Care Teams Automotive Heavy Mechanic Relationship Specialty Start Date End Date Jeanna Oleary MD [address] [place] [address] PCP - General Internal Medicine 12/19/16 Estefanía Cervantes PharmD [address] [place] [address] Pharmacist Internal Medicine 06/03/24 documented as of this encounter
--- OUTSIDE RECORDS SUMMARY | 2024-12-31 13:02 | XMS_ITS | Clinical Summary ---
Author Organization [employer] Address [address] [facility] 7[address] [place] [address] Care Team Providers Care Thermodynamics Engineer Name Role Phone Jeanna Oleray MD Primary Care Provider [phone] Estefanía Cervantes PharmD Unavailable [phone] Allergies Active Allergy Reactions Criticality Noted Date [...] 80 g 5 024 Active nystatin (Mycostatin) 149909 UNIT/GM powder APPLY TO THE AFFECTED AREA(S) TWICE DAILY 60 g 2 024 Active Fluticasone-Salm eterol (Advair Diskus) 250-50 MCG/ACT aerosol powder USE ONE INHALATION TWICE DAILY. RINSE MOUTH AFTER USE 60 each 5 024 Active Continuous Glucose Pattern Shop Supervisor (FreeStyle Yahir 2 [place]) deviceIndication s:Type 2 diabetes mellitus with hyperglycemia, with long-term current use of insulin ([facility]) Scan sensor every 8 hours 1 each 024 Active OneTouch Ultra Test test stripIndications :Type 2 diabetes mellitus without complications ([facility]) TEST BLOOD SUGAR SIX TIMES DAILY 200 strip 5 Active Ostomy Supplies (Skin Prep Wipes) miscIndications: Type 2 diabetes mellitus with hyperglycemia, with long-term current use of insulin ([facility]) To wipe the skin prior to applying the sensor 2 times a month 50 each 11 Active Spiriva HandiHaler 18 MCG inhalation capsuleIndicatio ns:Mixed simple and mucopurulent chronic bronchitis ([facility]) USE 1 CAPSULE FOR INHALATION ONCE A DAY DO NOT SWALLOW CAPSULE 30 capsule 6 024 Active omeprazole (PriLOSEC) [address] capsule TAKE ONE CAPSULE BY MOUTH TWICE DAILY BEFORE MEALS 180 capsule 3 Active metoprolol succinate XL (Toprol-XL) 25 MG 24 hr tablet TAKE ONE TABLET EVERY MORNING 90 tablet 3 Active Xarelto 20 MG tablet TAKE ONE TABLET DAILY WITH SUPPER 90 tablet 3 024 Active Ferrous Sulfate (iron) 325 (65 Fe) MG tablet TAKE ONE TABLET EVERY DAY 30 tablet 3 025 Active Continuous Glucose Sensor (FreeStyle Yahir 2 Plus Sensor) miscIndications: Type 2 diabetes mellitus with hyperglycemia, with long-term current use of insulin ([facility]) 1 each Once per day. 2 each Active losartan (Cozaar) 25 MG tabletIndication s:Benign hypertension Take 1 tablet (25 mg) by mouth Once per day. 90 tablet 3 025 Active metFORMIN (Glucophage) 1000 MG tabletIndication s:Type 2 diabetes mellitus with diabetic neuropathy, unspecified ([facility]) TAKE ONE TABLET TWICE DAILY 180 tablet 2 025 Active rosuvastatin (Crestor) 40 MG tabletIndication s:Hypercholester olemia TAKE ONE TABLET BY MOUTH EVERY DAY 90 tablet 5 025 Active gabapentin (Neurontin) 800 MG tablet TAKE ONE TABLET BY MOUTH THREE TIMES DAILY 270 tablet 1 025 Active hydrOXYzine HCl (Atarax) 50 MG tabletIndication s:Pruritus, unspecified TAKE ONE TABLET FOUR TIMES DAILY 120 tablet 5 025 Active doxepin (SINEquan) 25 MG capsuleIndicatio ns:Pruritus, unspecified TAKE 1 TO 2 CAPSULES EVERY NIGHT AT BEDTIME 60 capsule 5 025 Active Mounjaro 15 MG/0.5ML solution auto-injectorInd ications:Class 3 severe obesity due to excess calories without serious comorbidity with body mass index (BMI) of 40.0 to 44.9 in adult,Type 2 diabetes mellitus with hyperglycemia, with long-term current use of insulin ([facility]) inject 15 mg's SUBCUTANEOUSLY ONCE WEEKLY 2 mL 3 025 Active cholecalciferol (Vitamin D-3) 25 MCG tabletIndication s:Vitamin D deficiency TAKE ONE TABLET DAILY 90 tablet 1 025 Active Diclofenac Sodium 1 % gelIndications:T ail bone pain To apply to the affected area 3 times a day 50 g 025 Active furosemide (Lasix) 20 MG tablet TAKE ONE TABLET TWICE DAILY 180 tablet 1 024 2024 Discontinued(T herapy completed) glipiZIDE (Glucotrol) 5 MG tabletIndication s:Type 2 diabetes mellitus with hyperglycemia, with long-term current use of insulin ([facility]) Take 1 tablet (5 mg) by mouth before breakfast and before evening meal. TAKE 4 TABLETS Twice daily before meals 180 tablet 3 024 2024 Discontinued cholecalciferol (Vitamin D-3) 25 MCG tabletIndication s:Vitamin D deficiency TAKE ONE TABLET DAILY 90 tablet 1 025 2024 Discontinued Mounjaro 15 MG/0.5ML solution auto-injectorInd ications:Class 3 severe obesity due to excess calories without serious comorbidity with body mass index (BMI) of 40.0 to 44.9 in adult,Type 2 diabetes mellitus with hyperglycemia, with long-term current use of insulin ([facility]) inject 15 mg's SUBCUTANEOUSLY ONCE WEEKLY 2 mL 3 025 2024 Discontinued Active [...] Encounters Date Type Department Care Team Description 12/29/2024 11:30 AM EDT Office Visit [facility] [address] [place] [address] Jeanna Oleary MD Type 2 diabetes mellitus with hyperglycemia, with long-term current use of insulin ([facility]) (Primary Dx); Benign hypertension; Atrial fibrillation with rapid ventricular response (CMS/HCC); Tail bone pain; Encounter for immunization 12/29/2024 Travel 12/26/2024 Refill [facility] MED[facility] [address] [place] [address] Jeanna Oleary MD Vitamin D deficiency 12/25/2024 Refill [facility] [address] [place] [address] Jeanna Oleary MD Class 3 severe obesity due to excess calories without serious comorbidity with body mass index (BMI) of 40.0 to 44.9 in adult; Type 2 diabetes mellitus with hyperglycemia, with long-term current use of insulin (CMS/HCC) 12/17/2024 Telephone [facility] [address] [place] [address] Jeanna Oleary MD Med Refill 12/02/2024 Telephone [facility] [address] [place] [address] Jeanna Oleary MD Med Refill 11/25/2024 Refill [facility] [address] [place] [address] Jeanna Oleary MD Pruritus, unspecified; Pruritus, unspecified 11/20/2024 Orders Only GENERIC EXTERNAL DATA DEPARTMENT Provider, Generic External Data 10/09/2024 Orders Only GENERIC EXTERNAL DATA DEPARTMENT Provider, Generic External Data 10/02/2024 Refill [facility] [address] [place] [address] Jeanna Oleary MD from Last 3 Months Immunizations Immunization Administration Dates Next Due Hep B, adult 12/29/2024, 8,12/31/2017,11/30 Influenza Quadrivalent Adjuvanted 01/19/2023,08/2021,01/24/2021 Influenza injectable quadriv [...] Mass Index 26.73 12/29/2024 11:29 AM EDT Plan of Treatment Upcoming Encounters Date Type Department Care Team (Late st Contact Info) Description 01/26/2025 9:00 AM EDT Telemedicine [facility] [address] [place] [address] Estefanía Cervantes, PharmD [address] [place] [address] Health Maintenance Due Date Last Done Comments CT Colonography 1954 FIT DNA/Cologuard 1954 FIT 1954 FOBT 1954 Sigmoidoscopy 1954 Diabetes: Foot Exam 1964 Hepatitis A Vaccines (1 of 2 - Risk 2-dose series) 1973 Eye Exam 02/08/2024 02/07/2023 Lipid Panel 11/25/2024 11/26/2023 Influenza Vaccine (#1) 2025 , 01/19/2023, 02/07/2022, Additional history exists Diabetes: Urine Protein Screening 06/13/2025 06/13/2024, 03/25/2024, 12/11/2022, Additional history exists Alcohol/Substance Use Screening 06/16/2025 06/16/2024 Depression Screening 06/16/2025 06/16/2024, 06/16/19 SDOH Screening 06/16/2025 06/16/2024 Diabetes: Hemoglobin A1C 07/01/2025 025, 06/16/2024, 02/20/2024, Additional history exists DTaP/Tdap/Td Vaccines (2 - Td or Tdap) 11/08/2025 11/09/2015 Tobacco Screening 12/29/2025 12/29/2024 Colonoscopy 02/16/2028 02/15/2023 Colorectal Cancer Screening 02/16/2028 Zoster Vaccines Completed 02/25/2019, 12/05, 11/09/2015, Additional history exists Pneumococcal Vaccine: 50+ Years Completed 01/24/2021, 01/19/2020, 11/09/2015, Additional history exists RSV Patients and Patients Aged 60 years or older Completed 01/19/2023 COVID-19 Vaccine Completed 07/31/2024, 08/2023, 02/13/2023, Additional history exists Hepatitis C Screening Completed 08/14/2024 Hepatitis B Vaccines Completed 12/29/2024, 03/04/2018, 12/31/2017, Additional history exists HIB Vaccines Aged Out [...] hyperglycemia, with long-term current use of insulin ([facility]) POCT GLYCATED HEMOGLOBIN, TOTAL Routine 12/29/2024 11:58 AM EDT Type 2 diabetes mellitus with hyperglycemia, with long-term current use of insulin ([facility]) TESTOSTERONE, TOTAL, MALES (ADULT), IA Routine 11/20/2024 10:13 AM EDT BASIC METABOLIC PANEL Routine 10/09/2024 11:10 AM EDT CBC Routine 10/09/2024 11:10 AM EDT HEPATITIS PANEL, GENERAL Routine 08/14/2024 12:02 PM EDT Transaminitis ALBUMIN, RANDOM URINE W/CREATININE Routine 06/13/2024 10:55 AM EST LIPID PANEL, STANDARD Routine 11/26/2023 8:45 AM EDT COLONOSCOPY Routine 02/15/2023 HM DIABETES EYE EXAM Routine 02/07/2023 from Last 3 Months or Most Recently Relevant to Health Maintenance Results * POCT Glucose (12/29/2024 12:01 PM EDT) Glucose Blood, POC 179 60 - 200 mg/dL QC Media Lot # [id number] Lot# Expiration Date [id number] Comment:random Blood Capillary blood specimen / Unknown 12/29/2024 12:01 PM EDT Jeanna Oleary MD POINT OF CARE TEST ENTER/ED IT ORDERABLES Final Result * (ABNORMAL) POCT HGB A1C (12/29/2024 11:58 AM EDT) Hemoglobin A1C 6.1(A) 4.0 - 5.7 % QC Media Lot # [id number] Lot# Expiration Date [id number] Blood 12/29/2024 11:5 8 AM EDT Jeanna Oleary MD POINT OF CARE TEST ENTER/ED IT ORDERABLES Final Result * Testosterone, Total, males (Adult), IA (11/20/2024 10:13 AM EDT) Testosterone, Total 598 250 - 1100 ng/dL [facility] Comment:Men with clinically significant hypogonadalsymptoms and testosterone values repeatedly inthe range of the 200-300 ng/dL or less, maybenefit from testosterone treatment afteradequate risk and benefits counseling.For additional information, please refer [email or web address](This link is being provided for informational/educational purposes only.)This test was developed and its analytical performancecharacteristics have been determined by [employer] [place], [place]. It hasnot been cleared or approved by the U.S. Food and DrugAdministration. This assay has been validated pursuantto the CLIA regulations and is used for clinicalpurposes.THIS TEST WAS PERFORMED AT:[employer] [id number] [place] [id number] MCNEIL MD,PHD 11/20/2024 10:1 3 AM EDT 11/20/2024 12:50 PM EDT us Generic External Data Provider LAB BLOOD ORDERAB LES Final Result Performing Organization Address City/[facility]/ZIP Co de Phone Number [facility] [address] [place] [address] [phone] * (ABNORMAL) CBC (10/09/2024 11:10 AM EDT) White Blood Count 4.7(L) 4.8 - 10.8 X10*3/uL [facility] Red Blood Count 5.04 4.60 - 5.80 X10*6/uL [facility] Hemoglobin 13.5(L) 14.0 - 18.0 g/dl [facility] Hematocrit 41.3(L) 42.0 - 52.0 % [facility] Mean Corpuscular Volume 81.9 80.0 - 98.0 fL [facility] Mean Corpuscular Hemoglobin 26.8(L) 27.0 - 33.0 pg [facility] Mean Corpuscular HGB Conc 32.7 31.0 - 36.0 g/dl [facility] Red Cell Distribution Width 17.8(H) 11.0 - 16.0 % [facility] Platelet Count 191 160 - 400 X10*3/uL [facility] Mean Platelet Volume 10.5 9.4 - 12.4 fL [facility] NRBC Pct Auto 0.0 0.0 - 0.2 /100WBC [facility] NRBC Abs Auto 0.000 0.0 - 0.012 X10*3/uL [facility] 10/09/2024 11:1 0 AM EDT 10/09/2024 1:27 PM EDT Generic External Data Provider LAB BLOOD ORDERAB LES Final Result Performing Organization Address City/[facility]/ZIP Co de Phone Number [facility] [address] [place] [address] [phone] * (ABNORMAL) Basic Metabolic Panel (10/09/2024 11:10 AM EDT) Sodium 137 135 - 145 mmol/L [facility] Potassium 4.6 3.3 - 5.1 mmol/L [facility] Chloride 104 96 - 108 mmol/L [facility] Carbon Dioxide 24 22 - 29 mmol/L [facility] Anion Gap 14 12 - 20 [facility] Urea Nitrogen (BUN) 21(H) 9 - 16 mg/dL [facility] Creatinine, Serum 1.14 0.5 - 1.4 mg/dL [facility] Estimated Glomerular Filt Rate >60 [facility] Comment:Chronic Kidney Disea se: Estimated GFR < 60 mL/min/1.57d1Lumebh Kidney Disease: Estimated GFR < 15 mL/min/1.73m2 Glucose 167(H) 60 - 115 mg/dL [facility] Calcium 10.1 8.4 - 10.2 mg/dL [facility] 10/09/2024 11:1 0 AM EDT 10/09/2024 1:27 PM EDT us Generic External Data Provider LAB BLOOD ORDERAB LES Final Result [facility] [address] [place] [phone] * Hepatitis A,B,C Profile (08/14/2024 12:02 PM EDT) Hepatitis A IgM Nonreactive Nonreactive [facility] Comment:IgM antibodies to MEDEL V not detected; does not exclude earlyacute or recovered HAV infection. ~Hepatitis B Surface Antibody NONREACTIVE Nonreactive [facility] Comment:Nonreactive: < 8.00 mIU/mL Hepatitis B Core Antibody Nonreactive Nonreactive [facility] Hepatitis C Antibody Nonreactive Nonreactive [facility] Comment:Antibodies to HCV no t detected; does not exclude early acuteHCV infection. Hepatitis B Surface Ag Negative Negative [facility] Blood Venous blood specimen / Unknown 08/14/2024 12:02 PM EDT 08/14/2024 1:22 PM EDT us Jeanna Oleary MD LAB BLOOD ORDERABLES Final Result Performing Organization Address [facility] de Phone Number [facility] [address] [place] [phone] * (ABNORMAL) Albumin, Random Urine W/Creatinine (06/13/2024 10:55 AM EST) Creatinine, Urine 87.64 mg/dL [facility] Microalbumin Urine 450.0 mg/L [facility] Microalbum Creatinine Ratio Ur 513.4(H) <30 ug/mg cr [facility] Comment:Albumin/Creatinine R atio Reference Ranges: Normal: < 30 ug/mg creatinine Microalbuminuria: 30 - 300 ug/mg creatinineClinical Albuminuria: > 300 ug/mg creatinine 06/13/2024 10:5 5 AM EST 06/13/2024 1:21 PM EST us Jeanna Oleary MD LAB URINE ORDERABLES Final Result Performing Organization Address [facility] de Phone Number [facility] [address] [place] [phone] * (ABNORMAL) Lipid Panel, Standard (11/26/2023 8:45 AM EDT) Triglycerides 155(H) <150 mg/dL [facility] Comment:Desirable Triglyceri de: less than 150 mg/dLBorderline High Triglyceride 150-199 mg/dLHigh Triglyceride: 200-499 mg/dLVery High Triglyceride: greater than or equal to 5OO mg/dL Cholesterol 99 <200 mg/dL [facility] Comment:Desirable Cholestero l: less than 200 mg/dLBorderline High Cholesterol: 200-239 mg/dLHigh Cholesterol: greater than 239 mg/dL LDL Cholesterol Calculated 32 <100 mg/dL [facility] Comment:Desirable LDL: less than 100 mg/dLNear Optimal/Above Optimal LDL: 110- 129 mg/dLBorderline High LDL: 130-159 mg/dLHigh LDL: 160-189 mg/dLVery High LDL: greater than or equal to 190 mg/dL HDL Cholesterol 36(L) >40 mg/dL [facility] Comment:Desirable HDL: great er than 40 mg/dL Note: This HDL assay may give artificially low results in patients with liver disease. 11/26/2023 8:45 AM EDT 11/26/2023 8:45 AM EDT us Generic External Data Provider LAB BLOOD ORDERAB LES Final Result [facility] [address] [place] [phone] [phone] * (ABNORMAL) Colonoscopy (02/15/2023) Anatomical Region [...] Most Recently Relevant to Health Maintenance Insurance [facility] MEDICARE ADVANTAGE HMO Care Teams Thermodynamics Engineer Relationship Specialty Start Date End Date Jeanna Oleary MD [address] [place] [phone] PCP - General Internal Medicine 12/19/16 Estefanía Cervantes PharmD [address] [place] [phone] Pharmacist Internal Medicine 06/03/24
--- OUTSIDE RECORDS SUMMARY | 2024-12-31 13:02 | XMS_ITS | Encounter Summary ---
Author Organization [employer] Address [address] [facility] 7[address] [place] [address] Care Team Providers Care Chief Quality Officer Name Role Phone Jeanna Oleary MD Primary Care Provider [phone] Estefanía Cervantes PharmD Unavailable [phone] Reason for Visit * Reason Comments Med Refill Encounter Details Date Type Department Care Team (Late st Contact Info) Description 12/26/2024 Refill [facility]INE [address] [place] [address] Jeanna Oleary MD [address] [place] [address] Vitamin D deficiency Social History Tobacco Use Types Packs/Day Years [...] Info) Description 01/26/2025 9:00 AM EDT Telemedicine [facility] [address] [place] [address] Estefanía Cervantes PharmD [address] [place] [address] documented as of this encounter Visit Diagnoses Diagnosis Vitamin D deficiency documented in this encounter Additional Health Concerns Assessment Noted Time PHQ-9 Depression Total Score: 3 06/16/19 25 10:59 AM EST documented as of this encounter Care Teams Chief Quality Officer Relationship Specialty Start Date End Date Jeanna Oleary MD [address] [place] [address] PCP - General Internal Medicine 12/19/16 Estefanía Cervantes PharmD [address] [place] [address] Pharmacist Internal Medicine 06/03/24 documented as of this encounter
--- OUTSIDE RECORDS SUMMARY | 2024-12-31 13:02 | XMS_ITS | Encounter Summary ---
Author Organization [employer] Address [address] [facility] [address] [place] [address] Care Team Providers Care Precipitation Equipment Tender Name Role Phone Jeanna Oleary MD Primary Care Provider [phone] Estefanía Cervantes PharmD Unavailable [phone] Encounter Details Date Type Department Care Team (Late st Contact Info) Description 01/01/2024 Orders Only [facility] [address] [place], [place] [phone] Jeanna Oleary MD [address] [place], [place] [phone] Type 2 diabetes mellitus with hyperglycemia, with long-term current use of insulin ([facility]) (Primary Dx) Social History Tobacco Use [...] [facility] [address] [place] [address] Estefanía Cervantes PharmD [address] [place] [address] documented as of this encounter Visit Diagnoses Diagnosis Type 2 diabetes mellitus with hyperglycemia, with long-term current use of insulin ([facility])- Primary documented in this encounter Additional Health Concerns Assessment Noted Time PHQ-9 Depression Total Score: 0 11/24/19 23 10:27 AM EDT documented as of this encounter Care Teams Precipitation Equipment Tender Relationship Specialty Start Date End Date Jeanna Oleary MD [address] [place] [address] PCP - General Internal Medicine 12/19/16 Estefanía Cervantes PharmD [address] [place], [place] [phone] Pharmacist Internal Medicine 06/03/24 documented as of this encounter
--- OUTSIDE RECORDS SUMMARY | 2024-12-31 13:02 | XMS_ITS | Encounter Summary ---
Author Organization [employer] Address [address] [facility] [address] [place] [address] Care Team Providers Care Ship Washer Name Role Phone Jeanna Oleary MD Primary Care Provider [phone] Estefanía Cervantes PharmD Unavailable [phone] Reason for Visit * Reason Onset Date Comments Med Refill 12/17/2024 Encounter Details Date Type Department Care Team (Late st Contact Info) Description 12/17/2024 Telephone [facility] MEDICINE [address] [place] [address] Jeanna Oleary MD [address] [place] [address] Med Refill Social History Tobacco Use Types [...] Telephone Encounter - Kimberly Stout LPN - 12/17/2024 10:53 AM EDT Sensors have refills script was sent on 06/03/24 with 11 refills. * Telephone Encounter - Wendy Xie - 12/17/2024 10:48 AM EDT TC from pt requesting medication refill. Medications needing refill : - Continuous Glucose Sensor (FreeStyle Yahir 2 Plus Sensor) [facility] To be sent to: - [facility] [place] - [address] documented in this encounter Plan of Treatment Upcoming Encounters Date Type Department Care Team (Late st Contact Info) Description 01/26/2025 9:00 AM EDT Telemedicine [facility] MED & PEDS [address] [place] [address] Estefanía Cervantes, PharmD [address] [place] [address] documented as of this encounter Visit Diagnoses Not on filedocumented in this encounter Additional Health Concerns Assessment Noted Time PHQ-9 Depression Total Score: 3 06/16/19 25 10:59 AM EST documented as of this encounter Care Teams Ship Washer Relationship Specialty Start Date End Date Jeanna Oleary MD [address] [place] [address] PCP - General Internal Medicine 12/19/16 Estefanía Cervantes PharmD [address] [place] [address] Pharmacist Internal Medicine 06/03/24 documented as of this encounter
--- OUTSIDE RECORDS SUMMARY | 2024-12-31 13:02 | XMS_ITS | Encounter Summary ---
Author Organization [employer] Address [address] [facility] 7 [place] [address] Care Team Providers Care Muffler Mechanic Name Role Phone Jeanna Oleary MD Primary Care Provider [phone] Estfeanía Cervantes PharmD Unavailable [phone] Reason for Referral * Consultation (Routine) - Closed Specialty Diagnoses / Procedures Referred By Contac t Referred To Contact Endocrinology Diagnoses Hypogonadism male Jeanna Oleary MD [address] [place] [address] Phone: tel: fax: [facility] Endocrinology [address] [place] [address] Phone: tel: fax: Referral ID Status Reason Start Date Expiration Date V isits Requested Visits Authorized [id number] Closed Specialty Services Required 10/11/2023 10/10/2024 1 1 Encounter Details Date Type Department Care Team (Late st Contact Info) Description 10/11/2023 Orders Only [facility] CH[facility] MED & PEDS [address] [place] [address] Jeanna Oleary MD [address] [place] [address] Hypogonadism male (Primary Dx) Social History Tobacco [...] [facility] [address] [place] [address] Estefanía Cervantes, PharmD [address] [place] [address] Scheduled Referrals Name Type Priority Associated Diagnoses [...] Testosterone, Total 94(A) 250 - 1100 ng/dL [facility] Comment:Men with clinically significant hypogonadalsymptoms and testosterone values repeatedly inthe range of the 200-300 ng/dL or less, maybenefit from testosterone treatment afteradequate risk and benefits counseling.For additional information, please refer [email or web address]/faq/[email or web address](This link is being provided for informational/educational purposes only.)This test was developed and its analytical performancecharacteristics have been determined by [employer] [place], [place]. It hasnot been cleared or approved by the U.S. Food and DrugAdministration. This assay has been validated pursuantto the CLIA regulations and is used for clinicalpurposes.THIS TEST WAS PERFORMED AT:[facility] [place] [address]TDYTGCPLEONORA MCNEIL MD,PHD Blood Venous blood specimen / Unknown 10/16/2023 2:12 PM EDT 10/16/2023 5:54 PM EDT us Jeanna Oleary MD LAB BLOOD ORDERABLES Final Result [facility] [address] [place] [address] [phone] documented in this encounter Visit Diagnoses Diagnosis Hypogonadism male- Primary Other testicular hypofunction documented in this encounter Additional Health Concerns Assessment Noted Time PHQ-9 Depression Total Score: 0 11/24/19 23 10:27 AM EDT documented as of this encounter Care Teams Muffler Mechanic Relationship Specialty Start Date End Date Jeanna Oleary MD [address] [place] [address] PCP - General Internal Medicine 12/19/16 Estefanía Cervantes, Gianni [address] [place] [address] Pharmacist Internal Medicine 06/03/24 documented as of this encounter
--- OUTSIDE RECORDS SUMMARY | 2024-12-31 13:02 | XMS_ITS | Encounter Summary ---
Author Organization [employer] Address 75 [facility] 7t [place] [address] Care Team Providers Care Electromechanical Technologist Name Role Phone Jeanna Oleary MD Primary Care Provider [phone] Estefanía Cervantes PharmD Unavailable [phone] Encounter Details Date Type Department Care Team (Late st Contact Info) Description 06/16/2024 Orders Only [facility] CH[facility] MED & PEDS [address] [place], [place] [phone] Jeanna Oleary MD [address] [place] [address] Social History Tobacco Use Types Packs/Day Years [...] Info) Description 01/26/2025 9:00 AM EDT Telemedicine [facility] CH[facility] MED & PEDS [address] [place] [address] Estefanía Cervantes PharmD [address] [place] [address] documented as of this encounter Visit Diagnoses Not on filedocumented in this encounter Additional Health Concerns Assessment Noted Time PHQ-9 Depression Total Score: 3 06/16/19 10:59 AM EST documented as of this encounter Care Teams Electromechanical Technologist Relationship Specialty Start Date End Date Jeanna Oleary MD [address] [place] [address] PCP - General Internal Medicine 12/19/16 Estefanía Cervantes PharmD [address] [place] [address] Pharmacist Internal Medicine 06/03/24 documented as of this encounter
--- OUTSIDE RECORDS SUMMARY | 2024-12-31 13:02 | XMS_ITS | Encounter Summary ---
Author Organization [employer] Address [address] [place] [address] [place] [address] Care Team Providers Care Customer Service Representative Teacher Name Role Phone Jeanna Oleary MD Primary Care Provider [phone] Estefanía Cervantes PharmD Unavailable [phone] Reason for Visit * Reason Comments Med Refill Encounter Details Date Type Department Care Team (Late Contact Info) Description 07/04/2022 Refill [facility] MEDICINE [address] [place], [place] [phone] Jeanna Oleary MD [address] [place], [place] [phone] Mixed simple and mucopurulent chronic bronchitis (CMS/HCC) [...] Info) Description 01/26/2025 9:00 AM EDT Telemedicine [facility] CHC MED & PEDS [address] [place], [place] [phone] Estefanía Cervantes, PharmD [address] [place], [place] [phone] documented as of this encounter Visit Diagnoses Diagnosis Mixed simple and mucopurulent chronic bronchitis (CMS/HCC)- Primary Other chronic bronchitis Type 2 diabetes mellitus with hyperglycemia, with long-term current use of insulin (CMS/HCC) documented in this encounter Care Teams Customer Service Representative Teacher Relationship Specialty Start Date End Date Jeanna Oleary MD [address] [place] [address] PCP - General Internal Medicine 12/19/16 Estefanía Cervantes PharmD [address] [place] [address] Pharmacist Internal Medicine 06/03/24 documented as of this encounter
--- OUTSIDE RECORDS SUMMARY | 2024-12-31 13:02 | XMS_ITS | Clinical Summary ---
Author Organization [facility] Address [address] [place] [address] Phone Care Team Providers Care Monument Carver Name Role Phone Jeanna Oleary MD Primary Care Provider [phone] Allergies Active Allergy Reactions Criticality Noted Date [...] Medicare [facility] Medicare Care Teams Monument Carver Relationship Specialty Start Date End Date Jeanna Oleary MD PCP - General 05/17/20
--- OUTSIDE RECORDS SUMMARY | 2024-12-31 13:02 | XMS_ITS | Encounter Summary ---
Author Organization [employer] Address [address] [facility] 7t [place] [address] Care Team Providers Care Station Mechanic Name Role Phone Jeanna Oleary MD Primary Care Provider [phone] Estefanía Cervantes PharmD Unavailable [phone] Encounter Details Date Type Department Care Team (Late st Contact Info) Description 07/11/2024 Orders Only [facility] MEDICINE [address] [place] [address] Jeanna Oleary MD [address] [place], [place] [phone] Hepatomegaly (Primary Dx); Primary osteoarthritis of other [...] Info) Description 01/26/2025 9:00 AM EDT Telemedicine [facility] CHC MED & PEDS [address] [place] [address] Estefanía Cervantes, PharmD [address] [place] [address] documented as of this encounter Procedures Procedure Name Priority Date/Time Associated Diagnosis Comments US ABDOMEN WYATT W ELASTOGRAPHY Routine 08/20/2024 9:12 AM EDT documented in this encounter Results * US ABDOMEN WYATT W ELASTOGRAPHY (08/20/2024 9:12 AM EDT) Anatomical Region Laterality Modality Abdomen Ultrasound 08/20/2024 9:12 AM EDT Narrative 08/20/2024 10:08 AM EDT [facility] [address] [place] [address] Ultrasound Report Signed Patient: Jaime Hamlin MR#: [id number] : 1955 Acct:[id number] Age/Sex: 69 / M ADM Date: 08/20/24 Loc: HO.US Attending Dr: Jeanna Oleary MD Ordering Physician: Jeanna Oleary MD Date of Service: 08/20/24 Procedure(s): US abdomen wyatt w elastography Accession Number(s): [id number] cc: Jeanna Oleary MD EXAMINATION: US ABDOMEN [...] 08/20/24 1005 DD/ 0912 TD/TT: 08/20/24 0935 Signs Cleaner: Procedure Note Donotuseinterpreter, Image - 08/20/[address] [address] Ultrasound Report Signed Patient: Jaime Hamlin JMR#: [id number] : 5Acct:[id number] Age/Sex: 69 / MADM Date: 08/20/24 Loc: HO.US Attending Dr: Jeanna Oleary MD Ordering Physician: Jeanna Oleary MD Date of Service: 08/20/24 Procedure(s): US abdomen wyatt w elastography Accession Number(s): [id number] cc: Jeanna Oleary MD EXAMINATION: US ABDOMEN [...] 08/20/24 1005 DD/ 0912 TD/TT: 08/20/24 0935 Signs Cleaner: us Jeanna Oleary MD IMG US PROCEDURES Final Res ult documented in this encounter Visit Diagnoses Diagnosis Hepatomegaly- Primary Primary osteoarthritis of other site documented in this encounter Additional Health Concerns Assessment Noted Time PHQ-9 Depression Total Score: 3 06/16/19 25 10:59 AM EST documented as of this encounter Care Teams Station Mechanic Relationship Specialty Start Date End Date Jeanna Oleary MD [address] [place] [address] PCP - General Internal Medicine 12/19/16 Estefanía Cervantes PharmD [address] [place] [address] Pharmacist Internal Medicine 06/03/24 documented as of this encounter
--- OUTSIDE RECORDS SUMMARY | 2024-12-31 13:02 | XMS_ITS | Encounter Summary ---
Author Organization [employer] Address [address] [facility] [address], [place] [address] Care Team Providers Care Cloth Hand Name Role Phone Jeanna Oleary MD Primary Care Provider [phone] Estefanía Cervantes PharmD Unavailable [phone] Reason for Referral * Consultation (Routine) - Closed Specialty Diagnoses / Procedures Referred By Contac t Referred To Contact Cardiology Diagnoses Atrial fibrillation with rapid ventricular response (CMS/HCC) Jeanna Oleary MD [address] [place] [address] Phone: tel: fax: Erasmo Daily MD [address] [place] [address] Phone: tel: fax: Referral ID Status Reason Start Date Expiration Date V isits Requested Visits Authorized [id number] Closed Specialty Services Required 03/20/2024 03/20/2025 1 1 Encounter Details Date Type Department Care Team (Late st Contact Info) Description 03/20/2024 Orders Only [facility] MED & PEDS [address] [place], [place] [phone] Jeanna Oleary MD [address] [place] [phone] Atrial fibrillation with rapid ventricular response (CMS/HCC) [...] [facility] MED & PEDS [address] [place] [address] Estefanía Cervantes, PharmD [address] [place] [address] Scheduled Referrals Name Type Priority Associated Diagnoses [...] documented as of this encounter Care Teams Cloth Hand Relationship Specialty Start Date End Date Jeanna Oleary MD [address] [place] [address] PCP - General Internal Medicine 12/19/16 Estefanía Cervantes PharmD [address] [place] [address] Pharmacist Internal Medicine 06/03/24 documented as of this encounter
--- OUTSIDE RECORDS SUMMARY | 2024-12-31 13:02 | XMS_ITS | Encounter Summary ---
Author Organization [employer] Address [address] [facility] 7t [place] [address] Care Team Providers Care Cementing Bulk Material Operator Name Role Phone Jeanna Oleary MD Primary Care Provider [phone] Estefanía Cervantes PharmD Unavailable [phone] Encounter Details Date Type Department Care Team (Late st Contact Info) Description 12/04/2023 Orders Only [facility] CHC MED & PEDS [address] [place], [place] [phone] Jeanna Oleary MD [address] [place] [address] Class 3 severe obesity due to excess calories without serious comorbidity with body mass index (BMI) of 40.0 to 44.9 in adult (CMS/HCC) (Primary Dx); Type 2 diabetes mellitus with hyperglycemia, with long-term current use of insulin ([facility]) Social History Tobacco Use Types Packs/Day Years [...] 9:00 AM EDT Telemedicine [facility] MED & PEDS [address] [place], [place] [phone] Estefanía Cervantes PharmD [address] [place], [place] [phone] documented as of this encounter Visit Diagnoses Diagnosis Class 3 severe obesity due to excess calories without serious comorbidity with body mass index (BMI) of 40.0 to 44.9 in adult- Primary Type 2 diabetes mellitus with hyperglycemia, with long-term current use of insulin ([facility]) documented in this encounter Additional Health Concerns Assessment Noted Time PHQ-9 Depression Total Score: 0 11/24/19 23 10:27 AM EDT documented as of this encounter Care Teams Cementing Bulk Material Operator Relationship Specialty Start Date End Date Jeanna Oleary MD [address] [place], [place] [phone] PCP - General Internal Medicine 12/19/16 Estefanía Cervantes PharmD [address] [place], [place] [phone] Pharmacist Internal Medicine 06/03/24 documented as of this encounter
== END 2024-12-31 13:05 | disposition home or self-care (01) ==
LOC: HO.HCS 12:35
PROVIDERS: PCP Internal Medicine; Visit Provider Internal Medicine
DX: I48.0 Paroxysmal atrial fibrillation (principal); E66.9 Obesity, unspecified; E11.9 Type 2 diabetes mellitus without complications
CPT/HCPCS: 99214; G2211

== ENCOUNTER → 2024-12-31 12:34 | Outpatient (BNVA) | payer MEDICARE, SELFPAY | PROVIDERS: PCP Internal Medicine; Visit Provider Internal Medicine | DX: E11.9 Type 2 diabetes mellitus without complications (principal); Z79.85 Long-term (current) use of injectable non-insulin antidiabetic drugs; Z86.79 Personal history of other diseases of the circulatory system; Z87.891 Personal history of nicotine dependence | CPT/HCPCS: 99212 ==

== ENCOUNTER 2025-02-12 09:54 | Outpatient (REF) | payer MEDICARE, SELFPAY ==
[2025-02-12 13:55] LABS: Cholesterol 103 mg/dL (<200); HDL Cholesterol 29 mg/dL (>40); Triglycerides 102 mg/dL (<150)
[2025-02-12 14:17] LABS: Hematocrit 48.8 % (42.0-52.0); Hemoglobin 15.5 g/dl (14.0-18.0); Mean Corpuscular HGB Conc 31.8 g/dl (31.0-36.0); Mean Corpuscular Hemoglobin 26.8 pg (27.0-33.0); Mean Corpuscular Volume 84.3 fL (80.0-98.0); NRBC Abs Auto 0.000 X10*3/uL (0.0-0.012); NRBC Pct Auto 0.0 /100WBC (0.0-0.2); Platelet Count 221 X10*3/uL (160-400); Red Blood Count 5.79 X10*6/uL (4.60-5.80); White Blood Count 5.1 X10*3/uL (4.8-10.8)
[2025-02-12 17:30] LABS: Prostate Specific Antigen 0.24 ng/mL (<0.05-4.0)
== END 2025-02-12 09:55 | disposition home or self-care (01) ==
LOC: HO.HMGCLDS 09:54
PROVIDERS: Absent Provider Urology; PCP Internal Medicine; Visit Provider Internal Medicine
DX: E11.65 Type 2 diabetes mellitus with hyperglycemia (principal); E29.1 Testicular hypofunction; Z12.5 Encounter for screening for malignant neoplasm of prostate; Z79.4 Long term (current) use of insulin
CPT/HCPCS: 36415; 80061; 84153; 84403; 85027

== ENCOUNTER 2025-02-25 09:32 | Outpatient (AMB) | payer MEDICARE, SELFPAY ==
--- NOTE | 2025-02-25 10:02 | A.OFFVIS_ITS ---
Intake Visit Reasons: testopel/labs Intake Note: Patient is present for TESTOPEL INSERTION Urology Medication:TESTOSTERONE Blood Thinner:none labs done 02/12/25: PSA 0.24, TT 755 Software Developer Mid Level Required: No Accompanied by: Spouse Allergies oxycodone (OXYCODONE) Adverse Reaction (Intermediate, Verified 02/25/25 10:03) HALLUCINATIONS, DIZZINESS simvastatin Adverse Reaction (Intermediate, Verified 02/25/25 10:03) myalgias elevated CPK HPI Comments Details: Jaime is a pleasant male. He is a patient of Dr. Oleary. He is here for the following urologic conditions - hypogonadism - erectile dysfunction Here for testosterone pellet placement Continued good response to pellet placement T7 55, hematocrit 48, PSA 0.2 Labs 1st cycle 2wk 490 10wk 464 2nd 550 - 320 3rd 650 - 600 4th - 02/28 755 Hct 48 P 0.2 Has lost 95 lb from [employer] Erectile dysfunction 2 piece prosthetic Capsulation of bulb Would recommend replacement prosthetic once weight loss complete Low testosterone Previously failed injections and gel and patches Gel did not bring T high enough Injections painful Patches caused dermatitis Trial testosterone pellets [facility] Medical History PAF (paroxysmal atrial fibrillation) Hyperplastic polyps of stomach Anemia Atrial fibrillation Hypertension Hyperlipidemia Type 2 diabetes mellitus Respiratory failure with hypoxia and hypercapnia COPD (chronic obstructive pulmonary disease) Nocturnal hypoxemia TAE (obstructive sleep apnea) Obesity (BMI 30-39.9) Personal history of nicotine dependence Cervical disc herniation Erectile dysfunction Gynecomastia Hypogonadism in male Sialolithiasis of submandibular gland COVID-19 vaccine series completed Surgical History History of cardiac ablation for atrial fibrillation History of umbilical hernia repair History of vasectomy History of colonoscopy History of appendectomy History of uvulopalatopharyngoplasty History of repair of right rotator cuff History of right knee surgery History of cardioversion History of cervical discectomy History of esophagogastroduodenoscopy (EGD) H/O prior ablation treatment (04/09/20) History of penile implant History of cholecystectomy Family History Father No problems noted. Mother No problems noted. Social History Household Members: Spouse Housing: House Are you a primary coronary care unit nurse to a significant other at home: No Do you presently have visiting nurse or other home services: No Alcohol intake: current Alcohol intake frequency: a few times a month Alcohol type: beer Patient Tobacco Use Status: Former Tobacco user Tobacco use type: Cigarette Cigarette Packs Per Day: 2.5 Cigarettes Per Day: 50.0 Years Smoked: 40 Review of Systems Const Denies chills and Denies fever(s) Card Reports no additional complaints and Denies syncope Resp Denies cough GI Denies abdominal pain and Denies heartburn Reports as per HPI and Denies change in libido Neuro Denies syncope Psych Denies change in libido Endo Denies change in libido Physical Exam Const General: cooperative, healthy appearing, comfortable and no acute distress Orientation/consciousness: patient oriented x3 HEENT Face and sinus: Yes normal facial exam Mouth: moist mucous membranes Neck Neck: Yes normal visual inspection, Yes full ROM and Yes trachea midline Chest Chest palpation & inspection: normal inspection of the chest Resp Effort & Inspection: normal respiratory effort, able to speak in complete sentences and no respiratory distress GI Inspection: Yes normal to inspection Back/Spine/Pelvis Cervical Spine: normal cervical lordosis Thoracic/Lumbar Spine: thoracic and lumbar spine normal to inspection Skin General skin exam: no rashes or lesions noted Neuro General: patient oriented x3, gait normal, tone normal and moves all extremities Extrem General: Yes normal to inspection and Yes capillary refill normal Office Procedures AMB Testopel Details: Testopel Placement Pre Op Diagnosis - Low testosterone Post Op Diagnosis - Low Testosterone Procedure: Testopel Insertion The patient was placed in right lateral position with right side down and left side up. The area over the right hip was cleaned with Betadine. A fenestrated drape was placed over the area. Lidocaine 2% was injected first as a skin wheal and then into the subcutaneous tissue directed in a fashion down towards the femur in the subcutaneous space to perform hydrodissection. The purpose of the injection is to numb the length of the trocar track. Testopel was prepared for insertion. Six Testopel pellets were removed from the individual glass containers and placed in a sterile container. This gave time for the lidocaine to work. A 11 Blade scapel was used to make a puncture incision into the subcutaneous space. The trocar with a sharp-ended stylet was inserted through the stab incision at a 45? angle and into the subcutaneous fat layer. The needle was flatten out and advanced leaving the pellet loading area exposed. 6 pellets were inserted using Adson forceps into the loading trocar in a V pattern. The blunt stylet was used to advance pellets into the tract while withdrawing the trocar - 4 pellets and 2 pellets placed in each arm of the V. Once completed the area was wiped with alchohol. Pressure was applied with a small gauze for 2-3 minutes. The trocar insertion site was closed with multiple steristrips and a 2x2 gauze placed with a tegaderm dressing placed. He tolerated the procedure well and was given instructions to remove the Tegaderm dressing in 48 hours. CPT 53986 J3490 Subcutaneous Hormone Pellet Insertion: 17586 Subq Hormone Pellet Insertion Office Meds Testopel 75 mg implant pellet Performing Provider: Willard Srinivasan MD [facility] Administered by: Willard Srinivasan MD on 02/25/25 12:57 Dose Route Admin Location Dispensed Lot Number Expiration Date NDC Motor Patrol Operator 75 mg implant 6 ea Total Dispensed Waste 6 ea 0 % Assessment & Plan Assessment & Plan (1) Erectile dysfunction: Code(s): N52.9 - Male erectile dysfunction, unspecified Category: Medical (2) Hypogonadism in male: Code(s): E29.1 - Testicular hypofunction Category: Medical Plan Three-month follow-up implant Orders: Orders AMB Testosterone Pellet Implant Today E29.1 - Testicular hypofunction Medications: Refilled testosterone (Testopel) . 75 mg implant ONCE 6 ea 5RF Patient Instructions: This note is constructed using voice recognition software. While every effort has been made to ensure accuracy calender machine operator errors may have been included. Imaging studies, laboratory and physical exam results were discussed and reviewed in detail. No major barriers to patient understanding were identified. An opportunity to ask questions regarding the treatment plan was provided. All questions were answered. The patient expressed understanding and agreement with the above treatment plan. The patient is aware they should contact our office by phone for worsening of their current condition or the appearance of new urologic symptoms. Compliance is encouraged with any medications and followup testing that is ordered. It is a privilege to participate in the urologic care of your patient. If you have any questions or concerns regarding treatment for the above conditions, or other urologic issues, please do not hesitate to contact me. The office telephone contact is [phone]. Sincerely, Dr Willard Srinivasan MD, [facility] - Urology Compassionate Specialist Care for the Genitourinary System Coding Level of Care Code Est Pt Level 3 (99990) Complex EM visit Add On G2211 Diagnoses Erectile dysfunction N52.9 Hypogonadism in male E29.1
== END 2025-02-25 11:07 | disposition home or self-care (01) ==
LOC: HO.HUSH 09:32
PROVIDERS: PCP Internal Medicine; Visit Provider Urology
DX: N52.9 Male erectile dysfunction, unspecified (principal); E29.1 Testicular hypofunction
CPT/HCPCS: 11980; 99213

== ENCOUNTER → 2025-02-25 09:32 | Outpatient (BNVA) | payer MEDICARE, SELFPAY | PROVIDERS: PCP Internal Medicine; Visit Provider Urology | DX: E29.1 Testicular hypofunction (principal); N52.9 Male erectile dysfunction, unspecified | CPT/HCPCS: 11980; 99212; J3490 ==

== ENCOUNTER 2025-03-01 09:49 | Emergency (ER) | payer MEDICARE, SELFPAY ==
--- OUTSIDE RECORDS SUMMARY | 2024-02-15 06:30 | XMS_ITS ---
Author Organization [facility] Address [address] [place] [address] Care Team Providers Care Insulator Apprentice Name Role Phone Richard Oleary MD Primary Care Provider Jas Sommer Unavailable [phone] Encounters Encounter Location Date Provider Diagnosis [address] [address] 02/15/2024 Jas Love Plan Of Treatment No Information Progress Notes * Jaime HAMLIN LupisDOB:[birth year] (69 yo M)Acc No.[id number]:02/15/2024 Progress Notes Patient: Jaime SPARKS Provider: Blanca Love DPM :1955 A ge:68 Y S ex:Male Date:02/15/2024 Address:[address] [place] [address] Pcp:Richard Oleary MD Subjective: * Chief Complaints: [...] DPM Date: Generated for Printi essence/Darek/eTransmitting on: 10:48 AM EDT
--- OUTSIDE RECORDS SUMMARY | 2025-02-20 05:00 | XMS_ITS ---
Author Organization [facility] Address [address] [place] [address] Care Team Providers Care Helper/Driver Name Role Phone Richard Oleary MD Primary Care Provider Jas Sommer Unavailable [phone] Encounters Encounter Location Date Provider Diagnosis [address] [address] 02/20/2025 Jas Love Plan Of Treatment No Information Progress Notes * Jaime HAMLINDOB:[birth year] (69 yo M)Acc No.[id number]:02/20/2025 Progress Note Patient: Jaime SPARKS Provider: Blanca Love DPM :1955 A ge:69 Y S ex:Male Date:02/20/2025 Address:[address] [place], [place] [address] Pcp:Richard Oleary MD Subjective: * Chief Complaints: [...] DPM Date: Generated for [employer]/Darek/eTransmitting on: 10:47 AM EDT
[2025-03-01 10:04] VITALS: BP 120/62; PULSE 97; RESP 18; TEMP 36.3; O2SAT 97; BMI 26.5
--- NOTE | 2025-03-01 10:30 | ED_ITS ---
HPI - General Adult General Chief complaint: Wound/Laceration Stated complaint: Bleeding Profusely Time Seen by Provider: 03/01/25 10:30 Source: patient and family (patient's ) Mode of arrival: ambulatory Limitations: no limitations History of Present Illness ED Provider: Neva Mcnamara PA-C HPI narrative: Patient is a 69 year old assigned male at with a history of paroxysmal atrial fib on xarelto, DM, COPD, TAE, CKD, and low testosterone presenting to the emergency department today with a right hip wound / laceration. Patient states that on 02/25/2025 he had a small incision on his right hip and testosterone pellets placed in his right hip as he has done several times before, by Dr. Srinivasan. Patient states that everything was OK then starting yesterday, he began to have bleeding from the site. Patient denies any other complaints at this time. Related Data Home Medications ?Medication ?Instructions ?Recorded ?Confirmed blood sugar diagnostic #10 ea 02/02/20 11/27/24 cholecalciferol (vitamin D3) 25 25 mcg PO DAILY 12/31/24 mcg (1,000 unit) tablet omeprazole 40 mg capsule,delayed 40 mg PO BID 02/02/20 12/31/24 release rosuvastatin 40 mg tablet 40 mg PO DAILY 02/02/2012/06 insulin syringe-needle U-100 0.3 #10 ea 03/15/2011/27 mL 31 gauge x 5/16 pen needle, diabetic 32 gauge x #50 ea 03/15/20/32 doxepin 25 mg capsule 1 - 2 cap PO BEDTIME 1 12/31/24 fexofenadine 180 mg tablet 180 mg PO DAILY 06/07/21 metoprolol succinate 25 mg 25 mg PO DAILY 10/31/22 tablet,extended release 24 hr flash glucose sensor (FreeStyle #1 ea 03/11/24 5 Yahir 2 Sensor kit) tirzepatide 15 mg/0.5 mL 15 mg subcut QWEEK 04/07/24 12/31/24 subcutaneous pen injector (Todd) gabapentin 800 mg tablet 800 mg PO TID 07/02/2412/31 rivaroxaban 20 mg tablet (Xarelto) 20 mg PO QPM 12/31/24 losartan 50 mg tablet 25 mg PO .evening 10/13/24 0 12/31/24 hydroxyzine HCl 50 mg tablet 50 mg PO DAILY PRN 12/31/24 Previous Rx's ?Medication ?Instructions ?Recorded testosterone 75 mg implant pellet 75 mg implant ONCE # 6 ea 02/25/25 (Testopel) Allergies Allergy/AdvReac Type Severity Reaction Status Date / Time oxycodone (OXYCODONE) AdvReac Intermediate HALLUCINATIONS, Verified 03/01/25 10:07 DIZZINESS simvastatin AdvReac Intermediate myalgias Verified 03/01/25 10:07 elevated CPK Review of Systems 2 Constitutional: Constitutional: Reports as per HPI Eyes: Eyes: Reports as per HPI ENT: Reports as per HPI Cardiovascular: Cardiovascular: Reports as per HPI Respiratory: Respiratory: Reports as per HPI Gastrointestinal: Gastrointestinal: Reports as per HPI Genitourinary: Genitourinary: Reports as per HPI Musculoskeletal: Musculoskeletal: Reports as per HPI Integumentary/Breasts: Skin/Breast: Reports as per HPI Neurologic: Reports as per HPI Psychiatric: Psychiatric: Reports as per HPI Endocrine: Endocrine: Reports as per HPI Hematologic/Lymphatic: Hematologic/Lymphatic: Reports as per HPI Allergic/Immunologic: Allergic/Immunologic: Reports as per HPI [facility] Past Medical History Attestation statement: The following information was validated with the patient. (all information validated with the patient's ) Source: old records reviewed, obtained from family (patient's provided additional history and confirmed the history provided by the patient. ) and nursing notes reviewed Medical History PAF (paroxysmal atrial fibrillation) Hyperplastic polyps of stomach Anemia Atrial fibrillation Hypertension Hyperlipidemia Type 2 diabetes mellitus Respiratory failure with hypoxia and hypercapnia COPD (chronic obstructive pulmonary disease) Nocturnal hypoxemia TAE (obstructive sleep apnea) Obesity (BMI 30-39.9) Personal history of nicotine dependence Cervical disc herniation Erectile dysfunction Gynecomastia Hypogonadism in male Sialolithiasis of submandibular gland COVID-19 vaccine series completed Surgical History History of cardiac ablation for atrial fibrillation History of umbilical hernia repair History of vasectomy History of colonoscopy History of appendectomy History of uvulopalatopharyngoplasty History of repair of right rotator cuff History of right knee surgery History of cardioversion History of cervical discectomy History of esophagogastroduodenoscopy (EGD) H/O prior ablation treatment (04/09/20) History of penile implant History of cholecystectomy Family History Family History Father No problems noted. Mother No problems noted. Social History Social History Household Members: Spouse Housing: House Are you a primary ambulatory care coordinator to a significant other at home: No Do you presently have visiting nurse or other home services: No Alcohol intake: current Alcohol intake frequency: a few times a month Alcohol type: beer Patient Tobacco Use Status: Former Tobacco user Tobacco use type: Cigarette Cigarette Packs Per Day: 2.5 Cigarettes Per Day: 50.0 Years Smoked: 40 Advance Directives: Yes Advance Directives Information Provided: Yes Advance Directives on File: No Physical Exam ED Vital Signs: Vital Signs - 24 hr 03/01/25 10:04 03/01/25 12:10 Temperature 97.4 F 97.4 F Pulse Rate 97 97 Respiratory Rate 18 18 Blood Pressure 120/62 120/62 Pulse Oximetry 97 97 Oxygen Delivery Method Room Air Room Air BMI result Body Mass Index 26.5 Const General: cooperative, no acute distress, alert and awake Nutritional Appearance: well nourished Orientation/consciousness: patient oriented x3 HENMT Head: Yes normal to inspection and Yes atraumatic Ears: hearing grossly normal bilaterally and external ears normal General nose exam: Normal external nose present, no nasal discharge noted and no epistaxis Face and sinus: Yes normal facial exam, No abrasion and No laceration Mouth: Normal oral and palatal mucosa present, no drooling and no muffled voice Eyes General: appearance normal, both eyes and all related structures Periorbital: periorbital findings normal Eyelids: Yes eyelids normal Conjunctivae: conjunctivae normal Pupils: Equal, round and reactive pupils present EOM: EOMs intact bilaterally Neck Neck: Yes normal visual inspection and Yes full ROM Resp Effort & Inspection: normal respiratory effort and able to speak in complete sentences Back/Spine/Pelvis Other: Neuro General: patient oriented x3, moves all extremities and CN's II-XI intact bilaterally Cranial nerves: Yes Equal, round and reactive pupils present Cognition (Neuro): normal cognition Extrem General: Yes full ROM and Yes capillary refill normal Psych Appearance: grossly normal Mental Status: mental status grossly normal Affect: normal affect Attitude: cooperative Thought process: Normal thought process present Thought content: Normal thought content present Insight: Good insight present (Psych) Procedures Laceration R hip laceration: Site: other (hip) Side (If applicable): right Size (cm): 1 Description: linear Depth: simple, single layer Local Anesthetic: lidocaine 1% Amount of anesthesia used (mL): 5 Pre-repair: wound explored and irrigated extensively Skin layer closed with: other (prolene) Size (cm): 4-0 Number of sutures: 2 Technique: simple, interrupted Medical Decision Making Medical Decision Making MDM Narrative: Patient is a 69 year old assigned male at with a history of paroxysmal atrial fib on xarelto, DM, COPD, TAE, CKD, and low testosterone presenting to the emergency department today with a right hip wound / laceration. Patient's physical exam was as noted in the physical exam portion of this note and consistent with a right hip laceration secondary to a procedure and a surrounding bruise in various stages of healing. Patient's blood work showed a platelet count of 150 but otherwise unremarkable. I spoke to Dr. Srinivasan, who recommended stitching the wound and pressure dressing it. I explained my physical exam findings as well as all test results to the patient and the patient's . I answered all questions asked by the patient and the patient's . Patient's laceration was repaired with (2) 4-0 prolene sutures, without incident. Patient's PMS was intact prior to and after laceration repair. I then applied a non-stick dressing with gauze and used an MAROCS wrap to apply compression. Patient's PMS was intact prior to and after dressing + MARCOS placement. Patient's bleeding was well controlled. I stressed the importance of the patient taking his medication as directed (either prescribed or as the over the counter packaging recommends). I stressed the importance of the patient following up with his primary care provider. I stressed the importance of the patient returning to the emergency department immediately if his symptoms were to worsen or if he were to develop any dizziness, shortness of breath, difficulty breathing, chest pain, blurry vision, loss of vision, nausea, vomiting, abdominal pain, fever, chills, back pain, or any other complaints. Patient and the patient's verbalized agreement and understanding with this treatment plan and discharge. Differential Diagnosis Differential Diagnoses: The differential diagnosis associated with the presentation includes Laceration Post-op wound Admission/Observation Consideration of admission/observation: Escalation of care including admission/observation considered Patient would have been admitted to the hospital had his work up had any findings where hospital admission was appropriate and his clinical presentation warranted hospital admission. Consult Healthcare Provider Management of the patient was discussed with: Sand Mill Operator (spoke with Dr. Srinivasan as noted in the MDM Rationale portion of this note. ) Lab Data [facility] Lab Attestation statement: I reviewed the patient's lab results. My interpretation of these results are in the MDM Rationale portion of this note. 03/01/25 11:02 03/01/25 11:02 Labs: Lab Results 03/01/25 Range/Units 11:02 WBC 4.6 L (4.8-10.8) X10*3/uL RBC 4.60 D (4.60-5.80) X10*6/uL Hgb 12.3 L D (14.0-18.0) g/dl Hct 38.5 L D (42.0-52.0) % MCV 83.7 (80.0-98.0) fL MCH 26.7 L (27.0-33.0) pg MCHC 31.9 (31.0-36.0) g/dl RDW 14.6 (11.0-16.0) % Plt Count 150 L D (160-400) X10*3/uL MPV 10.4 (9.4-12.4) fL Immature Gran % (Auto) 0.4 (0.0-0.4) % Neut % (Auto) 58.6 (45-73) % Lymph % (Auto) 29.8 (20-40) % Bradley % (Auto) 9.3 (2-11) % Eos % (Auto) 1.5 (0-4) % Baso % (Auto) 0.4 (0-2) % Lymph # (Auto) 1.4 (1.2-4.9) X10*3/uL Bradley # (Auto) 0.4 (0.1-1.2) X10*3/uL Eos # (Auto) 0.1 (0.0-0.4) X10*3/uL Baso # (Auto) 0.0 (0.0-0.2) X10*3/uL Abs Immat Gran (auto) 0.02 (0.00-0.03) X10*3/uL Absolute Neuts (auto) 2.7 (2.0-8.3) x10*3/uL Absolute Nucleated RBC 0.000 (0.0-0.012) X10*3/uL Nucleated RBC % (auto) 0.0 (0.0-0.2) /100WBC Sodium 137 (135-145) mmol/L Potassium 4.3 (3.3-5.1) mmol/L Chloride 106 (96-108) mmol/L Carbon Dioxide 24 (22-29) mmol/L Anion Gap 11 L (12-20) BUN 14 (9-16) mg/dL Creatinine 0.93 (0.5-1.4) mg/dL Estim Creat Clear Calc 71.5 Estimated GFR > 60 Random Glucose 156 H (60-115) mg/dL Calcium 8.9 D (8.4-10.2) mg/dL Total Bilirubin 0.4 (0.0-1.0) mg/dL AST 23 (5-37) U/L ALT 26 (0-40) U/L Alkaline Phosphatase 62 (39-117) U/L Total Protein 6.3 L (6.5-8.0) g/dL Albumin 3.7 (3.5-5.0) g/dL Independent Historian Clinical information obtained from an independent historian. History obtained from or confirmed by: Spouse (patient's provided additional history and confirmed the history provided by the patient) Discharge Plan Discharge Clinical Impression: Laceration of hip, Low platelet count Patient Disposition: Home, Self-Care Instructions: Care For Your Stitches (DC), Laceration (DC), Thrombocytopenia (ED) Additional Instructions: Your blood work today showed a low platelet count of 150. This is likely because you have been bleeding from your right hip wound which has now been repaired. You must follow up on this with your primary care provider. Leave the compression dressing in place UNLESS you develop numbness, tingling, change of feeling, or change of color in the right lower extremity. Then loosen the wrap. If you loosen the wrap and still have these symptoms, remove the wrap and proceed to your closest emergency department or call 911. Do NOT soak the sutured area. Have your sutures removed in 7-10 days (2 total). IF you are prescribed home medications and/or you are taking over the counter medications at home - it is very important you continue to do so as prescribed / directed unless told otherwise. Follow up with your primary care provider. Return to the emergency department immediately if your symptoms worsen or if you develop any numbness, tingling, dizziness, shortness of breath, difficulty breathing, chest pain, blurry vision, loss of vision, nausea, vomiting, abdominal pain, fever, chills, back pain, or any other complaints. Please see the information below about our Patient Portal. If you are not yet enrolled in the [facility] Patient Portal, you will receive an enrollment email invitation following your visit to any [facility] setting. You may also self-enroll in the Patient Portal by visiting our website: [email or web address] The following information is required to access the Patient Portal: - Your [facility] Medical Record Number - Your personal home email address (must match what is in your electronic medical record, Registration staff can assist with this) - Name - Date of Capabilities of the Patient Portal: - Message some providers - View upcoming appointments - Access your health summary, medical history, and visit history - View current conditions and allergies - View procedure and lab results - View your medications, including guidelines, side effects, and precautions - Complete pre-appointment questionnaires requested by your provider - Ready summary reports of your office visits and procedures To access the Patient Portal Mobile Willi, follow these directions: - Search [employer] in the Willi Store or Just Sing It Store - Download the Willi - Search for [facility] - Enter your login/password Prescriptions: No Action doxepin 25 mg capsule 1 - 2 cap PO BEDTIME Xarelto 20 mg tablet 20 mg PO QPM (DME) insulin syringe-needle U-100 0.3 mL 31 gauge x 5/16 syringe See Rx Instructions .ROUTE QID Qty: 10 Rx Instructions: As directed (DME) pen needle, diabetic 32 gauge x 5/32 needle See Rx Instructions .ROUTE .MEDSUPPLY Qty: 50 Rx Instructions: As directed (DME) blood sugar diagnostic Strip See Rx Instructions Not Applicable .MEDSUPPLY Qty: 10 Rx Instructions: As directed rosuvastatin 40 mg tablet 40 mg PO DAILY cholecalciferol (vitamin D3) 25 mcg (1,000 unit) tablet 25 mcg PO DAILY omeprazole 40 mg capsule,delayed release(DR/EC) 40 mg PO BID metoprolol succinate 25 mg tablet extended release 24 hr 25 mg PO DAILY fexofenadine 180 mg tablet 180 mg PO DAILY gabapentin 800 mg tablet 800 mg PO TID hydroxyzine HCl 50 mg tablet 50 mg PO DAILY PRN (DME) FreeStyle Yahir 2 Sensor Kit See Rx Instructions .ROUTE Q2W Qty: 1 Rx Instructions: As directed Mounjaro 15 mg/0.5 mL pen injector 15 mg subcut QWEEK losartan 50 mg tablet 25 mg PO .evening Testopel 75 mg pellet 75 mg implant ONCE Qty: 6 5RF Rx Instructions: . Referrals: Jeanna Oleary MD [Primary Care Provider, Medical] Interventions: ED Discharge Assessment Last Done: 03/01/25 12:10 Discharge Date/Time: 03/01/25 12:10 Print Language: [place] Helenian
--- OUTSIDE RECORDS SUMMARY | 2025-03-01 10:47 | XMS_ITS | Encounter Summary ---
Author Organization [employer] Address [address] [facility] [address] [place] [address] Care Team Providers Care Railroad Signal And Switch Operator Name Role Phone Jeanna Oleary MD Primary Care Provider [phone] Estefanía Cervantes PharmD Unavailable Reason for Visit * Reason Comments Med Refill Encounter Details Date Type Department Care Team ([facility] st Contact Info) Description 09/14/2023 Refill [facility] & PEDS [address] [place], [place] [phone] Jeanna Oleary MD [address] [place] [address] Type 2 diabetes mellitus without complications (CMS/HCC) [...] as of this encounter Plan of Treatment Not on file documented as of this encounter Visit Diagnoses Diagnosis Type 2 diabetes mellitus without complications (HCC) documented in this encounter Additional Health Concerns Assessment Noted Time PHQ-9 Depression Total Score: 0 11/24/19 23 10:27 AM EDT documented as of this encounter Care Teams Railroad Signal And Switch Operator Relationship Specialty Start Date End Date Jeanna Oleary MD [address] [place] [id number] PCP - General Internal Medicine 12/19/16 Estefanía Cervantes PharmD [address] [place] [address] Pharmacist Internal Medicine 06/03/24 01/25/25 documented as of this encounter
--- OUTSIDE RECORDS SUMMARY | 2025-03-01 10:47 | XMS_ITS | Encounter Summary ---
Author Organization [employer] Address [address] [facility] [address] [place] [address] Care Team Providers Care Proctologist Name Role Phone Jeanna Oleary MD Primary Care Provider [phone] Estefanía Cervantes PharmD Unavailable [phone] Reason for Visit * Reason Onset Date Comments Med Refill 12/02/2024 Encounter Details Date Type Department Care Team ([facility] st Contact Info) Description 12/02/2024 Telephone [facility] MED & PEDS [address] [place], [place] [phone] Jeanna Oleary MD [address] [place], [place] [phone] Med Refill Social History Tobacco Use Types [...] 9:57 AM EDT Medication was sent to [facility] on 09/04/24 with 3 refills. * Telephone Encounter - Diogenes Mckeon - 12/02/2024 9:45 AM EDT TC from pt requesting medication refill. Medications needing refill : Mounjaro 15 MG/0.5ML solution auto-injector To be sent to: [facility] [place] - [address] [facility] documented in this encounter Plan of Treatment Not on file documented as of this encounter Visit Diagnoses Not on filedocumented in this encounter Additional Health Concerns Assessment Noted Time PHQ-9 Depression Total Score: 3 06/16/19 10:59 AM EST documented as of this encounter Care Teams Proctologist Relationship Specialty Start Date End Date Jeanna Oleary MD [address] [place] [address] PCP - General Internal Medicine 12/19/16 Estefanía Cervantes, Gianni [address] [place] [id number] Pharmacist Internal Medicine 06/03/24 01/25/25 documented as of this encounter
--- OUTSIDE RECORDS SUMMARY | 2025-03-01 10:47 | XMS_ITS | Encounter Summary ---
Author Organization [employer] Address [address] [facility] [address] [place] [address] Care Team Providers Care E Commerce Web Developer Name Role Phone Jeanna Oleary MD Primary Care Provider [phone] Estefanía Cervantes PharmD Unavailable [phone] Encounter Details Date Type Department Care Team (Late st Contact Info) Description 09/05/2023 Orders Only [facility] MED & PEDS [address] [place], [place] [phone] Jeanna Oleary MD [address] [place] [address] Hyperkalemia (Primary Dx); Type 2 diabetes mellitus with hyperglycemia, with long-term current use of insulin ([facility]/HCC); Erectile disorder Social History Tobacco Use Types [...] as of this encounter Plan of Treatment Scheduled Orders Name Type Priority Associated Diagnoses Orde r Schedule Potassium Lab Routine Hyperkalemia Expected: 09/05/2023, Expires: 09/04/2024 documented as of this encounter Procedures Procedure Name Priority Date/Time Associated Diagnosis Comments TESTOSTERONE, FREE (DIALYSIS) AND TOTAL,MS Routine 10/03/2023 12:52 PM EDT Erectile disorder documented in this encounter Results * (ABNORMAL) Testosterone, Free (Dialysis) And Total, MS (10/03/2023 12:52 PM EDT) [facility] Testosterone, Total 98(A) 250 - 1100 ng/dL [facility] Comment:Men with clinically significant hypogonadalsymptoms and testosterone values repeatedly inthe range of the 200-300 ng/dL or less, maybenefit from testosterone treatment afteradequate risk and benefits counseling.For additional information, please refer [email or web address].[email or web address]/[email or web address](This link is being provided for informational/educational purposes only.)This test was developed and its analytical performancecharacteristics have been determined by [employer] [place], [place]. It hasnot been cleared or approved by the U.S. Food and DrugAdministration. This assay has been validated pursuantto the CLIA regulations and is used for clinicalpurposes. Testosterone, Free 14.7(A) 35.0 - 155.0 pg/mL [facility] Comment:This test was develo ped and its analytical performancecharacteristics have been determined by [employer] [place], [place]. It hasnot been cleared or approved by the U.S. Food and DrugAdministration. This assay has been validated pursuantto the CLIA regulations and is used for clinicalpurposes.THIS TEST WAS PERFORMED AT:[id number] [place] [id number] MCNEIL MD,PHD Blood Venous blood specimen / Unknown 10/03/2023 12:52 PM EDT 10/03/2023 4:32 PM EDT Jeanna Oleary MD LAB BLOOD ORDERABLES Final Result [facility] [address] [place] [address] [phone] documented in this encounter Visit Diagnoses Diagnosis Hyperkalemia- Primary Hyperpotassemia Type 2 diabetes mellitus with hyperglycemia, with long-term current use of insulin (HCC) Erectile disorder documented in this encounter Additional Health Concerns Assessment Noted Time PHQ-9 Depression Total Score: 0 11/24/19 23 10:27 AM EDT documented as of this encounter Care Teams E Commerce Web Developer Relationship Specialty Start Date End Date Jeanna Oleary MD [address] [place] [address] PCP - General Internal Medicine 12/19/16 Estefanía Cervantes PharmD [address] [place] [address] Pharmacist Internal Medicine 06/03/24 01/25/25 documented as of this encounter
--- OUTSIDE RECORDS SUMMARY | 2025-03-01 10:48 | XMS_ITS | Encounter Summary ---
Author Organization [employer] Address [address] [facility] 7[address] [place] [address] Care Team Providers Care Sales Service Manager Name Role Phone Jeanna Oleary MD Primary Care Provider [phone] Estefanía Cervantes PharmD Unavailable [phone] Encounter Details Date Type Department Care Team (Late st Contact Info) Description 07/11/2024 Orders Only [facility] MEDICINE [address] [place] [address] Jeanna Oleary MD [address] [place], [place] [phone] Hepatomegaly (Primary Dx); Primary osteoarthritis of other [...] on file documented as of this encounter Procedures Procedure Name Priority Date/Time Associated Diagnosis Comments US ABDOMEN WYATT W ELASTOGRAPHY Routine 08/20/2024 9:12 AM EDT documented in this encounter Results * US ABDOMEN WYATT W ELASTOGRAPHY (08/20/2024 9:12 AM EDT) Anatomical Region Laterality Modality Abdomen Ultrasound 08/20/2024 9:12 AM EDT Narrative 08/20/2024 10:08 AM EDT [place] [address] Ultrasound Report Signed Patient: Jaime Hamlin MR#: [id number] : 1955 Acct:[id number] Age/Sex: 69 / M ADM Date: 08/20/24 Loc: HO.US Attending Dr: Jeanna Oleary MD Ordering Physician: Jeanna Oleary MD Date of Service: 08/20/24 Procedure(s): US abdomen wyatt w elastography Accession Number(s): [id number] cc: Jeanna Oleary MD EXAMINATION: US ABDOMEN [...] 08/20/24 1005 DD/ 0912 TD/TT: 08/20/24 0935 Occupational Work Experience Teacher: Procedure Note Donotuseinterpreter, Image - 08/20/2024 [place] [address] Ultrasound Report Signed Patient: Jaime Hamlin JMR#: [id number] : 5Acct:[id number] Age/Sex: 69 / MADM Date: 08/20/24 Loc: HO.US Attending Dr: Jeanna Oleary MD Ordering Physician: Jeanna Oleary MD Date of Service: 08/20/24 Procedure(s): US abdomen wyatt w elastography Accession Number(s): [id number] cc: Jeanna Oleary MD EXAMINATION: US ABDOMEN [...] Radiologists in Ultrasound Liver Stiffness Thresholds (2019): LIVER STIFFNESS THRESHOLDS: *Shear wave velocity less [...] 08/20/24 1005 DD/ 0912 TD/TT: 08/20/24 0935 Occupational Work Experience Teacher: us Jeanna Oleary MD IMG US PROCEDURES Final Res ult documented in this encounter Visit Diagnoses Diagnosis Hepatomegaly- Primary Primary osteoarthritis of other site documented in this encounter Additional Health Concerns Assessment Noted Time PHQ-9 Depression Total Score: 3 06/16/19 25 10:59 AM EST documented as of this encounter Care Teams Sales Service Manager Relationship Specialty Start Date End Date Jeanna Oleary MD [address] [place] [address] PCP - General Internal Medicine 12/19/16 Estefanía Cervantes PharmD [address] [place] [address] Pharmacist Internal Medicine 06/03/24 01/25/25 documented as of this encounter
--- OUTSIDE RECORDS SUMMARY | 2025-03-01 10:48 | XMS_ITS | Encounter Summary ---
Author Organization [employer] Address [address] [facility] [place] [address] Care Team Providers Care Hazardous Substances Scientist Name Role Phone Jeanna Oleary MD Primary Care Provider [phone] Estefanía Cervantes PharmD Unavailable [phone] Reason for Visit * Reason Comments Med Refill Encounter Details Date Type Department Care Team (Late st Contact Info) Description 07/04/2022 Refill [facility] MEDICINE [address] [place] [address] Jeanna Oleary MD 505 [place], [place] [phone] Mixed simple and mucopurulent chronic bronchitis (CMS/HCC) [...] Diagnosis Mixed simple and mucopurulent chronic bronchitis (CMS/HCC) (HCC)- Primary Other chronic bronchitis Type 2 diabetes mellitus with hyperglycemia, with long-term current use of insulin (HCC) documented in this encounter Care Teams Hazardous Substances Scientist Relationship Specialty Start Date End Date Jeanna Oleary MD [address] [place] [phone] PCP - General Internal Medicine 12/19/16 Estefanía Cervantes PharmD [address] [place] [phone] Pharmacist Internal Medicine 06/03/24 01/25/25 documented as of this encounter
--- OUTSIDE RECORDS SUMMARY | 2025-03-01 10:48 | XMS_ITS | Clinical Summary ---
Author Organization [employer] Address [address] [facility] 7t [place] [address] Care Team Providers Care Commercial Real Estate Broker Name Role Phone Jeanna Oleary MD Primary Care Provider [phone] Allergies Active Allergy Reactions Criticality Noted Date Comments Hydroxyzine 08/16/2022 Other reaction(s): ITCHY Other reaction(s): ITCHY Medications glucose-vitamin C 4-6 GM-MG oral gel 1 tab as needed if FS less than 70 mg/dl 01/07/20 20 Active fexofenadine (Yadira) 180 MG tabletIndications :Pruritus, unspecified TAKE ONE TABLET BY MOUTH EVERY DAY 90 tablet 1 01/30/20 23 Active OneTouch Ultra Test test stripIndications: Type 2 diabetes mellitus without complications (HCC) TEST BLOOD SUGAR SIX TIMES DAILY 200 strip 5 09/14/19 24 Active Ostomy Supplies (Skin Prep Wipes) miscIndications:T ype 2 diabetes mellitus with hyperglycemia, with long-term current use of insulin ([facility]) To wipe the skin prior to applying the sensor 2 times a month 50 each 09/20/19 24 Active omeprazole (PriLOSEC) [address] capsule TAKE ONE CAPSULE BY MOUTH TWICE DAILY BEFORE MEALS 180 capsule 3 03/28/20 24 Active metoprolol succinate XL (Toprol-XL) 25 MG 24 hr tablet TAKE ONE TABLET EVERY MORNING 90 tablet 3 04/09/20 24 Active Xarelto 20 MG tablet TAKE ONE TABLET DAILY WITH SUPPER 90 tablet 3 04/09/20 24 Active Ferrous Sulfate (iron) 325 (65 Fe) MG tablet TAKE ONE TABLET EVERY DAY 30 tablet 3 06/04/19 25 Active Continuous Glucose Sensor (FreeStyle Yahir 2 Plus Sensor) miscIndications:T ype 2 diabetes mellitus with hyperglycemia, with long-term current use of insulin ([facility]) 1 each Once per day. 2 each 11 06/03/19 25 Active rosuvastatin (Crestor) 40 MG tabletIndications :Hypercholesterol emia TAKE ONE TABLET BY MOUTH EVERY DAY 90 tablet 5 07/15/19 25 Active gabapentin (Neurontin) 800 MG tablet TAKE ONE TABLET BY MOUTH THREE TIMES DAILY 270 tablet 1 10/04/19 25 Active hydrOXYzine HCl (Atarax) 50 MG tabletIndications :Pruritus, unspecified TAKE ONE TABLET FOUR TIMES DAILY 120 tablet 5 11/27/19 25 Active doxepin (SINEquan) 25 MG capsuleIndication s:Pruritus, unspecified TAKE 1 TO 2 CAPSULES EVERY NIGHT AT BEDTIME 60 capsule 5 11/27/19 25 Active Mounjaro 15 MG/0.5ML solution auto-injectorIndi cations:Class 3 severe obesity due to excess calories without serious comorbidity with body mass index (BMI) of 40.0 to 44.9 in adult ([facility]),Type 2 diabetes mellitus with hyperglycemia, with long-term current use of insulin ([facility]) inject 15 mg's SUBCUTANEOUSLY ONCE WEEKLY 2 mL 3 12/26/19 25 Active cholecalciferol (Vitamin D-3) 25 MCG tabletIndications :Vitamin D deficiency TAKE ONE TABLET DAILY 90 tablet 1 12/27/19 25 Active Diclofenac Sodium 1 % gelIndications:Ta il bone pain To apply to the affected area 3 times a day 50 g 12/30/19 25 Active losartan (Cozaar) 25 MG tabletIndications :Benign hypertension Take 1 tablet (25 mg) by mouth Once per day. 90 tablet 01/27/20 25 Active Active Problems Problem Noted Date Diagnosed Date Atrial fibrillation with rap id ventricular response ([facility]) 09/29/2021 Benign hypertension 09/29/2021 Gastroesophageal reflux disease 06/20/2021 Obstructive sleep apnea syndrome 06/20/2021 Injury of kidney 06/20/2021 Hyperlipidemia 06/20/2021 Osteoarthritis 06/20/2021 Pulmonary hypertension ([facility]) 06/20/2021 Stage 3a chronic kidney disease ([facility]) 2020 Gastric polyposis 12/02/2019 Obesity 04/18/2017 Chronic obstructive lung disease 12/19/2016 Diabetic neuropathy 12/19/2016 Type 2 diabetes mellitus 12/19/2016 Encounters Date Type Department Care Team Description 02/12/2025 Results Follow-Up [facility] MED & PEDS [address] [place] [address] Jeanna Oleary MD CBC 02/12/2025 Orders Only GENERIC EXTERNAL DATA DEPARTMENT Provider, Generic External Data 01/26/2025 9:00 AM EDT Telemedicine [facility] P[facility] [address] [place] [address] Estefanía Cervantes PharmD Type 2 diabetes mellitus without complication, without long-term current use of insulin (CMS/HCC) (Primary Dx); Benign hypertension 01/26/2025 Travel 12/29/2024 11:30 AM EDT Office Visit [facility] [address] [place] [address] Jeanna Oleary MD Type 2 diabetes mellitus with hyperglycemia, with long-term current use of insulin (CMS/HCC) (Primary Dx); Benign hypertension; Atrial fibrillation with rapid ventricular response (CMS/HCC); Tail bone pain; Encounter for immunization 12/29/2024 Travel 12/26/2024 Refill [facility]ICINE [address] [place] [address] Jeanna Oleary MD Vitamin D deficiency 12/25/2024 Refill [facility] P[facility] [address] [place] [address] Jeanna Oleary MD Class 3 severe obesity due to excess calories without serious comorbidity with body mass index (BMI) of 40.0 to 44.9 in adult; Type 2 diabetes mellitus with hyperglycemia, with long-term current use of insulin (CMS/HCC) 12/17/2024 Telephone [facility]ICINE [address] [place] [address] Jeanna Oleary MD Med Refill 12/02/2024 Telephone [facility] P[facility] [address] [place] [address] Jeanna Oleary MD Med Refill from Last 3 Months Immunizations Immunization Administration [...] 12/29/2024 11:29 AM EDT Plan of Treatment Health Maintenance Due Date Last Done Comments CT Colonography 1955 FIT DNA/Cologuard 1955 FIT 1955 FOBT 1955 Sigmoidoscopy 1955 Diabetes: Foot Exam 1964 Hepatitis A Vaccines (1 of 2 - Risk 2-dose series) 1973 Eye Exam 02/08/2024 02/07/2023 Influenza Vaccine (#1) 2025 , 01/19/2023, 02/07/2022, Additional history exists Diabetes: Urine Protein Screening 06/13/2025 06/13/2024, 03/25/2024, 12/11/2022, Additional history exists Alcohol/Substance Use Screening 06/16/2025 06/16/2024 Depression Screening 06/16/2025 06/16/2024, 06/16/19 SDOH Screening 06/16/2025 06/16/2024 Diabetes: Hemoglobin A1C 07/01/2025 025, 06/16/2024, 02/20/2024, Additional history exists DTaP/Tdap/Td Vaccines (2 - Td or Tdap) 11/08/2025 11/09/2015 Tobacco Screening 12/29/2025 12/29/2024 Lipid Panel 02/12/2026 02/12/2025, 11/26/2023 Colonoscopy 02/16/2028 02/15/2023 Colorectal Cancer Screening 02/16/2028 [...] Comments TESTOSTERONE, TOTAL, MALES (ADULT), IA Routine 02/12/2025 10:29 AM EDT CBC Routine 02/12/2025 10:29 AM EDT LIPID PANEL, STANDARD Routine 02/12/2025 10:29 AM EDT Type 2 diabetes mellitus with hyperglycemia, with long-term current use of insulin ([facility]) PSA, TOTAL Routine 02/12/2025 10:09 AM EDT POCT GLUCOSE Routine 12/29/2024 12:01 PM EDT Type 2 diabetes mellitus with hyperglycemia, with long-term current use of insulin ([facility]) POCT GLYCATED HEMOGLOBIN, TOTAL Routine 12/29/2024 11:58 AM EDT Type 2 diabetes mellitus with hyperglycemia, with long-term current use of insulin ([facility]) HEPATITIS PANEL, GENERAL Routine 08/14/2024 12:02 PM EDT Transaminitis ALBUMIN, RANDOM URINE W/CREATININE Routine 06/13/2024 10:55 AM EST COLONOSCOPY Routine 02/15/2023 DIABETES EYE EXAM Routine 02/07/2023 from Last 3 Months or Most Recently Relevant to Health Maintenance Results * (ABNORMAL) CBC (02/12/2025 10:29 AM EDT) White Blood Count 5.1 4.8 - 10.8 X10*3/uL [facility] Red Blood Count 5.79 4.60 - 5.80 X10*6/uL [facility] Hemoglobin 15.5 14.0 - 18.0 g/dl [facility] Hematocrit 48.8 42.0 - 52.0 % [facility] Mean Corpuscular Volume 84.3 80.0 - 98.0 fL [facility] Mean Corpuscular Hemoglobin 26.8(L) 27.0 - 33.0 pg [facility] Mean Corpuscular HGB Conc 31.8 31.0 - 36.0 g/dl [facility] Red Cell Distribution Width 14.7 11.0 - 16.0 % [facility] Platelet Count 221 160 - 400 X10*3/uL [facility] Mean Platelet Volume 10.6 9.4 - 12.4 fL [facility] NRBC Pct Auto 0.0 0.0 - 0.2 /100WBC [facility] NRBC Abs Auto 0.000 0.0 - 0.012 X10*3/uL [facility] 02/12/2025 10:2 9 AM EDT 02/12/2025 1:17 PM EDT us Generic External Data Provider LAB BLOOD ORDERAB LES Final Result [facility] [address] [place] [phone] * Testosterone, Total, males (Adult), IA (02/12/2025 10:29 AM EDT) Testosterone, Total 755 250 - 1100 ng/dL [facility] Comment:Men with clinically significant hypogonadalsymptoms and testosterone values repeatedly inthe range of the 200-300 ng/dL or less, maybenefit from testosterone treatment afteradequate risk and benefits counseling.For additional information, please refer [email or web address](This link is being provided for informational/educational purposes only.)This test was developed and its analytical performancecharacteristics have been determined by [employer] [place], [place]. It hasnot been cleared or approved by the U.S. Food and DrugAdministration. This assay has been validated pursuantto the CLIA regulations and is used for clinicalpurposes.THIS TEST WAS PERFORMED AT:[employer]/[facility] [id number] [place] [phone] MCNEIL MD,PHD 02/12/2025 10:2 9 AM EDT 02/12/2025 1:18 PM EDT us Generic External Data Provider LAB BLOOD ORDERAB LES Final Result Performing Organization Address City/[facility]/ZIP Co de Phone Number [facility] [address] [place] [phone] * (ABNORMAL) Lipid Panel, Standard (02/12/2025 10:29 AM EDT) Triglycerides 102 <150 mg/dL [facility] Comment:Desirable Triglyceri de: less than 150 mg/dLBorderline High Triglyceride 150-199 mg/dLHigh Triglyceride: 200-499 mg/dLVery High Triglyceride: greater than or equal to 5OO mg/dL Cholesterol 103 <200 mg/dL [facility] Comment:Desirable Cholestero l: less than 200 mg/dLBorderline High Cholesterol: 200-239 mg/dLHigh Cholesterol: greater than 239 mg/dL LDL Cholesterol Calculated 54 <100 mg/dL [facility] Comment:Desirable LDL: less than 100 mg/dLNear Optimal/Above Optimal LDL: 110- 129 mg/dLBorderline High LDL: 130-159 mg/dLHigh LDL: 160-189 mg/dLVery High LDL: greater than or equal to 190 mg/dL HDL Cholesterol 29(L) >40 mg/dL [facility] Comment:Desirable HDL: great er than 40 mg/dL Note: This HDL assay may give artificially low results in patients with liver disease. Blood Venous blood specimen / Unknown 02/12/2025 10:29 AM EDT 02/12/2025 1:18 PM EDT us Jeanna Oleary MD LAB BLOOD ORDERABLES Final Result Performing Organization Address City/[facility]/ZIP Co de Phone Number [facility] [address] [place] [address] [phone] * PSA,Total (02/12/2025 10:09 AM EDT) Pathologist [facility] Prostate Specific Antigen 0.24 <0.05 - 4.0 ng/mL [facility] Comment:PSA methodology: Angel Perez i ChemiluminescentMicroparticle Immunoassay (CMIA) 02/12/2025 10:0 9 AM EDT 02/12/2025 4:46 PM EDT us Generic External Data Provider LAB BLOOD ORDERAB LES Final Result [facility] [address] [place] [phone] * POCT Glucose (12/29/2024 12:01 PM EDT) [facility] Glucose Blood, POC 179 60 - 200 mg/dL QC Media Lot # [id number] Lot# Expiration Date Comment:random Blood Capillary blood specimen / Unknown 12/29/2024 12:01 PM EDT us Jeanna Oleary MD POINT OF CARE TEST ENTER/ED IT ORDERABLES Final Result * (ABNORMAL) POCT HGB A1C (12/29/2024 11:58 AM EDT) [facility] Hemoglobin A1C 6.1(A) 4.0 - 5.7 % QC Media Lot # [id number] Lot# Expiration Date [id number] Blood 12/29/2024 11:5 8 AM EDT us Jeanna Oleary MD POINT OF CARE TEST ENTER/ED IT ORDERABLES Final Result * Hepatitis A,B,C Profile (08/14/2024 12:02 PM EDT) [facility] Hepatitis A IgM Nonreactive Nonreactive [facility] Comment:IgM antibodies to MEDEL V not detected; does not exclude earlyacute or recovered HAV infection. ~Hepatitis B Surface Antibody NONREACTIVE Nonreactive [facility] Comment:Nonreactive: < 8.00 mIU/mL Hepatitis B Core Antibody Nonreactive Nonreactive [facility] Hepatitis C Antibody Nonreactive Nonreactive [facility] Comment:Antibodies to HCV no t detected; does not exclude early acuteHCV infection. Hepatitis B Surface Ag Negative Negative [facility] Blood Venous blood specimen / Unknown 08/14/2024 12:02 PM EDT 08/14/2024 1:22 PM EDT us Jeanna Oleary MD LAB BLOOD ORDERABLES Final Result Performing Organization Address [facility] de Phone Number [facility] [address] [place] [phone] * (ABNORMAL) Albumin, Random Urine W/Creatinine (06/13/2024 10:55 AM EST) Creatinine, Urine 87.64 mg/dL [facility] Microalbumin Urine 450.0 mg/L [facility] Microalbum Creatinine Ratio Ur 513.4(H) <30 ug/mg cr [facility] Comment:Albumin/Creatinine R atio Reference Ranges: Normal: < 30 ug/mg creatinine Microalbuminuria: 30 - 300 ug/mg creatinineClinical Albuminuria: > 300 ug/mg creatinine 06/13/2024 10:5 5 AM EST 06/13/2024 1:21 PM EST us Jeanna Oleary MD LAB URINE ORDERABLES Final Result Performing Organization Address [facility] Co de Phone Number [facility] [address] [place] [phone] * (ABNORMAL) Colonoscopy (02/15/2023) Anatomical Region Laterality Modality Endoscopy Narrative 02/15/2023 Diverticulosis of sigmoid colon. Internal hemorrhoids. Done by Dr Kirby Lomax. Repeat Colonoscopy in 5 years. Jeanna Oleary MD ENDOSCOPY PROCEDURE ORDERAB LES Final Result * Hm Diabetes Eye Exam (02/07/2023) Eye Exam Normal Normal Narrative Мария Prabhakar [place] - 02/07/2023 No diabetic retinopathy Jeanna Oleary MD HEALTH MAINTENANCE Final Re sult from Last 3 Months or Most Recently Relevant to Health Maintenance [place] [address] [place] [address] MEDICARE ADVANTAGE HMO Care Teams Commercial Real Estate Broker Relationship Specialty Start Date End Date Jeanna Oleary MD [address] [place] [phone] PCP - General Internal Medicine 12/19/16
--- OUTSIDE RECORDS SUMMARY | 2025-03-01 10:48 | XMS_ITS | Encounter Summary ---
Author Organization [employer] Address [address] [facility] [address] [place] [address] Care Team Providers Care Kiln Repairer Name Role Phone Jeanna Oleary MD Primary Care Provider [phone] Estefanía Cervantes PharmD Unavailable [phone] Reason for Referral * Consultation (Routine) - Authorized Specialty Diagnoses / Procedures Referred By Contac t Referred To Contact Gastroenterology Diagnoses Other cirrhosis of liver (HCC) Jeanna Oleary MD [address] [place] [phone] Phone: tel: fax: Linda Shah MD [address] [place] [address] [address] [place] [address] Phone: tel: fax: Referral ID Status Reason Start Date Expiration Date Visits Requested Visits Authorized [id number] Authorized Specialty Services Required 08/20/2024 08/20/2025 1 1 Encounter Details Date Type Department Care Team (Late st Contact Info) Description 08/20/2024 Orders Only [facility] [address] [place], [place] [phone] Jeanna Oleary MD [address] [place] [phone] Other cirrhosis of liver (CMS/HCC) (Primary Dx) [...] of this encounter Plan of Treatment Scheduled Referrals Name Type Priority Associated Diagnoses Order Schedule Referral to Gastroenterology Outpatient Referral Routine Other cirrhosis of liver (CMS/HCC) Expected: 08/20/2024 (Approximate), Expires: 08/20/2025 documented as of this encounter Visit Diagnoses Diagnosis Other cirrhosis of liver (HCC)- Primary documented in this encounter Additional Health Concerns Assessment Noted Time PHQ-9 Depression Total Score: 3 06/16/19 25 10:59 AM EST documented as of this encounter Care Teams Kiln Repairer Relationship Specialty Start Date End Date Jeanna Oleary MD [address] [place] [address] PCP - General Internal Medicine 12/19/16 Estefanía Cervantes PharmD [address] [place] [address] Pharmacist Internal Medicine 06/03/24 01/25/25 documented as of this encounter
--- OUTSIDE RECORDS SUMMARY | 2025-03-01 10:48 | XMS_ITS | Encounter Summary ---
Author Organization [employer] Address 75 [facility] 7t [place] [address] Care Team Providers Care Pharmacology Associate Name Role Phone Jeanna Oleary MD Primary Care Provider [phone] Estefanía Cervantes PharmD Unavailable [phone] Encounter Details Date Type Department Care Team (Late st Contact Info) Description 01/29/2024 Orders Only [facility]S [address] [place], [place] [phone] Jeanna Oleary MD [address] [place] [address] Class 3 severe obesity due to excess calories without serious comorbidity with body mass index (BMI) of 40.0 to 44.9 in adult (CMS/HCC) (Primary Dx); Type 2 diabetes mellitus with hyperglycemia, with long-term current use of insulin ([facility]) Social History Tobacco Use Types [...] (BMI) of 40.0 to 44.9 in adult (HCC)- Primary Type 2 diabetes mellitus with hyperglycemia, with long-term current use of insulin (HCC) documented in this encounter Additional Health Concerns Assessment Noted Time PHQ-9 Depression Total Score: 0 11/24/19 23 10:27 AM EDT documented as of this encounter Care Teams Pharmacology Associate Relationship Specialty Start Date End Date Jeanna Oleary MD [address] [place] [address] PCP - General Internal Medicine 12/19/16 Estefanía Cervantes PharmD [address] [place] [address] Pharmacist Internal Medicine 06/03/24 01/25/25 documented as of this encounter
--- OUTSIDE RECORDS SUMMARY | 2025-03-01 10:48 | XMS_ITS | Encounter Summary ---
Author Organization [employer] Address [address] [facility] [address]t [place] [address] Care Team Providers Care Channel Lip Wetter Name Role Phone Jeanna Oleary MD Primary Care Provider [phone] Estefanía Cervantes PharmD Unavailable [phone] Encounter Details Date Type Department Care Team (Late st Contact Info) Description 01/01/2024 Orders Only [facility] [address] [place], [place] [phone] Jeanna Oleary MD [address] [place], [place] [phone] Type 2 diabetes mellitus with hyperglycemia, with long-term current use of insulin ([facility]) (Primary Dx) Social History [...] hyperglycemia, with long-term current use of insulin (HCC)- Primary documented in this encounter Additional Health Concerns Assessment Noted Time PHQ-9 Depression Total Score: 0 11/24/19 23 10:27 AM EDT documented as of this encounter Care Teams Channel Lip Wetter Relationship Specialty Start Date End Date Jeanna Oleary MD [address] [place] [address] PCP - General Internal Medicine 12/19/16 Estefanía Cervantes PharmD [address] [place] [address] Pharmacist Internal Medicine 06/03/24 01/25/25 documented as of this encounter
--- OUTSIDE RECORDS SUMMARY | 2025-03-01 10:48 | XMS_ITS | Encounter Summary ---
Author Organization [employer] Address 75 [facility] 7t [place] [address] Care Team Providers Care Food Production Supervisor Name Role Phone Jeanna Oleary MD Primary Care Provider [phone] Estefanía Cervantes PharmD Unavailable [phone] Encounter Details Date Type Department Care Team (Late st Contact Info) Description 11/07/2023 Orders Only [facility] CHC MED & PEDS [address] [place], [place] [phone] Jeanna Oleary MD [address] [place], [place] [phone] Type 2 diabetes mellitus with hyperglycemia, with long-term current use of insulin ([facility]) (Primary Dx) Social History Tobacco [...] documented as of this encounter Care Teams Food Production Supervisor Relationship Specialty Start Date End Date Jeanna Oleary MD [address] [place] [address] PCP - General Internal Medicine 12/19/16 Estefanía Cervantes PharmD [address] [place] [address] Pharmacist Internal Medicine 06/03/24 01/25/25 documented as of this encounter
--- OUTSIDE RECORDS SUMMARY | 2025-03-01 10:48 | XMS_ITS | Patient Health Record ---
Author Organization [facility] kumar [place] Address [address] [place] [address] Care Team Providers Care Furniture Installer Name Role Phone Richard Oleary MD Primary Care Provider Jas Sommer Unavailable [phone] Allergies No Known Allergies Reason For Referral No Information Medications Medication [...] Problem Acquired hammer toe of right foot (5340424984042 105) Other hammer toe(s) (acquired), right foot (M20.41) Active confirmed Problem Acquired hammer toe of left foot (5300467407816 103) Other hammer toe(s) (acquired), left foot (M20.42) Active confirmed Problem Type 2 diabetes mellitus with peripheral angiopathy (251020118) Type 2 diabetes mellitus with diabetic peripheral angiopathy without gangrene (E11.51) Active confirmed Q7(A), Q8(2B), Q9(1B,2C) Encounters Encounter Location Date Provider Diagnosis [facility] [place] [address] [place] [phone] 02/18/2025 Jas Love Plan Of Treatment Pending Test Test Name Order Date X ray : Foot, left 3V 02/22/2024 Insurance Providers Payer Name Payer Address Payer Phone Subscriber Number Group Number Insured Name Patient Relationship to Insured Coverage Start Date Coverage End Date Medicare National Govt Svcs Inc [address] [facility] [place] [address] [id number] Jaime Hamlin Self - patient is the insured 7 [employer] Blue Shield [address] [place] [address] [id number] Jaime Hamlin Self - patient is the insured Medical (General) History Medical History History ICD Code covid-19 Diabetic Heart disease High blood pressure Kidney disease Reflux ( GERD) Stomach ulcer Surgical History Surgery Date(Month/Year) Gall bladder removal
--- OUTSIDE RECORDS SUMMARY | 2025-03-01 10:48 | XMS_ITS | Encounter Summary ---
Author Organization [employer] Address 75 [facility] 7 [place] [address] Care Team Providers Care Core Measures Abstractor Name Role Phone Jeanna Oleary MD Primary Care Provider [phone] Estefanía Cervantes PharmD Unavailable [phone] Reason for Referral * Consultation (Routine) - Closed Specialty Diagnoses / Procedures Referred By Contac t Referred To Contact Endocrinology Diagnoses Hypogonadism male Jeanna Oleary MD [address] [place] [address] Phone: tel: fax: [facility] [address] [place] [address] Phone: tel: fax: Referral ID Status Reason Start Date Expiration Date V isits Requested Visits Authorized [id number] Closed Specialty Services Required 10/11/2023 10/10/2024 1 1 Encounter Details Date Type Department Care Team (Late st Contact Info) Description 10/11/2023 Orders Only [facility] CHC MED & PEDS [address] [place] [address] Jeanna Oleary MD [address] [place] [address] Hypogonadism male (Primary Dx) Social History Tobacco [...] Testosterone, Total 94(A) 250 - 1100 ng/dL [facility] Comment:Men with clinically significant hypogonadalsymptoms and testosterone values repeatedly inthe range of the 200-300 ng/dL or less, maybenefit from testosterone treatment afteradequate risk and benefits counseling.For additional information, please refer [email or web address](This link is being provided for informational/educational purposes only.)This test was developed and its analytical performancecharacteristics have been determined by [employer] [place], [place]. It hasnot been cleared or approved by the U.S. Food and DrugAdministration. This assay has been validated pursuantto the CLIA regulations and is used for clinicalpurposes.THIS TEST WAS PERFORMED AT:[employer] [id number] [place] [address]RONPWFILEONORA MCNEIL MD,PHD Blood Venous blood specimen / Unknown 10/16/2023 2:12 PM EDT 10/16/2023 5:54 PM EDT Jeanna Oleary MD LAB BLOOD ORDERABLES Final Result [facility] [address] [place] [address] [phone] documented in this encounter Visit Diagnoses Diagnosis Hypogonadism male- Primary Other testicular hypofunction documented in this encounter Additional Health Concerns Assessment Noted Time PHQ-9 Depression Total Score: 0 11/24/19 23 10:27 AM EDT documented as of this encounter Care Teams Core Measures Abstractor Relationship Specialty Start Date End Date Jeanna Oleary MD [address] [place] [address] PCP - General Internal Medicine 12/19/16 Estefanía Cervantes PharmD [address] [place] [address] Pharmacist Internal Medicine 06/03/24 01/25/25 documented as of this encounter
--- OUTSIDE RECORDS SUMMARY | 2025-03-01 10:48 | XMS_ITS | Encounter Summary ---
Author Organization [employer] Address 75 [facility] 7t [place] [address] Care Team Providers Care School Library Media Program Director Name Role Phone Jeanna Oleary MD Primary Care Provider [phone] Estefanía Cervantes PharmD Unavailable [phone] Encounter Details Date Type Department Care Team (Late st Contact Info) Description 06/16/2024 Orders Only [facility] CHC MED & PEDS [address] [place], [place] [phone] Jeanna Oleary MD 505 [place] [address] Social History Tobacco Use Types Packs/Day Years [...] documented as of this encounter Care Teams School Library Media Program Director Relationship Specialty Start Date End Date Jeanna Oleary MD [address] [place] [address] PCP - General Internal Medicine 12/19/16 Estefanía Cervantes PharmD [address] [place] [address] Pharmacist Internal Medicine 06/03/24 01/25/25 documented as of this encounter
--- OUTSIDE RECORDS SUMMARY | 2025-03-01 10:48 | XMS_ITS | Encounter Summary ---
Author Organization [employer] Address 75 [facility] 7t [place] [address] Care Team Providers Care Courtesy Booth Cashier Name Role Phone Jeanna Oleary MD Primary Care Provider [phone] Estefanía Cervantes PharmD Unavailable [phone] Encounter Details Date Type Department Care Team (Late st Contact Info) Description 12/04/2023 Orders Only [facility] CHC MED & PEDS [address] [place], [place] [phone] Jeanna Oleary MD [address] [place] [address] Class 3 severe obesity due to excess calories without serious comorbidity with body mass index (BMI) of 40.0 to 44.9 in adult (CMS/HCC) (Primary Dx); Type 2 diabetes mellitus with hyperglycemia, with long-term current use of insulin ([facility]) Social History Tobacco Use Types Packs/Day [...] documented as of this encounter Care Teams Courtesy Booth Cashier Relationship Specialty Start Date End Date Jeanna Oleary MD [address] [place] [address] PCP - General Internal Medicine 12/19/16 Estefanía Cervantes PharmD [address] [place] [address] Pharmacist Internal Medicine 06/03/24 01/25/25 documented as of this encounter
--- OUTSIDE RECORDS SUMMARY | 2025-03-01 10:48 | XMS_ITS | Encounter Summary ---
Author Organization [employer] Address 75 [facility] 7 [place] [address] Care Team Providers Care Heel Seat Flap Stapler Name Role Phone Jeanna Oleary MD Primary Care Provider [phone] Estefanía Cervantes PharmD Unavailable [phone] Reason for Referral * Consultation (Routine) - Closed Specialty Diagnoses / Procedures Referred By Contac t Referred To Contact Cardiology Diagnoses Atrial fibrillation with rapid ventricular response (CMS/HCC) (HCC) Jeanna Oleary MD [address] [place] [address] Phone: tel: fax: Erasmo Daily MD [address] [place] [address] Phone: tel: fax: Referral ID Status Reason Start Date Expiration Date V isits Requested Visits Authorized [id number] Closed Specialty Services Required 03/20/2024 03/20/2025 1 1 Encounter Details Date Type Department Care Team (Late st Contact Info) Description 03/20/2024 Orders Only [facility] CHC MED & PEDS [address] [place], [place] [phone] Jeanna Oleary MD [address] [place], [place] [phone] Atrial fibrillation with rapid ventricular response (CMS/HCC) [...] Atrial fibrillation with rapid ventricular response (CMS/HCC) (HCC)- Primary documented in this encounter Additional Health Concerns Assessment Noted Time PHQ-9 Depression Total Score: 0 11/24/19 23 10:27 AM EDT documented as of this encounter Care Teams Heel Seat Flap Stapler Relationship Specialty Start Date End Date Jeanna Oleary MD [address] [place] [address] PCP - General Internal Medicine 12/19/16 Estefanía Cervantes PharmD [address] [place] [address] Pharmacist Internal Medicine 06/03/24 01/25/25 documented as of this encounter
--- OUTSIDE RECORDS SUMMARY | 2025-03-01 10:48 | XMS_ITS | Clinical Summary ---
Author Organization [facility] Address [address] [facility] [address] [place] [address] Phone Care Team Providers Care Trolley Collector Name Role Phone Jeanna Oleary MD Primary Care Provider [phone] Allergies Active Allergy Reactions Criticality Noted Date [...] Most Recently Relevant to Health Maintenance Insurance [facility] Medicare [facility] Medicare Care Teams Trolley Collector Relationship Specialty Start Date End Date Jeanna Oleary MD PCP - General 05/17/20
--- OUTSIDE RECORDS SUMMARY | 2025-03-01 10:48 | XMS_ITS | Encounter Summary ---
Author Organization [employer] Address 75 [facility] 7t [place] [address] Care Team Providers Care Sales Operations Name Role Phone Jeanna Oleary MD Primary Care Provider [phone] Estefanía Cervantes PharmD Unavailable [phone] Encounter Details Date Type Department Care Team (Late st Contact Info) Description 09/20/2023 Orders Only [facility] CHC MED & PEDS [address] [place], [place] [phone] Jeanna Oleary MD [address] [place], [place] [phone] Type 2 diabetes mellitus with hyperglycemia, with long-term current use of insulin ([facility]) (Primary Dx) Social History Tobacco [...] as of this encounter Care Teams Sales Operations Relationship Specialty Start Date End Date Jeanna Oleary MD [address] [place] [address] PCP - General Internal Medicine 12/19/16 Estefanía Cervantes PharmD [address] [place] [address] Pharmacist Internal Medicine 06/03/24 01/25/25 documented as of this encounter
--- OUTSIDE RECORDS SUMMARY | 2025-03-01 10:48 | XMS_ITS | Encounter Summary ---
Author Organization [employer] Address 75 [facility] 7t [place] [address] Care Team Providers Care Menu Planner Name Role Phone Jeanna Oleary MD Primary Care Provider [phone] Estefanía Cervantes PharmD Unavailable [phone] Reason for Visit * Reason Onset Date Comments Referral 11/13/2023 Encounter Details Date Type Department Care Team (Late st Contact Info) Description 11/13/2023 Telephone [facility] [address] [place] [address] Jeanna Oleary MD [address] [place] [address] Referral Social History Tobacco Use Types Packs/Day [...] 11/14/2023 10:06 AM EDT Referral faxed to [facility] as requested. * Telephone Encounter - Gene Kumari - 11/13/2023 2:59 PM EDT Tc from pt requesting for Pod[facility] [place] [facility] to location being easier. documented in this encounter Plan of Treatment Not on file documented as of this encounter Visit Diagnoses Not on filedocumented in this encounter Additional Health Concerns Assessment Noted Time PHQ-9 Depression Total Score: 0 11/24/19 23 10:27 AM EDT documented as of this encounter Care Teams Menu Planner Relationship Specialty Start Date End Date Jeanna Oleary MD [address] [place] [address] PCP - General Internal Medicine 12/19/16 Estefanía Cervantes PharmD [address] [place] [address] Pharmacist Internal Medicine 06/03/24 01/25/25 documented as of this encounter
[2025-03-01 11:05] LABS: MANUAL DIFF FLAG NO
[2025-03-01 11:08] LABS: Hematocrit 38.5 % (42.0-52.0); Hemoglobin 12.3 g/dl (14.0-18.0); Imm Gran Abs Auto 0.02 X10*3/uL (0.00-0.03); Imm Gran Pct Auto 0.4 % (0.0-0.4); Lymphocytes Absolute Auto 1.4 X10*3/uL (1.2-4.9); Mean Corpuscular HGB Conc 31.9 g/dl (31.0-36.0); Mean Corpuscular Hemoglobin 26.7 pg (27.0-33.0); Mean Corpuscular Volume 83.7 fL (80.0-98.0); NRBC Abs Auto 0.000 X10*3/uL (0.0-0.012); NRBC Pct Auto 0.0 /100WBC (0.0-0.2); Platelet Count 150 X10*3/uL (160-400); Red Blood Count 4.60 X10*6/uL (4.60-5.80); White Blood Count 4.6 X10*3/uL (4.8-10.8)
[2025-03-01 11:28] LABS: Alanine Aminotransferase 26 U/L (0-40); Albumin Level 3.7 g/dL (3.5-5.0); Alkaline Phosphatase 62 U/L (39-117); Anion Gap 11 (12-20); Aspartate Amino Transferase 23 U/L (5-37); Blood Urea Nitrogen 14 mg/dL (9-16); Calcium 8.9 mg/dL (8.4-10.2); Carbon Dioxide 24 mmol/L (22-29); Chloride 106 mmol/L (96-108); Creatinine Clr Calc Pharmacy 71.5; Estimated Glomerular Filt Rate > 60; Potassium 4.3 mmol/L (3.3-5.1); Sodium 137 mmol/L (135-145); Total Protein 6.3 g/dL (6.5-8.0)
[2025-03-01 12:10] VITALS: BP 120/62; PULSE 97; RESP 18; TEMP 36.3; O2SAT 97
== END 2025-03-01 12:10 | disposition home or self-care (01) ==
PROVIDERS: Physician Assistant Medical; Emergency Provider Emergency Medicine Emergency Medical Services; PCP Internal Medicine
DX: S71.011A Laceration without foreign body, right hip, initial encounter (principal); I48.91 Unspecified atrial fibrillation; D69.6 Thrombocytopenia, unspecified; E11.9 Type 2 diabetes mellitus without complications; X58.XXXA Exposure to other specified factors, initial encounter; Y93.9 Activity, unspecified; Y92.9 Unspecified place or not applicable; Y99.8 Other external cause status; Z79.01 Long term (current) use of anticoagulants; Z87.891 Personal history of nicotine dependence
CPT/HCPCS: 12001; 36415; 80053; 85025; 99284

== ENCOUNTER 2025-03-02 13:41 | Outpatient (AMB) | payer MEDICARE, SELFPAY ==
--- OUTSIDE RECORDS SUMMARY | 2024-02-15 06:30 | XMS_ITS ---
Author Organization [facility] Address [address] [place] [address] Care Team Providers Care Beer Still Runner Compounder Name Role Phone Richard Oleary MD Primary Care Provider Jas Sommer Unavailable [phone] Encounters Encounter Location Date Provider Diagnosis [address] [address] 02/15/2024 Jas Love Plan Of Treatment No Information Progress Notes * Jaime HAMLIN LupisDOB:[birth year] (69 yo M)Acc No.[id number]:02/15/2024 Progress Notes Patient: Jaime SPARKS Provider: Blanca Love DPM :1955 A ge:68 Y S ex:Male Date:02/15/2024 Address:[address] [place] [address] Pcp:Richard Oleary MD Subjective: * Chief Complaints: [...] DPM Date: Generated for Printi essence/Darek/eTransmitting on: 08:39 AM EDT
--- OUTSIDE RECORDS SUMMARY | 2025-02-20 05:00 | XMS_ITS ---
Author Organization [facility] Address [address] [place] [address] Care Team Providers Care Motor Overhauler Name Role Phone Richard Oleary MD Primary Care Provider Jas Sommer Unavailable [phone] Encounters Encounter Location Date Provider Diagnosis [address] [address] 02/20/2025 Jas Love Plan Of Treatment No Information Progress Notes * Jaime HAMLINDOB:[birth year] (69 yo M)Acc No.[id number]:02/20/2025 Progress Note Patient: Jaime SPARKS Provider: Blanca Love DPM :1955 A ge:69 Y S ex:Male Date:02/20/2025 Address:[address] [place] [address] Pcp:Richard Oleary MD Subjective: * Chief Complaints: [...]
--- NOTE | 2025-03-02 13:43 | A.OFFVIS_ITS ---
Vital Signs 03/02/25 13:47 Height 5 ft 10 in Weight 174 lb 2.643 oz BMI 25.0 BP 100/55 L Blood Pressure Location Lt brachial Position Sitting Pulse 81 Intake Visit Reasons: Liver Cirrhosis on last Elastography Intake Note: Jaime presents in the office as a follow up for liver cirrhosis. CC: States that he is feeling okay and not having any concerns at this time. Medical Diagnostic Radiographer Required: No Allergies oxycodone (OXYCODONE) Adverse Reaction (Intermediate, Verified 03/02/25 13:48) HALLUCINATIONS, DIZZINESS simvastatin Adverse Reaction (Intermediate, Verified 03/02/25 13:48) myalgias elevated CPK HPI HPI Liver Cirrhosis on last Elastography: Details: 69-year-old gentleman with hx of morbid obesity, severe COPD on nocturnal oxygen, obstructive sleep apnea, hypertension, paroxysmal atrial fibrillation status post ablation, (on NOAC), and diabetes mellitus who I am cseeing for follow up after initially seeing for assessment for acute blood loss anemia 11/2019 RECAP from prior notes: The patient was admitted on 11/28/2019 from home via EMS after complaining of weakness and difficulty breathing. Noted to be in acute renal failure and severe hyperkalemia with potassium of 9 as well as acute hypoxemic and hypercapnic respiratory failure requiring temporary dialysis and intubation. He improved and was extubated, and restarted on xarelto but whils ton floor he became hypotensive and had admitted to melenic stools. He again reuqired intuabtion, 4 units of PRBC (Hgb at 7 g/dl--had been 11.4 on admission) and pressor support. I did EGD x 2 which revealed large duodenal ulcer and gastric polyps --->2 large inflammed polyps noted in mid stomach approx 12-18 mm in length He was supposed to come back for rept EGD for removal of polyps No testing done for H pylori, no bx taken repeat EGD as below with polyps 07/2020--low grade dysplasia he had recent imaging US with cirrhotic appearing liver, and pancytopenia INTERIM: he feels well appetite is good no abdominal pain no nausea or vomiting no melena or rectal bleeding he lost 150# thanks to bernadine he had colonsocopy last year at [facility] and was normal EXAM: GENERAL: The patient is well developed and nontoxic. obese VITAL SIGNS:see workflow HEENT: Nonicteric sclerae, PERRLA, EOMI. Oropharynx clear. Moist mucous membranes. Conjunctivae appear well perfused. No thyroid mass. CHEST: Chest wall is nontender. HEART: Regular rate and rhythm without murmurs. LUNGS: Clear to auscultation bilaterally. ABDOMEN: Soft, positive bowel sounds, nontender, no organomegaly.no flank tenderness SKIN: No rash, no excessive bruising, petechiae, or purpura. NEUROLOGIC: Cranial nerves II-XII intact without motor/sensory deficit. 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 PLAN: 1/ Cont to [facility] labs 2/Us for HCC screening, 3/ HE; no evidence 4/ ascites- none 5/ ?PCP will be doing Hep A, B --pt will check 6/ varices, EGD also due to LGD polyp stomach PFSH Medical History PAF (paroxysmal atrial fibrillation) Hyperplastic polyps of stomach Anemia Atrial fibrillation Hypertension Hyperlipidemia Type 2 diabetes mellitus Respiratory failure with hypoxia and hypercapnia COPD (chronic obstructive pulmonary disease) Nocturnal hypoxemia TAE (obstructive sleep apnea) Obesity (BMI 30-39.9) Personal history of nicotine dependence Cervical disc herniation Erectile dysfunction Gynecomastia Hypogonadism in male Sialolithiasis of submandibular gland COVID-19 vaccine series completed Surgical History History of cardiac ablation for atrial fibrillation History of umbilical hernia repair History of vasectomy History of colonoscopy History of appendectomy History of uvulopalatopharyngoplasty History of repair of right rotator cuff History of right knee surgery History of cardioversion History of cervical discectomy History of esophagogastroduodenoscopy (EGD) H/O prior ablation treatment (04/09/20) History of penile implant History of cholecystectomy Family History Father No problems noted. Mother No problems noted. Social History Household Members: Spouse Housing: House Are you a primary behavioral health care manager to a significant other at home: No Do you presently have visiting nurse or other home services: No Alcohol intake: current Alcohol intake frequency: a few times a month Alcohol type: beer Patient Tobacco Use Status: Former Tobacco user Tobacco use type: Cigarette Cigarette Packs Per Day: 2.5 Cigarettes Per Day: 50.0 Years Smoked: 40 Physical Exam Vital Signs: Last Vital Signs Pulse 81 03/02/25 13:47 BP 100/55 L 03/02/25 13:47 BMI result Body Mass Index 25.0 Assessment & Plan Assessment & Plan (1) Cirrhosis: Code(s): K74.60 - Unspecified cirrhosis of liver Category: Medical Plan: as above Orders: Orders US abdomen stevenson w elastography Today K74.60 - Unspecified cirrhosis of liver, K75.81 - Nonalcoholic steatohepatitis (HANNA) Coding Level of Care Code New Pt Level 4 (98918) Diagnoses Cirrhosis K74.60
[2025-03-02 13:47] VITALS: BP 100/55; PULSE 81; BMI 25.0
--- OUTSIDE RECORDS SUMMARY | 2025-03-02 17:21 | XMS_ITS | Encounter Summary ---
Author Organization [employer] Address 75 [facility] 7t [place] [address] Care Team Providers Care Tree Faller Name Role Phone Jeanna Oleary MD Primary Care Provider [phone] Estefanía Cervantes PharmD Unavailable [phone] Encounter Details Date Type Department Care Team (Late st Contact Info) Description 09/20/2023 Orders Only [facility] CHC MED & PEDS [address] [place], [place] [phone] Jeanna Oleary MD [address] [place], [place] [phone] Type 2 diabetes mellitus with hyperglycemia, with long-term current use of insulin ([facility]) (Primary Dx) Social History Tobacco [...] Care Team (Late st Contact Info) Description 03/09/2025 11:15 AM EST Office Visit [facility] MED & PEDS [address] [place] [address] Jeanna Oleary MD [address] [place] [address] documented as of this encounter Visit Diagnoses Diagnosis Type 2 diabetes mellitus with hyperglycemia, with long-term current use of insulin (HCC)- Primary documented in this encounter Additional Health Concerns Assessment Noted Time PHQ-9 Depression Total Score: 0 11/24/19 23 10:27 AM EDT documented as of this encounter Care Teams Tree Faller Relationship Specialty Start Date End Date Jeanna Oleary MD [address] [place] [address] PCP - General Internal Medicine 12/19/16 Estefanía Cervantes PharmD [address] [place] [address] Pharmacist Internal Medicine 06/03/24 01/25/25 documented as of this encounter
--- OUTSIDE RECORDS SUMMARY | 2025-03-02 17:21 | XMS_ITS | Encounter Summary ---
Author Organization [employer] Address 75 [facility] 7t [place] [address] Care Team Providers Care Labor Training Manager Name Role Phone Jeanna Oleary MD Primary Care Provider [phone] Estefanía Cervantes PharmD Unavailable [phone] Encounter Details Date Type Department Care Team (Late st Contact Info) Description 01/29/2024 Orders Only [facility] CHC MED & PEDS [address] [place], [place] [phone] Jeanna Oleary MD [address] [place] [address] Class 3 severe obesity due to excess calories without serious comorbidity with body mass index (BMI) of 40.0 to 44.9 in adult (CMS/HCC) (Primary Dx); Type 2 diabetes mellitus with hyperglycemia, with long-term current use of insulin ([facility]) Social History Tobacco Use Types Packs/Day Years Used Date Smoking Tobacco: Former Cigarettes Smokeless Tobacco: Never Alcohol Use Standard Drinks/Week Comments Yes 3 (1 standard drink = 0.6 oz pur e alcohol) Depression Answer Date Recorded Patient Health Questionnaire-9 Score 0 11/23/2022 Housing Stability Answer Date Recorded What is your housing situation today? I have danielle martinse 02/21/[address] you li [...] Description 03/09/2025 11:15 AM EST Office Visit [facility] CHC MED & PEDS [address] [place] [address] Jeanna Oleary MD [address] [place] [address] documented as of this encounter Visit Diagnoses [...] documented as of this encounter Care Teams Labor Training Manager Relationship Specialty Start Date End Date Jeanna Oleary MD [address] [place], [place] [phone] PCP - General Internal Medicine 12/19/16 Estefanía Cervantes PharmD [address] [place] [address] Pharmacist Internal Medicine 06/03/24 01/25/25 documented as of this encounter
--- OUTSIDE RECORDS SUMMARY | 2025-03-02 17:21 | XMS_ITS | Encounter Summary ---
Author Organization [employer] Address 75 [facility] 7 [place] [address] Care Team Providers Care Personal Lines Insurance Advisor Name Role Phone Jeanna Oleary MD Primary Care Provider [phone] Reason for Visit * Reason Onset Date Comments ER Follow-up 03/02/2025 [place] Encounter Details Date Type Department Care Team ([facility] st Contact Info) Description 03/02/2025 Telephone [facility] CHC MED & PEDS [address] [place], [place] [phone] Jeanna Oleary MD [address] [place] [address] ER Follow-up ([place] ) Social History Tobacco Use Types Packs/Day Years [...] encounter Miscellaneous Notes * Telephone Encounter - Brittany Martinez RN - 03/02/2025 10:01 AM EDT Called pt regarding suture removal, spoke to pt. Pt had testerone pellets placed on and needs removal 7-10 days. Given appointment with PCP 03/10 for recheck and suture removal. Pt understands and agrees with plan. Sutures intact with some bleeding which has stopped. * Telephone Encounter - Diogenes Mckeon - 03/02/2025 8:40 AM EDT TC from pt requesting Suture removal Hospital or clinic where sutures were placed: [facility] Date sutures were placed: 03/01/2025 Number of sutures (if known): 2 Location of sutures: right hip Number of days advised before removal: 7-10 days. Contact pt at [phone] documented in this encounter Plan of Treatment Upcoming Encounters Date Type Department Care Team ([facility] st Contact Info) Description 03/09/2025 11:15 AM EST Office Visit [facility] MED & PEDS [address] [place] [address] Jeanna Oleary MD [address] [place] [address] documented as of this encounter Visit Diagnoses Not on filedocumented in this encounter Additional Health Concerns Assessment Noted Time PHQ-9 Depression Total Score: 3 06/16/19 25 10:59 AM EST documented as of this encounter Care Teams Personal Lines Insurance Advisor Relationship Specialty Start Date End Date Jeanna Oleary MD [address] [place] [address] PCP - General Internal Medicine 12/19/16 documented as of this encounter
--- OUTSIDE RECORDS SUMMARY | 2025-03-02 17:21 | XMS_ITS | Encounter Summary ---
Author Organization [employer] Address 75 [facility] 7t [place] [address] Care Team Providers Care Optical Manufacturing Technician Name Role Phone Jeanna Oleary MD Primary Care Provider [phone] Estefanía Cervantes PharmD Unavailable [phone] Encounter Details Date Type Department Care Team (Late st Contact Info) Description 01/01/2024 Orders Only [facility] CH[facility] MED & PEDS [address] [place], [place] [phone] Jeanna Oleary MD 505 [place], [place] [phone] Type 2 diabetes mellitus with hyperglycemia, with long-term current use of insulin ([facility]) (Primary Dx) Social History Tobacco Use [...] Description 03/09/2025 11:15 AM EST Office Visit [facility] MED & PEDS [address] [place] [address] Jeanna Oleary MD 505 [place] [address] documented as of this encounter Visit Diagnoses Diagnosis Type 2 diabetes mellitus with hyperglycemia, with long-term current use of insulin (HCC)- Primary documented in this encounter Additional Health Concerns Assessment Noted Time PHQ-9 Depression Total Score: 0 11/24/19 23 10:27 AM EDT documented as of this encounter Care Teams Optical Manufacturing Technician Relationship Specialty Start Date End Date Jeanna Oleary MD 505 [place] [address] PCP - General Internal Medicine 12/19/16 Estefanía Cervantes PharmD [address] [place] [address] Pharmacist Internal Medicine 06/03/24 01/25/25 documented as of this encounter
--- OUTSIDE RECORDS SUMMARY | 2025-03-02 17:21 | XMS_ITS | Encounter Summary ---
Author Organization [employer] Address 75 [facility] 7 [place] [address] Care Team Providers Care Aviation Technician Aircraft Name Role Phone Jeanna Oleary MD Primary Care Provider [phone] Estefanía Cervantes PharmD Unavailable [phone] Reason for Referral * Consultation (Routine) - Closed Specialty Diagnoses / Procedures Referred By Contac t Referred To Contact Cardiology Diagnoses Atrial fibrillation with rapid ventricular response (CMS/HCC) (HCC) Jeanna Oleary MD [address] [place] [address] Phone: tel: fax: Erasmo Daily MD [address] [place] [address] Phone: tel: fax: Referral ID Status Reason Start Date Expiration Date V isits Requested Visits Authorized [id number] Closed Specialty Services Required 03/20/2024 03/20/2025 1 1 Encounter Details Date Type Department Care Team (Late st Contact Info) Description 03/20/2024 Orders Only [facility] CHC MED & PEDS [address] [place], [place] [phone] Jeanna Oleary MD 505 [place], [place] [phone] Atrial fibrillation with rapid ventricular response (CMS/HCC) [...] Description 03/09/2025 11:15 AM EST Office Visit [facility] CH[facility] MED & PEDS [address] [place] [address] Jeanna Oleary MD 505 [place] [address] Scheduled Referrals Name Type Priority Associated Diagnoses [...] documented as of this encounter Care Teams Aviation Technician Aircraft Relationship Specialty Start Date End Date Jeanna Oleary MD 505 [place] [address] PCP - General Internal Medicine 12/19/16 Estefanía Cervantes PharmD [address] [place] [address] Pharmacist Internal Medicine 06/03/24 01/25/25 documented as of this encounter
--- OUTSIDE RECORDS SUMMARY | 2025-03-02 17:21 | XMS_ITS | Encounter Summary ---
Author Organization [employer] Address 75 [facility] 7t [place] [address] Care Team Providers Care Licensed Embalmer Name Role Phone Jeanna Oleary MD Primary Care Provider [phone] Estefanía Cervantes PharmD Unavailable [phone] Encounter Details Date Type Department Care Team (Late st Contact Info) Description 09/05/[address] [facility] CHC MED & PEDS 505 [place], [place] [phone] Jeanna Oleary MD 505 [place] [address] Hyperkalemia (Primary Dx); Type 2 diabetes mellitus with hyperglycemia, with long-term current use of insulin ([facility]/HCC); Erectile disorder Social History Tobacco Use Types [...] Upcoming Encounters Date Type Department Care Team ([facility] st Contact Info) Description 03/09/2025 11:15 AM EST Office Visit [facility] MED & PEDS 505 [place] [address] Jeanna Oleary MD 505 [place] [address] Scheduled Orders Name Type Priority Associated Diagnoses [...] Testosterone, Total 98(A) 250 - 1100 ng/dL [facility] Comment:Men with clinically significant hypogonadalsymptoms and testosterone values repeatedly inthe range of the 200-300 ng/dL or less, maybenefit from testosterone treatment afteradequate risk and benefits counseling.For additional information, please refer tohttp://education.Vidavee.NetWitness/faq/XjlcpGgsgwyrccbffVSDXNREGB190(This link is being provided for informational/educational purposes only.)This test was developed and its analytical performancecharacteristics have been determined by [employer], [place]. It hasnot been cleared or approved by the U.S. Food and DrugAdministration. This assay has been validated pursuantto the CLIA regulations and is used for clinicalpurposes. Testosterone, Free 14.7(A) 35.0 - 155.0 pg/mL [facility] Comment:This test was develo ped and its analytical performancecharacteristics have been determined by [employer] [place], [place]. It hasnot been cleared or approved by the U.S. Food and DrugAdministration. This assay has been validated pursuantto the CLIA regulations and is used for clinicalpurposes.THIS TEST WAS PERFORMED AT:[employer] [place] [address]BRYEDIMLEONORA MCNEIL MD,PHD Blood Venous blood specimen / Unknown 10/03/2023 12:52 PM EDT 10/03/2023 4:32 PM EDT Jeanna Oleary MD LAB BLOOD ORDERABLES Final Result [facility] [address] [place] [address] [phone] documented in this encounter Visit Diagnoses Diagnosis Hyperkalemia- Primary Hyperpotassemia Type 2 diabetes mellitus with hyperglycemia, with long-term current use of insulin (HCC) Erectile disorder documented in this encounter Additional Health Concerns Assessment Noted Time PHQ-9 Depression Total Score: 0 11/24/19 23 10:27 AM EDT documented as of this encounter Care Teams Licensed Embalmer Relationship Specialty Start Date End Date Jeanna Oleary MD [address] [place] [address] PCP - General Internal Medicine 12/19/16 Estefanía Cervantes PharmD [address] [place] [address] Pharmacist Internal Medicine 06/03/24 01/25/25 documented as of this encounter
--- OUTSIDE RECORDS SUMMARY | 2025-03-02 17:21 | XMS_ITS | Encounter Summary ---
Author Organization [employer] Address 75 [facility] [address] [address] Care Team Providers Care Benefit Specialist Name Role Phone Jeanna Oleary MD Primary Care Provider [phone] Estefanía Cervantes PharmD Unavailable [phone] Reason for Visit * Reason Comments Med Refill Encounter Details Date Type Department Care Team (Late Contact Info) Description 07/04/2022 Refill [facility] MED[facility]INE [address] [place], [place] [phone] Jeanna Oleary MD 505 [place] [address] Mixed simple and mucopurulent chronic bronchitis (CMS/HCC) [...] Department Care Team (Late Contact Info) Description 03/09/2025 11:15 AM EST Office Visit [facility] CHC MED & PEDS 505 [place], [place] [phone] Jeanna Oleary MD 505 [place], [place] [phone] documented as of this encounter Visit Diagnoses Diagnosis Mixed simple and mucopurulent chronic bronchitis (CMS/HCC) (HCC)- Primary Other chronic bronchitis Type 2 diabetes mellitus with hyperglycemia, with long-term current use of insulin (HCC) documented in this encounter Care Teams Benefit Specialist Relationship Specialty Start Date End Date Jeanna Oleary MD 505 [place] [address] PCP - General Internal Medicine 12/19/16 Estefanía Cervantes PharmD [address] [place] [address] Pharmacist Internal Medicine 06/03/24 01/25/25 documented as of this encounter
--- OUTSIDE RECORDS SUMMARY | 2025-03-02 17:21 | XMS_ITS | Encounter Summary ---
Author Organization [employer] Address 75 [facility] 7t [place] [address] Care Team Providers Care Readers' Advisory Service Librarian Name Role Phone Jeanna Oleary MD Primary Care Provider [phone] Estefanía Cervantes PharmD Unavailable [phone] Encounter Details Date Type Department Care Team (Late st Contact Info) Description 06/16/2024 Orders Only [facility] CHC MED & PEDS [address] [place], [place] [phone] Jeanna Oleary MD 505 [place] [address] Social History Tobacco Use Types Packs/Day Years [...] Description 03/09/2025 11:15 AM EST Office Visit [facility] CHC MED & PEDS 505 [place] [address] Jeanna Oleary MD 505 [place] [address] documented as of this encounter Visit Diagnoses Not on filedocumented in this encounter Additional Health Concerns Assessment Noted Time PHQ-9 Depression Total Score: 3 06/16/19 10:59 AM EST documented as of this encounter Care Teams Readers' Advisory Service Librarian Relationship Specialty Start Date End Date Jeanna Oleary MD 505 [place] [address] PCP - General Internal Medicine 12/19/16 Estefanía Cervantes PharmD [address] [place] [address] Pharmacist Internal Medicine 06/03/24 01/25/25 documented as of this encounter
--- OUTSIDE RECORDS SUMMARY | 2025-03-02 17:21 | XMS_ITS | Encounter Summary ---
Author Organization [employer] Address 75 [facility] 7t [place] [address] Care Team Providers Care Video Clerk Name Role Phone Jeanna Oleary MD Primary Care Provider [phone] Estefanía Cervantes PharmD Unavailable [phone] Encounter Details Date Type Department Care Team (Late st Contact Info) Description 12/04/2023 Orders Only [facility] CHC MED & PEDS [address] [place], [place] [phone] Jeanna Oleary MD 505 [place] [address] Class 3 severe obesity due to excess calories without serious comorbidity with body mass index (BMI) of 40.0 to 44.9 in adult (CMS/HCC) (Primary Dx); Type 2 diabetes mellitus with hyperglycemia, with long-term current use of insulin ([facility]) Social History Tobacco Use Types [...] Description 03/09/2025 11:15 AM EST Office Visit [facility] CH[facility] MED & PEDS [address] [place] [address] Jeanna Oleary MD [address] [place] [address] documented as of this encounter Visit Diagnoses [...] documented as of this encounter Care Teams Video Clerk Relationship Specialty Start Date End Date Jeanna Oleary MD [address] [place], [place] [phone] PCP - General Internal Medicine 12/19/16 Estefanía Cervantes PharmD 230 [place] [address] Pharmacist Internal Medicine 06/03/24 01/25/25 documented as of this encounter
--- OUTSIDE RECORDS SUMMARY | 2025-03-02 17:21 | XMS_ITS | Clinical Summary ---
Author Organization [facility] Address [address] [place] [address] Phone Care Team Providers Care Mineral Industry Teacher Name Role Phone Jeanna Oleary MD Primary Care Provider [phone] Allergies Active Allergy Reactions Criticality Noted Date [...] Most Recently Relevant to Health Maintenance Insurance [facility] Medicare [facility] Medicare Care Teams Mineral Industry Teacher Relationship Specialty Start Date End Date Jeanna Oleary MD PCP - General 05/17/20
--- OUTSIDE RECORDS SUMMARY | 2025-03-02 17:21 | XMS_ITS | Encounter Summary ---
Author Organization [employer] Address 75 [facility] 7t [place] [address] Care Team Providers Care Contract Admin Name Role Phone Jeanna Oleary MD Primary Care Provider [phone] Estefanía Cervantes PharmD Unavailable [phone] Reason for Visit * Reason Onset Date Comments Med Refill 12/02/2024 Encounter Details Date Type Department Care Team ([facility] st Contact Info) Description 12/02/2024 Telephone [facility] CHC MED & PEDS 505 [place], [place] [phone] Jeanna Oleary MD [address] [place], [place] [phone] Med Refill Social History Tobacco Use Types [...] 9:57 AM EDT Medication was sent to [facility] on 09/04/24 with 3 refills. * Telephone Encounter - Diogenes Mckeon - 12/02/2024 9:45 AM EDT TC from pt requesting medication refill. Medications needing refill : Mounjaro 15 MG/0.5ML solution auto-injector To be sent to: [facility] - [place], [place] - [address] [facility] documented in this encounter Plan of Treatment Upcoming Encounters Date Type Department Care Team (Late st Contact Info) Description 03/09/2025 11:15 AM EST Office Visit [facility] MED & PEDS [address] [place] [address] Jeanna Oleary MD [address] [place] [place] [address] documented as of this encounter Visit Diagnoses Not on filedocumented in this encounter Additional Health Concerns Assessment Noted Time PHQ-9 Depression Total Score: 3 06/16/19 25 10:59 AM EST documented as of this encounter Care Teams Contract Admin Relationship Specialty Start Date End Date Jeanna Oleary MD [address] [place] [address] PCP - General Internal Medicine 12/19/16 Estefanía Cervantes PharmD [address] [place] [address] Pharmacist Internal Medicine 06/03/24 01/25/25 documented as of this encounter
--- OUTSIDE RECORDS SUMMARY | 2025-03-02 17:21 | XMS_ITS | Encounter Summary ---
Author Organization [employer] Address 75 [facility] 7t [place] [address] Care Team Providers Care Chief Dispatcher Service Name Role Phone Jeanna Oleary MD Primary Care Provider [phone] Estefanía Cervantes PharmD Unavailable [phone] Encounter Details Date Type Department Care Team (Late st Contact Info) Description 11/07/2023 Orders Only [facility] CHC MED & PEDS [address] [place], [place] [phone] Jeanna Oleary MD 505 [place], [place] [phone] Type 2 diabetes mellitus with hyperglycemia, with long-term current use of insulin ([facility]) (Primary Dx) Social [...] Description 03/09/2025 11:15 AM EST Office Visit [facility] MED & PEDS [address] [place] [address] Jeanna Oleary MD [address] [place] [address] documented as of this encounter Visit Diagnoses Diagnosis Type 2 diabetes mellitus with hyperglycemia, with long-term current use of insulin (HCC)- Primary documented in this encounter Additional Health Concerns Assessment Noted Time PHQ-9 Depression Total Score: 0 11/24/19 23 10:27 AM EDT documented as of this encounter Care Teams Chief Dispatcher Service Relationship Specialty Start Date End Date Jeanna Oleary MD [address] [place] [address] PCP - General Internal Medicine 12/19/16 Estefanía Cervantes PharmD [address] [place] [address] Pharmacist Internal Medicine 06/03/24 01/25/25 documented as of this encounter
--- OUTSIDE RECORDS SUMMARY | 2025-03-02 17:21 | XMS_ITS | Patient Health Record ---
Author Organization [facility] [place] Address [address] [place] [address] Care Team Providers Care Reconstructive Dentist Name Role Phone Richard Oleary MD Primary Care Provider Jas Sommer Unavailable [phone] Allergies No Known Allergies Reason For Referral [...] Problem Acquired hammer toe of right foot (1639272253394 105) Other hammer toe(s) (acquired), right foot (M20.41) Active confirmed Problem Acquired hammer toe of left foot (5385088966274 103) Other hammer toe(s) (acquired), left foot (M20.42) Active confirmed Problem Type 2 diabetes mellitus with peripheral angiopathy (641266714) Type 2 diabetes mellitus with diabetic peripheral angiopathy without gangrene (E11.51) Active confirmed Q7(A), Q8(2B), Q9(1B,2C) Encounters Encounter Location Date Provider Diagnosis [facility] [place] [address] [place] [phone] 02/18/2025 Jas Love Plan Of Treatment Pending Test Test Name Order Date X ray : Foot, left 3V 02/22/2024 Insurance Providers Payer Name Payer Address Payer Phone Subscriber Number Group Number Insured Name Patient Relationship to Insured Coverage Start Date Coverage End Date Medicare National Gov[employer] [address] [facility] [place] [address] [id number] Jaime Hamlin Self - patient is the insured 7 [employer] Blue Shield [address] [place] [address] [id number] Jaime Hamlin Self - patient is the insured Medical (General) History Medical History History ICD Code covid-19 Diabetic Heart disease High blood pressure Kidney disease Reflux ( GERD) Stomach ulcer Surgical History Surgery Date(Month/Year) Gall bladder removal
--- OUTSIDE RECORDS SUMMARY | 2025-03-02 17:21 | XMS_ITS | Encounter Summary ---
Author Organization [employer] Address 75 [facility] 7 [place] [address] Care Team Providers Care Research Dairy Farm Supervisor Name Role Phone Jeanna Oleary MD Primary Care Provider [phone] Estefanía Cervantes PharmD Unavailable [phone] Reason for Referral * Consultation (Routine) - Closed Specialty Diagnoses / Procedures Referred By Contac t Referred To Contact Endocrinology Diagnoses Hypogonadism male Jeanna Oleary MD [address] [place] [address] Phone: tel: fax: [facility] Endocrinology [address] [place] [address] Phone: tel: fax: Referral ID Status Reason Start Date Expiration Date V isits Requested Visits Authorized [id number] Closed Specialty Services Required 10/11/2023 10/10/2024 1 1 Encounter Details Date Type Department Care Team (Late st Contact Info) Description 10/11/2023 Orders Only [facility] CHC MED & PEDS [address] [place] [address] Jeanna Oleary MD [address] [place] [address] Hypogonadism male (Primary Dx) Social History Tobacco [...] Upcoming Encounters Date Type Department Care Team ([facility] Contact Info) Description 03/09/2025 11:15 AM EST Office Visit [facility] MED & PEDS [address] [place] [address] Jeanna Oleary MD [address] [place] [address] Scheduled Referrals Name Type Priority Associated Diagnoses [...] Testosterone, Total 94(A) 250 - 1100 ng/dL [facility] Comment:Men with clinically significant hypogonadalsymptoms and testosterone values repeatedly inthe range of the 200-300 ng/dL or less, maybenefit from testosterone treatment afteradequate risk and benefits counseling.For additional information, please refer tohttp://education.Productify/faq/VspbeCsckbzvwkjqnVITPCXJVD266(This link is being provided for informational/educational purposes only.)This test was developed and its analytical performancecharacteristics have been determined by [employer] [place], [place]. It hasnot been cleared or approved by the U.S. Food and DrugAdministration. This assay has been validated pursuantto the CLIA regulations and is used for clinicalpurposes.THIS TEST WAS PERFORMED AT:[employer] [place] [address]MJUKHGMLEONORA MCNEIL MD,PHD Blood Venous blood specimen / Unknown 10/16/2023 2:12 PM EDT 10/16/2023 5:54 PM EDT us Jeanna Oleary MD LAB BLOOD ORDERABLES Final Result [facility] [address] [place] [address] [phone] documented in this encounter Visit Diagnoses Diagnosis Hypogonadism male- Primary Other testicular hypofunction documented in this encounter Additional Health Concerns Assessment Noted Time PHQ-9 Depression Total Score: 0 11/24/19 23 10:27 AM EDT documented as of this encounter Care Teams Research Dairy Farm Supervisor Relationship Specialty Start Date End Date Jeanna Oleary MD [address] [place] [address] PCP - General Internal Medicine 12/19/16 Estefanía Cervantes, DayneD [address] [place] [address] Pharmacist Internal Medicine 06/03/24 01/25/25 documented as of this encounter
--- OUTSIDE RECORDS SUMMARY | 2025-03-02 17:21 | XMS_ITS | Clinical Summary ---
Author Organization [employer] Address [address] [facility] 7[address] [place] [address] Care Team Providers Care Radio Frequency Technician Name Role Phone Jeanna Oleary MD Primary Care Provider [phone] Allergies Active Allergy Reactions Criticality Noted Date [...] hyperglycemia, with long-term current use of insulin ([facility]) To wipe the skin prior to applying the sensor 2 times a month 50 each 11 09/20/19 24 Active omeprazole (PriLOSEC) 40 MG [...] hyperglycemia, with long-term current use of insulin ([facility]) 1 each Once per day. [...] (BMI) of 40.0 to 44.9 in adult ([facility]),Type 2 diabetes mellitus with hyperglycemia, with long-term current use of insulin ([facility]) inject 15 mg's SUBCUTANEOUSLY ONCE [...] Atrial fibrillation with rap id ventricular response ([facility]) 09/29/2021 Benign hypertension 09/29/2021 Gastroesophageal reflux disease 06/20/2021 Obstructive sleep apnea syndrome 06/20/2021 Injury of kidney 06/20/2021 Hyperlipidemia 06/20/2021 Osteoarthritis 06/20/2021 Pulmonary hypertension ([facility]) 06/20/2021 Stage 3a chronic kidney disease ([facility]) 2020 Gastric polyposis 12/02/2019 Obesity 04/18/2017 Chronic obstructive lung disease 12/19/2016 Diabetic neuropathy 12/19/2016 Type 2 diabetes mellitus 12/19/2016 Encounters Date Type Department Care Team Description 03/02/2025 Telephone [facility] [address] [place] [address] Jeanna Oleary MD ER Follow-up (Stitches ) 03/01/2025 Orders Only GENERIC EXTERNAL DATA DEPARTMENT Provider, Generic External Data 02/12/2025 Results Follow-Up [facility] [address] [place] [address] Jeanna Oleary MD CBC 02/12/2025 Orders Only GENERIC EXTERNAL DATA DEPARTMENT Provider, Generic External Data 01/26/2025 9:00 AM EDT Telemedicine [facility] [address] [place] [address] Estefanía Cervantes PharmD Type 2 diabetes mellitus without complication, without long-term current use of insulin (CMS/HCC) (Primary Dx); Benign hypertension 01/26/2025 Travel 12/29/2024 11:30 AM EDT Office Visit [facility] [address] [place] [address] Jeanna Oleary MD Type 2 diabetes mellitus with hyperglycemia, with long-term current use of insulin (CMS/HCC) (Primary Dx); Benign hypertension; Atrial fibrillation with rapid ventricular response (CMS/HCC); Tail bone pain; Encounter for immunization 12/29/2024 Travel 12/26/2024 Refill [facility] [address] [place] [address] Jeanna Oleary MD Vitamin D deficiency 12/25/2024 Refill [facility] [address] [place] [address] Jeanna Oleary MD Class 3 severe obesity due to excess calories without serious comorbidity with body mass index (BMI) of 40.0 to 44.9 in adult; Type 2 diabetes mellitus with hyperglycemia, with long-term current use of insulin (CMS/HCC) 12/17/2024 Telephone [facility] [address] [place] [address] Jeanna Oleary MD Med Refill 12/02/2024 Telephone [facility] [address] [place] [address] Jeanna Oleary MD Med Refill from Last [...] Description 03/09/2025 11:15 AM EST Office Visit [facility] [address] [place], [place] [phone] Jeanna Oleary MD [address] [place] [phone] Health Maintenance Due Date Last Done Comments CT Colonography 1955 FIT DNA/Cologuard 1955 FIT 1955 FOBT 1955 Sigmoidoscopy 1955 Diabetes: Foot Exam 1964 Hepatitis A Vaccines (1 of 2 - Risk 2-dose series) 1973 Eye Exam 02/08/2024 02/07/2023 Diabetes: Urine Protein Screening 06/13/2025 06/13/2024, 03/25/2024, [...] Aged 60 years or older Completed 01/19/2023 Hepatitis C Screening Completed 08/14/2024 Hepatitis B Vaccines Completed 12/29/2024, 03/04/2018, 12/31/2017, Additional history exists COVID-19 Vaccine Completed 02/05/2025, , 01/09/2024, Additional history exists Influenza Vaccine Completed 02/05/2025, , 01/19/2023, Additional history exists HIB Vaccines Aged Out [...] Procedure Name Priority Date/Time Associated Diagnosis Comments COMPREHENSIVE METABOLIC PANEL Routine 03/01/2025 11:02 AM EDT CBC WITH AUTO DIFFERENTIAL Routine 03/01/2025 11:02 AM EDT TESTOSTERONE, TOTAL, MALES (ADULT), IA Routine 02/12/2025 10:29 AM EDT CBC Routine 02/12/2025 10:29 AM EDT LIPID PANEL, STANDARD Routine 02/12/2025 10:29 AM EDT Type 2 diabetes mellitus with hyperglycemia, with long-term current use of insulin ([facility]) PSA, TOTAL Routine 02/12/2025 10:09 AM EDT POCT GLUCOSE Routine 12/29/2024 12:01 PM EDT Type 2 diabetes mellitus with hyperglycemia, with long-term current use of insulin ([facility]) POCT GLYCATED HEMOGLOBIN, TOTAL Routine 12/29/2024 11:58 AM EDT Type 2 diabetes mellitus with hyperglycemia, with long-term current use of insulin ([facility]) HEPATITIS PANEL, GENERAL Routine 08/14/2024 12:02 PM EDT Transaminitis ALBUMIN, RANDOM URINE W/CREATININE Routine 06/13/2024 10:55 AM EST COLONOSCOPY Routine 02/15/2023 DIABETES EYE EXAM Routine 02/07/2023 from Last 3 Months or Most Recently Relevant to Health Maintenance Results * (ABNORMAL) CBC auto differential (03/01/2025 11:02 AM EDT) White Blood Count 4.6(L) 4.8 - 10.8 X10*3/uL [facility] Red Blood Count 4.60 4.60 - 5.80 X10*6/uL [facility] Hemoglobin 12.3(L) 14.0 - 18.0 g/dl [facility] Hematocrit 38.5(L) 42.0 - 52.0 % [facility] Mean Corpuscular Volume 83.7 80.0 - 98.0 fL [facility] Mean Corpuscular Hemoglobin 26.7(L) 27.0 - 33.0 pg [facility] Mean Corpuscular HGB Conc 31.9 31.0 - 36.0 g/dl [facility] Red Cell Distribution Width 14.6 11.0 - 16.0 % [facility] Platelet Count 150(L) 160 - 400 X10*3/uL [facility] Mean Platelet Volume 10.4 9.4 - 12.4 fL [facility] Neutrophils Percent Auto 58.6 45 - 73 % [facility] Imm Gran Pct Auto 0.4 0.0 - 0.4 % [facility] Lymphocytes Percent Auto 29.8 20 - 40 % [facility] Monocytes Percent Auto 9.3 2 - 11 % [facility] Eosinophils Percent Auto 1.5 0 - 4 % [facility] Basophils Percent Auto 0.4 0 - 2 % [facility] NRBC Pct Auto 0.0 0.0 - 0.2 /100WBC [facility] Neutrophils Absolute Auto 2.7 2.0 - 8.3 x10*3/uL [facility] Imm Gran Abs Auto 0.02 0.00 - 0.03 X10*3/uL [facility] Lymphocytes Absolute Auto 1.4 1.2 - 4.9 X10*3/uL [facility] Monocytes Absolute Auto 0.4 0.1 - 1.2 X10*3/uL [facility] Eosinophils Absolute Auto 0.1 0.0 - 0.4 X10*3/uL [facility] Basophils Absolute Auto 0.0 0.0 - 0.2 X10*3/uL [facility] NRBC Abs Auto 0.000 0.0 - 0.012 X10*3/uL [facility] 03/01/2025 11:0 2 AM EDT 03/01/2025 11:04 AM EDT us Generic External Data Provider LAB BLOOD ORDERAB LES Final Result [facility] [address] [place] [address] [phone] * (ABNORMAL) Comprehensive Metabolic Panel (03/01/2025 11:02 AM EDT) Sodium 137 135 - 145 mmol/L [facility] Potassium 4.3 3.3 - 5.1 mmol/L [facility] Chloride 106 96 - 108 mmol/L [facility] Carbon Dioxide 24 22 - 29 mmol/L [facility] Anion Gap 11(L) 12 - 20 [facility] Urea Nitrogen (BUN) 14 9 - 16 mg/dL [facility] Creatinine, Serum 0.93 0.5 - 1.4 mg/dL [facility] Creatinine Clr Calc Pharmacy 71.5 [facility] Comment:eGFR (calculated fro m the MDRD study equation) and eCrCl(calculated from the Cockcroft-Gault equation) are based ondifferent parameters and may not yield comparable results.If eCrCl result is absurd, please check patient'sheight/weight. Estimated Glomerular Filt Rate >60 [facility] Comment:Chronic Kidney Disea se: Estimated GFR < 60 mL/min/1.54r1Jzmaxx Kidney Disease: Estimated GFR < 15 mL/min/1.73m2 Glucose 156(H) 60 - 115 mg/dL [facility] Calcium 8.9 8.4 - 10.2 mg/dL [facility] Bilirubin, Total 0.4 0.0 - 1.0 mg/dL [facility] Aspartate Amino Transferase 23 5 - 37 U/L [facility] Alanine Aminotransferase 26 0 - 40 U/L [facility] Total Protein 6.3(L) 6.5 - 8.0 g/dL [facility] Albumin Level 3.7 3.5 - 5.0 g/dL [facility] Alkaline Phosphatase 62 39 - 117 U/L [facility] 03/01/2025 11:0 2 AM EDT 03/01/2025 11:04 AM EDT us Generic External Data Provider LAB BLOOD ORDERAB LES Final Result Performing Organization Address City/State/[facility] Co de Phone Number [facility] [address] [place] [phone] * (ABNORMAL) CBC (02/12/2025 10:29 AM EDT) White Blood Count 5.1 4.8 - 10.8 X10*3/uL [facility] Red Blood Count 5.79 4.60 - 5.80 X10*6/uL [facility] Hemoglobin 15.5 14.0 - 18.0 g/dl [facility] Hematocrit 48.8 42.0 - 52.0 % [facility] Mean Corpuscular Volume 84.3 80.0 - 98.0 fL [facility] Mean Corpuscular Hemoglobin 26.8(L) 27.0 - 33.0 pg [facility] Mean Corpuscular HGB Conc 31.8 31.0 - 36.0 g/dl [facility] Red Cell Distribution Width 14.7 11.0 - 16.0 % [facility] Platelet Count 221 160 - 400 X10*3/uL [facility] Mean Platelet Volume 10.6 9.4 - 12.4 fL [facility] NRBC Pct Auto 0.0 0.0 - 0.2 /100WBC [facility] NRBC Abs Auto 0.000 0.0 - 0.012 X10*3/uL [facility] 02/12/2025 10:2 9 AM EDT 02/12/2025 1:17 PM EDT us Generic External Data Provider LAB BLOOD ORDERAB LES Final Result Performing Organization Address City/[facility]/ZIP Co de Phone Number [facility] [address] [place] [phone] * Testosterone, Total, males (Adult), IA (02/12/2025 10:29 AM EDT) [facility] Testosterone, Total 755 250 - 1100 ng/dL [facility] Comment:Men with clinically significant hypogonadalsymptoms and testosterone values repeatedly inthe range of the 200-300 ng/dL or less, maybenefit from testosterone treatment afteradequate risk and benefits counseling.For additional information, please refer [email or web address](This link is being provided for informational/educational purposes only.)This test was developed and its analytical performancecharacteristics have been determined by [employer] [place], [place]. It hasnot been cleared or approved by the U.S. Food and DrugAdministration. This assay has been validated pursuantto the CLIA regulations and is used for clinicalpurposes.THIS TEST WAS PERFORMED AT:[employer]/[email or web address] [place] [id number] MCNEIL MD,PHD 02/12/2025 10:2 9 AM EDT 02/12/2025 1:18 PM EDT us Generic External Data Provider LAB BLOOD ORDERAB LES Final Result Performing Organization Address City/[facility]/ZIP Co de Phone Number [facility] [address] [place] [address] [phone] * (ABNORMAL) Lipid Panel, Standard (02/12/2025 10:29 AM EDT) Triglycerides 102 <150 mg/dL [facility] Comment:Desirable Triglyceri de: less than 150 mg/dLBorderline High Triglyceride 150-199 mg/dLHigh Triglyceride: 200-499 mg/dLVery High Triglyceride: greater than or equal to 5OO mg/dL Cholesterol 103 <200 mg/dL [facility] Comment:Desirable Cholestero l: less than 200 mg/dLBorderline High Cholesterol: 200-239 mg/dLHigh Cholesterol: greater than 239 mg/dL LDL Cholesterol Calculated 54 <100 mg/dL [facility] Comment:Desirable LDL: less than 100 mg/dLNear Optimal/Above Optimal LDL: 110- 129 mg/dLBorderline High LDL: 130-159 mg/dLHigh LDL: 160-189 mg/dLVery High LDL: greater than or equal to 190 mg/dL HDL Cholesterol 29(L) >40 mg/dL [facility] Comment:Desirable HDL: great er than 40 mg/dL Note: This HDL assay may give artificially low results in patients with liver disease. Blood Venous blood specimen / Unknown 02/12/2025 10:29 AM EDT 02/12/2025 1:18 PM EDT Jeanna Oleary MD LAB BLOOD ORDERABLES Final Result [facility] [address] [place] [phone] * PSA,Total (02/12/2025 10:09 AM EDT) Prostate Specific Antigen 0.24 <0.05 - 4.0 ng/mL [facility] Comment:PSA methodology: Abb yady Alinity i ChemiluminescentMicroparticle Immunoassay (CMIA) 02/12/2025 10:0 9 AM EDT 02/12/2025 4:46 PM EDT us Generic External Data Provider LAB BLOOD ORDERAB LES Final Result [facility] [address] [place] [phone] [phone] * POCT Glucose (12/29/2024 12:01 PM EDT) Glucose Blood, POC 179 60 - 200 mg/dL QC Media Lot # [id number] Lot# Expiration Date ,568 Comment:random Blood Capillary blood specimen / Unknown 12/29/2024 12:01 PM EDT Jeanna Oleary MD POINT OF CARE TEST ENTER/ED IT ORDERABLES Final Result * (ABNORMAL) POCT HGB A1C (12/29/2024 11:58 AM EDT) Pathologist [facility] Hemoglobin A1C 6.1(A) 4.0 - 5.7 % QC Media Lot # [id number] Lot# Expiration Date 776 Blood 12/29/2024 11:5 8 AM EDT us Jeanna Oleary MD POINT OF CARE TEST ENTER/ED IT ORDERABLES Final Result * Hepatitis A,B,C Profile (08/14/2024 12:02 PM EDT) Pathologist [facility] Hepatitis A IgM Nonreactive Nonreactive [facility] Comment:IgM antibodies to MEDEL V not detected; does not exclude earlyacute or recovered HAV infection. ~Hepatitis B Surface Antibody NONREACTIVE Nonreactive [facility] Comment:Nonreactive: < 8.00 mIU/mL Hepatitis B Core Antibody Nonreactive Nonreactive [facility] Hepatitis C Antibody Nonreactive Nonreactive [facility] Comment:Antibodies to HCV no t detected; does not exclude early acuteHCV infection. Hepatitis B Surface Ag Negative Negative [facility] Blood Venous blood specimen / Unknown 08/14/2024 12:02 PM EDT 08/14/2024 1:22 PM EDT us Jeanna Oleary MD LAB BLOOD ORDERABLES Final Result Performing Organization Address [facility] Co de Phone Number [facility] [address] [place] [phone] * (ABNORMAL) Albumin, Random Urine W/Creatinine (06/13/2024 10:55 AM EST) Creatinine, Urine 87.64 mg/dL [facility] Microalbumin Urine 450.0 mg/L [facility] Microalbum Creatinine Ratio Ur 513.4(H) <30 ug/mg cr [facility] Comment:Albumin/Creatinine R atio Reference Ranges: Normal: < 30 ug/mg creatinine Microalbuminuria: 30 - 300 ug/mg creatinineClinical Albuminuria: > 300 ug/mg creatinine 06/13/2024 10:5 5 AM EST 06/13/2024 1:21 PM EST us Jeanna Oleary MD LAB URINE ORDERABLES Final Result Performing Organization Address [facility] de Phone Number [facility] [address] [place] [phone] * (ABNORMAL) Colonoscopy (02/15/2023) Anatomical Region [...] Most Recently Relevant to Health Maintenance Insurance [employer] H[employer] Care Teams Radio Frequency Technician Relationship Specialty Start Date End Date Jeanna Oleary MD [address] [place] [address] [place] [address] PCP - General Internal Medicine 12/19/16
--- OUTSIDE RECORDS SUMMARY | 2025-03-02 17:21 | XMS_ITS | Encounter Summary ---
Author Organization [employer] Address [address] [facility] [address] [place] [address] Care Team Providers Care Catering Barista Name Role Phone Jeanna Oleary MD Primary Care Provider [phone] Estefanía Cervantes PharmD Unavailable [phone] Reason for Referral * Consultation (Routine) - Authorized Specialty Diagnoses / Procedures Referred By Contac t Referred To Contact Gastroenterology Diagnoses Other cirrhosis of liver (HCC) Jeanna Oleary MD [address] [place] [phone] Phone: tel: fax: Linda Shah MD [address] [place] [address] [address] [place] [address] Phone: tel: fax: Referral ID Status Reason Start Date Expiration Date Visits Requested Visits Authorized [id number] Authorized Specialty Services Required 08/20/2024 08/20/2025 1 1 Encounter Details Date Type Department Care Team (Late st Contact Info) Description 08/20/2024 Orders Only [facility] [address] [place], [place] [phone] Jeanna Oleary MD [address] [place] [phone] Other cirrhosis of liver (CMS/HCC) (Primary Dx) [...] Description 03/09/2025 11:15 AM EST Office Visit [facility] [address] [place] [address] Jeanna Oleary MD [address] [place] [address] Scheduled Referrals Name Type Priority Associated Diagnoses [...] as of this encounter Care Teams Catering Barista Relationship Specialty Start Date End Date Jeanna Oleary MD [address] [place] [phone] PCP - General Internal Medicine 12/19/16 Estefanía Cervantes PharmD [address] [place] [phone] Pharmacist Internal Medicine 06/03/24 01/25/25 documented as of this encounter
--- OUTSIDE RECORDS SUMMARY | 2025-03-02 17:21 | XMS_ITS | Encounter Summary ---
Author Organization [employer] Address [address] [facility] [address]t [place] [address] Care Team Providers Care Direct Marketing Analyst Name Role Phone Jeanna Oleary MD Primary Care Provider [phone] Estefanía Cervantes PharmD Unavailable [phone] Encounter Details Date Type Department Care Team (Late st Contact Info) Description 07/11/2024 Orders Only [facility] [address] [place] [address] Jeanna Oleary MD [address] [place], [place] [phone] Hepatomegaly (Primary Dx); Primary osteoarthritis of other [...] Upcoming Encounters Date Type Department Care Team ([facility] st Contact Info) Description 03/09/2025 11:15 AM EST Office Visit [facility] [address] [place] [address] Jeanna Oleary MD [address] [place] [address] documented as of this encounter Procedures Procedure Name Priority Date/Time Associated Diagnosis Comments US ABDOMEN WYATT W ELASTOGRAPHY Routine 08/20/2024 9:12 AM EDT documented in this encounter Results * US ABDOMEN WYATT W ELASTOGRAPHY (08/20/2024 9:12 AM EDT) Anatomical Region Laterality Modality Abdomen Ultrasound 08/20/2024 9:12 AM EDT Narrative 08/20/2024 10:08 AM EDT [address] [address] Ultrasound Report Signed Patient: Jaime Hamlin MR#: [id number] : 1955 Acct:[id number] Age/Sex: 69 / M ADM Date: 08/20/24 Loc: HO.US Attending Dr: Jeanna Oleary MD Ordering Physician: Jeanna Oleary MD Date of Service: 08/20/24 Procedure(s): US abdomen wyatt w elastography Accession Number(s): [id number] cc: Jeanna Oleary MD EXAMINATION: US ABDOMEN [...] 08/20/24 1005 DD/ 0912 TD/TT: 08/20/24 0935 Medical Assembler: Procedure Note Donotuseinterpreter, Image - 08/20/[address] [address] Ultrasound Report Signed Patient: Jaime Hamlin JMR#: [id number] : 5Acct:[id number] Age/Sex: 69 / MADM Date: 08/20/24 Loc: HO.US Attending Dr: Jeanna Oleary MD Ordering Physician: Jeanna Oleary MD Date of Service: 08/20/24 Procedure(s): US abdomen wyatt w elastography Accession Number(s): [id number] cc: Jeanna Oleary MD EXAMINATION: US ABDOMEN [...] 08/20/24 1005 DD/ 0912 TD/TT: 08/20/24 0935 Medical Assembler: us Jeanna Oleary MD IMG US PROCEDURES Final Res ult documented in this encounter Visit Diagnoses Diagnosis Hepatomegaly- Primary Primary osteoarthritis of other site documented in this encounter Additional Health Concerns Assessment Noted Time PHQ-9 Depression Total Score: 3 06/16/19 25 10:59 AM EST documented as of this encounter Care Teams Direct Marketing Analyst Relationship Specialty Start Date End Date Jeanna Oleary MD [address] [place] [address] PCP - General Internal Medicine 12/19/16 Estefanía Cervantes PharmD [address] [place] [address] Pharmacist Internal Medicine 06/03/24 01/25/25 documented as of this encounter
--- OUTSIDE RECORDS SUMMARY | 2025-03-02 17:21 | XMS_ITS | Encounter Summary ---
Author Organization [employer] Address 75 [facility] 7t [place] [address] Care Team Providers Care Kettle Cleaner Name Role Phone Jeanna Oleary MD Primary Care Provider [phone] Encounter Details Date Type Department Care Team ([facility] st Contact Info) Description 03/01/2025 Orders Only GENERIC EXTERNAL DATA DEPARTMENT [...] Upcoming Encounters Date Type Department Care Team ([facility] st Contact Info) Description 03/09/2025 11:15 AM EST Office Visit [facility] MED & PEDS [address] [place], [place] [phone] Jeanna Oleary MD [address] [place], [place] [phone] documented as of this encounter Procedures Procedure Name Priority Date/Time Associated Diagnosis Comments CBC WITH AUTO DIFFERENTIAL Routine 03/01/2025 11:02 AM EDT COMPREHENSIVE METABOLIC PANEL Routine 03/01/2025 11:02 AM EDT documented in this encounter Results * (ABNORMAL) Comprehensive Metabolic Panel (03/01/2025 11:02 AM EDT) Sodium 137 135 - 145 mmol/L [facility] Potassium 4.3 3.3 - 5.1 mmol/L [facility] Chloride 106 96 - 108 mmol/L [facility] Carbon Dioxide 24 22 - 29 mmol/L [facility] Anion Gap 11(L) 12 - 20 [facility] Urea Nitrogen (BUN) 14 9 - 16 mg/dL [facility] Creatinine, Serum 0.93 0.5 - 1.4 mg/dL [facility] Creatinine Clr Calc Pharmacy 71.5 [facility] Comment:eGFR (calculated fro m the MDRD study equation) and eCrCl(calculated from the Cockcroft-Gault equation) are based ondifferent parameters and may not yield comparable results.If eCrCl result is absurd, please check patient'sheight/weight. Estimated Glomerular Filt Rate >60 [facility] Comment:Chronic Kidney Disea se: Estimated GFR < 60 mL/min/1.22p7Ooobjy Kidney Disease: Estimated GFR < 15 mL/min/1.73m2 Glucose 156(H) 60 - 115 mg/dL [facility] Calcium 8.9 8.4 - 10.2 mg/dL [facility] Bilirubin, Total 0.4 0.0 - 1.0 mg/dL [facility] Aspartate Amino Transferase 23 5 - 37 U/L [facility] Alanine Aminotransferase 26 0 - 40 U/L [facility] Total Protein 6.3(L) 6.5 - 8.0 g/dL [facility] Albumin Level 3.7 3.5 - 5.0 g/dL [facility] Alkaline Phosphatase 62 39 - 117 U/L [facility] 03/01/2025 11:0 2 AM EDT 03/01/2025 11:04 AM EDT us Generic External Data Provider LAB BLOOD ORDERAB LES Final Result [facility] [address] [place] [phone] * (ABNORMAL) CBC auto differential (03/01/2025 11:02 AM EDT) White Blood Count 4.6(L) 4.8 - 10.8 X10*3/uL [facility] Red Blood Count 4.60 4.60 - 5.80 X10*6/uL [facility] Hemoglobin 12.3(L) 14.0 - 18.0 g/dl [facility] Hematocrit 38.5(L) 42.0 - 52.0 % [facility] Mean Corpuscular Volume 83.7 80.0 - 98.0 fL [facility] Mean Corpuscular Hemoglobin 26.7(L) 27.0 - 33.0 pg [facility] Mean Corpuscular HGB Conc 31.9 31.0 - 36.0 g/dl [facility] Red Cell Distribution Width 14.6 11.0 - 16.0 % [facility] Platelet Count 150(L) 160 - 400 X10*3/uL [facility] Mean Platelet Volume 10.4 9.4 - 12.4 fL [facility] Neutrophils Percent Auto 58.6 45 - 73 % [facility] Imm Gran Pct Auto 0.4 0.0 - 0.4 % [facility] Lymphocytes Percent Auto 29.8 20 - 40 % [facility] Monocytes Percent Auto 9.3 2 - 11 % [facility] Eosinophils Percent Auto 1.5 0 - 4 % [facility] Basophils Percent Auto 0.4 0 - 2 % [facility] NRBC Pct Auto 0.0 0.0 - 0.2 /100WBC [facility] Neutrophils Absolute Auto 2.7 2.0 - 8.3 x10*3/uL [facility] Imm Gran Abs Auto 0.02 0.00 - 0.03 X10*3/uL [facility] Lymphocytes Absolute Auto 1.4 1.2 - 4.9 X10*3/uL [facility] Monocytes Absolute Auto 0.4 0.1 - 1.2 X10*3/uL [facility] Eosinophils Absolute Auto 0.1 0.0 - 0.4 X10*3/uL [facility] Basophils Absolute Auto 0.0 0.0 - 0.2 X10*3/uL [facility] NRBC Abs Auto 0.000 0.0 - 0.012 X10*3/uL [facility] 03/01/2025 11:0 2 AM EDT 03/01/2025 11:04 AM EDT us Generic External Data Provider LAB BLOOD ORDERAB LES Final Result [facility] [address] [place], [place] [phone] documented in this encounter Visit Diagnoses Not on filedocumented in this encounter Additional Health Concerns Assessment Noted Time PHQ-9 Depression Total Score: 3 06/16/19 25 10:59 AM EST documented as of this encounter Care Teams Kettle Cleaner Relationship Specialty Start Date End Date Jeanna Oleary MD [address] [place] [phone] PCP - General Internal Medicine 12/19/16 documented as of this encounter
--- OUTSIDE RECORDS SUMMARY | 2025-03-02 17:21 | XMS_ITS | Encounter Summary ---
Author Organization [employer] Address 75 [facility] 7t [place] [address] Care Team Providers Care Television Presenter Name Role Phone Jeanna Oleary MD Primary Care Provider [phone] Estefanía Cervantes PharmD Unavailable [phone] Reason for Visit * Reason Comments Med Refill Encounter Details Date Type Department Care Team ([facility] st Contact Info) Description 09/14/2023 Refill [facility] MED & PEDS [address] [place], [place] [phone] Jeanna Oleary MD [address] [place] [address] Type 2 diabetes mellitus without complications (CMS/HCC) [...] Description 03/09/2025 11:15 AM EST Office Visit [facility] MED & PEDS [address] [place] [address] Jeanna Oleary MD [address] [place] [address] documented as of this encounter Visit Diagnoses Diagnosis Type 2 diabetes mellitus without complications (HCC) documented in this encounter Additional Health Concerns Assessment Noted Time PHQ-9 Depression Total Score: 0 11/24/19 23 10:27 AM EDT documented as of this encounter Care Teams Television Presenter Relationship Specialty Start Date End Date Jeanna Oleary MD [address] [place] [address] PCP - General Internal Medicine 12/19/16 Estefanía Cervantes PharmD [address] [place] [address] Pharmacist Internal Medicine 06/03/24 01/25/25 documented as of this encounter
--- OUTSIDE RECORDS SUMMARY | 2025-03-02 17:21 | XMS_ITS | Encounter Summary ---
Author Organization [employer] Address 75 [facility] 7t [place] [address] Care Team Providers Care Compensation Agent Name Role Phone Jeanna Oleary MD Primary Care Provider [phone] Estefanía Cervantes PharmD Unavailable [phone] Reason for Visit * Reason Onset Date Comments Referral 11/13/2023 Encounter Details Date Type Department Care Team (Late st Contact Info) Description 11/13/2023 Telephone [facility] [address] [place] [address] Jeanna Oleary MD [address] [place] [address] Referral Social History Tobacco Use Types Packs/Day [...] 11/14/2023 10:06 AM EDT Referral faxed to [facility] as requested. * Telephone Encounter - Gene Kumari - 11/13/2023 2:59 PM EDT Tc from pt requesting for Podiatry referral to be sent over to [facility] in [place] due to location being easier. documented in this encounter Plan of Treatment Upcoming Encounters Date Type Department Care Team (Late st Contact Info) Description 03/09/2025 11:15 AM EST Office Visit [facility] MED & PEDS [address] [place] [address] Jeanna Oleary MD [address] [place] [address] documented as of this encounter Visit Diagnoses Not on filedocumented in this encounter Additional Health Concerns Assessment Noted Time PHQ-9 Depression Total Score: 0 11/24/19 23 10:27 AM EDT documented as of this encounter Care Teams Compensation Agent Relationship Specialty Start Date End Date Jeanna Oleary MD [address] [place] [address] PCP - General Internal Medicine 12/19/16 Estefanía Cervantes PharmD [address] [place] [phone] Pharmacist Internal Medicine 06/03/24 01/25/25 documented as of this encounter
== END 2025-03-02 14:42 | disposition home or self-care (01) ==
LOC: HO.HGI 13:41
PROVIDERS: PCP Internal Medicine; Visit Provider Internal Medicine Gastroenterology
DX: K74.60 Unspecified cirrhosis of liver (principal)
CPT/HCPCS: 99204

== ENCOUNTER → 2025-03-02 13:41 | Outpatient (BNVA) | payer MEDICARE, SELFPAY | PROVIDERS: PCP Internal Medicine; Visit Provider Internal Medicine Gastroenterology | DX: K74.60 Unspecified cirrhosis of liver (principal); E66.01 Morbid (severe) obesity due to excess calories | CPT/HCPCS: 99202 ==

== ENCOUNTER 2025-04-09 10:03 | Outpatient (REF) | payer MEDICARE, SELFPAY ==
--- OUTSIDE RECORDS SUMMARY | 2024-02-15 05:30 | XMS_ITS ---
Author Organization [facility] Address [address] [place] [address] Care Team Providers Care Certified Pesticide Applicator Name Role Phone Richard Oleary MD Primary Care Provider Jas Sommer Unavailable [phone] Encounters Encounter Location Date Provider Diagnosis [address] [address] 02/15/2024 Jas Love Plan Of Treatment No Information Progress Notes * Jaime HAMLINDOB:[birth year] (69 yo M)Acc No.[id number]:02/15/2024 Progress Notes Patient: Jaime SPARKS Provider: Blanca Love DPM :1955 A ge:68 Y S ex:Male Date:02/15/2024 Address:[address] [place] [address] Pcp:Richard Oleary MD Subjective: * Chief Complaints: * * Medical History: Objective: * Vitals: Assessment: Plan: * Treatment: * Images: * The named appointment provid er may or may not be the originator of this progress note, and it is not deemed complete until electronically signed by the appointment provider. Sign off status: Pending * Provider: Blanca Love DPM Date: Generated for Printi essence/Darek/eTransmitting on: 06/10/2024 11:55 AM EST
--- OUTSIDE RECORDS SUMMARY | 2025-04-09 11:53 | XMS_ITS | Encounter Summary ---
Author Organization [employer] Address 75 [facility] 7 [place] [address] Care Team Providers Care Bioinformatics Computer Scientist Name Role Phone Jeanna Oleary MD Primary Care Provider [phone] Estefanía Cervantes PharmD Unavailable [phone] Reason for Referral * Consultation (Routine) - Closed Specialty Diagnoses / Procedures Referred By Contac t Referred To Contact Cardiology Diagnoses Atrial fibrillation with rapid ventricular response (CMS/HCC) (HCC) Jeanna Oleary MD [address] [place] [address] Phone: tel: fax: Erasmo Daily MD [address] [place] [address] Phone: tel: fax: Referral ID Status Reason Start Date Expiration Date V isits Requested Visits Authorized [id number] Closed Specialty Services Required 03/20/2024 03/20/2025 1 1 Encounter Details Date Type Department Care Team (Late st Contact Info) Description 03/20/2024 Orders Only [facility] CHC MED & PEDS [address] [place], [place] [phone] Jeanna Oleary MD 505 [place], [place] [phone] Atrial fibrillation with rapid ventricular response (CMS/HCC) [...] documented as of this encounter Care Teams Bioinformatics Computer Scientist Relationship Specialty Start Date End Date Jeanna Oleary MD [address] [place] [address] PCP - General Internal Medicine 12/19/16 Estefanía Cervantes PharmD [address] [place] [address] Pharmacist Internal Medicine 06/03/24 01/25/25 documented as of this encounter
--- OUTSIDE RECORDS SUMMARY | 2025-04-09 11:53 | XMS_ITS | Encounter Summary ---
Author Organization [employer] Address 75 [facility] 7 [place] [address] Care Team Providers Care Director Of Medical Education Name Role Phone Jeanna Oleary MD Primary Care Provider [phone] Estefanía Cervantes PharmD Unavailable [phone] Reason for Referral * Consultation (Routine) - Closed Specialty Diagnoses / Procedures Referred By Contac t Referred To Contact Endocrinology Diagnoses Hypogonadism male Jeanna Oleary MD [address] [place] [address] Phone: tel: fax: [facility] [address] [place] [address] Phone: tel: fax: Referral ID Status Reason Start Date Expiration Date V isits Requested Visits Authorized [id number] Closed Specialty Services Required 10/11/2023 10/10/2024 1 1 Encounter Details Date Type Department Care Team (Late st Contact Info) Description 10/11/2023 Orders Only [facility] CHC MED & PEDS [address] [place] [address] Jeanna Oleary MD [address] [place] [address] Hypogonadism male (Primary Dx) Social History Tobacco [...] Testosterone, Total 94(A) 250 - 1100 ng/dL [facility] Comment:Men with clinically significant hypogonadalsymptoms and testosterone values repeatedly inthe range of the 200-300 ng/dL or less, maybenefit from testosterone treatment afteradequate risk and benefits counseling.For additional information, please refer tohttp://education.[employer]/faq/[email or web address](This link is being provided for informational/educational purposes only.)This test was developed and its analytical performancecharacteristics have been determined by [employer] [place], [place]. It hasnot been cleared or approved by the U.S. Food and DrugAdministration. This assay has been validated pursuantto the CLIA regulations and is used for clinicalpurposes.THIS TEST WAS PERFORMED AT:[employer] [id number] [place] [address]OOYSEXRLEONORA MCNEIL MD,PHD Blood Venous blood specimen / Unknown 10/16/2023 2:12 PM EDT 10/16/2023 5:54 PM EDT Jeanna Oleary MD LAB BLOOD ORDERABLES Final Result [facility] [address] [place] [address] [phone] documented in this encounter Visit Diagnoses Diagnosis Hypogonadism male- Primary Other testicular hypofunction documented in this encounter Additional Health Concerns Assessment Noted Time PHQ-9 Depression Total Score: 0 11/24/19 23 10:27 AM EDT documented as of this encounter Care Teams Director Of Medical Education Relationship Specialty Start Date End Date Jeanna Oleary MD [address] [place] [address] PCP - General Internal Medicine 12/19/16 Estefanía Cervantes PharmD [address] [place] [address] Pharmacist Internal Medicine 06/03/24 01/25/25 documented as of this encounter
--- OUTSIDE RECORDS SUMMARY | 2025-04-09 11:53 | XMS_ITS | Encounter Summary ---
Author Organization [employer] Address 75 [facility] 7t [place] [address] Care Team Providers Care Sea Captain Name Role Phone Jeanna Oleary MD Primary Care Provider [phone] Estefanía Cervantes PharmD Unavailable [phone] Reason for Visit * Reason Onset Date Comments Med Refill 12/02/2024 Encounter Details Date Type Department Care Team ([facility] st Contact Info) Description 12/02/2024 Telephone [facility] CHC MED & PEDS [address] [place], [place] [phone] Jeanna Oleary MD 505 [place], [place] [phone] Med Refill Social History Tobacco Use Types [...] 9:57 AM EDT Medication was sent to [facility] on 09/04/24 with 3 refills. * Telephone Encounter - Diogenes Mckeon - 12/02/2024 9:45 AM EDT TC from pt requesting medication refill. Medications needing refill : Mounjaro 15 MG/0.5ML solution auto-injector To be sent to: [facility] [place] - [address] [facility] documented in this encounter Plan of Treatment Not on file documented as of this encounter Visit Diagnoses Not on filedocumented in this encounter Additional Health Concerns Assessment Noted Time PHQ-9 Depression Total Score: 3 06/16/19 10:59 AM EST documented as of this encounter Care Teams Sea Captain Relationship Specialty Start Date End Date Jeanna Oleary MD [address] [place] [address] PCP - General Internal Medicine 12/19/16 Estefanía Cervantes, Gianni [address] [place] [address] Pharmacist Internal Medicine 06/03/24 01/25/25 documented as of this encounter
--- OUTSIDE RECORDS SUMMARY | 2025-04-09 11:53 | XMS_ITS | Encounter Summary ---
Author Organization [employer] Address 75 [facility] 7t [place] [address] Care Team Providers Care Marine Electronics Repairer Name Role Phone Jeanna Oleary MD Primary Care Provider [phone] Estefanía Cervantes PharmD Unavailable [phone] Encounter Details Date Type Department Care Team (Late st Contact Info) Description 01/29/2024 Orders Only [facility] CHC MED & PEDS [address] [place], [place] [phone] Jeanna Oleary MD [address] [place] [address] Class 3 severe obesity due to excess calories without serious comorbidity with body mass index (BMI) of 40.0 to 44.9 in adult (CMS/HCC) (Primary Dx); Type 2 diabetes mellitus with hyperglycemia, with long-term current use of insulin ([facility]) Social History Tobacco Use Types Packs/Day [...] as of this encounter Care Teams Marine Electronics Repairer Relationship Specialty Start Date End Date Jeanna Oleary MD [address] [place] [address] PCP - General Internal Medicine 12/19/16 Estefanía Cervantes PharmD [address] [place] [address] Pharmacist Internal Medicine 06/03/24 01/25/25 documented as of this encounter
--- OUTSIDE RECORDS SUMMARY | 2025-04-09 11:53 | XMS_ITS | Encounter Summary ---
Author Organization [employer] Address 75 [facility] 7t [place] [address] Care Team Providers Care Receiving Supervisor Name Role Phone Jeanna Oleary MD Primary Care Provider [phone] Estefanía Cervantes PharmD Unavailable [phone] Encounter Details Date Type Department Care Team (Late st Contact Info) Description 11/07/2023 Orders Only [facility] CHC MED & PEDS [address] [place], [place] [phone] Jeanna Oleary MD [address] [place], [place] [phone] Type 2 diabetes mellitus with hyperglycemia, with long-term current use of insulin ([facility]) (Primary Dx) Social History Tobacco [...] documented as of this encounter Care Teams Receiving Supervisor Relationship Specialty Start Date End Date Jeanna Oleary MD [address] [place] [address] PCP - General Internal Medicine 12/19/16 Estefanía Cervantes PharmD [address] [place] [address] Pharmacist Internal Medicine 06/03/24 01/25/25 documented as of this encounter
--- OUTSIDE RECORDS SUMMARY | 2025-04-09 11:53 | XMS_ITS | Encounter Summary ---
Author Organization [employer] Address 75 [facility] 7t [place] [address] Care Team Providers Care Clinching Machine Operator Name Role Phone Jeanna Oleary MD Primary Care Provider [phone] Estefanía Cervantes PharmD Unavailable [phone] Encounter Details Date Type Department Care Team (Late st Contact Info) Description 09/05/2023 Orders Only [facility] CHC MED & PEDS [address] [place], [place] [phone] Jeanna Oleary MD [address] [place] [address] Hyperkalemia (Primary Dx); Type 2 diabetes mellitus with hyperglycemia, with long-term current use of insulin ([facility]/HCC); Erectile disorder Social History Tobacco Use [...] Name Priority Date/Time Associated Diagnosis Comments TESTOSTERONE, FREE, BIOAVAILABLE AND TOTAL, MALES (ADULT), [place] Routine 10/03/2023 12:52 PM EDT Erectile disorder documented in this encounter Results * (ABNORMAL) Testosterone, Free (Dialysis) And Total, MS (10/03/2023 12:52 PM EDT) Pathologist [facility] Testosterone, Total 98(A) 250 - 1100 ng/dL [facility] Comment:Men with clinically significant hypogonadalsymptoms and testosterone values repeatedly inthe range of the 200-300 ng/dL or less, maybenefit from testosterone treatment afteradequate risk and benefits counseling.For additional information, please refer tohttp://education.[employer]/faq/JqakiVhzleoghxlauONOAHSPQA156(This link is being provided for informational/educational purposes only.)This test was developed and its analytical performancecharacteristics have been determined by [employer] [place], [place]. It hasnot been cleared or approved by the U.S. Food and DrugAdministration. This assay has been validated pursuantto the CLIA regulations and is used for clinicalpurposes. Testosterone, Free 14.7(A) 35.0 - 155.0 pg/mL [facility] Comment:This test was develo ped and its analytical performancecharacteristics have been determined by [employer] [place], [place]. It hasnot been cleared or approved by the U.S. Food and DrugAdministration. This assay has been validated pursuantto the CLIA regulations and is used for clinicalpurposes.THIS TEST WAS PERFORMED AT:[employer] [place] [address]GCWPXNULEONORA MCNEIL MD,PHD Blood Venous blood specimen / Unknown 10/03/2023 12:52 PM EDT 10/03/2023 4:32 PM EDT Jeanna Oleary MD LAB BLOOD ORDERABLES Final Result [facility] [address] [place] [address] [phone] documented in this encounter Visit Diagnoses Diagnosis Hyperkalemia- Primary Hyperpotassemia Type 2 diabetes mellitus with hyperglycemia, with long-term current use of insulin (HCC) Erectile disorder documented in this encounter Additional Health Concerns Assessment Noted Time PHQ-9 Depression Total Score: 0 11/24/19 23 10:27 AM EDT documented as of this encounter Care Teams Clinching Machine Operator Relationship Specialty Start Date End Date Jeanna Oleary MD [address] [place] [address] PCP - General Internal Medicine 12/19/16 Estefanía Cervantes PharmD [address] [place] [address] Pharmacist Internal Medicine 06/03/24 01/25/25 documented as of this encounter
--- OUTSIDE RECORDS SUMMARY | 2025-04-09 11:53 | XMS_ITS | Encounter Summary ---
Author Organization [employer] Address 75 [facility] 7t [place] [address] Care Team Providers Care Production Illustrator Name Role Phone Jeanna Oleary MD Primary Care Provider [phone] Estefanía Cervantes PharmD Unavailable [phone] Encounter Details Date Type Department Care Team (Late st Contact Info) Description 06/16/2024 Orders Only [facility]C MED & PEDS [address] [place], [place] [phone] Jeanna Oleary MD [address] [place] [address] Social History Tobacco Use Types Packs/Day Years [...] documented as of this encounter Care Teams Production Illustrator Relationship Specialty Start Date End Date Jeanna Oleary MD [address] [place] [address] PCP - General Internal Medicine 12/19/16 Estefanía Cervantes PharmD [address] [place] [address] Pharmacist Internal Medicine 06/03/24 01/25/25 documented as of this encounter
--- OUTSIDE RECORDS SUMMARY | 2025-04-09 11:53 | XMS_ITS | Encounter Summary ---
Author Organization [employer] Address 75 [facility] 7t [place] [address] Care Team Providers Care Senior Clinical Research Associate Name Role Phone Jeanna Oleary MD Primary Care Provider [phone] Estefanía Cervantes PharmD Unavailable [phone] Reason for Visit * Reason Comments Med Refill Encounter Details Date Type Department Care Team ([facility] st Contact Info) Description 09/14/2023 Refill [facility] MED & PEDS [address] [place], [place] [phone] Jeanna Oleary MD [address] [place] [address] Type 2 diabetes mellitus without complications (CMS/HCC) [...] as of this encounter Care Teams Senior Clinical Research Associate Relationship Specialty Start Date End Date Jeanna Oleary MD [address] [place] [address] PCP - General Internal Medicine 12/19/16 Estefanía Cervantes PharmD [address] [place] [address] Pharmacist Internal Medicine 06/03/24 01/25/25 documented as of this encounter
--- OUTSIDE RECORDS SUMMARY | 2025-04-09 11:53 | XMS_ITS | Encounter Summary ---
Author Organization [employer] Address 75 [facility] 7t [place] [address] Care Team Providers Care Print Line Inspector Name Role Phone Jeanna Oleary MD Primary Care Provider [phone] Estefanía Cervantes PharmD Unavailable [phone] Encounter Details Date Type Department Care Team (Late st Contact Info) Description 09/20/2023 Orders Only [facility] CHC MED & PEDS [address] [place], [place] [phone] Jeanna Oleary MD [address] [place], [place] [phone] Type 2 diabetes mellitus with hyperglycemia, with long-term current use of insulin ([facility]) (Primary Dx) Social History Tobacco [...] documented as of this encounter Care Teams Print Line Inspector Relationship Specialty Start Date End Date Jeanna Oleary MD [address] [place] [address] PCP - General Internal Medicine 12/19/16 Estefanía Cervantes PharmD [address] [place] [address] Pharmacist Internal Medicine 06/03/24 01/25/25 documented as of this encounter
--- OUTSIDE RECORDS SUMMARY | 2025-04-09 11:54 | XMS_ITS | Encounter Summary ---
Author Organization [employer] Address [address] [facility] 7[address] [place] [address] Care Team Providers Care Analyzer Sales Name Role Phone Jeanna Oleary MD Primary Care Provider [phone] Estefanía Cervantes PharmD Unavailable [phone] Reason for Visit * Reason Onset Date Comments Referral 11/13/2023 Encounter Details Date Type Department Care Team (Late st Contact Info) Description 11/13/2023 Telephone [facility] [address] [place] [address] Jeanna Oleary MD [address] [place] [address] Referral Social History Tobacco Use Types Packs/Day [...] 11/14/2023 10:06 AM EDT Referral faxed to [facility] as requested. * Telephone Encounter - Gene Kumari - 11/13/2023 2:59 PM EDT Tc from pt requesting for Podiatry [facility] [place] [facility] to location being easier. documented in this encounter Plan of Treatment Not on file documented as of this encounter Visit Diagnoses Not on filedocumented in this encounter Additional Health Concerns Assessment Noted Time PHQ-9 Depression Total Score: 0 11/24/19 23 10:27 AM EDT documented as of this encounter Care Teams Analyzer Sales Relationship Specialty Start Date End Date Jeanna Oleary MD [address] [place] [address] PCP - General Internal Medicine 12/19/16 Estefanía Cervantes PharmD [address] [place] [address] Pharmacist Internal Medicine 06/03/24 01/25/25 documented as of this encounter
--- OUTSIDE RECORDS SUMMARY | 2025-04-09 11:55 | XMS_ITS | Encounter Summary ---
Author Organization [employer] Address [address] [facility] [address] [place] [address] Care Team Providers Care Beef Breaker Name Role Phone Jeanna Oleary MD Primary Care Provider [phone] Estefanía Cervantes PharmD Unavailable [phone] Reason for Referral * Consultation (Routine) - Closed Specialty Diagnoses / Procedures Referred By Contac t Referred To Contact Gastroenterology Diagnoses Other cirrhosis of liver (HCC) Jeanna Oleary MD [address] [place] [phone] Phone: tel: fax: Linda Shah MD [address] [place] [address] [address] [place] [address] Phone: tel: fax: Referral ID Status Reason Start Date Expiration Date V isits Requested Visits Authorized [id number] Closed Specialty Services Required 08/20/2024 08/20/2025 1 1 Encounter Details Date Type Department Care Team (Late st Contact Info) Description 08/20/2024 Orders Only [facility] [address] [place], [place] [phone] Jeanna Oleary MD [address] [place] [phone] Other cirrhosis of liver (CMS/HCC) (Primary Dx) [...] documented as of this encounter Care Teams Beef Breaker Relationship Specialty Start Date End Date Jeanna Oleary MD [address] [place] [address] PCP - General Internal Medicine 12/19/16 Estefanía Cervantes, DayneD [address] [place] [address] Pharmacist Internal Medicine 06/03/24 01/25/25 documented as of this encounter
--- OUTSIDE RECORDS SUMMARY | 2025-04-09 11:55 | XMS_ITS | Clinical Summary ---
Author Organization [employer] Address [address] [facility] 7[address] [place] [address] Care Team Providers Care Environmental Conservation Officer Name Role Phone Jeanna Oleary MD Primary Care Provider [phone] Allergies Active Allergy Reactions Criticality Noted Date Comments Hydroxyzine 08/16/2022 Other reaction(s): ITCHY Other reaction(s): ITCHY Medications glucose-vitamin C 4-6 GM-MG oral gel 1 tab as needed if FS less than 70 mg/dl 020 Active fexofenadine (Yadira) 180 MG tabletIndication s:Pruritus, unspecified TAKE ONE TABLET BY MOUTH EVERY DAY 90 tablet 1 023 Active OneTouch Ultra Test test stripIndications :Type 2 diabetes mellitus without complications (HCC) TEST BLOOD SUGAR SIX TIMES DAILY 200 strip 5 024 Active Ostomy Supplies (Skin Prep Wipes) miscIndications: Type 2 diabetes mellitus with hyperglycemia, with long-term current use of insulin ([facility]) To wipe the skin prior to applying the sensor 2 times a month 50 each 11 024 Active omeprazole (PriLOSEC) [address] capsule TAKE ONE CAPSULE BY MOUTH TWICE DAILY BEFORE MEALS 180 capsule 3 024 Active Xarelto 20 MG tablet TAKE ONE TABLET DAILY WITH SUPPER 90 tablet 3 024 Active Ferrous Sulfate (iron) 325 (65 Fe) MG tablet TAKE ONE TABLET EVERY DAY 30 tablet 3 025 Active Continuous Glucose Sensor (FreeStyle Yahir 2 Plus Sensor) miscIndications: Type 2 diabetes mellitus with hyperglycemia, with long-term current use of insulin ([facility]) 1 each Once per day. 2 each 03/26/20 25 12:03 PM EST 025 Active rosuvastatin (Crestor) 40 MG tabletIndication s:Hypercholester olemia TAKE ONE TABLET BY MOUTH EVERY DAY 90 tablet 5 025 Active hydrOXYzine HCl (Atarax) 50 MG tabletIndication s:Pruritus, unspecified TAKE ONE TABLET FOUR TIMES DAILY 120 tablet 5 025 Active doxepin (SINEquan) 25 MG capsuleIndicatio ns:Pruritus, unspecified TAKE 1 TO 2 CAPSULES EVERY NIGHT AT BEDTIME 60 capsule 5 03/26/20 25 12:03 PM EST 025 Active Mounjaro 15 MG/0.5ML solution auto-injectorInd ications:Class 3 severe obesity due to excess calories without serious comorbidity with body mass index (BMI) of 40.0 to 44.9 in adult ([facility]),Type 2 diabetes mellitus with hyperglycemia, with long-term current use of insulin ([facility]) inject 15 mg's SUBCUTANEOUSLY ONCE WEEKLY 2 mL 3 03/26/20 25 12:03 PM EST 025 Active cholecalciferol (Vitamin D-3) 25 MCG tabletIndication s:Vitamin D deficiency TAKE ONE TABLET DAILY 90 tablet 1 025 Active Diclofenac Sodium 1 % gelIndications:T ail bone pain To apply to the affected area 3 times a day 50 g 025 Active losartan (Cozaar) 25 MG tabletIndication s:Benign hypertension Take 1 tablet (25 mg) by mouth Once per day. 90 tablet 03/26/20 25 12:03 PM EST 025 Active metoprolol succinate XL (Toprol-XL) 25 MG 24 hr tablet TAKE ONE TABLET EVERY MORNING 90 tablet 3 03/26/20 25 12:03 PM EST 025 Active gabapentin (Neurontin) 800 MG tablet TAKE ONE TABLET BY MOUTH THREE TIMES DAILY 270 tablet 1 025 Active metoprolol succinate XL (Toprol-XL) 25 MG 24 hr tablet TAKE ONE TABLET EVERY MORNING 90 tablet 3 024 2024 Discontinued gabapentin (Neurontin) 800 MG tablet TAKE ONE TABLET BY MOUTH THREE TIMES DAILY 270 tablet 1 025 2024 Discontinued Active Problems Problem Noted Date Diagnosed Date Atrial fibrillation with rap id ventricular response (CMS/HCC) 09/29/2021 Benign hypertension 09/29/2021 Gastroesophageal reflux disease 06/20/2021 Obstructive sleep apnea syndrome 06/20/2021 Injury of kidney 06/20/2021 Hyperlipidemia 06/20/2021 Osteoarthritis 06/20/2021 Pulmonary hypertension (CMS/HCC) 06/20/2021 Stage 3a chronic kidney disease (CMS/HCC) 2020 Gastric polyposis 12/02/2019 Obesity 04/18/2017 Chronic obstructive lung disease 12/19/2016 Diabetic neuropathy 12/19/2016 Type 2 diabetes mellitus 12/19/2016 Encounters Date Type Department Care Team Description 03/24/2025 Refill [facility] [address] [place] [address] Jeanna Oleary MD 03/09/2025 11:15 AM EST Office Visit [facility] [address] [place] [address] Jeanna Oleary MD Encounter for removal of sutures (Primary Dx); Type 2 diabetes mellitus without complication, without long-term current use of insulin ([facility]) 03/09/2025 Travel 03/02/2025 Telephone [facility] [address] [place] [address] Jeanna Oleary MD ER Follow-up (Stitches ) 03/01/2025 Orders Only GENERIC EXTERNAL DATA DEPARTMENT Provider, Generic External Data 02/12/2025 Results Follow-Up [facility] [address] [place] [address] Jeanna Oleary MD CBC 02/12/2025 Orders Only GENERIC EXTERNAL DATA DEPARTMENT Provider, Generic External Data 01/26/2025 9:00 AM EDT Telemedicine [facility] [address] [place] [address] Estefanía Cervantes, Gianni Type 2 diabetes mellitus without complication, without long-term current use of insulin ([facility]) (Primary Dx); Benign hypertension 01/26/2025 Travel from Last 3 Months Immunizations Immunization Administration [...] Sign Reading Time Taken Comments Blood Pressure 118/72 03/09/2025 11:33 AM EST Pulse 68 03/09/2025 11:33 AM EST Temperature 36.5 C (97.7 F) 12/29/2024 11:29 AM EDT Respiratory Rate 20 03/09/2025 11:33 AM EST Oxygen Saturation 98% 03/09/2025 11:33 AM EST Inhaled Oxygen Concentration - - Weight 77.6 kg (171 lb) 03/09/2025 11:33 AM EST Height 175.3 cm (5' 9 ) 03/09/2025 11:33 AM EST Body Mass Index 25.25 03/09/2025 11:33 AM EST Plan of Treatment Health Maintenance Due Date [...] 07/01/2025 025, 06/16/2024, 02/20/2024, Additional history exists COVID-19 Vaccine ( season) 2025 02/05/2025, 07/31/2024, 01/09/2024, Additional history exists DTaP/Tdap/Td Vaccines (2 - Td or Tdap) 11/08/2025 11/09/2015 Lipid Panel 02/12/2026 02/12/2025, 11/26/2023 Tobacco Screening 03/09/2026 03/09/2025 Colonoscopy 02/16/2028 02/15/2023 Colorectal Cancer Screening 02/16/2028 Zoster Vaccines Completed 02/25/2019, 12/05, 11/09/2015, Additional history exists Pneumococcal Vaccine: 50+ Years Completed 01/24/2021, 01/19/2020, 11/09/2015, Additional history exists RSV Patients and Patients Aged 60 years or older Completed 01/19/2023 Hepatitis C Screening Completed 08/14/2024 Hepatitis B Vaccines Completed 12/29/2024, 03/04/2018, 12/31/2017, Additional history exists Influenza Vaccine Completed 02/05/2025, [...] Procedure Name Priority Date/Time Associated Diagnosis Comments SUTURE REMOVAL Routine 03/09/2025 12:52 PM EST Encounter for removal of sutures COMPREHENSIVE METABOLIC PANEL Routine 03/01/2025 11:02 AM EDT CBC WITH AUTO DIFFERENTIAL Routine 03/01/2025 11:02 AM EDT TESTOSTERONE, TOTAL, MALES (ADULT), IA Routine 02/12/2025 10:29 AM EDT CBC Routine 02/12/2025 10:29 AM EDT LIPID PANEL, STANDARD Routine 02/12/2025 10:29 AM EDT Type 2 diabetes mellitus with hyperglycemia, with long-term current use of insulin (HCC) PSA, TOTAL Routine 02/12/2025 10:09 AM EDT POCT GLYCATED HEMOGLOBIN, TOTAL Routine 12/29/2024 11:58 AM EDT Type 2 diabetes mellitus with hyperglycemia, with long-term current use of insulin (CMS/HCC) HEPATITIS PANEL, GENERAL Routine 08/14/2024 12:02 PM EDT Transaminitis ALBUMIN, RANDOM URINE W/CREATININE Routine 06/13/2024 10:55 AM EST COLONOSCOPY Routine 02/15/2023 HM DIABETES EYE EXAM Routine 02/07/2023 from Last 3 Months or Most Recently Relevant to Health Maintenance Results * Suture Removal (03/09/2025 12:52 PM EST) Jeanna Hernandez MD - 03/09/2025 12:52 PM EST Jeanna Oleary MD 03/09/2025 12:56 PM Suture Removal Date/Time: 03/09/2025 12:52 PM Performed by: Jeanna Oleary MD Authorized by: Jeanna Oleray MD Consent: Consent obtained: Verbal and written Consent given by: Patient Risks discussed: Bleeding, pain and wound separation Alternatives discussed: Observation Laurel protocol: Procedure explained and questions answered to patient or proxy's satisfaction: yes Relevant documents present and verified: no Test results available: no Imaging studies available: no Required blood products, implants, devices, and special equipment available: no Site/side marked: no Immediately prior to procedure, a time out was called: yes Patient identity confirmed: Verbally with patient Location: Location: right hip. Procedure details: Wound appearance: No signs of infection Number of sutures removed: 2 Number of anatoliy removed: 2 Post-procedure details: Post-removal: Dressing applied and Band-Aid applied Procedure completion: Tolerated well, no immediate complications us Jeanna Oleary MD IN CLINIC/BEDSIDE ORDERABLE S Final Result * (ABNORMAL) CBC auto differential (03/01/2025 11:02 AM EDT) White Blood Count 4.6(L) 4.8 - 10.8 X10*3/uL [facility] Red Blood Count 4.60 4.60 - 5.80 X10*6/uL [facility] Hemoglobin 12.3(L) 14.0 - 18.0 g/dl [facility] Hematocrit 38.5(L) 42.0 - 52.0 % [facility] Mean Corpuscular Volume 83.7 80.0 - 98.0 fL [facility] Mean Corpuscular Hemoglobin 26.7(L) 27.0 - 33.0 pg [facility] Mean Corpuscular HGB Conc 31.9 31.0 - 36.0 g/dl [facility] Red Cell Distribution Width 14.6 11.0 - 16.0 % [facility] Platelet Count 150(L) 160 - 400 X10*3/uL [facility] Mean Platelet Volume 10.4 9.4 - 12.4 fL [facility] Neutrophils Percent Auto 58.6 45 - 73 % [facility] Imm Gran Pct Auto 0.4 0.0 - 0.4 % [facility] Lymphocytes Percent Auto 29.8 20 - 40 % [facility] Monocytes Percent Auto 9.3 2 - 11 % [facility] Eosinophils Percent Auto 1.5 0 - 4 % [facility] Basophils Percent Auto 0.4 0 - 2 % [facility] NRBC Pct Auto 0.0 0.0 - 0.2 /100WBC [facility] Neutrophils Absolute Auto 2.7 2.0 - 8.3 x10*3/uL [facility] Imm Gran Abs Auto 0.02 0.00 - 0.03 X10*3/uL [facility] Lymphocytes Absolute Auto 1.4 1.2 - 4.9 X10*3/uL [facility] Monocytes Absolute Auto 0.4 0.1 - 1.2 X10*3/uL [facility] Eosinophils Absolute Auto 0.1 0.0 - 0.4 X10*3/uL [facility] Basophils Absolute Auto 0.0 0.0 - 0.2 X10*3/uL [facility] NRBC Abs Auto 0.000 0.0 - 0.012 X10*3/uL [facility] 03/01/2025 11:0 2 AM EDT 03/01/2025 11:04 AM EDT us Generic External Data Provider LAB BLOOD ORDERAB LES Final Result [facility] [address] [place] [phone] * (ABNORMAL) Comprehensive Metabolic Panel (03/01/2025 11:02 AM EDT) Sodium 137 135 - 145 mmol/L [facility] Potassium 4.3 3.3 - 5.1 mmol/L [facility] Chloride 106 96 - 108 mmol/L [facility] Carbon Dioxide 24 22 - 29 mmol/L [facility] Anion Gap 11(L) 12 - 20 [facility] Urea Nitrogen (BUN) 14 9 - 16 mg/dL [facility] Creatinine, Serum 0.93 0.5 - 1.4 mg/dL [facility] Creatinine Clr Calc Pharmacy 71.5 [facility] Comment:eGFR (calculated fro m the MDRD study equation) and eCrCl(calculated from the Cockcroft-Gault equation) are based ondifferent parameters and may not yield comparable results.If eCrCl result is absurd, please check patient'sheight/weight. Estimated Glomerular Filt Rate >60 [facility] Comment:Chronic Kidney Disea se: Estimated GFR < 60 mL/min/1.96g9Kcqqxt Kidney Disease: Estimated GFR < 15 mL/min/1.73m2 Glucose 156(H) 60 - 115 mg/dL [facility] Calcium 8.9 8.4 - 10.2 mg/dL [facility] Bilirubin, Total 0.4 0.0 - 1.0 mg/dL [facility] Aspartate Amino Transferase 23 5 - 37 U/L [facility] Alanine Aminotransferase 26 0 - 40 U/L [facility] Total Protein 6.3(L) 6.5 - 8.0 g/dL [facility] Albumin Level 3.7 3.5 - 5.0 g/dL [facility] Alkaline Phosphatase 62 39 - 117 U/L [facility] 03/01/2025 11:0 2 AM EDT 03/01/2025 11:04 AM EDT us Generic External Data Provider LAB BLOOD ORDERAB LES Final Result [facility] [address] [place] [address] [phone] * (ABNORMAL) CBC (02/12/2025 10:29 AM EDT) White Blood Count 5.1 4.8 - 10.8 X10*3/uL [facility] Red Blood Count 5.79 4.60 - 5.80 X10*6/uL [facility] Hemoglobin 15.5 14.0 - 18.0 g/dl [facility] Hematocrit 48.8 42.0 - 52.0 % [facility] Mean Corpuscular Volume 84.3 80.0 - 98.0 fL [facility] Mean Corpuscular Hemoglobin 26.8(L) 27.0 - 33.0 pg [facility] Mean Corpuscular HGB Conc 31.8 31.0 - 36.0 g/dl [facility] Red Cell Distribution Width 14.7 11.0 - 16.0 % [facility] Platelet Count 221 160 - 400 X10*3/uL [facility] Mean Platelet Volume 10.6 9.4 - 12.4 fL [facility] NRBC Pct Auto 0.0 0.0 - 0.2 /100WBC [facility] NRBC Abs Auto 0.000 0.0 - 0.012 X10*3/uL [facility] 02/12/2025 10:2 9 AM EDT 02/12/2025 1:17 PM EDT us Generic External Data Provider LAB BLOOD ORDERAB LES Final Result [facility] [address] [place] [phone] * Testosterone, Total, males (Adult), IA (02/12/2025 10:29 AM EDT) Testosterone, Total 755 250 - 1100 ng/dL [facility] Comment:Men with clinically significant hypogonadalsymptoms and testosterone values repeatedly inthe range of the 200-300 ng/dL or less, maybenefit from testosterone treatment afteradequate risk and benefits counseling.For additional information, please refer [email or web address].[email or web address]/faq/[email or web address](This link is being provided for informational/educational purposes only.)This test was developed and its analytical performancecharacteristics have been determined by [employer] [place], [place]. It hasnot been cleared or approved by the U.S. Food and DrugAdministration. This assay has been validated pursuantto the CLIA regulations and is used for clinicalpurposes.THIS TEST WAS PERFORMED AT:[facility] [address] [place] [phone] MCNEIL MD,PHD 02/12/2025 10:2 9 AM EDT 02/12/2025 1:18 PM EDT us Generic External Data Provider LAB BLOOD ORDERAB LES Final Result Performing Organization Address [facility]/ZIP Co de Phone Number [facility] [address] [place] [phone] * (ABNORMAL) Lipid Panel, Standard (02/12/2025 10:29 AM EDT) Triglycerides 102 <150 mg/dL [facility] Comment:Desirable Triglyceri de: less than 150 mg/dLBorderline High Triglyceride 150-199 mg/dLHigh Triglyceride: 200-499 mg/dLVery High Triglyceride: greater than or equal to 5OO mg/dL Cholesterol 103 <200 mg/dL [facility] Comment:Desirable Cholestero l: less than 200 mg/dLBorderline High Cholesterol: 200-239 mg/dLHigh Cholesterol: greater than 239 mg/dL LDL Cholesterol Calculated 54 <100 mg/dL [facility] Comment:Desirable LDL: less than 100 mg/dLNear Optimal/Above Optimal LDL: 110- 129 mg/dLBorderline High LDL: 130-159 mg/dLHigh LDL: 160-189 mg/dLVery High LDL: greater than or equal to 190 mg/dL HDL Cholesterol 29(L) >40 mg/dL [facility] Comment:Desirable HDL: great er than 40 mg/dL Note: This HDL assay may give artificially low results in patients with liver disease. Blood Venous blood specimen / Unknown 02/12/2025 10:29 AM EDT 02/12/2025 1:18 PM EDT us Jeanna Oleary MD LAB BLOOD ORDERABLES Final Result Performing Organization Address [facility]/ZIP Co de Phone Number [facility] [address] [place] [phone] * PSA,Total (02/12/2025 10:09 AM EDT) Prostate Specific Antigen 0.24 <0.05 - 4.0 ng/mL [facility] Comment:PSA methodology: Angel Perez i ChemiluminescentMicroparticle Immunoassay (CMIA) 02/12/2025 10:0 9 AM EDT 02/12/2025 4:46 PM EDT us Generic External Data Provider LAB BLOOD ORDERAB LES Final Result [facility] [address] [place] [phone] * (ABNORMAL) POCT HGB A1C (12/29/2024 11:58 AM EDT) Hemoglobin A1C 6.1(A) 4.0 - 5.7 % QC Media Lot # [id number] Lot# Expiration Date [id number] Blood 12/29/2024 11:5 8 AM EDT Jeanna Oleary MD POINT OF CARE TEST ENTER/ED IT ORDERABLES Final Result * Hepatitis A,B,C Profile (08/14/2024 12:02 PM EDT) Hepatitis A IgM Nonreactive Nonreactive [facility] Comment:IgM antibodies to MEDEL V not detected; does not exclude earlyacute or recovered HAV infection. ~Hepatitis B Surface Antibody NONREACTIVE Nonreactive [facility] Comment:Nonreactive: < 8.00 mIU/mL Hepatitis B Core Antibody Nonreactive Nonreactive [facility] Hepatitis C Antibody Nonreactive Nonreactive [facility] Comment:Antibodies to HCV no t detected; does not exclude early acuteHCV infection. Hepatitis B Surface Ag Negative Negative [facility] Blood Venous blood specimen / Unknown 08/14/2024 12:02 PM EDT 08/14/2024 1:22 PM EDT us Jeanan Oleary MD LAB BLOOD ORDERABLES Final Result Performing Organization Address [facility]/ZIP Co de Phone Number [facility] [address] [place] [phone] * (ABNORMAL) Albumin, Random Urine W/Creatinine (06/13/2024 10:55 AM EST) Creatinine, Urine 87.64 mg/dL [facility] Microalbumin Urine 450.0 mg/L [facility] Microalbum Creatinine Ratio Ur 513.4(H) <30 ug/mg cr [facility] Comment:Albumin/Creatinine R atio Reference Ranges: Normal: < 30 ug/mg creatinine Microalbuminuria: 30 - 300 ug/mg creatinineClinical Albuminuria: > 300 ug/mg creatinine 06/13/2024 10:5 5 AM EST 06/13/2024 1:21 PM EST us Jeanna Oleary MD LAB URINE ORDERABLES Final Result Performing Organization Address [facility] Co de Phone Number [facility] [address] [place] [phone] * (ABNORMAL) Colonoscopy (02/15/2023) Anatomical Region [...] Most Recently Relevant to Health Maintenance Insurance [facility] MEDICARE ADVANTAGE HMO Care Teams Environmental Conservation Officer Relationship Specialty Start Date End Date Jeanna Oleary MD [address] [place] [phone] PCP - General Internal Medicine 12/19/16
--- OUTSIDE RECORDS SUMMARY | 2025-04-09 11:55 | XMS_ITS | Encounter Summary ---
Author Organization [employer] Address [address] [facility] 7[address] [place] [address] Care Team Providers Care Enterprise Manager Name Role Phone Jeanna Oleary MD Primary Care Provider [phone] Estefanía Cervantse PharmD Unavailable [phone] Encounter Details Date Type Department Care Team (Late st Contact Info) Description 07/11/[address] [facility] [address] [place] [address] Jeanna Oleary MD [address] [place], [place] [phone] Hepatomegaly (Primary Dx); Primary osteoarthritis of other [...] AM EDT Narrative 08/20/2024 10:08 AM EDT [place] [address] Ultrasound Report Signed Patient: Jaime Hamlin MR#: [id number] : 1955 Acct:[id number] Age/Sex: 69 / M ADM Date: 08/20/24 Loc: HO.US Attending Dr: Jeanna Oleary MD Ordering Physician: Jeanna Oleary MD Date of Service: 08/20/24 Procedure(s): US abdomen wyatt w elastography Accession Number(s): [id number] cc: Jeanna Oleary MD EXAMINATION: US ABDOMEN [...] 08/20/24 1005 DD/ 0912 TD/TT: 08/20/24 0935 Negative Spotter: Procedure Note Donotuseinterpreter, Image - 08/20/2024 [place] [address] Ultrasound Report Signed Patient: Jaime Hamlin JMR#: [id number] : 5Acct:[id number] Age/Sex: 69 / MADM Date: 08/20/24 Loc: HO.US Attending Dr: Jeanna Oleary MD Ordering Physician: Jeanna Oleary MD Date of Service: 08/20/24 Procedure(s): US abdomen wyatt w elastography Accession Number(s): [id number] cc: Jeanna Oleary MD EXAMINATION: US ABDOMEN [...] 08/20/24 1005 DD/ 0912 TD/TT: 08/20/24 0935 Negative Spotter: us Jeanna Oleary MD IMG US PROCEDURES Final Res ult documented in this encounter Visit Diagnoses Diagnosis Hepatomegaly- Primary Primary osteoarthritis of other site documented in this encounter Additional Health Concerns Assessment Noted Time PHQ-9 Depression Total Score: 3 06/16/19 25 10:59 AM EST documented as of this encounter Care Teams Enterprise Manager Relationship Specialty Start Date End Date Jeanna Oleary MD [address] [place] [address] PCP - General Internal Medicine 12/19/16 Estefanía Cervantes PharmD [address] [place] [address] Pharmacist Internal Medicine 06/03/24 01/25/25 documented as of this encounter
--- OUTSIDE RECORDS SUMMARY | 2025-04-09 11:55 | XMS_ITS | Patient Health Record ---
Author Organization [facility] [place] Address [address] [place] [address] Care Team Providers Care Exterminator Helper Name Role Phone Richard Oleary MD Primary Care Provider Jas Sommer Unavailable [phone] Allergies No Known Allergies Reason For Referral [...] Problem Acquired hammer toe of right foot (7641070749434 105) Other hammer toe(s) (acquired), right foot (M20.41) Active confirmed Problem Acquired hammer toe of left foot (0684036803861 103) Other hammer toe(s) (acquired), left foot (M20.42) Active confirmed Problem Type 2 diabetes mellitus with peripheral angiopathy (496375363) Type 2 diabetes mellitus with diabetic peripheral angiopathy without gangrene (E11.51) Active confirmed Q7(A), Q8(2B), Q9(1B,2C) Encounters Encounter Location Date Provider Diagnosis [facility] [place] [address] [place] [id number] 02/18/2025 Jas Love Plan Of Treatment Pending Test Test Name Order Date X ray : Foot, left 3V 02/22/2024 Insurance Providers Payer Name Payer Address Payer Phone Subscriber Number Group Number Insured Name Patient Relationship to Insured Coverage Start Date Coverage End Date Medicare National Govt Sv[employer] [address] [place] [address] [id number] Jaime Hamlin Self - patient is the insured 7 [employer] [address] [place] [address] [phone] [id number] Jaime Hamlin Self - patient is the insured Medical (General) History Medical History History ICD Code covid-19 Diabetic Heart disease High blood pressure Kidney disease Reflux ( GERD) Stomach ulcer Surgical History Surgery Date(Month/Year) Gall bladder removal
--- OUTSIDE RECORDS SUMMARY | 2025-04-09 11:55 | XMS_ITS | Encounter Summary ---
Author Organization [employer] Address [address] [facility] 7t [place] [address] Care Team Providers Care Prosthodontist/Educator Name Role Phone Jeanna Oleary MD Primary Care Provider [phone] Estefanía Cervantes PharmD Unavailable [phone] Encounter Details Date Type Department Care Team (Late st Contact Info) Description 01/01/2024 Orders Only [facility] P[facility]S [address] [place], [place] [phone] Jeanna Oleary MD [address] [place], [place] [phone] Type 2 diabetes mellitus with hyperglycemia, with long-term current use of insulin ([facility]) (Primary Dx) Social History Tobacco Use Types [...] documented as of this encounter Care Teams Prosthodontist/Educator Relationship Specialty Start Date End Date Jeanna Oleary MD [address] [place] [address] PCP - General Internal Medicine 12/19/16 Estefanía Cervantes PharmD [address] [place] [address] Pharmacist Internal Medicine 06/03/24 01/25/25 documented as of this encounter
--- OUTSIDE RECORDS SUMMARY | 2025-04-09 11:55 | XMS_ITS | Encounter Summary ---
Author Organization [employer] Address [address] [facility] 7[address] [place] [address] Care Team Providers Care Floorworker Lasting Name Role Phone Jeanna Oleary MD Primary Care Provider [phone] Estefanía Cervantes PharmD Unavailable [phone] Encounter Details Date Type Department Care Team (Late st Contact Info) Description 12/04/2023 Orders Only [facility] P[facility] [address] [place], [place] [phone] Jeanna Oleary MD [address] [place] [address] Class 3 severe obesity due to excess calories without serious comorbidity with body mass index (BMI) of 40.0 to 44.9 in adult (CMS/HCC) (Primary Dx); Type 2 diabetes mellitus with hyperglycemia, with long-term current use of insulin ([facility]) Social History Tobacco Use Types [...] documented as of this encounter Care Teams Floorworker Lasting Relationship Specialty Start Date End Date Jeanna Oleary MD [address] [place] [address] PCP - General Internal Medicine 12/19/16 Estefanía Cervantes PharmD [address] [place] [address] Pharmacist Internal Medicine 06/03/24 01/25/25 documented as of this encounter
--- OUTSIDE RECORDS SUMMARY | 2025-04-09 11:55 | XMS_ITS | Encounter Summary ---
Author Organization [employer] Address [address] [facility] [address], [place] [address] Care Team Providers Care Staff Mine Warfare Officer Name Role Phone Jeanna Oleary MD Primary Care Provider [phone] Estefanía Cervantes PharmD Unavailable [phone] Reason for Visit * Reason Comments Med Refill Encounter Details Date Type Department Care Team (Late st Contact Info) Description 07/04/2022 Refill [facility] [address] [place] [address] Jeanna Oleary MD [address] [place], [place] [phone] Mixed simple and mucopurulent chronic bronchitis (CMS/HCC) [...] (HCC) documented in this encounter Care Teams Staff Mine Warfare Officer Relationship Specialty Start Date End Date Jeanna Oleary MD [address] [place] [address] PCP - General Internal Medicine 12/19/16 Estefanía Cervantes PharmD [address] [place] [address] Pharmacist Internal Medicine 06/03/24 01/25/25 documented as of this encounter
[2025-04-09 13:16] LABS: Anion Gap 12 (12-20); Blood Urea Nitrogen 16 mg/dL (9-16); Calcium 9.9 mg/dL (8.4-10.2); Carbon Dioxide 29 mmol/L (22-29); Chloride 102 mmol/L (96-108); Estimated Glomerular Filt Rate > 60; Potassium 4.7 mmol/L (3.3-5.1); Sodium 138 mmol/L (135-145)
[2025-04-09 14:09] LABS: Total Protein Urine Random 25 mg/dL (<12)
== END 2025-04-09 10:04 | disposition home or self-care (01) ==
LOC: HO.HMGCLDS 10:03
PROVIDERS: PCP Internal Medicine; Visit Provider Internal Medicine Hypertension Specialist
DX: N18.9 Chronic kidney disease, unspecified (principal)
CPT/HCPCS: 36415; 80048; 82570; 84156

== ENCOUNTER 2025-04-14 09:21 | Outpatient (AMB) | payer MEDICARE, SELFPAY ==
[2025-04-14 09:28] VITALS: BP 110/62; PULSE 80; O2SAT 96; BMI 25.0
--- NOTE | 2025-04-14 09:28 | HO.NEPHOV_ITS ---
Vital Signs 04/14/25 09:28 Height 5 ft 10 in Weight 174 lb BMI 25.0 BP 110/62 Blood Pressure Location Lt brachial Position Sitting Pulse 80 Pulse Source Pulse Oximeter Pulse Oximetry (%) 96 Oxygen Delivery Method Room Air Intake Visit Reasons: 6 MO FU Track Leader Required: No Accompanied by: Spouse Allergies oxycodone (OXYCODONE) Adverse Reaction (Intermediate, Verified 04/14/25 09:31) HALLUCINATIONS, DIZZINESS simvastatin Adverse Reaction (Intermediate, Verified 04/14/25 09:31) myalgias elevated CPK HPI Comments Details: History of Present Illness The patient is a 69 year old male presenting for a follow-up visit for chronic kidney disease, hypertension, and hyperkalemia. He has achieved significant weight loss, going from 289 lbs to 174 lbs, which he attributes to diet and taking Mounjaro, which also helped curb his appetite. His hypertension is treated with metoprolol and losartan. The losartan is continued at a low dose for renal protection due to a history of mild proteinuria, despite his blood pressure readings being low. He denies symptoms of lightheadedness or leg swelling. Recent laboratory results show marked improvement, with his creatinine decreasing from 1.14 in October to 0.88. His potassium levels have normalized to 4.7, resolving his previous hyperkalemia. He has a history of low hemoglobin but denies any current bleeding. He is followed by a psychotherapist counselor, Dr. Shah, for evaluation of nonalcoholic steatohepatitis (BRODY) and is scheduled for an endoscopy and a liver ultrasound. His history of diabetes and being overweight are noted as contributing factors, and it is anticipated that his recent weight loss will im prove the fatty liver. The patient also reports a recurrent rash that appears in the summer. [facility] Medical History PAF (paroxysmal atrial fibrillation) Hyperplastic polyps of stomach Anemia Atrial fibrillation Hypertension Hyperlipidemia Type 2 diabetes mellitus Respiratory failure with hypoxia and hypercapnia COPD (chronic obstructive pulmonary disease) Nocturnal hypoxemia TAE (obstructive sleep apnea) Obesity (BMI 30-39.9) Personal history of nicotine dependence Cervical disc herniation Erectile dysfunction Gynecomastia Hypogonadism in male Sialolithiasis of submandibular gland COVID-19 vaccine series completed Surgical History History of cardiac ablation for atrial fibrillation History of umbilical hernia repair History of vasectomy History of colonoscopy History of appendectomy History of uvulopalatopharyngoplasty History of repair of right rotator cuff History of right knee surgery History of cardioversion History of cervical discectomy History of esophagogastroduodenoscopy (EGD) H/O prior ablation treatment (04/09/20) History of penile implant History of cholecystectomy Family History Father No problems noted. Mother No problems noted. Social History Household Members: Spouse Housing: House Are you a primary client care consultant to a significant other at home: No Do you presently have visiting nurse or other home services: No Alcohol intake: current Alcohol intake frequency: a few times a month Alcohol type: beer Patient Tobacco Use Status: Former Tobacco user Tobacco use type: Cigarette Cigarette Packs Per Day: 2.5 Cigarettes Per Day: 50.0 Years Smoked: 40 Physical Exam Exam Exam: Physical Exam General: Awake. Comfortable. HENT: Neck supple. Mucosa moist. Pulmonary: Lungs aeration equal. No rales. Cardiology: Heart S1-S2 heard. No gallop. Abdomen: Soft. Non tender. Bowel sounds normal. Neurologic: No involuntary movements. No myoclonus. Extremities: No edema. Rash present. Vital Signs: Last Vital Signs Pulse 80 04/14/25 09:28 BP 110/62 04/14/25 09:28 Pulse Ox 96 04/14/25 09:28 Oxygen Delivery Method Room Air 04/14/25 09:28 BMI result Body Mass Index 25.0 Const General: comfortable; No acute distress Orientation/consciousness: patient oriented x3 Eyes General: appearance normal, both eyes and all related structures Visual Barboza: normal visual barboza by confrontation Neck Neck: Yes supple and Yes no JVD Resp Effort & Inspection: normal respiratory effort and respiratory effort not decreased Auscultation: rhonchi Cardio Palpation: no palpable S3 and no palpable S4 Heart sounds: no rubs GI Inspection: Yes normal to inspection Palpation (GI): Soft to palpation Percussion: Yes normal to percussion Auscultation: normal bowel sounds General: Yes no CVA tenderness Back/Spine/Pelvis Back: no CVA tenderness Skin General skin exam: no petechiae and no purpura Neuro General: patient oriented x3 and no focal motor deficits Extrem General: No clubbing and No edema Results Reviewed Nephrology Results: Hgb, (14.0-18.0) 12.3 g/dl L Δ 03/01/25 WBC, (4.8-10.8) 4.6 X10*3/uL L 03/01/25 Plt Count, (160-400) 150 X10*3/uL L Δ 03/01/25 Sodium, (135-145) 138 mmol/L 04/09/25 Potassium, (3.3-5.1) 4.7 mmol/L 04/09/25 Chloride, (96-108) 102 mmol/L 04/09/25 Carbon Dioxide, (22-29) 29 mmol/L 04/09/25 BUN, (9-16) 16 mg/dL 04/09/25 Creatinine, (0.5-1.4) 0.88 mg/dL 04/09/25 Calcium, (8.4-10.2) 9.9 mg/dL Δ 04/09/25 Urine Creatinine 37.07 mg/dL 04/09/25 Assessment & Plan Assessment & Plan (1) Anemia: Code(s): D64.9 - Anemia, unspecified Category: Medical Plan: Primarily to iron deficiency. Hemoglobin is improving (2) CKD (chronic kidney disease): Code(s): N18.9 - Chronic kidney disease, unspecified Category: Medical Plan: charlie has stage II CKD. Mild bump in Cr to 1.14 and down to 0.88 Keep Losartan due to proteinuria ( UPCR 514) Continue to avoid nephrotoxic agents and hypotension. (3) Hyperkalemia: Code(s): E87.5 - Hyperkalemia Category: Medical Plan: Under control Stay on low K diet Plan Plan 1. Chronic Kidney Disease - Creatinine has shown significant improvement, decreasing from 1.14 to 0.88, which is noted to be the best it has been in a long time. - Losartan will be continued at a low dose for its renal protective effects due to a history of proteinuria. - No other medication changes are being made at this time. - Plan to follow up in 6 months. 2. Hypertension - The patient's blood pressure is well controlled and noted to be low on his current regimen of metoprolol and losartan. - Continue current medications without change. - The patient was advised to monitor for symptoms of hypotension, such as lightheadedness, and to inform the provider if they occur, at which point an adjustment to metoprolol would be considered. 3. Hyperkalemia - The patient's hyperkalemia has resolved, with a recent potassium level of 4.7. - No changes in management are required at this time. 4. Nonalcoholic Steatohepatitis (Brody) - The patient is under the care of a psychotherapist counselor for evaluation of BRODY. - He is scheduled for an endoscopy and a liver ultrasound to assess for liver stiffness. - Continue with weight loss efforts, as this is expected to lead to improvement in fatty liver. Patient Instructions - Continue taking your metoprolol and losartan as prescribed for your blood pressure and to protect your kidneys. - Please let me know if you begin to feel lightheaded or dizzy, as your blood pressure could be too low. - Keep up the great work with your diet and weight loss. - Make sure to keep your follow-up appointments with your GI doctor for your scheduled tests. - It is better to drink water than soda. If you choose to drink soda, please limit it to one or two cans a day at most. - We will see you back in the office in six months. Patient was informed and verbally consented to the use of an ambient scribe for clinic note documentation during this visit. Orders: Orders Comprehensive Met. Panel 6 Months K74.60 - Unspecified cirrhosis of liver, N18.9 - Chronic kidney disease, unspecified Complete Blood Count no Diff 6 Months K74.60 - Unspecified cirrhosis of liver, N18.9 - Chronic kidney disease, unspecified Total Protein Urine Random 6 Months K74.60 - Unspecified cirrhosis of liver, N18.9 - Chronic kidney disease, unspecified UA and rflx microscopic 6 Months K74.60 - Unspecified cirrhosis of liver, N18.9 - Chronic kidney disease, unspecified Creatinine Urine 6 Months K74.60 - Unspecified cirrhosis of liver, N18.9 - Chronic kidney disease, unspecified Coding Level of Care Code Est Pt Level 4 (06048) Diagnoses Anemia D64.9 CKD (chronic kidney disease) N18.9 Hyperkalemia E87.5
== END 2025-04-14 09:45 | disposition home or self-care (01) ==
LOC: HO.HKA 09:22
PROVIDERS: PCP Internal Medicine; Visit Provider Internal Medicine Hypertension Specialist
DX: D64.9 Anemia, unspecified (principal); N18.9 Chronic kidney disease, unspecified; E87.5 Hyperkalemia
CPT/HCPCS: 99214

== ENCOUNTER → 2025-04-14 09:21 | Outpatient (BNVA) | payer MEDICARE, SELFPAY | PROVIDERS: PCP Internal Medicine; Visit Provider Internal Medicine Hypertension Specialist | DX: N18.2 Chronic kidney disease, stage 2 (mild) (principal); D63.1 Anemia in chronic kidney disease; E87.5 Hyperkalemia; K75.81 Nonalcoholic steatohepatitis (NASH) | CPT/HCPCS: 99212 ==